=== PATIENT | male | born 1950 | race Caucasian/White ===

== ENCOUNTER → 2019-03-26 | Outpatient (CLI) | payer BC, SELFPAY ==
[2019-03-13 15:57] VITALS: BMI 26.6
--- NOTE | 2019-03-26 14:00 | CDU_ITS ---
Reason For Study: Syncope Rt. Velocities/BP Lt. Velocities/BP Prox CCA 94.3/20 cm/sec. Prox CCA 113.8/22.5 cm/sec. Mid CCA 102.1/26.5 cm/sec. Mid CCA 99.2/24.3 cm/sec. Dist CCA 77.3/21.3 cm/sec. Dist CCA 84.6/20.6 cm/sec. Prox ICA 70.8/18.6 cm/sec. Prox ICA 55.1/16.3 cm/sec. Mid ICA 61.7/23.9 cm/sec. Mid ICA 74/24.8 cm/sec. Dist ICA 93/31.7 cm/sec. Dist ICA 95.5/37.1 cm/sec. Rt. ICA/CCA = 1.0. Lt. ICA/CCA = 1.0. Prox ECA 100.8/17.3 cm/sec. Prox ECA 104.7/17 cm/sec. Rt. Vert. 43.6/10.2 cm/sec. Lt. Vert. 59.8/18.2 cm/sec. Right Extracranial There is intimal thickening but no significant atherosclerotic plaque noted in the right common carotid artery. There is heterogeneous, irregular atherosclerotic plaque noted in the right internal carotid artery. There is intimal thickening but no significant atherosclerotic plaque noted in the right external carotid artery. Antegrade flow is noted in the right vertebral artery. Left Extracranial There is intimal thickening but no significant atherosclerotic plaque noted in the left common carotid artery. There is homogeneous, irregular atherosclerotic plaque noted in the left internal carotid artery. There is no significant atherosclerotic plaque noted in the left external carotid artery. Antegrade flow is noted in the left vertebral artery. Procedure Carotid Duplex 29068. Exam performed in department. 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 <50% stenosis right external carotid Smooth plague at the proximal left internal carotid with <50% stenosis. <50% stenosis left external carotid Patent and antegrade vertebrals bilaterally with <50% stenosis Ordering Physician: Maynor Carter Referring Physician: Mars Garcia Performed By: Gladys Harley RVT
--- NOTE | 2019-03-26 14:05 | ECHOD_ITS ---
Version 2 Reason For Study: syncope/near syncope Procedure This was a 2D Doppler, Color Flow transthoracic echocardiogram. Exam performed in department. Left Ventricle Normal LV size. Left ventricular systolic function is normal. The estimated ejection fraction is 60 %. Stage 1 diastolic dysfunction. No regional wall motion abnormalities noted. Right Ventricle Normal RV size. Normal systolic function. Atria Normal left atrium. Normal right atrium. Mitral Valve Normal mitral valve. Tricuspid Valve Normal tricuspid valve. Mild (1+) tricuspid valve insufficiency. Pulmonary artery systolic pressure is 30 mmHg. Aortic Valve The aortic valve is not well visualized. Pulmonic Valve Normal pulmonic valve. Great Vessels Normal aortic root. The pulmonary artery is normal size. Normal inferior vena cava. Pericardium/Pleural No pericardial effusion. MMode/2D Measurements & Calculations LVIDd: 4.5 cm IVSd: 1.0 cm Ao root diam: 3.5 cm LVIDs: 3.2 cm LVPWd: 1.0 cm RVDd: 3.3 cm FS: 29.9 % LAV(MOD-bp): 61.7 ml LA A4 area: 18.1 cm2 LA dimension(2D): 3.6 cm LAV(MOD-bp) Indexed: 29.4 ml/m2 LAV(MOD-sp2): 57.4 ml LAV(MOD-sp4): 57.2 ml RA A4 area: 12.8 cm2 Time Measurements MV dec time: 0.20 sec Doppler Measurements & Calculations MV E max ubaldo: 71.3 cm/sec Lat Peak E' Ubaldo: 11.5 cm/sec Med Peak E' Ubaldo: 7.7 cm/sec MV A max ubaldo: 104.4 cm/sec E/E' lat: 6.2 E/E' med: 9.2 MV E/A: 0.68 Ao V2 max: 151.1 cm/sec LV V1 max: 132.1 cm/sec PA V2 max: 92.4 cm/sec Ao max P.1 mmHg LV V1 max P.0 mmHg TR max ubaldo: 255.5 cm/sec TR max P.1 mmHg Interpretation Summary Normal LV size. Left ventricular systolic function is normal. The estimated ejection fraction is 60 %. Stage 1 diastolic dysfunction. Mild (1+) tricuspid valve insufficiency. The study was technically difficult. Ordering Physician: Maynor Carter Referring Physician: Mars Garcia Performed By: Fidelia Watson RDCS, RVT
== END | disposition home or self-care (01) ==
PROVIDERS: Family Provider Family Medicine; PCP Family Medicine; Referring Provider Internal Medicine Cardiovascular Disease; Visit Provider Internal Medicine Cardiovascular Disease
DX: R55 Syncope and collapse (principal); I10 Essential (primary) hypertension
CPT/HCPCS: 93306; 93880

== ENCOUNTER 2020-01-26 10:18 | Emergency (ER) | payer BC, SELFPAY ==
[2019-03-13 15:57] VITALS: BMI 26.6
[2020-01-26 10:19] VITALS: BP 111/71; PULSE 111; RESP 18; TEMP 36.4; O2SAT 98; BMI 24.4
--- NOTE | 2020-01-26 10:42 | EKG12_ITS ---
Test Reason : Blood Pressure : / mmHG Vent. Rate : 099 BPM Atrial Rate : 099 BPM P-R Int : 146 ms QRS Dur : 078 ms QT Int : 376 ms P-R-T Axes : 010 073 058 degrees QTc Int : 482 ms Normal sinus rhythm Abnormal ECG Confirmed by LUCILA DUFFY MD ([id number]), purchase request editor KAREN DE LEÓN ([id number]) on 01/28/2020 3:17:45 PM Referred By: LORI Confirmed By:LUCILA DUFFY MD
--- NOTE | 2020-01-26 10:42 | CT_ITS ---
STUDY: CT ABDOMEN AND PELVIS WITH CONTRAST REASON FOR EXAM: Male, 69 years old. FALL X1 WEEK AGO WHILE INTOXICATED -- UNABLE TO RECALL FALL RADIATION DOSAGE (If Supplied By Facility): CTDIvol = ( 14.62 ) mGy, DLP = ( 883.10 ) mGycm TECHNIQUE: Transaxial images were obtained from the dome of the diaphragm to the symphysis pubis without oral contrast. IV 100mL Isovue-300 was administered. Sagittal and coronal images were reconstructed. Individualized dose optimization techniques were used for this CT. COMPARISON: None. FINDINGS: The visualized lung bases are unremarkable. The visualized portions of the heart are within normal limits. Normal liver. Normal gallbladder and extrahepatic biliary system. Normal spleen. Normal pancreas. Normal bilateral adrenal glands. Normal right kidney. Normal left kidney. Normal visualized stomach. Normal small intestine. Fecal retention in the colon. Mild colonic diverticulosis. The appendix is visualized and appears normal. Calcified abdominal aorta. Normal inferior vena cava. Normal retroperitoneum. Mild wall thickening of the urinary bladder. Fatty density at the inguinal canals. Normal abdominal wall. Old right rib fractures. Degenerative vertebral changes. Mild compression of T11, of questionable. CT/Abdomen/Pelvis W IV Cont ONLY IMPRESSION: Diffuse colonic fecal retention. Colonic diverticulosis. Wall thickening of the urinary bladder. Mild compression of T11, of questionable age. Electronically Signed: Tommy Landis DO at 13:01 EDT Tel [phone], Service support ,
--- NOTE | 2020-01-26 10:44 | RAD_ITS ---
STUDY: X-RAY - BILATERAL RIBS WITH CHEST REASON FOR EXAM: Male, 69 years old. TRAUMA/FALL. PAIN ACROSS POSTERIOR RIBS TECHNIQUE - RIBS: 8 view(s) of the ribs. TECHNIQUE - CHEST: Single frontal view of the chest. COMPARISON: None. FINDINGS - RIBS : Normal visualized ribs without a demonstrated fracture. FINDINGS - CHEST: The lungs are clear and expanded. There is no demonstrated pleural abnormality. Normal size heart. Normal mediastinum and bang. Normal visualized pulmonary arteries. There is atherosclerotic calcification of the aortic arch with tortuosity. There are diffuse degenerative changes of the visualized thoracic spine. Normal visualized ribs, clavicles, and shoulders. There is no demonstrated abnormality of the visualized soft tissue structures of the upper abdomen. RAD/Ribs Rasta Min 4V w/PA Chest IMPRESSION: RIBS: Normal x-ray examination of the bilateral ribs. CHEST: Degenerative changes, as described above. No demonstrated acute cardiopulmonary process. Electronically Signed: Isaiah Nur MD at 12:42 EDT , Service support ,
--- NOTE | 2020-01-26 10:45 | ED.VIS.FALL ---
History of Present Illness Chief Complaint: Back Informant: Patient Occurred: Weeks Mechanism/Context: Same level fall, - - syncope Usually ambulates: Without assistance Location: back, ribs Quality of Pain: Aching Narrative: Patient is a 69-year-old male with history of hypertension, EtOH abuse, dizziness, thrombocytopenia, neuropathy of the left lower extremity and fatty liver disease presenting for evaluation for back pain. Patient had a fall 1 week ago. Patient was drinking and was standing in the doorway talking to his when he turned to leave the room. Patient then became lightheaded and passed out. He woke up on the ground. He believes he hit the door frame when he fell. He hit it with his head and his back. Patient states he does have a history of lightheadedness and syncope when he stands up too fast but is not happened in some time. Patient did sustain abrasions to his scalp. Over the past week he is continued to have significant pain in his lower back is not relieved with heating pads or naproxen. States is worse when he tries to walk or move. He states it feels like spasms. Pain is bilateral does not radiate. He also notes he has pain on his right side when he takes a deep breath. Patient was afraid he might have broken something so he finally came to be evaluated today. He states he initially went to urgent care but he had abnormal vital signs so he was sent to the emergency room. Urgent care transmitted a report stating that he was 88/58 blood pressure with a heart rate of 120 for them. Patient denies any bowel or bladder incontinence. He denies any dysuria or hematuria. He denies any chest pain, shortness of breath or difficulty breathing however his has told him that he is been breathing harder with his daily activities for the past few days. Patient denies any other complaints at this time. Past Medical History - Allergies and Home Meds Allergies/Adverse Reactions: Allergies No Known Allergies Allergy (Verified 01/26/20 10:21) Primary Care Physician: Onur Garcia MD [Primary Care Provider] - Past Medical History: - - hypertension, EtOH abuse, dizziness, thrombocytopenia, neuropathy of the left lower extremity and fatty liver disease Surgical History: no surgical history Lives: Spouse/ Significant Other Smoking Status: Never smoker Alcohol: Heavy Review of Systems General: Denies: Chills, Fever, Sweats Eyes: Denies: Visual changes - bilaterally, Diplopia ENT: Denies: Rhinorrhea, Sore throat Cardiovascular: Denies: Chest pain, Palpitations Respiratory: Reports: - - Heavy breathing. Denies: Dyspnea, Cough, Dyspnea on exertion Gastrointestinal: Denies: Abdominal pain, Nausea, Vomiting, Diarrhea, Melena, Hematochezia Genitourinary: Denies: Dysuria, Hematuria, Frequency Musculoskeletal: Reports: Back pain, - - Rib pain. Denies: Extremity Pain Skin: Reports: Abrasions - Scalp. Denies: Rash, Wounds Neurological: Reports: Parasthesia - Chronic?left lower extremity, unchanged. Denies: Headache, Weakness, Numbness Physical Exam Vital Signs/Narrative: Vital Signs Temp Pulse Resp BP Pulse Ox 01/26/20 10:19 97.5 F L 111 H 18 111/71 98 Inital Vital Signs reviewed: Yes General: Well nourished, Well developed Head: Normocephalic, - - Scattered facial abrasions over the scalp that are well scabbed over and healing, healing ecchymosis over the right forehead into the parietal area, again appear to be healing Eyes: Perrl, EOMI ENT: TM's clear, No hemotympanum or drainage, No trauma. Negative for: Nasal trauma, Nasal septal hematoma Neck: Nontender, Full ROM. Negative for: Spinal Tenderness, Paraspinal Tenderness Cardiovascular: Regular rhythm, No murmurs, Tachycardia Respiratory: No distress, CTA bilaterally, Chest tenderness - Right posterior lower ribs, - - No chest wall ecchymosis, crepitus or deformity Abdomen: Soft, Nontender, Nondistended, Normal bowel sounds Back: CVA Tenderness - Right, - - No midline tenderness or step-off sign. 8 cm irregular circumferential area of ecchymosis of the left lumbar region Extremeties: Pelvis is stable. No joint deformities or effusions. Lower extremities are the same length with no rotation Skin: Normal color, No rash, Trauma - Healing ecchymosis of the left neural lumbar region, see above Neurological: Alert, Oriented x3, Cranial nerves II-XII grossly intact, Normal Strength, Normal Sensation, - - Normal coordination Psychological: Normal affect Diagnostic/Tx/Re-eval Clinical Impression(s) from Imaging Studies Abdomen/Pelvis CT 01/26/20 10:42 IMPRESSION: Diffuse colonic fecal retention. Colonic diverticulosis. Wall thickening of the urinary bladder. Mild compression of T11, of questionable age. Electronically Signed: Tommyayesha Landis DO at 13:01 EDT Tel [phone], Service support , Ribs w/Chest X-Ray 01/26/20 10:44 IMPRESSION: RIBS: Normal x-ray examination of the bilateral ribs. CHEST: Degenerative changes, as described above. No demonstrated acute cardiopulmonary process. Electronically Signed: Isaiah Nur MD at 12:42 EDT , Service support , Laboratory Data 01/26/20 01/26/20 01/26/20 10:50 10:50 10:50 WBC 7.2 RBC 2.89 L Hgb 10.6 L Hct 30.7 L MCV 106.2 H MCH 36.7 H MCHC 34.5 RDW Std Deviation 58.1 H RDW Coeff of [place] 15.0 H Plt Count 173 MPV 9.0 Immature Gran % (Auto) 0.300 Neut % (Auto) 73.9 H Lymph % (Auto) 11.8 L Logan % (Auto) 11.9 H Eos % (Auto) 1.3 Baso % (Auto) 0.8 Absolute Neuts (auto) 5.3 Absolute Lymphs (auto) 0.85 Nucleated RBC % 0 PT 14.4 INR 1.2 APTT 28.5 Sodium 136 Potassium 3.0 L Chloride 99 Carbon Dioxide 29.0 Anion Gap 8 BUN 29 H Creatinine 1.31 H Estim Creat Clear Calc 60.06 Est GFR (MDRD) Af Amer 70 Est GFR (MDRD) Non-Af 58 L BUN/Creatinine Ratio 22.1 H Glucose 153 H Calcium 9.1 Total Bilirubin 1.40 H AST 73 H ALT 50 Alkaline Phosphatase 144 H Troponin I < 0.015 Total Protein 7.7 Albumin 3.5 Globulin 4.2 Albumin/Globulin Ratio 0.8 L Lipase 145 Urine Color Urine Clarity Urine pH Ur Specific [place] Urine Protein Urine Glucose (UA) Urine Ketones Urine Occult Blood Urine Nitrite Urine Bilirubin Urine Urobilinogen Ur Leukocyte Esterase Urine RBC Urine WBC Ur Squamous Epith Cells Urine Bacteria Urine Mucus 01/26/20 12:25 WBC RBC Hgb Hct MCV MCH MCHC RDW Std Deviation RDW Coeff of [place] Plt Count MPV Immature Gran % (Auto) Neut % (Auto) Lymph % (Auto) Logan % (Auto) Eos % (Auto) Baso % (Auto) Absolute Neuts (auto) Absolute Lymphs (auto) Nucleated RBC % PT INR APTT Sodium Potassium Chloride Carbon Dioxide Anion Gap BUN Creatinine Estim Creat Clear Calc Est GFR (MDRD) Af Amer Est GFR (MDRD) Non-Af BUN/Creatinine Ratio Glucose Calcium Total Bilirubin AST ALT Alkaline Phosphatase Troponin I Total Protein Albumin Globulin Albumin/Globulin Ratio Lipase Urine Color Yellow Urine Clarity Sl. Cloudy Urine pH 6.5 Ur Specific [place] 1.010 Urine Protein 30 H Urine Glucose (UA) Normal Urine Ketones 15 H Urine Occult Blood Negative Urine Nitrite Negative Urine Bilirubin 3 H Urine Urobilinogen 8 H Ur Leukocyte Esterase 500 H Urine RBC 0 SEEN Urine WBC 5-10 SEEN Ur Squamous Epith Cells 0-5 SEEN Urine Bacteria 1+ Urine Mucus 0 SEEN - Rhythm Strip Rhythm Strip: Sinus Rhythm Rate: 99 Ectopy: None - EKG Initial EKG Interpretation: Sinus Rhythm, - - Full [place] and QRS intervals QTc [address] segments - Medical Decision Making Patient evaluated for back pain after fall. Patient had associated syncope that caused the fall however it was a week ago. He is tachycardic in the emergency room. He was initially at urgent care he was hypotensive and tachycardic. This is why he was sent to the ER. Patient does have significant ecchymosis of his left lower back and I am concerned about a potential for internal injury. Would also like to do a CT of his head however patient declined stating that he does not have any headache or head symptoms and it is been a week. Given his normal neurologic exam and the fact that patient has capacity, patient has a right to refuse a head CT. Patient is anemic however chart review in [facility] shows that his hemoglobin on 03/05/2019 was 10.3. Patient has a mildly elevated creatinine but again this appears to be his baseline. No significant electrolyte or laboratory abnormalities. Urinalysis is consistent with a UTI. Patient notes he has been peeing more frequently and he will be treated. Culture is ordered. She is given a one-time dose of morphine IV in the emergency room and has significant improvement of his symptoms. He had a liter of IV fluids. His tachycardia resolved. Patient next becomes hypertensive while in the emergency room. When patient walks he does seem a little unsteady but he states this is stayed normal for him because of his neuropathy in his leg. CT of the abdomen pelvis not show any large hematoma or bleed. Does show a T11 compression fracture of uncertain age. Patient is clean of back pain but does not have significant pinpoint tenderness in this area. Patient will be discharged home in a course of Keflex, Xylocaine patches for his back pain as well as a short course of Flexeril. Patient is counseled on the risk of sedation and falls with Flexeril and caution be very careful with him. He is instructed to follow-up with his primary care doctor for reevaluation. Patient is counseled on signs and symptoms requiring return to the emergency room. Patient verbalizes agreement and understand this plan. Patient discharged home in stable and improved condition. ED Disposition - Plan for ED Patient: Disposition: Home or Assisted Living Diagnosis: Fall, UTI (urinary tract infection), Compression fracture of T11 vertebra, Back contusion, Rib contusion Instructions: Back Fracture (Compression Fracture), ED Contusion Back, ED CYSTITIS Male Adult, ED Contusion Vs Minor Fx Rib Prescriptions: cycloBENZAPRine HCl [Flexeril] 10 mg PO TID PRN PRN #15 tab PRN Reason: Spasms Transmission Status: Received by [facility]/pharmacy #[id number] Cephalexin [Keflex] 500 mg PO Q12 #10 cap Transmission Status: Received by [facility]/pharmacy #[id number] Methyl Salicylate/Menthol [Salonpas Patch] 1 ea TP DAILY #10 adh..patch Transmission Status: Received by [facility]/pharmacy #[id number] Referrals: Onur Garcia MD [Primary Care Provider] - Additional Instructions: Your CT showed a compression fracture at T11 vertebrae. It is not clear if this is an acute fracture versus an old fracture. This might be contributing to your severity of pain as well as the bruising in your back and ribs from your fall. Please follow-up with your primary care doctor in the next week for evaluation of your passing out and a reevaluation of your back and rib pain. Please limit any alcohol use to prevent further falls. Your urine test does look like you have a UTI. The antibiotics should resolve this.
--- NOTE | 2020-01-26 10:47 | NURSING ---
NO OLD EKGS
[2020-01-26 10:49] VITALS: BP 128/94; PULSE 95; RESP 15
[2020-01-26] MEDS: 0.9% Normal Saline 1,000 ML 1000 ML IV (10:54)
[2020-01-26] MEDS: fentaNYL 100 MCG/2 ML Ampul 50 MCG IV (10:54)
[2020-01-26 11:01] LABS: Absolute Lymphocyte Count 0.85 X10^3/uL (0.83-4.51); Absolute Neutrophil Count 5.3 X10^3/uL (2.0-7.7); Basophil# 0.06 X10^3/uL; Basophil% 0.8 % (0-1); Eosinophil# 0.09 X10^3/uL; Eosinophils% 1.3 % (0-5); Hematocrit 30.7 % (40-54); Hemoglobin 10.6 g/dL (13.0-16.5); Lymphocyte # 0.85 X10^3/ul (4.0); Lymphocyte % 11.8 % (19-41); Mean Corp Hgb Conc 34.5 g/dL (32-36); Mean Corpuscular Hgb 36.7 pg (27.0-32.0); Mean Corpuscular Volume 106.2 fL (80-94); Monocyte# 0.86 X10^3/uL; Monocyte% 11.9 % (0-10); NRBC Flagged by Analyzer 0 % (0-5); Neutrophil # 5.32 X10^3/uL (2.7-7.7); Neutrophil % 73.9 % (47-70); Platelet Count 173 K/mm3 (150-450); RBC Distribution Width SD 58.1 fl (35.1-43.9); Red Blood Count 2.89 M/mm3 (4.6-6.2); White Blood Count 7.2 K/mm3 (4.4-11.0)
[2020-01-26 11:09] LABS: International Normalized Ratio 1.2; Prothrombin Time (Protime)PT. 14.4 SECONDS (11.7-14.9)
[2020-01-26 11:10] LABS: Partial Thromboplast Time 28.5 Seconds (24.1-36.2)
[2020-01-26 11:19] LABS: ALB/GLOB Ratio 0.8 RATIO (0.9-2.4); AST(SGOT) 73 U/L (15-37); Alanine Aminotransfer ALT/SGPT 50 U/L (16-61); Albumin, Serum 3.5 g/dL (3.2-5.0); Alkaline Phosphatase 144 U/L (45-117); Anion Gap 8 (5-15); BUN 29 mg/dL (7-18); BUN/Creat Ratio 22.1 RATIO (10-20); Calcium,Total 9.1 mg/dL (8.5-10.1); Chloride 99 mmol/L (98-107); Creatinine, Serum 1.31 mg/dL (0.70-1.30); EST Glomerular Filtration Rate 58 mL/min (>60); Est Glom Filt Rate - Afr Amer 70 mL/min (>60); Estimated Creatinine Clearance 60.06 ml/min; Globulin 4.2 g/dL (2.2-4.2); Glucose 153 mg/dL (74-106); Lipase 145 U/L (73-393); Protein, Total 7.7 g/dL (6.4-8.2); Sodium Level 136 mmol/L (136-145)
[2020-01-26 12:32] VITALS: BP 187/100; PULSE 90; RESP 16
[2020-01-26 12:33] LABS: Mucous, Urine 0 SEEN /hpf (<or=2+); Red Blood Cells-Urine 0 SEEN /hpf (0-5)
[2020-01-26 12:49] LABS: Color, Urine Yellow (Yellow); Glucose, Dipstick Normal (Normal); Ketone-Dipstick 15 mg/dl (Negative); Leukocyte Esterase-Dipstick 500 /ul (Negative); Nitrite-Dipstick Negative (Negative); Occult Blood-Urine Negative /ul (Negative); Protein-Dipstick 30 mg/dl (Negative); Urine Clarity Sl. Cloudy (Clear); Urine Urobilinogen 8 mg/dl (Normal); Urine pH 6.5 (5.0 - 8.0)
[2020-01-26 12:51] LABS: Urine Bilirubin Dipstick 3 mg/dL (Negative)
[2020-01-26 12:57] LABS: White Blood Cells 5-10 SEEN /hpf (0-5)
[2020-01-26 12:58] LABS: Bacteria 1+ /hpf (None Seen); Squamous Epithelial Cells - UA 0-5 SEEN /hpf (0-5)
[2020-01-26 13:31] VITALS: BP 166/94; PULSE 89; RESP 18; O2SAT 99
== END 2020-01-26 14:30 | disposition home or self-care (01) ==
PROVIDERS: Emergency Provider Emergency Medicine; PCP Family Medicine
DX: S22.089A Unspecified fracture of T11-T12 vertebra, initial encounter for closed fracture (principal); N39.0 Urinary tract infection, site not specified; S20.219A Contusion of unspecified front wall of thorax, initial encounter; S30.0XXA Contusion of lower back and pelvis, initial encounter; S00.01XA Abrasion of scalp, initial encounter; W19.XXXA Unspecified fall, initial encounter; W01.198A Fall on same level from slipping, tripping and stumbling with subsequent striking against other object, initial encounter; Y93.9 Activity, unspecified; Y92.009 Unspecified place in unspecified non-institutional (private) residence as the place of occurrence of the external cause; Y99.9 Unspecified external cause status; R00.0 Tachycardia, unspecified; I95.9 Hypotension, unspecified; D64.9 Anemia, unspecified; R55 Syncope and collapse; I10 Essential (primary) hypertension; Z79.899 Other long term (current) drug therapy
CPT/HCPCS: 71111; 74177; 80053; 81001; 83690; 84484; 85025; 85610; 85730; 87086; 87088; 93005; 96361; 96374; 99283; J7030; Q9967; A4216

== ENCOUNTER 2020-02-20 10:12 | Emergency (ER) | payer BC, SELFPAY ==
[2020-02-20 10:13] VITALS: BP 159/99; PULSE 109; RESP 18; TEMP 36.6; O2SAT 98; BMI 23.8
[2020-02-20 10:24] VITALS: BP 159/99; PULSE 109; RESP 18; TEMP 36.7; O2SAT 98
--- NOTE | 2020-02-20 10:34 | ED.DCSUM_ITS ---
- ER Visit Summary Date of Service: 02/20/20 Chief Complaint: Swelling to left elbow] History of Present Illness: The patient is a 69 M [the emergency department with swelling to the left elbow that started about 3 weeks ago. Patient states that he is able to daily express fluid from it. He denies any fever or chills. Patient states he had a similar episode years ago involving his right elbow. He has no history of gout.] Physical Examination: [HEENT-PERRLA, EOMI. Cranial nerves II through XII grossly intact. TMs clear. Mucous membranes moist. No adenopathy. Cardiovascular-regular rate and rhythm without murmur or ectopy Lungs-clear to auscultation, chest wall stable without crepitus or subcu emphysema Abdomen-normoactive bowel sounds, soft, nontender, no rebound or rigidity, no peritoneal signs. Extremities-intact ?4, normal range of motion, normal pulses. Left elbow- patient has a swollen and edematous bursa. No cellulitic changes noted. He is neurovascular intact distally. Patient has normal range of motion flexion extension at the elbow. He has normal range of motion with pronation and supination.] Test Results: [Fluid from bursa sent for analysis including culture] Emergency Department Course and Treatment: [I discussed case with orthopedic surgeon on-call Dr. Elliott who asked that I obtain some fluid for culture. Area of the left elbow was sterilely draped and prepped. Skin was cleansed with Betadine. Using an 18-gauge needle I entered the bursa and approximately 10 cc of fluid that was straw-colored was obtained.] Treatment Plan: [Patient will be treated with Keflex and referred to orthopedics for follow-up] Disposition: [Discharged home in stable condition] Impression: [Bursitis left elbow] This note was generated with [employer] dictation software. It may contain incorrect words, spelling, and punctuation that were not noted in review of the chart prior to signing ED Disposition - Plan for ED Patient: Referrals: Onur Garcia MD [Primary Care Provider] -
--- NOTE | 2020-02-20 10:37 | DCINST.ED_ITS ---
ED Disposition - Plan for ED Patient: Instructions: ED Bursitis Prescriptions: Cephalexin [Keflex] 500 mg PO Q6 #40 cap Transmission Status: Pending to [facility]/pharmacy #[id number] Referrals: Onur Gacria MD [Primary Care Provider] - Hannah Elliott DO [STAFF PHYSICIAN] - 3-5 Days
[2020-02-20 10:50] LABS: Pathologist Comment May follow
[2020-02-20 10:51] VITALS: PULSE 98; RESP 17; O2SAT 97
[2020-02-20 11:36] LABS: AUTO B FLUID DILUENT BKGD CT WBC <0.1 RBC <0.01 (W<.1,R<.01); CRYSTALS, BODY FLUID See PATH REV; Source- Body Fluid SYNOVIAL
[2020-02-20 11:37] LABS: Appearance /Synovial Fluid Clear (CLEAR); Color / Synovial Fluid Yellow (Pale Yellow); Source / Synovial Fluid LEFT ELBOW
[2020-02-20 11:54] LABS: RBC /Synovial Fluid 170 /mm3 (0)
[2020-02-20 11:58] LABS: Body Fluid QC Type(s) BF1,BF2; Lymph 11 %; Monocyte /Synovial Fluid 24 %; Neutrophil 65 % (0-25)
[2020-02-21 11:45] LABS: Pathologist Review Reviewed
== END 2020-02-20 10:51 | disposition home or self-care (01) ==
LOC: ED 10:46
PROVIDERS: Emergency Provider Emergency Medicine; PCP Family Medicine
DX: M70.22 Olecranon bursitis, left elbow (principal); Y93.9 Activity, unspecified; I10 Essential (primary) hypertension; G62.9 Polyneuropathy, unspecified; Z79.899 Other long term (current) drug therapy
CPT/HCPCS: 20605; 20610; 87070; 87075; 87205; 89050; 89051; 89060; 99282

== ENCOUNTER 2020-04-22 13:03 | Emergency (ER) | payer MEDICARE, BC, SELFPAY ==
[2020-02-24 14:53] VITALS: BMI 23.8
[2020-04-22 13:06] VITALS: BP 152/95; PULSE 96; RESP 12; TEMP 36.6; O2SAT 99; BMI 23.8
[2020-04-22 13:12] VITALS: PULSE 91; RESP 16; O2SAT 100
--- NOTE | 2020-04-22 13:33 | CT_ITS ---
We are attempting to reach an attending provider to discuss findings. An addendum with communication details will be sent when the communication is complete. STUDY: CT BRAIN WITHOUT CONTRAST REASON FOR EXAM: Male, 69 years old. HEAD INJURY, FALL RADIATION DOSAGE (If Supplied By Facility): CTDIvol = ( 44.99 ) mGy, DLP = ( 880.47 ) mGycm TECHNIQUE: Transaxial CT imaging of the brain was performed without administration of intravenous contrast material. Individualized dose optimization techniques were used for this CT. COMPARISON: No relevant priors. FINDINGS: Small left frontal scalp hematoma. Normal calvarium. There is disproportionate enlargement of the lateral and third ventricles, as compared to the extra-axial spaces. The findings suggest normal pressure hydrocephalus (NPH). Normal white matter tracts of the cerebral hemispheres. Normal basal ganglia and thalami. Normal brainstem. Normal cerebellum. Small areas of increased attenuation in the periphery of the left frontal lobe consistent with subarachnoid hemorrhage. There are areas of increased attenuation within the occipital horn of the left lateral ventricle consistent with intraventricular hemorrhage. There is some increased attenuation along left-sided brainstem consistent with subarachnoid hemorrhage. There are no findings of an acute ischemic infarction. Normal visualized paranasal sinuses. CT/Brain/Head without Contrast IMPRESSION: Small left frontal scalp hematoma with small amounts of left frontal subarachnoid hemorrhage, intraventricular hemorrhage of the left lateral ventricle and subarachnoid hemorrhage along the left side of the brainstem. Electronically Signed: Isaiah Strong MD at 14:02 EDT Tel , Service support ,
--- NOTE | 2020-04-22 13:33 | EKG12_ITS ---
Test Reason : Blood Pressure : / mmHG Vent. Rate : 096 BPM Atrial Rate : 096 BPM P-R Int : 160 ms QRS Dur : 076 ms QT Int : 366 ms P-R-T Axes : 046 -04 033 degrees QTc Int : 462 ms Normal sinus rhythm Normal ECG Confirmed by SCOTTY WESTON ([id number]), editorial assistant MAGALIS NARAYAN ([id number]) on 04/27/2020 9:35:34 AM Referred By: BROOKE Confirmed By:SCOTTY WESTON
[2020-04-22 13:54] LABS: Absolute Lymphocyte Count 2.02 X10^3/uL (0.83-4.51); Basophil# 0.06 X10^3/uL; Eosinophil# 0.23 X10^3/uL; Eosinophils% 3.9 % (0-5); Hematocrit 36.1 % (40-54); Hemoglobin 12.4 g/dL (13.0-16.5); Lymphocyte # 2.02 X10^3/ul (4.0); Lymphocyte % 34.2 % (19-41); Mean Corp Hgb Conc 34.3 g/dL (32-36); Mean Corpuscular Hgb 35.5 pg (27.0-32.0); Mean Corpuscular Volume 103.4 fL (80-94); Mean Platelet Vol. 8.8 fl (6.2-12.0); Monocyte# 0.58 X10^3/uL; Monocyte% 9.8 % (0-10); NRBC Flagged by Analyzer 0 % (0-5); Neutrophil % 50.8 % (47-70); Platelet Count 113 K/mm3 (150-450); RBC Distribution Width CV 12.9 % (11.6-14.6); RBC Distribution Width SD 48.2 fl (35.1-43.9); Red Blood Count 3.49 M/mm3 (4.6-6.2); White Blood Count 5.9 K/mm3 (4.4-11.0)
[2020-04-22] MEDS: Diphth,Pertuss(Acell),Tet Vac 0.5 ML Vial IM (13:56)
[2020-04-22] MEDS: 0.9% Normal Saline 1,000 ML 1000 ML IV (14:03)
[2020-04-22] MEDS: BACITRACIN 15 GM Tube 1 APPLIC TOPICAL (14:03)
[2020-04-22 14:04] VITALS: BP 139/88; PULSE 95; RESP 13; O2SAT 97
[2020-04-22 14:09] LABS: ALB/GLOB Ratio 0.8 RATIO (0.9-2.4); AST(SGOT) 60 U/L (15-37); Alanine Aminotransfer ALT/SGPT 24 U/L (16-61); Albumin, Serum 3.4 g/dL (3.2-5.0); Alkaline Phosphatase 149 U/L (45-117); Anion Gap 11 (5-15); BUN 11 mg/dL (7-18); BUN/Creat Ratio 12.2 RATIO (10-20); Calcium,Total 8.7 mg/dL (8.5-10.1); Chloride 103 mmol/L (98-107); EST Glomerular Filtration Rate 90 mL/min (>60); Est Glom Filt Rate - Afr Amer 108 mL/min (>60); Estimated Creatinine Clearance 87.42 ml/min; Globulin 4.4 g/dL (2.2-4.2); Glucose 93 mg/dL (74-106); Potassium 3.7 mmol/L (3.5-5.1); Protein, Total 7.8 g/dL (6.4-8.2); Sodium Level 141 mmol/L (136-145)
[2020-04-22 14:38] LABS: International Normalized Ratio 1.1; Prothrombin Time (Protime)PT. 13.8 SECONDS (11.7-14.9)
[2020-04-22 14:39] LABS: Partial Thromboplast Time 30.4 Seconds (24.1-36.2)
--- NOTE | 2020-04-22 14:48 | NURSING ---
1431 CALLED [facility]IN [facility]ADALU[facility] FOR TRANSFER.
--- NOTE | 2020-04-22 14:55 | NURSING ---
20 MIN ETA FROM PHYSICANS
[2020-04-22 14:56] VITALS: BP 139/88; PULSE 94; RESP 13; O2SAT 98
[2020-04-22 15:00] VITALS: BP 143/96; PULSE 101; RESP 16; O2SAT 97
--- NOTE | 2020-04-22 15:22 | ED.DCSUM_ITS ---
- ER Visit Summary Date of Service: 04/22/20 Chief Complaint: Syncope History of Present Illness: The patient is a 69 M who presents with a syncopal episode that occurred today. heard the patient fall and when she got to his side he was still unconscious. states patient had a loss of consciousness for approximately 3 minutes. noticed that the patient has a scalp laceration was bleeding from that. states that the patient came to and was disoriented. states that the paramedics came and were helping him into the cot when he had a second syncopal episode. Patient did not fall with a second syncopal episode because the paramedics were holding onto them. Physical Examination: Vital signs are stable. Patient is afebrile. Patient is in no acute distress. Patient is awake and alert and oriented to person and place. Patient knows the day of the week but does not know the month or the year. Cranial nerves II through XII are grossly intact. There are no focal motor or sensory deficits noted. Heart was regular rate and rhythm. Lungs are clear and equal bilaterally. Abdomen is soft and nontender. Skin is warm and dry. There is a 7 cm laceration over the left frontal and forehead area. There is moderate gapping of the wound margins. There is no bony crepitance or step- off. There is no foreign body noted. Test Results: CBC shows a mild thrombocytopenia of 113. Comprehensive metabolic profile was essentially within normal limits. PT with INR and PTT were normal. CT scan of the brain was obtained. There is a left frontal subarachnoid hemorrhage along with intraventricular hemorrhage of the left lateral ventricle and subarachnoid hemorrhage along the left side of the brainstem. This was interpreted by the radiologist. Emergency Department Course and Treatment: Patient was given a tetanus booster. The wound was cleaned and irrigated with copious amounts of normal saline. The wound was anesthetized with 1% lidocaine with epinephrine locally. The wound was closed with 8 simple interrupted #4-0 nylon sutures under sterile technique. Patient tolerated the procedure well. Bacitracin dressing was applied. Case was discussed with the [facility] transfer line. Patient was accepted to the service of Dr. Rivers. Patient will be transferred to the emergency department at [facility]. Patient and family understood and were agreeable with the plan. All questions were answered. Disposition: Transfer to [facility] Impression: 1. Subarachnoid hemorrhage 2. Syncope 3. Scalp laceration Critical care time: 50 minutes. This was time spent obtaining history, performing physical examination, documenting, interpreting test results, discussion with consultants, and determining disposition. This note was generated with [employer] dictation software. It may contain incorrect words, spelling, and punctuation that were not noted in review of the chart prior to signing ED Disposition - Plan for ED Patient: Disposition: [facility] Diagnosis: Subarachnoid hemorrhage, Syncope, Scalp laceration Referrals: Onur Garcia MD [Primary Care Provider] -
--- NOTE | 2020-04-22 15:39 | ED.RN ---
REPORT TO [facility]. PT SKIN P/W/D, RESP EVEN AND UNLABORED, PT ALERT TO SELF, NO DISTRESS NOTED. PT OUT OF ED WITH EMS FOR TRANSPORT TO [facility] ED.
== END 2020-04-22 15:46 | disposition short-term general hospital (02) ==
PROVIDERS: Emergency Provider Emergency Medicine; PCP Family Medicine
DX: S06.6X1A Traumatic subarachnoid hemorrhage with loss of consciousness of 30 minutes or less, initial encounter (principal); R55 Syncope and collapse; S01.01XA Laceration without foreign body of scalp, initial encounter; W19.XXXA Unspecified fall, initial encounter; Y93.9 Activity, unspecified; Y92.9 Unspecified place or not applicable; Y99.9 Unspecified external cause status; Z23 Encounter for immunization; M54.9 Dorsalgia, unspecified; D69.6 Thrombocytopenia, unspecified; I10 Essential (primary) hypertension; Z79.899 Other long term (current) drug therapy
CPT/HCPCS: 12002; 70450; 80053; 84484; 85025; 85610; 85730; 90715; 93005; 96360; 99285; A4216

== ENCOUNTER 2020-05-07 15:13 | Inpatient (IN) | payer MEDICARE, BC, SELFPAY ==
[2020-05-07 15:50] VITALS: BP 124/67; PULSE 89; RESP 16; TEMP 36.8; O2SAT 94; BMI 24.9; BMI 25.0
[2020-05-07] MEDS: cycloBENZAPRine HCl 10 MG Tablet PO (18:44)
[2020-05-07] MEDS: Acetaminophen 325 MG Tablet 650 MG PO (18:45)
[2020-05-07 18:55] VITALS: BP 132/64; PULSE 74; RESP 18; TEMP 36.8; O2SAT 96
[2020-05-07 19:20] VITALS: O2SAT 96
[2020-05-07] MEDS: Magnesium Hydroxide 30 ML UDC PO (20:45)
[2020-05-07] MEDS: Magnesium Oxide 400 MG Tablet PO (20:46)
[2020-05-07] MEDS: Thiamine Hydrochloride 100 MG Tablet PO (20:46)
[2020-05-07] MEDS: Senna/Docusate Sodium 1 Tablet 2 TABLET PO (20:46)
[2020-05-07] MEDS: MELATONIN 3 MG TABLET 6 MG PO (20:46)
[2020-05-07] MEDS: Propranolol 10 MG Tablet 30 MG PO (20:46)
[2020-05-07] MEDS: Tamsulosin HCl 0.4 MG Capsule PO (20:46)
[2020-05-07] MEDS: dilTIAZem 30 MG Tablet 90 MG PO (20:46)
[2020-05-07] MEDS: AMOXICILLIN 500 MG CAPSULE PO (20:47)
--- NOTE | 2020-05-07 21:41 | PCM.HP.STD ---
Problem List (1) Debility Status: Acute (2) Fall Status: Acute (3) SAH (subarachnoid hemorrhage) Status: Acute (4) IVH (intraventricular hemorrhage) Status: Acute (5) Dysphagia Status: Acute (6) Scalp hematoma Status: Acute (7) Alcohol abuse Status: Chronic (8) Lumbar spinal stenosis Status: Chronic (9) Closed T4 fracture Status: Acute (10) Closed T11 fracture Status: Acute (11) Closed L1 vertebral fracture Status: Acute (12) Closed L2 vertebral fracture Status: Acute (13) Hypertension Status: Chronic (14) Obstructive sleep apnea Status: Chronic History of Present Illness Date of Admission: 05/07/20 Chief Complaint: Here for greater than 3 hours daily rehabilitation, strengthening, prior to discharge home with . The patient is a 69 year old Male with past medical history of heavy alcohol use, hypertension, obstructive sleep apnea, suffered a fall 04/22/20, found down unconscious for 3 minutes. Presented to [facility], found to have Intracerebral hemorrhage, transferred to [facility]. His stay was complicated by dysphagia requiring temporary tube feeding via [place], agitation/confusion/combativeness. Alcohol withdrawal. He is being admitted to for greater than 3 hours daily of rehabilitation, strengthening, prior to discharge home with . Past Medical History Past Medical History (Chronic Problems): Chronic Problems (Last Updated 03/13/19 @ 16:12 by Anita Elizondo) Alcohol abuse (Chronic) Lumbar spinal stenosis (Chronic) Hypertension (Chronic) Obstructive sleep apnea (Chronic) Essential (primary) hypertension (Chronic) Medical History: Medical History (Last Updated 03/13/19 @ 16:12 by Anita Elizondo) Neuropathy of left lower extremity (Acute) G57.92 Dizziness (Acute) R42 Syncope (Acute) R55 Essential (primary) hypertension (Chronic) I10 Anemia D64.9 ETOH abuse F10.10 Fatty liver K76.0 Obstructive sleep apnea G47.33 Thrombocytopenia D69.6 Allergies No Known Allergies Allergy (Verified 04/22/20 13:04) Home Medications: Ambulatory Orders Medication Instructions Recorded Acetaminophen [Tylenol] 650 mg PO Q6H PRN PRN 05/07/20 Albuterol Inhaler [Ventolin Hfa] 2 puff INHALATION Q4H PRN PRN 05/07/20 Ampicillin Trihydrate 500 mg PO 4X/DAY 05/07/20 Ascorbic Acid [Vitamin C] 1 tab PO BID 05/07/20 Cholecalciferol (VIT D3) [Vitamin 3,000 units PO DAILY 05/07/20 D3] Diltiazem [Cardizem] 90 mg PO TID 05/07/20 Finasteride [Proscar] 5 mg PO DAILY 05/07/20 Flexeril 10 mg PO BID PRN PRN 05/07/20 Folic Acid 1 mg PO DAILY 05/07/20 Lisinopril [Zestril] 40 mg PO DAILY 05/07/20 Magnesium 500 mg PO BID 05/07/20 Melatonin 6 mg PO QHS 05/07/20 Miralax 17 g PO DAILY 05/07/20 Modafinil [Provigil] 200 mg PO DAILY 05/07/20 Multivit with Iron,Minerals 1 tab PO DAILY 05/07/20 Propranolol HCl [Inderal (Beta 10 mg PO TID 05/07/20 Bonnie)] Tamsulosin HCl [Flomax] 0.4 mg PO QHS 05/07/20 Thiamine Mononitrate (Vit B1) 1 tab PO TID 05/07/20 [Vitamin B-1] Vitamin B Complex [B Complex] 1 tab PO DAILY 05/07/20 Surgical History: - - Colonoscopy. Psychiatric History: No pertinent psych hx Lives: Spouse/ Significant Other Smoking Status: Never smoker Tobacco Use: Non-smoker Alcohol: Heavy Drugs: None - *Family History Maternal Family History: Family History (Last Reviewed 03/13/19 @ 15:57 by Anita Elizondo) Mother Heart disease Hypertension Father Hypertension History Items: No pertinent history Paternal Family History: Family History (Last Reviewed 03/13/19 @ 15:57 by Anita Elizondo) Mother Heart disease Hypertension Father Hypertension History Items: No pertinent history Review of Systems Constitutional: Denies: Chills, Fever, Weight Change HEENT: Denies: Head Aches, Sinus Congestion, Sinus Drainage Cardiovascular: Denies: Chest Pain, Palpitations Respiratory: Denies: Cough, Shortness of breath at rest, Sputum production Gastrointestinal: Denies: Abdominal Pain, Nausea, Vomiting Genitourinary: Denies: Dysuria Musculoskeletal: Reports: Arm Pain, Back Pain. Denies: Joint Pain, Joint Tenderness Skin: Denies: Rash, Wounds Neurological: Denies: Numbness, Tingling, Focal weakness Psychiatric: Denies: Anxiety, Depression, Homicidal Ideations, Suicidal Ideations Hematologic/ Lymphatic: Denies: Easy Bruising, Easy Bleeding VTE Information - Inpt Only VTE Present on Admission: No VTE Mechan Device Prophylaxis: Knee High TANYA Hose VTE Pharm Prophylaxis ordered?: No Reason prophylaxis not ordered:: Medical Contraindication, Treatment Not Indicated Patient Problems: Active and Suspected Problems (Last Updated 03/13/19 @ 16:12 by Anita Elizondo) Debility (Acute) Fall (Acute) SAH (subarachnoid hemorrhage) (Acute) IVH (intraventricular hemorrhage) (Acute) Dysphagia (Acute) Scalp hematoma (Acute) Closed T4 fracture (Acute) Closed T11 fracture (Acute) Closed L1 vertebral fracture (Acute) Closed L2 vertebral fracture (Acute) - Physical Exam Vitals/I&O's: Vital Signs Temp Pulse Resp BP Pulse Ox 98.2 F 74 18 132/64 H 96 05/07/20 18:55 05/07/20 18:55 05/07/20 18:55 05/07/20 18:55 05/07/20 19:20 Oxygen Delivery Method Room Air Weight: 83.461 kg Body Mass Index (BMI) 24.9 Intake and Output for Last 24 Hours 05/05/20 05/06/20 05/07/20 23:59 23:59 23:59 Intake Total 120 / 120 Balance 120 / 120 General: Alert, Oriented x3, Cooperative HEENT: Atraumatic, PERRLA, EOMI, Normocephalic Neck: Supple, No JVD, Negative Carotid Bruits Lungs: Clear to auscultation, Normal air movement Cardiovascular: Regular rate, No murmurs Abdomen: Bowel Sounds Present, Soft, Non Tender Extremities: No edema, Capillary Refill Less than 3 Seconds Skin: No rashes, No breakdown Musculoskeletal: No Tenderness to Palpation of Joints or Extremities, - - Right arm splinted, left arm wrapped. Neurological: Cranial nerves II-XII grossly intact Psych/Mental Status: Normal Affect, Appropriate Current Medications Acetaminophen (Tylenol) 650 mg PO Q6H PRN PRN PRN Reason: Pain 1-10/10 or Fever Last Admin: 05/07/20 18:45 Dose: 650 mg Documented by: Albuterol Sulfate (Ventolin Aerosols) 2.5 mg INHALATION Q4H PRN PRN PRN Reason: WHEEZING/SOB Amoxicillin (Amoxil) 500 mg PO TID [facility] Stop: 05/12/20 22:01 Last Admin: 05/07/20 20:47 Dose: 500 mg Documented by: Ascorbic Acid (Vitamin C) 500 mg PO DAILY [facility] Bisacodyl (Dulcolax) 10 mg RECTAL .PRN X 1 PRN PRN Reason: Constipation Cholecalciferol (Vitamin D (25mcg)) 3,000 unit PO DAILY [facility] Cyclobenzaprine HCl (Flexeril) 10 mg PO BID PRN PRN PRN Reason: MUSCLE SPASMS Last Admin: 05/07/20 18:44 Dose: 10 mg Documented by: Diltiazem HCl (Cardizem) 90 mg PO TID [facility] Last Admin: 05/07/20 20:46 Dose: 90 mg Documented by: Finasteride (Proscar) 5 mg PO DAILY [facility] Folic Acid (Folic Acid) [facility] Lisinopril (Zestril) 40 mg PO DAILY [facility] Magnesium Hydroxide (Milk Of Magnesia) 30 ml PO .PRN X 1 PRN PRN Reason: Constipation Last Admin: 05/07/20 20:45 Dose: 30 ml Documented by: Magnesium Oxide (Mag-Ox 400) 400 mg PO BID [facility] Last Admin: 05/07/20 20:46 Dose: 400 mg Documented by: Melatonin (Melatonin) 6 mg PO QHS [facility] Last Admin: 05/07/20 20:46 Dose: 6 mg Documented by: Modafinil (Provigil) 200 mg PO DAILY [facility] Stop: 05/22/20 10:01 Multivitamins (Allbee W/C Caplet, Thera B Comp/C) 1 capsule [facility] Multivitamins/Minerals (Multivitamin With Minerals (Bkc)) 1 tablet PO DAILY@0800 [facility] Polyethylene Glycol (Miralax) 17 gm PO DAILY [facility] Propranolol HCl (Inderal) 30 mg PO TID [facility] Last Admin: 05/07/20 20:46 Dose: 30 mg Documented by: Senna/Docusate Sodium (Senokot-S, Geri-Colace) 2 tablet PO BID [facility] Last Admin: 05/07/20 20:46 Dose: 2 tablet Documented by: Tamsulosin HCl (Flomax) 0.4 mg PO QHS [facility] Last Admin: 05/07/20 20:46 Dose: 0.4 mg Documented by: Thiamine HCl (Vitamin B1) 100 mg PO TID [place] Last Admin: 05/07/20 20:46 Dose: 100 mg Documented by: Assessment/Plan All Active Problems (Last Updated 03/13/19 @ 16:12 by Anita Elizondo) Debility (Acute) Fall (Acute) SAH (subarachnoid hemorrhage) (Acute) IVH (intraventricular hemorrhage) (Acute) Dysphagia (Acute) Scalp hematoma (Acute) Closed T4 fracture (Acute) Closed T11 fracture (Acute) Closed L1 vertebral fracture (Acute) Closed L2 vertebral fracture (Acute) Neuropathy of left lower extremity (Acute) Dizziness (Acute) Syncope (Acute) 69 year old male with below past medical history significant for alcoholism, hospitalized for subarachnoid hemorrhage, complicated by dysphagia, alcohol withdrawal, admitted to for greater than 3 hours daily rehabilitation, strengthening, prior to discharge home with . Debility - PT/OT. Cognition - ST. Pain - Tylenol 1000MG Q6H PRN pain (1-3), Oxycodone 5MG Q4H PRN pain (4-10). Bowel - Miralax 17GM daily, Senna/colace 2 tablets BID, Dulcolax 10MG [place] daily PRN, MOM 30ML PO PRN. Shortness of breath - Ventolin 2.5MG Q4H PRN. ID - Amoxicillin 500MG TID thru 05/12/20. Vitamin C deficiency - Vitamin C 500MG daily. Vitamin D deficiency - Vitamin D3 3000IU daily. Muscle spasm - Flexeril 10MG BID PRN. Hypertension - Cardizem 90MG TID, Propranolol 30MG TID, Lisinopril 40MG daily. BPH - Finasteride 5MG daily, Tamsulosin 0.4MG daily. Alcohol abuse - Folic acid 1MG daily, Thiamine 100MG TID. Hypomagnesemia - Magnesium Oxide 400MG BID. Insomnia - Melatonin 6MG QHS. Nutrition - MVI daily. Vitamin B deficiency - Vitamin B complex 1 capsule daily.
[2020-05-08] VITALS (14 sets, daily range): BP systolic 98–139; BP diastolic 57–79; PULSE 78–97; RESP 16–20; TEMP 36.4–37.2; O2SAT 95–97
[2020-05-08 05:34] LABS: Absolute Lymphocyte Count 1.66 X10^3/uL (0.83-4.51); Absolute Neutrophil Count 8.4 X10^3/uL (2.0-7.7); Basophil# 0.05 X10^3/uL; Basophil% 0.4 % (0-1); Eosinophil# 0.25 X10^3/uL; Eosinophils% 2.2 % (0-5); Hematocrit 22.2 % (40-54); Hemoglobin 7.1 g/dL (13.0-16.5); Lymphocyte # 1.66 X10^3/ul (4.0); Lymphocyte % 14.9 % (19-41); Mean Corpuscular Hgb 32.4 pg (27.0-32.0); Mean Corpuscular Volume 101.4 fL (80-94); Mean Platelet Vol. 8.9 fl (6.2-12.0); Monocyte# 0.68 X10^3/uL; Monocyte% 6.1 % (0-10); NRBC Flagged by Analyzer 0 % (0-5); Neutrophil # 8.43 X10^3/uL (2.7-7.7); Neutrophil % 75.8 % (47-70); Platelet Count 620 K/mm3 (150-450); RBC Distribution Width SD 48.5 fl (35.1-43.9); Red Blood Count 2.19 M/mm3 (4.6-6.2); White Blood Count 11.1 K/mm3 (4.4-11.0)
[2020-05-08 05:55] LABS: ALB/GLOB Ratio 0.4 RATIO (0.9-2.4); AST(SGOT) 59 U/L (15-37); Alanine Aminotransfer ALT/SGPT 79 U/L (16-61); Alkaline Phosphatase 248 U/L (45-117); Anion Gap 6 (5-15); BUN 25 mg/dL (7-18); BUN/Creat Ratio 34.5 RATIO (10-20); Calcium,Total 8.7 mg/dL (8.5-10.1); Chloride 105 mmol/L (98-107); Creatinine, Serum 0.72 mg/dL (0.70-1.30); EST Glomerular Filtration Rate 115 mL/min (>60); Est Glom Filt Rate - Afr Amer 139 mL/min (>60); Estimated Creatinine Clearance 78.68 ml/min; Globulin 4.8 g/dL (2.2-4.2); Glucose 94 mg/dL (74-106); Magnesium 1.6 mg/dL (1.6-2.6); Phosphorus 4.3 mg/dL (2.5-4.9); Potassium 3.9 mmol/L (3.5-5.1); Protein, Total 6.8 g/dL (6.4-8.2); Sodium Level 136 mmol/L (136-145)
[2020-05-08] MEDS: Bisacodyl 10 MG Suppository RECTAL (06:42)
[2020-05-08] MEDS: Thiamine Hydrochloride 100 MG Tablet PO ×3 (06:46→21:27)
[2020-05-08] MEDS: dilTIAZem 30 MG Tablet 90 MG PO ×3 (06:46→21:28)
[2020-05-08] MEDS: AMOXICILLIN 500 MG CAPSULE PO ×3 (06:46→21:28)
[2020-05-08] MEDS: Propranolol 10 MG Tablet 30 MG PO ×3 (06:46→21:28)
[2020-05-08] MEDS: oxyCODONE 5 MG Tablet PO ×4 (06:56→21:27)
--- NOTE | 2020-05-08 08:00 | NURSING ---
Patient and aware of need for blood transfusion per Dr. Tam orders for hgb 7.1 and consent given by both parties. Patient does report feelings of dizziness on and off with movements.
[2020-05-08] MEDS: Polyethylene Glycol 3350 17 GM PACKET PO (08:01)
[2020-05-08] MEDS: Lisinopril 40 MG Tablet PO (08:01)
[2020-05-08] MEDS: Vitamin B Comp W-C Capsule 1 CAP PO (08:01)
[2020-05-08] MEDS: Ascorbic Acid 500 MG Tablet PO (08:01)
[2020-05-08] MEDS: Multivitamins,Ther W-Minerals Tablet 1 TABLET PO (08:01)
[2020-05-08] MEDS: Magnesium Oxide 400 MG Tablet PO ×2 (08:02→21:28)
[2020-05-08] MEDS: Folic Acid 1 MG Tablet PO (08:02)
[2020-05-08] MEDS: Finasteride 5 MG Tablet PO (08:03)
[2020-05-08] MEDS: Senna/Docusate Sodium 1 Tablet 2 TABLET PO ×2 (08:03→21:27)
[2020-05-08] MEDS: Modafinil 200 MG Tablet PO (09:44)
[2020-05-08] MEDS: Furosemide 20 MG/2 ML VIAL IV (12:54)
[2020-05-08] MEDS: cycloBENZAPRine HCl 10 MG Tablet PO (12:56)
--- NOTE | 2020-05-08 16:00 | NURSING ---
Tolerated blood transfusions well and no adverse reactions noted.
[2020-05-08] MEDS: 0.9% Saline Lock 10 ML Syringe IV (19:56)
[2020-05-08] MEDS: MELATONIN 3 MG TABLET 6 MG PO (21:28)
[2020-05-08] MEDS: Tamsulosin HCl 0.4 MG Capsule PO (21:28)
[2020-05-09 05:22] VITALS: BP 112/63; PULSE 86
[2020-05-09] MEDS: Propranolol 10 MG Tablet 30 MG PO ×3 (05:23→20:12)
[2020-05-09] MEDS: Thiamine Hydrochloride 100 MG Tablet PO ×3 (05:23→22:12)
[2020-05-09] MEDS: AMOXICILLIN 500 MG CAPSULE PO ×3 (05:24→20:11)
[2020-05-09] MEDS: oxyCODONE 5 MG Tablet PO ×2 (05:24→11:39)
[2020-05-09] MEDS: dilTIAZem 30 MG Tablet 90 MG PO ×3 (05:24→20:11)
[2020-05-09 07:29] VITALS: O2SAT 95
[2020-05-09 08:03] VITALS: BP 112/63; PULSE 86; RESP 16; O2SAT 97
[2020-05-09] MEDS: Vitamin B Comp W-C Capsule 1 CAP PO (08:14)
[2020-05-09] MEDS: Folic Acid 1 MG Tablet PO (08:14)
[2020-05-09] MEDS: Multivitamins,Ther W-Minerals Tablet 1 TABLET PO (08:15)
[2020-05-09] MEDS: Magnesium Oxide 400 MG Tablet PO ×2 (08:15→20:12)
[2020-05-09] MEDS: Finasteride 5 MG Tablet PO (08:16)
[2020-05-09] MEDS: Ascorbic Acid 500 MG Tablet PO (08:17)
[2020-05-09] MEDS: Lisinopril 40 MG Tablet PO (08:20)
[2020-05-09] MEDS: Modafinil 200 MG Tablet PO (08:21)
[2020-05-09] MEDS: cycloBENZAPRine HCl 10 MG Tablet PO ×2 (08:22→20:13)
[2020-05-09] MEDS: 0.9% Saline Lock 10 ML Syringe IV (15:51)
[2020-05-09 16:54] LABS: Hematocrit 28.2 % (40-54); Hemoglobin 9.5 g/dL (13.0-16.5)
[2020-05-09 18:58] VITALS: BP 127/75; PULSE 91; RESP 18; TEMP 36.8; O2SAT 99
[2020-05-09] MEDS: MELATONIN 3 MG TABLET 6 MG PO (20:12)
[2020-05-09] MEDS: Tamsulosin HCl 0.4 MG Capsule PO (20:12)
[2020-05-09] MEDS: Senna/Docusate Sodium 1 Tablet 2 TABLET PO (20:13)
[2020-05-09 22:00] VITALS: PULSE 80; RESP 16
[2020-05-10] MEDS: 0.9% Saline Lock 10 ML Syringe IV ×2 (04:45→15:50)
[2020-05-10] MEDS: AMOXICILLIN 500 MG CAPSULE PO ×3 (05:12→21:48)
[2020-05-10] MEDS: dilTIAZem 30 MG Tablet 90 MG PO ×3 (05:12→21:48)
[2020-05-10] MEDS: Propranolol 10 MG Tablet 30 MG PO ×3 (05:12→21:50)
[2020-05-10] MEDS: Thiamine Hydrochloride 100 MG Tablet PO ×3 (05:12→21:52)
--- NOTE | 2020-05-10 05:23 | NURSING ---
Pt questioned nurse during this a.m. medical housekeeper why we are giving pt so many things that will end up in system. Pt c/o of medical housekeeper being trapped inside his body and pt wondered how they were going to get out.
--- NOTE | 2020-05-10 06:08 | NURSING ---
pt yelling out loud that he wants to go home. Pt told that we will inform doctor but pt needs to refrain from yelliing out and disturbing surrounding pts.
[2020-05-10 07:27] VITALS: BP 140/83; PULSE 90; RESP 16; TEMP 37.2; O2SAT 98
[2020-05-10] MEDS: Ascorbic Acid 500 MG Tablet PO (09:31)
[2020-05-10] MEDS: Multivitamins,Ther W-Minerals Tablet 1 TABLET PO (09:31)
[2020-05-10] MEDS: Finasteride 5 MG Tablet PO (09:31)
[2020-05-10] MEDS: Vitamin B Comp W-C Capsule 1 CAP PO (09:32)
[2020-05-10] MEDS: Magnesium Oxide 400 MG Tablet PO ×2 (09:32→21:51)
[2020-05-10] MEDS: Lisinopril 40 MG Tablet PO (09:32)
[2020-05-10] MEDS: cycloBENZAPRine HCl 10 MG Tablet PO ×2 (09:32→21:52)
[2020-05-10] MEDS: Modafinil 200 MG Tablet PO (09:33)
[2020-05-10] MEDS: Senna/Docusate Sodium 1 Tablet 2 TABLET PO ×2 (09:34→21:51)
[2020-05-10] MEDS: Folic Acid 1 MG Tablet PO (09:37)
[2020-05-10] MEDS: oxyCODONE 5 MG Tablet PO ×3 (09:50→22:00)
[2020-05-10] MEDS: Acetaminophen 500 MG Tablet 1000 MG PO (15:50)
[2020-05-10 16:13] VITALS: TEMP 37.4; O2SAT 98
[2020-05-10] MEDS: Tamsulosin HCl 0.4 MG Capsule PO (21:49)
[2020-05-10] MEDS: MELATONIN 3 MG TABLET 6 MG PO (21:50)
[2020-05-10 22:00] VITALS: BP 149/64; PULSE 88; RESP 17; TEMP 37.6; O2SAT 98
[2020-05-11] MEDS: oxyCODONE 5 MG Tablet PO ×4 (06:33→20:37)
[2020-05-11] MEDS: Acetaminophen 500 MG Tablet 1000 MG PO (06:33)
[2020-05-11] MEDS: dilTIAZem 30 MG Tablet 90 MG PO ×3 (06:34→20:30)
[2020-05-11] MEDS: Propranolol 10 MG Tablet 30 MG PO ×3 (06:35→20:30)
[2020-05-11] MEDS: 0.9% Saline Lock 10 ML Syringe IV ×2 (06:35→12:49)
[2020-05-11] MEDS: AMOXICILLIN 500 MG CAPSULE PO ×3 (06:35→20:30)
[2020-05-11] MEDS: Thiamine Hydrochloride 100 MG Tablet PO ×3 (06:35→20:31)
[2020-05-11 06:48] VITALS: BP 123/71; PULSE 90; RESP 16; TEMP 38.5; O2SAT 95
--- NOTE | 2020-05-11 07:04 | RAD_ITS ---
STUDY: X-RAY CHEST REASON FOR EXAM: Male, 69 years old. FEVER TECHNIQUE: Single AP portable view of the chest. COMPARISON: 01/26/2020 FINDINGS: The lungs are clear and expanded. There is no demonstrated pleural abnormality. Normal size heart. Normal mediastinum and bang. Normal visualized pulmonary arteries. Normal visualized aortic arch and descending thoracic aorta. Normal visualized thoracic spine. Normal visualized ribs, clavicles, and shoulders. There is no demonstrated abnormality of the visualized soft tissue structures of the upper abdomen. RAD/Chest 1 View (Portable) IMPRESSION: Normal x-ray examination of the chest. Electronically Signed: Isaiah Strong MD at 7:32 EDT Tel , Service support ,
[2020-05-11 07:42] LABS: Absolute Lymphocyte Count 1.38 X10^3/uL (0.83-4.51); Absolute Neutrophil Count 9.3 X10^3/uL (2.0-7.7); Basophil# 0.06 X10^3/uL; Basophil% 0.5 % (0-1); Eosinophil# 0.31 X10^3/uL; Eosinophils% 2.6 % (0-5); Hematocrit 26.4 % (40-54); Hemoglobin 8.8 g/dL (13.0-16.5); Lymphocyte # 1.38 X10^3/ul (4.0); Lymphocyte % 11.6 % (19-41); Mean Corp Hgb Conc 33.3 g/dL (32-36); Mean Corpuscular Hgb 33.2 pg (27.0-32.0); Mean Corpuscular Volume 99.6 fL (80-94); Mean Platelet Vol. 8.6 fl (6.2-12.0); Monocyte% 6.7 % (0-10); NRBC Flagged by Analyzer 0 % (0-5); Neutrophil # 9.28 X10^3/uL (2.7-7.7); Neutrophil % 77.9 % (47-70); Platelet Count 509 K/mm3 (150-450); RBC Distribution Width CV 13.9 % (11.6-14.6); RBC Distribution Width SD 50.4 fl (35.1-43.9); Red Blood Count 2.65 M/mm3 (4.6-6.2); White Blood Count 11.9 K/mm3 (4.4-11.0)
[2020-05-11 07:57] LABS: Anion Gap 8 (5-15); BUN 23 mg/dL (7-18); BUN/Creat Ratio 25.1 RATIO (10-20); Calcium,Total 9.3 mg/dL (8.5-10.1); Chloride 100 mmol/L (98-107); Creatinine, Serum 0.92 mg/dL (0.70-1.30); EST Glomerular Filtration Rate 87 mL/min (>60); Est Glom Filt Rate - Afr Amer 106 mL/min (>60); Estimated Creatinine Clearance 85.52 ml/min; Glucose 133 mg/dL (74-106); Potassium 4.4 mmol/L (3.5-5.1); Sodium Level 133 mmol/L (136-145)
[2020-05-11] MEDS: Vitamin B Comp W-C Capsule 1 CAP PO (08:38)
[2020-05-11] MEDS: Folic Acid 1 MG Tablet PO (08:38)
[2020-05-11] MEDS: Multivitamins,Ther W-Minerals Tablet 1 TABLET PO (08:38)
[2020-05-11] MEDS: Magnesium Oxide 400 MG Tablet PO ×2 (08:38→20:29)
[2020-05-11] MEDS: Finasteride 5 MG Tablet PO (08:39)
[2020-05-11] MEDS: Polyethylene Glycol 3350 17 GM PACKET PO (08:39)
[2020-05-11] MEDS: Senna/Docusate Sodium 1 Tablet 2 TABLET PO ×2 (08:39→20:29)
[2020-05-11] MEDS: Ascorbic Acid 500 MG Tablet PO (08:40)
[2020-05-11] MEDS: Lisinopril 40 MG Tablet PO (08:41)
[2020-05-11] MEDS: Modafinil 200 MG Tablet PO (08:49)
[2020-05-11] MEDS: cycloBENZAPRine HCl 10 MG Tablet PO ×2 (08:53→20:29)
[2020-05-11 13:00] VITALS: BP 104/54; PULSE 90; RESP 17; TEMP 36.9; O2SAT 96
[2020-05-11 13:01] LABS: Bacteria 0 SEEN /hpf (None Seen); Mucous, Urine 0 SEEN /hpf (<or=2+); Red Blood Cells-Urine 0 SEEN /hpf (0-5); Squamous Epithelial Cells - UA 0 SEEN /hpf (0-5)
[2020-05-11 13:04] LABS: Color, Urine Yellow (Yellow); Glucose, Dipstick Normal (Normal); Ketone-Dipstick 5 mg/dl (Negative); Leukocyte Esterase-Dipstick 100 /ul (Negative); Nitrite-Dipstick Negative (Negative); Occult Blood-Urine 50 /ul (Negative); Protein-Dipstick 30 mg/dl (Negative); Specific Gravity, Urine 1.015 (1.002-1.030); Urine Bilirubin Dipstick Negative (Negative); Urine Clarity Clear (Clear); Urine Urobilinogen Normal (Normal)
[2020-05-11 13:10] LABS: White Blood Cells 0-5 SEEN /hpf (0-5)
[2020-05-11 19:43] VITALS: BP 120/74; PULSE 91; RESP 16; TEMP 37.1; O2SAT 98
[2020-05-11] MEDS: MELATONIN 3 MG TABLET 6 MG PO (20:29)
[2020-05-11] MEDS: Tamsulosin HCl 0.4 MG Capsule PO (20:29)
[2020-05-12] MEDS: oxyCODONE 5 MG Tablet PO ×3 (04:51→21:40)
[2020-05-12] MEDS: dilTIAZem 30 MG Tablet 90 MG PO ×3 (05:34→21:42)
[2020-05-12] MEDS: Propranolol 10 MG Tablet 30 MG PO (05:34)
[2020-05-12] MEDS: AMOXICILLIN 500 MG CAPSULE PO ×3 (05:34→21:41)
[2020-05-12] MEDS: Thiamine Hydrochloride 100 MG Tablet PO ×3 (05:34→21:41)
[2020-05-12] MEDS: 0.9% Saline Lock 10 ML Syringe IV ×2 (05:45→14:05)
[2020-05-12] MEDS: Magnesium Oxide 400 MG Tablet PO ×2 (08:32→21:43)
[2020-05-12] MEDS: Lisinopril 40 MG Tablet PO (08:32)
[2020-05-12] MEDS: Multivitamins,Ther W-Minerals Tablet 1 TABLET PO (08:33)
[2020-05-12] MEDS: Modafinil 200 MG Tablet PO (08:33)
[2020-05-12] MEDS: Finasteride 5 MG Tablet PO (08:33)
[2020-05-12] MEDS: Ascorbic Acid 500 MG Tablet PO (08:33)
[2020-05-12] MEDS: Vitamin B Comp W-C Capsule 1 CAP PO (08:33)
[2020-05-12] MEDS: Folic Acid 1 MG Tablet PO (08:33)
[2020-05-12] MEDS: Polyethylene Glycol 3350 17 GM PACKET PO (08:34)
[2020-05-12] MEDS: Senna/Docusate Sodium 1 Tablet 2 TABLET PO ×2 (08:34→21:42)
[2020-05-12] MEDS: cycloBENZAPRine HCl 10 MG Tablet PO (08:46)
[2020-05-12 10:00] VITALS: BP 113/68; PULSE 89; RESP 18; TEMP 37.3; O2SAT 95
--- NOTE | 2020-05-12 10:06 | PCM.RU.PYE ---
Admission Information Primary Diagnosis:: SAH, IVH, Alcohol abuse. Status Changes from Prescreening?: No changes Identified Actual Problem List:: Bleeding, Aspiration, Falls, Mobility Impaired, Self Care Deficit Potential Problem List:: DVT, Bleeding, Infection, UTI, Aspiration, Falls, Skin Integrity, Depression Risk of Complications DVT: LMWH, TANYA Hose, Sequential Compression Device Bleeding: Monitor Lab Values, Nursing to Teach Precautions for anti-coagulation therapy., Wound, if applicable, to be assessed every shift., Stroke patients assessed for lethargy or change in status. Infection: Clinical Staff to Monitor for S/S of infection:, S/S of infection include fever, redness, warmth, etc. Urinary Tract Infection: Monitor for frequency, burning, discomfort, or incontinence., Nursing will obtain urine sample for urinalysis and C&S when ordered. Aspiration: Clinical staff will monitor for coughing, drooling, congestion., Speech will evaluate swallowing and dsyphasia., Nursing will monitor patient swallowing during meals. Falls: Patient will be evaluated for Fall Precautions, Patient will be placed on Fall Precautions as indicated per protocol. Skin Breakdown: Nursing will assess skin daily using assessment tool., Nursing will place on Skin Breakdown Precautions as indicated. Pain: Clinical staff will assess patient's pain level per protocol., Medications will be given, if needed, and the pain level reassessed., Other methods: Massage, distraction, decrease stimulus, etc. used PRN. Plan of Care Patient requires physician specializing in physical medicine and rehab oversight to provide close medical supervision of rehab issues including: Pain Management, Sleep Problems, Bowel and Bladder, Medical and co-morbidity Management, DVT prophylaxis, Rehabilitation Leadership, Coordination of treatment team Patient needs Physical Therapy: For a minimum of 1 hour, At least 5 out of 7 days Patient needs Physical Therapy to improve:: Mobility, Mobility, Mobility, Strengthening, Transfers, Stretching, ROM, Endurance, Stairs, Gait, Balance Patient needs Occupational Therapy: For a minimum of 1 hour, At least 5 out of 7 days Patient needs Occupational Therapy to improve ADL's incl.: Eating, Grooming, Bathing, Dressing, Toileting, Toilet transfers, Community Reintegration, Higher functioning activities, Household tasks, Adaptive Equipment, Splinting, Other activities as determined Patient requires speech therapy: For a minimum of 1 hour, At least 5 out of 7 days Patient requires speech therapy for: Swallowing, Cognition, Language Skills, Compensatory Strategies Patient requires 24/ Rehabilitation Nursing for: Pain Issues, Identifying and preventing risk factors, Monitoring and reporting current medical conditions, Assisting with ambulation, transfer, and all ADL's, Teaching patients about disease process and medications, Family teaching, Providing safe environment, Bowel and Bladder Issues, Skin integrity, Medication Management Patient needs Manufacturing Engineering Professor/ Case Management for: Discharge Planning, Arranging Home Equipment or Services, Family Interventions Patient needs Dietary and Nutrition Services for: Adequate Nutrition, Nutritional Supplements, Nutritional Education Goals Patient will complete transfers from bed to chair at: - - Min A. Patient will ambulate: 100 feet, with LRD, - - SBA. Patient will complete upper body dressing at: - - Min A. Patient will complete lower body dressing at: - - Min A. Patient will complete toileting at: MOD I level of assist. Patient will perform bathing at: MOD I level of assist. Patient will complete grooming at: - - Min A. Patient will achieve: - - 6 steps CGA. Discharge Planning Pt Prognosis for Sig. Practical Improv. w/in Reasonable Time: Good Anticipated D/C Destination: Home w/ family or friends Was Preadmission Assessment Accurate?: Yes
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
[2020-05-12] MEDS: predniSONE 20 MG Tablet 40 MG PO (11:13)
[2020-05-12] MEDS: Gabapentin 100 MG Capsule 200 MG PO ×2 (11:13→21:41)
[2020-05-12 11:51] VITALS: BP 111/63; BP 163/119; BP 82/60; PULSE 103; PULSE 92; PULSE 96
[2020-05-12 11:53] VITALS: RESP 20; TEMP 37.1; O2SAT 94
--- NOTE | 2020-05-12 13:01 | CASEMGMT ---
Social Work IDT met with patient and for Team meeting. Discussed patient's progress in therapy. Pt is max assist to get to EOB, [place] to stand and to transfer, pt unable to consistently feed himself due to pain in shoulders, and grasp is weak. Pt is on a puree/nectar diet, 1:1 supervision, small bites/sips and working on strengthening exercises. ST working on cognition, attention, a memory, as pt is slow to process. Physician ordered meds for nerve pain, cath to be removed and IV fluids started on this date. Explained Medicare benefit with 19 approved days - EDC 05/26. interested in alternative options after DC. Will reteam next week and discuss based on progress. Will continue to follow. Arianna Islas MSW SHOT GRINDER OPERATOR
[2020-05-12 14:04] LABS: Vitamin B12 989 pg/mL (211-911); Vitamin D,25 Hydroxy 29.9 ng/mL
[2020-05-12] MEDS: Acetaminophen 325 MG Tablet 650 MG PO ×2 (14:04→21:42)
[2020-05-12] MEDS: Propranolol 10 MG Tablet 20 MG PO ×2 (14:04→21:40)
[2020-05-12] MEDS: 0.9% Normal Saline 1,000 ML 125 ML IV ×2 (14:05→22:20)
[2020-05-12 14:41] LABS: Ferritin 2287 ng/mL (26-388); Iron 20 ug/dL (65-175); Iron Binding Capacity,Total 143 ug/dL (250-450); Thyroid Stim Hormone (TSH) 2.21 uIU/mL (0.358-3.74)
[2020-05-12] MEDS: Gabapentin 100 MG Capsule PO (16:43)
[2020-05-12 19:49] VITALS: BP 99/62; PULSE 82; RESP 18; TEMP 36.6; O2SAT 94
[2020-05-12 21:40] VITALS: BP 141/80; PULSE 88
[2020-05-12] MEDS: Tamsulosin HCl 0.4 MG Capsule PO (21:43)
[2020-05-13] MEDS: Propranolol 10 MG Tablet 20 MG PO ×3 (06:48→21:23)
[2020-05-13] MEDS: dilTIAZem 30 MG Tablet 90 MG PO ×3 (06:48→21:23)
[2020-05-13] MEDS: Thiamine Hydrochloride 100 MG Tablet PO ×3 (06:48→21:22)
[2020-05-13] MEDS: Acetaminophen 325 MG Tablet 650 MG PO ×3 (06:48→21:22)
[2020-05-13] MEDS: 0.9% Saline Lock 10 ML Syringe IV ×2 (06:58→21:24)
[2020-05-13 07:00] VITALS: BP 126/81; BP 151/72; BP 96/62; PULSE 80; PULSE 89; PULSE 98
[2020-05-13] MEDS: Gabapentin 100 MG Capsule PO ×2 (07:59→18:03)
[2020-05-13] MEDS: Multivitamins,Ther W-Minerals Tablet 1 TABLET PO (07:59)
[2020-05-13] MEDS: Folic Acid 1 MG Tablet PO (07:59)
[2020-05-13] MEDS: Vitamin B Comp W-C Capsule 1 CAP PO (07:59)
[2020-05-13] MEDS: 0.9% Normal Saline 1,000 ML 125 ML IV (08:27)
[2020-05-13 09:07] VITALS: BP 151/72; PULSE 80; RESP 18; TEMP 36.5; O2SAT 97
[2020-05-13] MEDS: Magnesium Oxide 400 MG Tablet PO ×2 (10:01→21:23)
[2020-05-13] MEDS: Polyethylene Glycol 3350 17 GM PACKET PO (10:01)
[2020-05-13] MEDS: Finasteride 5 MG Tablet PO (10:01)
[2020-05-13] MEDS: Senna/Docusate Sodium 1 Tablet 2 TABLET PO (10:02)
[2020-05-13] MEDS: Ascorbic Acid 500 MG Tablet PO (10:02)
[2020-05-13] MEDS: Lisinopril 40 MG Tablet PO (10:03)
[2020-05-13] MEDS: Sertraline 50 MG Tablet PO (10:03)
[2020-05-13] MEDS: Modafinil 200 MG Tablet PO (10:14)
--- NOTE | 2020-05-13 10:45 | PCM.PN.BLA ---
Progress Note Afebrile Remains orthostatic today. Blood pressure lying was 151/72, sitting was 126/81 and standing the blood pressure was 96/62. A heart rate went from 80 lying down to 98 sitting up. Maintaining appropriate oxygen saturation on RA Oral intake is fair to good The Rodney catheter was removed yesterday. He has a hx of BPH and is on Proscar 5 mg daily and Flomax 0.4 mg daily. Post void residuals have been significantly increased and he was straight cath last night and had to be straight cath again this morning for a 970 urine residual. The Rodney catheter has been reinserted. Discussed with nursing - no problems that need addressed Reviewed the PT/OT/ST notes Medication list reviewed. Labs from 05/12/2020 was reviewed. Serum iron is low at 20 and the TIBC is low at 143. The iron saturation is 14 and less than 20% is considered diagnostic of iron deficiency. Ferritin is 2287. Serum and urine protein electrophoresis are pending. HLA-B27 is pending. B12 and folate are within normal limits and the TSH is also normal. Vitamin D level is low at 29.9 which is consistent with vitamin D insufficiency. He is currently taking 3000 international units daily of vitamin D. Calcium is within normal limits. Microbiology: Urine and blood cultures have no growth. He tells me that the pain in the shoulders and neck is better today. He slept well last night. He was able to feed himself this morning. The pain in the R index finger MCP joint is better and the swelling is down. He was able to lift his arms up to shoulder height without grimacing today. He is progressing with PT. Impressions 1. Status post subarachnoid hemorrhage, intraventricular hemorrhage and intracerebral hemorrhage following a fall while standing to the floor......suspect he had a syncopal episode 2. Diffuse encephalopathy primarily on the right side of the brain 3. Dehydration 4. Orthostatic hypotension 5. Obstructive sleep apnea 6. Depression/PTSD 7. Longstanding alcoholism-went through delirium tremens while at [facility] 8. Diffuse bone loss with lytic process versus severe osteopenia noted in the right humeral head 9. Neuropathic pain bilateral upper extremities Continue Neurontin Decrease the dose of propanolol Await the results of the serum and urine protein electrophoresis and HLA-B27 antibody Continue sertraline 50 mg p.o. daily Continue hydration Check iron studies STROKE Vital Signs/Narrative: Vital Signs Temp Pulse Pulse Pulse Pulse Resp BP 05/13/20 09:07 97.7 F L 80 18 151/72 H 05/13/20 07:00 80 89 98 BP BP BP Pulse Ox 05/13/20 09:07 97 05/13/20 07:00 151/72 H 126/81 H 96/62 Inpatient E&M: 54142 Subs Hosp L2
--- NOTE | 2020-05-13 11:58 | CASEMGMT ---
PHQ 9 assessment completed with pt score of 2 indicating minimal depression. SW will monitor pt for mood concerns and address if mood worsens. MARIZOL Caputo
[2020-05-13 19:20] VITALS: BP 122/70; PULSE 96; RESP 18; TEMP 36.7; O2SAT 95
[2020-05-13] MEDS: Gabapentin 100 MG Capsule 200 MG PO (21:22)
[2020-05-13] MEDS: Tamsulosin HCl 0.4 MG Capsule PO (21:23)
[2020-05-14] VITALS (7 sets, daily range): BP systolic 69–146; BP diastolic 46–74; PULSE 73–110; RESP 16–17; TEMP 36.9–37; O2SAT 97–99
[2020-05-14 05:59] LABS: Absolute Lymphocyte Count 1.62 X10^3/uL (0.83-4.51); Absolute Neutrophil Count 6.1 X10^3/uL (2.0-7.7); Basophil# 0.03 X10^3/uL; Basophil% 0.3 % (0-1); Eosinophil# 0.23 X10^3/uL; Eosinophils% 2.7 % (0-5); Hematocrit 24.5 % (40-54); Lymphocyte # 1.62 X10^3/ul (4.0); Lymphocyte % 18.8 % (19-41); Mean Corp Hgb Conc 32.7 g/dL (32-36); Mean Corpuscular Hgb 32.7 pg (27.0-32.0); Mean Platelet Vol. 8.8 fl (6.2-12.0); Monocyte# 0.62 X10^3/uL; Monocyte% 7.2 % (0-10); NRBC Flagged by Analyzer 0 % (0-5); Neutrophil # 6.07 X10^3/uL (2.7-7.7); Neutrophil % 70.7 % (47-70); Platelet Count 437 K/mm3 (150-450); RBC Distribution Width CV 13.6 % (11.6-14.6); RBC Distribution Width SD 49.5 fl (35.1-43.9); Red Blood Count 2.45 M/mm3 (4.6-6.2); White Blood Count 8.6 K/mm3 (4.4-11.0)
[2020-05-14 06:37] LABS: ALB/GLOB Ratio 0.4 RATIO (0.9-2.4); AST(SGOT) 89 U/L (15-37); Alanine Aminotransfer ALT/SGPT 107 U/L (16-61); Alkaline Phosphatase 267 U/L (45-117); Anion Gap 7 (5-15); BUN 27 mg/dL (7-18); BUN/Creat Ratio 31.4 RATIO (10-20); Calcium,Total 9.2 mg/dL (8.5-10.1); Chloride 102 mmol/L (98-107); Creatinine, Serum 0.86 mg/dL (0.70-1.30); EST Glomerular Filtration Rate 94 mL/min (>60); Est Glom Filt Rate - Afr Amer 114 mL/min (>60); Estimated Creatinine Clearance 91.49 ml/min; Globulin 4.6 g/dL (2.2-4.2); Glucose 86 mg/dL (74-106); Phosphorus 3.9 mg/dL (2.5-4.9); Potassium 4.6 mmol/L (3.5-5.1); Protein, Total 6.6 g/dL (6.4-8.2); Sodium Level 135 mmol/L (136-145)
[2020-05-14] MEDS: Acetaminophen 325 MG Tablet 650 MG PO ×3 (06:41→21:01)
[2020-05-14] MEDS: Thiamine Hydrochloride 100 MG Tablet PO (06:41)
[2020-05-14] MEDS: Propranolol 10 MG Tablet 20 MG PO ×2 (06:44→07:50)
[2020-05-14] MEDS: dilTIAZem 30 MG Tablet 90 MG PO ×3 (06:44→20:53)
[2020-05-14] MEDS: Polyethylene Glycol 3350 17 GM PACKET PO (07:42)
[2020-05-14] MEDS: Sertraline 50 MG Tablet PO (07:49)
[2020-05-14] MEDS: Ascorbic Acid 500 MG Tablet PO (07:49)
[2020-05-14] MEDS: Vitamin B Comp W-C Capsule 1 CAP PO (07:49)
[2020-05-14] MEDS: Lisinopril 40 MG Tablet PO (07:50)
[2020-05-14] MEDS: Folic Acid 1 MG Tablet PO (07:50)
[2020-05-14] MEDS: Multivitamins,Ther W-Minerals Tablet 1 TABLET PO (07:51)
[2020-05-14] MEDS: Gabapentin 100 MG Capsule PO ×3 (07:51→20:59)
[2020-05-14] MEDS: Magnesium Oxide 400 MG Tablet PO ×2 (07:51→20:54)
[2020-05-14] MEDS: Modafinil 200 MG Tablet PO (07:52)
[2020-05-14] MEDS: Finasteride 5 MG Tablet PO (07:52)
[2020-05-14 09:59] LABS: Urine Sodium 51 mmol/L (Not Establ.)
[2020-05-14] MEDS: oxyCODONE 5 MG Tablet PO (10:56)
[2020-05-14] MEDS: Atenolol 25 MG Tablet PO (11:02)
[2020-05-14] MEDS: Sodium Ferric Gluconat 125 MG in 0.9% Normal Saline 100 ML 110 MG IV (11:17)
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
--- NOTE | 2020-05-14 12:21 | NURSING ---
when iv was assessed at this time, Iron noted to be saturating the dressing of IV. Medial portion of AC was noted to be swollen. IV iron stopped and Pharmacy notified of situation. 7.7 mls of Iron remained in bag. No interventions necessary for infiltration. Dr. Dionne saravia.
[2020-05-14] MEDS: Midodrine HCl 5 MG Tablet 10 MG PO ×2 (13:11→20:58)
--- NOTE | 2020-05-14 13:53 | NURSING ---
pt working with therapy around 1330 and pt stated to therapy that he had ringing in his ears. pt assisted to sit by PT and nursing staff obtains vital signs. while sitting pt's BP 69/46 and pulse of 79. pt then assisted back to room and into bed by staff. vital signs obtained while in semi-fowlers position. BP 94/59 and pulse of 76. pt complains of a headache of 8/10 but was medicated with tylenol prior to incident. will continue to monitor pt. PA attached and call light within reach.
[2020-05-14] MEDS: 0.9% Normal Saline 1,000 ML 100 ML IV (17:07)
[2020-05-14] MEDS: 0.9% Saline Lock 10 ML Syringe IV (17:15)
[2020-05-14 17:43] LABS: International Normalized Ratio 1.2; Prothrombin Time (Protime)PT. 15.1 SECONDS (11.7-14.9)
[2020-05-14] MEDS: Tamsulosin HCl 0.4 MG Capsule PO (20:53)
[2020-05-14] MEDS: Gabapentin 100 MG Capsule 200 MG PO (20:59)
[2020-05-15] MEDS: 0.9% Normal Saline 1,000 ML 100 ML IV ×2 (03:34→17:29)
[2020-05-15] MEDS: dilTIAZem 30 MG Tablet 90 MG PO (06:16)
[2020-05-15] MEDS: Acetaminophen 325 MG Tablet 650 MG PO ×3 (06:16→22:06)
[2020-05-15] MEDS: Midodrine HCl 5 MG Tablet 10 MG PO ×3 (06:16→22:11)
[2020-05-15 06:25] VITALS: BP 120/66; BP 139/76; BP 86/51; PULSE 105; PULSE 82; PULSE 97
[2020-05-15] MEDS: oxyCODONE 5 MG Tablet PO (06:27)
[2020-05-15 08:19] LABS: PTHIN 14.2 pg/mL (18.4-80.1)
[2020-05-15] MEDS: Vitamin B Comp W-C Capsule 1 CAP PO (08:24)
[2020-05-15] MEDS: Polyethylene Glycol 3350 17 GM PACKET PO (08:24)
[2020-05-15] MEDS: Folic Acid 1 MG Tablet PO (08:24)
[2020-05-15] MEDS: Finasteride 5 MG Tablet PO (08:24)
[2020-05-15] MEDS: Multivitamins,Ther W-Minerals Tablet 1 TABLET PO (08:24)
[2020-05-15] MEDS: Magnesium Oxide 400 MG Tablet PO ×2 (08:24→22:09)
[2020-05-15] MEDS: Thiamine Hydrochloride 100 MG Tablet PO (08:25)
[2020-05-15] MEDS: Atenolol 25 MG Tablet PO (08:25)
[2020-05-15] MEDS: Senna/Docusate Sodium 1 Tablet 2 TABLET PO ×2 (08:25→22:07)
[2020-05-15] MEDS: Sertraline 50 MG Tablet PO (08:26)
[2020-05-15] MEDS: Lisinopril 20 MG Tablet PO (08:26)
[2020-05-15] MEDS: Ascorbic Acid 500 MG Tablet PO (08:26)
[2020-05-15] MEDS: Modafinil 200 MG Tablet PO (08:29)
[2020-05-15 08:42] VITALS: BP 136/75; PULSE 85; RESP 16; TEMP 37.1; O2SAT 96
--- NOTE | 2020-05-15 09:44 | PN_ITS ---
Progress Note He is still quite orthostatic today on orthostatic vital signs done prior to the a.m. dose of midodrine. Orthostatic blood pressure last evening at 8:45 PM was less positive. The pulse rate went from 86-100 when going from lying to standing and the blood pressure was 131/74 lying down and decreased to 100/57 standing up. IV fluids were restarted on 05/14/2020 at 100 cc/h. Despite IV fluids over the past few days the fluid balance on 05/14/2020 was - 1000. He is maintaining appropriate oxygen saturation on room air. Medication list was reviewed. All lab was personally reviewed. PTH is 14.2 which is low. The a.m. cortisol was 11.4 which is normal. Urine and serum protein electrophoresis are pending, HLA-B27 is pending. Calcium on 05/14/2020 was within normal limits at 9.2 but when corrected for hypoalbuminemia the calcium is 10.8 which is high. The calcium became high after he was started on 3 GM of Vit D3 this admission He is more alert today and no longer staring. He tells me that he is feeling a little better each day. He has been making conversation today and making good eye contact. Speech is more fluid. He is able to lift the R shoulder much better and OT and PT feel he is making good progress. Pain is under much better control and he is no longer grimacing. Lungs are CTA HRRR Urine in the berumen bag is less concentrated today.......will continue the IV fluids Abdomen-soft, nontender No calf tenderness, no peripheral edema Denies lightheadedness when seated today Impressions 1. Severe orthostatic hypotension-suspect autonomic neuropathy 2. Iron deficiency anemia 3. Syncopal episodes/falls for the past few years-suspect secondary to orthostatic hypotension 4. Hypercalcemia with vitamin D insufficiency 5. Severe osteopenia on plain x-ray of the back and shoulders-etiology? Mottled appearance to the right humeral head on x-ray of the right shoulder. Cannot rule out multiple myeloma at this point in time. Protein electrophoresis is pending. 6. Depression and PTSD 7. Longstanding alcoholism 8. Diffuse encephalopathy of the right cerebrum on EEG-secondary to recent traumatic brain injury? acute on chronic? 9. BPH intolerant of medication secondary to severe orthostatic hypotension. Will likely need surgical intervention going forward. Cortrosyn stim test today BMP in the AM with a albumin and CBC Continue PT/OT/ST Iron sucrose 200 mg IV daily x3 doses and then start ferrous sulfate 325 mg daily plus vitamin C 500 mg daily. Repeat the orthostatics at 4 PM today Decrease the dose of the Vitamin D to 500 IU daily Discontinue diltiazem 90 mg p.o. 3 times daily and start Cardizem CD 180 mg p.o. nightly. Continue atenolol 25 mg daily for treatment of orthostatic hypotension Continue midodrine 10 mg 3 times daily Will need follow-up with urology post discharge and since he does not tolerate higher dose Flomax due to orthostatic hypotension will likely need surgical intervention. Will discharge with a Berumen catheter and schedule an appointment for him with Dr. Oliver for the week after DC. We had another talk today about the importance of psychotherapy and tx for depression and PTSD at [place]........if he is going to be able to stop drinking. Some of his alcoholic brothers feel that they can have a few drinks and they go right back to drinking heavily. I told him he will not be able to have any ETOH if he is going to quit drinking. His family is very supportive. STROKE Vital Signs/Narrative: Vital Signs Temp Pulse Pulse Pulse Pulse Resp BP 05/15/20 08:42 98.7 F 85 16 136/75 H 05/15/20 06:25 82 97 105 H BP BP BP Pulse Ox 05/15/20 08:42 96 05/15/20 06:25 139/76 H 120/66 86/51 L Inpatient E&M: [id number] Subs Hosp L2
[2020-05-15] MEDS: Sodium Ferric Gluconat 250 MG in 0.9% Normal Saline 250 ML 135 MG IV (09:51)
[2020-05-15 12:12] LABS: PSA,Total - Annual Screen 1.05 ng/mL (0.00-4.00)
[2020-05-15] MEDS: Cosyntropin 0.25 MG in 0.9% Normal Saline (Pres. free 1 ML 30 MG IV (12:28)
[2020-05-15] MEDS: Gabapentin 100 MG Capsule PO (16:25)
[2020-05-15 17:06] VITALS: BP 105/66; BP 119/76; BP 155/85; PULSE 101; PULSE 111; PULSE 93
[2020-05-15 22:00] VITALS: BP 157/97; PULSE 98; RESP 16; TEMP 36.9; O2SAT 98
[2020-05-15] MEDS: Gabapentin 100 MG Capsule 200 MG PO (22:08)
[2020-05-15] MEDS: Tamsulosin HCl 0.4 MG Capsule PO (22:09)
[2020-05-15] MEDS: dilTIAZem CD 180 MG Capsule PO (22:20)
[2020-05-16] MEDS: 0.9% Normal Saline 1,000 ML 100 ML IV ×2 (02:37→13:53)
[2020-05-16] MEDS: Acetaminophen 325 MG Tablet 650 MG PO ×3 (05:06→21:30)
[2020-05-16] MEDS: Midodrine HCl 5 MG Tablet 10 MG PO ×3 (05:06→21:30)
[2020-05-16 07:10] VITALS: BP 153/87; PULSE 94; RESP 14; TEMP 36.8; O2SAT 96
[2020-05-16 08:16] LABS: Hematocrit 34.1 % (40-54); Mean Corp Hgb Conc 32.3 g/dL (32-36); Mean Corpuscular Hgb 33.4 pg (27.0-32.0); Mean Corpuscular Volume 103.6 fL (80-94); Mean Platelet Vol. 9.2 fl (6.2-12.0); Platelet Count 231 K/mm3 (150-450); RBC Distribution Width CV 14.3 % (11.6-14.6); RBC Distribution Width SD 54.5 fl (35.1-43.9); Red Blood Count 3.29 M/mm3 (4.6-6.2); White Blood Count 6.3 K/mm3 (4.4-11.0)
[2020-05-16 08:33] LABS: Albumin, Serum 2.9 g/dL (3.2-5.0); Anion Gap 3 (5-15); BUN 28 mg/dL (7-18); BUN/Creat Ratio 34.3 RATIO (10-20); Calcium,Total 8.8 mg/dL (8.5-10.1); Chloride 100 mmol/L (98-107); Creatinine, Serum 0.82 mg/dL (0.70-1.30); EST Glomerular Filtration Rate 100 mL/min (>60); Est Glom Filt Rate - Afr Amer 121 mL/min (>60); Estimated Creatinine Clearance 95.95 ml/min; Glucose 89 mg/dL (74-106); Potassium 4.7 mmol/L (3.5-5.1); Sodium Level 138 mmol/L (136-145)
[2020-05-16] MEDS: Vitamin B Comp W-C Capsule 1 CAP PO (09:03)
[2020-05-16] MEDS: Folic Acid 1 MG Tablet PO (09:04)
[2020-05-16] MEDS: Gabapentin 100 MG Capsule PO ×2 (09:05→16:40)
[2020-05-16] MEDS: Multivitamins,Ther W-Minerals Tablet 1 TABLET PO (09:05)
[2020-05-16] MEDS: Atenolol 25 MG Tablet PO (09:06)
[2020-05-16] MEDS: Thiamine Hydrochloride 100 MG Tablet PO (09:06)
[2020-05-16] MEDS: Senna/Docusate Sodium 1 Tablet 2 TABLET PO (09:06)
[2020-05-16] MEDS: Magnesium Oxide 400 MG Tablet PO ×2 (09:06→21:29)
[2020-05-16] MEDS: Sertraline 50 MG Tablet PO (09:06)
[2020-05-16] MEDS: Polyethylene Glycol 3350 17 GM PACKET PO (09:07)
[2020-05-16] MEDS: Finasteride 5 MG Tablet PO (09:08)
[2020-05-16] MEDS: Ascorbic Acid 500 MG Tablet PO (09:09)
[2020-05-16] MEDS: Lisinopril 20 MG Tablet PO (09:11)
[2020-05-16] MEDS: Sodium Ferric Gluconat 250 MG in 0.9% Normal Saline 250 ML 135 MG IV (10:05)
[2020-05-16] MEDS: Modafinil 200 MG Tablet PO (10:05)
[2020-05-16] MEDS: oxyCODONE 5 MG Tablet PO (12:47)
[2020-05-16 19:53] VITALS: BP 138/74; PULSE 77; RESP 16; TEMP 36.8; O2SAT 96
[2020-05-16 21:18] VITALS: BP 117/68; BP 139/92; BP 151/98; PULSE 102; PULSE 112; PULSE 88
[2020-05-16] MEDS: Tamsulosin HCl 0.4 MG Capsule PO (21:29)
[2020-05-16] MEDS: dilTIAZem CD 180 MG Capsule PO (21:29)
[2020-05-16] MEDS: Gabapentin 100 MG Capsule 200 MG PO (21:30)
[2020-05-16 22:59] VITALS: BP 103/63; BP 142/81; BP 153/87; PULSE 110; PULSE 87; PULSE 96
[2020-05-17] MEDS: 0.9% Normal Saline 1,000 ML 100 ML IV (01:45)
[2020-05-17] MEDS: Acetaminophen 325 MG Tablet 650 MG PO ×3 (05:19→22:41)
[2020-05-17] MEDS: Midodrine HCl 5 MG Tablet 10 MG PO ×3 (05:20→22:41)
[2020-05-17 07:00] VITALS: BP 161/88; PULSE 89; RESP 18; TEMP 37.2; O2SAT 97
[2020-05-17] MEDS: Multivitamins,Ther W-Minerals Tablet 1 TABLET PO (09:19)
[2020-05-17] MEDS: Senna/Docusate Sodium 1 Tablet 2 TABLET PO (09:19)
[2020-05-17] MEDS: Vitamin B Comp W-C Capsule 1 CAP PO (09:19)
[2020-05-17] MEDS: Sertraline 50 MG Tablet PO (09:19)
[2020-05-17] MEDS: Ascorbic Acid 500 MG Tablet PO (09:20)
[2020-05-17] MEDS: Magnesium Oxide 400 MG Tablet PO ×2 (09:20→22:41)
[2020-05-17] MEDS: Finasteride 5 MG Tablet PO (09:20)
[2020-05-17] MEDS: Gabapentin 100 MG Capsule PO ×2 (09:20→16:22)
[2020-05-17] MEDS: Atenolol 25 MG Tablet PO (09:20)
[2020-05-17] MEDS: Thiamine Hydrochloride 100 MG Tablet PO (09:20)
[2020-05-17] MEDS: Polyethylene Glycol 3350 17 GM PACKET PO (09:21)
[2020-05-17] MEDS: Folic Acid 1 MG Tablet PO (09:21)
[2020-05-17] MEDS: Modafinil 200 MG Tablet PO (09:30)
[2020-05-17] MEDS: Sodium Ferric Gluconat 250 MG in 0.9% Normal Saline 250 ML 135 MG IV (10:58)
[2020-05-17] MEDS: Lisinopril 10 MG Tablet PO (14:37)
[2020-05-17] MEDS: oxyCODONE 5 MG Tablet PO (16:22)
[2020-05-17 20:41] VITALS: BP 114/68; PULSE 87; RESP 16; TEMP 36.4; O2SAT 96
[2020-05-17] MEDS: dilTIAZem CD 180 MG Capsule PO (22:40)
[2020-05-17] MEDS: Tamsulosin HCl 0.4 MG Capsule PO (22:41)
[2020-05-17] MEDS: Gabapentin 100 MG Capsule 200 MG PO (22:41)
[2020-05-18] MEDS: Midodrine HCl 5 MG Tablet 10 MG PO ×3 (05:28→19:54)
[2020-05-18] MEDS: Acetaminophen 325 MG Tablet 650 MG PO ×3 (05:28→21:33)
[2020-05-18] MEDS: Atenolol 25 MG Tablet PO (07:39)
[2020-05-18] MEDS: Sertraline 50 MG Tablet PO (07:39)
[2020-05-18] MEDS: Multivitamins,Ther W-Minerals Tablet 1 TABLET PO (07:39)
[2020-05-18] MEDS: Vitamin B Comp W-C Capsule 1 CAP PO (07:39)
[2020-05-18] MEDS: Ascorbic Acid 500 MG Tablet PO (07:39)
[2020-05-18] MEDS: Folic Acid 1 MG Tablet PO (07:39)
[2020-05-18] MEDS: Magnesium Oxide 400 MG Tablet PO ×2 (07:39→19:51)
[2020-05-18] MEDS: Thiamine Hydrochloride 100 MG Tablet PO (07:39)
[2020-05-18] MEDS: Finasteride 5 MG Tablet PO (07:40)
--- NOTE | 2020-05-18 08:00 | CT_ITS ---
STUDY: CT BRAIN WITHOUT CONTRAST REASON FOR EXAM: Male, 69 years old. PRIOR SAH AND ICH RADIATION DOSAGE (If Supplied By Facility): CTDIvol = ( 60.81 ) mGy, DLP = ( 1112.69 ) mGycm TECHNIQUE: Transaxial CT imaging of the brain was performed without administration of intravenous contrast material. Individualized dose optimization techniques were used for this CT. COMPARISON: Comparison is made with prior examination in 04/22/2020. FINDINGS: Normal soft tissue structures. Normal calvarium. There is disproportionate enlargement of the lateral and third ventricles, as compared to the extra-axial spaces. The findings suggest normal pressure hydrocephalus (NPH). There are areas of decreased attenuation within the white matter tracts of the supratentorial brain, consistent with microvascular disease changes. Normal basal ganglia and thalami. Normal brainstem. Normal cerebellum. There is no intracranial hemorrhage. The previously seen left intra-articular hemorrhage has resolved. There are no findings of an acute ischemic infarction. Normal visualized paranasal sinuses. CT/Brain/Head without Contrast IMPRESSION: Findings in keeping with normal pressure hydrocephalus. The previously seen intraventricular hemorrhage and subarachnoid hemorrhage in the region of the left frontal lobe have cleared. Electronically Signed: Collins Carlson, at 9:24 EDT , Service support ,
[2020-05-18 08:56] VITALS: BP 147/79; PULSE 87; RESP 16; TEMP 37.2; O2SAT 96
--- NOTE | 2020-05-18 10:16 | CASEMGMT ---
Social Work IDT met with patient and for Team meeting. Discussed patient's progress in therapy. Pt is min-mod tx, ambulating 115 ft FWW, will start trailing steps, can lift arms much higher than on eval. Pt is feeding self, grooming and UE dressing at set up, Rosangela for LE dressing, SPT for toilet tx min-modx1. ST working on swallowing exercises with min cues, but having improved awareness for strategies and risk for aspiration. Will repeat MBS and start on FFWP. Continuing with reorientation, and memory strategies. Pt has berumen, iron levels are improving, dizziness improving. Explained Medicare with DC 05/26. Pt is improving and goal is to DC home. Pt agreeable to [facility] counseling for alcohol, depression, anxiety, PTSD at DC. SW to refer. Will continue to follow. Will Reteam next week. Arianna Islas, CABLE TECHNICIAN METER AND REGULATOR SHOP SUPERVISOR
[2020-05-18] MEDS: Lisinopril 10 MG Tablet PO (10:38)
[2020-05-18] MEDS: Gabapentin 100 MG Capsule PO ×2 (10:39→17:51)
[2020-05-18] MEDS: oxyCODONE 5 MG Tablet PO (10:39)
[2020-05-18] MEDS: Modafinil 200 MG Tablet PO (10:40)
[2020-05-18] MEDS: Sodium Ferric Gluconat 250 MG in 0.9% Normal Saline 250 ML 135 MG IV (11:20)
[2020-05-18] MEDS: 0.9% Saline Lock 10 ML Syringe IV ×2 (11:20→20:09)
--- NOTE | 2020-05-18 12:24 | NURSING ---
IV site leaking slightly. Drsg removed, area dried and new dressing applied. No further leaking noted @ this time.
--- NOTE | 2020-05-18 13:44 | PCM.PN.BLA ---
Progress Note Chun was seen on team rounds today and his was present. Afebrile VSS-blood pressures lying down are mildly elevated however he no longer has dizziness or lightheadedness and when he stands he is still orthostatic but the systolic never drops below 100 and he is asymptomatic. Maintaining appropriate oxygen saturation on RA Oral intake is erratic. He does not like thickened liquids and feels that this interferes with his ability to keep his fluid intake up. When he is not on IV fluids his intake is minimal and the orthostasis worsens despite the Midodrine. Fluid balance was negative yesterday. Even though he has decreased oral intake he continues to put out large amounts of urine. Urine is pale yellow today and not orange like it was previously. Discussed with nursing - no problems that need addressed Reviewed the PT/OT/ST notes Medication list reviewed. CT brain today showed resolution of the intraventricular hemorrhage and subarachnoid hemorrhage however he continues to have this proportion and enlargement of the lateral and third ventricles as compared to the extra-axial spaces suspicious for normal pressure hydrocephalus? He denies lightheadedness with standing now and also denies tinnitus. The pain in the shoulders is much better since the Gabapentin was added. Alert and oriented X 3. MM are still more moist Lungs - CTA HRRR, no gallop abd - soft and NT no peripheral edema Skin is warm and dry. Impressions 1. Severe orthostatic hypotension-suspect autonomic neuropathy possibly due to chronic alcoholism vs DI? 2. Iron deficiency anemia blood count is increasing with iron supplementation and the MCV is increasing, likely due to reticulocytosis 3. Syncopal episodes/falls for the past few years-suspect secondary to orthostatic hypotension 4. Hypercalcemia with vitamin D insufficiency of 3000 IU daily - decreased to 5. Severe osteopenia on plain x-ray of the back and shoulders-etiology? Mottled appearance to the right humeral head on x-ray of the right shoulder. Cannot rule out multiple myeloma at this point in time. Protein electrophoresis is pending. 6. Depression and PTSD 7. Longstanding alcoholism 8. Diffuse encephalopathy of the right cerebrum on EEG-secondary to recent traumatic brain injury? acute on chronic? 9. BPH intolerant of medication secondary to severe orthostatic hypotension. Will likely need surgical intervention going Continue midodrine Discontinue IV fluids and check daily weights and accurate I and O daily Inpatient E&M: [id number] Subs Hosp L2
--- NOTE | 2020-05-18 14:00 | NURSING ---
Dr. Truong has been made aware of CT scan results and referral placed to Dr. Ramos Neurology for appointment.
[2020-05-18 16:55] LABS: Bedside Glucose 159 mg/dL (70-110)
--- NOTE | 2020-05-18 18:10 | NURSING ---
Right AC and Left forearm have prior IV infiltrate sites that are red and warm to touch. Dr. Truong aware and new order for warm compress TID 10-15 minutes each. Warm compress has been applied today at 12 noon and 6pm. Will monitor.
[2020-05-18 19:22] VITALS: BP 147/78; PULSE 77; RESP 18; TEMP 37.2; O2SAT 96
[2020-05-18] MEDS: Tamsulosin HCl 0.4 MG Capsule PO (19:53)
[2020-05-18] MEDS: Senna/Docusate Sodium 1 Tablet 2 TABLET PO (19:54)
[2020-05-18] MEDS: Gabapentin 100 MG Capsule 200 MG PO (19:54)
[2020-05-18] MEDS: dilTIAZem CD 180 MG Capsule PO (19:55)
[2020-05-18 22:00] VITALS: PULSE 78; RESP 18; O2SAT 97
[2020-05-19] MEDS: Midodrine HCl 5 MG Tablet 10 MG PO ×3 (06:05→19:50)
[2020-05-19] MEDS: Acetaminophen 325 MG Tablet 650 MG PO ×3 (06:05→22:58)
[2020-05-19] MEDS: Magnesium Oxide 400 MG Tablet PO ×2 (07:45→19:49)
[2020-05-19] MEDS: Vitamin B Comp W-C Capsule 1 CAP PO (07:45)
[2020-05-19] MEDS: Folic Acid 1 MG Tablet PO (07:45)
[2020-05-19] MEDS: Multivitamins,Ther W-Minerals Tablet 1 TABLET PO (07:45)
[2020-05-19] MEDS: Gabapentin 100 MG Capsule PO ×2 (07:45→16:09)
[2020-05-19] MEDS: Finasteride 5 MG Tablet PO (07:45)
[2020-05-19] MEDS: Ascorbic Acid 500 MG Tablet PO (07:46)
[2020-05-19] MEDS: Atenolol 25 MG Tablet PO (07:46)
[2020-05-19] MEDS: Thiamine Hydrochloride 100 MG Tablet PO (07:46)
[2020-05-19] MEDS: Lisinopril 10 MG Tablet PO (07:47)
[2020-05-19] MEDS: Sertraline 50 MG Tablet PO (07:47)
[2020-05-19] MEDS: oxyCODONE 5 MG Tablet PO ×2 (07:51→13:33)
[2020-05-19] MEDS: Modafinil 200 MG Tablet PO (07:52)
[2020-05-19 08:04] VITALS: BP 146/82; PULSE 78; RESP 16; TEMP 36.6; O2SAT 94
[2020-05-19 11:12] VITALS: BP 73/48
--- NOTE | 2020-05-19 11:13 | NURSING ---
CALLED TO THERAPY ROOM BY THERAPY STAFF ASKING THAT I CHECK PT'S BP. PT C/O BEING LIGHTHEADED WHEN STOOD. THERAPY HAD PT SIT IN CHAIR. BP 73/48. PT HAS BEEN HAVING POSITIVE ORTHOS. PT TAKEN BACK TO HIS ROOM & ASSISTED IN TO BED. PT STATES FEELS BETTER.WILL CONTINUE TO MONITOR.
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
[2020-05-19 19:28] VITALS: BP 116/60; PULSE 74; RESP 16; TEMP 37.1; O2SAT 97
[2020-05-19] MEDS: 0.9% Saline Lock 10 ML Syringe IV (19:48)
[2020-05-19] MEDS: Senna/Docusate Sodium 1 Tablet 2 TABLET PO (19:49)
[2020-05-19] MEDS: Gabapentin 100 MG Capsule 200 MG PO (19:50)
[2020-05-19 20:08] LABS: PROEL- A/G Ratio 0.6 (0.7-1.7); PROEL- Albumin 2.5 g/dL (2.9-4.4); PROEL- Alpha-1 Globulin 0.5 g/dL (0.0-0.4); PROEL- Alpha-2 Globulin 1.2 g/dL (0.4-1.0); PROEL- Beta Globulin 1.6 g/dL (0.7-1.3); PROEL- Gamma Globulin 1.3 g/dL (0.4-1.8); PROEL- Globulin, Total 4.5 g/dL (2.2-3.9); PROELU- Albumin, Urine 17.4 % (.); PROELU- Alpha-1-Globulin,Ur 1.5 % (.); PROELU- Alpha-2-Globulin,Ur 10.1 % (.); PROELU- Beta Globulin, Ur 30.8 % (.); PROELU- Gamma Globulin, Ur 40.2 % (.); PROELU- M-Spike, Ur 29.1 % (Not Observed); Total Protein, Ur 45.3 mg/dL (Not Estab.)
[2020-05-19 20:29] LABS: HLA B27 Negative (.)
[2020-05-19 22:00] VITALS: PULSE 76; RESP 16; O2SAT 96
[2020-05-20] MEDS: Midodrine HCl 5 MG Tablet 10 MG PO ×3 (05:33→21:36)
[2020-05-20] MEDS: Acetaminophen 325 MG Tablet 650 MG PO ×3 (05:33→21:36)
[2020-05-20] MEDS: Folic Acid 1 MG Tablet PO (09:49)
[2020-05-20] MEDS: Thiamine Hydrochloride 100 MG Tablet PO (09:49)
[2020-05-20] MEDS: Multivitamins,Ther W-Minerals Tablet 1 TABLET PO (09:49)
[2020-05-20] MEDS: Vitamin B Comp W-C Capsule 1 CAP PO (09:50)
[2020-05-20] MEDS: Gabapentin 100 MG Capsule PO ×2 (09:50→16:49)
[2020-05-20] MEDS: Senna/Docusate Sodium 1 Tablet 2 TABLET PO (09:50)
[2020-05-20] MEDS: Atenolol 25 MG Tablet PO (09:50)
[2020-05-20] MEDS: Polyethylene Glycol 3350 17 GM PACKET PO (09:50)
[2020-05-20] MEDS: Magnesium Oxide 400 MG Tablet PO (09:51)
[2020-05-20] MEDS: Sertraline 50 MG Tablet PO (09:52)
[2020-05-20] MEDS: Ascorbic Acid 500 MG Tablet PO (09:52)
[2020-05-20 10:00] VITALS: BP 138/83; PULSE 99; RESP 16; TEMP 36.6; O2SAT 96
[2020-05-20] MEDS: Modafinil 200 MG Tablet PO (10:00)
[2020-05-20] MEDS: oxyCODONE 5 MG Tablet PO (10:04)
[2020-05-20 10:11] VITALS: BP 138/83; BP 158/90; BP 83/59; PULSE 124; PULSE 88; PULSE 99
[2020-05-20 21:24] VITALS: BP 134/80; PULSE 78; RESP 16; TEMP 37; O2SAT 97
[2020-05-20] MEDS: Magnesium Chloride 64 MG Delay Rel.Tablet 128 MG PO (21:35)
[2020-05-20] MEDS: Gabapentin 100 MG Capsule 200 MG PO (21:36)
[2020-05-20 22:00] VITALS: PULSE 79; RESP 16; O2SAT 97
[2020-05-20] MEDS: 0.9% Saline Lock 10 ML Syringe IV (23:13)
[2020-05-21] MEDS: 0.9% Saline Lock 10 ML Syringe IV (05:26)
[2020-05-21] MEDS: Midodrine HCl 5 MG Tablet 10 MG PO ×3 (05:26→20:58)
[2020-05-21] MEDS: Acetaminophen 325 MG Tablet 650 MG PO ×3 (05:26→20:56)
[2020-05-21] MEDS: oxyCODONE 5 MG Tablet PO (05:33)
[2020-05-21 05:46] LABS: Hematocrit 28.6 % (40-54)
[2020-05-21 06:10] LABS: Anion Gap 6 (5-15); BUN 14 mg/dL (7-18); BUN/Creat Ratio 18.3 RATIO (10-20); Chloride 101 mmol/L (98-107); Creatinine, Serum 0.76 mg/dL (0.70-1.30); EST Glomerular Filtration Rate 108 mL/min (>60); Est Glom Filt Rate - Afr Amer 130 mL/min (>60); Estimated Creatinine Clearance 78.68 ml/min; Glucose 87 mg/dL (74-106); Potassium 4.5 mmol/L (3.5-5.1); Sodium Level 134 mmol/L (136-145)
[2020-05-21] MEDS: Multivitamins,Ther W-Minerals Tablet 1 TABLET PO (07:53)
[2020-05-21] MEDS: Vitamin B Comp W-C Capsule 1 CAP PO (07:53)
[2020-05-21] MEDS: Gabapentin 100 MG Capsule PO ×2 (07:53→17:14)
[2020-05-21] MEDS: Folic Acid 1 MG Tablet PO (07:53)
[2020-05-21] MEDS: Magnesium Chloride 64 MG Delay Rel.Tablet 128 MG PO ×2 (07:54→20:58)
[2020-05-21] MEDS: Modafinil 200 MG Tablet PO (07:55)
[2020-05-21] MEDS: Ascorbic Acid 500 MG Tablet PO (07:56)
[2020-05-21] MEDS: Thiamine Hydrochloride 100 MG Tablet PO (07:56)
[2020-05-21] MEDS: Atenolol 25 MG Tablet PO (07:56)
[2020-05-21] MEDS: Sertraline 50 MG Tablet PO (07:57)
[2020-05-21 08:04] VITALS: BP 122/69; PULSE 95; RESP 16; TEMP 36.7; O2SAT 98
--- NOTE | 2020-05-21 08:30 | PCM.PN.BLA ---
Progress Note Afebrile orthostatics were still positive yesterday but, he had no near syncope and he was able to do steps yesterday. He did a full flight of 12 stairs with assist of 2 for safety given BP issues. He is still orthostatic today with blood pressure of 109/59 and a heart rate of 81 lying down and blood pressure of 75/54 with a heart rate of 110 while standing. 1 minute after sitting down the blood pressure returned to 121/69 with a heart rate of 82. Maintaining appropriate oxygen saturation on RA Oral intake is much improved since his diet has been advanced to thin liquids. Discussed with nursing - urine is foul smelling and cloudy in the berumen tubing Reviewed the PT/OT/ST notes. He has been advanced to a mechanical soft diet with thin liquids and distant supervision. He requires only minimal assistance with upper body and lower body dressing. Still requiring total assistance with toileting but minimal assistance with toilet transfer. Medication list reviewed. HLA B27 is negative. The serum protein electrophoresis pattern demonstrated a single M spike in the beta region which may represent monoclonal protein. The urine protein electrophoresis showed an M spike of 29.1. pain is adequately controlled. Denies nausea, abdominal pain, flank pain. Denies cephalgia. Alert, oriented x3, no apparent distress Lungs-clear to auscultation throughout Heart-regular rate and rhythm in the 70s while seated, no gallop Abdomen-flat, soft, nontender, normal bowel sounds The edema in the right first metacarpal phalangeal joint is still present but there is no increased warmth to touch, no erythema and it is not painful. No calf pain No rashes and no skin breakdown Impressions 1. orthostatic hypotension presumed to be due to autonomic neuropathy. TSH and Cortrosyn stim test are normal. Midodrine has helped. Even though he is still orthostatic he is only minimally symptomatic and only with prolonged standing. 2. syncope prior to admission resulting in SAH and IVH - recent CT shows no blood 3. possible UTI - related to Berumen - He is intolerant of medication to tx BPH and so the Berumen must stay as he retains up to 1 liter of urine when it is removed. Will need surgical intervention. Will refer to Dr. Oliver at [facility]. 4. chronic Depression and probable PTSD - will increase the Sertraline dose....has had no adverse side effects on 50 mg for the past week 5. Alcoholism 6. iron deficiency - has received iron sucrose IV and will be on Vitamin C and ferrous sulfate at DC 7. possible MM - will need to follow up with Oncology post DC UA sent and a request for a urine culture - await the results. Increase sertraline to 100 mg p.o. daily. Discontinue oxycodone Start Celebrex 100 mg p.o. twice daily for pain control Continue gabapentin DC Provigil in the a.m. UA STROKE Vital Signs/Narrative: Vital Signs Temp Pulse Resp BP Pulse Ox 05/21/20 08:04 98.1 F 95 16 122/69 H 98 Inpatient E&M: [id number] Subs Hosp L2
[2020-05-21 10:08] VITALS: BP 109/59; BP 116/63; BP 75/54; PULSE 110; PULSE 81; PULSE 88
[2020-05-21 10:11] VITALS: BP 121/69
[2020-05-21] MEDS: Ferrous Sulfate 325 MG Tablet PO (11:28)
[2020-05-21] MEDS: Celecoxib 100 MG Capsule PO ×2 (11:28→20:58)
[2020-05-21 15:49] LABS: Mucous, Urine 0 SEEN /hpf (<or=2+)
[2020-05-21 15:56] LABS: Color, Urine Yellow (Yellow); Glucose, Dipstick Normal (Normal); Ketone-Dipstick 5 mg/dl (Negative); Leukocyte Esterase-Dipstick 500 /ul (Negative); Nitrite-Dipstick Positive (Negative); Occult Blood-Urine 250 /ul (Negative); Protein-Dipstick 100 mg/dl (Negative); Specific Gravity, Urine 1.015 (1.002-1.030); Urine Bilirubin Dipstick Negative (Negative); Urine Clarity Cloudy (Clear); Urine Urobilinogen Normal (Normal)
[2020-05-21 16:22] LABS: Amorphous Sediment 1+ URATE; Bacteria 1+ /hpf (None Seen); Red Blood Cells-Urine 50-100 SEEN /hpf (0-5); Squamous Epithelial Cells - UA 5-10 SEEN /hpf (0-5); White Blood Cells >100 SEEN /hpf (0-5)
[2020-05-21] MEDS: Amox/Clavulanate 875 MG Tablet PO (18:40)
[2020-05-21 19:22] VITALS: BP 145/84; PULSE 73; RESP 16; TEMP 36.9; O2SAT 99
[2020-05-21] MEDS: Senna/Docusate Sodium 1 Tablet 2 TABLET PO (20:57)
[2020-05-21] MEDS: Gabapentin 100 MG Capsule 200 MG PO (20:58)
[2020-05-22 05:54] VITALS: BP 145/76; BP 152/92; BP 92/57; PULSE 71; PULSE 77
[2020-05-22] MEDS: Midodrine HCl 5 MG Tablet 10 MG PO ×3 (06:14→21:14)
[2020-05-22] MEDS: Acetaminophen 325 MG Tablet 650 MG PO ×3 (06:14→21:15)
[2020-05-22 07:30] VITALS: BP 145/76; PULSE 71; RESP 16; TEMP 36.8; O2SAT 98
[2020-05-22] MEDS: Magnesium Chloride 64 MG Delay Rel.Tablet 128 MG PO ×2 (08:32→21:14)
[2020-05-22] MEDS: Amox/Clavulanate 875 MG Tablet PO ×2 (08:32→16:06)
[2020-05-22] MEDS: Atenolol 25 MG Tablet PO (08:33)
[2020-05-22] MEDS: Thiamine Hydrochloride 100 MG Tablet PO (08:33)
[2020-05-22] MEDS: Celecoxib 100 MG Capsule PO ×2 (08:33→21:14)
[2020-05-22] MEDS: Sertraline 100 MG Tablet PO (08:33)
[2020-05-22] MEDS: Folic Acid 1 MG Tablet PO (08:35)
[2020-05-22] MEDS: Vitamin B Comp W-C Capsule 1 CAP PO (08:35)
[2020-05-22] MEDS: Multivitamins,Ther W-Minerals Tablet 1 TABLET PO (08:35)
[2020-05-22] MEDS: Modafinil 200 MG Tablet PO (08:37)
[2020-05-22] MEDS: Gabapentin 100 MG Capsule PO (08:39)
--- NOTE | 2020-05-22 09:10 | PCM.PN.BLA ---
Progress Note Augmentin day #2 Afebrile Blood pressure was 145/76 this morning with a heart rate of 71. Blood pressure standing was 92/57 with a heart rate of 71. He was asymptomatic. He is maintaining appropriate oxygen saturation on room air. Fluid intake is good since he was approved for thin liquids.He ate all his lunch today while we were talking His weight continues to decrease and today is 171 pounds and 15 ounces down from 184 pounds on 05/08/2020. Dietary is aware of weight loss and has increased supplements and caloric intake. No problems with nursing. He is eating well , sleeping well and very cooperative. He states his pain is better. Still having discomfort in the L wrist and the R shoulder but, this seems better today.....Celebrex was added to the drug regimen yesterday. Good bowel function. Denies any N/V. Alert and oriented X 3 Lungs - CTA HRRR at rest abd - soft and NT with normal bowel sounds no edema The urine is more clear today and it is also a paler yellow. No hematuria detected. no rashes The second MCP joint on the Right hand is swollen without erythema and with no increased warmth......it looks to me like a possible tophi? Impressions 1. suspected MM 2. suspected hyperuricemia 3. suspected autonomic and sensory neuropathy 4. recent hx of vertebral fractures with diffuse osteopenia on Xrays 5. UTI - catheter associated -likely the patient is immunocompromised due to suspected MM. 6. prostatic enlargement with obstructive uropathy - he is agreeable to referral to Dr. Oliver post discharge 7. Depression- sx are improving with Sertraline and he has had no adverse reactions to the medication 8. long hx of alcoholism - needs to go to counselling post discharge 9. iron deficiency anemia with an low iron saturation of 14% and increased ferritin refer to heme/onc refer to Dr. Oliver check UA Continue the Midodrine Decrease the Atenolol to 12.5 mg daily The UA showed 50-100 RBCs per high-power field and greater than 100 WBCs per high-power field. There was +1 urinate and it was positive for nitrite. Urine culture is pending. He was started on Augmentin on 05/21/2020. STROKE Vital Signs/Narrative: Vital Signs Temp Pulse Pulse Pulse Pulse Resp BP 05/22/20 07:30 98.2 F 71 16 145/76 H 05/22/20 05:54 71 77 71 BP BP BP Pulse Ox 05/22/20 07:30 98 05/22/20 05:54 145/76 H 152/92 H 92/57 L Inpatient E&M: [id number] Subs Hosp L2
[2020-05-22] MEDS: Ascorbic Acid 500 MG Tablet PO (14:44)
[2020-05-22] MEDS: Ferrous Sulfate 325 MG Tablet PO (14:45)
[2020-05-22] MEDS: Gabapentin 100 MG Capsule 200 MG PO ×2 (16:08→21:14)
--- NOTE | 2020-05-22 18:13 | NURSING ---
aware of Dr. Truong order for patient to follow up with an oncology Dr upon discharge due to his abnormal lab levels. asked if patient had cancer. This nurse replied, No but that Dr. Truong wants Dr. Brunson or his associate to review everything. Dr. Truong also would like Dr. Oliver to follow up with patient due to urinary retention.
[2020-05-22 19:32] VITALS: BP 165/78; PULSE 67; RESP 16; TEMP 36.9; O2SAT 97
[2020-05-23] MEDS: Midodrine HCl 5 MG Tablet 10 MG PO ×3 (05:40→22:29)
[2020-05-23] MEDS: Acetaminophen 325 MG Tablet 650 MG PO ×3 (05:40→22:27)
[2020-05-23] MEDS: Magnesium Chloride 64 MG Delay Rel.Tablet 128 MG PO ×2 (07:33→22:29)
[2020-05-23] MEDS: Celecoxib 100 MG Capsule PO ×2 (07:33→22:30)
[2020-05-23] MEDS: Amox/Clavulanate 875 MG Tablet PO ×2 (07:33→17:21)
[2020-05-23] MEDS: Thiamine Hydrochloride 100 MG Tablet PO (07:33)
[2020-05-23] MEDS: Gabapentin 100 MG Capsule 200 MG PO ×3 (07:33→22:29)
[2020-05-23] MEDS: Folic Acid 1 MG Tablet PO (07:33)
[2020-05-23] MEDS: Atenolol 25 MG Tablet 12.5 MG PO (07:34)
[2020-05-23] MEDS: Multivitamins,Ther W-Minerals Tablet 1 TABLET PO (07:35)
[2020-05-23] MEDS: Vitamin B Comp W-C Capsule 1 CAP PO (07:35)
[2020-05-23] MEDS: Sertraline 100 MG Tablet PO (07:36)
[2020-05-23 07:45] VITALS: BP 139/73; PULSE 69; RESP 16; TEMP 36.7; O2SAT 97
--- NOTE | 2020-05-23 10:07 | PCM.PN.BLA ---
Progress Note Vital signs stable. Systolic blood pressure is mildly increased when he is supine but we are tolerating vest in order to maintain the blood pressure with standing. He is asymptomatic now and denies lightheadedness or ringing in his ears when standing. He is maintaining appropriate oxygen saturation on room air Fluid intake is good now and he is eating better. Nursing reports no problems. PT/OT/ST notes were reviewed. All lab was personally reviewed. Hemoglobin is stable at 9 now that he is hydrated. It was 11 a few days ago however he was dehydrated and hemoconcentrated at that time. Urine grew a pansensitive E. coli so we will continue Augmentin x7 days Denies lightheadedness, shortness of breath, chest pain. Appetite is improving. Alert, oriented x3, no apparent distress, making much better eye contact and focusing better Lungs-clear to auscultation throughout Heart-regular rate and rhythm, no gallop Abdomen-soft, nontender, bowel sounds present Impressions 1. Orthostatic hypotension-asymptomatic on midodrine 2. Complicated urinary tract infection due to presence of Rodney catheter placed for marked urinary retention secondary to a pansensitive E. coli 3. Iron deficiency anemia 4. M spike on serum protein electrophoresis-we will refer to oncology for suspected multiple myeloma 5. Chronic depression and posttraumatic stress disorder 6. Alcoholism H&H, BMP and uric acid on Monday Discharge early next week Follow-up with Dr. Oliver and Dr. Dunbar soon after discharge Continue high calorie diet Continue Augmentin for 7 days Refer to 180 at discharge Continue sertraline STROKE Vital Signs/Narrative: Vital Signs Temp Pulse Resp BP Pulse Ox 05/23/20 07:45 98.1 F 69 16 139/73 H 97 Inpatient E&M: [id number] Subs Hosp L2
[2020-05-23] MEDS: Ascorbic Acid 500 MG Tablet PO (12:45)
[2020-05-23] MEDS: Ferrous Sulfate 325 MG Tablet PO (12:45)
[2020-05-23 19:30] VITALS: BP 137/70; PULSE 70; RESP 18; TEMP 37; O2SAT 96
[2020-05-23] MEDS: Senna/Docusate Sodium 1 Tablet 2 TABLET PO (22:28)
[2020-05-24] MEDS: Acetaminophen 325 MG Tablet 650 MG PO ×3 (06:28→21:40)
[2020-05-24] MEDS: Midodrine HCl 5 MG Tablet 10 MG PO ×3 (06:29→21:41)
[2020-05-24 07:30] VITALS: BP 149/88; PULSE 72; RESP 18; TEMP 36.7; O2SAT 95
[2020-05-24] MEDS: Vitamin B Comp W-C Capsule 1 CAP PO (07:48)
[2020-05-24] MEDS: Magnesium Chloride 64 MG Delay Rel.Tablet 128 MG PO ×2 (07:49→21:41)
[2020-05-24] MEDS: Celecoxib 100 MG Capsule PO ×2 (07:49→21:41)
[2020-05-24] MEDS: Folic Acid 1 MG Tablet PO (07:50)
[2020-05-24] MEDS: Sertraline 100 MG Tablet PO (07:50)
[2020-05-24] MEDS: Amox/Clavulanate 875 MG Tablet PO ×2 (07:51→17:02)
[2020-05-24] MEDS: Senna/Docusate Sodium 1 Tablet 2 TABLET PO (07:51)
[2020-05-24] MEDS: Multivitamins,Ther W-Minerals Tablet 1 TABLET PO (07:51)
[2020-05-24] MEDS: Gabapentin 100 MG Capsule 200 MG PO ×3 (07:52→21:41)
[2020-05-24] MEDS: Atenolol 25 MG Tablet 12.5 MG PO (07:53)
[2020-05-24] MEDS: Thiamine Hydrochloride 100 MG Tablet PO (07:54)
[2020-05-24] MEDS: Ferrous Sulfate 325 MG Tablet PO (12:51)
[2020-05-24] MEDS: Ascorbic Acid 500 MG Tablet PO (12:52)
[2020-05-24 19:05] VITALS: BP 139/74; PULSE 81; RESP 16; TEMP 36.7; O2SAT 98
[2020-05-25 05:37] LABS: Hematocrit 29.5 % (40-54); Hemoglobin 9.5 g/dL (13.0-16.5)
[2020-05-25 05:54] LABS: Anion Gap 8 (5-15); BUN 19 mg/dL (7-18); BUN/Creat Ratio 22.5 RATIO (10-20); Calcium,Total 9.4 mg/dL (8.5-10.1); Chloride 104 mmol/L (98-107); Creatinine, Serum 0.84 mg/dL (0.70-1.30); EST Glomerular Filtration Rate 96 mL/min (>60); Est Glom Filt Rate - Afr Amer 116 mL/min (>60); Estimated Creatinine Clearance 91.61 ml/min; Glucose 101 mg/dL (74-106); Potassium 4.5 mmol/L (3.5-5.1); Sodium Level 137 mmol/L (136-145); Uric Acid 7.8 mg/dL (3.5-7.2)
[2020-05-25] MEDS: Acetaminophen 325 MG Tablet 650 MG PO ×3 (06:46→21:35)
[2020-05-25] MEDS: Midodrine HCl 5 MG Tablet 10 MG PO ×3 (06:46→21:35)
[2020-05-25 07:55] VITALS: BP 148/90; PULSE 67; RESP 16; TEMP 36.9; O2SAT 98
[2020-05-25] MEDS: Amox/Clavulanate 875 MG Tablet PO ×2 (08:02→16:46)
[2020-05-25] MEDS: Vitamin B Comp W-C Capsule 1 CAP PO (08:02)
[2020-05-25] MEDS: Multivitamins,Ther W-Minerals Tablet 1 TABLET PO (08:02)
[2020-05-25] MEDS: Folic Acid 1 MG Tablet PO (08:02)
[2020-05-25] MEDS: Magnesium Chloride 64 MG Delay Rel.Tablet 128 MG PO ×2 (08:03→21:35)
[2020-05-25] MEDS: Celecoxib 100 MG Capsule PO ×2 (08:03→21:35)
[2020-05-25] MEDS: Atenolol 25 MG Tablet 12.5 MG PO (08:04)
[2020-05-25] MEDS: Thiamine Hydrochloride 100 MG Tablet PO (08:05)
[2020-05-25] MEDS: Sertraline 100 MG Tablet PO (08:06)
[2020-05-25] MEDS: Gabapentin 100 MG Capsule 200 MG PO ×3 (08:07→21:35)
--- NOTE | 2020-05-25 08:49 | PN_ITS ---
Progress Note Day #5/ Augmentin for pansensitive E. coli UTI Isaiah was seen on team rounds today and his Roxi was present. Rossi came in for care management instruction with the therapists. Afebrile Weight is stable He is maintaining appropriate oxygen saturation on room air. Orthostatics are still very positive but he is asymptomatic and denies lightheadedness or extreme fatigue. Review of the lab today shows that the BUN/creatinine ratio is 22.5. He was reminded to increase his fluid intake to help with orthostasis. I recommend he drink at least 2 L daily. Electrolytes are within normal limits today. Uric acid is elevated at 7.8. Hemoglobin is stable at 9.5. No complaints today. Denies lightheadedness. Pain is adequately controlled. Alert, appropriate, good color in his face, happy to be going home, speech is fluid, not stumbling with word finding Lungs - CTA with good air exchange HRRR abd - soft, NT, normal BS's present no peripheral edema, no calf pain Impressions 1. debility due to injuries sustained in a fall 2. Syncopal episodes in the past due to orthostatic hypotension. I suspect he has autonomic neuropathy due to LT alcohol abuse. He is asymptomatic at present on Midodrine. Lying down the BP is a little high which must be tolerated because of the severe orthostasis. 3. M spoke on SPE/BAL. Will follow up with Dr. Brunson 4. Obstructive uropathy due to BPH. Intolerant of medication to treat BPH due to severe orthostatic hypotension. Iron deficiency anemia-hemoglobin is stable 5. Complicated UTI related to Rodney catheter presents due to pansensitive E. coli I had a long talk with Chun and Rossi about plans for DC. Appts have been scheduled with (1) Dr. Kodi Brunson to evaluate for suspected multiple myeloma. (2) Dr. Oliver to evaluate for obstructive uropathy (3) Dr. Alessandro Ramos for neurology follow up. I strongly recommend that Chnu follow up with [facility] for counselling for ETOH dependence. If they can not guidance counselor him for depression and PTSD then he will also need to follow up with a psychologist or SW. He tells me that he feels so much better now off ETOH that he is going to follow up. DC tomorrow. STROKE Vital Signs/Narrative: Vital Signs Temp Pulse Resp BP Pulse Ox 05/25/20 07:55 98.4 F 67 16 148/90 H 98 Inpatient E&M: [id number] Subs Hosp L2
[2020-05-25] MEDS: Ascorbic Acid 500 MG Tablet PO (11:07)
[2020-05-25] MEDS: Ferrous Sulfate 325 MG Tablet PO (11:07)
[2020-05-25 11:30] VITALS: BP 118/78; BP 146/78; BP 88/66; PULSE 60; PULSE 73; PULSE 90
--- NOTE | 2020-05-25 12:01 | CASEMGMT ---
Addendum entered by Arianna Islas 05/25/20 12:44: DME referred to [facility]. to moss picker at store when ready. Original Note: Social Work IDT met with patient and for Team meeting. Discussed patient's progress in therapy. Pt is CGA for transfers and bed mobility, walking with both straight cane and platform walker over 800ft CGA. Pt has improved activity tolerance. Completed full fight of steps with 2 HR at CGA, Rosangela f or LE dressing, bathing, set up for UE dressing. ST reporting confusion resolving, working on memory, problem solving, upgraded to [facility] soft diet, and strengthening exercises. Pt to f/u with Dr. Velasquez, neurologist, urologist, and hand surgeon. Discussed pt's possible new dx of multiple myeloma. Physician stressed how alcohol is toxic to pt's body and affects many medical issues. Pt understood and agrees to no longer drink. Pt agreed to referral to [facility]. Discussed DC plans. Pt to DC with outpatient therapy at [facility], needs cane, platform walker, and to purchase shower chair. Pt will DC home with catheter - nursing to teach usage. staying to complete shared care on this day. SW provided grab bar resources. Referral made to [facility] PT/OT/ST, [facility] for cane, right platform FWW, [facility] - appt 05/28 at 1430. Plan: DC home with 05/26 with above services Arianna Islas, BUILDING CUSTODIAN QUALITY ASSOCIATE
[2020-05-25 21:30] VITALS: PULSE 67; RESP 18; O2SAT 99
[2020-05-25 22:00] VITALS: BP 166/84; PULSE 67; RESP 18; TEMP 36.8; O2SAT 99
[2020-05-26] MEDS: Midodrine HCl 5 MG Tablet 10 MG PO (05:29)
[2020-05-26] MEDS: Acetaminophen 325 MG Tablet 650 MG PO (05:29)
[2020-05-26] MEDS: Magnesium Chloride 64 MG Delay Rel.Tablet 128 MG PO (08:29)
[2020-05-26] MEDS: Atenolol 25 MG Tablet 12.5 MG PO (08:30)
[2020-05-26] MEDS: Vitamin B Comp W-C Capsule 1 CAP PO ×2 (08:30→08:31)
[2020-05-26] MEDS: Multivitamins,Ther W-Minerals Tablet 1 TABLET PO (08:32)
[2020-05-26] MEDS: Thiamine Hydrochloride 100 MG Tablet PO (08:32)
[2020-05-26] MEDS: Celecoxib 100 MG Capsule PO (08:32)
[2020-05-26] MEDS: Folic Acid 1 MG Tablet PO (08:33)
[2020-05-26] MEDS: Sertraline 100 MG Tablet PO (08:33)
[2020-05-26] MEDS: Amox/Clavulanate 875 MG Tablet PO (08:33)
[2020-05-26] MEDS: Gabapentin 100 MG Capsule 200 MG PO (08:35)
[2020-05-26 08:43] VITALS: BP 155/81; PULSE 77; RESP 17; TEMP 36.8; O2SAT 97
[2020-05-26 09:03] VITALS: PULSE 77; RESP 18; O2SAT 97
[2020-05-26] MEDS: Ferrous Sulfate 325 MG Tablet PO (11:35)
[2020-05-26] MEDS: Ascorbic Acid 500 MG Tablet PO (11:35)
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
[2020-05-26 13:17] VITALS: BP 155/81; PULSE 77; RESP 17; TEMP 36.8; O2SAT 97
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
== END 2020-05-26 14:35 | disposition home or self-care (01) | DRG 65 ==
PROVIDERS: Hospitalist; Internal Medicine; Admitting Provider Family Medicine Geriatric Medicine; PCP Family Medicine; Visit Provider Family Medicine Geriatric Medicine
DX: I60.9 Nontraumatic subarachnoid hemorrhage, unspecified (principal); F10.231 Alcohol dependence with withdrawal delirium; T83.518A Infection and inflammatory reaction due to other urinary catheter, initial encounter; N39.0 Urinary tract infection, site not specified; G93.40 Encephalopathy, unspecified; E87.1 Hypo-osmolality and hyponatremia; Z23 Encounter for immunization; R13.10 Dysphagia, unspecified; I10 Essential (primary) hypertension; N40.1 Benign prostatic hyperplasia with lower urinary tract symptoms; N13.9 Obstructive and reflux uropathy, unspecified; I61.5 Nontraumatic intracerebral hemorrhage, intraventricular; M48.061 Spinal stenosis, lumbar region without neurogenic claudication; G47.33 Obstructive sleep apnea (adult) (pediatric); K76.0 Fatty (change of) liver, not elsewhere classified; E53.9 Vitamin B deficiency, unspecified; E55.9 Vitamin D deficiency, unspecified; E54 Ascorbic acid deficiency; D69.6 Thrombocytopenia, unspecified; B95.2 Enterococcus as the cause of diseases classified elsewhere; B96.20 Unspecified Escherichia coli [E. coli] as the cause of diseases classified elsewhere; M50.31 Other cervical disc degeneration, high cervical region; Z86.19 Personal history of other infectious and parasitic diseases; F43.11 Post-traumatic stress disorder, acute; F32.9 Major depressive disorder, single episode, unspecified; F41.9 Anxiety disorder, unspecified; D50.9 Iron deficiency anemia, unspecified; I95.1 Orthostatic hypotension
CPT/HCPCS: 36415; 70450; 71045; 80048; 80053; 81001; 81374; 82040; 82274; 82306; 82533; 82570; 82607; 82728; 82746; 82962; 83540; 83550; 83735; 83970; 84100; 84153; 84165; 84166; 84300; 84443; 84550; 85014; 85018; 85025; 85027; 85610; 85730; 86850; 86900; 86901; 86920; 86922; 87040; 87086; 87088; 87186; 92507; 92523; 92526; 92610; 96125; 97110; 97112; 97116; 97129; 97162; 97166; 97530; 97535; 97802; 99251; G0008; J7030; J7040; J7050; P9016; 90686; A4216; G0103; G0463; J0834; J1940; J2916; J3490

== ENCOUNTER 2020-06-06 11:32 | Emergency (ER) | payer MEDICARE, BC, SELFPAY ==
[2020-05-07 15:50] VITALS: BMI 24.9
[2020-06-06 11:33] VITALS: BP 135/80; PULSE 89; RESP 16; TEMP 36.1; O2SAT 96; BMI 23.1
--- NOTE | 2020-06-06 11:50 | ED.DCSUM_ITS ---
History of Present Illness Informant: Patient, Family Onset: Yesterday Narrative: 65-year-old male presents with complaint of urinary retention. He states he had a brain bleed in April and went to rehab and just had his Rodney removed 1 week ago when he was discharged home. His urologist advised him to straight cath until he can urinate on his own. Patient states he has not been able to void since yesterday morning despite straight cathing. Today when he tried to cath there was some blood in the tube. He has lower abdominal fullness and discomfort. He also had chills this morning. Denies fevers, chest pain, dyspnea, cough, nausea, vomiting, or bowel changes. <Lynnette Perales - Last Filed: 06/06/20 13:12> <CeasarTavo - Last Filed: 06/06/20 13:21> Chief Complaint: Complaint Past Medical History Past Medical History: - - Orthosatic hypotension, brain bleed Surgical History: - - Colonoscopy. Smoking Status: Never smoker - Family History Maternal Family History: Family History (Last Reviewed 03/13/19 @ 15:57 by Anita Elizondo) Mother Heart disease Hypertension Father Hypertension Family History: Reports: No pertinent history Paternal Family History: Family History (Last Reviewed 03/13/19 @ 15:57 by Anita Elizondo) Mother Heart disease Hypertension Father Hypertension Family History: Reports: No pertinent history <Lynnette Perales - Last Filed: 06/06/20 13:12> - Family History Maternal Family History: Family History (Last Reviewed 03/13/19 @ 15:57 by Anita Elizondo) Mother Heart disease Hypertension Father Hypertension Paternal Family History: Family History (Last Reviewed 03/13/19 @ 15:57 by Anita Elizondo) Mother Heart disease Hypertension Father Hypertension <Mcdonough,Tavo - Last Filed: 06/06/20 13:21> - Allergies and Home Meds Allergies/Adverse Reactions: Allergies No Known Allergies Allergy (Verified 06/06/20 11:33) Primary Care Physician: Onur Garcia MD [Primary Care Provider] - Review of Systems General: Reports: Chills Eyes: Denies: Visual changes - bilaterally, Diplopia ENT: Denies: Rhinorrhea, Sore throat Cardiovascular: Denies: Chest pain, Palpitations Respiratory: Denies: Dyspnea, Cough, Dyspnea on exertion Gastrointestinal: Denies: Abdominal pain, Nausea, Vomiting, Diarrhea, Melena, Hematochezia Musculoskeletal: Denies: Back pain, Extremity Pain Skin: Denies: Rash, Wounds Neurological: Denies: Headache, Weakness, Numbness <RainaarlethAstrida - Last Filed: 06/06/20 13:12> Physical Exam Vital Signs/Narrative: Vital Signs Temp Pulse Resp BP Pulse Ox 06/06/20 11:33 97.0 F L 89 16 135/80 H 96 Inital Vital Signs reviewed: Yes General: Well nourished, Well developed, No Acute Distress Head: Normocephalic, Atraumatic Eyes: Perrl, EOMI ENT: Moist mucous membranes, No rhinorrhea Neck: Supple, Nontender Cardiovascular: Regular rate, Regular rhythm, No murmurs Respiratory: No distress, CTA bilaterally, Chest nontender Abdomen: Soft, Normal bowel sounds Rectal: - - lower abdominal fullness and mild tenderness to palpation, soft with no guarding or rebound Back: Nontender, Normal Inspection Extremities: Nontender, No edema Skin: Normal color, No rash Neurological: Alert, Oriented x3, Cranial nerves II-XII grossly intact Psychological: Normal affect, Normal Mood <Lynnette Perales - Last Filed: 06/06/20 13:12> Vital Signs/Narrative: Vital Signs Temp Pulse Resp BP Pulse Ox 06/06/20 11:33 97.0 F L 89 16 135/80 H 96 <McdonoughTavo - Last Filed: 06/06/20 13:21> Diagnostic/Tx/Re-eval Laboratory Data 06/06/20 06/06/20 06/06/20 12:00 12:03 12:03 WBC 11.8 H RBC 2.89 L Hgb 9.1 L Hct 28.8 L MCV 99.7 H MCH 31.5 MCHC 31.6 L RDW Std Deviation 54.7 H RDW Coeff of [place] 14.9 H Plt Count 131 L MPV 9.5 Immature Gran % (Auto) 0.500 Neut % (Auto) 85.2 H Lymph % (Auto) 6.8 L [place] % (Auto) 7.1 Eos % (Auto) 0.2 Baso % (Auto) 0.2 Absolute Neuts (auto) 10.0 H Absolute Lymphs (auto) 0.80 L Nucleated RBC % 0 Sodium 136 Potassium 4.2 Chloride 104 Carbon Dioxide 28.0 Anion Gap 4 L BUN 28 H Creatinine 1.44 H Estim Creat Clear Calc 54.61 Est GFR (MDRD) Af Amer 63 Est GFR (MDRD) Non-Af 52 L BUN/Creatinine Ratio 19.4 Glucose 129 H Lactic Acid Calcium 9.1 Urine Color Yellow Urine Clarity Sl. Cloudy Urine pH 7.0 Ur Specific [place] 1.010 Urine Protein 100 H Urine Glucose (UA) Normal Urine Ketones Negative Urine Occult Blood 150 H Urine Nitrite Negative Urine Bilirubin Negative Urine Urobilinogen Normal Ur Leukocyte Esterase 500 H Urine RBC 0 SEEN Urine WBC 5-10 SEEN Ur Squamous Epith Cells 0 SEEN Urine Bacteria 3+ Urine Mucus 0 SEEN 06/06/20 12:33 WBC RBC Hgb Hct MCV MCH MCHC RDW Std Deviation RDW Coeff of [place] Plt Count MPV Immature Gran % (Auto) Neut % (Auto) Lymph % (Auto) [place] % (Auto) Eos % (Auto) Baso % (Auto) Absolute Neuts (auto) Absolute Lymphs (auto) Nucleated RBC % Sodium Potassium Chloride Carbon Dioxide Anion Gap BUN Creatinine Estim Creat Clear Calc Est GFR (MDRD) Af Amer Est GFR (MDRD) Non-Af BUN/Creatinine Ratio Glucose Lactic Acid 2.0 Calcium Urine Color Urine Clarity Urine pH Ur Specific [place] Urine Protein Urine Glucose (UA) Urine Ketones Urine Occult Blood Urine Nitrite Urine Bilirubin Urine Urobilinogen Ur Leukocyte Esterase Urine RBC Urine WBC Ur Squamous Epith Cells Urine Bacteria Urine Mucus - Medical Decision Making Patient presented for acute urinary retention and chills. Patient appears well nontoxic. Vital signs within normal limits. Rodney was placed with over 1000 cc output. Urinalysis shows UTI. Labs show leukocytosis of 11.8 with no bandemia. Lactate negative. Creatinine mildly elevated at 1.44. He was given IV Rocephin and a prescription for Bactrim. Follow-up with urology next week for Rodney removal. He is familiar with Rodney catheter care. He was agreeable and discharged home in stable condition. <Lynnette Perales - Last Filed: 06/06/20 13:12> - Medical Decision Making I performed an independent history and physical. Patient presents because of no urine output. He and his were unsuccessful at self-catheterization. He had shaking chills last evening and mild chills this morning. He denies documented fever. He denies subjective fever. He does report lower midline abdominal discomfort. He does have history of enlarged prostate. He denies testicular pain. He denies tenesmus. Denies rectal pain. Patient has pain outpatient over the suprapubic area. Patient has an indwelling Rodney that was ordered. There is approximate 1000 cc of hazy appearing dark urine. HEENT exam is unremarkable. Lungs are clear auscultation. Heart is regular. There is no dermatologic lesions noted. He is alert oriented with a nonfocal neurologic exam. Blood work was obtained to assess for severe sepsis. Lactate was normal. He does not have any sirs criteria. Since this is due to self-catheterization he was treated for complicated urinary tract infection. Culture was obtained. He received a dose of Rocephin prior to discharge. He was discharged with a prescription. <Tavo Mcdonough - Last Filed: 06/06/20 13:21> ED Disposition <Lynnette Perales - Last Filed: 06/06/20 13:12> <Tavo Mcdonough - Last Filed: 06/06/20 13:21> - Plan for ED Patient: Disposition: Home or Assisted Living Diagnosis: Urine retention, Complicated urinary tract infection Instructions: ED Urinary Retention Male, ED CYSTITIS Male Adult Prescriptions: Smz/Tmp Ds [Bactrim Ds] 1 tab PO BID 7 Days #14 tab Transmission Status: Received by [facility]/pharmacy #[id number] Referrals: Onur Garcia MD [Primary Care Provider] -
[2020-06-06 12:10] LABS: Mucous, Urine 0 SEEN /hpf (<or=2+); Red Blood Cells-Urine 0 SEEN /hpf (0-5); Squamous Epithelial Cells - UA 0 SEEN /hpf (0-5)
[2020-06-06 12:15] LABS: Basophil# 0.02 X10^3/uL; Basophil% 0.2 % (0-1); Eosinophil# 0.02 X10^3/uL; Eosinophils% 0.2 % (0-5); Hematocrit 28.8 % (40-54); Hemoglobin 9.1 g/dL (13.0-16.5); Lymphocyte % 6.8 % (19-41); Mean Corp Hgb Conc 31.6 g/dL (32-36); Mean Corpuscular Hgb 31.5 pg (27.0-32.0); Mean Corpuscular Volume 99.7 fL (80-94); Mean Platelet Vol. 9.5 fl (6.2-12.0); Monocyte# 0.83 X10^3/uL; Monocyte% 7.1 % (0-10); NRBC Flagged by Analyzer 0 % (0-5); Neutrophil # 10.03 X10^3/uL (2.7-7.7); Neutrophil % 85.2 % (47-70); Platelet Count 131 K/mm3 (150-450); RBC Distribution Width CV 14.9 % (11.6-14.6); RBC Distribution Width SD 54.7 fl (35.1-43.9); Red Blood Count 2.89 M/mm3 (4.6-6.2); White Blood Count 11.8 K/mm3 (4.4-11.0)
[2020-06-06 12:16] LABS: Color, Urine Yellow (Yellow); Glucose, Dipstick Normal (Normal); Ketone-Dipstick Negative (Negative); Leukocyte Esterase-Dipstick 500 /ul (Negative); Nitrite-Dipstick Negative (Negative); Occult Blood-Urine 150 /ul (Negative); Protein-Dipstick 100 mg/dl (Negative); Urine Bilirubin Dipstick Negative (Negative); Urine Clarity Sl. Cloudy (Clear); Urine Urobilinogen Normal (Normal)
[2020-06-06 12:22] LABS: Bacteria 3+ /hpf (None Seen); White Blood Cells 5-10 SEEN /hpf (0-5)
[2020-06-06 12:34] LABS: BUN 28 mg/dL (7-18); BUN/Creat Ratio 19.4 RATIO (10-20); Calcium,Total 9.1 mg/dL (8.5-10.1); Creatinine, Serum 1.44 mg/dL (0.70-1.30); EST Glomerular Filtration Rate 52 mL/min (>60); Est Glom Filt Rate - Afr Amer 63 mL/min (>60); Estimated Creatinine Clearance 54.61 ml/min; Glucose 129 mg/dL (74-106); Sodium Level 136 mmol/L (136-145)
[2020-06-06 12:35] LABS: Anion Gap 4 (5-15); Chloride 104 mmol/L (98-107); Potassium 4.2 mmol/L (3.5-5.1)
[2020-06-06] MEDS: Ceftriaxone 1 GM/50 ML BAG IV (13:02)
[2020-06-06 14:03] VITALS: BP 138/74; PULSE 75; RESP 18; O2SAT 100
[2020-06-06 16:37] LABS: Reflex Lactate? Y
== END 2020-06-06 14:04 | disposition home or self-care (01) ==
PROVIDERS: Emergency Provider Physician Assistant; PCP Family Medicine
DX: N39.0 Urinary tract infection, site not specified (principal); N40.1 Benign prostatic hyperplasia with lower urinary tract symptoms; R33.9 Retention of urine, unspecified; Z79.899 Other long term (current) drug therapy
CPT/HCPCS: 51702; 80048; 81001; 83605; 85025; 87086; 87088; 87186; 96365; 99284; J7030; A4216

== ENCOUNTER 2020-06-24 08:57 | Day surgery (SDC) | payer MEDICARE, BC, SELFPAY ==
[2020-06-18 17:24] LABS: Hematocrit 32.8 % (40-54); Hemoglobin 10.1 g/dL (13.0-16.5); Mean Corp Hgb Conc 30.8 g/dL (32-36); Mean Corpuscular Hgb 30.9 pg (27.0-32.0); Mean Corpuscular Volume 100.3 fL (80-94); Mean Platelet Vol. 9.3 fl (6.2-12.0); Platelet Count 298 K/mm3 (150-450); RBC Distribution Width CV 16.1 % (11.6-14.6); RBC Distribution Width SD 60.1 fl (35.1-43.9); Red Blood Count 3.27 M/mm3 (4.6-6.2); White Blood Count 12.6 K/mm3 (4.4-11.0)
[2020-06-18 17:40] LABS: Partial Thromboplast Time 34.7 Seconds (24.1-36.2)
[2020-06-18 17:43] LABS: International Normalized Ratio 1.2; Prothrombin Time (Protime)PT. 14.3 SECONDS (11.7-14.9)
[2020-06-18 17:47] LABS: AST(SGOT) 19 U/L (15-37); Alanine Aminotransfer ALT/SGPT 18 U/L (16-61); Albumin, Serum 3.4 g/dL (3.2-5.0); Alkaline Phosphatase 156 U/L (45-117); Bilirubin, Direct 0.18 mg/dL (0.00-0.30); Globulin 4.5 g/dL (2.2-4.2); Protein, Total 7.9 g/dL (6.4-8.2)
[2020-06-18 18:33] LABS: Anion Gap 6 (5-15); BUN 25 mg/dL (7-18); BUN/Creat Ratio 21.4 RATIO (10-20); Calcium,Total 9.4 mg/dL (8.5-10.1); Chloride 108 mmol/L (98-107); Creatinine, Serum 1.17 mg/dL (0.70-1.30); EST Glomerular Filtration Rate 66 mL/min (>60); Est Glom Filt Rate - Afr Amer 80 mL/min (>60); Glucose 100 mg/dL (74-106); Potassium 4.8 mmol/L (3.5-5.1); Sodium Level 139 mmol/L (136-145)
[2020-06-24] VITALS (13 sets, daily range): BP systolic 114–198; BP diastolic 71–102; PULSE 59–80; RESP 16–18; TEMP 36.2–37.1; O2SAT 96–100; BMI 22.6
[2020-06-24] MEDS: Lactated Ringers 1,000 ML 100 ML IV (10:00)
--- NOTE | 2020-06-24 10:39 | PCM.HP.STD ---
Problem List (1) BPH with obstruction/lower urinary tract symptoms Status: Acute History of Present Illness Date of Admission: 06/24/20 Chief Complaint: BPH with obstruction retention of urine The patient is a 69 year old male who was in the rehab hospital after suffering a neurological injury for a long time he is now back home he is tried several voiding trials with no success on cystoscopy was found to have very thickened trabeculated bladder and large median lobe and obstruction of the prostate he has failed medical therapy and failed conservative measures were to proceed with a transurethral resection of the prostate. Past Medical History Past Medical History (Chronic Problems): Chronic Problems (Last Updated 05/26/20 @ 12:[address] Mary Ann Truong, DO) Hyperuricemia (Chronic) Osteopenia determined by x-ray (Chronic) History of hepatitis C (Chronic) Hyponatremia (Chronic) Prostatic enlargement (Chronic) Urinary (tract) obstruction (Chronic) Iron deficiency (Chronic) Depression (Chronic) Alcoholism (Chronic) Peripheral neuropathy (Chronic) Autonomic neuropathy (Chronic) Lumbar spinal stenosis (Chronic) Hypertension (Chronic) Obstructive sleep apnea (Chronic) Syncope (Chronic) Essential (primary) hypertension (Chronic) Medical History: Medical History (Last Reviewed 06/24/20 @ 10:[address] Zeke Oliver MD) Syncope (Chronic) R55 Essential (primary) hypertension (Chronic) I10 Anemia D64.9 ETOH abuse F10.10 Fatty liver K76.0 Obstructive sleep apnea G47.33 Thrombocytopenia D69.6 Allergies No Known Allergies Allergy (Verified 06/24/20 09:33) Home Medications: Ambulatory Orders Medication Instructions Recorded Albuterol Inhaler [Ventolin Hfa] 2 puff INHALATION Q4H PRN PRN 05/07/20 Celecoxib [Celebrex] 100 mg PO BID #60 cap 05/26/20 Folic Acid 1 mg PO DAILY #30 tab 05/26/20 Gabapentin [Neurontin] 200 mg PO TID #180 cap 05/26/20 Midodrine HCl [Proamatine] 10 mg PO TID #90 tab 05/26/20 Sertraline HCl [Zoloft] 100 mg PO DAILY #30 tab 05/26/20 Thiamine Hydrochloride [Vitamin B1] 100 mg PO DAILY #30 tab 05/26/20 Atenolol [Tenormin (beta melody)] 12.5 mg PO QHS 06/18/20 Ferrous Sulfate 325 mg PO QHS 06/18/20 Surgical History: - - Colonoscopy. Psychiatric History: No pertinent psych hx Smoking Status: Never smoker Tobacco Use: Non-smoker - *Family History Maternal Family History: Family History (Last Reviewed 03/13/19 @ 15:57 by Anita Elizondo) Mother Heart disease Hypertension Father Hypertension History Items: No pertinent history Paternal Family History: Family History (Last Reviewed 03/13/19 @ 15:57 by Anita Elizondo) Mother Heart disease Hypertension Father Hypertension History Items: No pertinent history Review of Systems Constitutional: Denies: Chills, Fever, Weight Change HEENT: Denies: Head Aches, Sinus Congestion, Sinus Drainage Cardiovascular: Denies: Chest Pain, Palpitations Respiratory: Denies: Cough, Shortness of breath at rest, Sputum production Gastrointestinal: Denies: Abdominal Pain, Nausea, Vomiting Genitourinary: Denies: Dysuria Musculoskeletal: Denies: Joint Pain, Joint Tenderness Skin: Denies: Rash, Wounds Neurological: Denies: Numbness, Tingling, Focal weakness Psychiatric: Denies: Anxiety, Depression, Homicidal Ideations, Suicidal Ideations Hematologic/ Lymphatic: Denies: Easy Bruising, Easy Bleeding VTE Information - Inpt Only VTE Present on Admission: No - Physical Exam Vitals/I&O's: Vital Signs Temp Pulse Resp BP Pulse Ox 97.6 F L 63 16 187/94 H 100 06/24/20 09:39 06/24/20 09:39 06/24/20 09:39 06/24/20 09:39 06/24/20 09:39 Oxygen Delivery Method Room Air Weight: 75.9 kg Body Mass Index (BMI) 22.6 General: Alert, Oriented x3, Cooperative HEENT: Atraumatic, PERRLA, EOMI, Normocephalic Neck: Supple, No JVD, Negative Carotid Bruits Lungs: Clear to auscultation, Normal air movement Cardiovascular: Regular rate, No murmurs Abdomen: Bowel Sounds Present, Soft, Non Tender Extremities: No edema, Capillary Refill Less than 3 Seconds Skin: No rashes, No breakdown Musculoskeletal: No Tenderness to Palpation of Joints or Extremities Neurological: Cranial nerves II-XII grossly intact Psych/Mental Status: Normal Affect, Appropriate Current Medications Cefazolin Sodium 2 gm/ Sodium (Chloride) 110 mls @ 150 mls/hr IV PREOP ONE Stop: 06/24/20 14:18 Lactated Ringer's () 1,000 mls @ 100 mls/hr IV .Q10H O[place] Last Admin: 06/24/20 10:00 Dose: 100 mls/hr Documented by: Assessment/Plan All Active Problems (Last Updated 05/26/20 @ 12:[address] Mary Ann Truong, DO) BPH with obstruction/lower urinary tract symptoms (Acute) Lytic lesion of bone on x-ray (Acute) Thyroid nodule incidentally noted on imaging study (Acute) Torn ligament (Acute) Encephalopathy acute (Acute) Hypercalcemia (Acute) Urinary tract infection associated with indwelling urethral catheter (Acute) Thrombocytopenia (Resolved) Debility (Acute) Fall (Acute) SAH (subarachnoid hemorrhage) (Acute) IVH (intraventricular hemorrhage) (Acute) Dysphagia (Acute) Scalp hematoma (Acute) Closed T4 fracture (Acute) Closed T11 fracture (Acute) Closed L1 vertebral fracture (Acute) Closed L2 vertebral fracture (Acute) 69-year-old male who suffered a brain hemorrhage was in rehab for a long time is not on any blood thinners is not been able to void but he was found to have very obstructive prostate large median lobe thickened bladder he understands is possible that he may not be able to urinate after the procedure its possible that his retention of urine is due to neurological dysfunction of the bladder. He is willing to go through a transurethral resection of the prostate if resected prostate completely hopefully this alleviate the obstruction and blockage and hopefully he will be able to urinate spontaneously not need a catheter we also talked about the possibility he may need to do self intermittent catheterization.
--- NOTE | 2020-06-24 10:46 | PCM.DC.URO ---
Discharge Diet: Light diet - advance as tolerated Discharge Activity: May Not Drive, May Shower Call your doctor if your incision/area has: Continuous Slow Oozing, Sudden Increased Bleeding, Increased Pain/ Swelling, Increased Redness, Foul Smelling Discharge, Swelling at the incision site Call your doctor if you observe: Fever of 101 or Higher Suture Line Care: Avoid Pulling/Pushing, Avoid Pinching/Bending Instructions: Transurethral Resection of the Prostate (TURP): Home Recovery Allergies/Adverse Reactions: Allergies No Known Allergies Allergy (Verified 06/24/20 09:33) Medications to take at Discharge Albuterol Inhaler [Ventolin Hfa] 2 puff INHALATION Q4H PRN PRN 05/07/20 Celecoxib [Celebrex] 100 mg PO BID #60 cap 05/26/20 Folic Acid 1 mg PO DAILY #30 tab 05/26/20 Gabapentin [Neurontin] 200 mg PO TID #180 cap 05/26/20 Midodrine HCl [Proamatine] 10 mg PO TID #90 tab 05/26/20 Sertraline HCl [Zoloft] 100 mg PO DAILY #30 tab 05/26/20 Thiamine Hydrochloride [Vitamin B1] 100 mg PO DAILY #30 tab 05/26/20 Atenolol [Tenormin (beta melody)] 12.5 mg PO QHS 06/18/20 Ferrous Sulfate 325 mg PO QHS 06/18/20 Ciprofloxacin [Cipro] 500 mg PO BID #14 tab 06/24/20 The following prescriptions were given: Ciprofloxacin [Cipro] 500 mg PO BID #14 tab Transmission Status: Pending to [facility] Primary Care Physician: Onur Garcia MD [Primary Care Provider] - Test Results: Test results from this visit will be discussed in further detail at your follow-up appointment, if applicable. Please Follow Up With: Zeke Oliver MD When: in 2 weeks, please call to make an appointment. Proposed Discharge Date: 06/25/20
--- NOTE | 2020-06-24 10:55 | PROS_PTH ---
PATIENT: NIDIA HICKMAN LOC: [facility] [place] U#:[id number] AGE/SX: 69/M ROOM: RE06/24/[address]: Dr. Zeke Oliver MD : 1950 BED: DIS: 06/25/2020 SPEC #: [id number] RECD: 06/24/20 15:40 STATUS: JOSHUA BOZENA #: [id number] JOI: 06/24/20 10:[address]: Zeke Oliver DEPT: SURGICAL PATHOLOGY RECD BY: Vicenta Ayoub ENTERED: 06/25/20 07:14 SP TYPE: TURP OTHR DR: Dr. Onur Garcia MD Tissues: Prostate, NOS Procedures: Surgery Specimen Level IV HEADER OPERATION: Cysto, transurethral resection prostate, [employer] PRE-OP DIAGNOSIS: BPH with obstruction TISSUE SUBMITTED: Prostate fragments MICROSCOPIC DIAGNOSIS Prostate fragments, TUR: Benign prostatic hyperplasia, glandular and stromal type. Focal mild chronic inflammation. SJ:art 06/26/20 MICROSCOPIC DESCRIPTION Slides are reviewed. GROSS DESCRIPTION Received is one container labeled with the patient's name and designated prostate fragments. The specimen consists of multiple irregular fragments of pink-bernstein, rubbery, soft tissue that in aggregate weigh 9.4 gm and measure in aggregate 5 x 5 x 2 cm. The entire specimen is submitted in ten cassettes. / SOY:art 06/25/20 TC:5 CPT: 81286
[2020-06-24] MEDS: Cefazolin 2 GM in 0.9% Normal Saline 100 ML IV (11:12)
--- NOTE | 2020-06-24 11:51 | OP.PCM_ITS ---
Problem List (1) BPH with obstruction/lower urinary tract symptoms Status: Acute Report of Operation Date of Procedure: 06/24/20 Pre-Operative Diagnosis: BPH with obstruction retention of urine Post-Operative Diagnosis: The same Surgery/Procedure Performed:: Transurethral resection of the prostate Description of Surgical Findings:: 69-year-old male taken back to the operating room. After smooth induction of general anesthesia he was placed in dorsolithotomy position. The penis and testicles are prepped and draped in usual sterile fashion. Remove the existing catheter. Went into the bladder with a 26 Romansh continuous-flow resectoscope. On inspection the left and right ureter orifice were clear. There is no tumors within the bladder. The prostate had a very large median lobe and obstruction. A short length prostate. I then switched over the large loop and started resecting the prostate. I first marked out my resection site proximal to the verumontanum. And then resected the bladder neck. Resecting the median lobe. Resected back to the verumontanum. Resected the right lobe of the prostate. Resect the left lobe the prostate very carefully resected apical tissue. I then had a wide open channel from the verumontanum into the bladder. Cauterized for hemostasis. All the prostate chips were Ellik out of the bladder I then placed a 22 Romansh catheter into the bladder on continuous bladder irrigation. Prior to this I did a flow test he had a nice wide open flow with no obstruction. Urine was clear patient anesthetic was reversed taken back to PACU in good condition. Type of Anesthesia:: General Drains: 22fr 3 way - Admit VTE Documentation VTE Present on Admission: No VTE Mechan Device Prophylaxis: SCD's
[2020-06-24] MEDS: 0.9% Normal Saline 1,000 ML 125 ML IV (14:36)
[2020-06-24] MEDS: Gabapentin 100 MG Capsule 200 MG PO ×2 (14:37→21:46)
[2020-06-24] MEDS: Midodrine HCl 5 MG Tablet 10 MG PO ×2 (14:37→21:48)
[2020-06-24] MEDS: Ciprofloxacin 400 MG/200 ML BAG 200 MG IV (18:31)
[2020-06-24] MEDS: Atenolol 25 MG Tablet 12.5 MG PO (21:47)
[2020-06-24] MEDS: Docusate Sodium 100 MG Capsule PO (21:47)
[2020-06-25] VITALS (15 sets, daily range): BP systolic 143–189; BP diastolic 64–102; PULSE 72–749; RESP 16–18; TEMP 36.4–37.7; O2SAT 89–100
[2020-06-25] MEDS: 0.9% Normal Saline 1,000 ML 125 ML IV (00:09)
[2020-06-25] MEDS: Gabapentin 100 MG Capsule 200 MG PO ×3 (06:04→21:18)
[2020-06-25] MEDS: Midodrine HCl 5 MG Tablet 10 MG PO ×3 (06:04→21:18)
[2020-06-25 06:06] LABS: Hematocrit 22.3 % (40-54); Mean Corp Hgb Conc 31.4 g/dL (32-36); Mean Corpuscular Volume 98.7 fL (80-94); Mean Platelet Vol. 9.3 fl (6.2-12.0); Platelet Count 186 K/mm3 (150-450); RBC Distribution Width CV 15.6 % (11.6-14.6); RBC Distribution Width SD 56.5 fl (35.1-43.9); Red Blood Count 2.26 M/mm3 (4.6-6.2); White Blood Count 7.9 K/mm3 (4.4-11.0)
[2020-06-25] MEDS: Ciprofloxacin 400 MG/200 ML BAG 200 MG IV (06:09)
[2020-06-25 06:27] LABS: Anion Gap 5 (5-15); BUN 25 mg/dL (7-18); BUN/Creat Ratio 29.2 RATIO (10-20); Calcium,Total 8.4 mg/dL (8.5-10.1); Chloride 109 mmol/L (98-107); Creatinine, Serum 0.86 mg/dL (0.70-1.30); EST Glomerular Filtration Rate 95 mL/min (>60); Est Glom Filt Rate - Afr Amer 114 mL/min (>60); Estimated Creatinine Clearance 89.48 ml/min; Glucose 118 mg/dL (74-106); Potassium 4.4 mmol/L (3.5-5.1); Sodium Level 140 mmol/L (136-145)
[2020-06-25] MEDS: Pantoprazole Sodium 40 MG Tablet PO (08:03)
[2020-06-25] MEDS: Thiamine Hydrochloride 100 MG Tablet PO (08:03)
[2020-06-25] MEDS: Folic Acid 1 MG Tablet PO (08:04)
--- NOTE | 2020-06-25 08:17 | NURSING ---
denies goldman,eating breakfast.
[2020-06-25] MEDS: Atenolol 25 MG Tablet PO (08:49)
[2020-06-25] MEDS: Sertraline 100 MG Tablet PO (12:55)
--- NOTE | 2020-06-25 14:20 | PCM.CONS.GEN ---
Problem List (1) Hematuria Status: Acute Qualifiers: Hematuria type: unspecified type Qualified Code(s): R31.9 - Hematuria, unspecified (2) Acute blood loss anemia Status: Acute (3) BPH with obstruction/lower urinary tract symptoms Status: Acute (4) History of hepatitis C Status: Chronic (5) Prostatic enlargement Status: Chronic (6) Iron deficiency Status: Chronic (7) PTSD (post-traumatic stress disorder) Status: Suspected (8) Depression Status: Chronic Qualifiers: Depression Type: unspecified Qualified Code(s): F32.9 - Major depressive disorder, single episode, unspecified (9) Thrombocytopenia Status: Resolved (10) Alcoholism Status: Chronic (11) SAH (subarachnoid hemorrhage) Status: Resolved (12) IVH (intraventricular hemorrhage) Status: Resolved (13) Closed T4 fracture Status: Resolved Qualifiers: Encounter type: subsequent encounter Fracture morphology: unspecified fracture morphology (14) Closed T11 fracture Status: Resolved Qualifiers: Encounter type: subsequent encounter Fracture morphology: unspecified fracture morphology (15) Closed L1 vertebral fracture Status: Resolved Qualifiers: Encounter type: subsequent encounter Fracture morphology: unspecified fracture morphology (16) Closed L2 vertebral fracture Status: Resolved Qualifiers: Encounter type: subsequent encounter Fracture morphology: unspecified fracture morphology (17) Obstructive sleep apnea Status: Chronic Reason for Consult Date of Consultation: 06/25/20 Reason for Consultation: Medical consultation History of Present Illness: The patient is a 69 y/o M w/ PMHx: Hepatitis C without any treatment history, EtOH abuse hx sober since 04/2020, Chronic Anemia, Chronic thrombocytopenia, GASTON, HTN, Orthostatic Hypotension, Anxiety and Depression, Recent prolonged hospitalization secondary to vertebral and transverse process fx, SAH, IVH and ICH with no surgical intervention who presents to the [facility] on 06/24/20 as direction admission per Dr. Oliver with history of recurrent issues of BPH with obstruction and lower urinary tract symptoms noting that he had been in rehab following a recent hospitalization and while there had had a Rodney catheter which had eventually been discontinued with discharged home and over the last several weeks he started to have worsening difficulty voiding, frequency, inability to empty his bladder prompting evaluation per urology. Urology performed a transurethral resection of the prostate secondary to his ongoing issues as on cystoscopy patient had a notable large median lobe of the prostate causing the obstruction. Patient postoperatively with hemoglobin decreased to 7.0, previously 10.1 on 06/18/2020 receiving 2 unit PRBC per urology direction currently. Patient currently denies any pain. Patient with recent Rodney catheter discontinuation with ongoing evaluation to ascertain if recurrent placement will be necessitated. Past Medical History Past Medical History (Chronic Problems): Chronic Problems (Last Reviewed 06/24/20 @ 10:[address] Zeke Oliver MD) Hyperuricemia (Chronic) Osteopenia determined by x-ray (Chronic) History of hepatitis C (Chronic) Hyponatremia (Chronic) Prostatic enlargement (Chronic) Urinary (tract) obstruction (Chronic) Iron deficiency (Chronic) Depression (Chronic) Alcoholism (Chronic) Peripheral neuropathy (Chronic) Autonomic neuropathy (Chronic) Lumbar spinal stenosis (Chronic) Hypertension (Chronic) Obstructive sleep apnea (Chronic) Syncope (Chronic) Essential (primary) hypertension (Chronic) Medical History: Medical History (Last Reviewed 06/24/20 @ 10:[address] Zeke Oliver MD) Syncope (Chronic) R55 Essential (primary) hypertension (Chronic) I10 Anemia D64.9 ETOH abuse F10.10 Fatty liver K76.0 Obstructive sleep apnea G47.33 Thrombocytopenia D69.6 Allergies No Known Allergies Allergy (Verified 06/24/20 09:33) Home Medications: Ambulatory Orders Medication Instructions Recorded Albuterol Inhaler [Ventolin Hfa] 2 puff INHALATION Q4H PRN PRN 05/07/20 Celecoxib [Celebrex] 100 mg PO BID #60 cap 05/26/20 Folic Acid 1 mg PO DAILY #30 tab 05/26/20 Gabapentin [Neurontin] 200 mg PO TID #180 cap 05/26/20 Midodrine HCl [Proamatine] 10 mg PO TID #90 tab 05/26/20 Sertraline HCl [Zoloft] 100 mg PO DAILY #30 tab 05/26/20 Thiamine Hydrochloride [Vitamin B1] 100 mg PO DAILY #30 tab 05/26/20 Atenolol [Tenormin (beta melody)] 12.5 mg PO QHS 06/18/20 Ferrous Sulfate 325 mg PO QHS 06/18/20 Ciprofloxacin [Cipro] 500 mg PO BID #14 tab 06/24/20 Surgical History: - - Colonoscopy, recent TURP. Psychiatric History: No pertinent psych hx Lives: Spouse/ Significant Other Smoking Status: Never smoker Tobacco Use: Non-smoker Alcohol: Sober - Patient sober since 04/2020. Drugs: None - *Family History Maternal Family History: Family History (Last Reviewed 03/13/19 @ 15:57 by Anita Elizondo) Mother Heart disease Hypertension Father Hypertension History Items: Heart Disease, Hypertension Paternal Family History: Family History (Last Reviewed 03/13/19 @ 15:57 by Anita Elizondo) Mother Heart disease Hypertension Father Hypertension History Items: Hypertension Review of Systems Constitutional: Reports: Malaise, Weakness, Fatigue. Denies: Anorexia, Chills, Fever, Weight Change HEENT: Denies: Head Aches, Sinus Congestion, Sinus Drainage Cardiovascular: Denies: Chest Pain, Palpitations Respiratory: Denies: Cough, Shortness of breath at rest, Sputum production Gastrointestinal: Denies: Abdominal Pain, Nausea, Vomiting Genitourinary: Reports: Hematuria, Retention. Denies: Dysuria Musculoskeletal: Reports: Back Pain, Joint Pain, Muscle pain. Denies: Joint Tenderness Skin: Denies: Rash, Wounds Neurological: Denies: Numbness, Tingling, Focal weakness Psychiatric: Denies: Anxiety, Depression, Homicidal Ideations, Suicidal Ideations Hematologic/ Lymphatic: Reports: Anemia, Easy Bruising, Easy Bleeding Patient Problems: Active and Suspected Problems (Last Reviewed 06/24/20 @ 10:[address] Zeke Oliver MD) BPH with obstruction/lower urinary tract symptoms (Acute) Hematuria (Acute) Acute blood loss anemia (Acute) PTSD (post-traumatic stress disorder) (Suspected) Subjective: Patient seated upright in the medical surgical bed, no acute distress, recent Rodney catheter discontinuation approximately 1 hour prior with minimal urine output since noted to be significantly bright red. Objective: Physical Examination: General: awake, alert, oriented x 3 and cooperative, seated upright in the medical surgical bed, no acute distress. Skin: normal color, turgor, no icterus, cyanosis. HEENT: AT/NC, EOMI, PERRLA, mildly dry MM, no carotid bruits or JVD noted. Lungs: CTA bilaterally, moderate effort, moderate decrease BL bases, no rales, ronchi or wheezing. Heart: Regular rate and rhythm; no gallop, rub audible. Abdomen: soft, mild suprapubic tenderness palpation otherwise nontender, ND, normal BS, + HM. Extremities: no cyanosis, clubbing, or edema. Neurological: patient awake, alert, oriented x 3; cognitive function intact; pupils equally reactive to light and accomodation; cranial nerves II-XII grossly normal, moving all 4 extremities, no focal deficits, strength moderately global decrease secondary to recent surgical intervention. Psychiatric: affect appears mildly fatigued otherwise normal, no acute evidence of depressive or anxiety feelings. - Physical Exam Vitals/I&O's: Vital Signs Temp Pulse Resp BP Pulse Ox 97.6 F L 749 H 18 161/90 H 100 06/25/20 13:06 06/25/20 13:06 06/25/20 13:06 06/25/20 13:06 06/25/20 13:06 Oxygen Delivery Method Room Air Weight: 167 lb 5.294 oz Body Mass Index (BMI) 22.6 Intake and Output for Last 24 Hours 06/23/20 06/24/20 06/25/20 23:59 23:59 23:59 Intake Total 770 / 770 2300 / 2300 Output Total 2900 / 2900 2650 / 2650 Balance -2130 / -2130 -350 / -350 Laboratory Results 06/25/20 05:30: WBC 7.9, RBC 2.26 L, Hgb 7.0 L, Hct 22.3 L, MCV 98.7 H, MCH 31.0, MCHC 31.4 L, RDW Std Deviation 56.5 H, RDW Coeff of [place] 15.6 H, Plt Count 186, MPV 9.3 06/25/20 05:30: Sodium 140, Potassium 4.4, Chloride 109 H, Carbon Dioxide 26.0, Anion Gap 5, BUN 25 H, Creatinine 0.86, Estim Creat Clear Calc 89.48, Est GFR (MDRD) Af Amer 114, Est GFR (MDRD) Non-Af 95, BUN/Creatinine Ratio 29.2 H, Glucose 118 H, Calcium 8.4 L 06/25/20 09:00: Blood Type O POSITIVE, Antibody Screen NEGATIVE, Crossmatch See Detail Current Medications Acetaminophen (Acetaminophen 325 Mg Tablet) 325 mg PO Q4H PRN PRN PRN Reason: Pain Score 1-10 Al Hydroxide/Mg Hydroxide (Mag Hydrox/Al Hydrox/Simeth 30 Ml Udc) 30 ml PO Q4H PRN PRN PRN Reason: Heartburn Albuterol Sulfate (Albuterol 2.5 Mg/3 Ml Vial.Neb.) 2.5 mg INHALATION Q4H PRN PRN PRN Reason: wheezing/SOB Atenolol (Atenolol 25 Mg Tablet) 12.5 mg PO QHS [facility] Last Admin: 06/24/20 21:47 Dose: 12.5 mg Documented by: Belladonna Alkaloids/Opium (Opium/Belladonna Alkaloids 60 Mg/15 Mg Suppository) 60 mg RECTAL Q6H PRN PRN PRN Reason: Spasm Docusate Sodium (Docusate Sodium 100 Mg Capsule) 100 mg PO BID [facility] Last Admin: 06/25/20 08:10 Dose: Not Given Documented by: Folic Acid (F[facility] Acid 1 Mg Tablet) [facility] Admin: 06/25/20 08:04 Dose: 1 mg Documented by: Furosemide (Furosemide 20 Mg/2 Ml Vial) 10 mg IV DAILY [facility] Gabapentin (Gabapentin 100 Mg Capsule) 200 mg PO TID [facility] Last Admin: 06/25/20 06:04 Dose: 200 mg Documented by: Sodium Chloride () 1,000 mls @ 125 mls/hr IV .Q8H [facility] Last Admin: 06/25/20 12:57 Dose: Not Given Documented by: Sodium Chloride () 250 mls @ 15 mls/hr IV .[id number] PRN PRN Reason: Saline Flush Sodium Chloride () 250 mls @ 15 mls/hr IV .[id number] PRN PRN Reason: Additional IVPB Infusion Midodrine (Midodrine Hcl 5 Mg Tablet) 10 mg PO TID [facility] Last Admin: 06/25/20 06:04 Dose: 10 mg Documented by: Ondansetron HCl (Ondansetron 4 Mg/2 Ml Vial) 4 mg IV Q6H PRN PRN PRN Reason: Nausea Oxycodone HCl (Oxycodone 5 Mg Tablet) 5 mg PO Q4H PRN PRN PRN Reason: Pain Score 1-10 Pantoprazole Sodium (Pantoprazole Sodium 40 Mg Tablet) 40 mg PO DAILY [facility] Last Admin: 06/25/20 08:03 Dose: 40 mg Documented by: Sertraline HCl (Sertraline 100 Mg Tablet) 100 mg PO DAILY [facility] Last Admin: 06/25/20 12:55 Dose: 100 mg Documented by: Sodium Chloride (0.9% Saline Lock 10 Ml Syringe) 10 - 40 ml IV UD PRN PRN Reason: SALINE FLUSH Thiamine HCl (Thiamine Hydrochloride 100 Mg Tablet) 100 mg PO DAILY [facility] Last Admin: 06/25/20 08:03 Dose: 100 mg Documented by: Tolterodine Tartrate (Tolterodine Tartrate 4 Mg Cap.Sa) 4 mg PO DAILY PRN PRN PRN Reason: Spasms Assessment/Plan All Active Problems (Last Reviewed 06/24/20 @ 10:[address] Zeke Oliver MD) BPH with obstruction/lower urinary tract symptoms (Acute) Hematuria (Acute) Acute blood loss anemia (Acute) Lytic lesion of bone on x-ray (Acute) Thyroid nodule incidentally noted on imaging study (Acute) Torn ligament (Acute) Encephalopathy acute (Acute) Hypercalcemia (Acute) Urinary tract infection associated with indwelling urethral catheter (Acute) Thrombocytopenia (Resolved) Debility (Acute) Fall (Acute) Dysphagia (Acute) Scalp hematoma (Acute) Closed T11 fracture (Resolved) Closed L1 vertebral fracture (Resolved) Closed L2 vertebral fracture (Resolved) Closed T4 fracture (Resolved) IVH (intraventricular hemorrhage) (Resolved) SAH (subarachnoid hemorrhage) (Resolved) The patient is a 69 y/o M w/ PMHx: Hepatitis C without any treatment history, EtOH abuse hx sober since 04/2020, Chronic Anemia, Chronic thrombocytopenia, GASTON, HTN, Orthostatic Hypotension, Anxiety and Depression, Recent prolonged hospitalization secondary to vertebral and transverse process fx, SAH, IVH and ICH with no surgical intervention who presents to the [facility] on 06/24/20 as direction admission per Dr. Oliver with history of recurrent issues of BPH with obstruction and lower urinary tract symptoms. 1. BPH w/ UTI Symptoms: Patient admitted to medical surgical floor per urology, underwent TURP with postoperative complication of blood requirement, currently receiving 2 unit, recent Rodney catheter discontinuation per urology discretion with continued close monitoring, if recurrent retention with clots may necessitate resumption of catheter with patient noting specifically preference for the catheter type with Velcro leg closure method. 2. Acute Blood Loss Anemia on Chronic secondary to hematuria: Patient status post TURP, hemoglobin following decreased from a recent 10.1-7.0, 2 unit PRBC currently being administered per urology with their intention to administer Lasix in between, additionally Rodney catheter recently removed, encourage continued close monitoring in case patient with recurrent clotting and retention, expect repeat hemoglobin levels following per surgery discretion. 3. History of longstanding alcohol abuse: Patient notes sobriety since 04/2020 following prolonged admission and care secondary to trauma. Encouraged continued safe sobriety. 4. History of hepatitis C, untreated: Patient with longstanding history never having received treatment secondary to alcohol abuse history, if continued sober status for greater than 6 months with documented meetings attended may be appropriate for treatment. 5. Recent trauma with transverse process fractures as well as vertebral fractures, SAH, IVH, ICH: Patient never had any craniotomy, initiated per neurology on propranolol and Provigil at that time, encouraged continued therapy. 6. Orthostatic hypotension: We will continue patient home midodrine regimen. 7. Anxiety and depression/PTSD: We will continue recently initiated sertraline. 8. GASTON: We will order CPAP and encourage usage. 9. DVT prophylaxis: SCDs, defer chemoprophylaxis expected given hematuria and recent surgical intervention. Inpatient E&M: [id number] [facility] L3
[2020-06-25 15:03] LABS: Magnesium 1.5 mg/dL (1.6-2.6); Phosphorus 3.4 mg/dL (2.5-4.9)
[2020-06-25] MEDS: Furosemide 20 MG/2 ML VIAL 10 MG IV (15:32)
[2020-06-25] MEDS: 0.9% Saline Lock 10 ML Syringe IV ×2 (15:33→18:58)
[2020-06-25] MEDS: hydrALAZINE 25 MG Tablet PO (18:10)
[2020-06-25 19:24] LABS: Hematocrit 28.5 % (40-54); Hemoglobin 9.3 g/dL (13.0-16.5)
[2020-06-25] MEDS: Docusate Sodium 100 MG Capsule PO (21:18)
[2020-06-25] MEDS: Atenolol 25 MG Tablet 12.5 MG PO (21:18)
== END 2020-06-25 21:38 | disposition home or self-care (01) ==
LOC: SDC 08:57 → AC 08:58 → MS3 06-29 08:52
PROVIDERS: Anesthesiology; Family Medicine; PCP Family Medicine; Referring Provider Urology; Visit Provider Urology
PROC: 0VT08ZZ Resection of Prostate, Via Natural or Artificial Opening Endoscopic (ICD-10-PCS; CPT 52601; principal; 2020-06-24 10:45)
DX: N40.1 Benign prostatic hyperplasia with lower urinary tract symptoms (principal); N13.8 Other obstructive and reflux uropathy; R33.8 Other retention of urine; R35.0 Frequency of micturition; R35.1 Nocturia; N32.89 Other specified disorders of bladder; R39.12 Poor urinary stream; Z20.828 Contact with and (suspected) exposure to other viral communicable diseases; I10 Essential (primary) hypertension; J45.909 Unspecified asthma, uncomplicated; G47.33 Obstructive sleep apnea (adult) (pediatric); F32.9 Major depressive disorder, single episode, unspecified; F10.21 Alcohol dependence, in remission; Z79.899 Other long term (current) drug therapy; Z79.1 Long term (current) use of non-steroidal anti-inflammatories (NSAID)
CPT/HCPCS: 00914; 52601; 36415; 80048; 80076; 83735; 84100; 85014; 85018; 85027; 85610; 85730; 86850; 86900; 86901; 86920; 86922; 87635; 88305; 94762; 99251; C9803; J7030; J7040; J7120; P9016; A4216; G0463; J0744; J1940; J2405; U0003

== ENCOUNTER → 2020-07-06 12:17 | Outpatient (CLI) | payer MEDICARE, BC, SELFPAY ==
[2020-06-24 14:25] VITALS: BMI 22.6
== END ==
PROVIDERS: PCP Family Medicine; Referring Provider Internal Medicine Hematology & Oncology; Visit Provider Internal Medicine Hematology & Oncology
DX: C90.00 Multiple myeloma not having achieved remission (principal)
CPT/HCPCS: 86850; 86900; 86901

== ENCOUNTER 2020-07-30 12:20 | Emergency (ER) | payer MEDICARE, BC, SELFPAY ==
[2020-06-24 14:25] VITALS: BMI 22.6
[2020-07-30 12:23] VITALS: BP 135/75; PULSE 63; RESP 15; TEMP 36.3; O2SAT 100; BMI 24.5
[2020-07-30 12:26] VITALS: BP 135/75; PULSE 63; RESP 15; TEMP 36.3; O2SAT 100
--- NOTE | 2020-07-30 12:44 | RAD_ITS ---
STUDY: X-RAY - LEFT FOOT CLINICAL: Male, 69 years old. Redness and swelling. TECHNIQUE: 3 view(s) of the foot. COMPARISON: None. FINDINGS: There is an enthesophyte involving the posterior superior calcaneus at the site of insertion of the Achilles tendon. Normal visualized subtalar, talonavicular, calcaneocuboid, tarsal and tarsometatarsal articulations. Normal metatarsi. There is degenerative arthrosis of the metatarsophalangeal joint of the hallux with a hallux valgus deformity. Normal tibial and fibular sesamoid bones. Normal interphalangeal joint of the great toe. Normal phalanges of the great toe. Normal second through fifth metatarsophalangeal joints. There is Hammer toe deformity of the second through fifth toes. There is soft tissue swelling of the first metatarsophalangeal joint. RAD/Foot min 3 Views IMPRESSION: Hallux valgus deformity. Soft tissue swelling of the first metatarsophalangeal joint. Electronically Signed: Santos Dawkins MD at 14:01 EST Tel , Service support ,
[2020-07-30 13:51] LABS: Erythrocyte Sedimentation Rate 15 mm/hr (0-20)
[2020-07-30 13:53] LABS: Absolute Lymphocyte Count 0.81 X10^3/uL (0.83-4.51); Absolute Neutrophil Count 2.1 X10^3/uL (2.0-7.7); Basophil# 0.02 X10^3/uL; Basophil% 0.5 % (0-1); Eosinophils% 10.6 % (0-5); Hematocrit 27.2 % (40-54); Hemoglobin 8.6 g/dL (13.0-16.5); Lymphocyte # 0.81 X10^3/ul (4.0); Lymphocyte % 21.4 % (19-41); Mean Corp Hgb Conc 31.6 g/dL (32-36); Mean Corpuscular Hgb 29.4 pg (27.0-32.0); Mean Corpuscular Volume 92.8 fL (80-94); Mean Platelet Vol. 10.7 fl (6.2-12.0); Monocyte# 0.41 X10^3/uL; Monocyte% 10.8 % (0-10); NRBC Flagged by Analyzer 0 % (0-5); Neutrophil # 2.13 X10^3/uL (2.7-7.7); Neutrophil % 56.2 % (47-70); Platelet Count 206 K/mm3 (150-450); RBC Distribution Width SD 54.7 fl (35.1-43.9); Red Blood Count 2.93 M/mm3 (4.6-6.2); White Blood Count 3.8 K/mm3 (4.4-11.0)
--- NOTE | 2020-07-30 13:58 | ED.VIS.LOWEX ---
History of Present Illness Chief Complaint: Wound Check Narrative: Patient presenting for evaluation due to concern for a left foot infection. Patient has an underlying history of multiple myeloma, and is receiving chemotherapy treatments. Patient's last chemotherapy was on Monday last week. Patient of the course of the last couple of days has developed some pain and redness and swelling of the left foot. He has an underlying history of bunions, but states that there is redness and bogginess over the medial portion of his left foot bunion. He denies constitutional symptoms such as fever nausea vomiting diarrhea. Patient does tell me that he had a history of being neutropenic with his treatments in the past. Review of systems otherwise negative. Past Medical History - Allergies and Home Meds Allergies/Adverse Reactions: Allergies No Known Allergies Allergy (Verified 07/30/20 12:23) Primary Care Physician: Onur Garcia MD [Primary Care Provider] - Prior records reviewed: Yes Past Medical History: - - Multiple myeloma, neuropathy Surgical History: - - Colonoscopy, recent TURP. Smoking Status: Never smoker Drugs: None - Family History Maternal Family History: Family History (Last Reviewed 03/13/19 @ 15:57 by Anita Elizondo) Mother Heart disease Hypertension Father Hypertension Family History: Reports: Heart Disease, Hypertension Paternal Family History: Family History (Last Reviewed 03/13/19 @ 15:57 by Anita Elizondo) Mother Heart disease Hypertension Father Hypertension Family History: Reports: Hypertension Review of Systems All systems negative except as indicated General: Denies: Chills, Fever, Sweats Eyes: Denies: Visual changes - bilaterally, Diplopia ENT: Denies: Rhinorrhea, Sore throat Cardiovascular: Denies: Chest pain, Palpitations Respiratory: Denies: Dyspnea, Cough, Dyspnea on exertion Gastrointestinal: Denies: Abdominal pain, Nausea, Vomiting, Diarrhea, Melena, Hematochezia Genitourinary: Denies: Dysuria, Hematuria, Frequency Musculoskeletal: Reports: Extremity Pain Skin: Reports: Rash Neurological: Denies: Headache, Weakness, Numbness Physical Exam Vital Signs/Narrative: Vital Signs Temp Pulse Resp BP Pulse Ox 07/30/20 12:26 97.3 F L 63 15 135/75 H 100 07/30/20 12:23 97.3 F L 63 15 135/75 H 100 Inital Vital Signs reviewed: Yes - Extremity Exam Left Foot: - - Examination the patient's left foot shows bunion, over the medial portion of this there is a area of erythema and bogginess that is somewhat warm to palpation. No evidence of short arc joint pain. No apparent lymphangitic streaking. Patient does seem to have a mild amount asymmetric swelling General: Well nourished, Well developed Head: Normocephalic, Atraumatic Eyes: Perrl, EOMI ENT: No Trauma, Moist Mucous Membranes Cardiovascular: Regular rate, Regular rhythm, No murmurs Respiratory: No distress, CTA bilaterally, - - Anterior chest port is noted Abdomen: Soft, Nontender, Nondistended, Normal bowel sounds Skin: Normal color Neurological: Alert, Oriented x3, Cranial nerves II-XII grossly intact, Normal Strength, Normal Sensation Psychological: Normal affect Diagnostic/Tx/Re-eval Clinical Impression(s) from Imaging Studies Foot X-Ray 07/30/20 12:44 IMPRESSION: Hallux valgus deformity. Soft tissue swelling of the first metatarsophalangeal joint. Electronically Signed: Santos Dawkins MD at 14:01 EST Tel , Service support , Laboratory Data 07/30/20 07/30/20 13:40 13:40 WBC 3.8 L RBC 2.93 L Hgb 8.6 L Hct 27.2 L MCV 92.8 MCH 29.4 MCHC 31.6 L RDW Std Deviation 54.7 H RDW Coeff of [place] 16.0 H Plt Count 206 MPV 10.7 Immature Gran % (Auto) 0.500 Neut % (Auto) 56.2 Lymph % (Auto) 21.4 [place] % (Auto) 10.8 H Eos % (Auto) 10.6 H Baso % (Auto) 0.5 Absolute Neuts (auto) 2.1 Absolute Lymphs (auto) 0.81 L Nucleated RBC % 0 ESR 15 Sodium 141 Potassium 3.7 Chloride 112 H Carbon Dioxide 25.0 Anion Gap 4 L BUN 20 H Creatinine 0.73 Estim Creat Clear Calc 78.68 Est GFR (MDRD) Af Amer 137 Est GFR (MDRD) Non-Af 113 BUN/Creatinine Ratio 27.3 H Glucose 79 Calcium 8.0 L C-React Prot Ext Range 19.80 H - Medical Decision Making Patient presented due to concern for a foot infection. X-ray was obtained and by my personal review as well as radiology demonstrates soft tissue swelling but no evidence of lytic lesions. Lab work was obtained on the patient, white blood cell count was 3 which is low, but the patient does not have evidence of neutropenia. He has chronic stable anemia. Chemistry was unremarkable, CRP was found to be somewhat elevated. At this point I do not feel comfortable with aspirating or incising and draining this given the patient's underlying cancer history, fact that he has neuropathy, and also the fact that he is on chemotherapy. Patient was given a dose of doxycycline in the emergency department. He will be discharged with a course of the same. I did contact podiatry, Dr. Yeung, who agrees to see the patient in follow-up. Patient was discharged in stable condition. ED Disposition - Plan for ED Patient: Disposition: Home or Assisted Living Diagnosis: Cellulitis of left foot Instructions: ED Cellulitis Prescriptions: Doxycycline 100 mg PO BID #20 cap Prescription Printed Referrals: Roland Saleh DPM [STAFF PHYSICIAN] - As soon as possible
[2020-07-30 14:01] LABS: Anion Gap 4 (5-15); BUN 20 mg/dL (7-18); BUN/Creat Ratio 27.3 RATIO (10-20); Chloride 112 mmol/L (98-107); Creatinine, Serum 0.73 mg/dL (0.70-1.30); EST Glomerular Filtration Rate 113 mL/min (>60); Est Glom Filt Rate - Afr Amer 137 mL/min (>60); Estimated Creatinine Clearance 78.68 ml/min; Glucose 79 mg/dL (74-106); Potassium 3.7 mmol/L (3.5-5.1); Sodium Level 141 mmol/L (136-145)
[2020-07-30 14:39] VITALS: RESP 16
[2020-07-30 15:20] LABS: Uric Acid 6.2 mg/dL (3.5-7.2)
[2020-07-30 16:15] VITALS: BP 156/91; PULSE 73; RESP 18
== END 2020-07-30 16:23 | disposition home or self-care (01) ==
PROVIDERS: Podiatrist; Emergency Provider Emergency Medicine; PCP Family Medicine
DX: L03.116 Cellulitis of left lower limb (principal); M20.12 Hallux valgus (acquired), left foot; M21.612 Bunion of left foot; G62.9 Polyneuropathy, unspecified; C90.00 Multiple myeloma not having achieved remission; Z79.899 Other long term (current) drug therapy
CPT/HCPCS: 73630; 80048; 84550; 85025; 85652; 86140; 96365; 96366; 99283; J7050; A4216

== ENCOUNTER → 2020-08-03 | Outpatient (CLI) | payer MEDICARE, BC, SELFPAY ==
[2020-07-30 12:23] VITALS: BMI 24.5
[2020-08-03 19:04] LABS: CRYSTALS, BODY FLUID MONOSODIUM URATE
[2020-08-03 19:05] LABS: Source- Body Fluid SYNOVIAL
[2020-08-03 19:59] LABS: M R Staph aureus DNA By PCR Negative (Negative); Probe Check PASS; Specimen Processing Control PASS; Staph aureus DNA By PCR NEGATIVE (Negative)
[2020-08-04 12:57] LABS: Pathologist Review Reviewed
== END | disposition home or self-care (01) ==
LOC: LABSPEC 15:16
PROVIDERS: PCP Family Medicine; Visit Provider Podiatrist
DX: M10.9 Gout, unspecified (principal); L03.90 Cellulitis, unspecified
CPT/HCPCS: 87070; 87075; 87205; 87640; 89060

== ENCOUNTER 2020-09-21 11:00 | Outpatient (RCR) | payer MEDICARE, BC, SELFPAY ==
[2020-05-07 15:50] VITALS: BMI 24.9
--- NOTE | 2020-06-05 14:59 | HP.PTEVAL_ITS ---
Patient's Visit Information NIDIA HICKMAN is a 69 year old M referred to Physical Therapy by Dr. Onur Garcia MD with a diagnosis of SAH, vertebral fx.. Date of Evaluation: 06/05/20 Physical Therapist: iSva Covington, TREYT, OCS, CSCS - Visit Plan Frequency: 3x /Week Duration: 4-6 Weeks Plan: 3x/week for 3-6 weeks for. 1. Fw weight shifting ex adn functionally on steps and chair. 2. LE strength hips and knees ankles and functional. 3. Gait training. 4.strech upper legs quads and HS and gastroc - Subjective Passed out adn fell in hallway and split head open and got brain bleeds and fluid on the brain. That was around April 17. Passed out because blood pressure plummets and that caused him to pass out adn fall. Taken to [facility] and slept for 6 days deliriously. Prior to fall was doing OK, but has had problems with passing out in the past. Spent 6 weeks in hospital and to rehab unit in [place]. Got out of there last Monday. Took care of bood pressure problem with meds. Not passing out anymore. Also had multiple vertebral fractures pt says from previous falls, will heal on its own. Since fall calves are really weak and needs walker or cane. Used cane today for shorter distances. Gets pain and self catherizes which helps. Cannot always pee naturally. Hard to get off toilet due to weakness. crawled back to bedroom the other day from toilet. Sleep is OK except fro bladder problems. Other pain is not an issue, moving R elbow soemtimes hurts, x rays shows mottled joints in elbows and shoulders. Will have bone biopsy to r/o bone CA. Only hurts to reach up [facility]. Dresses self for most part. Showers self, bathroom alone for the most part outside of toilet transfer. Has shower chair. Spends alot of day on couch. Exercises from rehab getting done daily(walking, leg lifts, counter exercises like squats at walker. Hobbies. 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 Wants to play golf. Has numbness in fingers R, cast on R arm. Will get off in a couple weeks after bone specialist. Has alot of steps at home adn is doing them carefully, has 2 rails. Rec room in basement. Steps all over house though. - Pain bladder Pain Intensity (Out of 10): 9 Pain Intensity Range: 9 - Objective A&Ox 3 name, day, date, place. Posture is forward head and elevated scap with flat lordosis. Pt stands with decent posture but weight stays through posterior hindfoot. Tends bw in balance when ec. Ankle strength 3+/5 in allmotions and decent coordination with reciprocal toe tapping. Sensation in feet and ankles diminished to gross light touch. Knee AROM WFL and strength 4-/5, Hip aROM WFL and strength abd 3+, ext 3, adduction 4, flexion 4- B. Reflexes 2/3 patella and achilles without clonus. Nees a seecond upons stnding to get balance but otherwise walks without AD on firm flat surface for FGA today. With cane ambulates safely in and out of clinic. Trasnfers chair with multpile attempts due to poor FW weight shift and weakness in hips. steps are reciprocal but needs two railings and pulls with UE avoiding FW weight shift. - Balance Scores Functional Gait Assessment Score: 21 % Disability: 30.0000 - Goals Goal 1:: Trasnfer out of chair in one attempt with one UE Goal Time Frame: 4-6 Weeks Goal 2:: Steps with one rail reciprocally safely Goal Time Frame: 4-6 Weeks Goal 3:: Walk with 24/30 FGA safely Goal Time Frame: 4-6 Weeks Goal 4:: Pt feel 75% back to normal activity and safety Goal Time Frame: 4-6 Weeks - Rehabilitation Potential Physical Therapy Diagnosis: Imablance and strength deficits Rehabilitation Potential: Fair - Anticipated Interventions Patient/Client Instruction: Educate patient on: Condition, Plan of Care For the Purpose of:: To improve muscle performance and motor function, To increase tolerance to activity/condition/position, To improve ability of physical actions for home/community/work/leisure Therapeutic Exercise to Include: Strength training, Balance training, Postural training, Flexibilty training, Gait and locomotor training, Neuromotor development For the Purpose of:: To improve muscle performance and motor function, To increase tolerance to activity/condition/position, To improve ability of physical actions for home/community/work/leisure, To improve gait and locomotor functions, To improve safety Thank you for the opportunity to evaluate your patient. For Medicare and Medicare HMO plans, please review the plan of care and approve it. It will need to be FAXED BACK to us at [phone] for Medicare purposes. For Medicare only, by signing this I certify the plan of care. Please let me know if there are questions or concerns regarding this plan of care. Physician Signature: Date:
--- NOTE | 2020-06-08 15:00 | SOAP_ITS ---
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 The Patient was able to detail some events leading to his syncopal episode on 04/12/2020, though the majority of details were gleaned from review of his chart during his recent rehabilitation unit admission. The Patient reportedly fell while getting up from his couch, and fell (does not remember what precipitated the fall) hitting head on concrete floor, losing consciousness for ~ 3 minutes. He initially presented to [facility], though was transferred to [facility] ([facility]) for a neurosurgery consult. His course at [facility] was complicated by alcohol withdraw and encephalopathy with persistent agitation, confusion, and combativeness detailed throughout his stay, with the Patient undergoing 2 modified barium swallow studies and briefly requiring supplemental feeding via Corpack (removed prior to discharge). He was later admitted to [facility] In[facility] Unit on 05/07/2020, with his initial admission again complicated by persistent agitation, confusion, and combativeness. He was started on sertraline for depression, suspected PTSD and for orthostasis. He demonstrated improved alertness over the latter portions of the admission, and was eventually advanced to a mechanical soft, thin liquid diet. He has since self-advanced to a regular textured diet. He was discharged home on 05/26/2020 with recommendations to follow up with neurology (Dr. Ramos), oncology due to suspected multiple myeloma (Dr. Brunson), psychotherapy to deal with depression/PTSD, and [facility] for alcohol dependence in addition to recommendations for outpatient speech, occupational, and physical therapies. The Patient denies any overt signs and symptoms of aspiration, denies sensations of bolus stasis, and denies sensation of nasopharyngeal reflux. He denies any unintentional weight loss; denies any issues with appetite or early satiety (feeling full after few bites); denies issues with nausea / emesis; denies issues with hypogeusia (reduced taste), dysgeusia (abnormal / unpleasant taste), ageusia (absence of taste), or hyposmia (reduced smell); denies issues with xerostomia (dry mouth); denies issues with diurnal sialorrhea (drooling during the daytime); denies any symptoms associate with trismus; denies odynophagia (pain during swallow); denies issues with reflux / heartburn, globus sensation, post prandial substernal discomfort, or feelings of bolus stasis; denies any suboptimal intake behaviors (tachyphagia, bolus bolting, or aerophagia); and denies any current or previous issues with aspiration related pulmonary complications, to include pneumonia, bronchitis, or unexplained asthma symptoms; He does appear to have issues with cognitive functioning during the assessment, giving incorrect dates and at times biographical information (for example stating several different ages), and appears somewhat detached / emotionally blunted (was quite pleasant to work with throughout); though he does not appear to appreciate these deficits (anosognosia?). he was notably treated in the emergency department on 06/06/2020 secondary to a urinary tract infection following removal of his Rodney catheter 1 week prior. The Patient is ambulatory with the use of assistive devices (walking cane), though demonstrated inconsistent use, and nearly fell on two occasions during ambulation to and from the therapy room; he has no difficulties with posture maintenance. He currently reports needing little to no assistance with ADL?s and IADL?s, though this is questionable and needs verified with his family. He does report he does not currently drive. 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, intraventricular hemorrhage of the left lateral ventricle, and a subarachnoid hemorrhage along the left side of the brainstem; encephalopathy status post traumatic brain injury, syncopal episode resulting in a mechanical fall, alcohol abuse, dysphagia, urinary tract infection associated with indwelling urethral catheter, obstructive uropathy with urine retention, hyperuricemia, anemia requiring blood transfusion, thrombocytopenia, iron deficiency, hypercalcemia, hyponatremia, stage I diastolic dysfunction, hypertension, severe orthostatic hypotension, depression, probable post-traumatic stress disorder, obstructive sleep apnea, diverticulosis, untreated hepatitis C, generative disc disease at C3-4 and C4-5, closed T4, T11, and T12 vertebral fractures, closed L1 and L2 transverse process fractures, lumbar spinal stenosis, neuropathy of left lower extremity, torn ligament of the right hand, lytic lesion of bone on x-ray, thyroid nodule incidentally noted on imaging study (2 cm). CURRENT MEDICATIONS: Amox/Clavulanate Tablet [Augmentin Tablet] 875 mg PO BIDCM #3 tab Atenolol [Tenormin (beta melody)] 12.5 mg PO DAILY #16 tab Celecoxib [Celebrex] 100 mg PO BID #60 cap Gabapentin [Neurontin] 200 mg PO TID #180 cap Midodrine HCl [Proamatine] 10 mg PO TID #90 tab Sertraline HCl [Zoloft] 100 mg PO DAILY #30 tab Albuterol Inhaler [Ventolin Hfa] 2 puff INHALATION Q4H PRN Acetaminophen [Tylenol] 650 mg PO Q6H PRN Ascorbic Acid [Vitamin C] 500 mg PO DAILY@1200 tab Cholecalciferol (VIT D3) [Vitamin D3] 1,000 unit PO DAILY #30 tab Ferrous Sulfate 325 mg PO DAILY@1200 #30 tab Multivit with Iron,Minerals 1 tab PO DAILY Magnesium 500 mg PO BID #60 tab Thiamine Hydrochloride [Vitamin B1] 100 mg PO DAILY #30 tab Folic Acid 1 mg PO DAILY #30 tab PREVIOUS MODIFIED BARIUM SWALLOW STUDY: 04/28/2020 MBS at [facility] appeared to suggest severe oropharyngeal dysphagia; limited relevant diagnostic information available during rehabilitation admission at time of assessment. 05/04/2020 MBS at [facility] appears to suggest moderate to severe oropharyngeal dysphagia with aspiration of thin and pureed textures; limited relevant diagnostic information available during rehabilitation admission at time of assessment. 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 10 (EAT-10): EAT-10 TOTAL SCORE: 1 EAT-10 INTERPRETATION: unremarkable; a score of 3+ may represent swallowing problems. ORAL MOTOR / MODIFIED CRANIAL NERVE ASSESSMENT: TRIGEMINAL NERVE (CNV): appears grossly intact FACIAL NERVE (CNVII): appears grossly intact GLOSSOPHARYNGEAL NERVE (CNIX): appears grossly intact VAGUS NERVE (CNX): appears grossly intact HYPOGLOSSAL NERVE (CNXII): appears grossly intact ORAL AND PALATAL STRUCTURES: grossly intact; non impacting mandibular [place] identified DENTITION: natural dentition in sufficient repair; prior restorative work completed SALIVATION: appropriate salivary management and production COUGH SUFFICIENCY: appropriate volitional cough intensity VOCAL QUALITY: no clinically significant vocal abnormalities observed ORAL MOTOR / MODIFIED CRANIAL NERVE ASSESSMENT(QUANTITATIVE): ORAL HEALTH ASSESSMENT TOOL (OHAT): LIPS: CATEGORY: 0 (healthy) DESCRIPTION: smooth, pink, moist TONGUE: CATEGORY: 0 (healthy) DESCRIPTION: normal, moist, roughness, pink GUMS AND TISSUES: CATEGORY: 0 (healthy) DESCRIPTION: pink, moist, smooth, no bleeding SALIVA: CATEGORY: 0 (healthy) DESCRIPTION: moist tissues, watery and free-flowing saliva NATURAL TEETH: PRESENT: yes CATEGORY: 1 (changes) DESCRIPTION: 1-3 decayed; worn-down teeth ORAL CLEANLINESS: CATEGORY: 1 (changes) DESCRIPTION: food particles / tartar / plaque in 1-2 areas of the mouth; DENTAL PAIN: CATEGORY: 0 (healthy) DESCRIPTION: no behavioral, verbal, or physical signs of dental pain OHAT TOTAL SCORE: 2/16 SIALORRHEA SCORING SCALE (SSS): SSS SCORE: 1 (of 9) SSS DESCRIPTION: dry, never drools CLINICAL ASSESSMENT OF SWALLOW FUNCTION (QUANTITATIVE): REPETITIVE SALIVA SWALLOWING TEST (RSST): RSST RESULT: pass RSST DESCRIPTION: able to elicit 2 dry swallows within 30 seconds. 1OZ WATER SWALLOWING TEST (1OZ WST): 1OZ WST RESULTS: normal ? 1 (of 5) 1OZ WST DESCRIPTION: single swallow without coughing during ingestion DRINKING EPISODES: none 3OZ WATER SWALLOWING TEST (3OZ WST): 3OZ WST RESULTS: abnormal DRINKING EPISODES: abnormal; stopping and starting MASON 6 FACTORS: DYSPHONIA: 0 (negative) DYSARTHRIA: 0 (negative) ABNORMAL GAG RESPONSE: 0 (negative) ABNORMAL VOLITIONAL COUGH: 0 (negative) POST PRANDIAL COUGHIN (negative) POST PRANDIAL VOCAL CHANGES: 0 (negative) MASON 6 FACTORS SCORE: 0 MASON 6 FACTORS DESCRIPTION: normal to mild (0 to 1 clinical predictors) FARMER ASSESSMENT OF SWALLOWING ABILITY (MASA): MASA SEVERITY SCORE: 192 MASA SEVERITY SCORE DESCRIPTION: unremarkable MASA ASPIRATION SEVERITY SCORE: 192 MASA ASPIRATION SEVERITY SCORE DESCRIPTION: unremarkable MASA DYSPHAGIA RISK RATING: possible; lowered probability of disorder CLINICAL ASSESSMENT OF SWALLOW FUNCTION (QUALITATIVE): ORAL PREPARATORY PHASE: competent bolus manipulation without fragmented swallowing (piecemeal deglutition); sufficient anterior oral containment during manipulation; preserved management of breathing / bolus formation without disrupted E ? S ? E pattern ORAL TRANSITIONAL PHASE: no signs of transitional incompetence; no signs of bolus consolidation impairments with overall sufficient oral clearance; no signs or symptoms of premature posterior bolus loss; PHARYNGEAL PHASE: appropriate hyolaryngeal excursion upon digital palpation; no obvious findings suggestive of pharyngeal phase delay / dyssynchrony; no subjective signs of pharyngeal dysmotility; no subjective signs of velopharyngeal impairments; no signs or symptoms of penetration / aspiration throughout trials. ESOPHAGEAL PHASE: esophageal phase appears unremarkable COMPLICATING FACTORS AND NOTABLE FINDINGS: complicating factors include his fluctuating cognitive profile detailed upon chart review, with noted prior aspiration of semi-solid contents under fluoroscopy (though it appears his alertness was markedly impacted at this time, and this would not represent his current level of overall functioning) CLINICAL ASSESSMENT OF SWALLOW FUNCTION (SEVERITY GRADING): SWALLOWING PERFORMANCE SCALE (SPS): SPS SCORE: 2 (of 7) SPS SEVERITY: within functional limits SPS SCORE DESCRIPTION: abnormal oral or pharyngeal stage; able to eat regular diet without modifications or swallowing precautions COGNITIVE COMMUNICATION ASSESSMENT RESULTS (QUANTITATIVE): ABBREVIATED MENTAL TEST ? 4 (AMT-4): AMT-4 SCORE: 2 AMT-4 SEVERITY: abnormal AGE: 2 (incorrect) DATE OF : 1 (correct) LOCATION: 0 (incorrect) YEAR: 1 (correct) ASSESSMENT TEST FOR DELIRIUM & COGNITIVE IMPAIRMENT (4AT): 4AT SCORE: 2 4AT DESCRIPTION: abnormal; possible cognitive impairment ALERTNESS: 0 (normal) AMT-4: 2 (2+ mistakes) MONTHS REVERSE: 0 (7+ correct) ACUTE / FLUCTUATING COURSE: 0 (no) [place] ORIENTATION AND AMNESIA TEST (GOAT): FULL NAME: 2 (correct) LOCATION OF : 4 (correct) LOCATION (HOME): 4 (correct) LOCATION (CURRENT): CITY: 0 (incorrect) BUILDIN (correct) ADMISSION DATE: 0 (unable to recall) MODE OF TRANSPORTATION: 5 (recalled) FIRST EVENT RECALLED: 0 (unable to recall) EVENT DETAIL: 0 (no) LAST EVENT RECALLED (PRE-INJURY):5 (plausible event) CURRENT TIME: 5 (correct) CURRENT DAY OF WEEK: 1 (2 days off) CURRENT DATE: 0 (>4 days off) CURRENT MONTH: 10 (1 month off) CURRENT YEAR: 30 (correct) GOAT TOTAL SCORE: 71/100 GOAT IMPAIRMENT CLASSIFICATION: borderline SHORT ORIENTATION MEMORY CONCENTRATION TEST (SOMCT): CURRENT YEAR: 4 (correct) CURRENT MONTH: 0 (1 month off) CURRENT TIME: 3 (within 30 min) COUNTING 20-1: 4 (correct) MONTHS REVERSE: 4 (correct) ADDRESS RECALL: 8 (4 correct) SOMCT TOTAL SCORE: 23/28 SOMCT IMPAIRMENT CLASSIFICATION: minimal impairment COGNITIVE COMMUNICATION ASSESSMENT RESULTS (QUALITATIVE): COGNITIVE COMMUNICATION FUNCTIONING: impaired cognitive functioning, with noted disorientation, giving multiple conflicting answers during orientation based portions of the brief cognitive communication portions of the assessment; noted poor information recall (particularly for recent events); he was pleasant to interact with, though was somewhat quiet and under- reactive at times; his safety awareness was suboptimal, as he was noted to lift his walking cane to show the clinician while ambulating and required assistance from the clinician to avoid falling; no clear language related abnormalities; no clear visuospatial related abnormalities; we were unable to advance with a full cognitive communication assessment this date due to time constraints, though completion of a more specific cognitive communication assessment is clearly indicated prior to fully developing our treatment plan (considerations for the SCATBI). COMPLICATING FACTORS AND NOTABLE FINDINGS: complicating factors include possible confounding variables associated with depression and possible iatrogenic contributors (Gabapentin can impact executive functioning); possible baseline contributing / confounding factors that require further investigation - for example, his baseline alcohol use / abuse, his untreated Hepatitis C (can complicate attention and cognitive speed / flexibility), his suspected multiple myeloma, and his recently diagnosed urinary tract infection 2 days prior to the current assessment. COGNITIVE COMMUNICATION ASSESSMENT RESULTS (SEVERITY GRADING): FUNCTIONAL COMMUNICATION MEASURE (FCM) ?COGNITIVE ORIENTATION FCM LEVEL: 3 (of 6) SEVERITY: moderate LEVEL DESCRIPTION: is aware of self and sometimes oriented to family members; difficulty attending to tasks is noted, supervision for safety is therefore required; follows simple directions; recalls routine tasks incorrectly or inconsistently INTERVENTION CONSIDERATIONS: I cannot definitively rule out silent aspiration at bedside and would consider advancing with objective assessment of his oropharyngeal swallow function if silent aspiration is suspected (no current clinical suspicions). I would consider the Patient to be at an increased risk of delirium secondary to his history of significant neurological insult and accompanying multiple cerebral hemorrhage with post hemorrhagic cognitive impairments, his prior issues with delirium, and his high number of medical complications / comorbidities, with additional considerations to include pharmacological / iatrogenic considerations (Neurontin), recent metabolic imbalances, recurrent urinary tract infection, reported history of emotional distress, and recent alcohol intoxication and/or withdrawal RECOMMENDATIONS FOR INTERVENTION: The Patient requires intensive skilled speech-language intervention targeting diet texture management and training / implementation of recommended compensatory strategies; Patient / caregiver education regarding post-TBI dysphagia / cognitive communication deficits and associated symptomology; continued formal and informal assessment of the cognitive communication profile throughout the initial 1-3 sessions in the intervention cycle with adjustments to the treatment plan as clinically indicated. POST ASSESSMENT EDUCATION: The results and recommendations were discussed with the Patient immediately following completion of the assessment, with the Patient verbalizing understanding and agreement with all recommendations and education provided, though further education and discussion with the Patients family () is indicated. DIET TEXTURE RECOMMENDATIONS: Will recommend a regular ? soft textured (IDDSI: 6), thin liquid diet (IDDSI: 0) diet RECOMMENDED COMPENSATORY STRATEGIES: Reduced bolus volume / rate of ingestion, liquid chaser at reasonable intervals, consider cutting tougher textures into bite sized pieces, seated upright at 90 degrees during PO intake, remain upright for 30-60 minutes post meal (GERD precaution) FUNCTIONAL OUTCOMES: OUTCOME 1: the Patient will tolerate the least restrictive means of nutrition to facilitate adequate hydration / nutrition with optimum safety and efficiency of swallowing function during P.O. intake without overt signs and symptoms of aspiration. OUTCOME 2: the Patient will participate in continual Patient / Patient caregiver education regarding post-TBI dysphagia to facilitate improved awareness and insight into the Patients potential dysphagia related complications and potential impact on the Patients overall medical stability. OUTCOME 3: the Patient will participate in continual assessment of the cognitive communication profile throughout the initial portions of the intervention cycle to facilitate comprehensive objective date in regards to his current level of cognitive functioning and allow for full development of his individual intervention plan. OUTCOME 4: goal adjustment as needed Phillip Martinez M.A., CCC-PSYCHOLOGISTS, CBIS MBSImP Certified, LSVT Certified [facility] Speech-Language Pathology Department Email: [email or web address]
--- NOTE | 2020-06-10 14:25 | HP.OTEVAL_ITS ---
Patient's Visit Information NIDIA HICKMAN is a 69 year old M, referred to Occupational Therapy by Dr. Onur Garcia MD, with a diagnosis of SDH. Date of Evaluation: 06/09/20 Occupational Therapist: Raysa Hernandez, DENEEN/Nael, CHT - Subjective This 69 year old male was seen for OT eval with dx of SDH, pt states he had a fall and hit his head- pt was on rehab for 19 days and now has been home for 2 weeks. pt states he is doing ok with home mobility. pt states they have rails to go up and down the stairs to the bedroom. pt states he has a shower chair for his walk in shower- with grab bars- pt states he does need some assist with bathing and drying himself off from the shower- states about a month prior to his fall pt was getting weak as he was drinking daily and not eating. pts states pt does not remember his activity prior due to his drinking. states he is stronger now than before his fall, but still weak decreasing his ind, with ADLs and IADLs. - Pain arms /wist 4 Pain Intensity Range: 5, 6 - ROM Shoulder: right 90 left WNL Elbow: right/left WNL Forearm: right sup 50 left WNL Wrist: right NT left 40/30 with pain (pt did fall on this when he passed out) - Strength Shoulder: right/left 4-/5 Elbow: right/left 4-/5 Bobbin Disker: right NT left 23# Lateral Pinch: right NT left 10# with pain Tripod Pinch: right NT left 10# with pain Strength Comments: pt has current soft splint on right hand pt reports lig. involvement of right wrist and going to today. pt demo with weakness of BUE - Sensation Sensation Comments: denies - Quick DASH-Disab of Arm,Shoulder& Hand Quick DASH Score: 56.8175 - Goals Goal:: pt will demo a increase in BUE mmt by 1 MM grade to 5/5 to increase pts ind. with ADls and IADLs by d/c. pt will demo a increase in bilateral patron attendant strength by 30# to increase pts ind. with ADLs and IADLs by d/c Goal:: pt will demo a increase in right shoulder flex equal to left to increase pts ind. with ADLs and IADLs by d/c Goal:: pt will report pain no greater than 2/10 with use of BUE with ADLs and IADLs by d/c - Rehabilitation General Assessment: pt demo with BUE weakness limiting his ind. with ADLs and IADl at this time. pt would benefit from skilled OT services 2-3x weeks for 6 weeks to increase pts strength/endurance to perform ADLs and IADls at a safe ind.level. PT demo understanding and agree to POC. Rehabilitation Potential: Good - Anticipated Interventions A/AAROM/PROM, Strengthening, Orthoses, Joint Protection/Energy Conservation, Ergonomic Education, ADL Training, Education re assistive Equipment, Education re Diagnosis - Visit Plan Frequency: 2x /Week Duration: 6 Weeks TEXT: Thank you for the opportunity to evaluate your patient. For Medicare and Medicare HMO plans, please review the plan of care and approve it. It will need to be FAXED BACK to us at [phone] for Medicare purposes. Please let me know if there are questions or concerns regarding this plan of care. Physician Signature: Date:
--- NOTE | 2020-07-17 10:55 | HP.PTREVAL ---
Dr. Onur Garcia MD, It has been my pleasure to treat NIDIA HICKMAN over the last 7 visits for SAH, vertebral fx.. Please see the progress note below for an update on the physical therapy plan of care! Subjective: Feels like he cn do these exercises at home instead of continuing PT. Exercises have helped him loosen up and be able to get on adn off the floor easier. Objective/Function: FGA is +5 and improving. Steps require one rail and show improved strength although still short of breath when completed. Trasnfer out of chair without UE but needs VC to himself for FW weight shift. Overall much better adn can continue via HEP Plan Plan: f/u three weeks to ensure progressing with just HEP. d/c if doing well. Goals Goal 1:: Trasnfer out of chair in one attempt with one UE Goal Time Frame: 4-6 Weeks Goal Progress: Goal Met Goal 2:: Steps with one rail reciprocally safely Goal Time Frame: 4-6 Weeks Goal Progress: Goal Met Goal 3:: Walk with 24/30 FGA safely Goal Time Frame: 4-6 Weeks Goal Progress: Goal Met Goal 4:: Pt feel 75% back to normal activity and safety Goal Time Frame: 4-6 Weeks Goal Progress: Progressing Goal 5:: maintain improvements made in therapy with HEP over next 3-4 weeks Goal Time Frame: 2-4 Weeks Anticipated Interventions Patient/Client Instruction: Educate patient on: Condition, Plan of Care For the Purpose of:: To improve muscle performance and motor function, To increase tolerance to activity/condition/position, To improve ability of physical actions for home/community/work/leisure Therapeutic Exercise to Include: Strength training, Balance training, Postural training, Flexibilty training, Gait and locomotor training, Neuromotor development For the Purpose of:: To improve muscle performance and motor function, To increase tolerance to activity/condition/position, To improve ability of physical actions for home/community/work/leisure, To improve gait and locomotor functions, To improve safety Please do not hesitate to contact me at [phone] by phone or if you have questions or concerns regarding this new plan of care! Sincerely, Siva Covington, DPT, OCS, CSCS
--- NOTE | 2020-09-21 12:31 | HP.SP.DC_ITS ---
ST Discharge Summary - Discharged: Discharge: The patient is a 70 year old male who attended 8 skilled speech- language intervention sessions spanning from 06/08/2020 to 09/21/2020 targeting dysphagia and cognitive communication-based deficits status post 04/12/2020 mechanical fall with loss of consciousness (~3 minutes) with resulting traumatic brain injury with a left frontal subarachnoid hemorrhage, intraventricular hemorrhage of the left lateral ventricle, and a subarachnoid hemorrhage along the left side of the brainstem, with his clinical course complicated by an initial urinary tract infection and initial chemotherapy treatment for multiple myeloma. The patient participated in intervention sessions targeting diet texture management and training / implementation of recommended compensatory strategies; patient / caregiver education regarding post-TBI dysphagia / cognitive communication deficits and associated symptomology; continued formal and informal assessment of the cognitive communication profile throughout the initial sessions in the intervention cycle with adjustments to the treatment plan as clinically indicated. All goals have been met at this time, after discussing with the patient we will proceed with discharge from the skilled speech-language pathology caseload at this time, though would gladly re-initiate intervention as needed moving forward.
== END 2020-09-21 19:00 | disposition home or self-care (01) ==
LOC: SP 11:00
PROVIDERS: PCP Family Medicine; Referring Provider Family Medicine; Visit Provider Family Medicine
DX: I60.9 Nontraumatic subarachnoid hemorrhage, unspecified (principal); R13.10 Dysphagia, unspecified
CPT/HCPCS: 92507; 92523; 92610; 97110; 97162; 97164; 97166

== ENCOUNTER 2020-11-13 16:48 | Outpatient (RCR) | payer MEDICARE, BC, SELFPAY ==
[2020-11-13] MEDS: COVID-19 VACC, MRNA(PFIZER)/PF 30 MCG/0.3 ML SYRINGE IM (13:30)
[2020-12-04] MEDS: COVID-19 VACC, MRNA(PFIZER)/PF 30 MCG/0.3 ML SYRINGE IM (13:24)
== END 2021-02-09 23:59 ==
LOC: IMMUN 16:48
PROVIDERS: PCP Family Medicine; Referring Provider Family Medicine; Visit Provider Family Medicine
DX: Z23 Encounter for immunization (principal)
CPT/HCPCS: 0001A; 0002A; 91300

== ENCOUNTER 2021-05-27 15:09 | Observation (INO) | payer MEDICARE, BC, SELFPAY ==
[2021-05-27 15:11] VITALS: BP 113/67; PULSE 72; RESP 14; TEMP 36.7; O2SAT 99; BMI 25.0
--- NOTE | 2021-05-27 15:36 | VDLE_ITS ---
Reason For Study: Pain RIGHT LEFT GSV is normal. Left CFV is compressible. Right CFV, FV and PopV are compressible. T/P Trunk is compressible. PTV is compressible. RT PerV is compressible. Procedure This is a venous duplex using B-mode, color flow and spectral Doppler. Exam performed portable in ED. The exam was abbreviated due to the COVID 19 protocol. A preliminary report was called and/or faxed to [facility]. VL/Venous Duplex US, Unilateral Interpretation Summary There is no evidence of right lower extremity deep vein thrombosis. Right great saphenous vein appears patent and compressible segmentally. Normal flow patterns left common f emoral vein Covid 19 protocol Ordering Physician: Tavo Mcdonough Referring Physician: Mars Garcia Performed By: Gladys Harley RVT
--- NOTE | 2021-05-27 15:36 | RAD_ITS ---
HISTORY: Shortness of breath, tachypnea. TECHNIQUE: XR Chest 1 View. # of images incl. paperwork: 1. COMPARISON: 03/10/2020. FINDINGS: CARDIOMEDIASTINAL STRUCTURES: Cardiac silhouette not enlarged. Mediastinal contour unremarkable with calcification of the aorta. Left chest wall port with catheter tip in the mid superior vena cava. LUNGS: Radiographically clear. PLEURA: No pleural effusion or pneumothorax. OSSEOUS STRUCTURES: Degenerative change. RAD/Chest 1 View (Portable) IMPRESSION: No radiographic evidence of acute cardiopulmonary disease. Interval placement of chest wall port. at 1643 Reported and signed by: Lianne Benoit MD Electronically Signed: Lianne Benoit MD at 16:42 EDT Tel , Service support ,
--- NOTE | 2021-05-27 15:36 | EKG12_ITS ---
Test Reason : Blood Pressure : / mmHG Vent. Rate : 063 BPM Atrial Rate : 063 BPM P-R Int : 138 ms QRS Dur : 082 ms QT Int : 458 ms P-R-T Axes : -27 -12 028 degrees QTc Int : 468 ms Normal sinus rhythm Nonspecific ST abnormality Abnormal ECG Confirmed by DAVE QUIROS, MARGARITA ([id number]), make up editor PRABHJOT NARAYAN ([id number]) on 05/31/2021 12:58:21 PM Referred By: VANI Confirmed By:MARGARITA ACOSTA MD
--- NOTE | 2021-05-27 15:38 | EX.ED.DYSGE1 ---
HPI History of Present Illness Chief Complaint: Shortness of Breath Informant: patient and spouse/S.O. Onset/Context/Timing Onset: Today (Orthostatic hypotension), Days (Shortness of breath) and Weeks (Diarrhea x3 weeks) Context: Sudden Onset Timing: Continuous Quality: Please read HPI Location: Please read HPI Current Severity: Mild Maximum Severity: Severe Worsened by: Dyspnea on exertion Relieved by: Nothing Associated Symptoms Associated Symptoms: Orthostatic hypotension and 15 pound weight loss past month Narrative Narrative: Patient is a 70-year-old male with multiple medical problems. He is presently under the care of Dr. Velasquez for both myeloma. He was seen today by Dr. Velasquez. Was sent to the emergency room because his blood pressure dropped to 60/20 with standing. He does report thirst, dry mouth. He denies headache, visual, ocular auditory symptoms. He denies rhinorrhea, congestion postnasal drainage. Denies sore throat. He had a rapid Covid test this past Monday was negative. However this may be a false negative since his symptoms started 2 to 3 weeks ago. Patient denies chest pain of any type. Does report shortness of breath at rest and increased shortness of breath with activity. He denies nausea, vomiting but does report diarrhea. Is not noted blood or mucus. He has decreased urine output. He does report weakness and lightheadedness with standing. Prior similar symptoms: No Recent Illness/Hospitalization: Yes [facility] Medical History Anemia Essential (primary) hypertension ETOH abuse Fatty liver Obstructive sleep apnea Syncope Thrombocytopenia Home Medications albuterol sulfate 2 puff INHALATION Q4H PRN PRN 05/07/20 [History Last Taken Unknown] celecoxib 100 mg PO BID #60 cap 05/26/20 [Rx Last Taken Unknown] atenolol 50 mg PO QHS 06/18/20 [History Last Taken Unknown] ferrous sulfate 325 mg PO QHS 06/18/20 [History Last Taken Unknown] allopurinol 300 mg PO DAILY 05/27/21 [History Last Taken Unknown] aspirin 81 mg PO DAILY 05/27/21 [History Last Taken Unknown] calcium carbonate-vitamin D3 [Calcium 500 + D] 1 tab PO BID 05/27/21 [History Last Taken Unknown] cholecalciferol (vitamin D3) [Vitamin D3] 25 mcg PO DAILY 05/27/21 [History Last Taken Unknown] dexamethasone 20 mg PO QWEEK 05/27/21 [History Last Taken Unknown] entecavir 0.5 mg PO DAILY 05/27/21 [History Last Taken Unknown] gabapentin 300 mg PO TID 05/27/21 [History Last Taken Unknown] lenalidomide 10 mg PO DAILY 05/27/21 [History Last Taken Unknown] lidocaine-prilocaine 1 applic TOPICAL DAILY 05/27/21 [History Last Taken Unknown] lisinopril 10 mg PO DAILY 05/27/21 [History Last Taken Unknown] oxybutynin chloride 10 mg PO DAILY 05/27/21 [History Last Taken Unknown] Allergy/AdvReac Type Severity Reaction Status Date / Time No Known Allergies Allergy Verified 05/27/21 15:11 Family History Mother Heart disease Hypertension Father Hypertension Social History (Updated 05/27/21 @ 18:50 by Krystina Hayes NP, [employer]) household members: spouse Smoking Status: Never smoker alcohol intake: former details: sober substance use type: does not use ROS ROS ED Constitutional Constitutional ED: Reports weight loss; Denies chills, fever(s), subjective or sweats Eyes Eyes: Denies blurry vision, change in vision or diplopia ENT ENT ED: Denies ear pain, rhinorrhea or sore throat Cardiovascular Cardiovascular: Denies chest pain, orthopnea, palpitations, paroxysmal nocturnal dyspnea or racing heartbeat Respiratory/Chest Respiratory/Chest: Reports dyspnea and dyspnea on exertion; Denies cough, orthopnea, paroxysmal nocturnal dyspnea or sputum Gastrointestinal Gastrointestinal: Reports diarrhea; Denies abdominal pain, constipation, melena, nausea or vomiting Genitourinary Genitourinary ED: Denies dysuria, hematuria or urinary frequency Musculoskeletal Musculoskeletal: Denies arthralgias, myalgias or neck pain Integumentary Denies rash Neurologic Neurologic: Reports weakness; Denies headache(s) or paresthesias Psychiatric Psychiatric: Denies anxiety or depression Endocrine Endocrinology: Denies polydipsia, polyphagia or polyuria EXAM Physical Exam Const Vital Signs: 05/27/21 15:11 05/27/21 15:51 05/27/21 18:40 Temperature 98.1 F 98.4 F Temperature Source Temporal Oral Pulse Rate 72 65 71 Respiratory Rate 14 22 H 19 H Respiratory Effort Short of Breath Blood Pressure 113/67 119/74 149/75 H Blood Pressure Mean 82 89 99 Pulse Ox 99 98 99 Oxygen Delivery Method Room Air Room Air Room Air Positive well nourished and well developed General Appearance ED: well developed and other Patient does not appear well. He does not appear in distress. HEENT Reports dry mucous membranes HEENT Narrative: Head is atraumatic normocephalic. Nares patent. Mouth ED: Yes dry mucous membranes Mouth: dry mucous membranes Eyes PERRL and EOMs intact bilaterally General Eye ED: Negative for pale conjunctiva or scleral icterus Neck no lymphadenopathy, supple and no JVD Chest Wall inspection of chest normal and palpation of chest normal Resp normal respiratory effort and clear to auscultation bilaterally Effort and Inspection: Negative for pain with movement Cardio regular rate, regular rhythm, S1 normal heart sound, S2 normal heart sound and no murmurs GI normal to inspection, nondistended, normoactive bowel sounds, non-tender and non-distended Palpation: soft Back/Spine no CVA tenderness Cervical Spine: Negative for cervical spine tenderness Thoracic Spine / Upper Back: Negative for thoracic spinal tenderness or paraspinal muscle tenderness Extremity Negative for normal to inspection Extremity Narrative: Patient has finding consistent with DVT left lower extremity. There is discoloration of the right lower extremity and pain to palpation along distribution deep venous system. Patient has diminished pulses bilaterally. Neuro oriented x3, CN's II-XII intact bilaterally and no sensory deficits noted Sensorium / Orientation: alert Motor Exam: strength 5/5 throughout Psych mental status grossly normal Skin no rashes or lesions noted MDM MDM MDM Narrative Medical decision making narrative: Differential diagnosis for shortness of breath is PE, pneumonia, versus bronchitis. Also need to consider anemia since he does have history of malignancy. Will obtain venous duplex of the right leg since he has new findings and has not been taking his Xarelto for the past week. With the 15 pound weight loss and history of both myeloma conference metabolic panel was obtained to assess calcium, renal function and anion gap. Clinically is dehydrated. 1 L of normal saline was ordered. Orthostatics were not repeated since they were markedly positive at Dr. Kodi cramer's office. Lab Data Attestation: I reviewed the patient's lab results. Lab results narrative: SPECT the lactic acidosis is due to poor nutrition and orthostatic hypotension. Patient is anemic from baseline with an H&H of 8.8 and 27.7. Creatinine is elevated from baseline. Baseline is 1.2. Since he discontinued his anticoagulant is having shortness of breath and known DVT left lower extremity concerned he may have a pulmonary embolus. CTA has been ordered. This point I am not concerned he is septic. Labs: Laboratory Results - last 24 hr 05/27/21 05/27/21 05/27/21 15:49 15:49 15:49 WBC 3.3 L RBC 3.02 L Hgb 8.8 L Hct 27.7 L MCV 91.7 MCH 29.1 MCHC 31.8 L RDW Std Deviation 55.2 H RDW Coeff of [place] 16.3 H Plt Count 132 L MPV 10.4 Immature Gran % (Auto) 0.300 Neut % (Auto) 46.6 L Lymph % (Auto) 40.8 Wolfe % (Auto) 8.7 Eos % (Auto) 3.0 Baso % (Auto) 0.6 Absolute Neuts (auto) 1.6 L Absolute Lymphs (auto) 1.36 Nucleated RBC % 0 Sodium 136 Potassium 3.5 Chloride 102 Carbon Dioxide 27.0 Anion Gap 7 BUN 24 H Creatinine 1.39 H Estim Creat Clear Calc 55.83 Est GFR (MDRD) Af Amer 65 Est GFR (MDRD) Non-Af 54 L BUN/Creatinine Ratio 17.3 Glucose 112 H Lactic Acid 2.1 H* Calcium 8.4 L Total Bilirubin 0.60 AST 19 ALT 20 Alkaline Phosphatase 87 Total Protein 5.6 L Albumin 2.7 L Globulin 2.9 Albumin/Globulin Ratio 0.9 COVID-19 ([facility]) 05/27/21 15:55 WBC RBC Hgb Hct MCV MCH MCHC RDW Std Deviation RDW Coeff of [place] Plt Count MPV Immature Gran % (Auto) Neut % (Auto) Lymph % (Auto) Wolfe % (Auto) Eos % (Auto) Baso % (Auto) Absolute Neuts (auto) Absolute Lymphs (auto) Nucleated RBC % Sodium Potassium Chloride Carbon Dioxide Anion Gap BUN Creatinine Estim Creat Clear Calc Est GFR (MDRD) Af Amer Est GFR (MDRD) Non-Af BUN/Creatinine Ratio Glucose Lactic Acid Calcium Total Bilirubin AST ALT Alkaline Phosphatase Total Protein Albumin Globulin Albumin/Globulin Ratio COVID-19 ([facility]) Negative Radiography Chest X-Ray - ED: 1 View, Read by ED Physician (Single view chest x-ray interpreted by me at 1645.), Normal, Heart, Lungs, Mediastinum, Bony Structures and No Acute Disease Diagnostic Testing: Radiology Impression Chest X-Ray 05/27/21 15:36 IMPRESSION: No radiographic evidence of acute cardiopulmonary disease. Interval placement of chest wall port. at 1643 Reported and signed by: Lianne Benoit MD Electronically Signed: Lianne Benoit MD at 16:42 EDT Tel , Service support , Venous Doppler Study 05/27/21 15:36 Interpretation Summary There is no evidence of right lower extremity deep vein thrombosis. Right great saphenous vein appears patent and compressible segmentally. Normal flow patterns left common femoral vein Covid 19 protocol Ordering Physician: Tavo Mcdonough Referring Physician: Mars Garcia Performed By: Gladys Harley RVT Chest CTA 05/27/21 16:45 IMPRESSION: Negative CTA Chest. No acute pulmonary findings. Destructive endplate changes at T11 and T12 with significant progression from 01/26/20. Findings suspicious for possible chronic discitis. Individualized dose optimization techniques were used for this CT. at 1930 Reported and signed by: Jonathan Gaming MD Electronically Signed: Jonathan Gaming MD at 19:29 EDT Tel , Service support , CTA of the chest reveals no apparent pulmonary embolus. Awaiting formal read by radiologist. Will contact hospitalist for admission. EKG Initial EKG: Attestation: I personally reviewed and interpreted this EKG as follows: Interpretation: Sinus Rhythm (Ventricular rate is 63. There is artifact which computer is reading as an ossific ST-T wave changes. TX interval is 138 ms. Cures duration 82 ms. QT duration 458 ms. [place] is normal.) Critical Care Time Critical Care Time: Yes Critical care time (excluding procedures): 30-74 minutes (31 minutes), Including time spent: (History, physical, documentation, interpretation of laboratory results, initiation of therapy), Discussing w/Patient &/or Family/[place]us[place], Discussing w/Consultants (Case discussed with patient's oncologist. Patient's oncologist faxed over recent laboratory tests.) and Arranging Admission or Transfer Discharge Plan Dx/Rx/DC Orders Clinical Impression: Acute dyspnea, Anemia, Acute kidney insufficiency, Acute deep vein thrombosis (DVT) of left lower extremity, Orthostatic hypotension, Multiple myeloma not having achieved remission, Pancytopenia, Acidosis, lactic Disposition Disposition: Acute Care Hospital [facility] Discharge Date/Time: 05/27/21 19:07
[2021-05-27 15:51] VITALS: BP 119/74; PULSE 65; RESP 22; O2SAT 98; O2SAT 99
[2021-05-27 16:00] LABS: Absolute Lymphocyte Count 1.36 X10^3/uL (0.83-4.51); Absolute Neutrophil Count 1.6 X10^3/uL (2.0-7.7); Basophil# 0.02 X10^3/uL; Basophil% 0.6 % (0-1); Hematocrit 27.7 % (40-54); Hemoglobin 8.8 g/dL (13.0-16.5); Lymphocyte # 1.36 X10^3/ul (0.83-4.51); Lymphocyte % 40.8 % (19-41); Mean Corp Hgb Conc 31.8 g/dL (32-36); Mean Corpuscular Hgb 29.1 pg (27.0-32.0); Mean Corpuscular Volume 91.7 fL (80-94); Mean Platelet Vol. 10.4 fl (6.2-12.0); Monocyte# 0.29 X10^3/uL; Monocyte% 8.7 % (0-10); NRBC Flagged by Analyzer 0 % (0-5); Neutrophil # 1.55 X10^3/uL (2.7-7.7); Neutrophil % 46.6 % (47-70); Platelet Count 132 K/mm3 (150-450); RBC Distribution Width CV 16.3 % (11.6-14.6); RBC Distribution Width SD 55.2 fl (35.1-43.9); Red Blood Count 3.02 M/mm3 (4.6-6.2); White Blood Count 3.3 K/mm3 (4.4-11.0)
[2021-05-27 16:17] LABS: ALB/GLOB Ratio 0.9 RATIO (0.9-2.4); AST(SGOT) 19 U/L (15-37); Alanine Aminotransfer ALT/SGPT 20 U/L (16-61); Albumin, Serum 2.7 g/dL (3.2-5.0); Alkaline Phosphatase 87 U/L (45-117); Anion Gap 7 (5-15); BUN 24 mg/dL (7-18); BUN/Creat Ratio 17.3 RATIO (10-20); Calcium,Total 8.4 mg/dL (8.5-10.1); Chloride 102 mmol/L (98-107); Creatinine, Serum 1.39 mg/dL (0.70-1.30); EST Glomerular Filtration Rate 54 mL/min (>60); Est Glom Filt Rate - Afr Amer 65 mL/min (>60); Estimated Creatinine Clearance 55.83 ml/min; Globulin 2.9 g/dL (2.2-4.2); Glucose 112 mg/dL (74-106); Potassium 3.5 mmol/L (3.5-5.1); Protein, Total 5.6 g/dL (6.4-8.2); Sodium Level 136 mmol/L (136-145)
[2021-05-27] MEDS: 0.9% Normal Saline 1,000 ML 1000 ML IV (16:25)
[2021-05-27 16:34] LABS: Lactic Acid 2.1 mmol/L (0.4-1.9)
--- NOTE | 2021-05-27 16:45 | CT_ITS ---
HISTORY: Dyspnea and tachypnea EXAMINATION: CTA Chest WO/W Contrast Injection TECHNIQUE: Helically acquired images were obtained of the chest following IV contrast as per pulmonary angiogram protocol with 3D reconstructions. A radiation dose optimization technique was used for this scan. IV Contrast dosage and agent: 100mL [id number] COMPARISON: CT abdomen and pelvis 01/26/20 FINDINGS: LUNGS, PLEURA AND LARGE AIRWAYS: No masses, consolidation, or edema. No pleural effusion or thickening. No pneumothorax. THYROID: 2 cm nodule left lobe. PULMONARY ARTERIES: Normal in caliber. No pulmonary embolism. AORTA AND GREAT VESSELS: No aneurysm or dissection. HEART AND PERICARDIUM: Heart size is normal. No pericardial effusion. RV to LV ratio measures less than 1. MEDIASTINUM AND SAMY: No mediastinal or hilar adenopathy. Esophagus is unremarkable. No hiatal hernia. UPPER ABDOMEN: No acute pathology. BONES: Progression of destructive endplate changes at T11-12 with extensive new bone formation since prior study of 01/26/20. CT/CTA Chest W/WO Contrast IMPRESSION: Negative CTA Chest. No acute pulmonary findings. Destructive endplate changes at T11 and T12 with significant progression from 01/26/20. Findings suspicious for possible chronic discitis. Individualized dose optimization techniques were used for this CT. at 1930 Reported and signed by: Jonathan Gaming MD Electronically Signed: Jonathan Gaming MD at 19:29 EDT Tel , Service support ,
[2021-05-27 17:26] LABS: Probe Check PASS; Specimen Processing Control PASS
[2021-05-27] MEDS: Enoxaparin 80 MG/0.8 ML Syringe SC (18:38)
[2021-05-27 18:40] VITALS: BP 149/75; PULSE 71; RESP 19; TEMP 36.9; O2SAT 99
--- NOTE | 2021-05-27 18:47 | PCM.HP.STD ---
Documented by User: Krystina Hayes NP, LIBRARY INFORMATION TECHNICIAN-C 05/27/21 19:11 HPI - General General Date of Admission: 05/27/21 HPI Narrative NIDIA HICKMAN, is a 70 M who presents to the emergency room due to weakness, diarrhea, poor appetite. States he lost 15 pounds in the past month. Patient was at oncology appointment today when it was reported that his blood pressure dropped to 60 systolically upon standing and he became dizzy. He was referred to the emergency room for evaluation. Patient reports a longstanding history of orthostatic hypotension. He states his symptoms have recently worsened with dizziness upon standing. He reports very little oral intake over the past week. Patient also states he has had ongoing shortness of breath which has worsened over the past 1 to 2 weeks. He denies shortness of breath at rest however complains of shortness of breath with any activity. He denies cough, fever, chills. Denies urinary symptoms. Denies nausea, vomiting. He reports he was diagnosed with left lower extremity DVT about 1 month ago. He did not realize he needed to refill his Xarelto and stopped treatment 1 week ago. He has a past medical history of multiple myeloma, history of alcohol abuse in remission, chronic anemia, chronic thrombocytopenia, GASTON, hypertension, orthostatic hypotension, anxiety, depression. [facility] Medical History Anemia Essential (primary) hypertension ETOH abuse Fatty liver Obstructive sleep apnea Syncope Thrombocytopenia Home Medications albuterol sulfate 2 puff INHALATION Q4H PRN PRN 05/07/20 [History Last Taken Unknown] celecoxib 100 mg PO BID #60 cap 05/26/20 [Rx Last Taken Unknown] atenolol 50 mg PO QHS 06/18/20 [History Last Taken Unknown] ferrous sulfate 325 mg PO QHS 06/18/20 [History Last Taken Unknown] allopurinol 300 mg PO DAILY 05/27/21 [History Last Taken Unknown] aspirin 81 mg PO DAILY 05/27/21 [History Last Taken Unknown] calcium carbonate-vitamin D3 [Calcium 500 + D] 1 tab PO BID 05/27/21 [History Last Taken Unknown] cholecalciferol (vitamin D3) [Vitamin D3] 25 mcg PO DAILY 05/27/21 [History Last Taken Unknown] dexamethasone 20 mg PO QWEEK 05/27/21 [History Last Taken Unknown] entecavir 0.5 mg PO DAILY 05/27/21 [History Last Taken Unknown] gabapentin 300 mg PO TID 05/27/21 [History Last Taken Unknown] lenalidomide 10 mg PO DAILY 05/27/21 [History Last Taken Unknown] lidocaine-prilocaine 1 applic TOPICAL DAILY 05/27/21 [History Last Taken Unknown] lisinopril 10 mg PO DAILY 05/27/21 [History Last Taken Unknown] oxybutynin chloride 10 mg PO DAILY 05/27/21 [History Last Taken Unknown] Allergy/AdvReac Type Severity Reaction Status Date / Time No Known Allergies Allergy Verified 05/27/21 15:11 Family History (Reviewed 05/27/21 @ 18:50 by Krystina Hayes LIBRARY INFORMATION TECHNICIAN, LIBRARY INFORMATION TECHNICIAN-C) Mother Heart disease Hypertension Father Hypertension Social History (Updated 05/27/21 @ 18:50 by Krystina Hayes NP, LIBRARY INFORMATION TECHNICIAN-C) household members: spouse Smoking Status: Never smoker alcohol intake: former details: sober substance use type: does not use ROS Constitutional Constitutional: Reports change in weight, fatigue and weakness; Denies chills or fever(s) Cardiovascular Cardiovascular: Reports edema and lightheadedness; Denies chest pain, palpitations or syncope Respiratory/Chest Respiratory/Chest: Reports shortness of breath with exertion; Denies cough, dyspnea, productive cough, shortness of breath at rest or wheezing Gastrointestinal Gastrointestinal: Reports diarrhea and other Details: poor appetite, oral intake ; Denies abdominal pain, constipation, nausea or vomiting Genitourinary Genitourinary: Denies burning urination, difficulty urinating, dysuria, hematuria, urinary frequency, urinary incontinence or urinary urgency Musculoskeletal Musculoskeletal: Denies back pain, joint pain or muscle weakness Integumentary Integumentary: Denies erythema, lesions, rash or wounds Neurologic Neurologic: Denies abnormal speech, confusion, dizziness, focal weakness, numbness, paresthesias, seizure-like activity or syncope Psychiatric Psychiatric: Denies anxiety or depression Hematologic/Lymphatic Hematologic/Lymphatic: Denies anemia, easy bleeding or easy bruising Allergic/Immunologic Allergic/Immunologic: Denies hives or asthma Vital Signs Vital Signs Vital Signs: 05/27/21 15:11 05/27/21 15:51 05/27/21 18:40 Temperature 98.1 F 98.4 F Temperature Source Temporal Oral Pulse Rate 72 65 71 Respiratory Rate 14 22 H 19 H Respiratory Effort Short of Breath Blood Pressure 113/67 119/74 149/75 H Blood Pressure Mean 82 89 99 Pulse Ox 99 98 99 Oxygen Delivery Method Room Air Room Air Room Air Weight Weight: 185 lb Body Mass Index (BMI) 25.0 Physical Exam Const alert, oriented x3 and no apparent distress Orientation / Consciousness: awake, oriented to person, oriented to place and oriented to time HEENT normocephalic Mouth: dry mucous membranes Eyes PERRL, EOMs intact bilaterally and conjunctivae normal Neck no lymphadenopathy Resp clear to auscultation bilaterally Auscultation: diminished lung sounds Cardio regular rate, regular rhythm and no murmurs Peripheral Pulses: pulses 2+ throughout GI normal to inspection, nondistended, normoactive bowel sounds, non-tender and non-distended Extremity normal to inspection Extremity Narrative: Lower extremity edema, left greater than right Skin no rashes or lesions noted Lesions: no lesions Rashes: no rashes Trauma: no lacerations or abrasions Neuro CN's II-XII intact bilaterally, no focal motor deficits, no sensory deficits noted and deep tendon reflexes 2+ bilaterally Psych mental status grossly normal and affect normal Results Lab / Micro Data Result Diagrams: 05/27/21 15:49 05/27/21 15:49 Labs: Laboratory Results - last 24 hr 05/27/21 15:49: WBC 3.3 L, RBC 3.02 L, Hgb 8.8 L, Hct 27.7 L, MCV 91.7, MCH 29.1, MCHC 31.8 L, RDW Std Deviation 55.2 H, RDW Coeff of [place] 16.3 H, Plt Count 132 L, MPV 10.4, Immature Gran % (Auto) 0.300, Neut % (Auto) 46.6 L, Lymph % (Auto) 40.8, [place] % (Auto) 8.7, Eos % (Auto) 3.0, Baso % (Auto) 0.6, Absolute Neuts (auto) 1.6 L, Absolute Lymphs (auto) 1.36, Nucleated RBC % 0 05/27/21 15:49: Sodium 136, Potassium 3.5, Chloride 102, Carbon Dioxide 27.0, Anion Gap 7, BUN 24 H, Creatinine 1.39 H, Estim Creat Clear Calc 55.83, Est GFR (MDRD) Af Amer 65, Est GFR (MDRD) Non-Af 54 L, BUN/Creatinine Ratio 17.3, Glucose 112 H, Calcium 8.4 L, Total Bilirubin 0.60, AST 19, ALT 20, Alkaline Phosphatase 87, Total Protein 5.6 L, Albumin 2.7 L, Globulin 2.9, Albumin/Globulin Ratio 0.9 05/27/21 15:49: Lactic Acid 2.1 H* 05/27/21 15:55: COVID-19 ([facility]) Negative Radiology Impression Chest X-Ray 05/27/21 15:36 IMPRESSION: No radiographic evidence of acute cardiopulmonary disease. Interval placement of chest wall port. at 1643 Reported and signed by: Lianne Benoit MD Electronically Signed: Lianne Benoit MD at 16:42 EDT Tel , Service support , Venous Doppler Study 05/27/21 15:36 Interpretation Summary There is no evidence of right lower extremity deep vein thrombosis. Right great saphenous vein appears patent and compressible segmentally. Normal flow patterns left common femoral vein Covid 19 protocol Ordering Physician: Tavo Mcdonough Referring Physician: Mars Garcia Performed By: Gladys Harley RVT Assessment & Plan Assessment/Plan (1) Acute kidney insufficiency: PLAN: 1. Weakness, diarrhea-patient reports 15 pound weight loss over the past month. He reports daily diarrhea for about 1 week. He states he has barely eaten in the past week. Denies nausea, vomiting. Denies blood in stool/black stools. Send stool studies. Aggressive IV fluids. PT/OT. Nutrition consult. 2. Acute kidney injury-IV fluids, trend BMP. 3. Lactic acidosis-suspect secondary to #2. No evidence of infection. 4. Recent left lower extremity DVT-has been off therapy due to confusion and prescribed medication for about 1 week. Therapeutic Lovenox with transition to acute dosing Xarelto at discharge. Right lower extremity negative for DVT. Negative for PE. 5. Multiple myeloma- follows with Dr. Brunson. On chemotherapy. 6. Orthostatic hypotension-history of chronic orthostatic hypotension, previously on midodrine. IV fluids, repeat orthostatic vitals in a.m. 7. Chronic anemia/pancytopenia-appears similar to baseline. Trend CBC. 8. Hypertension-hold BP regimen given hypotension/orthostatic hypotension. 9. BPH with history of TURP 10. History of alcohol abuse-in remission. 11. History of hepatitis C 12. History of trauma related to alcohol use-with SAH, IVH, ICH-requiring extended hospitalization/rehab. 13. Anxiety/depression-on sertraline. 14. GASTON-continue CPAP. 15. Moderate protein calorie malnutrition-15 pound weight loss over the past month. Poor oral intake. Dietitian consult. DVT prophylaxis-therapeutic Lovenox, will need to resume acute DVT Xarelto dosing at discharge. This patient was seen by JARETT Fernandez under the supervision of Dr. Tesfaye. Documented by User: Dr. Malachi Tesfaye MD 05/27/21 20:09 HPI - General General Date of Admission: 05/27/21 Date of Service: 05/27/21 HPI Narrative This 70-year-old gentleman with multiple medical problems as listed below was sent to ER by Dr. Brunson, his oncologist for multiple myeloma for evaluation of orthostatic hypotension, dizziness, feeling weak. Patient further said he had 15 pound weight loss last 1 month, feeling dizzy on standing up, loss of appetite. Patient further said he has orthostatic hypotension dizziness, intermittently since May 2020 when he was diagnosed multiple myeloma after he had a fall which resulted into a left-sided scalp hematoma, left frontal subarachnoid hemorrhage with intraventricular hemorrhage. Patient is not a good historian. He said he noticed mild decrease in the urine output last 1 month but he is also having loose bowel movement, watery to semisolid about 1-2 times for last 1 month. His last chemo for multiple myeloma was about a 1 month ago and next dose of IV chemo infusion tomorrow. Patient denies any fever or chills, denies hematuria, burning micturition, cough or URI symptoms. In ED, patient was found lactic acidosis, orthostatic hypotension, blood pressure systolic 60 on standing up but normal in supine position. Patient has chronic pancytopenia due to multiple myeloma and chemotherapy. BUN/creatinine elevated from baseline 07/2020. Patient also has history of BPH with lower urinary tract obstruction for which he had TURP surgery by Dr. Oliver in June 2020. Since then patient has intermittent retention of urine, sometimes urge incontinence but does not feel any obstruction. [facility] Medical History Anemia Essential (primary) hypertension ETOH abuse Fatty liver Obstructive sleep apnea Syncope Thrombocytopenia Home Medications albuterol sulfate 2 puff INHALATION Q4H PRN PRN 05/07/20 [History Last Taken Unknown] celecoxib 100 mg PO BID #60 cap 05/26/20 [Rx Last Taken Unknown] atenolol 50 mg PO QHS 06/18/20 [History Last Taken Unknown] ferrous sulfate 325 mg PO QHS 06/18/20 [History Last Taken Unknown] allopurinol 300 mg PO DAILY 05/27/21 [History Last Taken Unknown] aspirin 81 mg PO DAILY 05/27/21 [History Last Taken Unknown] calcium carbonate-vitamin D3 [Calcium 500 + D] 1 tab PO BID 05/27/21 [History Last Taken Unknown] cholecalciferol (vitamin D3) [Vitamin D3] 25 mcg PO DAILY 05/27/21 [History Last Taken Unknown] dexamethasone 20 mg PO QWEEK 05/27/21 [History Last Taken Unknown] entecavir 0.5 mg PO DAILY 05/27/21 [History Last Taken Unknown] gabapentin 300 mg PO TID 05/27/21 [History Last Taken Unknown] lenalidomide 10 mg PO DAILY 05/27/21 [History Last Taken Unknown] lidocaine-prilocaine 1 applic TOPICAL DAILY 05/27/21 [History Last Taken Unknown] lisinopril 10 mg PO DAILY 05/27/21 [History Last Taken Unknown] oxybutynin chloride 10 mg PO DAILY 05/27/21 [History Last Taken Unknown] Allergy/AdvReac Type Severity Reaction Status Date / Time No Known Allergies Allergy Verified 05/27/21 15:11 Family History Mother Heart disease Hypertension Father Hypertension Social History (Updated 05/27/21 @ 18:50 by Krystina Hayes NP, LIBRARY INFORMATION TECHNICIAN-C) household members: spouse Smoking Status: Never smoker alcohol intake: former details: sober substance use type: does not use Physical Exam Narrative General: Alert, Oriented x3, Cooperative HEENT: Atraumatic, PERRLA, EOMI, Normocephalic Oral: No Gingival or Mucosal Lesions/ Ulcerations Neck: Supple, No JVD, Negative Carotid Bruits Lungs: Air entry diminished in bilateral lung bases. No crepitation/rhonchi Cardiovascular: Sinus rhythm, Normal S1, Normal S2, No murmurs Abdomen: Bowel Sounds Present, Soft, Non Tender, Non-Distended : No renal angle tenderness. No suprapubic tenderness. Extremities: No edema, Capillary Refill Less than 3 Seconds Skin: No rashes, No breakdown Musculoskeletal: Mild decrease in muscle strength 4+/5 at major joints. No Tenderness to Palpation of Joints or Extremities Neurological: Cranial nerves II-XII grossly intact, DTR 2+/4, bilateral numbness peripheral neuropathy, worse in left leg Psych/Mental Status: Flat affect Results Lab / Micro Data Result Diagrams: 05/27/21 15:49 05/27/21 15:49 Assessment & Plan Assessment/Plan (1) BHAVNA (acute kidney injury): PLAN: This patient was seen in conjunction with Krystina SINGLETON. I have independently interviewed and examined the patient and reviewed pertinent history, examination findings, laboratory and plan of management. I have reviewed the note and agree with the documented findings with the few additional points. In brief, patient is admitted for dizziness, orthostatic hypotension, loss of weight, mild diarrhea symptoms for about 1 month. Patient found to be acute kidney injury seems most likely prerenal. Needs UA with urinary sediments as patient has history of multiple myeloma. As per patient, Dr. Brunson said he is in remission. Serum calcium 8.4, albumin 2.7, globulin 2.9, anion gap 7; I do not think patient has tubular injury or BHAVNA from multiple myeloma. Urine protein creatinine ratio. Monitor kidney function. If does not improve will need ultrasound kidneys and nephrology consult. Orthostatic hypotension: Continue midodrine and fluid bolus. Chronic pancytopenia from multiple myeloma and chemotherapy Right lower extremity DVT: Patient is on Xarelto and continuously. Patient had venous Doppler today which is negative for DVT. CTA chest negative for PE with no acute pulmonary findings. It also reported destructive endplate changes at T11 and 12 with significant progress note from 01/26/2020, findings suspicious of possible chronic discitis. Follow-up with PCP/Dr Brunson Other comorbidities as mentioned above Living will/advanced directive/end of life care: Patient does have living will and advanced directive. He completed about 2 months ago. After discussion of benefits/risks procedures involved with full code, DNR CC arrest and DNR CC, the patient opted for full code although does not want to be on life support/ventilator for prolonged time. Patient does want artificial life support including intubation, tube feed, ventilator and/chest compression, central venous catheter, vasopressor and DC shock if patient can be recovered Total time spent in [id number] encounter in discussion of advanced directive 16 minutes. I have discussed my assessment with LIBRARY INFORMATION TECHNICIANKrystina and orders have been reviewed. Charges/Coding Visit Charges OBSV E&M: 22859 Subsequent observation care L3 Procedures Hospitalists Procedures: 52117 Advncd Care Plan 30 Min
--- NOTE | 2021-05-27 19:19 | ECHOD_ITS ---
Reason For Study: Dyspnea/SOB Procedure This was a 2D Doppler, Color Flow transthoracic echocardiogram. Myocardial strain analysis was performed in this exam to aid in the assessment of cardiac function. The exam was of adequate technical quality. Exam performed portable in patient room. Left Ventricle Normal LV size. Apical false tendon noted. Left ventricular systolic function is normal. The estimated ejection fraction is 70 %. The global longitudinal strain = -21 % (normal). Diastolic function is indeterminate. No regional wall motion abnormalities noted. Right Ventricle Normal right ventricle. Normal systolic function. Atria The left atrium is mildly enlarged. Normal right atrium. No doppler evidence for ASD. Mitral Valve There is no mitral annular calcification. Normal mitral valve. Mild (1+) mitral valve insufficiency. Tricuspid Valve Normal tricuspid valve. Mild tricuspid valve insufficiency. Right ventricular systolic pressure estimated to be 44 mmHg. Aortic Valve Trisinus/trileaflet aortic valve. Mild focal aortic valve calcification. Pulmonic Valve The pulmonic valve is not well visualized. Great Vessels Normal sized aortic root. Pericardium/Pleural No pericardial effusion. MMode/2D Measurements & Calculations LVIDd: 4.8 cm IVSd: 1.1 cm Ao root diam: 3.6 cm LVIDs: 3.2 cm LVPWd: 1.1 cm RVDd: 4.0 cm FS: 34.5 % LAV(MOD-bp): 64.5 ml LVAd ap4: 30.0 cm2 SV(MOD-sp4): 58.1 ml LAV(MOD-bp) Indexed: 31.3 ml/m2 LVLd ap4: 8.4 cm LAV(MOD-sp2): 66.6 ml EDV(MOD-sp4): 86.6 ml LAV(MOD-sp4): 60.5 ml EDV(sp4-el): 90.6 ml LVAs ap4: 15.2 cm2 LVLs ap4: 6.9 cm ESV(MOD-sp4): 28.5 ml ESV(sp4-el): 28.3 ml EF(MOD-sp4): 67.1 % EF(sp4-el): 68.7 % SV(sp4-el): 62.3 ml LA A4 area: 20.4 cm2 LA dimension(2D): 4.8 cm RA A4 area: 15.5 cm2 Doppler Measurements & Calculations MV E max ubaldo: 89.1 cm/sec Lat Peak E' Ubaldo: 14.5 cm/sec Med Peak E' Ubaldo: 6.8 cm/sec MV A max ubaldo: 84.2 cm/sec E/E' lat: 6.1 E/E' med: 13.1 MV E/A: 1.1 Ao V2 max: 184.6 cm/sec LV V1 max: 151.5 cm/sec PA V2 max: 124.9 cm/sec Ao max P.6 mmHg LV V1 max P.2 mmHg Ao V2 mean: 119.4 cm/sec Ao mean P.5 mmHg Ao V2 VTI: 33.2 cm TR max ubaldo: 320.3 cm/sec TR max P.0 mmHg ECHO/Echo Complete Interpretation Summary Left ventricular systolic function is normal. The estimated ejection fraction is 70 %. The global longitudinal strain = -21 % (normal). Apical false tendon noted. The left atrium is mildly enlarged. Mild (1+) mitral valve insufficiency. Mild tricuspid valve insufficiency. Mild focal aortic valve calcification. Right ventricular systolic pressure estimated to be 44 mmHg. Diastolic function is indeterminate. Ordering Physician: Krystina Hayes Referring Physician: Mars Garcia Performed By: Nicole Hernández, DEBORAH, RVT
[2021-05-27 19:31] VITALS: BMI 24.9
[2021-05-27 19:55] LABS: Reflex Lactate? Y
[2021-05-27 19:58] VITALS: BP 126/72; PULSE 70; RESP 16; TEMP 36.6; O2SAT 100
[2021-05-27 20:03] VITALS: BP 112/70; BP 126/73; BP 98/65; PULSE 66; PULSE 72; PULSE 89
[2021-05-27 20:31] VITALS: PULSE 65
[2021-05-27] MEDS: Ferrous Sulfate 325 MG Tablet PO (20:34)
[2021-05-27] MEDS: 0.9% Normal Saline 1,000 ML 150 ML IV (20:34)
[2021-05-27] MEDS: Pantoprazole Sodium 40 MG Tablet PO (20:34)
[2021-05-27] MEDS: Gabapentin 300 MG Capsule PO (20:34)
[2021-05-27 21:12] LABS: Lactic Acid 0.7 mmol/L (0.4-1.9)
[2021-05-27] MEDS: Midodrine HCl 5 MG Tablet PO (22:43)
[2021-05-28] VITALS (13 sets, daily range): BP systolic 107–144; BP diastolic 60–88; PULSE 69–94; RESP 15–18; TEMP 36.7–37.3; O2SAT 94–97
[2021-05-28] MEDS: 0.9% Normal Saline 1,000 ML 150 ML IV ×2 (05:49→13:00)
[2021-05-28] MEDS: Enoxaparin 80 MG/0.8 ML Syringe SC ×2 (05:50→17:26)
[2021-05-28] MEDS: Gabapentin 300 MG Capsule PO ×3 (05:50→21:22)
[2021-05-28 06:22] LABS: Absolute Lymphocyte Count 1.25 X10^3/uL (0.83-4.51); Absolute Neutrophil Count 1.1 X10^3/uL (2.0-7.7); Basophil# 0.02 X10^3/uL; Basophil% 0.7 % (0-1); Eosinophil# 0.13 X10^3/uL; Eosinophils% 4.8 % (0-5); Hematocrit 23.2 % (40-54); Hemoglobin 7.3 g/dL (13.0-16.5); Lymphocyte # 1.25 X10^3/ul (0.83-4.51); Lymphocyte % 46.3 % (19-41); Mean Corp Hgb Conc 31.5 g/dL (32-36); Mean Corpuscular Hgb 28.9 pg (27.0-32.0); Mean Corpuscular Volume 91.7 fL (80-94); Mean Platelet Vol. 10.6 fl (6.2-12.0); Monocyte# 0.16 X10^3/uL; Monocyte% 5.9 % (0-10); NRBC Flagged by Analyzer 0 % (0-5); Neutrophil # 1.12 X10^3/uL (2.7-7.7); Neutrophil % 41.6 % (47-70); POSITIVE MORPHOLOGY YES; Platelet Count 105 K/mm3 (150-450); RBC Distribution Width CV 16.5 % (11.6-14.6); RBC Distribution Width SD 55.4 fl (35.1-43.9); Red Blood Count 2.53 M/mm3 (4.6-6.2); White Blood Count 2.7 K/mm3 (4.4-11.0)
[2021-05-28 06:38] LABS: Differential Indicated SCAN CRITERIA MET
[2021-05-28 06:56] LABS: Anion Gap 6 (5-15); BUN 20 mg/dL (7-18); BUN/Creat Ratio 19.8 RATIO (10-20); Calcium,Total 7.6 mg/dL (8.5-10.1); Chloride 107 mmol/L (98-107); Creatinine, Serum 1.01 mg/dL (0.70-1.30); Differential Comment SCANNED; EST Glomerular Filtration Rate 78 mL/min (>60); Est Glom Filt Rate - Afr Amer 94 mL/min (>60); Estimated Creatinine Clearance 76.83 ml/min; Glucose 94 mg/dL (74-106); Potassium 3.3 mmol/L (3.5-5.1); Sodium Level 138 mmol/L (136-145)
[2021-05-28] MEDS: Pantoprazole Sodium 40 MG Tablet PO ×2 (10:35→21:22)
[2021-05-28] MEDS: Midodrine HCl 5 MG Tablet PO ×3 (10:35→17:26)
[2021-05-28] MEDS: Aspirin 81 MG TAB.CHEW PO (10:35)
--- NOTE | 2021-05-28 13:56 | PCM.PN.HOSP ---
Documented by User: Krystina Hayes PNEUMATIC DRUM SANDER, PNEUMATIC DRUM SANDER-C 05/28/21 14:03 Subjective Subjective Patient seen and examined. States he feels improved. Denies nausea, vomiting. Tolerating diet. Denies further diarrhea. at bedside reports patient has had intermittent confusion. Objective Data Objective Data Vital Signs: Vital Signs Temp Pulse Resp BP Pulse Ox 99.2 F H 73 18 118/60 94 05/28/21 09:45 05/28/21 13:03 05/28/21 09:45 05/28/21 13:03 05/28/21 09:45 Oxygen Delivery Method Room Air Weight: 183 lb 13.848 oz Body Mass Index (BMI) 24.9 Intake & Output: Intake and Output for Last 24 Hours 05/26/21 05/27/21 05/28/21 23:59 23:59 23:59 Intake Total 1000 / 1000 3080 / 3080 Balance 1000 / 1000 3080 / 3080 Medical Nutrition Assessment Dietitian: Malnutrition Criteria Met Start: 05/28/21 11:30 Freq: Status: Active Protocol: Document 05/28/21 11:30 AG (Rec: 05/28/21 11:30 [id number]) Nutrition Malnutrition Evidence of Malnutrition Exists Yes Malnutrition (moderate): Acute Illness/Injury Evidenced By Suboptimal Energy Intake ( Moderate),Weight Loss ( Moderate) Intake Problem Inadequate Oral Intake Etiology r/t decreased appetite Signs/Symptoms as evidenced by estimated PO intake meeting <75% of estimated nutritional needs x 1 week Status Active Problem Clinical Problem Acute Disease or Injury Related Malnutrition Etiology moderate malnutrition r/t inadequate energy intake w/ decreased appetite Signs/Symptoms as evidenced by estimated PO intake meeting <75% of estimated nutritional needs x 1 week, unintentional wt loss of 6.1#/3.2% x 1 week Status Active Problem Recommendation Dietitian Recommendations/Changes continue regular diet, 120mL ensure enlive 4x/day w/ medpass Lab / Micro Data Result Diagrams: 05/28/21 06:10 05/28/21 06:10 Labs: Laboratory Results - last 24 hr 05/27/21 15:49: WBC 3.3 L, RBC 3.02 L, Hgb 8.8 L, Hct 27.7 L, MCV 91.7, MCH 29.1, MCHC 31.8 L, RDW Std Deviation 55.2 H, RDW Coeff of [place] 16.3 H, Plt Count 132 L, MPV 10.4, Immature Gran % (Auto) 0.300, Neut % (Auto) 46.6 L, Lymph % (Auto) 40.8, [place] % (Auto) 8.7, Eos % (Auto) 3.0, Baso % (Auto) 0.6, Absolute Neuts (auto) 1.6 L, Absolute Lymphs (auto) 1.36, Nucleated RBC % 0 05/27/21 15:49: Sodium 136, Potassium 3.5, Chloride 102, Carbon Dioxide 27.0, Anion Gap 7, BUN 24 H, Creatinine 1.39 H, Estim Creat Clear Calc 55.83, Est GFR (MDRD) Af Amer 65, Est GFR (MDRD) Non-Af 54 L, BUN/Creatinine Ratio 17.3, Glucose 112 H, Calcium 8.4 L, Total Bilirubin 0.60, AST 19, ALT 20, Alkaline Phosphatase 87, Total Protein 5.6 L, Albumin 2.7 L, Globulin 2.9, Albumin/Globulin Ratio 0.9 05/27/21 15:49: Lactic Acid 2.1 H* 05/27/21 15:55: COVID-19 ([facility]) Negative 05/27/21 20:27: Lactic Acid 0.7 05/28/21 06:10: WBC 2.7 L, RBC 2.53 L, Hgb 7.3 L, Hct 23.2 L, MCV 91.7, MCH 28.9, MCHC 31.5 L, RDW Std Deviation 55.4 H, RDW Coeff of [place] 16.5 H, Plt Count 105 L, MPV 10.6, Immature Gran % (Auto) 0.700, Neut % (Auto) 41.6 L, Lymph % (Auto) 46.3 H, [place] % (Auto) 5.9, Eos % (Auto) 4.8, Baso % (Auto) 0.7, Absolute Neuts (auto) 1.1 L, Absolute Lymphs (auto) 1.25, Nucleated RBC % 0, Differential Comment SCANNED 05/28/21 06:10: Sodium 138, Potassium 3.3 L, Chloride 107, Carbon Dioxide 25.0, Anion Gap 6, BUN 20 H, Creatinine 1.01, Estim Creat Clear Calc 76.83, Est GFR (MDRD) Af Amer 94, Est GFR (MDRD) Non-Af 78, BUN/Creatinine Ratio 19.8, Glucose 94, Calcium 7.6 L 05/28/21 09:05: Blood Type O POSITIVE, Antibody Screen POSITIVE H, Crossmatch See Detail Radiography Diagnostic Testing: Radiology Impression Chest X-Ray 05/27/21 15:36 IMPRESSION: No radiographic evidence of acute cardiopulmonary disease. Interval placement of chest wall port. at 1643 Reported and signed by: Lianne Benoit MD Electronically Signed: Lianne Benoit MD at 16:42 EDT Tel , Service support , Venous Doppler Study 05/27/21 15:36 Interpretation Summary There is no evidence of right lower extremity deep vein thrombosis. Right great saphenous vein appears patent and compressible segmentally. Normal flow patterns left common femoral vein Covid 19 protocol Ordering Physician: Tavo Mcdonough Referring Physician: Mars Garcia Performed By: Gladys Harley RVT Chest CTA 05/27/21 16:45 IMPRESSION: Negative CTA Chest. No acute pulmonary findings. Destructive endplate changes at T11 and T12 with significant progression from 01/26/20. Findings suspicious for possible chronic discitis. Individualized dose optimization techniques were used for this CT. at 1930 Reported and signed by: Jonathan Gaming MD Electronically Signed: Jonathan Gaming MD at 19:29 EDT Tel , Service support , Echocardiogram 05/27/21 19:19 Interpretation Summary Left ventricular systolic function is normal. The estimated ejection fraction is 70 %. The global longitudinal strain = -21 % (normal). Apical false tendon noted. The left atrium is mildly enlarged. Mild (1+) mitral valve insufficiency. Mild tricuspid valve insufficiency. Mild focal aortic valve calcification. Right ventricular systolic pressure estimated to be 44 mmHg. Diastolic function is indeterminate. Ordering Physician: Krystina Hayes Referring Physician: Mars Garcia Performed By: Nicole Hernández, DEBORAH, RVT Physical Exam Const alert, oriented x3 and no apparent distress Orientation / Consciousness: awake, oriented to person, oriented to place and oriented to time HEENT normocephalic and moist oral mucous membranes Eyes PERRL, EOMs intact bilaterally and conjunctivae normal Neck no lymphadenopathy Resp normal respiratory effort and clear to auscultation bilaterally Cardio regular rate, regular rhythm and no murmurs Peripheral Pulses: pulses 2+ throughout GI normal to inspection, nondistended, normoactive bowel sounds, non-tender and non-distended Extremity normal to inspection General Extremity: edema bilateral (Left greater than right) Skin no rashes or lesions noted Lesions: no lesions Rashes: no rashes Trauma: no lacerations or abrasions Neuro CN's II-XII intact bilaterally, no focal motor deficits, no sensory deficits noted and deep tendon reflexes 2+ bilaterally Psych mental status grossly normal and affect normal Assessment & Plan Assessment/Plan (1) BHAVNA (acute kidney injury): PLAN: 1. Weakness, diarrhea-viral gastroenteritis versus related to chemotherapy regimen? Patient reports 15 pound weight loss over the past month. He reports daily diarrhea for about 1 week. He states he has barely eaten in the past week. Denies nausea, vomiting. Denies blood in stool/black stools. Send stool studies. IV fluids. PT/OT. Nutrition consult. 2. Acute kidney injury-resolved with IV fluids, trend BMP. 3. Lactic acidosis-suspect secondary to #2. No evidence of infection. Repeat lactic acid following fluids normal. 4. Recent left lower extremity DVT-has been off therapy due to confusion and prescribed medication for about 1 week. Therapeutic Lovenox with transition to acute dosing Xarelto at discharge. Right lower extremity negative for DVT. Negative for PE. 5. Multiple myeloma- follows with Dr. Brunson. On chemotherapy. 6. Orthostatic hypotension-history of chronic orthostatic hypotension, previously on midodrine. Repeat orthostatic vitals following fluids significantly improved. Initiated on midodrine. 7. Acute on chronic anemia/pancytopenia-discussed with oncology, plan to transfuse 1 unit for hemoglobin 7.3. Trend CBC. Stool for occult blood pending. 8. Hypertension-hold BP regimen given hypotension/orthostatic hypotension. 9. BPH with history of TURP 10. History of alcohol abuse-in remission. 11. History of hepatitis C 12. History of trauma related to alcohol use-with SAH, IVH, ICH-requiring extended hospitalization/rehab. 13. Anxiety/depression-on sertraline. 14. GASTON-continue CPAP. 15. Moderate protein calorie malnutrition-15 pound weight loss over the past month. Poor oral intake. Dietitian consult. DVT prophylaxis-therapeutic Lovenox, will need to resume acute DVT Xarelto dosing at discharge. This patient was seen by JARETT Fernandez under the supervision of Dr. Lawton. Documented by User: Dr. Erasmo Lawton, 05/28/21 14:13 Objective Data Lab / Micro Data Result Diagrams: 05/28/21 06:10 05/28/21 06:10 Charges/Coding Addendum Addendum: Patient was seen and examined independently of Krystina Hayes today, his hemoglobin is 7.3 today, I have decided to transfuse him 1 unit of packed red blood cells, his creatinine and BUN are improved. Unfortunately, we cannot obtain blood for the patient until tomorrow, so he will be kept in the hospital until that and receive the blood transfusion. I spoke with Dr. Rico briefly by phone today about the patient's care. On examination he appeared in good health and spirits. Vital signs as documented. Skin warm and dry and without overt rashes. Neck without JVD, neck was supple, trachea midline, thyroid was normal. Lungs clear bilaterally, normal air movement was noted. Heart exam notable for regular rhythm, normal sounds and absence of murmurs, rubs or gallops. Abdomen unremarkable and without evidence of organomegaly, masses, or abdominal aortic enlargement. Bowel sounds are present, abdomen is not distended. Extremities nonedematous, no cyanosis was noted, no clubbing was noted. Neuro: Cranial nerves II through XII are grossly intact, no focal motor deficits were noted, sensation to light touch and pinprick intact, motor exam 5/5 throughout. Psych: Patient is alert and oriented x3, he does not appear anxious or depressed, he does not appear agitated. I have reviewed Krystina Hayes's progress note including her medical assessment and plan of care and endorse it. Visit Charges OBSV E&M: 54909 Subsequent observation care L3
--- NOTE | 2021-05-28 14:02 | CT_ITS ---
STUDY: CT BRAIN WITHOUT CONTRAST REASON FOR EXAM: Male, 70 years old. Confusion RADIATION DOSAGE (If Supplied By Facility): CTDIvol = ( 44.99 ) mGy, DLP = ( 880.47 ) mGycm TECHNIQUE: Transaxial CT imaging of the brain was performed without administration of intravenous contrast material. Individualized dose optimization techniques were used for this CT. COMPARISON: Comparison is made with prior study dated 05/18/2020. FINDINGS: Normal soft tissue structures. Normal calvarium. There is disproportionate enlargement of the lateral and third ventricles, as compared to the extra-axial spaces. The findings suggest normal pressure hydrocephalus (NPH). There are areas of decreased attenuation within the white matter tracts of the supratentorial brain, consistent with microvascular disease changes. Normal basal ganglia and thalami. Normal brainstem. Normal cerebellum. There is no intracranial hemorrhage. There are no findings of an acute ischemic infarction. Atherosclerotic calcification of the vertebral arteries and the cavernous portions of the internal carotid arteries bilaterally. Normal visualized paranasal sinuses. CT/Brain/Head without Contrast IMPRESSION: Disproportionate enlargement of the lateral ventricles as compared to the degree of cerebral atrophy. Normal pressure hydrocephalus should be ruled out. Electronically Signed: Collins Carlson MD at 14:38 EDT , Service support ,
--- NOTE | 2021-05-28 15:05 | NURSING ---
Read and reviewed SN documentation. Plan of care reviewed with SN
[2021-05-28] MEDS: CLARIFY ORDER NOTE (17:24)
[2021-05-28] MEDS: Potassium Chloride Oral Tablet 20 MEQ 40 MEQ PO (17:24)
[2021-05-28] MEDS: Ferrous Sulfate 325 MG Tablet PO (21:22)
[2021-05-29] VITALS (17 sets, daily range): BP systolic 133–166; BP diastolic 74–93; PULSE 73–84; RESP 15–18; TEMP 36.8–37.2; O2SAT 93–98
[2021-05-29] MEDS: Enoxaparin 80 MG/0.8 ML Syringe SC ×2 (04:45→17:00)
[2021-05-29] MEDS: 0.9% Normal Saline 1,000 ML 60 ML IV (04:45)
[2021-05-29] MEDS: Gabapentin 300 MG Capsule PO ×2 (04:46→13:41)
[2021-05-29] MEDS: Pantoprazole Sodium 40 MG Tablet PO (09:20)
[2021-05-29] MEDS: Midodrine HCl 5 MG Tablet PO ×2 (09:20→12:30)
[2021-05-29] MEDS: Aspirin 81 MG TAB.CHEW PO (09:20)
--- NOTE | 2021-05-29 10:10 | PCS.PANDOC ---
PANDEMIC DOCUMENTATION INITIATED: Date: 04/19/2021 Time: 190
--- NOTE | 2021-05-29 10:59 | CASEMGMT ---
This RN NEETA to room with NOEL form, explanation done-pt voices understanding, and signs NOEL form. Original to chart and copy to pt. Pt voices no further questions/concerns/needs. SStaten SIVA CM
--- NOTE | 2021-05-29 13:07 | PCM.DC ---
Discharge Instructions Diet Discharge Diet: No restrictions Activity Discharge Activity: Return to Normal Activity Dressing / Incision Call your doctor if you observe: Shortness of breath, Dizziness and Chest pain Follow Up Care Test Results: Test results from this visit will be discussed in further detail at your follow-up appointment, if applicable. Discharge Plan Admission Admit Date/Time: 05/27/21 19:06 Primary Reason for Your Visit: Acute kidney injury, anemia Attending Provider: Erasmo Lawton Primary Care Provider: Onur Garcia Discharge Orders/Prescriptions Prescriptions: New pantoprazole 40 mg Tablet,Delayed Release (Dr/Ec) 40 mg PO DAILY Qty: 30 RF: 0 Xarelto 15 mg tablet 15 mg PO DAILY Qty: 42 RF: 0 Xarelto 20 mg tablet 20 mg PO DAILY Qty: 30 RF: 0 Continued albuterol sulfate 1 INHALER inhaler 2 puff inhalation Q4H PRN PRN (Reason: wheezing/SOB) RF: 0 ferrous sulfate 325 MG tablet 325 mg PO QHS RF: 0 allopurinol 300 mg tablet 300 mg PO DAILY RF: 0 oxybutynin chloride 10 mg tablet extended release 24hr 10 mg PO DAILY RF: 0 lidocaine-prilocaine 2.5-2.5 % cream 1 applic topical DAILY RF: 0 dexamethasone 4 mg tablet 20 mg PO QWEEK RF: 0 lisinopril 10 mg tablet 10 mg PO DAILY RF: 0 lenalidomide 10 mg Capsule 10 mg PO DAILY RF: 0 cholecalciferol (vitamin D3) [Vitamin D3] 25 mcg (1,000 unit) Tablet 25 mcg PO DAILY RF: 0 calcium carbonate-vitamin D3 [Calcium 500 + D] 500 mg(1,250mg) -400 unit Tablet 1 tab PO BID RF: 0 gabapentin 100 MG capsule 300 mg PO TID RF: 0 Changed atenolol 25 MG tablet 25 mg PO QHS Qty: 0 RF: 0 Held aspirin 81 mg Tablet 81 mg PO DAILY RF: 0 Hold Instructions: Resume on 06/12/21. Hold during the duration of anticoagulation. Discontinued celecoxib 100 MG capsule 100 mg PO BID Qty: 60 RF: 0 Referrals / Follow Up: Onur Garcia MD [Primary Care Provider] - In 1 Week Kodi Brunson MD [STAFF PHYSICIAN] - In 1 Day Disposition Disposition (needs filled in before D/C Order can be placed): Home, Self Care
--- NOTE | 2021-05-29 13:14 | DS.PCM_ITS ---
Documented by User: Krystina Hayes NP, COLOR CORRECTOR-C 05/29/21 13:46 Providers Date of Admission: 05/27/21 Date of Discharge: 05/29/21 Primary Care Physician: Dr. Onur Garcia MD Reason For Visit: BHAVNA,ORTHOSTATIC HYPOTENSION Diagnosis Discharge Diagnosis (1) BHAVNA (acute kidney injury): Status: Acute Code(s): N17.9 - Acute kidney failure, unspecified Medications at Discharge Home Medications albuterol sulfate 2 puff INHALATION Q4H PRN PRN 05/07/20 ferrous sulfate 325 mg PO QHS 06/18/20 allopurinol 300 mg PO DAILY 05/27/21 aspirin 81 mg PO DAILY 05/27/21 calcium carbonate-vitamin D3 [Calcium 500 + D] 1 tab PO BID 05/27/21 cholecalciferol (vitamin D3) [Vitamin D3] 25 mcg PO DAILY 05/27/21 dexamethasone 20 mg PO QWEEK 05/27/21 gabapentin 300 mg PO TID 05/27/21 lenalidomide 10 mg PO DAILY 05/27/21 lidocaine-prilocaine 1 applic TOPICAL DAILY 05/27/21 lisinopril 10 mg PO DAILY 05/27/21 oxybutynin chloride 10 mg PO DAILY 05/27/21 atenolol 25 mg PO QHS #0 tab 05/29/21 pantoprazole 40 mg PO DAILY #30 tab 05/29/21 rivaroxaban [Xarelto] 15 mg PO DAILY #42 tab 05/29/21 rivaroxaban [Xarelto] 20 mg PO DAILY #30 tab 05/29/21 Hospital Course Operations None Procedures 2-D Echocardiogram and Blood transfusion Summary of Care Provided Minutes Spent on Discharge: 35 Hospital Course: Patient is a 70 year old male admitted 05/27/21 due to weakness. 1. Weakness, diarrhea-viral gastroenteritis versus related to chemotherapy regimen? Patient reports 15 pound weight loss over the past month. He reports daily diarrhea for about 1 week. Diarrhea improved. Patient received IV flui ds. Continue diet as tolerated. Follow-up with PCP and oncology at discharge. 2. Acute kidney injury-resolved with IV fluids, trend BMP. 3. Lactic acidosis-suspect secondary to #2. No evidence of infection. Repeat lactic acid following fluids normal. 4. Recent left lower extremity DVT-has been off therapy due to confusion and prescribed medication for about 1 week. Right lower extremity negative for DVT. Negative for PE. Initiated on acute DVT dosing Xarelto at discharge. 5. Multiple myeloma- follows with Dr. Pickard On chemotherapy. 6. Orthostatic hypotension-history of chronic orthostatic hypotension. Repeat orthostatic vitals following fluids significantly improved. Recommend c ompression stockings and adequate hydration. Patient has been on midodrine in the past however blood pressure 140s systolically during admission. 7. Acute on chronic anemia/pancytopenia-discussed with oncology, plan to transfuse 2 unit for hemoglobin 7.0. Stool for occult blood negative. Initia analilia on daily PPI given initiation of Xarelto. Repeat CBC within 1 week by PCP or oncology. 8. Hypertension-atenolol reduced, continue lisinopril. 9. BPH with history of TURP 10. History of alcohol abuse-in remission. 11. History of hepatitis C 12. History of trauma related to alcohol use-with SAH, IVH, ICH-requiring extended hospitalization/rehab. 13. Anxiety/depression-on sertraline. 14. GASTON-continue CPAP. 15. Moderate protein calorie malnutrition-15 pound weight loss over the past mon. Poor oral intake. Dietitian consulted during admission. Continued dietary supplementation per dietitian recommendations. Physical Exam Const alert, oriented x3 and no apparent distress Orientation / Consciousness: awake, oriented to person, oriented to place and oriented to time HEENT normocephalic and moist oral mucous membranes Eyes PERRL, EOMs intact bilaterally and conjunctivae normal Neck no lymphadenopathy Resp normal respiratory effort and clear to auscultation bilaterally Cardio regular rate, regular rhythm and no murmurs Peripheral Pulses: pulses 2+ throughout GI normal to inspection, nondistended, normoactive bowel sounds, non-tender and non-distended Extremity normal to inspection General Extremity: edema bilateral (Left greater than right) Skin no rashes or lesions noted Lesions: no lesions Rashes: no rashes Trauma: no lacerations or abrasions Neuro CN's II-XII intact bilaterally, no focal motor deficits, no sensory deficits noted and deep tendon reflexes 2+ bilaterally Psych mental status grossly normal and affect normal Patient seen and examined prior to discharge. Physical assessment as noted above. Patient is stable for discharge with follow up recommendations as noted above. This patient was seen by JARETT Fernandez under the supervision of Dr. Lawton. Medical Records Data Medical Nutrition Assessment Dietitian: Malnutrition Criteria Met Start: 05/28/21 11:30 Freq: Status: Active Protocol: Document 05/28/21 11:30 AG (Rec: 05/28/21 11:30 AG [id number]) Nutrition Malnutrition Evidence of Malnutrition Exists Yes Malnutrition (moderate): Acute Illness/Injury Evidenced By Suboptimal Energy Intake ( Moderate),Weight Loss ( Moderate) Intake Problem Inadequate Oral Intake Etiology r/t decreased appetite Signs/Symptoms as evidenced by estimated PO intake meeting <75% of estimated nutritional needs x 1 week Status Active Problem Clinical Problem Acute Disease or Injury Related Malnutrition Etiology moderate malnutrition r/t inadequate energy intake w/ decreased appetite Signs/Symptoms as evidenced by estimated PO intake meeting <75% of estimated nutritional needs x 1 week, unintentional wt loss of 6.1#/3.2% x 1 week Status Active Problem Recommendation Dietitian Recommendations/Changes continue regular diet, 120mL ensure enlive 4x/day w/ medpass Weight / BMI Weight Weight: 183 lb 13.848 oz Body Mass Index (BMI) 24.9 ABG / Lab / Microbiology Data Result Diagrams: 05/29/21 10:05 05/28/21 06:10 Laboratory: Laboratory Results - last 24 hr 05/28/21 09:05: Blood Type O POSITIVE, Antibody Screen POSITIVE H, Antibody Identification HIGH TITER LOW AVIDITY, Crossmatch See Detail 05/28/21 09:05: Crossmatch See Detail 05/29/21 10:05: Hgb 7.0 L Microbiology: Microbiology 05/28/21 19:25 Stool Stool Occult Blood (CHILO) - Final Radiography Diagnostic Testing: Radiology Impression Echocardiogram 05/27/21 19:19 Interpretation Summary Left ventricular systolic function is normal. The estimated ejection fraction is 70 %. The global longitudinal strain = -21 % (normal). Apical false tendon noted. The left atrium is mildly enlarged. Mild (1+) mitral valve insufficiency. Mild tricuspid valve insufficiency. Mild focal aortic valve calcification. Right ventricular systolic pressure estimated to be 44 mmHg. Diastolic function is indeterminate. Ordering Physician: Krystina Hayes Referring Physician: Mars Garcia Performed By: Nicole Hernández, DEBORAH, RVT Brain CT 05/28/21 14:02 IMPRESSION: Disproportionate enlargement of the lateral ventricles as compared to the degree of cerebral atrophy. Normal pressure hydrocephalus should be ruled out. Electronically Signed: Collins Carlson MD at 14:38 EDT , Service support , D/C Instructions Discharge Diet: No restrictions Call your doctor if you observe: Shortness of breath, Dizziness and Chest pain Meaningful Use Info Meaningful Use Diagnoses (Choose all that apply): None applicable Discharge Plan Admission Admit Date/Time: 05/27/21 19:06 Primary Reason for Your Visit: Acute kidney injury, anemia Attending Provider: Erasmo Lawton Primary Care Provider: Onur Garcia Discharge Orders/Prescriptions Prescriptions: New pantoprazole 40 mg Tablet,Delayed Release (Dr/Ec) 40 mg PO DAILY Qty: 30 RF: 0 Xarelto 15 mg tablet 15 mg PO DAILY Qty: 42 RF: 0 Xarelto 20 mg tablet 20 mg PO DAILY Qty: 30 RF: 0 Continued albuterol sulfate 1 INHALER inhaler 2 puff inhalation Q4H PRN PRN (Reason: wheezing/SOB) RF: 0 ferrous sulfate 325 MG tablet 325 mg PO QHS RF: 0 allopurinol 300 mg tablet 300 mg PO DAILY RF: 0 oxybutynin chloride 10 mg tablet extended release 24hr 10 mg PO DAILY RF: 0 lidocaine-prilocaine 2.5-2.5 % cream 1 applic topical DAILY RF: 0 dexamethasone 4 mg tablet 20 mg PO QWEEK RF: 0 lisinopril 10 mg tablet 10 mg PO DAILY RF: 0 lenalidomide 10 mg Capsule 10 mg PO DAILY RF: 0 cholecalciferol (vitamin D3) [Vitamin D3] 25 mcg (1,000 unit) Tablet 25 mcg PO DAILY RF: 0 calcium carbonate-vitamin D3 [Calcium 500 + D] 500 mg(1,250mg) -400 unit Tablet 1 tab PO BID RF: 0 gabapentin 100 MG capsule 300 mg PO TID RF: 0 Changed atenolol 25 MG tablet 25 mg PO QHS Qty: 0 RF: 0 Held aspirin 81 mg Tablet 81 mg PO DAILY RF: 0 Hold Instructions: Resume on 06/12/21. Hold during the duration of antic oagulation. Discontinued celecoxib 100 MG capsule 100 mg PO BID Qty: 60 RF: 0 Referrals / Follow Up: Onur Garcia MD [Primary Care Provider] - In 1 Week Kodi Brunson MD [STAFF PHYSICIAN] - In 1 Day Disposition Disposition (needs filled in before D/C Order can be placed): Home, Self Care Documented by User: Dr. Erasmo Lawton DO 05/29/21 17:27 Providers Date of Admission: 05/27/21 Reason For Visit: BHAVNA,ORTHOSTATIC HYPOTENSION Medications at Discharge Home Medications albuterol sulfate 2 puff INHALATION Q4H PRN PRN 05/07/20 ferrous sulfate 325 mg PO QHS 06/18/20 allopurinol 300 mg PO DAILY 05/27/21 aspirin 81 mg PO DAILY 05/27/21 calcium carbonate-vitamin D3 [Calcium 500 + D] 1 tab PO BID 05/27/21 cholecalciferol (vitamin D3) [Vitamin D3] 25 mcg PO DAILY 05/27/21 dexamethasone 20 mg PO QWEEK 05/27/21 gabapentin 300 mg PO TID 05/27/21 lenalidomide 10 mg PO DAILY 05/27/21 lidocaine-prilocaine 1 applic TOPICAL DAILY 05/27/21 lisinopril 10 mg PO DAILY 05/27/21 oxybutynin chloride 10 mg PO DAILY 05/27/21 atenolol 25 mg PO QHS #0 tab 05/29/21 pantoprazole 40 mg PO DAILY #30 tab 05/29/21 rivaroxaban [Xarelto] 15 mg PO DAILY #42 tab 05/29/21 rivaroxaban [Xarelto] 20 mg PO DAILY #30 tab 05/29/21 ABG / Lab / Microbiology Data Result Diagrams: 05/29/21 10:05 05/28/21 06:10 Discharge Plan Admission Admit Date/Time: 05/27/21 19:06 Primary Reason for Your Visit: Acute kidney injury, anemia Attending Provider: Erasmo Lawton Primary Care Provider: Onur Garcia Discharge Orders/Prescriptions Prescriptions: New pantoprazole 40 mg Tablet,Delayed Release (Dr/Ec) 40 mg PO DAILY Qty: 30 RF: 0 Xarelto 15 mg tablet 15 mg PO DAILY Qty: 42 RF: 0 Xarelto 20 mg tablet 20 mg PO DAILY Qty: 30 RF: 0 Continued albuterol sulfate 1 INHALER inhaler 2 puff inhalation Q4H PRN PRN (Reason: wheezing/SOB) RF: 0 ferrous sulfate 325 MG tablet 325 mg PO QHS RF: 0 allopurinol 300 mg tablet 300 mg PO DAILY RF: 0 oxybutynin chloride 10 mg tablet extended release 24hr 10 mg PO DAILY RF: 0 lidocaine-prilocaine 2.5-2.5 % cream 1 applic topical DAILY RF: 0 dexamethasone 4 mg tablet 20 mg PO QWEEK RF: 0 lisinopril 10 mg tablet 10 mg PO DAILY RF: 0 lenalidomide 10 mg Capsule 10 mg PO DAILY RF: 0 cholecalciferol (vitamin D3) [Vitamin D3] 25 mcg (1,000 unit) Tablet 25 mcg PO DAILY RF: 0 calcium carbonate-vitamin D3 [Calcium 500 + D] 500 mg(1,250mg) -400 unit Tablet 1 tab PO BID RF: 0 gabapentin 100 MG capsule 300 mg PO TID RF: 0 Changed atenolol 25 MG tablet 25 mg PO QHS Qty: 0 RF: 0 Held aspirin 81 mg Tablet 81 mg PO DAILY RF: 0 Hold Instructions: Resume on 06/12/21. Hold during the duration of anticoagulation. Discontinued celecoxib 100 MG capsule 100 mg PO BID Qty: 60 RF: 0 Referrals / Follow Up: Onur Garcia MD [Primary Care Provider] - In 1 Week Kodi Brunson MD [STAFF PHYSICIAN] - In 1 Day Disposition Disposition (needs filled in before D/C Order can be placed): Home, Self Care Charges/Coding Addendum Addendum: Patient was seen and examined independently of Krystina Hayes, his hemoglobin today was 7, he will be getting his 2 units of blood transfused today prior to discharge. On examination he appeared in good health and spirits. Vital signs as documented. Skin warm and dry and without overt rashes. Neck without JVD, neck was supple, trachea midline, thyroid was normal. Lungs clear bilaterally, normal air movement was noted. Heart exam notable for regular rhythm, normal sounds and absence of murmurs, rubs or gallops. Abdomen unremarkable and without evidence of organomegaly, masses, or abdominal aortic enlargement. Bowel sounds are present, abdomen is not distended. Extremities nonedematous, no cyanosis was noted, no clubbing was noted. Neuro: Cranial nerves II through XII are grossly intact, no focal motor deficits were noted, sensation to light touch and pinprick intact, motor exam 5/5 throughout. Psych: Patient is alert and oriented x3, he does not appear anxious or depressed, he does not appear agitated. Patient appears stable for discharge at this time after he receives his blood transfusion. I have reviewed Krystina Hayes's discharge summary including her medical assessment and plan of care and endorse it. Visit Charges OBSV E&M: [id number] Observation care discharge
--- NOTE | 2021-05-29 13:14 | CASEMGMT ---
Pt to be sent home on Xarelto and has been on this before. Pt is unsure if he used coupon card in past. Meds to [facility] retail pharmacy and coupon card was able to be applied and meds to bed. Suzan PANIAGUA CM
[2021-05-29] MEDS: Lisinopril 10 MG Tablet PO (17:56)
== END 2021-05-29 19:55 | disposition home or self-care (01) ==
LOC: ED 18:22 → PCU 19:15
PROVIDERS: Nurse Practitioner Family; Admitting Provider Internal Medicine; Emergency Provider Emergency Medicine; PCP Family Medicine; Visit Provider Internal Medicine
DX: I95.1 Orthostatic hypotension (principal); N17.9 Acute kidney failure, unspecified; R06.02 Shortness of breath; C90.00 Multiple myeloma not having achieved remission; G47.33 Obstructive sleep apnea (adult) (pediatric); I10 Essential (primary) hypertension; K76.0 Fatty (change of) liver, not elsewhere classified; F10.11 Alcohol abuse, in remission; E44.0 Moderate protein-calorie malnutrition; R19.7 Diarrhea, unspecified; I82.402 Acute embolism and thrombosis of unspecified deep veins of left lower extremity; D61.818 Other pancytopenia; N40.1 Benign prostatic hyperplasia with lower urinary tract symptoms; Z79.899 Other long term (current) drug therapy; Z79.82 Long term (current) use of aspirin; Z86.19 Personal history of other infectious and parasitic diseases; F41.9 Anxiety disorder, unspecified; F32.9 Major depressive disorder, single episode, unspecified; E87.2 Acidosis; Z68.24 Body mass index [BMI] 24.0-24.9, adult
CPT/HCPCS: 36415; 36430; 36591; 70450; 71045; 71275; 80048; 80053; 82274; 83605; 85018; 85025; 86850; 86870; 86900; 86901; 86902; 86920; 86921; 86922; 87635; 93005; 93306; 93971; 96360; 96361; 96372; 97110; 97162; 97166; 97802; 99218; 99285; J7030; J7040; P9016; Q9967; U0005; A4216; G0378; U0003

== ENCOUNTER → 2021-05-31 09:06 | Outpatient (CLI) | payer OTHER, SELFPAY ==
[2021-05-31 09:37] LABS: Hematocrit 31.6 % (40-54); Hemoglobin 10.1 g/dL (13.0-16.5); Mean Corpuscular Hgb 29.7 pg (27.0-32.0); Mean Corpuscular Volume 92.9 fL (80-94); Platelet Count 136 K/mm3 (150-450); RBC Distribution Width CV 16.3 % (11.6-14.6); RBC Distribution Width SD 55.5 fl (35.1-43.9)
== END ==
PROVIDERS: PCP Family Medicine
DX: Z85.79 Personal history of other malignant neoplasms of lymphoid, hematopoietic and related tissues (principal)
CPT/HCPCS: 36415; 85027

== ENCOUNTER 2021-06-10 15:18 | Emergency (ER) | payer MEDICARE, BC, SELFPAY ==
[2021-06-10 15:18] VITALS: BP 133/80; PULSE 92; RESP 18; TEMP 37; O2SAT 97; BMI 25.9
[2021-06-10 16:11] LABS: Absolute Lymphocyte Count 1.49 X10^3/uL (0.83-4.51); Basophil# 0.02 X10^3/uL; Basophil% 0.5 % (0-1); Eosinophil# 0.09 X10^3/uL; Eosinophils% 2.3 % (0-5); Hematocrit 32.1 % (40-54); Hemoglobin 10.4 g/dL (13.0-16.5); Lymphocyte # 1.49 X10^3/ul (0.83-4.51); Lymphocyte % 37.7 % (19-41); Mean Corp Hgb Conc 32.4 g/dL (32-36); Mean Corpuscular Hgb 29.6 pg (27.0-32.0); Mean Corpuscular Volume 91.5 fL (80-94); Mean Platelet Vol. 11.1 fl (6.2-12.0); Monocyte# 0.31 X10^3/uL; Monocyte% 7.8 % (0-10); NRBC Flagged by Analyzer 0 % (0-5); Neutrophil # 2.02 X10^3/uL (2.7-7.7); Neutrophil % 51.2 % (47-70); Platelet Count 150 K/mm3 (150-450); RBC Distribution Width CV 17.2 % (11.6-14.6); RBC Distribution Width SD 58.2 fl (35.1-43.9); Red Blood Count 3.51 M/mm3 (4.6-6.2)
[2021-06-10] MEDS: Ondansetron 4 MG/2 ML Vial IV (16:17)
[2021-06-10] MEDS: Morphine 2 MG/ML Syringe IV (16:17)
[2021-06-10 16:26] LABS: Erythrocyte Sedimentation Rate 15 mm/hr (0-20)
[2021-06-10 16:27] LABS: Anion Gap 8 (5-15); BUN 14 mg/dL (7-18); BUN/Creat Ratio 15.3 RATIO (10-20); Calcium,Total 8.1 mg/dL (8.5-10.1); Chloride 102 mmol/L (98-107); Creatinine, Serum 0.92 mg/dL (0.70-1.30); EST Glomerular Filtration Rate 87 mL/min (>60); Est Glom Filt Rate - Afr Amer 105 mL/min (>60); Estimated Creatinine Clearance 84.35 ml/min; Glucose 108 mg/dL (74-106); Sodium Level 135 mmol/L (136-145)
--- NOTE | 2021-06-10 16:28 | RAD_ITS ---
STUDY: X-RAY - LEFT FOOT CLINICAL: Male, 70 years old. ? Osteomyelitis wound pain TECHNIQUE: 3 view(s) of the foot. COMPARISON: None. FINDINGS: There is near complete lateral dislocation of the distal phalanx of the fifth digit. Hammertoe deformities and lateral deviation noted in the second through fifth digits. A significant hallux valgus deformity is also present. Mild diffuse soft tissue swelling noted. Mild cortical spurring is seen in the mid foot and metatarsal bases. The bony structures are demineralized. No visualized cortical erosion or other signs of osteomyelitis. Normal talus, calcaneus, and tarsal bones. Normal visualized subtalar, talonavicular, calcaneocuboid, tarsal and tarsometatarsal articulations. RAD/Foot min 3 Views IMPRESSION: 1. Numerous chronic abnormalities. No visualized osteomyelitis. Electronically Signed: Hector Fulton MD at 17:44 EDT , Service support ,
[2021-06-10 16:38] LABS: Lactic Acid 1.2 mmol/L (0.4-1.9)
[2021-06-10 18:06] VITALS: BP 141/88; PULSE 98; RESP 12; TEMP 37.1; O2SAT 95
--- NOTE | 2021-06-10 18:24 | EX.ED.DYSGE1 ---
HPI History of Present Illness Chief Complaint: Wound Narrative Narrative: Patient is a 70-year-old male with past medical history of multiple myeloma. He receives monthly chemotherapy injections with his last round being approximately 6 weeks ago. He states he has noticed a few weeks ago that he was having redness and swelling to his left fifth digit of his foot. He states he then noticed there is been drainage and blood with increased pain and swelling and has concern for infection and therefore comes in for evaluation [facility] Medical History Acute deep vein thrombosis (DVT) of left lower extremity Anemia Essential (primary) hypertension ETOH abuse Fatty liver Multiple myeloma not having achieved remission Obstructive sleep apnea Orthostatic hypotension Pancytopenia Syncope Thrombocytopenia Home Medications albuterol sulfate 2 puff INHALATION Q4H PRN PRN 05/07/20 [History Last Taken Unknown] ferrous sulfate 325 mg PO QHS 06/18/20 [History Last Taken Unknown] allopurinol 300 mg PO DAILY 05/27/21 [History Last Taken Unknown] aspirin 81 mg PO DAILY 05/27/21 [History Last Taken Unknown] calcium carbonate-vitamin D3 [Calcium 500 + D] 1 tab PO BID 05/27/21 [History Last Taken Unknown] cholecalciferol (vitamin D3) [Vitamin D3] 25 mcg PO DAILY 05/27/21 [History Last Taken Unknown] dexamethasone 20 mg PO QWEEK 05/27/21 [History Last Taken Unknown] gabapentin 300 mg PO TID 05/27/21 [History Last Taken Unknown] lenalidomide 10 mg PO DAILY 05/27/21 [History Last Taken 05/24/21] lidocaine-prilocaine 1 applic TOPICAL DAILY 05/27/21 [History Last Taken Unknown] lisinopril 10 mg PO DAILY 05/27/21 [History Last Taken Unknown] oxybutynin chloride 10 mg PO DAILY 05/27/21 [History Last Taken Unknown] atenolol 25 mg PO QHS #0 tab 05/29/21 [Rx Last Taken Unknown] pantoprazole 40 mg PO DAILY #30 tab 05/29/21 [Rx Last Taken Unknown] rivaroxaban [Xarelto] 15 mg PO DAILY #42 tab 05/29/21 [Rx Last Taken Unknown] rivaroxaban [Xarelto] 20 mg PO DAILY #30 tab 05/29/21 [Rx Last Taken Unknown] amoxicillin-pot clavulanate [Augmentin] 1 tab PO BID #20 tab 06/10/21 [Rx Last Taken Unknown] hydrocodone-acetaminophen 1 tab PO Q6H PRN 3 Days #12 tab 06/10/21 [Rx Last Taken Unknown] Allergy/AdvReac Type Severity Reaction Status Date / Time No Known Allergies Allergy Verified 06/10/21 15:18 Family History (Reviewed 05/27/21 @ 18:50 by Krystina Hayes SUBSCRIPTION CREW LEADER, SUBSCRIPTION CREW LEADER-C) Mother Heart disease Hypertension Father Hypertension Social History (Updated 05/27/21 @ 18:50 by Krystina Hayes NP, SUBSCRIPTION CREW LEADER-C) household members: spouse Smoking Status: Never smoker alcohol intake: former details: sober substance use type: does not use ROS ROS ED Constitutional Constitutional ED: Denies chills or fever(s) ENT ENT ED: Denies sore throat Cardiovascular Cardiovascular: Denies chest pain Respiratory/Chest Respiratory/Chest: Denies cough or dyspnea Gastrointestinal Gastrointestinal: Denies abdominal pain, diarrhea, nausea or vomiting Musculoskeletal Musculoskeletal: Reports other Details: Positive left foot pain ; Denies myalgias Integumentary Reports other Details: Positive left foot wound ; Denies rash Neurologic Neurologic: Denies headache(s) Hematologic/Lymphatic Hematologic/Lymphatic: Reports easy bleeding and easy bruising EXAM Physical Exam Const Vital Signs: 06/10/21 15:18 06/10/21 18:06 Temperature 98.6 F 98.8 F Temperature Source Temporal Oral Pulse Rate 92 98 Respiratory Rate 18 12 Blood Pressure 133/80 H 141/88 H Blood Pressure Mean 97 105 Pulse Ox 97 95 Oxygen Delivery Method Room Air Room Air Positive well nourished and well developed General Appearance ED: well developed HEENT Reports moist mucous membranes Eyes PERRL and EOMs intact bilaterally Neck supple Resp normal respiratory effort and clear to auscultation bilaterally Cardio regular rate and regular rhythm GI normal to inspection, nondistended, normoactive bowel sounds, non-tender and non-distended Auscultation: normoactive bowel sounds Palpation: soft Extremity Extremity Narrative: Patient has chronic swelling to the left lower leg secondary to a persistent blood clot. He has new swelling to the left fifth digit of the foot with increased erythema and warmth compared to the right. There is a circular dermal layer deep ulcer along the medial aspect without active purulent drainage or bleeding. No lymphangitic streaking noted no crepitance palpated. Neuro oriented x3 and CN's II-XII intact bilaterally Sensorium / Orientation: alert Psych mental status grossly normal Skin Skin Narrative: Soft tissue changes to the left fifth digit consistent with cellulitis as documented above MDM MDM MDM Narrative Medical decision making narrative: Patient presented to the ER in no acute distress. He is immunosuppressed and his physical exam is consistent with a developing infection. As it is on his foot and he is immunosuppressed there is concern this could be development of gas gangrene or osteomyelitis so elected perform basic laboratory studies and an x-ray. Labs show decreased white blood cell count at 4 but this is actually better than his recent values. His CRP is elevated but his lactic acid is normal and his neutrophils are also normal. His x-ray showed bony deformities and soft tissue swelling without gas or signs of osteomyelitis. Therefore at this time as he does not have changes to suggest osteomyelitis neutropenia or systemic infection I do not feel he needs kept in the hospital. He will be given a dose of vancomycin and Zosyn in the ER and I will place him on Augmentin and he can follow with podiatry for repeat evaluation Lab Data Attestation: I reviewed the patient's lab results. Labs: Laboratory Results - last 24 hr 06/10/21 06/10/21 06/10/21 15:53 15:53 15:53 WBC 4.0 L RBC 3.51 L Hgb 10.4 L Hct 32.1 L MCV 91.5 MCH 29.6 MCHC 32.4 RDW Std Deviation 58.2 H RDW Coeff of [place] 17.2 H Plt Count 150 MPV 11.1 Immature Gran % (Auto) 0.500 Neut % (Auto) 51.2 Lymph % (Auto) 37.7 [place] % (Auto) 7.8 Eos % (Auto) 2.3 Baso % (Auto) 0.5 Absolute Neuts (auto) 2.0 Absolute Lymphs (auto) 1.49 Nucleated RBC % 0 ESR 15 Sodium 135 L Potassium 4.0 Chloride 102 Carbon Dioxide 25.0 Anion Gap 8 BUN 14 Creatinine 0.92 Estim Creat Clear Calc 84.35 Est GFR (MDRD) Af Amer 105 Est GFR (MDRD) Non-Af 87 BUN/Creatinine Ratio 15.3 Glucose 108 H Lactic Acid 1.2 Calcium 8.1 L C-React Prot Ext Range 44.20 H Radiography Diagnostic Testing: Clinical Impression(s) from Imaging Studies Foot X-Ray 06/10/21 16:28 IMPRESSION: 1. Numerous chronic abnormalities. No visualized osteomyelitis. Electronically Signed: Hector Fulton MD at 17:44 EDT , Service support , Discharge Plan Triage Chief Complaint: Wound ED Provider: Moe Montano Dx/Rx/DC Orders Clinical Impression: Cellulitis of fifth toe of left foot Instructions: ED Cellulitis Prescriptions: New amoxicillin-pot clavulanate [Augmentin] 875-125 mg tablet 1 tab PO BID Qty: 20 RF: 0 hydrocodone-acetaminophen 5-325 mg tablet 1 tab PO Q6H PRN (Reason: pain) 3 Days Qty: 12 RF: 0 No Action albuterol sulfate 1 INHALER inhaler 2 puff inhalation Q4H PRN PRN (Reason: wheezing/SOB) RF: 0 ferrous sulfate 325 MG tablet 325 mg PO QHS RF: 0 allopurinol 300 mg tablet 300 mg PO DAILY RF: 0 oxybutynin chloride 10 mg tablet extended release 24hr 10 mg PO DAILY RF: 0 lidocaine-prilocaine 2.5-2.5 % cream 1 applic topical DAILY RF: 0 dexamethasone 4 mg tablet 20 mg PO QWEEK RF: 0 lisinopril 10 mg tablet 10 mg PO DAILY RF: 0 aspirin 81 mg Tablet 81 mg PO DAILY RF: 0 Hold Instructions: Resume on 06/12/21. Hold during the duration of anticoagulation. lenalidomide 10 mg Capsule 10 mg PO DAILY RF: 0 cholecalciferol (vitamin D3) [Vitamin D3] 25 mcg (1,000 unit) Tablet 25 mcg PO DAILY RF: 0 calcium carbonate-vitamin D3 [Calcium 500 + D] 500 mg(1,250mg) -400 unit Tablet 1 tab PO BID RF: 0 gabapentin 100 MG capsule 300 mg PO TID RF: 0 pantoprazole 40 mg Tablet,Delayed Release (Dr/Ec) 40 mg PO DAILY Qty: 30 RF: 0 Xarelto 15 mg tablet 15 mg PO DAILY Qty: 42 RF: 0 Xarelto 20 mg tablet 20 mg PO DAILY Qty: 30 RF: 0 atenolol 25 MG tablet 25 mg PO QHS Qty: 0 RF: 0 Primary Care Provider: Onur Garcia Referrals: Onur Garcia MD [Primary Care Provider] - Roland Saleh DPM [STAFF PHYSICIAN] - 3-5 Days (For repeat evaluation regarding your left toe infection) Disposition Disposition: Home, Self Care
[2021-06-10] MEDS: HYDROcodone Bitartrate/Apap 5/325 Tablet PO (20:12)
== END 2021-06-10 20:28 | disposition home or self-care (01) ==
PROVIDERS: Emergency Provider Emergency Medicine; PCP Family Medicine
DX: L03.032 Cellulitis of left toe (principal); L97.521 Non-pressure chronic ulcer of other part of left foot limited to breakdown of skin; I82.502 Chronic embolism and thrombosis of unspecified deep veins of left lower extremity; C90.00 Multiple myeloma not having achieved remission; I10 Essential (primary) hypertension; K76.0 Fatty (change of) liver, not elsewhere classified; G47.33 Obstructive sleep apnea (adult) (pediatric); Z79.52 Long term (current) use of systemic steroids; Z79.01 Long term (current) use of anticoagulants; Z79.82 Long term (current) use of aspirin; Z79.899 Other long term (current) drug therapy; Z86.718 Personal history of other venous thrombosis and embolism
CPT/HCPCS: 36591; 73630; 80048; 83605; 85025; 85652; 86140; 87040; 96365; 96366; 96367; 96375; 99282; J7040; J7050; A4216; J2405

== ENCOUNTER → 2021-08-24 14:20 | Outpatient (CLI) | payer MEDICARE, BC, SELFPAY ==
--- NOTE | 2021-08-24 14:26 | RAD_ITS ---
STUDY: X-RAY - LEFT FOOT CLINICAL: Male, 70 years old. Right foot pain. TECHNIQUE: 3 view(s) of the foot. COMPARISON: None. FINDINGS: Osteopenia. Superior and inferior calcaneal spurs. Moderate arthrosis of the tibiotalar and subtalar joints. Mild arthrosis of the midfoot. Mild arthrosis of the TMT joints. Moderate arthrosis of the MTP and IP joints with hammertoe deformities. Marked hallux valgus deformity. The soft tissue structures are unremarkable. RAD/Foot min 3 Views IMPRESSION: Osteopenia with moderate osteoarthritic changes. Calcaneal spurs. Marked hallux valgus deformity. No acute abnormality, erosive changes, chondrocalcinosis or periostitis. Electronically Signed: Rene Randall MD at 10:36 EST , Service support ,
--- NOTE | 2021-08-24 14:26 | RAD_ITS ---
STUDY: X-RAY - LEFT ANKLE REASON FOR EXAM: Male, 70 years old. Ankle pain. TECHNIQUE: 3 view(s) of the ankle. COMPARISON: Left foot images dated 06/10/2021. FINDINGS: Osteopenia. Superior and inferior calcaneal spurs. Moderate arthrosis of the tibiotalar and subtalar joints. Moderate arthrosis of the midfoot. Diffuse soft tissue swelling. RAD/Ankle min 3 Views IMPRESSION: Osteopenia with osteoarthritic changes and diffuse soft tissue swelling. Calcaneal Spurs. No acute finding. Electronically Signed: Rene Randall MD at 10:40 EST , Service support ,
--- NOTE | 2021-08-24 14:30 | RAD_ITS ---
STUDY: X-RAY - RIGHT FOOT CLINICAL: Male, 70 years old. Right foot pain. TECHNIQUE: 3 view(s) of the foot. COMPARISON: None. FINDINGS: Osteopenia. Superior and inferior calcaneal spurs. Moderate arthrosis of the tibiotalar and subtalar joints. Mild arthrosis of the midfoot. Mild arthrosis of the TMT joints. Moderate arthrosis of the MTP and IP joints with hammertoe deformities. Hallux valgus deformity. The soft tissue structures are unremarkable. RAD/Foot min 3 Views IMPRESSION: Osteopenia with moderate osteoarthritic changes. Calcaneal spurs. Hallux valgus deformity. No acute abnormality, erosive changes, chondrocalcinosis or periostitis. Electronically Signed: Rene Randall MD at 10:35 EST , Service support ,
--- NOTE | 2021-08-24 14:30 | RAD_ITS ---
STUDY: X-RAY - RIGHT ANKLE REASON FOR EXAM: Male, 70 years old. Ankle pain. TECHNIQUE: 3 view(s) of the ankle. COMPARISON: None. FINDINGS: Osteopenia. Superior and inferior calcaneal spurs. Moderate arthrosis of the tibiotalar and subtalar joints. Arthrosis of the midfoot. Diffuse soft tissue swelling. Vascular calcification. RAD/Ankle min 3 Views IMPRESSION: Osteopenia with calcaneal spurs and moderate osteoarthritic changes. Diffuse soft tissue swelling. No acute abnormality. Electronically Signed: Rene Randall MD at 10:37 EST , Service support ,
== END ==
PROVIDERS: PCP Family Medicine; Referring Provider Podiatrist Foot & Ankle Surgery; Visit Provider Podiatrist Foot & Ankle Surgery
DX: M79.671 Pain in right foot (principal); M79.672 Pain in left foot
CPT/HCPCS: 73610; 73630

== ENCOUNTER 2021-10-09 10:44 | Inpatient (IN) | payer OTHER, SELFPAY ==
[2021-10-09] VITALS (12 sets, daily range): BP systolic 101–143; BP diastolic 53–85; PULSE 78–95; RESP 12–20; TEMP 35.8–38; O2SAT 95–98; BMI 25.5; BMI 23.5
--- NOTE | 2021-10-09 10:47 | EDS_ITS ---
HPI <CHERRY Ramachandran - Last Filed: 10/09/21 12:58> History of Present Illness Chief Complaint: Abn Labs Narrative Narrative: 71-year-old male with PMH of HTN, HLD, pancytopenia, A. fib, alcohol abuse, multiple myeloma, DVT on Xarelto presents with abnormal labs. He was sent in [facility] in [place] where he is staying after a recent hospital admission for Covid-19, alcohol detox, and UTI. Yesterday he had outpatient labs showing hemoglobin of 6.7 and magnesium of 1.1. He states he has required blood transfusions several months ago. Today he has no acute complaints. He denies hematemesis, hemoptysis, hematuria, melena, or hematoche filiberto. He has a follow-up with hematology Dr. Brunson on 10/14 and states his multiple myeloma is in remission. PFSH <CHERRY Ramachandran - Last Filed: 10/09/21 12:58> [facility] Medical History Acute deep vein thrombosis (DVT) of left lower extremity Anemia Essential (primary) hypertension ETOH abuse Fatty liver Idiopathic gout Multiple myeloma not having achieved remission Obstructive sleep apnea Orthostatic hypotension Pancytopenia Syncope Thrombocytopenia Home Medications ferrous sulfate 325 mg PO QHS 06/18/20 [History Last Taken Unknown] allopurinol 300 mg PO DAILY 05/27/21 [History Last Taken Unknown] calcium carbonate-vitamin D3 [Calcium 500 + D] 1 tab PO BID 05/27/21 [History Last Taken Unknown] gabapentin 300 mg PO TID 05/27/21 [History Last Taken Unknown] atenolol 12.5 mg PO QHS 10/09/21 [History Last Taken Unknown] folic acid 1 mg PO DAILY 10/09/21 [History Last Taken Unknown] rivaroxaban [Xarelto] 20 mg PO QHS 10/09/21 [History Last Taken Unknown] sertraline 100 mg PO DAILY 10/09/21 [History Last Taken Unknown] thiamine HCl (vitamin B1) 100 mg PO DAILY 10/09/21 [History Last Taken Unknown] Allergy/AdvReac Type Severity Reaction Status Date / Time No Known Allergies Allergy Verified 10/09/21 10:50 Family History Mother Heart disease Hypertension Father Hypertension Social History household members: spouse Smoking Status: Never smoker alcohol intake: former details: sober substance use type: does not use ROS <CHERRY Ramachandran - Last Filed: 10/09/21 12:58> ROS ED ROS Narrative Constitutional: Negative for fever, chills, malaise. Eyes: Negative for visual change. ENT: Negative for sore throat, ear pain, rhinorrhea. CVS: Negative for palpitations, chest pain, syncope. Respiratory: Negative for shortness of breath, cough, orthopnea. GI: Negative for abdominal pain, nausea, vomiting, diarrhea, constipation, melena, hematochezia. : Negative for dysuria, hematuria or frequency. Neuro: Negative for headache, motor/sensory dysfunction. Skin: Negative for rash, abscess, or wound. Heme: Negative for easy bruising, bleeding, lymphadenopathy. EXAM <CHERRY Ramachandran - Last Filed: 10/09/21 12:58> Physical Exam Narrative Exam Narrative: CONST: Patient sitting in no acute distress. EYES: Normal inspection. ENT: Normal inspection, moist mucous membranes. NECK: Normal inspection. RESP: No respiratory distress, CTAB. CVS: Regular rate and rhythm, no murmur, no gallop. ABD: Soft and nontender, no guarding or rebound, nondistended, no hepatosplenomegaly. Back: Normal inspection. : YUDITH has light brown stool with no masses or tenderness, small nonthrombosed external hemorrhoid with no bleeding. SKIN: Color normal, no rash, warm, dry, intact. EXTREMITIES: BLLE have venous stasis changes, no pedal edema. 2+ radial and DP pulses. NEURO: Oriented x4. PSYCH: Normal affect. Const Vital Signs: 10/09/21 10:46 10/09/21 10:55 10/09/21 12:44 Temperature 97.8 F Temperature Source Temporal Pulse Rate 92 88 Respiratory Rate 20 H 18 Respiratory Effort Normal Non-Labored Respiratory Pattern Normal Blood Pressure 125/73 H 112/65 Blood Pressure Mean 90 80 Pulse Ox 96 97 Oxygen Delivery Method Room Air Room Air 10/09/21 13:58 Temperature 100.4 F H Temperature Source Temporal Pulse Rate 78 Respiratory Rate 18 Respiratory Effort Respiratory Pattern Blood Pressure 101/62 Blood Pressure Mean 75 Pulse Ox 96 Oxygen Delivery Method Room Air <Dr. Dami Eugene DO - Last Filed: 10/09/21 14:59> Physical Exam Const Vital Signs: 10/09/21 10:46 10/09/21 10:55 10/09/21 12:44 Temperature 97.8 F Temperature Source Temporal Pulse Rate 92 88 Respiratory Rate 20 H 18 Respiratory Effort Normal Non-Labored Respiratory Pattern Normal Blood Pressure 125/73 H 112/65 Blood Pressure Mean 90 80 Pulse Ox 96 97 Oxygen Delivery Method Room Air Room Air 10/09/21 13:58 Temperature 100.4 F H Temperature Source Temporal Pulse Rate 78 Respiratory Rate 18 Respiratory Effort Respiratory Pattern Blood Pressure 101/62 Blood Pressure Mean 75 Pulse Ox 96 Oxygen Delivery Method Room Air MDM <CHERRY Ramachandran - Last Filed: 10/09/21 12:58> MDM MDM Narrative Medical decision making narrative: Patient with history of multiple myeloma and A. fib/DVT on Xarelto presents with outpatient labs showing acute on chronic anemia and hypomagnesemia. He appears chronically ill but nontoxic. Vital signs are within normal limits. Medical exam shows chronic debility but otherwise unremarkable. Hemoccult shows medium brown stool but is positive and hemoglobin today is 7.0. His baseline in early September 2020 was 10.5 and has been slowly trending down. He reports colonoscopy several years ago which was normal. Magnesium was 1.1, other electrolytes and renal function unremarkable. Case was discussed with GI who recommended holding Xarelto and agreed there is no need to give stat blood in the ED with the national blood shortage. Case will be discussed with the hospitalist and he will be admitted for further work- up of GI bleed. He was given IV magnesium replacement and remains normotensive and stable for floor admission at this time. Lab Data Labs: Laboratory Results - last 24 hr 10/09/21 10/09/21 10/09/21 10:55 10:55 10:55 WBC 2.6 L RBC 2.24 L Hgb 7.0 L Hct 21.6 L MCV 96.4 H MCH 31.3 MCHC 32.4 RDW Std Deviation 57.1 H RDW Coeff of [place] 16.1 H Plt Count 114 L MPV 10.7 Immature Gran % (Auto) 0.800 Neut % (Auto) 61.4 Lymph % (Auto) 26.1 Bertie % (Auto) 7.4 Eos % (Auto) 4.3 Baso % (Auto) 0.0 Absolute Neuts (auto) 1.6 L Absolute Lymphs (auto) 0.67 L Nucleated RBC % 0 PT INR Sodium 134 L Potassium 3.8 Chloride 99 Carbon Dioxide 31.0 Anion Gap 4 L BUN 13 Creatinine 0.77 Estim Creat Clear Calc 76.52 Est GFR (MDRD) Af Amer 129 Est GFR (MDRD) Non-Af 107 BUN/Creatinine Ratio 16.9 Glucose 115 H Calcium 7.9 L Magnesium Cancelled Total Bilirubin 0.50 Direct Bilirubin 0.19 AST 31 ALT 43 Alkaline Phosphatase 194 H Total Protein 5.9 L Albumin 1.7 L Globulin 4.2 Ethyl Alcohol Blood Type O POSITIVE Antibody Screen NEGATIVE 10/09/21 10/09/21 10:55 11:30 WBC RBC Hgb Hct MCV MCH MCHC RDW Std Deviation RDW Coeff of [place] Plt Count MPV Immature Gran % (Auto) Neut % (Auto) Lymph % (Auto) Bertie % (Auto) Eos % (Auto) Baso % (Auto) Absolute Neuts (auto) Absolute Lymphs (auto) Nucleated RBC % PT 19.7 H INR 1.7 Sodium Potassium Chloride Carbon Dioxide Anion Gap BUN Creatinine Estim Creat Clear Calc Est GFR (MDRD) Af Amer Est GFR (MDRD) Non-Af BUN/Creatinine Ratio Glucose Calcium Magnesium Total Bilirubin Direct Bilirubin AST ALT Alkaline Phosphatase Total Protein Albumin Globulin Ethyl Alcohol 6.0 Blood Type Antibody Screen <Dr. Dami Eugene, DO - Last Filed: 10/09/21 14:59> [facility] Narrative Medical decision making narrative: Patient presenting with multiple myeloma, DVT in atrial fibrillation on Xarelto. Patient has no current complaints other than he feels a little bit weak. He was told that he is anemic and needed a blood transfusion. He is also told that he needed magnesium. Vital signs are stable and he is afebrile. His blood work shows his hemoglobin is 7.0. Patient was typed and screened. Hemoccult positive although the stool was noted to be brown. Renal function and electrolytes within normal limits. Patient does not have a leukocytosis and an cytopenic which is baseline for him. After speaking with Dr. Daniel he did not recommend transfusion at this time but did recommend holding Xarelto and monitoring H&H's. He did recommend admission as the patient is a GI bleed on Xarelto. After initial examination it was found that the patient had a low-grade fever of 100.4. Urinalysis was ordered at this time. Was noted that the patient had erythema over the left elbow over the left arm process although he has full range of motion this appears to be an olecranon bursitis. X-ray of the left elbow obtained does not show any acute fracture or subluxation on my interpretation and the radiologist does read this as likely bursitis. Patient had already been discussed with the hospitalist and is admitted. Urinalysis is pending on admission. Impression: 1. Acute blood loss anemia 2. GI bleed 3. Pancytopenia 4. Hypomagnesemia 5. Left olecranon bursitis Lab Data Attestation: I reviewed the patient's lab results. Labs: Laboratory Results - last 24 hr 10/09/21 10/09/21 10/09/21 10:55 10:55 10:55 WBC 2.6 L RBC 2.24 L Hgb 7.0 L Hct 21.6 L MCV 96.4 H MCH 31.3 MCHC 32.4 RDW Std Deviation 57.1 H RDW Coeff of [place] 16.1 H Plt Count 114 L MPV 10.7 Immature Gran % (Auto) 0.800 Neut % (Auto) 61.4 Lymph % (Auto) 26.1 Bertie % (Auto) 7.4 Eos % (Auto) 4.3 Baso % (Auto) 0.0 Absolute Neuts (auto) 1.6 L Absolute Lymphs (auto) 0.67 L Nucleated RBC % 0 PT INR Sodium 134 L Potassium 3.8 Chloride 99 Carbon Dioxide 31.0 Anion Gap 4 L BUN 13 Creatinine 0.77 Estim Creat Clear Calc 76.52 Est GFR (MDRD) Af Amer 129 Est GFR (MDRD) Non-Af 107 BUN/Creatinine Ratio 16.9 Glucose 115 H Calcium 7.9 L Magnesium Cancelled Total Bilirubin 0.50 Direct Bilirubin 0.19 AST 31 ALT 43 Alkaline Phosphatase 194 H Total Protein 5.9 L Albumin 1.7 L Globulin 4.2 Ethyl Alcohol Blood Type O POSITIVE Antibody Screen NEGATIVE 10/09/21 10/09/21 10:55 11:30 WBC RBC Hgb Hct MCV MCH MCHC RDW Std Deviation RDW Coeff of [place] Plt Count MPV Immature Gran % (Auto) Neut % (Auto) Lymph % (Auto) Bertie % (Auto) Eos % (Auto) Baso % (Auto) Absolute Neuts (auto) Absolute Lymphs (auto) Nucleated RBC % PT 19.7 H INR 1.7 Sodium Potassium Chloride Carbon Dioxide Anion Gap BUN Creatinine Estim Creat Clear Calc Est GFR (MDRD) Af Amer Est GFR (MDRD) Non-Af BUN/Creatinine Ratio Glucose Calcium Magnesium Total Bilirubin Direct Bilirubin AST ALT Alkaline Phosphatase Total Protein Albumin Globulin Ethyl Alcohol 6.0 Blood Type Antibody Screen Discharge Plan Dx/Rx/DC Orders Clinical Impression: Anemia, GI bleed, Pancytopenia, Hypomagnesemia Disposition Disposition: Acute Care Hospital [facility] Discharge Date/Time: 10/09/21 14:54
[2021-10-09 11:21] LABS: Absolute Lymphocyte Count 0.67 X10^3/uL (0.83-4.51); Absolute Neutrophil Count 1.6 X10^3/uL (2.0-7.7); Eosinophil# 0.11 X10^3/uL; Eosinophils% 4.3 % (0-5); Hematocrit 21.6 % (40-54); Lymphocyte # 0.67 X10^3/ul (0.83-4.51); Lymphocyte % 26.1 % (19-41); Mean Corp Hgb Conc 32.4 g/dL (32-36); Mean Corpuscular Hgb 31.3 pg (27.0-32.0); Mean Corpuscular Volume 96.4 fL (80-94); Mean Platelet Vol. 10.7 fl (6.2-12.0); Monocyte# 0.19 X10^3/uL; Monocyte% 7.4 % (0-10); NRBC Flagged by Analyzer 0 % (0-5); Neutrophil # 1.58 X10^3/uL (2.7-7.7); Neutrophil % 61.4 % (47-70); Platelet Count 114 K/mm3 (150-450); RBC Distribution Width CV 16.1 % (11.6-14.6); RBC Distribution Width SD 57.1 fl (35.1-43.9); Red Blood Count 2.24 M/mm3 (4.6-6.2); White Blood Count 2.6 K/mm3 (4.4-11.0)
[2021-10-09 11:33] LABS: International Normalized Ratio 1.7; Prothrombin Time (Protime)PT. 19.7 SECONDS (11.7-14.9)
[2021-10-09 11:38] LABS: AST(SGOT) 31 U/L (15-37); Alanine Aminotransfer ALT/SGPT 43 U/L (16-61); Albumin, Serum 1.7 g/dL (3.2-5.0); Alkaline Phosphatase 194 U/L (45-117); Anion Gap 4 (5-15); BUN 13 mg/dL (7-18); BUN/Creat Ratio 16.9 RATIO (10-20); Bilirubin, Direct 0.19 mg/dL (0.00-0.30); Calcium,Total 7.9 mg/dL (8.5-10.1); Chloride 99 mmol/L (98-107); Creatinine, Serum 0.77 mg/dL (0.70-1.30); EST Glomerular Filtration Rate 107 mL/min (>60); Est Glom Filt Rate - Afr Amer 129 mL/min (>60); Estimated Creatinine Clearance 76.52 ml/min; Globulin 4.2 g/dL (2.2-4.2); Glucose 115 mg/dL (74-106); Potassium 3.8 mmol/L (3.5-5.1); Protein, Total 5.9 g/dL (6.4-8.2); Sodium Level 134 mmol/L (136-145)
[2021-10-09] MEDS: Magnesium Sulfate 4gm/100mL 4 GM/100 ML IV.SOLN. IV (12:13)
--- NOTE | 2021-10-09 12:57 | NURSING ---
CALLED BED CONTROL AT [facility]. NO ANSWER, LEFT MESSAGE ON THEIR MACHINE
--- NOTE | 2021-10-09 13:12 | NURSING ---
MED SURG TERELETSKY ANEMIA, GIB
--- NOTE | 2021-10-09 14:10 | HP.PCM.HOS_ITS ---
Documented by User: Estrada CAREY 10/09/21 14:39 HPI - General General Date of Admission: 10/09/21 Date of Service: 10/09/21 Chief Complaint: Abnormal labs HPI Narrative NIDIA HICKMAN is a 71-year-old male who presents to the ED at [facility] on 10/09/2021 with a chief complaint of abnormal labs. Patient presents from [facility] in [place] which isai labs on patient yesterday and returned with a hemoglobin of 6.7 and magnesium of 1.1. Patient is completely denies hemoptysis, hematemesis, hematuria, hematochezia, melena or bright red blood per rectum. Patient does report that his right elbow has been red, tender to palpation and warm for the past 3 to 4 days. Patient does have a history of prior olecranon bursitis. 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 Patient has had a blood transfusion several months ago for anemia. Review of records from patient's SNF reveal that patient's anemia seems more chronic in nature with hemoglobin rates for the past month being variable between 6.6 and 8.5. Past medical history is significant for pancytopenia, multiple myeloma, prior DVT. Vital signs in the ED are stable, although patient temperature is mildly elevated at 100.4 ?F. CBC shows WBCs at 2.6, hemoglobin at 7.0 and platelets at 114. BMP shows sodium at 134, potassium 3.8, creatinine at 0.77, calcium at 7.9, magnesium level pending. Stool was occult positive in the ED. Patient was transfused magnesium while in the ED. PENDING SALE TO [facility] Medical History Acute deep vein thrombosis (DVT) of left lower extremity Anemia Essential (primary) hypertension ETOH abuse Fatty liver Idiopathic gout Multiple myeloma not having achieved remission Obstructive sleep apnea Orthostatic hypotension Pancytopenia Syncope Thrombocytopenia Home Medications ferrous sulfate 325 mg PO QHS 06/18/20 [History Last Taken Unknown] allopurinol 300 mg PO DAILY 05/27/21 [History Last Taken Unknown] calcium carbonate-vitamin D3 [Calcium 500 + D] 1 tab PO BID 05/27/21 [History Last Taken Unknown] gabapentin 300 mg PO TID 05/27/21 [History Last Taken Unknown] atenolol 12.5 mg PO QHS 10/09/21 [History Last Taken Unknown] folic acid 1 mg PO DAILY 10/09/21 [History Last Taken Unknown] rivaroxaban [Xarelto] 20 mg PO QHS 10/09/21 [History Last Taken Unknown] sertraline 100 mg PO DAILY 10/09/21 [History Last Taken Unknown] thiamine HCl (vitamin B1) 100 mg PO DAILY 10/09/21 [History Last Taken Unknown] Allergy/AdvReac Type Severity Reaction Status Date / Time No Known Allergies Allergy Verified 10/09/21 10:50 Family History Mother Heart disease Hypertension Father Hypertension Surgical History no surgical history Social History household members: spouse Smoking Status: Never smoker alcohol intake: former details: sober substance use type: does not use ROS Constitutional Constitutional: Denies anorexia, change in weight, chills, fatigue, fever(s), malaise, night sweats, weakness or other Eyes Eyes: Denies blurry vision, change in eye color, change in vision, discharge from eye(s), double vision, erythema, eye pain, loss of vision or other ENT HEENT: Denies abnormal hearing, dysphagia, ear pain, epistaxis, headache(s), hearing loss, nasal congestion, nasal discharge, post nasal drip, sinus pressure, sore throat or other Cardiovascular Cardiovascular: Denies chest pain, claudication, dyspnea on exertion, edema, lightheadedness, orthopnea, palpitations, paroxysmal nocturnal dyspnea, rapid heart rate, syncope or other Respiratory/Chest Respiratory/Chest: Denies cough, dyspnea, excessive phlegm production, hemoptysis, productive cough, shortness of breath at rest, shortness of breath with exertion, wheezing or other Gastrointestinal Gastrointestinal: Denies abdominal pain, coffee ground emesis, constipation, diarrhea, dyspepsia, hematemesis, hematochezia, loose stools, melena, nausea, vomiting or other Genitourinary Genitourinary: Denies burning urination, difficulty urinating, dysuria, hematuria, nocturia, urinary frequency, urinary hesitancy, urinary incontinence, urinary urgency or other Musculoskeletal Musculoskeletal: Reports joint pain and joint stiffness Neurologic Neurologic: Denies abnormal gait, abnormal speech, confusion, disequilibrium, dizziness, focal weakness, headache(s), numbness, paresthesias, seizure-like activity, seizures, syncope, tingling, tremor(s) or other Psychiatric Psychiatric: Denies anxiety, depression, homicidal ideation, suicidal ideation or other Endocrine Endocrinology: Denies change in body appearance, cold intolerance, excessive sweating, heat intolerance, polydipsia, polyuria or other Vital Signs Vital Signs Vital Signs: 10/09/21 10:46 10/09/21 10:55 10/09/21 12:44 Temperature 97.8 F Temperature Source Temporal Pulse Rate 92 88 Respiratory Rate 20 H 18 Respiratory Effort Normal Non-Labored Respiratory Pattern Normal Blood Pressure 125/73 H 112/65 Blood Pressure Mean 90 80 Pulse Ox 96 97 Oxygen Delivery Method Room Air Room Air 10/09/21 13:58 Temperature 100.4 F H Temperature Source Temporal Pulse Rate 78 Respiratory Rate 18 Respiratory Effort Respiratory Pattern Blood Pressure 101/62 Blood Pressure Mean 75 Pulse Ox 96 Oxygen Delivery Method Room Air Weight Weight: 188 lb 4.396 oz Body Mass Index (BMI) 25.5 Physical Exam Const alert and oriented x3 General Appearance: cooperative HEENT normocephalic, head/scalp atraumatic and hearing grossly normal bilaterally Eyes PERRL, EOMs intact bilaterally and conjunctivae normal Neck no lymphadenopathy, supple and no JVD Resp normal respiratory effort, no retractions, no use of accessory muscles and clear to auscultation bilaterally Cardio regular rate, regular rhythm, no gallops and no JVD GI normal to inspection, nondistended, normoactive bowel sounds, soft to palpation and non-tender Extremity Extremity Narrative: Right elbow is erythematous, tender to palpation and warm to touch. Skin Skin Narrative: See extremity. Neuro CN's II-XII intact bilaterally Psych affect normal Results Lab / Micro Data Result Diagrams: 10/09/21 10:55 10/09/21 10:55 Labs: Laboratory Results - last 24 hr 10/09/21 10:55: WBC 2.6 L, RBC 2.24 L, Hgb 7.0 L, Hct 21.6 L, MCV 96.4 H, MCH 31.3, MCHC 32.4, RDW Std Deviation 57.1 H, RDW Coeff of [place] 16.1 H, Plt Count 114 L, MPV 10.7, Immature Gran % (Auto) 0.800, Neut % (Auto) 61.4, Lymph % (Auto) 26.1, Elliott % (Auto) 7.4, Eos % (Auto) 4.3, Baso % (Auto) 0.0, Absolute Neuts (auto) 1.6 L, Absolute Lymphs (auto) 0.67 L, Nucleated RBC % 0 10/09/21 10:55: Sodium 134 L, Potassium 3.8, Chloride 99, Carbon Dioxide 31.0, Anion Gap 4 L, BUN 13, Creatinine 0.77, Estim Creat Clear Calc 76.52, Est GFR (MDRD) Af Amer 129, Est GFR (MDRD) Non-Af 107, BUN/Creatinine Ratio 16.9, Glucose 115 H, Calcium 7.9 L, Magnesium Cancelled, Total Bilirubin 0.50, Direct Bilirubin 0.19, AST 31, ALT 43, Alkaline Phosphatase 194 H, Total Protein 5.9 L, Albumin 1.7 L, Globulin 4.2 10/09/21 10:55: Blood Type O POSITIVE, Antibody Screen NEGATIVE 10/09/21 10:55: PT 19.7 H, INR 1.7 10/09/21 11:30: Ethyl Alcohol 6.0 Micro: Microbiology 10/09/21 10:55 Stool Stool Occult Blood (CHILO) - Final Occult Blood Positive Assessment & Plan Assessment/Plan (1) Acute blood loss anemia: (2) Anemia: (3) GI bleed: PLAN: Patient is a 71-year-old male who presents to the ED at [facility] on 10/09/2021 for evaluation and management of acute on chronic anemia. 1) acute on chronic normocytic anemia Patient presents from [facility] in [place] with a hemoglobin of 6.7 drawn on 10/08. Patient is without any hematemesis, hematochezia, hemoptysis, hematuria, melena or bright red blood per rectum. Patient is anticoagulated on Xarelto for DVT. Review of records from [facility] reveals that for the past month patient has had consistently low hemoglobins ranging from 6.6-8.5, which would appear to make patient's anemia more chronic in nature. Patient with occult positive stool in the ED. [facility], initiate p.o. pantoprazole, hold home Eliquis, GI consult ordered, IV fluids ordered, initiate clear liquid diet, n.p.o. at midnight on 10/11, CBC and BMP in a.m., PT/OT eval ordered, case management following. 2) hypomagnesemia Records from long-term show that patient's magnesium was 1.1 on 10/08. Magnesium level pending. IV magnesium given in ED. Repeat magnesium in a.m. 3) pancytopenia WBC is currently 2.6, hemoglobin 7.0 and platelets at 114. Likely related to patient's multiple myeloma. Follows with outpatient oncologist. We will continue to monitor. 3) prior history of DVT Patient is anticoagulated on Eliquis, will obtain Dopplers of the lower extremities to assess for status of DVTs, hold Eliquis due to #1. 4) multiple myeloma Follows with Dr. Brunson, has completed chemotherapy regimen. 5) HTN Stable, continue atenolol. 6) depression/anxiety Continue sertraline. DVT prophylaxis - SCDs, chemoprophylaxis on hold as above. CODE STATUS: Full code Patient seen by Estrada Andrews PA-C, under the supervision of Dr. Lawton. Time spent on patient care: 25 minutes. Documented by User: Dr. Erasmo Lawton, 10/09/21 17:51 HPI - General General Date of Admission: 10/09/21 PENDING SALE TO [facility] Medical History Acute deep vein thrombosis (DVT) of left lower extremity Anemia Essential (primary) hypertension ETOH abuse Fatty liver Idiopathic gout Multiple myeloma not having achieved remission Obstructive sleep apnea Orthostatic hypotension Pancytopenia Syncope Thrombocytopenia Home Medications ferrous sulfate 325 mg PO QHS 06/18/20 [History Last Taken Unknown] allopurinol 300 mg PO DAILY 05/27/21 [History Last Taken Unknown] calcium carbonate-vitamin D3 [Calcium 500 + D] 1 tab PO BID 05/27/21 [History Last Taken Unknown] gabapentin 300 mg PO TID 05/27/21 [History Last Taken Unknown] atenolol 12.5 mg PO QHS 10/09/21 [History Last Taken Unknown] folic acid 1 mg PO DAILY 10/09/21 [History Last Taken Unknown] rivaroxaban [Xarelto] 20 mg PO QHS 10/09/21 [History Last Taken Unknown] sertraline 100 mg PO DAILY 10/09/21 [History Last Taken Unknown] thiamine HCl (vitamin B1) 100 mg PO DAILY 10/09/21 [History Last Taken Unknown] Allergy/AdvReac Type Severity Reaction Status Date / Time No Known Allergies Allergy Verified 10/09/21 10:50 Family History Mother Heart disease Hypertension Father Hypertension Surgical History no surgical history Social History household members: spouse Smoking Status: Never smoker alcohol intake: former details: sober substance use type: does not use Results Lab / Micro Data Result Diagrams: 10/09/21 10:55 10/09/21 10:55 Charges/Coding Addendum Addendum: Patient was seen and examined independently of Estrada Andrews, he was brought to the emergency room today at [facility] due to a bnormal labs obtained at an extended care facility where the patient was undergoing inpatient rehab services. According to his long-term, patient was recently at [facility] 09/19/2021 and released to the long-term on 09/23/2021. He had COVID-to their knowledge she was not on any oxygen, and had new onset atrial fibrillation and anemia. Patient has been getting blood counts done at the long-term due to his past history of multiple myeloma and anemia, on 09/23/2021, his hemoglobin was 8.3, on 10/01/2021, the patient's hemoglobin was 8.5, and on 10/07/2021, his hemoglobin was 6.6. On 10/08/2021, the patient's hemoglobin was 6.7. Patient is on Xarelto due to a past history of DVT and I assume is atrial fibrillation. Patient is in the memory unit at the long-term according to nurses, they felt that the patient had dementia. On examination he appeared older than his stated age. Vital signs as documented. Skin warm and dry and without overt rashes. Neck without JVD, neck was supple, trachea midline, thyroid was normal. Lungs clear bilaterally, normal air movement was noted. Heart exam notable for regular rhythm, normal sounds and absence of murmurs, rubs or gallops. Abdomen unremarkable and without evidence of organomegaly, masses, or abdominal aortic enlargement. Bowel sounds are present, abdomen is not distended. Extremities nonedematous, no cyanosis was noted, no clubbing was noted. Neuro: Cranial nerves II through XII are grossly intact, no focal motor deficits were noted, sensation to light touch and pinprick intact, motor exam 5/5 throughout. Psych: Patient is alert, he is oriented x3, he does not appear to be anxious or depressed. Work-up in the emergency room included a CBC which was abnormal for hemoglobin of 7, white blood cell count was 2.6, platelet count was 114,000. Chemistry panel was unremarkable except for an alkaline phosphatase of 194, albumin of 1.7, and a total protein of 5.9. Impression: #1 chronic anemia-etiology unclear at this point, I will transfuse the patient 1 unit of packed red blood cells #2 Hemoccult positive stool-patient will be seen by GI, he will go undergo an EGD and a colonoscopy #3 multiple myeloma-patient sees outpatient oncology #4 paroxysmal atrial fibrillation-patient currently in sinus rhythm, patient Xarelto was held #5 essential hypertension-current medications will be continued #6 cognitive impairment issues-Per long-term, patient appears alert and oriented here #7 generalized debility-secondary to multiple medical problems, PT and OT will see the patient #8 past history of ethanol abuse-patient currently resides in an extended care facility for rehab services Patient will be admitted for chronic blood loss anemia-etiology is unclear at this point but he did have a Hemoccult positive stool in the emergency room when he was examined. According to the long-term, he has had no rectal bleeding or signs of melena. Gastroenterology was contacted by the emergency room physician and has agreed to see the patient, he will need to undergo an EGD and a colonoscopy due to the fact he is on Xarelto. Because of this anemia most probably is going to be his chronic multiple myeloma. I have reviewed Estrada Andrews's history and physical including his medical assessment and plan of care and with the above additions endorse it. Total clinical time spent by myself reviewing the patient's data from the long-term as well as the hospital data here, addressing the patient's medical issues, and collaborating with the patient's care team: 55 minutes Visit Charges Inpatient E&M: [id number] Init Hosp L3
--- NOTE | 2021-10-09 14:10 | RAD_ITS ---
STUDY: X-RAY - RIGHT ELBOW REASON FOR EXAM: Male, 71 years old. Erythema w/ tenderness TECHNIQUE: 2 view(s) of the elbow. COMPARISON: None. FINDINGS: There is demineralization of the visualized humerus, radius and ulna. There is degenerative arthrosis of the radiocapitellar and ulnotrochlear articulations. There are visualized calcifications or enthesopathy at the bilateral medial and lateral collateral ligaments of the elbow. There is calcification at the level of the olecranon compatible with enthesopathy. There are well-corticated mildly irregular borders which may represent an age-indeterminate possibly old injury. There is a bulbous appearance of the soft tissues suggesting bursitis. There is a small joint effusion. RAD/Elbow 2 Views IMPRESSION: Mild effusion. Findings consistent with bursitis. Age-indeterminate injury, likely chronic, of the enthesopathy at the level of the olecranon. No visualized acute fracture. Electronically Signed: Skye Mosley MD at 14:27 EST Reading Location ID and State: [facility] / [place] Tel , Service support ,
--- NOTE | 2021-10-09 14:26 | VDLE_ITS ---
Reason For Study: Pulmonary embolism RIGHT LEFT GSV is normal. GSV is normal. CFV is compressible, spontaneous, phasic, CFV is compressible, spontaneous, phasic, competent and demonstrates normal competent, and demonstrates normal augmentation. augmentation. FV is compressible, spontaneous, phasic, FV is compressible, spontaneous, phasic, competent and demonstrates normal competent and demonstrates normal augmentation. augmentation. POP V is compressible, spontaneous, phasic, POP V is compressible, spontaneous, phasic, competent and demonstrates normal competent and demonstrates normal augmentation. augmentation. T/P Trunk is compressible. T/P Trunk is compressible. PTV is compressible. PTV is compressible. RT PerV is compressible. LT PerV is compressible. Procedure This is a venous duplex using B-mode, color flow and spectral Doppler. Exam performed portable in patient room. A preliminary report was called and/or faxed to [facility]. VL/Venous Duplex US - Rasta Extrem Interpretation Summary No evidence for acute deep venous thrombosis bilateral lower extremities with p atent and compressible bilateral great saphenous veins. Ordering Physician: Estrada Andrews Referring Physician: Mars Garcia Performed By: Gladys Harley RVT
[2021-10-09] MEDS: 0.9% Normal Saline 1,000 ML 75 ML IV (15:39)
[2021-10-09] MEDS: Ferrous Sulfate 325 MG Tablet PO (16:16)
[2021-10-09] MEDS: Atenolol 25 MG Tablet 12.5 MG PO (21:27)
[2021-10-09] MEDS: Pantoprazole Sodium 40 MG Tablet PO (21:27)
[2021-10-09] MEDS: Gabapentin 300 MG Capsule PO (21:27)
[2021-10-10] VITALS (9 sets, daily range): BP systolic 103–154; BP diastolic 65–82; PULSE 72–92; RESP 16–18; TEMP 36.4–37.2; O2SAT 95–100
[2021-10-10] MEDS: 0.9% Normal Saline 1,000 ML 75 ML IV ×2 (06:25→17:10)
[2021-10-10] MEDS: Gabapentin 300 MG Capsule PO ×3 (06:26→20:57)
[2021-10-10 06:33] LABS: Absolute Neutrophil Count 1.5 X10^3/uL (2.0-7.7); Eosinophils% 3.9 % (0-5); Hematocrit 21.2 % (40-54); Hemoglobin 7.1 g/dL (13.0-16.5); Lymphocyte % 27.5 % (19-41); Mean Corp Hgb Conc 33.5 g/dL (32-36); Mean Corpuscular Hgb 31.3 pg (27.0-32.0); Mean Corpuscular Volume 93.4 fL (80-94); Monocyte# 0.22 X10^3/uL; Monocyte% 8.6 % (0-10); NRBC Flagged by Analyzer 0 % (0-5); Neutrophil # 1.51 X10^3/uL (2.7-7.7); Neutrophil % 59.2 % (47-70); Platelet Count 107 K/mm3 (150-450); RBC Distribution Width CV 16.3 % (11.6-14.6); RBC Distribution Width SD 55.5 fl (35.1-43.9); Red Blood Count 2.27 M/mm3 (4.6-6.2); White Blood Count 2.6 K/mm3 (4.4-11.0)
[2021-10-10 07:00] LABS: Anion Gap 5 (5-15); BUN 13 mg/dL (7-18); BUN/Creat Ratio 21.1 RATIO (10-20); Calcium,Total 7.3 mg/dL (8.5-10.1); Chloride 102 mmol/L (98-107); Creatinine, Serum 0.62 mg/dL (0.70-1.30); EST Glomerular Filtration Rate 138 mL/min (>60); Est Glom Filt Rate - Afr Amer 167 mL/min (>60); Estimated Creatinine Clearance 76.52 ml/min; Glucose 90 mg/dL (74-106); Phosphorus 2.8 mg/dL (2.5-4.9); Potassium 3.5 mmol/L (3.5-5.1); Sodium Level 135 mmol/L (136-145)
[2021-10-10] MEDS: Electrolyte Solution/Peg's 4000 ML PO (09:12)
[2021-10-10] MEDS: Folic Acid 1 MG Tablet PO (09:13)
[2021-10-10] MEDS: Pantoprazole Sodium 40 MG Tablet PO ×2 (09:13→20:57)
[2021-10-10 09:14] LABS: MG Sendout 1.5 mg/dL (1.6-2.3)
--- NOTE | 2021-10-10 10:15 | PCM.PN.HOSP ---
Documented by User: Estrada CAREY 10/10/21 10:23 Subjective Subjective Patient is a 71-year-old male comfortably resting in bed, alert and oriented x3. Denies development of any new symptoms overnight. Does not appear in acute distress. Objective Data Objective Data Vital Signs: Vital Signs Temp Pulse Resp BP Pulse Ox 97.7 F L 81 16 135/69 H 97 10/10/21 09:20 10/10/21 09:20 10/10/21 09:20 10/10/21 09:20 10/10/21 09:20 Oxygen Delivery Method Room Air Weight: 173 lb 9 oz Body Mass Index (BMI) 23.5 Intake & Output: Intake and Output for Last 24 Hours 10/08/21 10/09/21 10/10/21 23:59 23:59 23:59 Intake Total 1035 / 1035 593.75 / 593.75 Output Total 150 / 150 200 / 200 Balance 885 / 885 393.75 / 393.75 Lab / Micro Data Result Diagrams: 10/10/21 05:23 10/10/21 05:23 Labs: Laboratory Results - last 24 hr 10/09/21 10:55: WBC 2.6 L, RBC 2.24 L, Hgb 7.0 L, Hct 21.6 L, MCV 96.4 H, MCH 31.3, MCHC 32.4, RDW Std Deviation 57.1 H, RDW Coeff of [place] 16.1 H, Plt Count 114 L, MPV 10.7, Immature Gran % (Auto) 0.800, Neut % (Auto) 61.4, Lymph % (Auto) 26.1, [place] % (Auto) 7.4, Eos % (Auto) 4.3, Baso % (Auto) 0.0, Absolute Neuts (auto) 1.6 L, Absolute Lymphs (auto) 0.67 L, Nucleated RBC % 0 10/09/21 10:55: Sodium 134 L, Potassium 3.8, Chloride 99, Carbon Dioxide 31.0, Anion Gap 4 L, BUN 13, Creatinine 0.77, Estim Creat Clear Calc 76.52, Est GFR (MDRD) Af Amer 129, Est GFR (MDRD) Non-Af 107, BUN/Creatinine Ratio 16.9, Glucose 115 H, Calcium 7.9 L, Magnesium Cancelled, Total Bilirubin 0.50, Direct Bilirubin 0.19, AST 31, ALT 43, Alkaline Phosphatase 194 H, Total Protein 5.9 L, Albumin 1.7 L, Globulin 4.2 10/09/21 10:55: Blood Type O POSITIVE, Antibody Screen NEGATIVE 10/09/21 10:55: PT 19.7 H, INR 1.7 10/09/21 10:55: Magnesium 1.5 L 10/09/21 10:55: Crossmatch See Detail 10/09/21 11:30: Ethyl Alcohol 6.0 10/10/21 05:23: WBC 2.6 L, RBC 2.27 L, Hgb 7.1 L, Hct 21.2 L, MCV 93.4, MCH 31.3, MCHC 33.5, RDW Std Deviation 55.5 H, RDW Coeff of [place] 16.3 H, Plt Count 107 L, MPV 10.0, Immature Gran % (Auto) 0.800, Neut % (Auto) 59.2, Lymph % (Auto) 27.5, [place] % (Auto) 8.6, Eos % (Auto) 3.9, Baso % (Auto) 0.0, Absolute Neuts (auto) 1.5 L, Absolute Lymphs (auto) 0.70 L, Nucleated RBC % 0 10/10/21 05:23: Sodium 135 L, Potassium 3.5, Chloride 102, Carbon Dioxide 28.0, Anion Gap 5, BUN 13, Creatinine 0.62 L, Estim Creat Clear Calc 76.52, Est GFR (MDRD) Af Amer 167, Est GFR (MDRD) Non-Af 138, BUN/Creatinine Ratio 21.1 H, Glucose 90, Calcium 7.3 L, Phosphorus 2.8, Magnesium Cancelled Micro: Microbiology 10/09/21 10:55 Stool Stool Occult Blood (CHILO) - Final Occult Blood Positive Radiography Diagnostic Testing: Radiology Impression Elbow X-Ray 10/09/21 14:10 IMPRESSION: Mild effusion. Findings consistent with bursitis. Age-indeterminate injury, likely chronic, of the enthesopathy at the level of the olecranon. No visualized acute fracture. Electronically Signed: Skye Mosley MD at 14:27 EST Reading Location ID and State: [facility] / [place] Tel , Service support , Physical Exam Const alert, oriented x3 and no apparent distress HEENT head/scalp atraumatic and moist oral mucous membranes Head and Scalp: normocephalic Eyes PERRL, EOMs intact bilaterally and conjunctivae normal Neck no lymphadenopathy, supple and no JVD Resp normal respiratory effort, no retractions, no use of accessory muscles and clear to auscultation bilaterally Cardio regular rate, regular rhythm, no murmurs and no JVD GI normal to inspection, nondistended, normoactive bowel sounds, soft to palpation and non-tender Extremity Extremity Narrative: Improved redness and pain about the right elbow. Skin no rashes or lesions noted, no wounds and skin turgor normal Neuro CN's II-XII intact bilaterally Psych affect normal Assessment & Plan Assessment/Plan (1) Anemia: (2) Acute blood loss anemia: (3) GI bleed: PLAN: Day 1 Discharge planning: Patient to discharge back to when medically ready. 1) acute on chronic normocytic anemia Hemoglobin currently 7.1 after transfusion of 1 unit of blood. Patient to undergo evaluation by GI today and possible EGD/colonoscopy on 10/11, need to hold Eliquis, continue oral PPI, continue clear liquid diet and make n.p.o. at midnight, continue to hold Eliquis. 2) hypomagnesemia 1.5 on admission, IV magnesium given, updated magnesium pending, will continue to monitor. 3) pancytopenia Stable from admission. Likely related to patient's multiple myeloma. Follows with outpatient oncologist. We will continue to monitor. 3) prior history of DVT Patient is anticoagulated on Eliquis, will obtain Dopplers of the lower extremities on 10/11 to assess for status of DVTs, hold Eliquis due to #1. 4) multiple myeloma Follows with Dr. Brunson, has completed chemotherapy regimen. 5) HTN Stable, continue atenolol. 6) depression/anxiety Continue sertraline. 7) neuropathy Continue gabapentin. 8) olecranon bursitis Right elbow has improved in regards to tenderness to palpation, erythema and warmth. X-ray of the right elbow demonstrated findings consistent with bursitis. We will continue Tylenol as patient's pain is currently controlled. Cannot give NSAIDs given #1. DVT prophylaxis - SCDs, chemoprophylaxis on hold as above. Patient seen by Estrada Andrews PA-C, under the supervision of Dr Lawton. Time spent on patient care: 8 minutes. Documented by User: Dr. Erasmo Lawton, 10/10/21 11:36 Objective Data Lab / Micro Data Result Diagrams: 10/10/21 05:23 10/10/21 05:23 Charges/Coding Addendum Addendum: Patient was seen and examined independently of Estrada Andrews, he is alert today and answers simple questions appropriately. His right elbow appears to be's tender today to palpation although there is no overt swelling noted, there is evidence of a surgical scar over the right elbow, he states that in the past he had something drained and surgical gauze was placed temporarily until the wound healed. Patient's hemoglobin today is 7.1, he received 1 unit of packed red blood cells, he remains pancytopenic today with a white blood cell count of 2.6 and a platelet count of 107,000. Nursing is not made me aware of any hematochezia, vomiting, or hematemesis. On examination he appeared his stated age, he answers simple questions appropriately. Vital signs as documented. Skin warm and dry and without overt rashes. Neck without JVD, neck was supple, trachea midline, thyroid was normal. Lungs clear bilaterally, normal air movement was noted. Heart exam notable for regular rhythm, normal sounds and absence of murmurs, rubs or gallops. Abdomen unremarkable and without evidence of organomegaly, masses, or abdominal aortic enlargement. Bowel sounds are present, abdomen is not distended. Extremities nonedematous, no cyanosis was noted, no clubbing was noted. Neuro: Cranial nerves II through XII are grossly intact, no focal motor deficits were noted, sensation to light touch and pinprick intact, motor exam 5/5 throughout. Psych: Patient is alert and oriented x3, he does not appear anxious or depressed, he does not appear agitated. He answers simple questions appropriately Impression:#1 chronic anemia-etiology unclear at this point, I feel this is most likely due to the patient's multiple myeloma, I do not feel the patient needs an additional blood transfusion at this time, he appears hemodynamically stable, he will be reassessed tomorrow for the need for an additional blood transfusion. #2 Hemoccult positive stool-patient will be seen by GI, he will go undergo an EGD and a colonoscopy, he is drinking GoLYTELY prep today and appears to be tolerating it well. #3 multiple myeloma-patient sees outpatient oncology #4 paroxysmal atrial fibrillation-patient currently in sinus rhythm, patient Xarelto was held due to his anemia and Hemoccult positive stool #5 essential hypertension-current medications will be continued #6 cognitive impairment issues-Per prison, patient appears alert and oriented here #7 generalized debility-secondary to multiple medical problems, PT and OT will continue seeing the patient #8 past history of ethanol abuse-patient currently resides in an extended care facility for rehab services I have reviewed Estrada Andrews's progress note including his medical assessment and plan of care and endorse it. Total clinical time spent by myself addressing patient's problems, reviewing the patient's medical record, and collaboration with the patient's care team: 30 minutes Visit Charges Inpatient E&M: 59395 Subs Hosp L3
[2021-10-10] MEDS: Sertraline 100 MG Tablet PO (10:20)
--- NOTE | 2021-10-10 13:25 | EX.PCM.CON.G ---
HPI Consult Data Date of Consult: 10/10/21 HPI Narrative HPI Narrative: NIDIA HICKMAN, is a 71 M who presents to the ED at [facility] on 10/09/2021 with a chief complaint of abnormal labs. Patient presents from [facility] in [place] which isai labs on patient yesterday and returned with a hemoglobin of 6.7 and magnesium of 1.1. Past medical history is significant for pancytopenia, multiple myeloma, prior DVT. He has not received any blood transfusions in the past. CBC shows WBCs at 2.6, hemoglobin at 7.0 and platelets at 114 with a normal MCV. BMP shows sodium at 134, potassium 3.8, creatinine at 0.77. He said that he was getting shots in his belly for his anemia. He is on Ferrous sulfate once a day. [facility] Medical History Acute deep vein thrombosis (DVT) of left lower extremity Anemia Essential (primary) hypertension ETOH abuse Fatty liver Idiopathic gout Multiple myeloma not having achieved remission Obstructive sleep apnea Orthostatic hypotension Pancytopenia Syncope Thrombocytopenia Home Medications ferrous sulfate 325 mg PO QHS 06/18/20 [History Last Taken Unknown] allopurinol 300 mg PO DAILY 05/27/21 [History Last Taken Unknown] calcium carbonate-vitamin D3 [Calcium 500 + D] 1 tab PO BID 05/27/21 [History Last Taken Unknown] gabapentin 300 mg PO TID 05/27/21 [History Last Taken Unknown] atenolol 12.5 mg PO QHS 10/09/21 [History Last Taken Unknown] folic acid 1 mg PO DAILY 10/09/21 [History Last Taken Unknown] rivaroxaban [Xarelto] 20 mg PO QHS 10/09/21 [History Last Taken Unknown] sertraline 100 mg PO DAILY 10/09/21 [History Last Taken Unknown] thiamine HCl (vitamin B1) 100 mg PO DAILY 10/09/21 [History Last Taken Unknown] Allergy/AdvReac Type Severity Reaction Status Date / Time No Known Allergies Allergy Verified 10/09/21 10:50 Family History Mother Heart disease Hypertension Father Hypertension Surgical History no surgical history Social History household members: spouse Smoking Status: Never smoker alcohol intake: former details: sober substance use type: does not use ROS Review of Systems ROS Unobtainable: other Constitutional Constitutional: Denies fatigue, fever(s), poor appetite, weight gain or weight loss ENT HEENT: Denies mouth lesions Cardiovascular Cardiovascular: Denies abdominal bloating, abdominal edema or abdominal pain Respiratory/Chest Respiratory/Chest: Denies change in mental status, change in phlegm color, chest congestion or chest tightness Gastrointestinal Gastrointestinal: Denies belching, bloating, change in bowel habits, change in stool character, chewing difficulty, coffee ground emesis, constipation, cramping, diarrhea, dyspepsia, dysphagia, early satiety, excessive flatus, fecal incontinence, heartburn, hematemesis, hematochezia, hemorrhoids, loose stools, melena, nausea, odynophagia, rectal bleeding, tenesmus, vomiting or weight changes Genitourinary Genitourinary: Denies abdominal discomfort, burning urination or itching Musculoskeletal Musculoskeletal: Reports as per HPI; Denies muscle weakness or myalgias Integumentary Integumentary: Denies jaundice Neurologic Neurologic: Denies lack of coordination or weakness Psychiatric Psychiatric: Denies confusion, depression, memory loss, mood swings, paranoia or suicidal ideation Endocrine Endocrinology: Denies systems reviewed and no addt'l complaints, except as documented Hematologic/Lymphatic Hematologic/Lymphatic: Denies anemia, easy bleeding, easy bruising or lymphadenopathy Allergic/Immunologic Allergic/Immunologic: Denies systems reviewed and no addt'l complaints, except as documented Physical Exam Const alert General Appearance: cooperative Orientation / Consciousness: oriented to person HEENT hearing grossly normal bilaterally Head and Scalp: normal to inspection Face and Sinus: face symmetric Nose: external nose normal Mouth: oral and palatal mucosa normal Eyes conjunctivae normal General Eye: normal appearance of both eyes Neck full ROM General: normal visual inspection Lymph Lymphatic: no lymphadenopathy noted Chest inspection of chest normal and palpation of chest normal Chest: symmetrical chest wall rise Resp normal respiratory effort Effort and Inspection: able to speak in complete sentences Cardio regular rate GI non-distended Percussion: normal to percussion Rectal Exam: deferred Neuro Speech: speech normal Gait (Neuro): normal gait Lab / Micro Data Result Diagrams: 10/10/21 05:23 10/10/21 05:23 Labs: Laboratory Results - last 24 hr 10/09/21 10:55: Magnesium 1.5 L 10/09/21 10:55: Crossmatch See Detail 10/10/21 05:23: WBC 2.6 L, RBC 2.27 L, Hgb 7.1 L, Hct 21.2 L, MCV 93.4, MCH 31.3, MCHC 33.5, RDW Std Deviation 55.5 H, RDW Coeff of [place] 16.3 H, Plt Count 107 L, MPV 10.0, Immature Gran % (Auto) 0.800, Neut % (Auto) 59.2, Lymph % (Auto) 27.5, [place] % (Auto) 8.6, Eos % (Auto) 3.9, Baso % (Auto) 0.0, Absolute Neuts (auto) 1.5 L, Absolute Lymphs (auto) 0.70 L, Nucleated RBC % 0 10/10/21 05:23: Sodium 135 L, Potassium 3.5, Chloride 102, Carbon Dioxide 28.0, Anion Gap 5, BUN 13, Creatinine 0.62 L, Estim Creat Clear Calc 76.52, Est GFR (MDRD) Af Amer 167, Est GFR (MDRD) Non-Af 138, BUN/Creatinine Ratio 21.1 H, Glucose 90, Calcium 7.3 L, Phosphorus 2.8, Magnesium Cancelled Micro: Microbiology 10/09/21 10:55 Stool Stool Occult Blood (CHILO) - Final Occult Blood Positive Radiology Impression Elbow X-Ray 10/09/21 14:10 IMPRESSION: Mild effusion. Findings consistent with bursitis. Age-indeterminate injury, likely chronic, of the enthesopathy at the level of the olecranon. No visualized acute fracture. Electronically Signed: Skye Mosley MD at 14:27 EST , Assessment & Plan Assessment/Plan (1) Multiple myeloma: PLAN: His MM would explain his pancytopenia. However, he has a normal MCV that should be significantly elevated in the setting of myleofibrosis form MM. He does not know the stage of his MM and why he is not on therapy at this faith. (2) History of hepatitis C: PLAN: Hepatitis C can cause hemolysis. He does not know if he has been treated for HepC. His PCR RNA quant should be checked. (3) Anemia: PLAN: I suspect that his anemia is multifactorial due to MM, alcoholism, Malnutrition, Hep C and Xarelto. He will undergo an egd and colonoscopy tomorrow. He will also need a capsule endoscopy. Charges/Coding Visit Charges Inpatient E&M: 16371 Init Hosp L3
[2021-10-10] MEDS: Bisacodyl 5 MG Tablet 20 MG PO (14:59)
[2021-10-10] MEDS: Ferrous Sulfate 325 MG Tablet PO (17:10)
[2021-10-10] MEDS: Menthol/Lanolin/Calamine/Znox 113 GM Tube 1 APPLIC TOPICAL (18:44)
[2021-10-10] MEDS: Atenolol 25 MG Tablet 12.5 MG PO (20:57)
[2021-10-11] VITALS (16 sets, daily range): BP systolic 97–156; BP diastolic 46–92; PULSE 74–96; RESP 15–18; TEMP 36.3–37.1; O2SAT 95–99; BMI 23.5
--- NOTE | 2021-10-11 05:55 | EKG12_ITS ---
Test Reason : AM EKG Blood Pressure : / mmHG Vent. Rate : 080 BPM Atrial Rate : 080 BPM P-R Int : 160 ms QRS Dur : 084 ms QT Int : 480 ms P-R-T Axes : 032 -18 038 degrees QTc Int : 553 ms Sinus rhythm with frequent Premature ventricular complexes in a pattern of bigeminy Prolonged QT Abnormal ECG Confirmed by TATI QUIROS, LUCILA ([id number]), state editor PRABHJOT NARAYAN ([id number]) on 10/12/2021 10:50:34 AM Referred By: DR VILLA Confirmed By:LUCILA DUFFY MD
[2021-10-11 06:32] LABS: Absolute Lymphocyte Count 0.74 X10^3/uL (0.83-4.51); Absolute Neutrophil Count 1.7 X10^3/uL (2.0-7.7); Eosinophil# 0.09 X10^3/uL; Eosinophils% 3.3 % (0-5); Hematocrit 23.4 % (40-54); Hemoglobin 7.4 g/dL (13.0-16.5); Lymphocyte # 0.74 X10^3/ul (0.83-4.51); Lymphocyte % 27.3 % (19-41); Mean Corp Hgb Conc 31.6 g/dL (32-36); Mean Corpuscular Volume 94.7 fL (80-94); Mean Platelet Vol. 9.6 fl (6.2-12.0); Monocyte% 7.4 % (0-10); NRBC Flagged by Analyzer 0 % (0-5); Neutrophil # 1.66 X10^3/uL (2.7-7.7); Neutrophil % 61.3 % (47-70); Platelet Count 101 K/mm3 (150-450); RBC Distribution Width CV 16.3 % (11.6-14.6); RBC Distribution Width SD 56.6 fl (35.1-43.9); Red Blood Count 2.47 M/mm3 (4.6-6.2); White Blood Count 2.7 K/mm3 (4.4-11.0)
[2021-10-11 06:38] LABS: International Normalized Ratio 1.3; Prothrombin Time (Protime)PT. 15.2 SECONDS (11.7-14.9)
[2021-10-11] MEDS: 0.9% Normal Saline 1,000 ML 75 ML IV (06:48)
[2021-10-11 06:57] LABS: Anion Gap 5 (5-15); BUN 13 mg/dL (7-18); BUN/Creat Ratio 21.3 RATIO (10-20); Calcium,Total 7.1 mg/dL (8.5-10.1); Chloride 103 mmol/L (98-107); Creatinine, Serum 0.61 mg/dL (0.70-1.30); EST Glomerular Filtration Rate 139 mL/min (>60); Est Glom Filt Rate - Afr Amer 169 mL/min (>60); Estimated Creatinine Clearance 76.52 ml/min; Glucose 79 mg/dL (74-106); Potassium 3.3 mmol/L (3.5-5.1); Sodium Level 136 mmol/L (136-145)
[2021-10-11] MEDS: Potassium Chloride Oral Tablet 20 MEQ 40 MEQ PO (08:28)
[2021-10-11] MEDS: Sertraline 100 MG Tablet PO (08:29)
[2021-10-11] MEDS: Pantoprazole Sodium 40 MG Tablet PO ×2 (08:33→21:12)
[2021-10-11] MEDS: Folic Acid 1 MG Tablet PO (08:33)
[2021-10-11] MEDS: Gabapentin 300 MG Capsule PO ×3 (08:33→21:12)
--- NOTE | 2021-10-11 09:45 | CASEMGMT ---
Social Work SW reviewed chart, pt is here from [facility]. JOSE ELIAS called [facility], message left inquiring how long pt has been there, and if he is needing a precert--it is unclear if pt is there under [employer] or Medicare. JOSE ELIAS faxed updates to [facility], will continue to follow. NIRU Whitlock
--- NOTE | 2021-10-11 10:09 | CASEMGMT ---
JOSE ELIAS called patient's , Sandra. JOSE ELIAS introduced self and role at [facility]. JOSE ELIAS asked if the plan is for patient to return to [facility] at discharge. Sandra would like patient to go to [facility] 4th floor rehab unit as he was there before. JOSE ELIAS explained qualifying diagnoses for the rehab unit. Sandra would like [facility] TCU if Rehab cannot take him. Sandra could not remember the date patient tested positive for COVID. However, he was admitted to [facility] 09-19 for COVID and discharged to [facility] 09-23. Patient is likely 22 days out from his positive test. JOSE ELIAS told Sandra SW will make a referral and let her know what JOSE ELIAS finds out. JOSE ELIAS left message for Mirian in TCU/Rehab. [place] Rai [employer] TE[employer]ER DANIEL
--- NOTE | 2021-10-11 11:09 | NURSING ---
report called to Arti in [facility]
[2021-10-11] MEDS: 0.9% Normal Saline 1,000 ML 15 ML IV (11:22)
--- NOTE | 2021-10-11 11:40 | CASEMGMT ---
Social Work Pt has LW/POA scanned into summary tab of echart, pt's is pt's healthcare POA. NIRU Whitlock
--- NOTE | 2021-10-11 11:48 | CASEMGMT ---
JOSE ELIAS spoke with Mirian and [facility] 4th floor rehab can take patient. JOSE ELIAS called patient's and let her know this information. JOSE ELIAS also called [facility] and left a message letting Kamryn know patient will not be returning. Plan: [facility] 4th floor Acute Rehab when medically ready. [place] SANCHEZ
--- NOTE | 2021-10-11 11:53 | PN.HOSP_ITS ---
Documented by User: Estrada CAREY 10/11/21 12:03 Subjective Subjective Patient is a 71-year-old male comfortably resting in bed, alert and orient x3. Denies development of any new symptoms overnight. Does not appear in acute distress. Objective Data Objective Data Vital Signs: Vital Signs Temp Pulse Resp BP Pulse Ox 97.8 F 83 18 117/76 95 10/11/21 06:46 10/11/21 06:55 10/11/21 06:46 10/11/21 06:46 10/11/21 07:22 Oxygen Delivery Method Room Air Weight: 173 lb 8.061 oz Body Mass Index (BMI) 23.5 Intake & Output: Intake and Output for Last 24 Hours 10/09/21 10/10/21 10/11/21 23:59 23:59 23:59 Intake Total 1035 / 1035 3140.00 / 3140.00 1942.5 / 1942.5 Output Total 150 / 150 800 / 800 Balance 885 / 885 2340.00 / 2340.00 194.5 / 1942.5 Lab / Micro Data Result Diagrams: 10/11/21 05:37 10/11/21 05:37 Labs: Laboratory Results - last 24 hr 10/11/21 05:37: WBC 2.7 L, RBC 2.47 L, Hgb 7.4 L, Hct 23.4 L, MCV 94.7 H, MCH 30.0, MCHC 31.6 L D, RDW Std Deviation 56.6 H, RDW Coeff of [place] 16.3 H, Plt Count 101 L, MPV 9.6, Immature Gran % (Auto) 0.700, Neut % (Auto) 61.3, Lymph % (Auto) 27.3, [place] % (Auto) 7.4, Eos % (Auto) 3.3, Baso % (Auto) 0.0, Absolute Neuts (auto) 1.7 L, Absolute Lymphs (auto) 0.74 L, Nucleated RBC % 0 10/11/21 05:37: Sodium 136, Potassium 3.3 L, Chloride 103, Carbon Dioxide 28.0, Anion Gap 5, BUN 13, Creatinine 0.61 L, Estim Creat Clear Calc 76.52, Est GFR (MDRD) Af Amer 169, Est GFR (MDRD) Non-Af 139, BUN/Creatinine Ratio 21.3 H, Glucose 79, Calcium 7.1 L 10/11/21 05:37: PT 15.2 H, INR 1.3, APTT 49.0 H Micro: Microbiology 10/11/21 08:20 Nasal Secretion SARS-CoV-2 Antigen (Rapid) - Final 10/09/21 10:55 Stool Stool Occult Blood (CHILO) - Final Occult Blood Positive Physical Exam Const alert, oriented x3 and no apparent distress HEENT head/scalp atraumatic and moist oral mucous membranes Head and Scalp: normocephalic Eyes PERRL, EOMs intact bilaterally and conjunctivae normal Neck no lymphadenopathy, supple and no JVD Resp normal respiratory effort, no retractions and no use of accessory muscles Cardio regular rate, regular rhythm and no JVD GI normal to inspection, nondistended, normoactive bowel sounds Extremity normal to inspection Skin no rashes or lesions noted and no wounds Neuro CN's II-XII intact bilaterally Psych affect normal Assessment & Plan Assessment/Plan (1) Fall: (2) Debility: (3) Anemia: (4) GI bleed: PLAN: Day 1 Discharge planning: TBD, CM/SW following. 1) acute on chronic normocytic anemia Hemoglobin currently 7.4 after transfusion of 1 unit of blood 10/09. Patient to undergo evaluation by EGD and colonoscopy today. Continue PPI, continue to hold Eliquis, awaiting input from GI. 2) hypomagnesemia 1.5 on admission, IV magnesium given, updated magnesium pending, will continue to monitor. 3) pancytopenia Stable from admission. Likely related to patient's multiple myeloma. Follows with outpatient oncologist. We will continue to monitor. 3) prior history of DVT Patient is anticoagulated on Eliquis, will obtain Dopplers of the lower extremities on 10/11 to assess for status of DVTs, hold Eliquis due to #1. 4) multiple myeloma Follows with Dr. Brunson, has completed chemotherapy regimen. 5) HTN Stable, continue atenolol. 6) depression/anxiety Continue sertraline. 7) neuropathy Continue gabapentin. 8) olecranon bursitis Right elbow has improved in regards to tenderness to palpation, erythema and warmth. X-ray of the right elbow demonstrated findings consistent with b ursitis. We will continue Tylenol as patient's pain is currently controlled. Cannot give NSAIDs given #1. 9) hypocalcemia Calcium currently 7.1, replaced, continue to monitor. 10) hypokalemia Potassium currently 3.3, will replace, continue to monitor. DVT prophylaxis - SCDs, chemoprophylaxis on hold as above. Patient seen by Estrada Andrews PA-C, under the supervision of Dr. Martínez. Time spent on patient care: 7 minutes. Documented by User: Dr. Akanksha Martínez MD 10/11/21 14:43 Objective Data Lab / Micro Data Result Diagrams: 10/11/21 05:37 10/11/21 05:37 Charges/Coding Addendum Addendum: Patient seen by Estrada Andrews PA-C under my supervision Patient seen and examined. He complained of feeling tired, but had no active complaints. He denied any lightheadedness, dizziness, any overt blood in stool or emesis or urine. Review of systems is otherwise negative. He is due for egd and colonoscopy today. Gi on board. He has remained hemodynamically stable. O/E: Const alert, oriented x3 and no apparent distress HEENT head/scalp atraumatic and moist oral mucous membranes Head and Scalp: normocephalic Eyes PERRL, EOMs intact bilaterally and conjunctivae normal Neck no lymphadenopathy, supple and no JVD Resp normal respiratory effort, no retractions and no use of accessory muscles Cardio regular rate, regular rhythm and no JVD GI normal to inspection, nondistended, normoactive bowel sounds Extremity normal to inspection Skin no rashes or lesions noted and no wounds Neuro CN's II-XII intact bilaterally Psych affect normal Assessment and plan #Acute on chronic anemia * s/p transfusion of one unit of PRBC. * hb is 7.4 today * GI on board. For EGD and colonoscopy tday * on IV PPI * #Hypomagnesemia: replaced. Will trend #pancytopenia * likely due to his multiple myeloma. To follow up with oncologist on outpatient basis. Will monitor * #History of DVT: Eliquis on hold due to acute on chronic anemia. #Hypertension: On atenolol #Depression and anxiety: On sertraline #Olecranon bursitis: Improving. On Tylenol as needed. DVT prophylaxis: SCDs. Total time spent by me on patient today: 25 minutes and 7 minutes spent by PA making a total of 32 minutes. Visit Charges Inpatient E&M: 26490 Subs Hosp L2
--- NOTE | 2021-10-11 12:00 | COLBX_PTH ---
PATIENT: NIDIA HICKMAN LOC: [facility] U#:[id number] AGE/SX: 71/M ROOM: [facility] RE10/09/[address]: Dr. Akanksha Martínez MD : 1950 BED: 1 DIS: 10/12/2021 SPEC #: [id number] RECD: 10/12/21 10:43 STATUS: JOSHUA RESandra #: [id number] JOI: 10/11/21 12:[address]: Anjum Daniel DEPT: SURGICAL PATHOLOGY RECD BY: Vicenta Ayoub ENTERED: 10/12/21 11:59 SP TYPE: COLON BX OTHR DR: MD Dr. Erasmo Rivas, DO Dr. Akanksha Martínez MD Tissues: A - COLON BIOPSY B - Cecum, NOS C - Transverse colon Procedures: Surgery Specimen Level IV Comments: @ Ordering doctor for SUIV edited from to @ by SHAYY at 10/12/21 1401 @ Submitting doctor edited from to @ by RGOOD at 10/12/21 1401 HEADER OPERATION: Colonoscopy, EGD, Gold probe cautery, gastric and colon biopsy PRE-OP DIAGNOSIS: Anemia TISSUE SUBMITTED: A ? Lesser curvature biopsy, B ? Cecum polyp biopsy, C ? Transverse colon polyp biopsy MICROSCOPIC DIAGNOSIS A. Lesser curvature, biopsy: Mild gastritis. See microscopic description and comment. B. Cecum polyp, biopsy: Tubular adenoma. C. Transverse colon polyp, biopsy: Tubular adenoma. SJ:art 10/13/2021 COMMENT A. Immunohistochemistry for Helicobacter pylori can be performed if clinically indicated. Please notify the Laboratory if it is needed. MICROSCOPIC DESCRIPTION Slides are reviewed. A. The specimen shows fragments of gastric mucosa with chronic inflammatory cell infiltrates in the lamina propria consisting of lymphocytes and plasma cells, consistent with mild chronic gastritis. Focal mucosal congestion and hemorrhage is noted. GROSS DESCRIPTION A - Received in fixative is one container labeled with the patient's name and designated lesser curvature biopsy. The specimen consists of two irregular fragments of light bernstein soft tissue that in aggregate measure 0.5 x 0.5 x 0.1 cm. The specimen is totally submitted in one cassette. B - Received in fixative is one container labeled with the patient's name and designated cecum polyp biopsy. The specimen consists of one irregular fragment of light bernstein soft tissue that measures 0.3 x 0.3 x 0.1 cm. The specimen is totally submitted in one cassette. C - Received in fixative is one container labeled with the patient's name and designated transverse colon polyp biopsy. The specimen consists of one irregular fragment of light bernstein soft tissue that measures 0.3 x 0.3 x 0.1 cm. The specimen is totally submitted in one cassette. / SJ:rg 10/12/2021 TC:1 CPT: 01059 x3
[2021-10-11] MEDS: Ferrous Sulfate 325 MG Tablet PO (15:39)
--- NOTE | 2021-10-11 15:40 | OP.CCLET_ITS ---
05/23/2022 Onur Garcia Re : Upper GI endoscopy procedure for Isaiah Rodriguez Soren Garcia This procedure was performed on Monday, October 11, 2021. My impressions and recommendations are as follows: Impressions : - LA Grade A reflux esophagitis. Biopsied. 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 Treated with argon plasma coagulation (APC). - Normal second portion of the duodenum. Recommendations : - Return patient to [facility] for ongoing care. - Advance diet as tolerated. - Continue present medications. My findings are described in the full procedure note, which is enclosed. If I can be of further assistance, please feel free to contact me at . Sincerely, Anjum Daniel, 10/11/2021 3:40:14 PM This report has been signed electronically.
--- NOTE | 2021-10-11 15:40 | OP.EGD_ITS ---
Patient Name: Isaiah Rodriguez Procedure Date: 10/11/2021 12:18 PM Date of : 1950 Age: 71 Procedure: Upper GI endoscopy Indications: Iron deficiency anemia Providers: Anjum Daniel DO Medicines: See the Anesthesia note for documentation of the administered medications Patient Profile: This is a 71 year old male. Refer to note in patient chart for documentation of history and physical. Patient has symptoms. Complications: No immediate complications. Procedure: Pre-Anesthesia Assessment: - Prior to the procedure, a History and Physical was performed, and patient medications and allergies were reviewed. The patient is competent. The risks and benefits of the procedure and the sedation options and risks were discussed with the patient. All questions were answered and informed consent was obtained. Patient identification and proposed procedure were verified by the physician in the pre-procedure area. Mental Status Examination: alert and oriented. Airway Examination: normal oropharyngeal airway and neck mobility. Respiratory Examination: clear to auscultation. CV Examination: normal. Prophylactic Antibiotics: The patient does not require prophylactic antibiotics. Prior Anticoagulants: The patient has taken no previous anticoagulant or antiplatelet agents. ASA Grade Assessment: III - A patient with severe systemic disease. After reviewing the risks and benefits, the patient was deemed in satisfactory condition to undergo the procedure. The anesthesia plan was to use moderate sedation / analgesia (conscious sedation). Immediately prior to administration of medications, the patient was re-assessed for adequacy to receive sedatives. The heart rate, respiratory rate, oxygen saturations, blood pressure, adequacy of pulmonary ventilation, and response to care were monitored throughout the procedure. The physical status of the patient was re-assessed after the procedure. After obtaining informed consent, the endoscope was passed under direct vision. Throughout the procedure, the patient's blood pressure, pulse, and oxygen saturations were monitored continuously. The colonoscope was introduced through the mouth, and advanced to the second part of duodenum. The upper GI endoscopy was accomplished without difficulty. The patient tolerated the procedure well. Moderate Sedation: Moderate (conscious) sedation was administered by the endoscopy nurse and supervised by the endoscopist. The following parameters were monitored: oxygen saturation, heart rate, blood pressure, and response to care. Total physician intraservice time was 2 minutes. Scope In: 12:30:32 PM Scope Out: 12:39:01 PM Total Procedure Duration Time 0 hours 8 minutes 29 seconds Findings: LA Grade A (one or more mucosal breaks less than 5 mm, not extending between tops of 2 mucosal folds) esophagitis with no bleeding was found 34 to 35 cm from the incisors. A single 5 mm bleeding angiodysplastic lesion was found in the gastric body. Coagulation for bleeding prevention using argon plasma at 0.3 liters/minute and 20 salguero was successful. Estimated blood loss was minimal. The in the duodenum was normal. A 5 mm non-bleeding diverticulum was found in the duodenal bulb. Localized moderate inflammation characterized by congestion (edema), erosions and erythema was found on the lesser curvature of the stomach. Biopsies were taken with a cold forceps for histology. Verification of patient identification for the specimen was done. Estimated blood loss was minimal. Impression: - LA Grade A reflux esophagitis. Biopsied. 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 Treated with argon plasma coagulation (APC). - Normal second portion of the duodenum. Recommendation: - Return patient to [facility] for ongoing care. - Advance diet as tolerated. - Continue present medications. Procedure Code(s): --- Professional --- 13033, 59, Esophagogastroduodenoscopy, flexible, transoral; with control of bleeding, any method 66307, Esophagogastroduodenoscopy, flexible, transoral; with biopsy, single or multiple CPT copyright 2017 [employer]. All rights reserved. The codes documented in this report are preliminary and upon progressive care nurse review may be revised to meet current compliance requirements. Anjum Daniel DO 10/11/2021 3:40:14 PM This report has been signed electronically. Number of Addenda: 1 Note Initiated On: 10/11/2021 12:18 PM Addendum Number: 1 Addendum Date: 05/23/2022 6:53:50 AM MAC was used for sedation during this procedure. Anjum Daniel DO 05/23/2022 6:53:54 AM This report has been signed electronically.
--- NOTE | 2021-10-11 16:10 | OP.CCLET_ITS ---
05/23/2022 Onur Garcia Re : Colonoscopy procedure for Isaiah Rodriguez Soren Garcia This procedure was performed on Monday, October 11, 2021. My impressions and recommendations are as follows: Impressions : - Preparation of the colon was fair. - Two 1 to 2 mm polyps in the transverse colon and in the cecum, removed with a hot snare. Resected and retrieved. - A single recently bleeding colonic angiodysplastic lesion. Treated with argon plasma coagulation (APC). Recommendations : - Discharge patient to home. - Advance diet as tolerated today. - Continue present medications. - Await pathology results. - Repeat colonoscopy in 3 years for surveillance of multiple polyps. - Return to GI office. My findings are described in the full procedure note, which is enclosed. If I can be of further assistance, please feel free to contact me at . Sincerely, Anjum Daniel, 10/11/2021 4:10:10 PM This report has been signed electronically.
--- NOTE | 2021-10-11 16:10 | OP.COLON_ITS ---
Patient Name: Isaiah Rodriguez Procedure Date: 10/11/2021 12:39 PM Date of : 1950 Age: 71 Procedure: Colonoscopy Indications: Iron deficiency anemia Providers: Anjum Daniel DO Patient Profile: This is a 71 year old male. Refer to note in patient chart for documentation of history and physical. Patient has symptoms. Last Colonoscopy: within the past 3 years. Complications: No immediate complications. Procedure: Pre-Anesthesia Assessment: - Prior to the procedure, a History and Physical was performed, and patient medications and allergies were reviewed. The patient is competent. The risks and benefits of the procedure and the sedation options and risks were discussed with the patient. All questions were answered and informed consent was obtained. Patient identification and proposed procedure were verified by the physician in the pre-procedure area. Mental Status Examination: alert and oriented. Airway Examination: normal oropharyngeal airway and neck mobility. Respiratory Examination: clear to auscultation. CV Examination: normal. Prophylactic Antibiotics: The patient does not require prophylactic antibiotics. Prior Anticoagulants: The patient has taken no previous anticoagulant or antiplatelet agents. ASA Grade Assessment: III - A patient with severe systemic disease. After reviewing the risks and benefits, the patient was deemed in satisfactory condition to undergo the procedure. The anesthesia plan was to use moderate sedation / analgesia (conscious sedation). Immediately prior to administration of medications, the patient was re-assessed for adequacy to receive sedatives. The heart rate, respiratory rate, oxygen saturations, blood pressure, adequacy of pulmonary ventilation, and response to care were monitored throughout the procedure. The physical status of the patient was re-assessed after the procedure. After I obtained informed consent, the scope was passed under direct vision. Throughout the procedure, the patient's blood pressure, pulse, and oxygen saturations were monitored continuously. The colonoscope was introduced through the anus and advanced to the cecum, identified by the appendiceal orifice, ileocecal valve and palpation. The colonoscopy was performed without difficulty. The patient tolerated the procedure well. The quality of the bowel preparation was fair. Moderate Sedation: Moderate (conscious) sedation was administered by the endoscopy nurse and supervised by the endoscopist. The patient's oxygen saturation, heart rate, blood pressure and response to care were monitored. Total physician intraservice time was 15 minutes. Scope In: 12:41:55 PM Scope Out: 12:57:20 PM Total Procedure Duration Time 0 hours 15 minutes 25 seconds Findings: The perianal and digital rectal examinations were normal. Two sessile polyps were found in the transverse colon and cecum. The polyps were 1 to 2 mm in size. These polyps were removed with a hot snare. Resection and retrieval were complete. Verification of patient identification for the specimen was done. Estimated blood loss was minimal. A single medium-sized localized angiodysplastic lesion with stigmata of recent bleeding was found in the ascending colon. Coagulation for bleeding prevention using argon plasma at 0.4 liters/minute and 20 salguero was successful. Estimated blood loss was minimal. Impression: - Preparation of the colon was fair. - Two 1 to 2 mm polyps in the transverse colon and in the cecum, removed with a hot snare. Resected and retrieved. - A single recently bleeding colonic angiodysplastic lesion. Treated with argon plasma coagulation (APC). Recommendation: - Discharge patient to home. - Advance diet as tolerated today. - Continue present medications. - Await pathology results. - Repeat colonoscopy in 3 years for surveillance of multiple polyps. - Return to GI office. Procedure Code(s): --- Professional --- 04151, 59, Colonoscopy, flexible; with control of bleeding, any method 57629, Colonoscopy, flexible; with removal of tumor(s), polyp(s), or other lesion(s) by snare technique 38873, 59, Moderate sedation services provided by the same physician or other qualified health child care teacher performing the diagnostic or therapeutic service that the sedation supports, requiring the presence of an independent trained observer to assist in the monitoring of the patient's level of consciousness and physiological status; initial 15 minutes of intraservice time, patient age 5 years or older CPT copyright 2017 [employer]. All rights reserved. The codes documented in this report are preliminary and upon ruling machine feeder review may be revised to meet current compliance requirements. Anjum Daniel DO 10/11/2021 4:10:10 PM This report has been signed electronically. Number of Addenda: 1 Note Initiated On: 10/11/2021 12:39 PM Addendum Number: 1 Addendum Date: 05/23/2022 6:54:01 AM MAC was used for sedation during this procedure. Anjum Daniel DO 05/23/2022 6:54:05 AM This report has been signed electronically.
[2021-10-11] MEDS: Atenolol 25 MG Tablet 12.5 MG PO (21:12)
[2021-10-12] MEDS: 0.9% Normal Saline 1,000 ML 75 ML IV (00:51)
[2021-10-12 03:00] VITALS: BP 144/78; PULSE 87; RESP 18; TEMP 37.3; O2SAT 100
[2021-10-12 03:29] VITALS: PULSE 98
[2021-10-12 05:56] LABS: Anion Gap 5 (5-15); BUN 9 mg/dL (7-18); BUN/Creat Ratio 14.7 RATIO (10-20); Calcium,Total 7.3 mg/dL (8.5-10.1); Chloride 110 mmol/L (98-107); Creatinine, Serum 0.61 mg/dL (0.70-1.30); EST Glomerular Filtration Rate 139 mL/min (>60); Est Glom Filt Rate - Afr Amer 168 mL/min (>60); Estimated Creatinine Clearance 76.52 ml/min; Glucose 87 mg/dL (74-106); Sodium Level 138 mmol/L (136-145)
[2021-10-12] MEDS: Gabapentin 300 MG Capsule PO ×2 (06:02→12:59)
[2021-10-12 07:00] VITALS: PULSE 89
[2021-10-12 07:43] LABS: Absolute Lymphocyte Count 0.87 X10^3/uL (0.83-4.51); Absolute Neutrophil Count 1.4 X10^3/uL (2.0-7.7); Basophil# 0.01 X10^3/uL; Basophil% 0.4 % (0-1); Eosinophil# 0.07 X10^3/uL; Eosinophils% 2.7 % (0-5); Hemoglobin 7.2 g/dL (13.0-16.5); Lymphocyte # 0.87 X10^3/ul (0.83-4.51); Lymphocyte % 34.1 % (19-41); Mean Corp Hgb Conc 32.7 g/dL (32-36); Mean Corpuscular Hgb 31.2 pg (27.0-32.0); Mean Corpuscular Volume 95.2 fL (80-94); Mean Platelet Vol. 10.8 fl (6.2-12.0); Monocyte# 0.22 X10^3/uL; Monocyte% 8.6 % (0-10); NRBC Flagged by Analyzer 0 % (0-5); Neutrophil # 1.37 X10^3/uL (2.7-7.7); Neutrophil % 53.8 % (47-70); POSITIVE MORPHOLOGY YES; Platelet Count 114 K/mm3 (150-450); RBC Distribution Width CV 16.2 % (11.6-14.6); RBC Distribution Width SD 55.9 fl (35.1-43.9); Red Blood Count 2.31 M/mm3 (4.6-6.2); White Blood Count 2.6 K/mm3 (4.4-11.0)
[2021-10-12 07:46] LABS: Differential Indicated SCAN CRITERIA MET
[2021-10-12 08:13] LABS: Reactive Lymphocyte RARE
[2021-10-12 09:04] VITALS: BP 126/81; PULSE 88; RESP 18; TEMP 36.9; O2SAT 94
[2021-10-12] MEDS: Sertraline 100 MG Tablet PO (09:08)
[2021-10-12] MEDS: Pantoprazole Sodium 40 MG Tablet PO (09:08)
[2021-10-12] MEDS: Folic Acid 1 MG Tablet PO (09:09)
[2021-10-12 11:12] VITALS: O2SAT 96
[2021-10-12 12:24] LABS: MG Sendout 1.9 mg/dL (1.6-2.3)
--- NOTE | 2021-10-12 12:33 | PCM.DC ---
Discharge Instructions Diet Discharge Diet: No restrictions Activity Discharge Activity: Return to Normal Activity Weight Bearing Status: Weight bearing as tolerated Dressing / Incision Call your doctor if you observe: Fever of 101 or Higher, Numbness or Tingling, Shortness of breath, Dizziness, Chest pain, Increased palpitations (irregular heartbeat) and Calf discomfort Follow Up Care Please Follow Up With: Primary care provider When: Within the next two weeks. Test Results: Test results from this visit will be discussed in further detail at your follow-up appointment, if applicable. Discharge Plan Admission Admit Date/Time: 10/09/21 14:01 Primary Reason for Your Visit: Acute blood loss anemia. Attending Provider: Akanksha Martínez Primary Care Provider: Onur Garcia Instructions Additional Instructions / Restrictions: * your Eliquis has been discontinued on recommendation of your oncologist, follow up with him at his recommendation. Discharge Orders/Prescriptions Prescriptions: New pantoprazole 40 mg Tablet,Delayed Release (Dr/Ec) 40 mg PO BID Qty: 60 RF: 0 Continued ferrous sulfate 325 MG tablet 325 mg PO QHS RF: 0 allopurinol 300 mg tablet 300 mg PO DAILY RF: 0 calcium carbonate-vitamin D3 [Calcium 500 + D] 500 mg(1,250mg) -400 unit Tablet 1 tab PO BID RF: 0 gabapentin 100 MG capsule 300 mg PO TID RF: 0 sertraline 100 mg Tablet 100 mg PO DAILY RF: 0 folic acid 1 mg Tablet 1 mg PO DAILY RF: 0 thiamine HCl (vitamin B1) 50 mg Tablet 100 mg PO DAILY RF: 0 atenolol 25 MG tablet 12.5 mg PO QHS RF: 0 Discontinued Xarelto 20 mg tablet 20 mg PO QHS RF: 0 Referrals / Follow Up: Onur Garcia MD [Primary Care Provider] - Within 2 Weeks Kodi Brunson MD [STAFF PHYSICIAN] - See Referral Note (Follow up at Dr. Brunson's recommendation. ) Disposition Disposition (needs filled in before D/C Order can be placed): Inpatient Rehab Unit/Facility
[2021-10-12] MEDS: Menthol/Lanolin/Calamine/Znox 113 GM Tube 1 APPLIC TOPICAL (12:58)
--- NOTE | 2021-10-12 13:30 | CHAPLAIN ---
Type of Pastoral Visit _x__ Initial Visit ___ Follow-up Visit ___ On-call Visit ___ General Patient Visit ___ Spiritual Assessment ___ Family Conference ___ Bereavement ___ Rapid Response ___ Code Blue ___ Other (describe below) Pastoral Care Referral From _x__ Patient ___ Family ___ Nurse ___ Physician ___ Credit Intern ___ Snowmaker ___ Other (describe below) Sacrament/Intervention _x__ Active listening ___ Anointing ___ Christian ___ Bereavement ___ Communion ___ Marline exploration ___ _x_ Life review _x__ Prayer ___ Reconciliation ___ Sacrament of Sick _x__ Supportive presence ___ Wedding ___ Other (describe below) Pastoral Comments patient is facing some uncertainties and new developments in his health; patient gives some life review including service to the country and family life; pt relies on family support; pt admits that he may need to talk more about his life and his history; pt welcomes prayer and presence
--- NOTE | 2021-10-12 13:45 | DS.PCM_ITS ---
Documented by User: Estrada CAREY 10/12/21 14:04 Providers Date of Admission: 10/09/21 Primary Care Physician: Dr. Onur Garcia MD Consultations 10/09/21 14:01 Consult: Gastroenterology Routine Consulting Provider: [facility] Reason for Consult: Anemia EMERGENT Consult: No MD Notified: Yes Date Notified: 10/09/21 Time Notified: 14:06 Method of Notification: Verbal Reason For Visit: ACUTE ON CHRONIC ANEMIA Diagnosis Discharge Diagnosis (1) Fall: Status: Acute Code(s): W19.XXXA - Unspecified fall, initial encounter (2) Debility: Status: Acute Code(s): R53.81 - Other malaise (3) Anemia: Status: Acute Code(s): D64.9 - Anemia, unspecified (4) GI bleed: Status: Acute Code(s): K92.2 - Gastrointestinal hemorrhage, unspecified Medications at Discharge Home Medications ferrous sulfate 325 mg PO QHS 06/18/20 allopurinol 300 mg PO DAILY 05/27/21 calcium carbonate-vitamin D3 [Calcium 500 + D] 1 tab PO BID 05/27/21 gabapentin 300 mg PO TID 05/27/21 atenolol 12.5 mg PO QHS 10/09/21 folic acid 1 mg PO DAILY 10/09/21 sertraline 100 mg PO DAILY 10/09/21 thiamine HCl (vitamin B1) 100 mg PO DAILY 10/09/21 pantoprazole 40 mg PO BID #60 tab 10/12/21 Hospital Course Summary of Care Provided Minutes Spent on Discharge: 20 Hospital Course: Patient is a 71-year-old male who was admitted to [facility] on 10/09/2021 for evaluation and management of acute on chronic anemia. Course and management as below. 1) acute on chronic normocytic anemia Hemoglobin currently 7.4 after transfusion of 1 unit of blood 10/09. EGD perfo rmed on 10/11 demonstrated reflux esophagitis and a single angiodysplastic lesion in the stomach which was treated with argon plasma. Colonoscopy performed on 10/11 demonstrated multiple polyps in the transverse colon as well as 1 single bleeding colonic lesion which was treated with argon plasma. Recommendations per GI are to continue current medications, advance diet as tolerated, repeat colonoscopy and EGD in 3 years and follow-up in GI office within the next 2 weeks. 2) hypomagnesemia Replaced. 3) pancytopenia Stable from admission. Likely related to patient's multiple myeloma. [facility]. We will continue to monitor. 3) prior history of DVT Updated venous Dopplers obtained on 10/11/21 did not demonstrate any evidence of acute DVT in the lower extremities bilaterally. Patient has been appropriately anticoagulated on Xarelto for the past 6 months since popliteal DVT was discovered. Patient's oncologist, Dr. Brunson, was consulted and believes that Xarelto should be stopped as patient has been appropriately anticoagulated for the past 6 months and updated venous Dopplers did not demonstrate any new DVT. We will discontinue Xarelto and patient is to follow-up with oncologist at his recommendation. 4) multiple myeloma Follows with Dr. Brunson. 5) HTN Stable, continue atenolol. 6) depression/anxiety Continue sertraline. 7) neuropathy Continue gabapentin. 8) olecranon bursitis Right elbow has improved in regards to tenderness to palpation, erythema and warmth. X-ray of the right elbow demonstrated findings consistent with bursitis. Pain controlled with Tylenol during admission.. 9) hypocalcemia Replaced. Patient seen by Estrada Andrews PA-C, under the supervision of Dr. Martínez. Time spent on patient care: 20 minutes. Physical Exam Narrative Patient is a 71-year-old male comfortably resting in bed, alert and orient x3. Denies development of any new symptoms overnight. Does not appear in acute distress. Const alert, oriented x3 and no apparent distress HEENT normocephalic, head/scalp atraumatic and hearing grossly normal bilaterally Eyes PERRL and EOMs intact bilaterally Neck no lymphadenopathy, supple and no JVD Resp normal respiratory effort, no retractions and no use of accessory muscles Cardio regular rate, regular rhythm and no JVD GI normal to inspection, nondistended, normoactive bowel sounds Extremity normal to inspection Skin no rashes or lesions noted and no wounds Neuro CN's II-XII intact bilaterally Psych affect normal Weight / BMI Weight Weight: 173 lb 8.061 oz Body Mass Index (BMI) 23.5 ABG / Lab / Microbiology Data Result Diagrams: 10/12/21 04:28 10/12/21 04:28 Laboratory: Laboratory Results - last 24 hr 10/10/21 05:23: Magnesium 1.9 10/12/21 04:28: Sodium 138, Potassium 4.0, Chloride 110 H, Carbon Dioxide 23.0, Anion Gap 5, BUN 9, Creatinine 0.61 L, Estim Creat Clear Calc 76.52, Est GFR (MDRD) Af Amer 168, Est GFR (MDRD) Non-Af 139, BUN/Creatinine Ratio 14.7, Glucose 87, Calcium 7.3 L 10/12/21 04:28: WBC 2.6 L, RBC 2.31 L, Hgb 7.2 L, Hct 22.0 L, MCV 95.2 H, MCH 31.2, MCHC 32.7, RDW Std Deviation 55.9 H, RDW Coeff of [place] 16.2 H, Plt Count 114 L, MPV 10.8, Immature Gran % (Auto) 0.400, Neut % (Auto) 53.8, Lymph % (Auto) 34.1, [place] % (Auto) 8.6, Eos % (Auto) 2.7, Baso % (Auto) 0.4, Absolute Neuts (auto) 1.4 L, Absolute Lymphs (auto) 0.87, Nucleated RBC % 0, Reactive Lymphocytes RARE Microbiology: Microbiology 10/11/21 08:20 Nasal Secretion SARS-CoV-2 Antigen (Rapid) - Final 10/09/21 10:55 Stool Stool Occult Blood (CHILO) - Final Occult Blood Positive D/C Instructions Discharge Diet: No restrictions Weight Bearing Status: Weight bearing as tolerated Call your doctor if you observe: Fever of 101 or Higher, Numbness or Tingling, Shortness of breath, Dizziness, Chest pain, Increased palpitations (irregular heartbeat) and Calf discomfort Please Follow Up With: Primary care provider When: Within the next two weeks. Meaningful Use Info Meaningful Use Diagnoses (Choose all that apply): None applicable Discharge Plan Admission Admit Date/Time: 10/09/21 14:01 Primary Reason for Your Visit: Acute blood loss anemia. Attending Provider: Akanksha Martínez Primary Care Provider: Onur Garcia Instructions Additional Instructions / Restrictions: * your Eliquis has been discontinued on recommendation of your oncologist, follow up with him at his recommendation. Discharge Orders/Prescriptions Prescriptions: New pantoprazole 40 mg Tablet,Delayed Release (Dr/Ec) 40 mg PO BID Qty: 60 RF: 0 Continued ferrous sulfate 325 MG tablet 325 mg PO QHS RF: 0 allopurinol 300 mg tablet 300 mg PO DAILY RF: 0 calcium carbonate-vitamin D3 [Calcium 500 + D] 500 mg(1,250mg) -400 unit Tablet 1 tab PO BID RF: 0 gabapentin 100 MG capsule 300 mg PO TID RF: 0 sertraline 100 mg Tablet 100 mg PO DAILY RF: 0 folic acid 1 mg Tablet 1 mg PO DAILY RF: 0 thiamine HCl (vitamin B1) 50 mg Tablet 100 mg PO DAILY RF: 0 atenolol 25 MG tablet 12.5 mg PO QHS RF: 0 Discontinued Xarelto 20 mg tablet 20 mg PO QHS RF: 0 Referrals / Follow Up: Onur Garcia MD [Primary Care Provider] - Within 2 Weeks Kodi Brunson MD [STAFF PHYSICIAN] - See Referral Note (Follow up at Dr. Brunson's recommendation. ) Disposition Disposition (needs filled in before D/C Order can be placed): Inpatient Rehab Unit/Facility Documented by User: Dr. Akanksha Martínez MD 10/12/21 14:35 Providers Date of Admission: 10/09/21 Reason For Visit: ACUTE ON CHRONIC ANEMIA Medications at Discharge Home Medications ferrous sulfate 325 mg PO QHS 06/18/20 allopurinol 300 mg PO DAILY 05/27/21 calcium carbonate-vitamin D3 [Calcium 500 + D] 1 tab PO BID 05/27/21 gabapentin 300 mg PO TID 05/27/21 atenolol 12.5 mg PO QHS 10/09/21 folic acid 1 mg PO DAILY 10/09/21 sertraline 100 mg PO DAILY 10/09/21 thiamine HCl (vitamin B1) 100 mg PO DAILY 10/09/21 pantoprazole 40 mg PO BID #60 tab 10/12/21 ABG / Lab / Microbiology Data Result Diagrams: 10/12/21 04:28 10/12/21 04:28 Discharge Plan Admission Admit Date/Time: 10/09/21 14:01 Primary Reason for Your Visit: Acute blood loss anemia. Attending Provider: Akanksha Martínez Primary Care Provider: Onur Garcia Instructions Additional Instructions / Restrictions: * your Eliquis has been discontinued on recommendation of your oncologist, oleg davis up with him at his recommendation. Discharge Orders/Prescriptions Prescriptions: New pantoprazole 40 mg Tablet,Delayed Release (Dr/Ec) 40 mg PO BID Qty: 60 RF: 0 Continued ferrous sulfate 325 MG tablet 325 mg PO QHS RF: 0 allopurinol 300 mg tablet 300 mg PO DAILY RF: 0 calcium carbonate-vitamin D3 [Calcium 500 + D] 500 mg(1,250mg) -400 unit Tablet 1 tab PO BID RF: 0 gabapentin 100 MG capsule 300 mg PO TID RF: 0 sertraline 100 mg Tablet 100 mg PO DAILY RF: 0 folic acid 1 mg Tablet 1 mg PO DAILY RF: 0 thiamine HCl (vitamin B1) 50 mg Tablet 100 mg PO DAILY RF: 0 atenolol 25 MG tablet 12.5 mg PO QHS RF: 0 Discontinued Xarelto 20 mg tablet 20 mg PO QHS RF: 0 Referrals / Follow Up: Onur Garcia MD [Primary Care Provider] - Within 2 Weeks Kodi Brunson MD [STAFF PHYSICIAN] - See Referral Note (Follow up at Dr. Brunson's recommendation. ) Disposition Disposition (needs filled in before D/C Order can be placed): Inpatient Rehab Unit/Facility Charges/Coding Addendum Addendum: Patient seen by Estrada Andrews PA-C under my supervision Patient is a 71-year-old male with a past medical history as outlined was admitted through the ED on 10/09/2021 on account of abnormal labs done in his detention facility. His labs done showed hemoglobin of 6.7 and magnesium of 1.1. He denied any bleeding per rectum or melena as well as any hematochezia or hematuria abscesses as well as hematemesis. Patient was on Xarelto for previous DVT and had had blood transfusions previously on account of anemia. Stool for occult blood was positive. Was admitted and managed for acute on chronic anemia likely due to GI bleed in light of positive occult blood in stool as well as hypomagnesemia. His magnesium was replaced. GI was consulted and patient had EGD and colonoscopy which showed reflux esophagitis and a single angiodysplastic lesion in the stomach which was treated with argon plasma. Colonoscopy showed multiple polyps in the transverse colon as well as one single bleeding colonic lesion which was treated with argon plasma. Patient's oncologist and PCP was contacted about patient Xarelto and a transplant that patient had a popliteal DVT in April 2021 and was placed on anticoagulation by his oncologist. His oncologist Dr. Dunbar recommended that blood thinners could be discontinued as he had been appropriately anticoagulated for 6 months and duplex did not show any evidence of DVT. During admission, patient was transfused with 1 unit of packed red blood cells. Patient remained stable and was discharged home on 10/12/2021. He was discharged to a detention facility and is to follow-up with his primary care doctor, hematology oncology as well as gastroenterology. Patient was seen and examined prior to discharge. He had no active complaints and review of systems otherwise negative. Labs and vitals reviewed. Home medication reviewed and reconciled. O/E: Const alert, oriented x3 and no apparent distress HEENT head/scalp atraumatic and moist oral mucous membranes Head and Scalp: normocephalic Eyes PERRL, EOMs intact bilaterally and conjunctivae normal Neck no lymphadenopathy, supple and no JVD Resp normal respiratory effort, no retractions and no use of accessory muscles Cardio regular rate, regular rhythm and no JVD GI normal to inspection, nondistended, normoactive bowel sounds Extremity normal to inspection Skin no rashes or lesions noted and no wounds Neuro CN's II-XII intact bilaterally Psych affect normal Plan is for discharge back to detention facility today. Rest as per Estrada Andrwes PA-C's note, which I have reviewed and endorsed Total time I spent on discharge: 45 minutes, with total time spent on discharge in total 65 mins, as PA spent 20 mins on discharge. Visit Charges Inpatient E&M: 10722 Disch Hosp
[2021-10-12 13:50] VITALS: BP 113/62; PULSE 60; RESP 18; TEMP 37.2; O2SAT 99
== END 2021-10-12 14:11 | DRG 377 ==
LOC: ED 12:58 → PCU 14:18
PROVIDERS: Anesthesiology; Internal Medicine Gastroenterology; Physician Assistant; Admitting Provider Internal Medicine; Emergency Provider Physician Assistant; PCP Family Medicine; Visit Provider Student in an Organized Health Care Education/Training Program
PROC: 0DJD8ZZ Inspection of Lower Intestinal Tract, Via Natural or Artificial Opening Endoscopic (ICD-10-PCS; CPT 45378; principal; 2021-10-11 11:55)
DX: K55.21 Angiodysplasia of colon with hemorrhage (principal); K21.01 Gastro-esophageal reflux disease with esophagitis, with bleeding; D61.818 Other pancytopenia; D62 Acute posthemorrhagic anemia; C90.01 Multiple myeloma in remission; K57.11 Diverticulosis of small intestine without perforation or abscess with bleeding; E83.51 Hypocalcemia; I48.0 Paroxysmal atrial fibrillation; G62.9 Polyneuropathy, unspecified; D50.9 Iron deficiency anemia, unspecified; K63.5 Polyp of colon; E78.5 Hyperlipidemia, unspecified; I10 Essential (primary) hypertension; E83.42 Hypomagnesemia; M70.22 Olecranon bursitis, left elbow; F41.9 Anxiety disorder, unspecified; E87.6 Hypokalemia; J45.909 Unspecified asthma, uncomplicated; G47.33 Obstructive sleep apnea (adult) (pediatric); K31.811 Angiodysplasia of stomach and duodenum with bleeding; F32.A Depression, unspecified; Z20.822 Contact with and (suspected) exposure to COVID-19; Z79.01 Long term (current) use of anticoagulants; Z86.718 Personal history of other venous thrombosis and embolism; Z79.899 Other long term (current) drug therapy
CPT/HCPCS: 36415; 36591; 73070; 80048; 80076; 82077; 82274; 83735; 84100; 85025; 85610; 85730; 86850; 86900; 86901; 86920; 86921; 86922; 87040; 87426; 88305; 93005; 93970; 97110; 97162; 97166; 97530; 97535; 97802; 99285; J7030; P9016; A4216; J0610; J2405

== ENCOUNTER 2021-10-12 14:20 | Inpatient (IN) | payer MEDICARE, BC, SELFPAY ==
[2021-10-12 14:33] VITALS: BP 135/78; PULSE 88; RESP 18; TEMP 36.8; O2SAT 97; BMI 24.7
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
[2021-10-12 16:26] VITALS: BP 128/69; BP 133/70; BP 133/76; PULSE 78; PULSE 87; PULSE 96
--- NOTE | 2021-10-12 17:27 | PCM.RU.PYE ---
Admission Information Primary Diagnosis:: Physical debility due to recent COVID infection, alcoholism with generalized weakness and MM with pancytopenia. Status Changes from Prescreening?: No changes Identified Actual Problem List:: Falls, Skin Intergrity, Cognitve Impr/Memory Loss, Depression, Bladder Incontinence, Mobility Impaired, Self Care Deficit, Know.Dfct of Medicaitons, Alteration/ Air Exchange and Alteration-Leisure Activ. Potential Problem List:: DVT, Bleeding, Infection, UTI, Aspiration, Falls, Skin Integrity and Depression Risk of Complications DVT: TANYA Hose and - (Heparin 5000 units subcu every 12 hours) Bleeding: Monitor Lab Values, Nursing to Teach Precautions for anti-coagulation therapy., Wound, if applicable, to be assessed every shift. and Stroke patients assessed for lethargy or change in status. Infection: Clinical Staff to Monitor for S/S of infection: and S/S of infection include fever, redness, warmth, etc. Urinary Tract Infection: Monitor for frequency, burning, discomfort, or incontinence. and Nursing will obtain urine sample for urinalysis and C&S when ordered. Aspiration: Clinical staff will monitor for coughing, drooling, congestion., Speech will evaluate swallowing and dsyphasia. and Nursing will monitor patient swallowing during meals. Falls: Patient will be evaluated for Fall Precautions and Patient will be placed on Fall Precautions as indicated per protocol. Skin Breakdown: Nursing will assess skin daily using assessment tool. and Nursing will place on Skin Breakdown Precautions as indicated. Pain: Clinical staff will assess patient's pain level per protocol., Medications will be given, if needed, and the pain level reassessed. and Other methods: Massage, distraction, decrease stimulus, etc. used PRN. Plan of Care Patient requires physician specializing in physical medicine and rehab oversight to provide close medical supervision of rehab issues including: Pain Management, Sleep Problems, Bowel and Bladder, Medical and co-morbidity Management, DVT prophylaxis, Rehabilitation Leadership and Coordination of treatment team Patient needs Physical Therapy: For a minimum of 1 hour and At least 5 out of 7 days Patient needs Physical Therapy to improve:: Mobility, Strengthening, Transfers, Stretching, ROM, Endurance, Stairs, Gait and Balance Patient needs Occupational Therapy: For a minimum of 1 hour and At least 5 out of 7 days Patient needs Occupational Therapy to improve ADL's incl.: Eating, Grooming, Bathing, Dressing, Toileting, Toilet transfers, Community Reintegration, Higher functioning activities, Household tasks, Adaptive Equipment, Splinting and Other activities as determined Patient requires speech therapy: For a minimum of 1 hour and At least 5 out of 7 days Patient requires speech therapy for: Swallowing, Cognition, Language Skills and Compensatory Strategies Patient requires 24/ Rehabilitation Nursing for: Pain Issues, Identifying and preventing risk factors, Monitoring and reporting current medical conditions, Assisting with ambulation, transfer, and all ADL's, Teaching patients about disease process and medications, Family teaching, Providing safe environment, Bowel and Bladder Issues, Skin integrity and Medication Management Patient needs Boring Mill Operator For Metal/ Case Management for: Discharge Planning, Arranging Home Equipment or Services and Family Interventions Patient needs Dietary and Nutrition Services for: Adequate Nutrition, Nutritional Supplements and Nutritional Education Goals Patient will remain: free from falls and or injury at time of discharge. Patient will perform bed mobility at: MOD I level of assist. Patient will complete transfers from bed to chair at: MOD I level of assist. Patient will ambulate: 100 feet, with LRD and - (300 feet with least restrictive device at standby assist on various surfaces to allow him to return home/community with support) Patient will complete upper body dressing at: MOD I level of assist. Patient will complete lower body dressing at: MOD I level of assist. Patient will complete toileting at: MOD I level of assist. Patient will perform bathing at: MOD I level of assist. Patient will complete grooming at: MOD I level of assist. Patient will complete home management skills at: MOD I level of assist. Patient will achieve: 12 stairs (With 1 handrail at standby assist to allow access to his basement) and - (1 curb step) Patient will have pain level of: of 3 or less Patient's skin will: remain intact Patient will receive: adequate nutrition. Discharge Planning Pt Prognosis for Sig. Practical Improv. w/in Reasonable Time: Good Estimated Length of stay (days): 21 Anticipated D/C Destination: Home w/ family or friends Was Preadmission Assessment Accurate?: Yes
[2021-10-12] MEDS: Calcium Carb/Vitamin D 1 TABLET Tablet PO (17:42)
[2021-10-12] MEDS: Heparin Injection (Vial) 5,000 UNIT/ML VIAL 5000 UNIT SC (19:28)
[2021-10-12] MEDS: Gabapentin 300 MG Capsule PO (19:28)
[2021-10-12 19:29] VITALS: BP 116/79; PULSE 82; RESP 18; TEMP 36.8; O2SAT 97
[2021-10-12] MEDS: Senna/Docusate Sodium 1 Tablet 2 TABLET PO (19:29)
[2021-10-12] MEDS: Atenolol 25 MG Tablet 12.5 MG PO (19:29)
[2021-10-12] MEDS: Pantoprazole Sodium 40 MG Tablet PO (19:29)
--- NOTE | 2021-10-13 01:03 | NURSING ---
pt incont of urine. Pt bladder scan for 82cc
[2021-10-13 05:40] VITALS: O2SAT 94
[2021-10-13] MEDS: Gabapentin 300 MG Capsule PO ×3 (05:41→21:25)
[2021-10-13 06:37] LABS: Ferritin 1248 ng/mL (26-388); Iron 17 ug/dL (65-175); Iron Binding Capacity,Total 98 ug/dL (250-450); PERCENT IRON SATURATION 17.3 % (15.0-55.0); Phosphorus 1.8 mg/dL (2.5-4.9); Uric Acid 2.9 mg/dL (3.5-7.2)
[2021-10-13] MEDS: Allopurinol 300 MG Tablet PO (07:40)
[2021-10-13] MEDS: Pantoprazole Sodium 40 MG Tablet PO ×2 (07:40→21:25)
[2021-10-13] MEDS: Senna/Docusate Sodium 1 Tablet 2 TABLET PO (07:40)
[2021-10-13] MEDS: Folic Acid 1 MG Tablet PO (07:40)
[2021-10-13] MEDS: Thiamine Hydrochloride 100 MG Tablet PO (07:40)
[2021-10-13] MEDS: Calcium Carb/Vitamin D 1 TABLET Tablet PO ×2 (07:40→17:29)
[2021-10-13] MEDS: Spironolactone 25 MG Tablet PO (07:40)
[2021-10-13] MEDS: Sertraline 100 MG Tablet PO (07:40)
[2021-10-13] MEDS: Heparin Injection (Vial) 5,000 UNIT/ML VIAL 5000 UNIT SC (07:41)
[2021-10-13 07:50] VITALS: BP 150/90; PULSE 100; RESP 16; TEMP 36.5; O2SAT 93
[2021-10-13 09:07] VITALS: BP 117/71; BP 125/80; BP 136/70; PULSE 106; PULSE 109; PULSE 96
[2021-10-13] MEDS: Ascorbic Acid 500 MG Tablet PO (11:59)
[2021-10-13] MEDS: Ferrous Sulfate 325 MG Tablet PO (11:59)
--- NOTE | 2021-10-13 14:33 | CASEMGMT ---
Social Work SW asked Owen, pt navigator from [facility], to come see pt as time allows. She states will come see pt tomorrow. NIRU Whitlock
--- NOTE | 2021-10-13 16:12 | PN_ITS ---
Progress Note Afebrile VSS-he is still positive today. Maintaining appropriate oxygen saturation on RA Oral intake is good Discussed with nursing - no problems that need addressed Reviewed the PT/OT notes - ST will evaluate tomorrow. Medication list reviewed. All lab from today was personally reviewed. Uric acid is only 2.9. Phosphorus is low at 1.8. Magnesium is still pending. Serum iron is low at 17, TIBC is very low at 98, iron saturation is 17.3% and the ferritin is 1248. Cortisol was normal at 18.6. He denies lightheadedness but he has MTZ and poor exercise tolerance. He was able to do the TUG 3 times a day with the therapist. No N/V and he is eating well.......he was not eating at [place] for the past 3 weeks. He was only in [facility] for 4 days and then was sent to [place]. I am going to put heparin on hold until I see the PLT count tomorrow. Nursing said he had some old blood with BM today. No CP and no SOB at rest. His told me that he started drinking 6 months after his last DC from rehab. He had vodka bottles hidden throughout the house. She tells me that she has been attending [facility] and is learning not to enable him. He is very debilitated at this time. Physical Exam Const alert and no apparent distress Constitutional Narrative: His face is much rounder than it was the lst time he was in rehab General Appearance: cooperative HEENT normocephalic Eyes conjunctivae normal and no scleral icterus Resp Resp Narrative: coarse crackles in the bases that resolve after a few deep breaths. He has an IS in his room and has been instructed to do 10 breaths every hour he is awake. Effort and Inspection: able to speak in complete sentences Cardio no murmurs and no gallops Cardio Narrative: He is tachycardic with standing and with exercise GI soft to palpation GI Narrative: No guarding with palpation. Bowel sounds are normal and not hyperactive. He is a little distended and tympanic. Extremity no calf tenderness Extremity Narrative: He has bilateral pitting edema of the lower extremities that extends up into the posterior thighs. General Extremity: edema bilateral Skin Skin Narrative: cox/pale Neuro Neuro Narrative: His thought processes are slow and he is slow to answer questions. Assessment & Plan Assessment/Plan (1) Hypophosphatemia: (2) Acute on chronic anemia: (3) Hyponatremia: (4) Pancytopenia: PLAN: 1. Recheck a CBC and a BMP in the AM 2. He has iron deficiency - will D/W Dr. Brunson whether he wants this pt to get IV iron sucrose during his admission to rehab. 3. Supplement the phosphorous 4. Awaiting the result of the Mag level which is still pending 5. Albumin is very low at 1.7 and I suspect his wt looks good because he has a lot of extra fluid on board with pitting edema of both legs to the mid thigh. Will discuss this with the pallet sorter. 6. He is incontinent of urine so I do not know what the urine OP or fluid balance is. Will order daily weights. 7. Decrease the allopurinol to 200 mg daily.....this may be contributing to pancytopenia. the UA should be kept less than 5 to prevent gouty attacks. He needs to abstain from alcohol. He in my7 opinion is malnourished....will talk to the pallet sorter about restricting purines but maintaining good nutritional support. We received records from Dr. Dunbar which I reviewed. In mid August 2021 the white blood cell count was 7.84 with a hemoglobin of 11 and platelets were 168,000. Albumin was 3.2 and calcium was 7.6. The BUN was 10 and the creatinine was 0.84 with a normal sodium, normal potassium. Iron studies at that time revealed a serum iron of 41 with a TIBC of 153 and a transferrin saturation of 27. Ferritin was 1013. At that time Dr. Velasquez felt he was in complete remission and his M protein level was 0. The plan at that time was to continue Xarelto indefinitely with myeloma maintenance treatment. He was to get Zometa every 3 months starting in 2021. Visit Charges Inpatient E&M: 85044 Subs Hosp L2
--- NOTE | 2021-10-13 16:28 | CASEMGMT ---
Social Work Met with patient to complete initial assessment. Explained Medicare benefit. Pt has since moved to a ran home from previous admissions with only 2 steps to enter. Pt and are retired. Pt and this worker discussed alcohol habits. Pt interested and agreeable to Dr. Truong's suggestion for [facility] counseling for both alcohol and mental health, and to have someone from that agency to explain further about their services. Pt stated he was unsure if his knew how much he drank, but would like to tell her because she will find out sooner or later. Commended pt for open and honest communication and bravery it takes to admit and take steps toward change. Offered to assistance with conversation. Pt appreciative. SW to continue to follow. Arianna Islas, RIVAS ENGLISHW
--- NOTE | 2021-10-13 16:55 | CHAPLAIN ---
Type of Pastoral Visit ___ Initial Visit _x__ Follow-up Visit ___ On-call Visit ___ General Patient Visit ___ Spiritual Assessment ___ Family Conference ___ Bereavement ___ Rapid Response ___ Code Blue ___ Other (describe below) Pastoral Care Referral From _x__ Patient ___ Family ___ Nurse ___ Physician ___ Horizontal Boring Mill Set Up Operator ___ Bit And Shank Department Supervisor ___ Other (describe below) Sacrament/Intervention _x__ Active listening ___ Anointing ___ Hinduism ___ Bereavement ___ Communion ___ Marline exploration ___ ___ Life review ___ Prayer ___ Reconciliation ___ Sacrament of Sick _x__ Supportive presence ___ Wedding ___ Other (describe below) Pastoral Comments returned to see patient who was moved today to Rehab; SW was present and left; spouse came at this same time; spouse very interactive and supportive of spiritual care; pt did talk briefly
[2021-10-13 21:00] VITALS: BP 160/99; PULSE 92; RESP 18; TEMP 36.3; O2SAT 97
[2021-10-13] MEDS: Atenolol 25 MG Tablet 12.5 MG PO (21:25)
[2021-10-13] MEDS: Menthol/Lanolin/Calamine/Znox 113 GM Tube 1 APPLIC TOPICAL (21:26)
[2021-10-14] MEDS: Gabapentin 300 MG Capsule PO ×3 (05:10→20:39)
[2021-10-14 05:26] LABS: Hematocrit 21.7 % (40-54); Hemoglobin 7.1 g/dL (13.0-16.5); Mean Corp Hgb Conc 32.7 g/dL (32-36); Mean Corpuscular Hgb 30.5 pg (27.0-32.0); Mean Corpuscular Volume 93.1 fL (80-94); Platelet Count 121 K/mm3 (150-450); RBC Distribution Width CV 15.9 % (11.6-14.6); RBC Distribution Width SD 54.1 fl (35.1-43.9); Red Blood Count 2.33 M/mm3 (4.6-6.2); White Blood Count 3.5 K/mm3 (4.4-11.0)
[2021-10-14 05:46] LABS: Anion Gap 7 (5-15); BUN 10 mg/dL (7-18); BUN/Creat Ratio 14.4 RATIO (10-20); Calcium,Total 7.2 mg/dL (8.5-10.1); Chloride 107 mmol/L (98-107); Creatinine, Serum 0.69 mg/dL (0.70-1.30); EST Glomerular Filtration Rate 120 mL/min (>60); Est Glom Filt Rate - Afr Amer 145 mL/min (>60); Estimated Creatinine Clearance 76.52 ml/min; Glucose 93 mg/dL (74-106); Potassium 3.5 mmol/L (3.5-5.1); Sodium Level 138 mmol/L (136-145)
[2021-10-14 06:00] VITALS: BP 107/62; BP 128/73; BP 155/88; PULSE 103; PULSE 91; PULSE 96
--- NOTE | 2021-10-14 07:08 | NURSING ---
DR PETERSON NOTIFIED OF TODAY'S HG LEVEL. DR PETERSON WANTS DR LEMON CONTACTED.
--- NOTE | 2021-10-14 07:19 | NURSING ---
MESSAGE LEFT FOR DR LEMON THAT TODAY'S HG IS 7.1 AND THAT PT IS ORTHOSTATIC POSITIVE THIS AM.
[2021-10-14 07:50] VITALS: BP 128/73; PULSE 94; RESP 18; TEMP 37.1; O2SAT 93
[2021-10-14] MEDS: Sertraline 100 MG Tablet PO (08:04)
[2021-10-14] MEDS: Allopurinol 100 MG Tablet 200 MG PO (08:04)
[2021-10-14] MEDS: Calcium Carb/Vitamin D 1 TABLET Tablet PO ×2 (08:04→16:45)
[2021-10-14] MEDS: Folic Acid 1 MG Tablet PO (08:05)
[2021-10-14] MEDS: Thiamine Hydrochloride 100 MG Tablet PO (08:05)
[2021-10-14] MEDS: Spironolactone 25 MG Tablet PO (08:05)
[2021-10-14] MEDS: Pantoprazole Sodium 40 MG Tablet PO ×2 (08:05→20:37)
[2021-10-14] MEDS: Menthol/Lanolin/Calamine/Znox 113 GM Tube 1 APPLIC TOPICAL ×2 (08:08→20:37)
--- NOTE | 2021-10-14 09:15 | PCM.PN.BLA ---
Progress Note Afebrile VSS-more orthostatic today. Laying down blood pressure was 155/88, sitting up it dropped to 128/73 and when standing it dropped to 107/62. Maintaining appropriate oxygen saturation on RA Oral intake yesterday was 1680 and he had an additional 650 cc of IV fluid with phosphate supplementation. Discussed with nursing - nursing was concerned about the + orthostatics and the low HGB. He has had 1 post void residual and it was 82. He continues to be incontinent of urine. Reviewed the PT/OT/ST notes Medication list reviewed. All lab was personally reviewed. White blood cell count is 3.5, up from 2.7 on 10/11/2021. Hemoglobin is stable and is 7.1 today. Platelets are up to 121,000 from 101,000 on 10/11/2021. Potassium is borderline at 3.5. The BUN is 10 with a creatinine of 0.69. Calcium corrected for hypoalbuminemia is within normal limits. He is c/o of fatigue and of MTZ. Denies CP or SOB at rest. He is eating better than he did at [facility]. He is incontinent of urine. Denies nausea and denies dysuria. Physical Exam Const Constitutional Narrative: more alert than at admission. The edema of the legs is much better now that he has TEDS on. He is very pale. General Appearance: cooperative Eyes PERRL, EOMs intact bilaterally and no scleral icterus Resp Resp Narrative: decreased BS's, timothy in the bases. He is very weak and the effort is poor. Effort and Inspection: able to speak in complete sentences Cardio regular rate Cardio Narrative: HR when standing is not going up appropriately because of the beta melody and he is orthostatic. GI normal to inspection, nondistended, normoactive bowel sounds, soft to palpation and non-tender GI Narrative: No guarding with palpation Extremity no calf tenderness and no pedal edema Extremity Narrative: TANYA hose are in place. Psych cooperative Attitude: calm Mood & Affect: flat affect and other He has poor insight into how sick he is and how he got this debilitated and really does not want to own up to how much he has been drinking Thought Process: loose associations Insight: poor Judgement: poor Assessment & Plan Assessment/Plan (1) Urinary incontinence: (2) Hypophosphatemia: (3) Acute on chronic anemia: (4) Peripheral edema: (5) Pulmonary hypertension: (6) Pancytopenia: (7) Debility: (8) GI bleed: (9) Hypoalbuminemia: PLAN: 1. Straight cath and send urine sample for complete UA. Will await the results prior to ordering urine culture. 2. Start potassium chloride 20 mEq daily. I would like to keep the potassium around 4. 3. We talked once again today about the piece chronic ETOH abuse plays in his current severe generalized weakness and how important alcohol rehab AND psychotherapy are to his recovery. 4. continue therapy. Visit Charges Inpatient E&M: 73282 Subs Hosp L2
[2021-10-14] MEDS: Potassium Chloride Oral Tablet 20 MEQ PO (10:09)
[2021-10-14 10:51] LABS: Mucous, Urine 0 SEEN /hpf (<or=2+); Red Blood Cells-Urine 0 SEEN /hpf (0-5); Squamous Epithelial Cells - UA 0 SEEN /hpf (0-5)
[2021-10-14 10:55] LABS: Color, Urine Yellow (Yellow); Glucose, Dipstick Normal (Normal); Ketone-Dipstick Negative (Negative); Leukocyte Esterase-Dipstick 100 /ul (Negative); Nitrite-Dipstick Positive (Negative); Occult Blood-Urine 10 /ul (Negative); Protein-Dipstick Negative (Negative); Urine Bilirubin Dipstick Negative (Negative); Urine Clarity Sl. Cloudy (Clear); Urine Urobilinogen Normal (Normal)
[2021-10-14 10:57] LABS: MG Sendout 1.3 mg/dL (1.6-2.3)
[2021-10-14 11:18] LABS: Bacteria 2+ /hpf (None Seen); White Blood Cells 0-5 SEEN /hpf (0-5)
[2021-10-14] MEDS: Ferrous Sulfate 325 MG Tablet PO (12:27)
[2021-10-14] MEDS: Ascorbic Acid 500 MG Tablet PO (12:27)
--- NOTE | 2021-10-14 15:45 | CASEMGMT ---
Social Work IDT met with patient and for Team meeting. Discussed patient's progress in PT/OT/ST and nursing. Explained Medicare benefit. Will await for approval of days. The goal is for pt to return home with who can assist. Revisited [facility] referral. happy for referral. Pt did inquire to if she knew how much he was drinking. She did know his drinking was excessive. Stating when they moved out f their prior house, she and family kept finding vodka bottles in multiple hiding places, so she was aware. She also spoke about going to her own counseling as drinking has put a major stress on their marriage and has learned she was enabling him. They were codependents. Commended her for seeking her own assistance to improve her mental health and relationship. Commended pt for confronting his and expressing his truth. SW to continue to follow. RIVAS SmithW
[2021-10-14 20:29] VITALS: BP 147/78; PULSE 88; RESP 18; TEMP 36.4; O2SAT 98
[2021-10-14] MEDS: Atenolol 25 MG Tablet 12.5 MG PO (20:38)
--- NOTE | 2021-10-15 04:30 | NURSING ---
Reviewed and agree with CYTOLOGY MANAGER assessment.
[2021-10-15 06:00] VITALS: BP 107/67; BP 134/77; BP 150/86; PULSE 104; PULSE 97; PULSE 98
[2021-10-15] MEDS: Gabapentin 300 MG Capsule PO ×3 (06:31→20:29)
[2021-10-15] MEDS: Potassium Chloride Oral Tablet 20 MEQ PO (07:49)
[2021-10-15] MEDS: Thiamine Hydrochloride 100 MG Tablet PO (07:50)
[2021-10-15] MEDS: Sertraline 100 MG Tablet PO (07:50)
[2021-10-15] MEDS: Calcium Carb/Vitamin D 1 TABLET Tablet PO ×2 (07:50→17:17)
[2021-10-15] MEDS: Senna/Docusate Sodium 1 Tablet 2 TABLET PO (07:50)
[2021-10-15] MEDS: Spironolactone 25 MG Tablet PO (07:50)
[2021-10-15] MEDS: Folic Acid 1 MG Tablet PO (07:51)
[2021-10-15] MEDS: Pantoprazole Sodium 40 MG Tablet PO ×2 (07:51→20:29)
[2021-10-15] MEDS: Allopurinol 100 MG Tablet 200 MG PO (07:55)
[2021-10-15 08:42] VITALS: O2SAT 98
[2021-10-15 08:44] VITALS: BP 150/86; PULSE 98; RESP 18; TEMP 36.9; O2SAT 96
[2021-10-15] MEDS: Ascorbic Acid 500 MG Tablet PO (12:03)
[2021-10-15] MEDS: Ferrous Sulfate 325 MG Tablet PO (12:03)
[2021-10-15] MEDS: Menthol/Lanolin/Calamine/Znox 113 GM Tube 1 APPLIC TOPICAL ×2 (12:04→20:32)
--- NOTE | 2021-10-15 12:07 | ADDICTION ---
Spoke with pt about his alocohol use. Pt denies excessive use. He reports that he understands that due to his current condition, drinking is harmful to his health. He reports some symptoms of depression due to isolation. TW left addiction workbook with pt. TW offered resources for pt. TW offered supportive counseling.
--- NOTE | 2021-10-15 14:13 | PCM.PN.BLA ---
Progress Note Afebrile Continues to be orthostatic with the blood pressure laying down 150/86, sitting was 134/77 and standing was 107/67. Denies feeling lightheaded. Poor exercise tolerance. + MTZ Much more alert than at admission incontinent of urine Urine culture growing > 100,000 colonies of a GM - nargis, lactose contracting executive Physical Exam Const alert and oriented x3 Constitutional Narrative: pale, weak Resp clear to auscultation bilaterally Resp Narrative: decreased respiratory effort, not tachypneic, MTZ, fatigues easily Effort and Inspection: able to speak in complete sentences Cardio regular rate, regular rhythm and no gallops GI normal to inspection, nondistended, normoactive bowel sounds and soft to palpation Extremity Extremity Narrative: pitting edema is only in the ankles now since he is moving around now and walking....has not walked in the past few weeks Skin General Skin Exam: no breakdown Rashes: no rashes Assessment & Plan Assessment/Plan (1) Acute on chronic anemia: (2) Hypophosphatemia: (3) Pancytopenia: (4) Obstructive sleep apnea: (5) GI bleed: (6) Orthostatic hypotension: (7) Urinary tract infection after immobility: PLAN: 1. Hold atenolol 2. Recheck CBC, BMP, magnesium and phosphorus in the a.m. 3. Overnight trending pulse ox-he snores loudly and has a history of obstructive sleep apnea and does not wear CPAP. Hypoxia may be contributing to cognitive dysfunction. 4. Continue therapy 5. Start cefadroxil 500 mg p.o. twice daily for urinary tract infection and await the final culture report/sensitivities. Visit Charges Inpatient E&M: 18911 Subs Hosp L1
[2021-10-15] MEDS: Cefadroxil 500 MG CAPSULE PO ×2 (17:17→20:29)
[2021-10-15 19:30] VITALS: BP 146/83; PULSE 102; RESP 20; TEMP 36.5; O2SAT 94
[2021-10-15 20:05] VITALS: PULSE 93; O2SAT 96
[2021-10-15] MEDS: Atenolol 25 MG Tablet 12.5 MG PO (20:29)
[2021-10-16] VITALS (8 sets, daily range): BP systolic 111–161; BP diastolic 65–82; PULSE 60–97; RESP 16–18; TEMP 36.1–36.9; O2SAT 93–98
[2021-10-16] MEDS: Gabapentin 300 MG Capsule PO ×3 (06:16→20:54)
[2021-10-16 06:23] LABS: Absolute Lymphocyte Count 1.34 X10^3/uL (0.83-4.51); Absolute Neutrophil Count 1.8 X10^3/uL (2.0-7.7); Basophil# 0.01 X10^3/uL; Basophil% 0.3 % (0-1); Eosinophil# 0.02 X10^3/uL; Eosinophils% 0.6 % (0-5); Hematocrit 21.1 % (40-54); Hemoglobin 6.8 g/dL (13.0-16.5); Lymphocyte # 1.34 X10^3/ul (0.83-4.51); Lymphocyte % 38.1 % (19-41); Mean Corp Hgb Conc 32.2 g/dL (32-36); Mean Platelet Vol. 10.5 fl (6.2-12.0); Monocyte# 0.31 X10^3/uL; Monocyte% 8.8 % (0-10); NRBC Flagged by Analyzer 0 % (0-5); Neutrophil % 51.1 % (47-70); POSITIVE MORPHOLOGY YES; Platelet Count 143 K/mm3 (150-450); RBC Distribution Width CV 16.4 % (11.6-14.6); RBC Distribution Width SD 55.6 fl (35.1-43.9); Red Blood Count 2.27 M/mm3 (4.6-6.2); White Blood Count 3.5 K/mm3 (4.4-11.0)
[2021-10-16 06:25] LABS: Differential Indicated SCAN CRITERIA MET
[2021-10-16] MEDS: 0.9% Saline Lock 10 ML Syringe IV (06:49)
[2021-10-16 06:52] LABS: Differential Comment SCANNED
[2021-10-16 07:21] LABS: Anion Gap 6 (5-15); BUN 11 mg/dL (7-18); BUN/Creat Ratio 17.5 RATIO (10-20); Calcium,Total 7.9 mg/dL (8.5-10.1); Chloride 105 mmol/L (98-107); Creatinine, Serum 0.63 mg/dL (0.70-1.30); EST Glomerular Filtration Rate 134 mL/min (>60); Est Glom Filt Rate - Afr Amer 162 mL/min (>60); Estimated Creatinine Clearance 76.52 ml/min; Glucose 86 mg/dL (74-106); Sodium Level 137 mmol/L (136-145)
[2021-10-16] MEDS: Atenolol 25 MG Tablet 12.5 MG PO (07:44)
[2021-10-16] MEDS: Pantoprazole Sodium 40 MG Tablet PO ×2 (07:44→20:54)
[2021-10-16] MEDS: Potassium Chloride Oral Tablet 20 MEQ PO (07:45)
[2021-10-16] MEDS: Allopurinol 100 MG Tablet 200 MG PO (07:45)
[2021-10-16] MEDS: Calcium Carb/Vitamin D 1 TABLET Tablet PO ×2 (07:45→17:59)
[2021-10-16] MEDS: Sertraline 100 MG Tablet PO (07:45)
[2021-10-16] MEDS: Folic Acid 1 MG Tablet PO (07:46)
[2021-10-16] MEDS: Spironolactone 25 MG Tablet PO (07:47)
[2021-10-16] MEDS: Menthol/Lanolin/Calamine/Znox 113 GM Tube 1 APPLIC TOPICAL ×2 (07:48→20:53)
[2021-10-16] MEDS: Thiamine Hydrochloride 100 MG Tablet PO (07:48)
[2021-10-16] MEDS: Cefadroxil 500 MG CAPSULE PO ×2 (10:11→20:52)
[2021-10-16] MEDS: Ferrous Sulfate 325 MG Tablet PO (13:27)
[2021-10-16] MEDS: Furosemide 20 MG/2 ML VIAL IV (21:00)
--- NOTE | 2021-10-16 21:07 | NURSING ---
Blood transfusion complete and lasix iv administered.
[2021-10-17] VITALS (8 sets, daily range): BP systolic 120–136; BP diastolic 70–83; PULSE 55–60; RESP 16–17; TEMP 35.9–36.7; O2SAT 97–98
[2021-10-17] MEDS: Gabapentin 300 MG Capsule PO ×3 (06:11→22:07)
[2021-10-17] MEDS: Allopurinol 100 MG Tablet 200 MG PO (07:52)
[2021-10-17] MEDS: Pantoprazole Sodium 40 MG Tablet PO ×2 (07:52→22:07)
[2021-10-17] MEDS: Calcium Carb/Vitamin D 1 TABLET Tablet PO ×2 (07:52→16:13)
[2021-10-17] MEDS: Folic Acid 1 MG Tablet PO (07:52)
[2021-10-17] MEDS: Spironolactone 25 MG Tablet PO (07:52)
[2021-10-17] MEDS: Sertraline 100 MG Tablet PO (07:53)
[2021-10-17] MEDS: Potassium Chloride Oral Tablet 20 MEQ PO (07:53)
[2021-10-17] MEDS: Thiamine Hydrochloride 100 MG Tablet PO (07:56)
[2021-10-17] MEDS: Menthol/Lanolin/Calamine/Znox 113 GM Tube 1 APPLIC TOPICAL (07:59)
[2021-10-17 08:29] LABS: MG Sendout 1.2 mg/dL (1.6-2.3)
[2021-10-17] MEDS: Cefadroxil 500 MG CAPSULE PO ×2 (10:05→22:07)
--- NOTE | 2021-10-17 11:18 | NURSING ---
Blood transfusion initiated and Afia Shin RN cosigned. Blood began at 15ml per hour and VS 97.0-17-60-135/65-98% RA.
[2021-10-17] MEDS: Ferrous Sulfate 325 MG Tablet PO (11:42)
--- NOTE | 2021-10-17 12:19 | PN_ITS ---
Progress Note Day #3/7 cefadroxil Afebrile Vital signs stable Maintaining appropriate oxygen saturation on room air No problems reported by nursing Fluid oral intake Remains incontinent of urine. Labs yesterday revealed a hemoglobin of 6.8 and he was transfused with 1 unit of packed red blood cells and will receive a second unit today. White blood cell count remains low at 3.5 with increased immature neutrophils. Platelets were up to 143,000. BMP is unremarkable but the magnesium is low at 1.2....he had 4GM IV earlier in the week. Phosphorus is normal. Urine culture grew a pansensitive E. coli with the exception of nitrofurantoin and it was only intermediately sensitive. I reviewed the overnight trending pulse ox and 20% of the time of the pulse ox is less than 90%. Has been diagnosed with sleep apnea in the past and has been non-compliant with CPAP. We discussed this with Chun and his and I told them that untreated sleep apnea is the most likely cause of the pulmonary HTN and certainly contributes to fatigue, poor memory and confusion. It also likely contributes to his addiction and can cause PAF with potential for CVA's. He bianca d me that he would not want to have to have oxygen so he will agree to a sleep study and CPAP........will need to check with the if he can have a sleep study at [facility] Physical Exam Const alert, oriented x3 and no apparent distress Constitutional Narrative: Sitting in the recliner and appears in NAD. He is very alert today and is feeling less fatigued since the blood transfusion. Denies SOB. General Appearance: cooperative, well kempt and well developed HEENT normocephalic HEENT Narrative: His face is less puffy today and he has some color in his cheeks Eyes PERRL, EOMs intact bilaterally, conjunctivae normal and no scleral icterus Resp normal respiratory effort and clear to auscultation bilaterally Cardio regular rate, regular rhythm and no gallops GI normal to inspection, nondistended, normoactive bowel sounds and soft to pal pation Extremity no calf tenderness and no pedal edema Extremity Narrative: The pedal edema is controlled with TANYA hose and increased activity. He has his legs elevated when he is sitting in the chair. Skin General Skin Exam: no breakdown Rashes: no rashes Neuro oriented x3, CN's II-XII intact bilaterally, moves all extremities, no focal motor deficits and no sensory deficits noted Psych cooperative Psych Narrative: less flat Attitude: No bizarre Activity / Motor Behavior: Negative for psychomotor agitation, psychomotor slowing, fidgetting, hyperactive or restless Speech: normal speech Assessment & Plan Assessment/Plan (1) Urinary tract infection after immobility: (2) Urinary incontinence: (3) Acute on chronic anemia: (4) Pulmonary hypertension: (5) Pancytopenia: (6) Cognitive dysfunction: (7) Debility: (8) Obstructive sleep apnea: (9) Peripheral neuropathy: (10) Multiple myeloma: (11) Alcoholism: (12) Depression: QUALIFIERS: Depression Type: unspecified Qualified Code(s): F32.9 - Major depressive disorder, single episode, unspecified (13) Hyperuricemia: (14) GI bleed: (15) Hypomagnesemia: PLAN: 1. Continue cefadroxil for a total of 7 days 2. Magnesium sulfate 4 g IV today and then start magnesium 128 mg p.o. twice daily 3. Recheck BMP and magnesium on Monday 4. Recheck CBC on Monday 5. Continue therapy 6. Set up a sleep study prior to discharge and then will need to follow-up with pulmonary medicine or sleep medicine 7. 180 we will see him for chronic alcohol abuse while he is in the hospital and hopefully he will follow-up as an outpatient for counseling for alcoholism and for depression/PTSD 8. Will need to follow-up with Dr. Dunbar post discharge 9. Nasal O2 at 2 L/min while sleeping until he has been tested and prescribed CPAP Visit Charges Inpatient E&M: 54791 Subs Hosp L2
[2021-10-17] MEDS: Magnesium Sulfate 4gm/100mL 4 GM/100 ML IV.SOLN. IV (16:14)
[2021-10-17] MEDS: 0.9% Saline Lock 10 ML Syringe IV (16:22)
[2021-10-18] MEDS: Menthol/Lanolin/Calamine/Znox 113 GM Tube 1 APPLIC TOPICAL ×3 (00:31→22:51)
--- NOTE | 2021-10-18 04:29 | NURSING ---
Reviewed and agree with WILDLIFE CONTROL OPERATOR documentation and assessment charting.
[2021-10-18 06:00] VITALS: BP 106/59; BP 149/83; BP 150/81; PULSE 109; PULSE 90; PULSE 99
[2021-10-18] MEDS: Gabapentin 300 MG Capsule PO ×3 (06:11→22:47)
[2021-10-18] MEDS: Calcium Carb/Vitamin D 1 TABLET Tablet PO ×2 (08:49→17:18)
[2021-10-18] MEDS: Folic Acid 1 MG Tablet PO (08:50)
[2021-10-18] MEDS: Potassium Chloride Oral Tablet 20 MEQ PO (08:50)
[2021-10-18] MEDS: Cefadroxil 500 MG CAPSULE PO ×2 (08:51→22:47)
[2021-10-18] MEDS: Spironolactone 25 MG Tablet PO (08:51)
[2021-10-18] MEDS: Thiamine Hydrochloride 100 MG Tablet PO (08:51)
[2021-10-18] MEDS: Pantoprazole Sodium 40 MG Tablet PO ×2 (08:52→22:47)
[2021-10-18] MEDS: Sertraline 100 MG Tablet PO (08:52)
[2021-10-18] MEDS: Magnesium Chloride 64 MG Delay Rel.Tablet 128 MG PO ×2 (08:52→22:47)
[2021-10-18] MEDS: Senna/Docusate Sodium 1 Tablet 2 TABLET PO (08:52)
[2021-10-18] MEDS: Allopurinol 100 MG Tablet 200 MG PO (08:52)
[2021-10-18 09:02] VITALS: BP 149/83; PULSE 90; RESP 18; TEMP 36.3; O2SAT 93
[2021-10-18] MEDS: Acetaminophen 325 MG Tablet 650 MG PO (10:14)
--- NOTE | 2021-10-18 10:48 | PCM.PN.BLA ---
Progress Note Day #4 Cefadroxil for Klebsiella pneumoniae UTI afebrile Orthostatic vital signs are positive once again today. Blood pressure lying is 149/83 with a pulse of 90 and with standing the blood pressure is 106/59 with a heart rate of 109. Good oral intake. OP's are not reliable because he is incontinent of urine. PVR's are < 100 X3. He is incontinent of both urine and stool and I suspect this may be related to autonomic insufficiency/neurogenic orthostatic hypotension.....possibly due to long standing alcohol abuse. Somehow he got off Midodrine since the last time I saw him. He is orthostatic even when well hydrated and with chemo, ETOH excess and poor appetite he is frequently not well hydrated at home. He was not started on Midodrine again when he was admitted to the hospital in May for orthostatic hypotension when the Systolic dropped into the 60's with standing. HGBA was 7 at that time and he was transfused. BUN at that time was 24 and the creat was 1.39. The Midodrine was not restarted because the BP lying down was in the 140's? The DC summary states the orthostatic BP's improved after hydration and transfusion of 2 units of PRBC's.....it does not say it resolved. Currently he is on Atenolol 12.5. Denies lightheadedness, chest pain, shortness of breath, palpitations. He states the shortness of breath has improved with transfusion of 2 units of packed red blood cells. No calf pain. He is not on an anticoagulant at this time....TANYA hose and ambulation and SCD's being used for DVT prophylaxis. Physical Exam Const alert, oriented x3 and no apparent distress Constitutional Narrative: more focused and his thought processing has improved. Eyes conjunctivae normal and no scleral icterus Resp clear to auscultation bilaterally Effort and Inspection: able to speak in complete sentences Cardio regular rate, regular rhythm and no gallops GI normal to inspection, nondistended, normoactive bowel sounds, soft to palpation and non-tender Extremity no calf tenderness and no pedal edema Skin General Skin Exam: no breakdown Rashes: no rashes Psych cooperative Attitude: calm Activity / Motor Behavior: appropriate eye contact Mood & Affect: flat affect; Negative for apathetic, irritable or tearful Assessment & Plan Assessment/Plan (1) Urinary tract infection after immobility: (2) Autonomic neuropathy: (3) Orthostatic hypotension: (4) Urinary incontinence: (5) Fecal incontinence: (6) Pancytopenia: (7) Debility: (8) Multiple myeloma: (9) GI bleed: (10) Acute on chronic anemia: PLAN: 1. Place the Atenolol and the Aldactone on hold. Continue the TANYA hose. 2. Recheck the orthostatic VS Q AM X3.......if they do not improve will start Midodrine. He has multiple falls with serious consequences (ICH) in the past due to orthostatic hypotension/fall. 3. Recommended to him that he get a tilt table test following DC 4. CBC and BMP ordered for the AM 5. Continue the Cefadroxil for a total of 7 days. 6. Because the HR drops with standing I suspect he has neurogenic orthostatic hypotension. Beta blockers can cause......so can SSRI's although he was not on an SSRI prior to me seeing him in 2019 and he was severely orthostatic at that time. Visit Charges Inpatient E&M: 89570 Subs Hosp L2
[2021-10-18] MEDS: Ferrous Sulfate 325 MG Tablet PO (14:04)
[2021-10-18 22:00] VITALS: BP 149/85; PULSE 97; RESP 18; TEMP 36.8; O2SAT 92
[2021-10-18] MEDS: 0.9% Saline Lock 10 ML Syringe IV (22:51)
[2021-10-19 05:43] LABS: Hematocrit 27.5 % (40-54); Hemoglobin 8.9 g/dL (13.0-16.5); Mean Corp Hgb Conc 32.4 g/dL (32-36); Mean Corpuscular Hgb 29.3 pg (27.0-32.0); Mean Corpuscular Volume 90.5 fL (80-94); Mean Platelet Vol. 9.9 fl (6.2-12.0); Platelet Count 165 K/mm3 (150-450); RBC Distribution Width CV 15.7 % (11.6-14.6); RBC Distribution Width SD 52.2 fl (35.1-43.9); Red Blood Count 3.04 M/mm3 (4.6-6.2); White Blood Count 6.1 K/mm3 (4.4-11.0)
[2021-10-19] MEDS: Gabapentin 300 MG Capsule PO (06:08)
[2021-10-19 06:09] LABS: Anion Gap 6 (5-15); BUN 16 mg/dL (7-18); BUN/Creat Ratio 21.3 RATIO (10-20); Calcium,Total 8.6 mg/dL (8.5-10.1); Chloride 101 mmol/L (98-107); Creatinine, Serum 0.75 mg/dL (0.70-1.30); EST Glomerular Filtration Rate 110 mL/min (>60); Est Glom Filt Rate - Afr Amer 133 mL/min (>60); Estimated Creatinine Clearance 76.52 ml/min; Glucose 94 mg/dL (74-106); Potassium 4.2 mmol/L (3.5-5.1); Sodium Level 136 mmol/L (136-145)
[2021-10-19] MEDS: Calcium Carb/Vitamin D 1 TABLET Tablet PO ×2 (08:09→16:33)
[2021-10-19] MEDS: Folic Acid 1 MG Tablet PO (08:09)
[2021-10-19] MEDS: Potassium Chloride Oral Tablet 20 MEQ PO (08:09)
[2021-10-19] MEDS: Magnesium Chloride 64 MG Delay Rel.Tablet 128 MG PO ×2 (08:10→21:08)
[2021-10-19] MEDS: Cefadroxil 500 MG CAPSULE PO ×2 (08:10→21:08)
[2021-10-19] MEDS: Senna/Docusate Sodium 1 Tablet 2 TABLET PO ×2 (08:10→21:08)
[2021-10-19] MEDS: Thiamine Hydrochloride 100 MG Tablet PO (08:10)
[2021-10-19] MEDS: Sertraline 100 MG Tablet PO (08:11)
[2021-10-19] MEDS: Allopurinol 100 MG Tablet 200 MG PO (08:11)
[2021-10-19] MEDS: Pantoprazole Sodium 40 MG Tablet PO ×2 (08:18→21:08)
[2021-10-19] MEDS: Menthol/Lanolin/Calamine/Znox 113 GM Tube 1 APPLIC TOPICAL ×2 (08:21→21:09)
[2021-10-19 10:00] VITALS: BP 149/75; PULSE 88; RESP 14; TEMP 36.8; O2SAT 95
--- NOTE | 2021-10-19 11:13 | PCM.PN.BLA ---
Progress Note Blood pressure this a.m. was 149/75. Heart rate is in the 90s since we discontinued atenolol yesterday due to orthostatic hypotension He is maintaining appropriate oxygen saturation on room air He did not have orthostatic VS done this AM. He denied lightheadedness to me but, he did c/o dizziness to the OT. I&O not being recorded consistently. Continues to be incontinent of both stool and urine. Therapy notes were reviewed. Yesterday he is still requiring max assist of 1 to transfer from the toilet to stand at the sink with a front wheeled walker. Moderate to max assist of 1 to stand and pivot. He was able to ambulate 117 feet from his room to the therapy room at contact-guard assist. His legs felt very weak/fatigued at the end of therapy and he was pushed back to the therapy room in the WC. He is currently able to eat and groom himself at supervision/set up. He requires moderate assistance for bathing. He needs minimal assistance with upper body dressing but is needing maximum assistance with lower body dressing. He is total assistance for toileting. He is very deconditioned due to alcoholism, recent COVID infection, severe anemia and GI bleed. He does not exercise at home and I suspect he has been deteriorating for months prior to COVID due to his primary source of calories being alcohol. The lunchroom food service supervisor has diagnosed him with moderate malnutrition. His thought process has improved since admission and he is better able to participate in conversations and planning for what happens after rehab. I suspect he will have to go to a SNF. I have not seen a note from [facility] yet.....will D/W with the SW. This is a critical piece in his recovery. If he goes home and starts drinking again he will not recover. All lab was personally reviewed. Hemoglobin today is 8.9, up from 6.8 on 10/16/2021 following transfusion of 2 units of packed red blood cells. White blood cell count is now normal at 6.1. Platelet count is also normal at 165. Potassium is 4.2 and the sodium is within normal limits. The BUN is 16 with a creatinine of 0.75 and a BUN/creatinine ratio of 21.3. When he is adequately hydrated he is not dizzy but, he does not drink enough. Alert, making good eye contact, does not appear to be in any distress. L - CTA H- Increased resting HR which I suspect is due to dehydration and also due to dysautonomia. no edema Abd - soft, NT, ND, normal BS's no scleral icterus Impressions 1. orthostatic hypotension - suspect neurogenic. He also has urinary and fecal incontinence. He has had encephalopathy in the past......this may have been due to the traumatic ICH he had at the time. I suspect he likely still has encephalopathy and the most likely cause would be long standing alcoholism. Will offer him fluids throughout the day. Atenolol has been stopped. If orthostatics are still Positive for the next 2 days and he continues to complain of dizziness will add Midodrine. He is taking Neurontin 300 mg TID and I suspect this also contributes to confusion, fatigue, asthenia and gait abnormality. 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 Will decrease the dose to 200 mg TID to see if sx improve and if this will be adequate pain relief. Switching him to a TCA for neuropathy would likely not help because it too can cause OH, dizziness, weakness....... I suspect he will not be able to go home from rehab and he will need to go to an ECF. He is very deconditioned and his will not be able to provide enough help at home.........Getting him stronger will take weeks and if he starts to drink again there is not likely going to be any significant improvement going forward. He needs to get counselling for ETOH abuse and for depression and PTSD........and he needs to follow through. I think Chun and his family have poor insight into how sick he really is. Visit Charges Inpatient E&M: 38370 Subs Hosp L2
[2021-10-19 11:27] LABS: Magnesium 1.7 mg/dL (1.6-2.6)
[2021-10-19] MEDS: Ascorbic Acid 500 MG Tablet PO (12:45)
[2021-10-19] MEDS: Ferrous Sulfate 325 MG Tablet PO (12:45)
[2021-10-19] MEDS: Gabapentin 100 MG Capsule 200 MG PO ×2 (14:16→21:08)
[2021-10-19 18:58] VITALS: BP 131/80; PULSE 103; RESP 18; TEMP 36.8; O2SAT 96
[2021-10-19] MEDS: 0.9% Saline Lock 10 ML Syringe IV (21:07)
[2021-10-20 04:31] VITALS: BP 108/70; BP 110/76; BP 130/86; PULSE 113; PULSE 98
[2021-10-20] MEDS: Gabapentin 100 MG Capsule 200 MG PO ×3 (04:33→20:37)
[2021-10-20 07:47] VITALS: BP 130/86; PULSE 98; RESP 12; TEMP 36.6; O2SAT 94
[2021-10-20] MEDS: Potassium Chloride Oral Tablet 20 MEQ PO (08:30)
[2021-10-20] MEDS: Calcium Carb/Vitamin D 1 TABLET Tablet PO ×2 (08:30→16:14)
[2021-10-20] MEDS: Thiamine Hydrochloride 100 MG Tablet PO (08:30)
[2021-10-20] MEDS: Folic Acid 1 MG Tablet PO (08:30)
[2021-10-20] MEDS: Cefadroxil 500 MG CAPSULE PO ×2 (08:30→20:37)
[2021-10-20] MEDS: Allopurinol 100 MG Tablet 200 MG PO (08:31)
[2021-10-20] MEDS: Sertraline 100 MG Tablet PO (08:31)
[2021-10-20] MEDS: Pantoprazole Sodium 40 MG Tablet PO ×2 (08:31→20:37)
[2021-10-20] MEDS: Menthol/Lanolin/Calamine/Znox 113 GM Tube 1 APPLIC TOPICAL ×2 (08:36→20:37)
[2021-10-20] MEDS: Magnesium Chloride 64 MG Delay Rel.Tablet 128 MG PO ×2 (08:38→20:37)
--- NOTE | 2021-10-20 11:02 | PN_ITS ---
Progress Note Day #6/7 cefadroxil for Klebsiella pneumoniae urinary tract infection Afebrile VSS -he is still orthostatic today however he denies feeling lightheaded or dizzy and he does not lose his balance when he is ambulating with a four-wheel walker. Will DC the Atenolol....we have been holding it but he is better without the it. He has had no significant tachycardia. I continue to encourage good oral intake. Maintaining appropriate oxygen saturation on RA Oral intake is good Discussed with nursing - no problems that need addressed Reviewed the PT/OT/ST notes Medication list reviewed. Denies CP, SOB at rest, calf pain, N/V/Abd pain, constipation, diarrhea, calf pain, dysuria, lightheadedness, cephalgia. He is having pain in the bottoms of his feet but, it is tolerable and although it gets up to a 5 at times with ambulation it goes away when he sits down......some of the pain may be to plantar fasciitis since it starts with ambulation and goes away with rest. He is surprised he is so weak. His appetite is not the greatest and he is not eating enough protein......the loft worker head is addressing this and providing supplements. Physical Exam Const alert and no apparent distress Constitutional Narrative: he is eating lunch but, not eating much. General Appearance: cooperative, comfortable and well kempt Eyes PERRL, EOMs intact bilaterally, conjunctivae normal and no scleral icterus Resp normal respiratory effort and clear to auscultation bilaterally Effort and Inspection: able to speak in complete sentences Cardio regular rate, regular rhythm and no gallops GI normal to inspection, nondistended, normoactive bowel sounds, soft to palpation and non-tender Extremity no calf tenderness and no pedal edema Neuro Neuro Narrative: Much more alert and gaining new insight into why he is this debilitated. He can stay focused when I am talking with him now and he is engaged. His goal is to get stronger and go home. We discussed that he will likely not be strong enough to go home and be safe at his DC from rehab and that he will likely need to go to an SNF. He will think about this and consider where he would like to go......he would like to stay here because the care is so good and he sees that he is making progress but, I explained it is the insurance company that decides how long he can stay here and not me. Psych cooperative, denies homicidal ideation and denies suicidal ideation Appearance: grossly normal Attitude: calm and engaged Activity / Motor Behavior: appropriate eye contact Speech: normal speech Mood & Affect: blunted affect; Negative for apathetic or anxious Attention / Concentration: attention grossly intact Assessment & Plan Assessment/Plan (1) Autonomic neuropathy: (2) Orthostatic hypotension: (3) Urinary tract infection after immobility: (4) Urinary incontinence: (5) Fecal incontinence: (6) Obstructive sleep apnea: (7) Debility: (8) Cognitive dysfunction: (9) Pancytopenia: (10) Multiple myeloma: (11) Alcoholism: (12) Depression: QUALIFIERS: Depression Type: unspecified Qualified Code(s): F32.9 - Major depressive disorder, single episode, unspecified PLAN: 1. He is tolerating the decrease in the GAbapentin dose without any increase in the pain in his feet. 2. the leukopenia and the thrombocytopenia have resolved.....I suspect the 300 mg of Allopurinol was contributing to this. He was in remission from MM in August. Should have a UA checked in 3 weeks. Would decrease to 100 mg daily IF the UA is < 4 at the next check. 3. Add Remeron at HS to hopefully boost the appetite. Remeron can cause pancytopenia but the incidence is <1% and will will be monitoring the CBC. 4. Recheck cbc and BMP and mag on Monday. 5. Consider restarting A NOAC since he has a hx of DVT and he has MM if the HGB is stable next Monday. 6. Plan follow up with [facility] post DC - Visit Charges Inpatient E&M: 34608 Subs Hosp L2
[2021-10-20] MEDS: Ferrous Sulfate 325 MG Tablet PO (12:09)
[2021-10-20] MEDS: Ascorbic Acid 500 MG Tablet PO (12:09)
[2021-10-20 19:02] VITALS: BP 155/92; PULSE 107; RESP 16; TEMP 36.1; O2SAT 97
[2021-10-20] MEDS: Senna/Docusate Sodium 1 Tablet 2 TABLET PO (20:36)
[2021-10-20] MEDS: Mirtazapine 15 MG Tablet PO (20:37)
[2021-10-20] MEDS: 0.9% Saline Lock 10 ML Syringe IV (21:53)
[2021-10-21] MEDS: Gabapentin 100 MG Capsule 200 MG PO ×3 (06:28→20:10)
[2021-10-21 06:32] VITALS: BP 121/50; BP 133/85; BP 143/79; PULSE 110; PULSE 114; PULSE 94
[2021-10-21] MEDS: Folic Acid 1 MG Tablet PO (08:14)
[2021-10-21] MEDS: Potassium Chloride Oral Tablet 20 MEQ PO (08:14)
[2021-10-21] MEDS: Calcium Carb/Vitamin D 1 TABLET Tablet PO ×2 (08:14→17:03)
[2021-10-21 08:18] VITALS: BP 145/79; PULSE 98; RESP 14; TEMP 36.2; O2SAT 100
--- NOTE | 2021-10-21 10:02 | PCM.PN.BLA ---
Progress Note Chun was seen on TEAM rounds today. His was present in the room for rounds. A 03/10 cefadroxil for Klebsiella pneumoniae urinary tract infection - DC after today's dose Afebrile VSS heart rate went from 94 lying down to 114 sitting up today. Blood pressure lying down was 143/79 lying down and 121/50 standing. He denies dizziness/lightheadedness/nausea/diaphoresis. Maintaining appropriate oxygen saturation on RA Oral intake is very good now. Still incontinent of urine but urine output has been good No fecal incontinence reported Discussed with nursing - no problems that need addressed Reviewed the PT/OT/ST notes Medication list reviewed. Denies PEÑA, lightheadedness, CP, SOB at rest, N/V/abd pain. No dysuria. No calf pain and no swelling in the legs. We discussed that he has been doing well in therapy and getting stronger but, he is not yet strong enough to safely go home and his cognitive function and safety awareness still aren't where they need to be for him to go home. We discussed SNF and they have [facility] ([facility]) or [facility]. Physical Exam Const alert, oriented x3 and no apparent distress General Appearance: cooperative, well kempt and well developed Eyes conjunctivae normal and no scleral icterus Resp clear to auscultation bilaterally Cardio regular rate, regular rhythm and no gallops GI normal to inspection, nondistended, normoactive bowel sounds, soft to palpation and non-tender Extremity no calf tenderness and no pedal edema Skin Rashes: no rashes Psych cooperative Psych Narrative: motivated to get better denies cravings for alcohol Assessment & Plan Assessment/Plan (1) Orthostatic hypotension: (2) Urinary tract infection after immobility: (3) Urinary incontinence: (4) Debility: PLAN: 1. Check a CBC, BMP and a MAG on Monday 2. DC the Cefadroxil after the last dose today 3. Continue therapy - discuss DC plan on rounds today 4. He was seen by addiction medicine on 10/15 and he denied excessive drinking. He was given information and counselling and resources were offered. He is now being honest about how much he was drinking but, truthfully I do not think he is aware of how much and also not aware of the degree of decline he had. He has limited insight. 5. We discussed the importance of follow up at [facility] for alcoholism and for mental Health counselling. If he lets himself get this debility due to drinking again he may not make it. 6. Lab tomorrow and if the HGB is stable will restart anticoagulation. 6. Visit Charges Inpatient E&M: [id number] Subs Hosp L2
[2021-10-21] MEDS: Magnesium Chloride 64 MG Delay Rel.Tablet 128 MG PO ×2 (10:10→20:10)
[2021-10-21] MEDS: Thiamine Hydrochloride 100 MG Tablet PO (10:10)
[2021-10-21] MEDS: Pantoprazole Sodium 40 MG Tablet PO ×2 (10:10→20:10)
[2021-10-21] MEDS: Sertraline 100 MG Tablet PO (10:10)
[2021-10-21] MEDS: Cefadroxil 500 MG CAPSULE PO ×2 (10:10→20:09)
[2021-10-21] MEDS: Allopurinol 100 MG Tablet 200 MG PO (10:11)
[2021-10-21] MEDS: Menthol/Lanolin/Calamine/Znox 113 GM Tube 1 APPLIC TOPICAL ×2 (10:15→20:09)
[2021-10-21] MEDS: Ferrous Sulfate 325 MG Tablet PO (12:05)
[2021-10-21] MEDS: Ascorbic Acid 500 MG Tablet PO (12:05)
--- NOTE | 2021-10-21 13:59 | CASEMGMT ---
Addendum entered by Arianna Islas 10/22/21 13:27: [facility] now [facility] availability and can accept pt. Spoke with and very happy. [facility]. Addendum entered by Arianna Islas 10/22/21 13:17: would like referral to [facility]. Referral made. Addendum entered by Arianna Islas 10/21/21 14:40: [facility] does not have a bed. [facility] may not have a bed but will keep this worker updated. Contacted to get more options. to review list again and notify this worker of other options. Original Note: Social Work IDT met with patient and for Team meeting. Discussed patient's progress in PT/OT/ST and nursing. Pt making progress. Explained Medicare approved 13 days with DC 10/25. IDT recommending continued therapy in a SNF. Pt and agree pt is not ready to DC home yet and needs continued structured therapy. Provided SNF list with Medicare data. [facility] choice [facility], Second is [facility]. Referrals made. ordered sleep study for pt to have at DC of SNF/prior to DC home. Pt will remain on O2. SW to continue to follow. RIVAS Smith CARDIAC NURSE SPECIALIST
[2021-10-21 19:23] VITALS: BP 151/97; PULSE 100; RESP 16; TEMP 36.3; O2SAT 97
[2021-10-21] MEDS: Mirtazapine 15 MG Tablet PO (20:08)
[2021-10-21] MEDS: 0.9% Saline Lock 10 ML Syringe IV (20:13)
[2021-10-21 22:00] VITALS: PULSE 100; RESP 15
[2021-10-22] MEDS: Gabapentin 100 MG Capsule 200 MG PO ×3 (05:18→20:10)
[2021-10-22 07:41] VITALS: BP 155/80; PULSE 98; RESP 18; TEMP 36.8; O2SAT 97
[2021-10-22] MEDS: Folic Acid 1 MG Tablet PO (08:07)
[2021-10-22] MEDS: Magnesium Chloride 64 MG Delay Rel.Tablet 128 MG PO ×2 (08:08→20:10)
[2021-10-22] MEDS: Thiamine Hydrochloride 100 MG Tablet PO (08:08)
[2021-10-22] MEDS: Potassium Chloride Oral Tablet 20 MEQ PO (08:08)
[2021-10-22] MEDS: Pantoprazole Sodium 40 MG Tablet PO ×2 (08:08→20:09)
[2021-10-22] MEDS: Calcium Carb/Vitamin D 1 TABLET Tablet PO ×2 (08:08→16:52)
[2021-10-22] MEDS: Sertraline 100 MG Tablet PO (08:09)
[2021-10-22] MEDS: Allopurinol 100 MG Tablet 200 MG PO (08:09)
[2021-10-22] MEDS: Senna/Docusate Sodium 1 Tablet 2 TABLET PO (08:09)
[2021-10-22] MEDS: Menthol/Lanolin/Calamine/Znox 113 GM Tube 1 APPLIC TOPICAL ×2 (08:11→20:11)
[2021-10-22 10:00] VITALS: BP 119/83; BP 124/82; BP 135/79; PULSE 105; PULSE 116; PULSE 128
[2021-10-22] MEDS: Ascorbic Acid 500 MG Tablet PO (11:19)
[2021-10-22] MEDS: Ferrous Sulfate 325 MG Tablet PO (11:19)
[2021-10-22] MEDS: Acetaminophen 325 MG Tablet 650 MG PO ×2 (11:19→20:28)
--- NOTE | 2021-10-22 15:45 | NURSING ---
Dr. Truong aware of fall and Glory, mmd unit teacher aware. Neuro assessment WNL, VS WNL.
--- NOTE | 2021-10-22 16:12 | NURSING ---
family turned off bed alarm and allowed to walk to restroom without assistive devices or photography editor socks, found Pt on knees in restroom trying to get up . Pt reports he did not hit head and no injuries felt or redness seen, skin remained intact and pt denied pain. V/S WNL BP 142/80 Spo2 96% T 98.0 HR 102. Cleo PANIAGUA informed family and Pt to call for nursing staff when Pt needs assistance. Verbalized understanding.
[2021-10-22 18:54] VITALS: BP 137/80; PULSE 97; RESP 16; TEMP 37.1; O2SAT 96
[2021-10-22] MEDS: 0.9% Saline Lock 10 ML Syringe IV (18:54)
[2021-10-22] MEDS: Mirtazapine 15 MG Tablet PO (20:11)
[2021-10-22 20:20] VITALS: RESP 15
[2021-10-23] MEDS: Acetaminophen 325 MG Tablet 650 MG PO (04:52)
[2021-10-23] MEDS: Gabapentin 100 MG Capsule 200 MG PO ×3 (04:56→20:40)
[2021-10-23 07:15] VITALS: BP 114/86; PULSE 100; RESP 15; TEMP 35.9; O2SAT 94
[2021-10-23] MEDS: Pantoprazole Sodium 40 MG Tablet PO ×2 (08:28→20:39)
[2021-10-23] MEDS: Calcium Carb/Vitamin D 1 TABLET Tablet PO ×2 (08:28→16:47)
[2021-10-23] MEDS: Allopurinol 100 MG Tablet 200 MG PO (08:28)
[2021-10-23] MEDS: Folic Acid 1 MG Tablet PO (08:28)
[2021-10-23] MEDS: Thiamine Hydrochloride 100 MG Tablet PO (08:28)
[2021-10-23] MEDS: Magnesium Chloride 64 MG Delay Rel.Tablet 128 MG PO ×2 (08:28→20:39)
[2021-10-23] MEDS: Potassium Chloride Oral Tablet 20 MEQ PO (08:29)
[2021-10-23] MEDS: Sertraline 100 MG Tablet PO (08:30)
[2021-10-23] MEDS: Menthol/Lanolin/Calamine/Znox 113 GM Tube 1 APPLIC TOPICAL ×2 (08:36→20:40)
[2021-10-23 10:00] VITALS: BP 120/70; BP 122/80; BP 128/72; PULSE 105; PULSE 115; PULSE 90
[2021-10-23] MEDS: Ascorbic Acid 500 MG Tablet PO (12:11)
[2021-10-23] MEDS: Ferrous Sulfate 325 MG Tablet PO (12:11)
[2021-10-23] MEDS: 0.9% Saline Lock 10 ML Syringe IV (18:23)
--- NOTE | 2021-10-23 19:13 | NURSING ---
Patient pleasantly confused, no complaints of pain, doing well with therapy but still needs staff assist due to weakness to BLE.
[2021-10-23 19:34] VITALS: BP 146/88; PULSE 106; RESP 16; TEMP 37.1; O2SAT 96
[2021-10-23] MEDS: Mirtazapine 15 MG Tablet PO (20:29)
[2021-10-23 22:00] VITALS: PULSE 69; RESP 16
[2021-10-24] MEDS: Gabapentin 100 MG Capsule 200 MG PO ×3 (05:16→21:03)
[2021-10-24 07:29] VITALS: BP 147/78; PULSE 98; RESP 18; TEMP 36.8; O2SAT 97
[2021-10-24] MEDS: Potassium Chloride Oral Tablet 20 MEQ PO (07:47)
[2021-10-24] MEDS: Magnesium Chloride 64 MG Delay Rel.Tablet 128 MG PO ×2 (07:47→21:03)
[2021-10-24] MEDS: Calcium Carb/Vitamin D 1 TABLET Tablet PO ×2 (07:48→15:27)
[2021-10-24] MEDS: Folic Acid 1 MG Tablet PO (07:48)
[2021-10-24] MEDS: Sertraline 100 MG Tablet PO (07:48)
[2021-10-24] MEDS: Thiamine Hydrochloride 100 MG Tablet PO (07:48)
[2021-10-24] MEDS: Pantoprazole Sodium 40 MG Tablet PO ×2 (07:48→21:03)
[2021-10-24] MEDS: Allopurinol 100 MG Tablet 200 MG PO (07:50)
[2021-10-24] MEDS: Menthol/Lanolin/Calamine/Znox 113 GM Tube 1 APPLIC TOPICAL ×2 (09:58→21:00)
[2021-10-24 10:00] VITALS: BP 120/76; BP 126/80; BP 132/72; PULSE 100; PULSE 102; PULSE 95
[2021-10-24] MEDS: Ferrous Sulfate 325 MG Tablet PO (12:16)
[2021-10-24] MEDS: Ascorbic Acid 500 MG Tablet PO (12:16)
[2021-10-24] MEDS: 0.9% Saline Lock 10 ML Syringe IV (15:25)
[2021-10-24] MEDS: Acetaminophen 325 MG Tablet 650 MG PO (15:30)
--- NOTE | 2021-10-24 18:52 | NURSING ---
Refused to get OOB today other than using the bathroom. Family in to visit.
[2021-10-24 19:49] VITALS: BP 148/90; PULSE 107; RESP 15; TEMP 36.4; O2SAT 94
[2021-10-24] MEDS: Mirtazapine 15 MG Tablet PO (21:03)
[2021-10-25 05:48] LABS: Hemoglobin 9.4 g/dL (13.0-16.5); Mean Corp Hgb Conc 32.4 g/dL (32-36); Mean Corpuscular Hgb 29.7 pg (27.0-32.0); Mean Corpuscular Volume 91.5 fL (80-94); Mean Platelet Vol. 9.2 fl (6.2-12.0); Platelet Count 202 K/mm3 (150-450); RBC Distribution Width CV 15.6 % (11.6-14.6); RBC Distribution Width SD 52.6 fl (35.1-43.9); Red Blood Count 3.17 M/mm3 (4.6-6.2); White Blood Count 6.6 K/mm3 (4.4-11.0)
[2021-10-25] MEDS: Gabapentin 100 MG Capsule 200 MG PO ×2 (05:54→13:14)
[2021-10-25 06:09] LABS: Anion Gap 6 (5-15); BUN 21 mg/dL (7-18); BUN/Creat Ratio 26.9 RATIO (10-20); Calcium,Total 8.7 mg/dL (8.5-10.1); Chloride 104 mmol/L (98-107); Creatinine, Serum 0.78 mg/dL (0.70-1.30); EST Glomerular Filtration Rate 105 mL/min (>60); Est Glom Filt Rate - Afr Amer 127 mL/min (>60); Estimated Creatinine Clearance 76.52 ml/min; Glucose 110 mg/dL (74-106); Magnesium 1.6 mg/dL (1.6-2.6); Sodium Level 137 mmol/L (136-145)
[2021-10-25 07:30] VITALS: BP 160/90; PULSE 100; RESP 16; TEMP 37; O2SAT 95
[2021-10-25 07:31] VITALS: BP 150/90; BP 152/88; BP 160/90; PULSE 100; PULSE 90; PULSE 95
[2021-10-25] MEDS: Calcium Carb/Vitamin D 1 TABLET Tablet PO (09:28)
[2021-10-25] MEDS: Folic Acid 1 MG Tablet PO (09:29)
[2021-10-25] MEDS: Allopurinol 100 MG Tablet 200 MG PO (09:29)
[2021-10-25] MEDS: Magnesium Chloride 64 MG Delay Rel.Tablet 128 MG PO ×2 (09:29→13:14)
[2021-10-25] MEDS: Sertraline 100 MG Tablet PO (09:29)
[2021-10-25] MEDS: Thiamine Hydrochloride 100 MG Tablet PO (09:29)
[2021-10-25] MEDS: Pantoprazole Sodium 40 MG Tablet PO (09:29)
--- NOTE | 2021-10-25 09:32 | PN_ITS ---
Subjective Subjective Afebrile VSS - orthostatics are negative today. Maintaining appropriate oxygen saturation on RA Oral intake is erratic but for the most part much better than it was at admission. Still incontinent of urine. Discussed with nursing - no problems that need addressed Reviewed the PT/OT/ST notes. He has ambulated up to 140 ft on various surfaces at CGA/min A. He has done 3 4 steps with 2 HR's at CGA + 1 SBA. Medication list reviewed. All lab was personally reviewed. White blood cell count today is normal at 6.6. The hemoglobin is stable at 9.4 and actually improving. Platelets are normal and are 202,000 today. BMP looks good today however the BUN is 21 and the creatinine is 0.78. Magnesium is borderline low at 1.6 and he is getting magnesium chloride 128 mg p.o. twice daily. Still needing moderate assistance for toilet transfer and toileting. Has been able to stand at close standby assist with unilateral upper extremity support for up to 8 minutes. He had another fall over the weekend. His unhooked the alarm and allowed to ambulate to the with only his TANYA hose on and he fell. No injuries. He also fell last week trying to bend over the side of the bed to pick something u p. Chun and his have both been told that he is not allowed to get out of bed without calling for assistance. Objective Data Objective Data Vital Signs: Vital Signs Temp Pulse Resp BP Pulse Ox 98.6 F 100 16 160/90 H 95 10/25/21 07:30 10/25/21 07:31 10/25/21 07:30 10/25/21 07:31 10/25/21 07:30 Oxygen Flow Rate (L/min) 2 Oxygen Delivery Method Room Air Weight: 171 lb 1.259 oz Body Mass Index (BMI) 24.7 Intake & Output: Intake and Output for Last 24 Hours 10/23/21 10/24/21 10/25/21 23:59 23:59 23:59 Intake Total 1000 / 1100 1400 / 1400 Output Total 400 / 400 Balance 600 / 700 1400 / 1400 Medical Nutrition Assessment Dietitian: Malnutrition Criteria Met Start: 10/20/21 12:46 Freq: Status: Active Protocol: Document 10/20/21 12:46 AG (Rec: 10/20/21 12:46 AG [id number]) Nutrition Malnutrition Evidence of Malnutrition Exists Yes Malnutrition (moderate): Acute Illness/Injury Evidenced By Suboptimal Energy Intake ( Moderate),Weight Loss (Severe) Clinical Problem Acute Disease or Injury Related Malnutrition Etiology acute on suspected chronic moderate malnutrition r/t inadequate energy intake w/ hx of excessive alcohol consumption Signs/Symptoms as evidenced by unintentional wt loss of 10.6#/5.7% x 1 week , estimated PO intake meeting >75% of estimated energy needs x 1 week Status Active Problem Unintended Weight Loss Etiology related to inadequate oral intake/ETOH abuse Signs/Symptoms as evidenced by ~3% wt loss x 1-2 months; 10.6#/5.7% wt loss x 1 week Status Active Problem Recommendation Dietitian Recommendations/Changes Continue Sodium-Restricted diet as ordered; 240ml strawberry ensure enlive TID w / meals Lab / Micro Data Result Diagrams: 10/25/21 05:06 10/25/21 05:06 Labs: Laboratory Results - last 24 hr 10/25/21 05:06: WBC 6.6, RBC 3.17 L, Hgb 9.4 L, Hct 29.0 L, MCV 91.5, MCH 29.7, MCHC 32.4, RDW Std Deviation 52.6 H, RDW Coeff of [place] 15.6 H, Plt Count 202, MPV 9.2 10/25/21 05:06: Sodium 137, Potassium 4.0, Chloride 104, Carbon Dioxide 27.0, Anion Gap 6, BUN 21 H, Creatinine 0.78, Estim Creat Clear Calc 76.52, Est GFR (MDRD) Af Amer 127, Est GFR (MDRD) Non-Af 105, BUN/Creatinine Ratio 26.9 H, Glucose 110 H, Calcium 8.7, Magnesium 1.6 Micro: Microbiology 10/24/21 12:40 Nasal Secretion SARS-CoV-2 Antigen (Rapid) - Final 10/14/21 10:43 Urine, Catheterized Urine Culture - Final Klebsiella pneumoniae sp pneum
[2021-10-25] MEDS: Potassium Chloride Oral Tablet 20 MEQ PO (09:33)
[2021-10-25] MEDS: Menthol/Lanolin/Calamine/Znox 113 GM Tube 1 APPLIC TOPICAL (09:35)
[2021-10-25 09:41] VITALS: BP 150/90; BP 152/88; BP 160/90; PULSE 100; PULSE 90; PULSE 95
--- NOTE | 2021-10-25 10:47 | PCM.TXEXTCAR ---
Diet 10/12/21 17:40 Diet: Sodium Restricted (MOD) Type of Dietary Supplement:: Ensure Enlive Is pt able to select menu?: Yes Diet Comments: 2 GM sodium diet; 240ml strawberry ensure enlive w/ all meals Tube Feed: N/A Routine Orders/Code Status Enema Type: Fleetz Enema Frequency: Daily PRN Suppository Type: Dulcolax 10mg Suppository Frequency: Daily PRN O2 Liters per Minute: 2 liters anytime he is sleeping. He has known sleep apnea. O2 Frequency: while sleeping Keep PO Greater than or Equal to (%): 90 Routine Lab Work: CBC (Weekly), BMP (Weekly) and - (mag and phos in 1 week) Code Status: Full Code Wound(s) rt leg: Wound Type: Abrasion buttock: Wound Type: Pressure Injury Therapies Weight Bearing: Full weight bearing Physical Therapy: Eval and Treat Occupational Therapy: Eval and Treat Speech Therapy: Eval and Treat Problem/Diagnosis (1) Debility: Status: Acute Comment: Due to COVID 19 infection, alcoholism, malnutrition, Multiple Myeloma, untreated GASTON. (2) History of COVID-19: Status: Acute Comment: The end of September 2021. Was at [facility] and then transferred to [place] and finally to [facility] for a GI bleed. (3) GI bleed: Status: Acute Comment: October 2021 due to angiodysplasia of the stomach and the colon. (4) Angiodysplasia of stomach: Status: Inactive Comment: Treated by Dr. Daniel (5) Angiodysplasia of colon: Status: Inactive Comment: Treated by Dr. Daniel (6) Acute on chronic anemia: Status: Chronic Comment: Transfused with 2 units PRBC's while in rehab. Placed on Iron + Vitamin C and HGB is now increasing. (7) Alcoholism: Status: Chronic Comment: senior care. I suspect the cognitive dysfunction and the autonomic neuropathy are related to the LT effects of Alcohol excess. Has had an EEG in the past with encephalopathy. (8) Multiple myeloma: Status: Chronic Comment: Will follow up with Dr. Cramer post [facility]. He was in remission in August 2021. (9) Malnutrition: Status: Acute Comment: Was not eating prior to coming to rehab but, he is eating much better and he is on Remeron in addition to Zoloft for breakthrough depression. (10) Urinary tract infection after immobility: Status: Resolved Comment: Due to Klebsiella pneumonia. Resolved. (11) Hypomagnesemia: Status: Resolved (12) Hypophosphatemia: Status: Resolved (13) Autonomic neuropathy: Status: Chronic (14) Orthostatic hypotension: Status: Chronic Comment: Suspect neurogenic orthostasis. BP is a little high off the antihypertensive medications but, he is no longer dizzy and passing out. Would recommend a tilt table test in the future. (15) Urinary incontinence: Status: Acute (16) Depression: Status: Chronic (17) Colon polyps: Status: Inactive Comment: Repeat Colonoscopy in [address] Daniel. (18) Hypoalbuminemia: Status: Acute (19) Peripheral edema: Status: Resolved (20) Pulmonary hypertension: Status: Acute Comment: Right ventricular systolic pressure was estimated at 44 in May 2021. More likely than not due to longstanding untreated GASTON. (21) Pancytopenia: Status: Resolved Comment: Everything started improving when the Allopurinol dose was decreased to 200 mg daily. The goal for UA in gout is < 6. If tophaceous gout then less than 5. His Uric acid was 2.9 and there is no good reason to keep it that low. will need a repeat uric acid in 3 weeks. (22) Olecranon bursitis of right elbow: Status: Resolved (23) Cognitive dysfunction: Status: Chronic Comment: Multifactorial. Untreated GASTON, LT alcoholism, malnutrition, ICH due to a fall. (24) Obstructive sleep apnea: Status: Chronic Comment: Has not worn CPAP. We have been keeping him on 2 LPM any time he is sleeping. (25) Peripheral neuropathy: Status: Chronic Comment: Due to chemotherapy for the multiple myeloma.......alcohol abuse also likely contributes to neuropathy. (26) PTSD (post-traumatic stress disorder): Status: Chronic Comment: Has never had psychotherapy and should follow up at [facility] following DC for Mental Health counselling and for alcoholism. They met with him in the rehab unit. (27) Hyponatremia: Status: Resolved Comment: Resolved with hydration. (28) Hyperuricemia: Status: Chronic Comment: Colchicine decreased to 200 mg daily due to pancytopenia. The acute gout in the R olecranon has resolved and no further gouty attacks with the decrease in the Allopurinol dose. (29) Essential (primary) hypertension: Status: Chronic Comment: Must tolerate mid HTN when lying down because of the marked drops in BP with standing, timothy for > 5 minutes. I recommended he discuss a tilt table test with his PCP. (30) Hematuria: Status: Resolved Comment: Resolved with treating the UTI due to Klebsiella pneumonia. (31) Prostatic enlargement: Status: Inactive Comment: Post void residuals have been less than 200. (32) Lumbar spinal stenosis: Status: Inactive (33) Fecal incontinence: Status: Resolved Allergies/Procedures Done in Hospital Allergies No Known Allergies Allergy (Verified 10/09/21 10:50) Procedures: Blood transfusion (2 units) Type of Care/Length of Stay Estimated LOS: Convalescent Care Less Than 30 days Type of Care Needed: Skilled Rehab Potential: Fair Prognosis: Fair Additional Orders/Day of Discharge Additional Orders: He has fallen a few times while on rehab. His , although she has been told not to, disconnects the alarm and allows him to get up by himself and ambulate to the . He has poor safety awareness. Needs to follow up at [facility] following DC from TCU for alcoholism and for counselling for PTSD and depression. Needs to follow up with Dr. Cramer for Multiple Myeloma. H&P will serve as current which was dated: 10/12/21 Day of Discharge: 10/25/21 Dietary and Speech Recommendations Dietitian Recommendations/Changes: Continue Sodium-Restricted diet as ordered; 240ml strawberry ensure enlive TID w/ meals Follow Up Care Please follow up with your Primary Care Physician in: following DC from TCU Please Follow Up With: kodi cramer When: following discharge from TCU Please Follow Up With: [facility] When: ARGEN[facility] following DC from TCU Discharge Plan Admission Admit Date/Time: 10/12/21 14:20 Primary Reason for Your Visit: debiity due to recent COVID 19 infection and GI bleed requiring transfusion Attending Provider: Mary Ann Truong Primary Care Provider: Onur Garcia Consulting Providers: Anjum Daniel Discharge Orders/Prescriptions Prescriptions: New acetaminophen [Tylenol] 325 mg Tablet 650 mg PO Q6H PRN PRN (Reason: PAIN 1-10) Qty: 0 RF: 0 sennosides-docusate sodium [Stool Softener-Stimulant Laxat] 8.6-50 mg Tablet 2 tab PO BID Qty: 0 RF: 0 allopurinol 100 mg Tablet 200 mg PO DAILY Qty: 0 RF: 0 potassium chloride [Klor-Con M20] 20 mEq Tablet,Er Particles/Crystals 20 meq PO DAILYCM Qty: 0 RF: 0 magnesium hydroxide 400 mg/5 mL Suspension 30 ml PO .PRN X 1 PRN (Reason: Constipation) Qty: 0 RF: 0 bisacodyl 10 mg Suppository 10 mg TX .PRN X 1 PRN (Reason: Constipation) Qty: 0 RF: 0 mirtazapine 15 mg Tablet 15 mg PO 2000 Qty: 0 RF: 0 gabapentin 100 mg Capsule 200 mg PO TID 30 Days Qty: 180 RF: 0 calcium carbonate-vitamin D3 [Oyster Shell Calcium-Vit D3] 500 mg-5 mcg (200 unit) Tablet 1 tab PO BIDCM Qty: 0 RF: 0 heparin, porcine (PF) 10 unit/mL Syringe 50 unit IV UD PRN (Reason: Port-a-Cath (VAD)Heparin Flush) Qty: 60 RF: 0 magnesium chloride [Mag 64] 64 mg Tablet,Delayed Release (Dr/Ec) 128 mg PO TID Qty: 0 RF: 0 menthol-zinc oxide [Calmoseptine] 0.44-20.6 % Ointment 1 applic topical BID Qty: 0 RF: 0 Emollient Combination No.72 [Eucerin Intensive Repair] 1 applic topical QHS Qty: 0 RF: 0 Eliquis 5 mg tablet 5 mg PO BID Qty: 1 RF: 0 Continued ferrous sulfate 325 MG tablet 325 mg PO 1200 RF: 0 sertraline 100 mg Tablet 100 mg PO DAILY RF: 0 folic acid 1 mg Tablet 1 mg PO DAILY RF: 0 thiamine HCl (vitamin B1) 50 mg Tablet 100 mg PO DAILY RF: 0 ascorbic acid (vitamin C) [Vitamin C] 500 mg Tablet 500 mg PO 1200 RF: 0 pantoprazole 40 mg tablet,delayed release (DR/EC) 40 mg PO BID RF: 0 Discontinued allopurinol 300 mg tablet 300 mg PO DAILY RF: 0 calcium carbonate-vitamin D3 [Calcium 500 + D] 500 mg(1,250mg) -400 unit Tablet 1 tab PO BID RF: 0 gabapentin 100 MG capsule 300 mg PO TID RF: 0 atenolol 25 MG tablet 12.5 mg PO QHS RF: 0 Referrals / Follow Up: Onur Garcia MD [Primary Care Provider] - Kodi Cramer MD [STAFF PHYSICIAN] - 10/27/21 3:30 pm Disposition Disposition (needs filled in before D/C Order can be placed): [facility]
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
[2021-10-25] MEDS: Ascorbic Acid 500 MG Tablet PO (12:07)
[2021-10-25] MEDS: Ferrous Sulfate 325 MG Tablet PO (12:07)
--- NOTE | 2021-10-25 14:10 | NURSING ---
Report given to TCU and left msg for that patient is going to room 4.
== END 2021-10-25 14:16 | disposition skilled nursing facility (03) | DRG 378 ==
PROVIDERS: Admitting Provider Internal Medicine; PCP Family Medicine; Visit Provider Internal Medicine
DX: K55.21 Angiodysplasia of colon with hemorrhage (principal); N39.0 Urinary tract infection, site not specified; D61.818 Other pancytopenia; C90.01 Multiple myeloma in remission; I27.20 Pulmonary hypertension, unspecified; E88.09 Other disorders of plasma-protein metabolism, not elsewhere classified; F10.20 Alcohol dependence, uncomplicated; E83.42 Hypomagnesemia; K21.00 Gastro-esophageal reflux disease with esophagitis, without bleeding; I48.91 Unspecified atrial fibrillation; G62.9 Polyneuropathy, unspecified; M48.061 Spinal stenosis, lumbar region without neurogenic claudication; M70.21 Olecranon bursitis, right elbow; I10 Essential (primary) hypertension; R15.9 Full incontinence of feces; I95.1 Orthostatic hypotension; G47.33 Obstructive sleep apnea (adult) (pediatric); N40.1 Benign prostatic hyperplasia with lower urinary tract symptoms; B96.1 Klebsiella pneumoniae [K. pneumoniae] as the cause of diseases classified elsewhere; K31.811 Angiodysplasia of stomach and duodenum with bleeding; F32.A Depression, unspecified; R32 Unspecified urinary incontinence; R33.9 Retention of urine, unspecified; F43.10 Post-traumatic stress disorder, unspecified; Z79.899 Other long term (current) drug therapy; Z87.820 Personal history of traumatic brain injury; Z86.16 Personal history of COVID-19; Z86.718 Personal history of other venous thrombosis and embolism; Z87.891 Personal history of nicotine dependence
CPT/HCPCS: 36415; 80048; 81001; 82533; 82728; 83540; 83550; 83735; 84100; 84550; 85025; 85027; 86850; 86900; 86901; 86902; 86920; 86922; 87077; 87086; 87088; 87186; 87426; 92507; 92523; 92526; 92611; 94762; 96125; 97110; 97112; 97116; 97129; 97130; 97162; 97166; 97530; 97535; 97802; 97803; J7040; J7050; P9016; A4216; J1940

== ENCOUNTER 2021-10-25 14:17 | Inpatient (IN) | payer MEDICARE, BC, SELFPAY ==
[2021-10-25 14:24] VITALS: BP 154/80; PULSE 107; RESP 17; TEMP 36.8; O2SAT 95; BMI 23.8
[2021-10-25 16:31] VITALS: O2SAT 95
[2021-10-25] MEDS: Pantoprazole Sodium 40 MG Tablet PO (16:54)
[2021-10-25] MEDS: APIXABAN 5 MG TABLET PO (16:54)
[2021-10-25] MEDS: Senna/Docusate Sodium 1 Tablet 2 TABLET PO (16:54)
[2021-10-25] MEDS: Calcium Carb/Vitamin D 1 TABLET Tablet PO (16:54)
[2021-10-25] MEDS: Menthol/Lanolin/Calamine/Znox 113 GM Tube 1 APPLIC TOPICAL (16:55)
--- NOTE | 2021-10-25 18:55 | PCM.HP.STD ---
HPI - General General Date of Admission: 10/25/21 HPI Narrative 10/08/2021 NIDIA HICKMAN, is a 71 Male with below past medical history presented to [facility] emergency department with Hemoglobin 6.7, Hemoccult positive. 10/08/2021 Admit to [facility]. No transfusion needed. 10/11/2021 EGD showed reflux esophagitis, single bleeding angiodysplastic lesion treated with argon plasma coagulation. Colonoscopy removed 2 polyps, single bleeding colon angiodysplastic lesion treated with argon plasma coagulation. PT/OT recommended rehabilitation. Patient was sober, but started drinking again. PT/OT/ST. Pantoprazole 40mg bid for GI bleed, recommend alcohol cessation. 10/12/[address] Brunson gave chemotherapy for multiple myeloma, stopped end of September due to covid infection. 10/13/2021 Dr. Brunson following multiple myeloma, iron deficiency anemia. 10/14/2021 Prescribed potassium chloride 20meq daily. 10/15/2021 Hold atenolol for orthostatic hypotension. Cefadroxil 500mg bid for urinary tract infection, urine culture pending. 10/17/2021 Transfuse 2 units PBC for anemia. IV magnesium, Magnesium 128mg po bid for hypomagnesemia. Sleep study on discharge for obstructive sleep apnea, oxygen while sleeping. 180 on discharge for alcohol abuse. 10/18/2021 Hold Atenolol, Hold Aldactone, TANYA hose for orthostatic hypotension. Cefadroxil x 7 days for Klebsiella Pneumoniae urinary tract infection. 10/19/2021 Lower gabapentin to 200mg tid for dizziness. 10/20/2021 Allopurinol lowered from 300mg daily to 200mg daily for leukopenic thrombocytopenia. 10/21/2021 Finished Cefadroxil for K. Pneumoniae urinary tract infection. Restart DOAC if hemoglobin stable. 10/25/2021 Admit to TCU with debility, here for rehabilitation, strengthening, prior to discharge home with . [facility] Medical History Acute deep vein thrombosis (DVT) of left lower extremity Anemia Angiodysplasia of colon Angiodysplasia of stomach Autonomic neuropathy BPH with obstruction/lower urinary tract symptoms Closed L1 vertebral fracture Closed L2 vertebral fracture Closed T11 fracture Cognitive dysfunction Colon polyps Dysphagia Essential (primary) hypertension ETOH abuse Fatty liver History of COVID-19 History of hepatitis C Idiopathic gout Iron deficiency Lumbar spinal stenosis Lytic lesion of bone on x-ray Multiple myeloma not having achieved remission Obstructive sleep apnea Orthostatic hypotension Osteopenia determined by x-ray Pancytopenia Prostatic enlargement Syncope Thrombocytopenia Thyroid nodule incidentally noted on imaging study Torn ligament Urinary (tract) obstruction Home Medications ferrous sulfate 325 mg PO 1200 06/18/20 [History Last Taken Unknown] folic acid 1 mg PO DAILY 10/09/21 [History Last Taken Unknown] sertraline 100 mg PO DAILY 10/09/21 [History Last Taken Unknown] thiamine HCl (vitamin B1) 100 mg PO DAILY 10/09/21 [History Last Taken Unknown] ascorbic acid (vitamin C) [Vitamin C] 500 mg PO 1200 10/12/21 [History Last Taken Unknown] pantoprazole 40 mg PO BID 10/12/21 [History Last Taken Unknown] Emollient Combination No.72 [Eucerin Intensive Repair] 1 applic TOPICAL QHS 10/25/21 [History Last Taken Unknown] acetaminophen [Tylenol] 650 mg PO Q6H PRN PRN #0 tab 10/25/21 [Rx Last Taken Unknown] allopurinol 200 mg PO DAILY 10/25/21 [History Last Taken Unknown] apixaban [Eliquis] 5 mg PO BID 10/25/21 [History Last Taken Unknown] bisacodyl 10 mg SC .PRN X 1 PRN #0 ea 10/25/21 [Rx Last Taken Unknown] calcium carbonate-vitamin D3 [Oyster Shell Calcium-Vit D3] 1 tab PO BIDCM 10/25/21 [History Last Taken Unknown] gabapentin 200 mg PO TID 10/25/21 [History Last Taken Unknown] heparin, porcine (PF) 50 unit IV UD PRN #60 ml 10/25/21 [Rx Last Taken Unknown] magnesium chloride [Mag 64] 128 mg PO TID 10/25/21 [History Last Taken Unknown] magnesium hydroxide 30 ml PO .PRN X 1 PRN #0 ml 10/25/21 [Rx Last Taken Unknown] menthol-zinc oxide [Calmoseptine] 1 applic TOPICAL BID 10/25/21 [History Last Taken Unknown] mirtazapine 15 mg PO 199910/25/21 [History Last Taken Unknown] potassium chloride [Klor-Con M20] 20 meq PO DAILYCM 10/25/21 [History Last Taken Unknown] sennosides-docusate sodium [Stool Softener-Stimulant Laxat] 2 tab PO BID 10/25/21 [History Last Taken Unknown] Allergy/AdvReac Type Severity Reaction Status Date / Time No Known Allergies Allergy Verified 10/09/21 10:50 Family History Mother Heart disease Hypertension Father Hypertension Surgical History History of bunionectomy History of transurethral resection of prostate Social History (Updated 10/25/21 @ 19:[address] Ezequiel Tam MD) household members: spouse Smoking Status: Never smoker alcohol intake: current alcohol intake frequency: 3 or more drinks per day substance use type: does not use ROS Constitutional Constitutional: Denies chills, fever(s) or weight gain ENT HEENT: Denies headache(s), nasal congestion or nasal discharge Cardiovascular Cardiovascular: Denies chest pain or palpitations Respiratory/Chest Respiratory/Chest: Denies cough, excessive phlegm production or shortness of breath with exertion Gastrointestinal Gastrointestinal: Denies abdominal pain, nausea or vomiting Genitourinary Genitourinary: Denies dysuria Musculoskeletal Musculoskeletal: Denies joint pain or joint swelling Integumentary Integumentary: Denies rash or wounds Neurologic Neurologic: Denies focal weakness, numbness or tingling Psychiatric Psychiatric: Denies anxiety, auditory hallucinations, depression, homicidal ideation or suicidal ideation Vital Signs Vital Signs Vital Signs: 10/25/21 14:24 10/25/21 16:31 Temperature 98.2 F Temperature Source Oral Pulse Rate 107 H Pulse Rhythm Regular Pulse Strength Normal (2+) Respiratory Rate 17 Respiratory Effort Normal Non-Labored Respiratory Depth Normal Respiratory Pattern Normal Blood Pressure 154/80 H Blood Pressure Mean 104 Blood Pressure Source Monitor Blood Pressure Position Semi-Fowlers Pulse Ox 95 95 Oxygen Delivery Method Room Air Room Air Weight Weight: 80.104 kg Body Mass Index (BMI) 23.8 Physical Exam Const alert and oriented x3 General Appearance: cooperative HEENT normocephalic Eyes PERRL and EOMs intact bilaterally Neck supple, no JVD and no carotid bruits Resp normal respiratory effort, normal air movement and clear to auscultation bilaterally Cardio regular rate and regular rhythm GI normal to inspection, nondistended, normoactive bowel sounds, non-tender and non-distended Extremity normal capillary refill General Extremity: Negative for edema Skin no rashes or lesions noted General Skin Exam: no breakdown Psych affect normal Appearance: appropriate Assessment & Plan Assessment/Plan (1) Debility: (2) Acute on chronic anemia: (3) Upper gastrointestinal bleeding: (4) Orthostatic hypotension: (5) Urinary tract infection: (6) Iron deficiency anemia: (7) Gout: (8) Neuropathy: (9) Hypertension: (10) Alcohol abuse: (11) Depression: (12) Gastroesophageal reflux disease: (13) Obstructive sleep apnea: (14) Subarachnoid hemorrhage: (15) IVH (intraventricular hemorrhage): (16) ICH (intracerebral hemorrhage): (17) Fatty liver: (18) Hepatitis C: (19) Multiple myeloma: (20) Chronic deep vein thrombosis (DVT): PLAN: 71 year old male with below past medical history hospitalized for anemia secondary to gastrointestinal bleeding, admitted to [facility], now admitted to TCU with debility, here for rehabilitation, strengthening, prior to discharge home with . Debility - PT/OT. Pain - Tylenol 650mg q6h prn pain (1-10). Bowel - Senna/colace 2 tablets bid, Dulcolax 10mg pr x 1 prn, MOM 30ml po x 1 prn. Adult immunization - Administer prevnar 20, fluzone, covid19 vaccine as appropriate. DVT prophylaxis - Not necessary, on Eliquis. Gout - Allopurinol 200mg daily. Recurrent DVT - Eliquis 5mg bid. Vitamin C deficiency - Vitamin C 500mg daily. Calcium deficiency - Calcium D twice daily. Skin irritation - Eucerin topical qhs, Calmoseptine topical bid. Iron deficiency anemia - Ferrous sulfate 325mg daily. Alcohol abuse - Folic acid 1mg daily, 180 counseling on discharge. Neuropathy - Gabapentin 200mg tid. Hypomagnesemia - Magnesium chloride 128mg po tid. Insomnia/appetite loss - Mirtazapine 15mg qhs, stable chronic ocean transportation intermediary use, GDR not recommended. GERD - Pantoprazole 40mg bid. Depression - Sertraline 100mg daily, stable chronic half-way use, GDR not recommended. Obstructive sleep apnea - sleep study on discharge. Multiple Myeloma - Dr. Brunson.
[2021-10-25] MEDS: Mirtazapine 15 MG Tablet PO (20:18)
[2021-10-25] MEDS: Gabapentin 100 MG Capsule 200 MG PO (21:26)
[2021-10-25] MEDS: Magnesium Chloride 64 MG Delay Rel.Tablet 128 MG PO (21:27)
[2021-10-26] MEDS: Senna/Docusate Sodium 1 Tablet 2 TABLET PO ×2 (05:27→17:20)
[2021-10-26] MEDS: Folic Acid 1 MG Tablet PO (05:27)
[2021-10-26] MEDS: Menthol/Lanolin/Calamine/Znox 113 GM Tube 1 APPLIC TOPICAL ×2 (05:27→17:22)
[2021-10-26] MEDS: APIXABAN 5 MG TABLET PO ×2 (05:27→17:19)
[2021-10-26] MEDS: Gabapentin 100 MG Capsule 200 MG PO ×3 (05:27→19:43)
[2021-10-26] MEDS: Sertraline 100 MG Tablet PO (05:27)
[2021-10-26] MEDS: Allopurinol 100 MG Tablet 200 MG PO (05:28)
[2021-10-26] MEDS: Magnesium Chloride 64 MG Delay Rel.Tablet 128 MG PO ×3 (05:28→19:43)
[2021-10-26] MEDS: Pantoprazole Sodium 40 MG Tablet PO ×2 (05:28→17:20)
[2021-10-26 06:04] LABS: Absolute Lymphocyte Count 2.47 X10^3/uL (0.83-4.51); Absolute Neutrophil Count 3.9 X10^3/uL (2.0-7.7); Basophil# 0.02 X10^3/uL; Basophil% 0.3 % (0-1); Eosinophil# 0.04 X10^3/uL; Eosinophils% 0.6 % (0-5); Hematocrit 28.9 % (40-54); Hemoglobin 9.6 g/dL (13.0-16.5); Lymphocyte # 2.47 X10^3/ul (0.83-4.51); Lymphocyte % 34.4 % (19-41); Mean Corp Hgb Conc 33.2 g/dL (32-36); Mean Corpuscular Hgb 29.9 pg (27.0-32.0); Monocyte# 0.67 X10^3/uL; Monocyte% 9.3 % (0-10); NRBC Flagged by Analyzer 0 % (0-5); Neutrophil # 3.87 X10^3/uL (2.7-7.7); Neutrophil % 53.7 % (47-70); Platelet Count 210 K/mm3 (150-450); RBC Distribution Width CV 15.5 % (11.6-14.6); RBC Distribution Width SD 51.3 fl (35.1-43.9); Red Blood Count 3.21 M/mm3 (4.6-6.2); White Blood Count 7.2 K/mm3 (4.4-11.0)
[2021-10-26 06:40] LABS: Anion Gap 7 (5-15); BUN 20 mg/dL (7-18); BUN/Creat Ratio 25.5 RATIO (10-20); Calcium,Total 8.9 mg/dL (8.5-10.1); Chloride 103 mmol/L (98-107); Creatinine, Serum 0.78 mg/dL (0.70-1.30); EST Glomerular Filtration Rate 104 mL/min (>60); Est Glom Filt Rate - Afr Amer 126 mL/min (>60); Estimated Creatinine Clearance 76.52 ml/min; Glucose 101 mg/dL (74-106); Sodium Level 138 mmol/L (136-145)
[2021-10-26 07:28] VITALS: O2SAT 95
[2021-10-26] MEDS: 0.9% Saline Lock 10 ML Syringe IV ×2 (07:30→19:53)
[2021-10-26] MEDS: Calcium Carb/Vitamin D 1 TABLET Tablet PO ×2 (08:16→17:20)
[2021-10-26] MEDS: Potassium Chloride Oral Tablet 20 MEQ PO (08:16)
[2021-10-26] MEDS: Tuberculin,Purif.prot.deriv. 50 TU/ML Vial 0.1 ML ID (09:54)
[2021-10-26] MEDS: Ascorbic Acid 500 MG Tablet PO (13:12)
[2021-10-26] MEDS: Ferrous Sulfate 325 MG Tablet PO (13:12)
[2021-10-26 13:56] VITALS: BP 145/66; PULSE 75; RESP 16; TEMP 36.7; O2SAT 95
[2021-10-26] MEDS: Mirtazapine 15 MG Tablet PO (19:43)
[2021-10-27] MEDS: Allopurinol 100 MG Tablet 200 MG PO (05:59)
[2021-10-27] MEDS: APIXABAN 5 MG TABLET PO ×2 (05:59→17:42)
[2021-10-27] MEDS: Magnesium Chloride 64 MG Delay Rel.Tablet 128 MG PO ×3 (05:59→19:39)
[2021-10-27] MEDS: Sertraline 100 MG Tablet PO (05:59)
[2021-10-27] MEDS: Gabapentin 100 MG Capsule 200 MG PO ×3 (05:59→19:39)
[2021-10-27] MEDS: Pantoprazole Sodium 40 MG Tablet PO ×2 (05:59→17:42)
[2021-10-27] MEDS: Senna/Docusate Sodium 1 Tablet 2 TABLET PO ×2 (05:59→17:42)
[2021-10-27] MEDS: Folic Acid 1 MG Tablet PO (05:59)
[2021-10-27] MEDS: Menthol/Lanolin/Calamine/Znox 113 GM Tube 1 APPLIC TOPICAL ×2 (06:00→17:44)
[2021-10-27 07:01] VITALS: O2SAT 94
[2021-10-27] MEDS: Potassium Chloride Oral Tablet 20 MEQ PO (08:22)
[2021-10-27] MEDS: Calcium Carb/Vitamin D 1 TABLET Tablet PO ×2 (08:22→17:42)
[2021-10-27 10:00] VITALS: RESP 16
[2021-10-27] MEDS: Ferrous Sulfate 325 MG Tablet PO (11:26)
[2021-10-27] MEDS: Ascorbic Acid 500 MG Tablet PO (11:26)
[2021-10-27 13:21] VITALS: BP 144/68; PULSE 80; RESP 18; TEMP 36.3; O2SAT 96
--- NOTE | 2021-10-27 18:12 | NURSING ---
pt returned from Dr Brunson office with orders, stop eliquis, support hose both legs, increase ferrous sulfate BID, and start EC aspirin daily. f/u 4 wks
--- NOTE | 2021-10-27 19:38 | PCA ---
COMPANY SECRETARY noticed a very foul odor on patients breath. offered to help patient brush their teeth but they refused oral care. nurse aware.
[2021-10-27] MEDS: Mirtazapine 15 MG Tablet PO (19:39)
[2021-10-27] MEDS: Acetaminophen 325 MG Tablet 650 MG PO (19:39)
[2021-10-28] MEDS: Gabapentin 100 MG Capsule 200 MG PO ×3 (06:45→20:09)
[2021-10-28] MEDS: Magnesium Chloride 64 MG Delay Rel.Tablet 128 MG PO ×3 (06:45→20:09)
[2021-10-28] MEDS: Allopurinol 100 MG Tablet 200 MG PO (06:45)
[2021-10-28] MEDS: Menthol/Lanolin/Calamine/Znox 113 GM Tube 1 APPLIC TOPICAL ×2 (06:46→20:10)
[2021-10-28] MEDS: Sertraline 100 MG Tablet PO (06:46)
[2021-10-28] MEDS: Senna/Docusate Sodium 1 Tablet 2 TABLET PO ×2 (06:46→17:41)
[2021-10-28] MEDS: Folic Acid 1 MG Tablet PO (06:46)
[2021-10-28] MEDS: Pantoprazole Sodium 40 MG Tablet PO ×2 (06:46→17:40)
[2021-10-28 06:48] VITALS: BP 144/83; PULSE 93; RESP 18; O2SAT 92
[2021-10-28] MEDS: Potassium Chloride Oral Tablet 20 MEQ PO (08:25)
[2021-10-28] MEDS: Ferrous Sulfate 325 MG Tablet PO ×2 (08:25→17:40)
[2021-10-28] MEDS: Calcium Carb/Vitamin D 1 TABLET Tablet PO ×2 (08:25→17:40)
[2021-10-28] MEDS: Aspirin E.C. 81 MG Tablet PO (08:27)
[2021-10-28] MEDS: Ascorbic Acid 500 MG Tablet PO (11:39)
--- NOTE | 2021-10-28 12:18 | PHA.CONS1_ITS ---
Progress Note - Pharmacy Subjective: TCU ADMISSION Objective: Allergies No Known Allergies Allergy (Verified 10/09/21 10:50) Current Medications Generic Name Dose Route Start Last Admin Trade Name Chandrakantq PRN Reason Stop Dose Admin Acetaminophen 650 mg 10/25/21 14:33 10/27/21 19:39 Acetaminophen 325 Mg Tablet PO 650 mg Q6H PRN PRN Administration PAIN 1-10 Allopurinol 200 mg 10/26/21 06:00 10/28/21 06:45 Allopurinol 100 Mg Tablet PO 200 mg DAILY OLIMPIA Administration Ascorbic Acid 500 mg 10/26/21 12:00 10/28/21 11:39 Ascorbic Acid 500 Mg Tablet PO 500 mg 1200 OLIMPIA Administration Aspirin 81 mg 10/28/21 08:00 10/28/21 08:27 Aspirin E.C. 81 Mg Tablet PO 81 mg BREAKFAST OLIMPIA Administration Bisacodyl 10 mg 10/25/21 14:33 Bisacodyl 10 Mg Suppository RC .PRN X 1 PRN Constipation Calamine/Phenol 1 applic 10/25/21 18:00 10/28/21 06:46 Menthol/Lanolin/Calamine/Znox 113 Gm Tube TOPICAL 1 applic BID OLIMPIA Administration Protocol Calcium/Vitamin D 1 tablet 10/25/21 17:00 10/28/21 08:25 Calcium Carb/Vitamin D 1 Tablet Tablet PO 1 tablet BIDCM OLIMPIA Administration Emollient Ointment 1 applic 10/25/21 22:00 10/27/21 19:39 Emollient Combination No.72 500 Ml Lotion TOPICAL 1 applic QHS OLIMPIA Administration Ferrous Sulfate 325 mg 10/28/21 08:00 10/28/21 08:25 Ferrous Sulfate 325 Mg Tablet PO 325 mg BIDCM OLIMPIA Administration Folic Acid 1 mg 10/26/21 06:00 10/28/21 06:46 Folic Acid 1 Mg Tablet PO 1 mg DAILY OLIMPIA Administration Gabapentin 200 mg 10/25/21 22:00 10/28/21 06:45 Gabapentin 100 Mg Capsule PO 200 mg TID [facility] Administration Heparin Sodium (Beef Lung) 50 units 10/25/21 14:33 Heparin Pf Lock 10 Units/Ml 50 Units/5 Ml Syringe IV UD PRN Port-a-Cath (VAD)Heparin Flush Magnesium Chloride 128 mg 10/25/21 22:00 10/28/21 06:45 Magnesium Chloride 64 Mg Delay Rel.Tablet PO 128 mg TID OLIMPIA Administration Magnesium Hydroxide 30 ml 10/25/21 14:33 Magnesium Hydroxide 30 Ml Udc PO .PRN X 1 PRN Constipation Mirtazapine 15 mg 10/25/21 20:00 10/27/21 19:39 Mirtazapine 15 Mg Tablet PO 15 mg 2000 OLIMPIA Administration Pantoprazole Sodium 40 mg 10/25/21 18:00 10/28/21 06:46 Pantoprazole Sodium 40 Mg Tablet PO 40 mg BID OLIMPIA Administration Potassium Chloride 20 meq 10/26/21 08:00 10/28/21 08:25 Potassium Chloride Oral Tablet 20 Meq PO 20 meq DAILYCM OLIMPIA Administration Senna/Docusate Sodium 2 tablet 10/25/21 18:00 10/28/21 06:46 Senna/Docusate Sodium 1 Tablet PO 2 tablet BID OLIMIPA Administration Sertraline HCl 100 mg 10/26/21 06:00 10/28/21 06:46 Sertraline 100 Mg Tablet PO 100 mg DAILY OLIMPIA Administration Sodium Chloride 10 - 40 ml 10/26/21 07:44 10/26/21 19:53 0.9% Saline Lock 10 Ml Syringe IV 10 ml UD PRN Administration SALINE FLUSH Tuberculin PPD 0.1 ml 11/02/21 10:00 Tuberculin,Purif.Prot.Deriv. 50 Tu/Ml Vial ID 11/02/21 10:01 X1 ONE Problem List (Last Reviewed 10/25/21 @ 19:[address] Ezequiel Tam MD) Chronic deep vein thrombosis (DVT) (Chronic) Multiple myeloma (Acute) Hepatitis C (Acute) Fatty liver (Acute) ICH (intracerebral hemorrhage) (Acute) IVH (intraventricular hemorrhage) (Acute) Subarachnoid hemorrhage (Acute) Obstructive sleep apnea (Acute) Gastroesophageal reflux disease (Acute) Depression (Acute) Alcohol abuse (Acute) Hypertension (Chronic) Neuropathy (Acute) Gout (Acute) Iron deficiency anemia (Acute) Urinary tract infection (Acute) Orthostatic hypotension (Acute) Upper gastrointestinal bleeding (Acute) Debility (Acute) Acute on chronic anemia (Chronic) Vital Signs Temp Pulse Resp BP Pulse Ox 97.4 F L 93 18 144/83 H 92 10/27/21 13:21 10/28/21 06:48 10/28/21 06:48 10/28/21 06:48 10/28/21 06:48 Oxygen Delivery Method Room Air Weight: 80.002 kg Body Mass Index (BMI) 23.8 Sodium 138 mmol/L (136-145) 10/26/21 05:15 Potassium 4.0 mmol/L (3.5-5.1) 10/26/21 05:15 Chloride 103 mmol/L (98-107) 10/26/21 05:15 Carbon Dioxide 28.0 mmol/L (21.0-32.0) 10/26/21 05:15 Anion Gap 7 (5-15) 10/26/21 05:15 BUN 20 mg/dL (7-18) H 10/26/21 05:15 Creatinine 0.78 mg/dL (0.70-1.30) 10/26/21 05:15 Est GFR (MDRD) Af Amer 126 mL/min (>60) 10/26/21 05:15 Est GFR (MDRD) Non-Af 104 mL/min (>60) 10/26/21 05:15 BUN/Creatinine Ratio 25.5 RATIO (10-20) H 10/26/21 05:15 Glucose 101 mg/dL (74-106) 10/26/21 05:15 Assessment/Plan: 1. Pain: Tylenol 650mg PO Q6h PRN Pain 1-10. Please continue to monitor for in creased/decreased S/S pain, PRN medication usage. 2. Hx of recurrent DVT: Aspirin 81mg PO daily, Eliquis dc'd per Dr. Brunson recommendations. Please continue to monitor for S/S bleeding/bruising. 3. GERD/ Hx bleeding: Protonix 40mg PO BID. Please continue to monitor for S/S GERD exacerbations, S/S recurrent bleeding, H/H. 4. Iron deficiency Anemia: Ferrous sulfate 325mg PO BID. Please continue to monitor H/H, iron studies as clinically indicated (last iron studies 10/2021). 5. Gout: Allopurinol 200mg PO daily. Please continue to monitor for S/S gout flare-up. 6. Neuropathy: Gabapentin 200mg PO TID. Please continue to monitor renal function, improvement in neuropathy symptoms, oversedation. This is a Beer's criteria medication which can increase the risk of falls/fractures in patients >65. Please continue to monitor for falls. 7. Hypokalemia: KCl 20mEq PO Daily. Please continue to monitor potassium levels (last K 4.0 on 10/26). 8. General Wellness: Vitamin C 500mg PO Daily, Os-Nahum +D 1 tab PO BID, Folic acid 1mg PO Daily, Magnesium chloride 128mg PO TID. Please continue to monitor labs as clinically appropriate. Psychotropic Medications: 9. Depression: Zoloft 100mg PO Daily. Please see H/P regarding GDR recommendation. 10. Insomnia/ appetite loss: Remeron 15mg PO QPM. Please see note in H/P regarding GDR recommendation. Unnecessary Medications: None Bowel Regimen: Senna/Docusate 2 tab PO BID, MOM 30mL PO x1 PRN, Dulcolax 10mg DE x1 PRN. Please continue to monitor for increased/decreased constipation and/or diarrhea. Date of Note:: 10/28/21
[2021-10-28 13:10] VITALS: BP 136/76; PULSE 76; RESP 16; TEMP 36.4; O2SAT 98
--- NOTE | 2021-10-28 14:47 | CHAPLAIN ---
Type of Pastoral Visit ___ Initial Visit _x__ Follow-up Visit ___ On-call Visit ___ General Patient Visit ___ Spiritual Assessment ___ Family Conference ___ Bereavement ___ Rapid Response ___ Code Blue ___ Other (describe below) Pastoral Care Referral From _x__ Patient ___ Family ___ Nurse ___ Physician ___ Sand Temperer ___ Flash Drier Operator ___ Other (describe below) Sacrament/Intervention _x__ Active listening ___ Anointing ___ Pentecostal ___ Bereavement ___ Communion _x__ Marline exploration ___ ___ Life review _x__ Prayer ___ Reconciliation ___ Sacrament of Sick _x__ Supportive presence ___ Wedding ___ Other (describe below) Pastoral Comments patient and spouse both watching TV; both talk about the DR visit yesterday; pt and spouse both are more optimistic and encouraged per their indication and report; presence and prayer welcomed; casual conversation as well
--- NOTE | 2021-10-28 15:33 | NURSING ---
Resident and spouse, Sandra, notified of 2 residents testing positive for COVID.
--- NOTE | 2021-10-28 17:42 | NURSING ---
Sitting up and eating supper. Would like to have his marlee applied later this evening.
[2021-10-28] MEDS: Mirtazapine 15 MG Tablet PO (20:09)
[2021-10-28 22:00] VITALS: RESP 16
[2021-10-29] MEDS: Allopurinol 100 MG Tablet 200 MG PO (05:47)
[2021-10-29] MEDS: Folic Acid 1 MG Tablet PO (05:47)
[2021-10-29] MEDS: Pantoprazole Sodium 40 MG Tablet PO ×2 (05:47→18:12)
[2021-10-29] MEDS: Senna/Docusate Sodium 1 Tablet 2 TABLET PO ×2 (05:47→18:12)
[2021-10-29] MEDS: Sertraline 100 MG Tablet PO (05:47)
[2021-10-29] MEDS: Gabapentin 100 MG Capsule 200 MG PO ×3 (05:47→22:11)
[2021-10-29] MEDS: Magnesium Chloride 64 MG Delay Rel.Tablet 128 MG PO ×3 (05:47→22:11)
[2021-10-29] MEDS: Menthol/Lanolin/Calamine/Znox 113 GM Tube 1 APPLIC TOPICAL ×2 (05:48→18:12)
[2021-10-29 05:52] VITALS: BP 142/83; PULSE 102; RESP 20; TEMP 36.5; O2SAT 96
[2021-10-29] MEDS: Ferrous Sulfate 325 MG Tablet PO ×2 (07:32→16:46)
[2021-10-29] MEDS: Potassium Chloride Oral Tablet 20 MEQ PO (07:32)
[2021-10-29] MEDS: Calcium Carb/Vitamin D 1 TABLET Tablet PO ×2 (07:32→16:46)
[2021-10-29] MEDS: Aspirin E.C. 81 MG Tablet PO (07:35)
[2021-10-29] MEDS: Ascorbic Acid 500 MG Tablet PO (12:07)
[2021-10-29 15:02] VITALS: BP 130/74; PULSE 109; RESP 16; TEMP 36.8; O2SAT 96
[2021-10-29] MEDS: Mirtazapine 15 MG Tablet PO (22:11)
[2021-10-30] MEDS: Magnesium Chloride 64 MG Delay Rel.Tablet 128 MG PO ×3 (05:19→21:07)
[2021-10-30] MEDS: Gabapentin 100 MG Capsule 200 MG PO ×3 (05:19→21:07)
[2021-10-30] MEDS: Folic Acid 1 MG Tablet PO (05:19)
[2021-10-30] MEDS: Allopurinol 100 MG Tablet 200 MG PO (05:19)
[2021-10-30] MEDS: Sertraline 100 MG Tablet PO (05:19)
[2021-10-30] MEDS: Pantoprazole Sodium 40 MG Tablet PO ×2 (05:19→17:25)
[2021-10-30] MEDS: Menthol/Lanolin/Calamine/Znox 113 GM Tube 1 APPLIC TOPICAL ×2 (05:19→17:26)
[2021-10-30] MEDS: Senna/Docusate Sodium 1 Tablet 2 TABLET PO ×2 (05:19→17:25)
[2021-10-30] MEDS: Aspirin E.C. 81 MG Tablet PO (08:30)
[2021-10-30] MEDS: Calcium Carb/Vitamin D 1 TABLET Tablet PO ×2 (08:30→17:25)
[2021-10-30] MEDS: Ferrous Sulfate 325 MG Tablet PO ×2 (08:30→17:26)
[2021-10-30] MEDS: Potassium Chloride Oral Tablet 20 MEQ PO (08:30)
[2021-10-30] MEDS: Ascorbic Acid 500 MG Tablet PO (11:25)
[2021-10-30 14:18] VITALS: BP 137/84; PULSE 104; RESP 16; TEMP 36.4; O2SAT 99
[2021-10-30] MEDS: Acetaminophen 325 MG Tablet 650 MG PO (21:06)
[2021-10-30] MEDS: Mirtazapine 15 MG Tablet PO (21:07)
[2021-10-30 22:00] VITALS: PULSE 104; O2SAT 98
[2021-10-31] MEDS: Sertraline 100 MG Tablet PO (05:16)
[2021-10-31] MEDS: Allopurinol 100 MG Tablet 200 MG PO (05:16)
[2021-10-31] MEDS: Folic Acid 1 MG Tablet PO (05:16)
[2021-10-31] MEDS: Pantoprazole Sodium 40 MG Tablet PO ×2 (05:17→17:15)
[2021-10-31] MEDS: Menthol/Lanolin/Calamine/Znox 113 GM Tube 1 APPLIC TOPICAL ×2 (05:17→17:15)
[2021-10-31] MEDS: Magnesium Chloride 64 MG Delay Rel.Tablet 128 MG PO ×3 (05:17→22:49)
[2021-10-31] MEDS: Gabapentin 100 MG Capsule 200 MG PO ×3 (05:17→22:49)
[2021-10-31] MEDS: Senna/Docusate Sodium 1 Tablet 2 TABLET PO (05:19)
[2021-10-31] MEDS: Ferrous Sulfate 325 MG Tablet PO ×2 (08:37→17:15)
[2021-10-31] MEDS: Calcium Carb/Vitamin D 1 TABLET Tablet PO ×2 (08:37→17:15)
[2021-10-31] MEDS: Aspirin E.C. 81 MG Tablet PO (08:38)
[2021-10-31] MEDS: Potassium Chloride Oral Tablet 20 MEQ PO (08:38)
[2021-10-31] MEDS: Ascorbic Acid 500 MG Tablet PO (12:00)
[2021-10-31 14:00] VITALS: BP 152/90; PULSE 109; RESP 17; TEMP 37.2; O2SAT 94
[2021-10-31] MEDS: Mirtazapine 15 MG Tablet PO (22:49)
[2021-11-01] MEDS: Menthol/Lanolin/Calamine/Znox 113 GM Tube 1 APPLIC TOPICAL ×2 (06:00→16:33)
[2021-11-01] MEDS: Allopurinol 100 MG Tablet 200 MG PO (06:01)
[2021-11-01] MEDS: Senna/Docusate Sodium 1 Tablet 2 TABLET PO (06:01)
[2021-11-01] MEDS: Gabapentin 100 MG Capsule 200 MG PO ×3 (06:01→21:11)
[2021-11-01] MEDS: Folic Acid 1 MG Tablet PO (06:01)
[2021-11-01] MEDS: Pantoprazole Sodium 40 MG Tablet PO ×2 (06:01→16:33)
[2021-11-01] MEDS: Magnesium Chloride 64 MG Delay Rel.Tablet 128 MG PO ×3 (06:01→21:11)
[2021-11-01] MEDS: Sertraline 100 MG Tablet PO (06:01)
[2021-11-01] MEDS: Aspirin E.C. 81 MG Tablet PO (07:50)
[2021-11-01] MEDS: Calcium Carb/Vitamin D 1 TABLET Tablet PO ×2 (07:50→16:33)
[2021-11-01] MEDS: Ferrous Sulfate 325 MG Tablet PO ×2 (07:50→16:33)
[2021-11-01] MEDS: Potassium Chloride Oral Tablet 20 MEQ PO (07:50)
[2021-11-01 12:28] VITALS: BP 131/80; PULSE 107; RESP 17; TEMP 37.1; O2SAT 99
[2021-11-01] MEDS: Ascorbic Acid 500 MG Tablet PO (13:03)
[2021-11-01 19:02] VITALS: BP 154/91; PULSE 116
--- NOTE | 2021-11-01 19:02 | NURSING ---
Addendum entered by Sharita Mayer 11/01/21 19:10: Dr Tam aware. No new orders given. Original Note: Witnessed fall by Sal SINGH at 1845. Resident states he had a misstep while getting into bed. Landed on his buttock but hit his head on the wall while falling. States it was just a light bump. No bump or bleeding noted. assisted back to bed. Transfers ok and does not complain of any pain anywhere. Dr Tam paged at this time to notify him of the fall.
[2021-11-01] MEDS: Mirtazapine 15 MG Tablet PO (21:11)
--- NOTE | 2021-11-01 21:13 | PCA ---
This SOFT WORK CIGAR MACHINE OPERATOR was helping patient back into bed as patient was turning to sit in bed patient stepped back and lost balance falling on bottom and bumped head on wall. SOFT WORK CIGAR MACHINE OPERATOR went to get help and nurse Sharita helped SOFT WORK CIGAR MACHINE OPERATOR get patient up in bed.
[2021-11-02] MEDS: Magnesium Chloride 64 MG Delay Rel.Tablet 128 MG PO ×3 (05:19→20:41)
[2021-11-02] MEDS: Folic Acid 1 MG Tablet PO (05:19)
[2021-11-02] MEDS: Pantoprazole Sodium 40 MG Tablet PO ×2 (05:19→17:26)
[2021-11-02] MEDS: Sertraline 100 MG Tablet PO (05:19)
[2021-11-02] MEDS: Allopurinol 100 MG Tablet 200 MG PO (05:19)
[2021-11-02] MEDS: Senna/Docusate Sodium 1 Tablet 2 TABLET PO ×2 (05:19→17:26)
[2021-11-02] MEDS: Menthol/Lanolin/Calamine/Znox 113 GM Tube 1 APPLIC TOPICAL ×2 (05:19→17:25)
[2021-11-02] MEDS: Gabapentin 100 MG Capsule 200 MG PO ×3 (05:19→20:41)
[2021-11-02 05:44] LABS: Absolute Lymphocyte Count 2.51 X10^3/uL (0.83-4.51); Absolute Neutrophil Count 3.8 X10^3/uL (2.0-7.7); Basophil# 0.02 X10^3/uL; Basophil% 0.3 % (0-1); Eosinophil# 0.09 X10^3/uL; Eosinophils% 1.2 % (0-5); Hematocrit 26.4 % (40-54); Hemoglobin 8.6 g/dL (13.0-16.5); Lymphocyte # 2.51 X10^3/ul (0.83-4.51); Lymphocyte % 34.6 % (19-41); Mean Corp Hgb Conc 32.6 g/dL (32-36); Mean Corpuscular Hgb 29.9 pg (27.0-32.0); Mean Corpuscular Volume 91.7 fL (80-94); Mean Platelet Vol. 8.9 fl (6.2-12.0); Monocyte# 0.74 X10^3/uL; Monocyte% 10.2 % (0-10); NRBC Flagged by Analyzer 0 % (0-5); Neutrophil # 3.79 X10^3/uL (2.7-7.7); Neutrophil % 52.3 % (47-70); Platelet Count 209 K/mm3 (150-450); RBC Distribution Width CV 16.2 % (11.6-14.6); RBC Distribution Width SD 53.8 fl (35.1-43.9); Red Blood Count 2.88 M/mm3 (4.6-6.2); White Blood Count 7.3 K/mm3 (4.4-11.0)
[2021-11-02 06:28] LABS: Anion Gap 7 (5-15); BUN 18 mg/dL (7-18); BUN/Creat Ratio 25.2 RATIO (10-20); Calcium,Total 8.6 mg/dL (8.5-10.1); Chloride 103 mmol/L (98-107); Creatinine, Serum 0.71 mg/dL (0.70-1.30); EST Glomerular Filtration Rate 116 mL/min (>60); Est Glom Filt Rate - Afr Amer 141 mL/min (>60); Estimated Creatinine Clearance 76.52 ml/min; Glucose 100 mg/dL (74-106); Potassium 3.9 mmol/L (3.5-5.1); Sodium Level 138 mmol/L (136-145)
[2021-11-02] MEDS: Aspirin E.C. 81 MG Tablet PO (08:05)
[2021-11-02] MEDS: Calcium Carb/Vitamin D 1 TABLET Tablet PO ×2 (08:05→17:25)
[2021-11-02] MEDS: Ferrous Sulfate 325 MG Tablet PO ×2 (08:05→17:25)
[2021-11-02] MEDS: Potassium Chloride Oral Tablet 20 MEQ PO (08:05)
[2021-11-02 09:21] VITALS: BP 134/78; PULSE 109
[2021-11-02] MEDS: 0.9% Normal Saline 1,000 ML 999 ML IV (09:44)
[2021-11-02] MEDS: 0.9% Saline Lock 10 ML Syringe IV (09:44)
[2021-11-02] MEDS: Acetaminophen 325 MG Tablet 650 MG PO (09:45)
[2021-11-02] MEDS: Tuberculin,Purif.prot.deriv. 50 TU/ML Vial 0.1 ML ID (11:03)
[2021-11-02] MEDS: Ascorbic Acid 500 MG Tablet PO (11:07)
[2021-11-02 14:39] VITALS: BP 142/83; PULSE 100; RESP 16; TEMP 36.2; O2SAT 96
[2021-11-02] MEDS: Mirtazapine 15 MG Tablet PO (20:40)
[2021-11-02 22:30] VITALS: PULSE 68; RESP 14; O2SAT 97
[2021-11-03] MEDS: Gabapentin 100 MG Capsule 200 MG PO ×3 (05:31→21:36)
[2021-11-03] MEDS: Magnesium Chloride 64 MG Delay Rel.Tablet 128 MG PO ×3 (05:31→21:36)
[2021-11-03] MEDS: Allopurinol 100 MG Tablet 200 MG PO (05:31)
[2021-11-03] MEDS: Senna/Docusate Sodium 1 Tablet 2 TABLET PO ×2 (05:31→17:24)
[2021-11-03] MEDS: Menthol/Lanolin/Calamine/Znox 113 GM Tube 1 APPLIC TOPICAL ×2 (05:32→17:24)
[2021-11-03] MEDS: Folic Acid 1 MG Tablet PO (05:32)
[2021-11-03] MEDS: Sertraline 100 MG Tablet PO (05:32)
[2021-11-03] MEDS: Pantoprazole Sodium 40 MG Tablet PO ×2 (05:32→17:24)
[2021-11-03] MEDS: Ferrous Sulfate 325 MG Tablet PO ×2 (08:10→17:24)
[2021-11-03] MEDS: Aspirin E.C. 81 MG Tablet PO (08:10)
[2021-11-03] MEDS: Calcium Carb/Vitamin D 1 TABLET Tablet PO ×2 (08:10→17:24)
[2021-11-03] MEDS: Potassium Chloride Oral Tablet 20 MEQ PO (08:10)
--- NOTE | 2021-11-03 09:00 | NURSING ---
This nurse was informed by COMIC WRITER, Tia that pt acquired a skin tear to left forearm while transferring to bathroom. pt stated he bumped the bathroom door latch and cut his arm. DSD applied.
--- NOTE | 2021-11-03 09:31 | CASEMGMT ---
Addendum entered by Arianna Islas 11/03/21 16:51: Ordered night time O2 through [employer]. Addendum entered by Arianna Islas 11/03/21 16:46: Spoke with sleep lab and next available appt is 11/15. Spoke with to update. She is agreeable and requesting DC remain 11/07. Addendum entered by Arianna Islas 11/03/21 09:40: Notified nursing to make sleep study appt. Can adjust DC date to accommodate sleep study. Pt agreeable for SW to make appt for [facility]. Original Note: Social Work IDT met with patient and for care plan meeting. Discussed patient's progress in PT/OT/ST and nursing. Pt making progress. Explained Medicare benefit. Encouraged to contact secondary insurance to ensure copay coverage as pt did admit on day 17 of benefit. The goal is for pt to return home with . is retired and will be home 27/03 to supervise. Stressed pt needs CGA as his balance is off and a high fall risk. expressed understanding. Discussed DC date. IDT, and pt agreeable to DC 11/07. SW to order outpatient PT/OT - pt requesting [facility]. No DME needs. to transport. Plan: DC home with 11/07, [facility] PT/OT RIVAS Smith
[2021-11-03 10:00] VITALS: PULSE 117; RESP 18; O2SAT 95
--- NOTE | 2021-11-03 10:59 | NURSING ---
Contacted sleep lab to request a sleep study for the pt on Monday. Sleep lab to review patient's records and contact to schedule time.
[2021-11-03] MEDS: Ascorbic Acid 500 MG Tablet PO (11:44)
[2021-11-03 13:44] VITALS: BP 140/76; PULSE 102; RESP 16; TEMP 36.2; O2SAT 97
--- NOTE | 2021-11-03 14:30 | SLEEP ---
I spoke by phone to Sandra-. She says pt has not worn his cpap consistently in many years. She says studies and DME were through Dr. Starr's office. Currently the pt does not have established DME.She said someone told her they would hold pt's TCU d/c if needed for purpose of d/c to , probably Monday. I informed her that isn't always possible and we will reach out again after obtaining previous studies to know what testing is needed (if any) as in the best interest of the patient. I called [place] at Dr. Starr's, she says pt not seen there since 2014 and that she will fax studies to the sleep center.
[2021-11-03] MEDS: 0.9% Saline Lock 10 ML Syringe IV (17:24)
--- NOTE | 2021-11-03 20:01 | PCM.DC.SUM ---
Providers Date of Admission: 10/25/21 Primary Care Physician: Dr. Onur Garcia MD Reason For Visit: DEBILITY Diagnosis Discharge Diagnosis (1) Debility: Status: Acute Code(s): R53.81 - Other malaise (2) Acute on chronic anemia: Status: Chronic Code(s): D64.9 - Anemia, unspecified (3) Upper gastrointestinal bleeding: Status: Acute Code(s): K92.2 - Gastrointestinal hemorrhage, unspecified (4) Orthostatic hypotension: Status: Acute Code(s): I95.1 - Orthostatic hypotension (5) Urinary tract infection: Status: Acute Code(s): N39.0 - Urinary tract infection, site not specified (6) Iron deficiency anemia: Status: Acute Code(s): D50.9 - Iron deficiency anemia, unspecified (7) Gout: Status: Acute Code(s): M10.9 - Gout, unspecified (8) Neuropathy: Status: Acute Code(s): G62.9 - Polyneuropathy, unspecified (9) Hypertension: Status: Chronic Code(s): I10 - Essential (primary) hypertension (10) Alcohol abuse: Status: Acute Code(s): F10.10 - Alcohol abuse, uncomplicated (11) Depression: Status: Acute Code(s): F32.A - Depression, unspecified (12) Gastroesophageal reflux disease: Status: Acute Code(s): K21.9 - Gastro-esophageal reflux disease without esophagitis (13) Obstructive sleep apnea: Status: Acute Code(s): G47.33 - Obstructive sleep apnea (adult) (pediatric) (14) Subarachnoid hemorrhage: Status: Acute Code(s): I60.9 - Nontraumatic subarachnoid hemorrhage, unspecified (15) IVH (intraventricular hemorrhage): Status: Acute Code(s): I61.5 - Nontraumatic intracerebral hemorrhage, intraventricular (16) ICH (intracerebral hemorrhage): Status: Acute Code(s): I61.9 - Nontraumatic intracerebral hemorrhage, unspecified (17) Fatty liver: Status: Acute Code(s): K76.0 - Fatty (change of) liver, not elsewhere classified (18) Hepatitis C: Status: Acute Code(s): B19.20 - Unspecified viral hepatitis C without hepatic coma (19) Multiple myeloma: Status: Acute Code(s): C90.00 - Multiple myeloma not having achieved remission (20) Chronic deep vein thrombosis (DVT): Status: Chronic Code(s): I82.509 - Chronic embolism and thrombosis of unspecified deep veins of unspecified lower extremity Medications at Discharge Home Medications ferrous sulfate 325 mg PO 1200 06/18/20 folic acid 1 mg PO DAILY 10/09/21 sertraline 100 mg PO DAILY 10/09/21 ascorbic acid (vitamin C) [Vitamin C] 500 mg PO 1200 10/12/21 Emollient Combination No.72 [Eucerin Intensive Repair] 1 applic TOPICAL QHS 10/25/21 calcium carbonate-vitamin D3 [Oyster Shell Calcium-Vit D3] 1 tab PO BIDCM 10/25/21 acetaminophen [Tylenol] 650 mg PO Q6H PRN PRN #0 tab 11/03/21 allopurinol 200 mg PO DAILY 30 Days #30 tab 11/03/21 aspirin 81 mg PO BREAKFAST #0 tab 11/03/21 cephalexin 500 mg PO Q12 4 Days #8 cap 11/03/21 doxycycline monohydrate 100 mg PO BID 4 Days #8 cap 11/03/21 gabapentin 200 mg PO TID 30 Days #180 cap 11/03/21 magnesium chloride [Mag 64] 128 mg PO TID 30 Days #90 tab 11/03/21 mirtazapine 15 mg PO 2000 30 Days #30 tab 11/03/21 pantoprazole 40 mg PO BID 30 Days #60 tab 11/03/21 potassium chloride [Klor-Con M20] 20 meq PO DAILYCM 30 Days #30 tab 11/03/21 Hospital Course Operations None Procedures None Summary of Care Provided Minutes Spent on Discharge: 35 Hospital Course: 71 year old male with below past medical history hospitalized for anemia secondary to gastrointestinal bleeding, admitted to [facility], now admitted to TCU with debility, here for rehabilitation, strengthening, prior to discharge home with . 11/03/2021 Chin abcess treated with warm compresses, Keflex, Doxycycline for 7 day course. Obstructive sleep apnea - resident not compliant with previously PAP therapy due to mask intolerance. Resident has been educated on improved outcomes from treating sleep apnea, and he is willing to try again. Resident has snoring, hypersomnia, witnessed apnea, and would benefit from a sleep study to get him back on PAP therapy. Discharge home with 11/07/2021, sleep study 11/15/2021, [facility]. Physical Exam Const alert and oriented x3 General Appearance: cooperative HEENT normocephalic Eyes PERRL and EOMs intact bilaterally Neck supple, no JVD and no carotid bruits Resp normal respiratory effort, normal air movement and clear to auscultation bilaterally Cardio regular rate and regular rhythm GI normal to inspection, nondistended, normoactive bowel sounds, non-tender and non-distended Extremity normal capillary refill General Extremity: Negative for edema Skin no rashes or lesions noted General Skin Exam: no breakdown Psych affect normal Appearance: appropriate Weight / BMI Weight Weight: 82.418 kg Body Mass Index (BMI) 23.8 ABG / Lab / Microbiology Data Result Diagrams: 11/02/21 05:07 11/02/21 05:07 Microbiology: Microbiology 10/31/21 09:45 Nasal Secretion SARS-CoV-2 Antigen (Rapid) - Final D/C Instructions Discharge Diet: No restrictions Discharge Activity: Return to Normal Activity, May Shower and Use Walker Weight Bearing Status: Weight bearing as tolerated Call your doctor if you observe: Fever of 101 or Higher, Inability to urinate, Inability to have a bowel movement, Shortness of breath, Dizziness, Fainting spells, Swelling in the ankles, Chest pain and Uncontrolled pain Additional Instructions: Discharge home with 11/07/2021, sleep study 11/15/2021, [facility]. Please Follow Up With: Kodi Brunson MD When: As scheduled. Meaningful Use Info Meaningful Use Diagnoses (Choose all that apply): None applicable Discharge Plan Admission Admit Date/Time: 10/25/21 14:17 Primary Reason for Your Visit: Debility. Attending Provider: Ezequiel Tam Chi Primary Care Provider: Onur Garcia Instructions Additional Instructions / Restrictions: ischarge home with 11/07/2021, sleep study 11/15/2021, [facility]. Discharge Orders/Prescriptions Prescriptions: New acetaminophen [Tylenol] 325 mg Tablet 650 mg PO Q6H PRN PRN (Reason: PAIN 1-10) Qty: 0 RF: 0 aspirin 81 mg Tablet,Delayed Release (Dr/Ec) 81 mg PO BREAKFAST Qty: 0 RF: 0 doxycycline monohydrate 100 mg Capsule 100 mg PO BID 4 Days Qty: 8 RF: 0 cephalexin 500 mg Capsule 500 mg PO Q12 4 Days Qty: 8 RF: 0 Continued ferrous sulfate 325 MG tablet 325 mg PO 1200 RF: 0 sertraline 100 mg Tablet 100 mg PO DAILY RF: 0 folic acid 1 mg Tablet 1 mg PO DAILY RF: 0 ascorbic acid (vitamin C) [Vitamin C] 500 mg Tablet 500 mg PO 1200 RF: 0 calcium carbonate-vitamin D3 [Oyster Shell Calcium-Vit D3] 500 mg-5 mcg (200 unit) tablet 1 tab PO BIDCM RF: 0 Emollient Combination No.72 [Eucerin Intensive Repair] 1 applic topical QHS RF: 0 allopurinol 100 mg tablet 200 mg PO DAILY 30 Days Qty: 30 RF: 0 potassium chloride [Klor-Con M20] 20 mEq tablet,ER particles/crystals 20 meq PO DAILYCM 30 Days Qty: 30 RF: 0 pantoprazole 40 mg tablet,delayed release (DR/EC) 40 mg PO BID 30 Days Qty: 60 RF: 0 mirtazapine 15 mg tablet 15 mg PO 2000 30 Days Qty: 30 RF: 0 gabapentin 100 mg capsule 200 mg PO TID 30 Days Qty: 180 RF: 0 Mag 64 64 mg tablet,delayed release (DR/EC) 128 mg PO TID 30 Days Qty: 90 RF: 0 Discontinued thiamine HCl (vitamin B1) 50 mg Tablet 100 mg PO DAILY RF: 0 acetaminophen [Tylenol] 325 mg Tablet 650 mg PO Q6H PRN PRN (Reason: PAIN 1-10) Qty: 0 RF: 0 magnesium hydroxide 400 mg/5 mL Suspension 30 ml PO .PRN X 1 PRN (Reason: Constipation) Qty: 0 RF: 0 bisacodyl 10 mg Suppository 10 mg SD .PRN X 1 PRN (Reason: Constipation) Qty: 0 RF: 0 heparin, porcine (PF) 10 unit/mL Syringe 50 unit IV UD PRN (Reason: Port-a-Cath (VAD)Heparin Flush) Qty: 60 RF: 0 sennosides-docusate sodium [Stool Softener-Stimulant Laxat] 8.6-50 mg tablet 2 tab PO BID RF: 0 menthol-zinc oxide [Calmoseptine] 0.44-20.6 % ointment 1 applic topical BID RF: 0 Eliquis 5 mg tablet 5 mg PO BID RF: 0 Referrals / Follow Up: Sleep Study [Other] (Schedule when pt is ready for discharge. ) [facility] [Other] - 11/15/21 8:00 am Onur Garcia MD [Primary Care Provider] - Kodi Brunson MD [STAFF PHYSICIAN] - 10/27/21 3:30 pm ( will Transport ) Disposition Disposition (needs filled in before D/C Order can be placed): Home, Self Care
[2021-11-03] MEDS: Doxycycline 100 MG CAPSULE PO (20:04)
[2021-11-03] MEDS: Acetaminophen 325 MG Tablet 650 MG PO (20:04)
[2021-11-03] MEDS: Cephalexin 500 MG Capsule PO (20:05)
[2021-11-03] MEDS: Mirtazapine 15 MG Tablet PO (20:05)
[2021-11-04] MEDS: Magnesium Chloride 64 MG Delay Rel.Tablet 128 MG PO ×3 (06:10→20:55)
[2021-11-04] MEDS: Gabapentin 100 MG Capsule 200 MG PO ×3 (06:10→20:56)
[2021-11-04] MEDS: Sertraline 100 MG Tablet PO (06:10)
[2021-11-04] MEDS: Cephalexin 500 MG Capsule PO ×2 (06:10→17:20)
[2021-11-04] MEDS: Doxycycline 100 MG CAPSULE PO ×2 (06:10→17:20)
[2021-11-04] MEDS: 0.9% Saline Lock 10 ML Syringe IV ×2 (06:10→10:31)
[2021-11-04] MEDS: Senna/Docusate Sodium 1 Tablet 2 TABLET PO ×2 (06:11→17:20)
[2021-11-04] MEDS: Folic Acid 1 MG Tablet PO (06:11)
[2021-11-04] MEDS: Pantoprazole Sodium 40 MG Tablet PO ×2 (06:11→17:20)
[2021-11-04] MEDS: Menthol/Lanolin/Calamine/Znox 113 GM Tube 1 APPLIC TOPICAL ×2 (06:12→17:22)
[2021-11-04] MEDS: Allopurinol 100 MG Tablet 200 MG PO (06:13)
[2021-11-04] MEDS: Aspirin E.C. 81 MG Tablet PO (08:11)
[2021-11-04] MEDS: Calcium Carb/Vitamin D 1 TABLET Tablet PO ×2 (08:11→17:20)
[2021-11-04] MEDS: Ferrous Sulfate 325 MG Tablet PO ×2 (08:11→17:20)
[2021-11-04] MEDS: Potassium Chloride Oral Tablet 20 MEQ PO (08:11)
[2021-11-04] MEDS: Ascorbic Acid 500 MG Tablet PO (10:30)
[2021-11-04 12:19] VITALS: PULSE 92
[2021-11-04 13:27] VITALS: BP 150/103; PULSE 109; RESP 14; TEMP 36.1; O2SAT 98
[2021-11-04 15:00] VITALS: BP 143/85
--- NOTE | 2021-11-04 15:51 | NURSING ---
Resident and spouse, Sandra, notified of a resident on the unit testing positive for COVID.
[2021-11-04] MEDS: Mirtazapine 15 MG Tablet PO (20:56)
[2021-11-05 05:45] VITALS: BP 127/94; PULSE 110
[2021-11-05] MEDS: Menthol/Lanolin/Calamine/Znox 113 GM Tube 1 APPLIC TOPICAL ×2 (05:45→16:45)
[2021-11-05] MEDS: Allopurinol 100 MG Tablet 200 MG PO (05:47)
[2021-11-05] MEDS: Gabapentin 100 MG Capsule 200 MG PO ×3 (05:47→21:02)
[2021-11-05] MEDS: Magnesium Chloride 64 MG Delay Rel.Tablet 128 MG PO ×3 (05:47→21:02)
[2021-11-05] MEDS: Pantoprazole Sodium 40 MG Tablet PO ×2 (05:47→16:44)
[2021-11-05] MEDS: Cephalexin 500 MG Capsule PO ×2 (05:47→16:44)
[2021-11-05] MEDS: Sertraline 100 MG Tablet PO (05:47)
[2021-11-05] MEDS: Doxycycline 100 MG CAPSULE PO ×2 (05:48→16:44)
[2021-11-05] MEDS: Folic Acid 1 MG Tablet PO (05:48)
[2021-11-05] MEDS: Ferrous Sulfate 325 MG Tablet PO ×2 (08:00→16:44)
[2021-11-05] MEDS: Calcium Carb/Vitamin D 1 TABLET Tablet PO ×2 (08:00→16:44)
[2021-11-05] MEDS: Potassium Chloride Oral Tablet 20 MEQ PO (08:00)
[2021-11-05] MEDS: Aspirin E.C. 81 MG Tablet PO (09:00)
--- NOTE | 2021-11-05 10:17 | MDS.RN ---
Information for the mds was obtained from review of the clinical record, interview of resident, staff, and direct observation of resident's care.
[2021-11-05] MEDS: Ascorbic Acid 500 MG Tablet PO (11:11)
[2021-11-05 12:09] VITALS: BP 140/78; PULSE 107; RESP 16; TEMP 36.4; O2SAT 98
--- NOTE | 2021-11-05 12:52 | CASEMGMT ---
Social Work BIMS and PHQ-9 completed for MDS assessment. Arianna Islas, CALIBRATION LABORATORY TECHNICIAN EVAPORATOR OPERATOR
[2021-11-05 14:20] VITALS: PULSE 90; RESP 16; O2SAT 97
[2021-11-05] MEDS: Senna/Docusate Sodium 1 Tablet 2 TABLET PO (16:44)
--- NOTE | 2021-11-05 17:21 | NURSING ---
aid came to this nurse and stated pt wanted to see a nurse due to his coughing and feeling like he was coughing on a pill that he got earlier. this nurse to room and pt was coughing. had pt sit up straight on side of bed. asked pt if he was short of breath or felt like he had some thing in his throat. pt stated no it just feels like its rattling in me. checked lungs and pt had expiratory wheezes in front and crackles to left upper and lower post. had pt cough and deep breath and use i.s. rechecked lungs and no change. pt did state he felt a little better. coughing stopped. will continue to monitor. reported to rn.
[2021-11-05 20:00] VITALS: BP 135/86; PULSE 114; RESP 18; TEMP 36.4; O2SAT 92
--- NOTE | 2021-11-05 20:03 | NURSING ---
2003: notified via [facility] about patients condition from report given from previous nurse on day shift. Previous nurse had stated patient had been coughing after taking a pill and he stated It just feels like a gargle in my throat. Nurse had heard crackles in patients posterior lung sounds. This nurse then assessed patient and continued to hear crackles. Pt also stated on previous shift he had an ashma attack and is feeling better now, just a little short of breathe. 2004: called [facility] and ordered a chest xray PA and lateral. 2011: Patient transported down to chest xray in wheelchair by SIVA Burton. 2025: Patient returned to floor via wheelchair from chest xray.
--- NOTE | 2021-11-05 20:14 | RAD_ITS ---
INDICATION: POSSIBLE no foreign body. EXAMINATION/TECHNIQUE: X-RAY - XR Chest 2 Views COMPARISON: CT chest 05/27/2021. FINDINGS: LINES/DEVICES: Left-sided tunneled chest port with the tip projecting over the right cavoatrial junction level. LUNGS: Symmetric normal lung volumes. No airspace opacity or abnormal interstitial pattern. No nodule or mass. No pleural effusion or pneumothorax. MEDIASTINUM AND CARDIOVASCULAR STRUCTURES: Normal size and contour of the cardiomediastinal silhouette. No evidence of pulmonary vascular congestion. BONES AND SOFT TISSUES: Advanced multilevel degenerative endplate changes visualized spine and chronic, T11 level anterior vertebral body height loss. RAD/Chest PA and Lateral IMPRESSION: 1. No radiographic evidence of acute cardiopulmonary disease. Electronically Signed: Tony Haider DO at 22:15 EST ,
[2021-11-05] MEDS: Mirtazapine 15 MG Tablet PO (21:02)
[2021-11-06 05:29] VITALS: BP 153/90; PULSE 102; RESP 18; TEMP 36.3; O2SAT 97
[2021-11-06] MEDS: Doxycycline 100 MG CAPSULE PO ×2 (05:31→17:22)
[2021-11-06] MEDS: Cephalexin 500 MG Capsule PO ×2 (05:31→17:22)
[2021-11-06] MEDS: Folic Acid 1 MG Tablet PO (05:31)
[2021-11-06] MEDS: Menthol/Lanolin/Calamine/Znox 113 GM Tube 1 APPLIC TOPICAL ×2 (05:31→17:26)
[2021-11-06] MEDS: Magnesium Chloride 64 MG Delay Rel.Tablet 128 MG PO ×3 (05:31→20:09)
[2021-11-06] MEDS: Sertraline 100 MG Tablet PO (05:32)
[2021-11-06] MEDS: Gabapentin 100 MG Capsule 200 MG PO ×3 (05:32→20:10)
[2021-11-06] MEDS: Allopurinol 100 MG Tablet 200 MG PO (05:32)
[2021-11-06] MEDS: Senna/Docusate Sodium 1 Tablet 2 TABLET PO ×2 (05:32→17:23)
[2021-11-06] MEDS: Pantoprazole Sodium 40 MG Tablet PO ×2 (05:33→17:23)
[2021-11-06] MEDS: Potassium Chloride Oral Tablet 20 MEQ PO (08:28)
[2021-11-06] MEDS: Aspirin E.C. 81 MG Tablet PO (08:29)
[2021-11-06] MEDS: Calcium Carb/Vitamin D 1 TABLET Tablet PO ×2 (08:29→17:23)
[2021-11-06] MEDS: Ferrous Sulfate 325 MG Tablet PO ×2 (08:30→17:22)
[2021-11-06] MEDS: Ascorbic Acid 500 MG Tablet PO (12:59)
[2021-11-06 13:35] VITALS: BP 147/79; PULSE 103; RESP 12; TEMP 36.6; O2SAT 96
[2021-11-06 20:00] VITALS: PULSE 109; RESP 16; O2SAT 95
[2021-11-06] MEDS: Mirtazapine 15 MG Tablet PO (20:10)
[2021-11-07] MEDS: Sertraline 100 MG Tablet PO (05:26)
[2021-11-07] MEDS: Folic Acid 1 MG Tablet PO (05:26)
[2021-11-07] MEDS: Senna/Docusate Sodium 1 Tablet 2 TABLET PO (05:26)
[2021-11-07] MEDS: Doxycycline 100 MG CAPSULE PO (05:26)
[2021-11-07] MEDS: Pantoprazole Sodium 40 MG Tablet PO (05:26)
[2021-11-07] MEDS: Allopurinol 100 MG Tablet 200 MG PO (05:27)
[2021-11-07] MEDS: Cephalexin 500 MG Capsule PO (05:27)
[2021-11-07] MEDS: Magnesium Chloride 64 MG Delay Rel.Tablet 128 MG PO (05:27)
[2021-11-07] MEDS: Menthol/Lanolin/Calamine/Znox 113 GM Tube 1 APPLIC TOPICAL (05:27)
[2021-11-07] MEDS: Gabapentin 100 MG Capsule 200 MG PO (05:27)
[2021-11-07] MEDS: Potassium Chloride Oral Tablet 20 MEQ PO (08:25)
[2021-11-07] MEDS: Ferrous Sulfate 325 MG Tablet PO (08:25)
[2021-11-07] MEDS: Aspirin E.C. 81 MG Tablet PO (08:26)
[2021-11-07] MEDS: Calcium Carb/Vitamin D 1 TABLET Tablet PO (08:26)
[2021-11-07 10:48] VITALS: BP 144/70; PULSE 75; RESP 16; TEMP 37; O2SAT 95
== END 2021-11-07 10:00 | disposition home or self-care (01) | DRG 378 ==
PROVIDERS: Admitting Provider Family Medicine Geriatric Medicine; PCP Family Medicine; Visit Provider Family Medicine Geriatric Medicine
DX: K55.21 Angiodysplasia of colon with hemorrhage (principal); C90.00 Multiple myeloma not having achieved remission; L02.01 Cutaneous abscess of face; D50.9 Iron deficiency anemia, unspecified; E55.9 Vitamin D deficiency, unspecified; K21.00 Gastro-esophageal reflux disease with esophagitis, without bleeding; K76.0 Fatty (change of) liver, not elsewhere classified; I10 Essential (primary) hypertension; G62.9 Polyneuropathy, unspecified; G47.33 Obstructive sleep apnea (adult) (pediatric); M10.9 Gout, unspecified; F10.10 Alcohol abuse, uncomplicated; K31.811 Angiodysplasia of stomach and duodenum with bleeding; K92.2 Gastrointestinal hemorrhage, unspecified; Z86.19 Personal history of other infectious and parasitic diseases; F32.A Depression, unspecified; Z23 Encounter for immunization; Z86.718 Personal history of other venous thrombosis and embolism; Z79.899 Other long term (current) drug therapy; Z79.01 Long term (current) use of anticoagulants; Z86.16 Personal history of COVID-19; Z91.19 Patient's noncompliance with other medical treatment and regimen
CPT/HCPCS: 36415; 71046; 80048; 85025; 87426; 90732; 92507; 92523; 92526; 92610; 97110; 97116; 97162; 97166; 97530; 97535; 97802; G0009; J7030; A4216

== ENCOUNTER 2021-11-08 12:11 | Outpatient (RCR) | payer MEDICARE, BC, SELFPAY ==
--- NOTE | 2021-11-08 13:37 | HP.PTEVAL_ITS ---
Patient's Visit Information NIDIA HICKMAN is a 71 year old M referred to Physical Therapy by Dr. Ezequiel Tam MD with a diagnosis of DEBILITY. Date of Evaluation: 11/08/21 Physical Therapist: Leonard You, PT, Cert MDT, OCS - Visit Plan Frequency: 2x /Week Duration: 4 Weeks Plan: PT INTERVETIONS BALANCE PROGRAM,BLE STRENGTHENING,ENDURANCE PROGRAM ,GAIT TRAINING ,AND FUNCTIONAL STRENGTHENING - Subjective This 71 y/o male presents to physical therapy with debility and weakness. Patient was admitted to [facility] initially 6weeks for Covid and immune system was low due to chemotherapy for CA ,low hemoglobin. Transferred [facility] for rehab 2 weeks. Then was transferred [facility] found bleed abdominal , low hemoglobin 6.7 then when medical stable was in Rehab for 4th floor then eventually TCU . Patient was d/c to home and plan to seen Dr Brunson for multiple myeloma. Patient has multiple comorbities DVT left leg recently 4 months ago, L- T compression fracture, ETHOH, neuropathy ,orthostatic Hypotension, lumbar stenosis ,colon /stomach angiodysplasia ,sleep apnea ,UTI. Patient has issues for balance ,conditioning and walking. Patient lives 1 story home with 2 steps with rails. Walk-in shower, elevated toilet, grab bars, Patient has FWW but uses cane. Denies paresthesia left foot. Patient impairments causes functional debility. SOCIAL: . VOCATION: retired - Objective POSTURE: mild forward posture. NEURO: denies paresthesia/tingling. GAIT: ambulates with cane mild forward reciprocal pattern 2 point gait slow vinny. STAIRS: one step at time with rails. BALANCE: fair+. MMT : BLE quads/hams 4- /5,hip flexion 4-/5,hip abd 3+/5 ,ankle 4/5 - Balance/Special Test Scores Functional Gait Assessment Score: 6 % Disability: 80.0000 CATSIB Score (Max score 120 seconds): 30 Lower Extremity Functional Score: 15 - Goals Goal 1:: Patient to be I with HEP for strength and balance Goal Time Frame: 4-6 Weeks Goal 2:: Patient to improve quality of gait community distances with no cane Goal Time Frame: 4-6 Weeks Goal 3:: Patient improve CAT SIB by 10 point to improve balance Goal Time Frame: 4-6 Weeks Goal 4:: Patient to improve functional gait assessment score by 10 points to improv balance and gait Goal Time Frame: 4-6 Weeks Goal 5:: Patient to improve LFES score by 10 points to improve gait and QOL Goal Time Frame: 4-6 Weeks Goal 6:: Patient to increase strength by 4/5 to improve gait and stairs. Goal Time Frame: 4-6 Weeks - Rehabilitation Potential Physical Therapy Diagnosis: Patient has multiple comorbities influences patient condition along with decrease balance, weakness gait and function /ADL'S. thus benefit from skilled PT Rehabilitation Potential: Good - Anticipated Interventions Patient/Client Instruction: Educate patient on: Condition For the Purpose of:: To increase ROM, To improve muscle performance and motor function, To improve ability to perform ADL's, To increase tolerance to activity/condition/position, To improve performance and independence with ADL's, To improve ability of physical actions for home/community/work/leisure, To improve gait and locomotor functions, To improve health of tissue, To increase flexibility/ROM, To improve endurance, To improve balance, To improve safety with gait, To assume or resume ADL's, To improve safety Therapeutic Exercise to Include: Strength training, Endurance training, Balance training, Coordination, Gait and locomotor training Comment: BLE For the Purpose of:: To improve muscle performance and motor function, To improve ability to perform ADL's, To increase tolerance to activity/condition/position, To improve performance and independence with ADL's, To improve ability of physical actions for home/community/work/leisure, To improve gait and locomotor functions, To increase flexibility/ROM, To improve endurance, To improve balance, To improve safety with gait, To assume or resume ADL's, To improve health and function, To improve tolerance to ADL's Thank you for the opportunity to evaluate your patient. For Medicare and Medicare HMO plans, please review the plan of care and approve it. It will need to be FAXED BACK to us at [phone] for Medicare purposes. For Medicare only, by signing this I certify the plan of care. Please let me know if there are questions or concerns regarding this plan of care. Physician Sig nature: Date:
== END 2021-11-08 19:00 | disposition home or self-care (01) ==
LOC: PT 12:11
PROVIDERS: PCP Family Medicine; Referring Provider Family Medicine Geriatric Medicine; Visit Provider Family Medicine Geriatric Medicine
DX: R26.81 Unsteadiness on feet (principal)
CPT/HCPCS: 97110; 97162

== ENCOUNTER 2021-11-15 20:00 | Outpatient (CLI) | payer MEDICARE, BC, SELFPAY | END 2021-11-15 23:59 | disposition home or self-care (01) | PROVIDERS: PCP Family Medicine; Visit Provider Family Medicine Geriatric Medicine | DX: G47.33 Obstructive sleep apnea (adult) (pediatric) (principal) | CPT/HCPCS: 95811 ==

== ENCOUNTER 2021-11-16 02:38 | Observation (INO) | payer OTHER, SELFPAY ==
[2021-11-16] VITALS (18 sets, daily range): BP systolic 99–136; BP diastolic 50–92; PULSE 92–108; RESP 13–27; TEMP 36.6–37.6; O2SAT 92–97; BMI 26.2
--- NOTE | 2021-11-16 03:40 | CT_ITS ---
STUDY: CTA CHEST REASON FOR EXAM: Male, 71 years old. Shortness of breath. RADIATION DOSAGE (If Supplied By Facility): CTDIvol = ( 11.17 ) mGy, DLP = ( 439.71 ) mGycm TECHNIQUE: The examination was performed with the intravenous administration of 100 mL Isovue-370. Post-processing of the angiographic images was performed, with multiplanar reformation and maximum intensity projections.. Individualized dose optimization techniques were used for this CT. COMPARISON: May 27, 2021. Chest x-ray November 05, 2021. FINDINGS: Normal enhancement of the main pulmonary artery and right and left pulmonary arteries. Normal enhancement of the bilateral peripheral pulmonary arteries. There is no demonstrated pulmonary embolism. Scattered atherosclerotic calcification of the thoracic aorta. There is no demonstrated aortic dissection. The heart is not enlarged. Coronary artery calcifications. No pericardial effusion. Small mediastinal lymph nodes largest measuring 1.2 cm. Normal hilar regions. Normal visualized trachea and bronchi. There is now patchy interstitial density with peribronchial thickening within the superior segment left lower lobe. Small bilateral pleural effusions. No pneumothorax. Normal chest wall structures. Normal osseous structures. Normal visualized upper abdomen. CT/CTA Chest W/WO Contrast IMPRESSION: No pulmonary embolus or thoracic aortic dissection. Small bilateral pleural effusions with left lower lobe opacity, the latter of which may represent pneumonia. Coronary artery calcifications. Electronically Signed: Jonathan Delarosa MD at 4:33 EDT Reading Location ID and State: [id number] / , Service support ,
--- NOTE | 2021-11-16 07:16 | EKG12_ITS ---
Test Reason : TACHYCARDIA Blood Pressure : / mmHG Vent. Rate : 166 BPM Atrial Rate : 163 BPM P-R Int : 000 ms QRS Dur : 076 ms QT Int : 294 ms P-R-T Axes : 000 -10 -11 degrees QTc Int : 488 ms Supraventricular tachycardia T wave abnormality, consider inferior ischemia Abnormal ECG Confirmed by TATI QUIROS, LUCILA ([id number]), desk editor PRABHJOT NARAYAN ([id number]) on 11/18/2021 9:13:56 AM Referred By: MARCOS Confirmed By:LUCILA DUFFY MD
[2021-11-16 08:01] LABS: Procalcitonin 0.15 ng/mL (0.00-0.09)
--- NOTE | 2021-11-16 08:01 | EKG12_ITS ---
Test Reason : TACHYCARDIA Blood Pressure : / mmHG Vent. Rate : 111 BPM Atrial Rate : 111 BPM P-R Int : 138 ms QRS Dur : 076 ms QT Int : 350 ms P-R-T Axes : 047 -10 033 degrees QTc Int : 476 ms Sinus tachycardia Otherwise normal ECG Confirmed by TATI QUIROS, LUCILA ([id number]), assistant editor PRABHJOT NARAYAN ([id number]) on 11/18/2021 9:14:12 AM Referred By: MARCOS Confirmed By:LUCILA DUFFY MD
[2021-11-16 08:03] LABS: Absolute Lymphocyte Count 2.21 X10^3/uL (0.83-4.51); Absolute Neutrophil Count 3.7 X10^3/uL (2.0-7.7); Basophil# 0.02 X10^3/uL; Basophil% 0.3 % (0-1); Eosinophil# 0.17 X10^3/uL; Eosinophils% 2.5 % (0-5); Hematocrit 26.9 % (40-54); Hemoglobin 8.3 g/dL (13.0-16.5); Lymphocyte # 2.21 X10^3/ul (0.83-4.51); Lymphocyte % 32.9 % (19-41); Mean Corp Hgb Conc 30.9 g/dL (32-36); Mean Corpuscular Hgb 28.7 pg (27.0-32.0); Mean Corpuscular Volume 93.1 fL (80-94); Mean Platelet Vol. 9.2 fl (6.2-12.0); Monocyte# 0.64 X10^3/uL; Monocyte% 9.5 % (0-10); NRBC Flagged by Analyzer 0 % (0-5); Neutrophil # 3.65 X10^3/uL (2.7-7.7); Neutrophil % 54.4 % (47-70); Platelet Count 192 K/mm3 (150-450); RBC Distribution Width CV 17.3 % (11.6-14.6); RBC Distribution Width SD 59.1 fl (35.1-43.9); Red Blood Count 2.89 M/mm3 (4.6-6.2); White Blood Count 6.7 K/mm3 (4.4-11.0)
--- NOTE | 2021-11-16 08:03 | EKG12_ITS ---
Test Reason : RHYTHM CHANGE Blood Pressure : / mmHG Vent. Rate : 117 BPM Atrial Rate : 117 BPM P-R Int : 130 ms QRS Dur : 082 ms QT Int : 360 ms P-R-T Axes : 060 -05 053 degrees QTc Int : 502 ms Sinus tachycardia with frequent Premature ventricular complexes Otherwise normal ECG Confirmed by TATI QUIROS, LUCILA ([id number]), video news editor PRABHJOT NARAYAN ([id number]) on 11/18/2021 9:14:58 AM Referred By: MARCOS Confirmed By:LUCILA DUFFY MD
[2021-11-16 08:15] LABS: BUN 20 mg/dL (7-18); Calcium,Total 8.3 mg/dL (8.5-10.1); Creatinine, Serum 0.87 mg/dL (0.70-1.30); EST Glomerular Filtration Rate 92 mL/min (>60); Est Glom Filt Rate - Afr Amer 112 mL/min (>60); Glucose 113 mg/dL (74-106); Magnesium 1.5 mg/dL (1.6-2.6); Troponin-I HS 10 pg/mL (3.0-78.0)
[2021-11-16 08:16] LABS: Anion Gap 6 (5-15); Chloride 111 mmol/L (98-107); Potassium 3.5 mmol/L (3.5-5.1); Sodium Level 140 mmol/L (136-145); Thyroid Stim Hormone (TSH) 2.43 uIU/mL (0.358-3.74)
--- NOTE | 2021-11-16 08:19 | NURSING ---
DR VARGAS FOR DR BOOGIE
--- NOTE | 2021-11-16 08:25 | EX.ED.DYSGE1 ---
HPI Narrative Narrative: Patient is a 71-year-old male with past medical history of multiple myeloma as well as previous DVT currently on Eliquis. He was having a sleep study done last night when they report that his heart rate was in the 60s and suddenly jumped into the mid 100. They state with this he also was complaining of left-sided chest discomfort and therefore the patient was sent to the ER for further evaluation. Patient denies any trauma to the left chest. He denies any fevers or chills nausea or vomiting or diaphoresis. He states that he has no history of cardiac dysrhythmia either and he denies any excessive stimulant use or illicit drug use. [facility] Medical History Acute deep vein thrombosis (DVT) of left lower extremity Anemia Angiodysplasia of colon Angiodysplasia of stomach Autonomic neuropathy BPH with obstruction/lower urinary tract symptoms Closed L1 vertebral fracture Closed L2 vertebral fracture Closed T11 fracture Cognitive dysfunction Colon polyps Dysphagia Essential (primary) hypertension ETOH abuse Fatty liver History of COVID-19 History of hepatitis C Idiopathic gout Iron deficiency Lumbar spinal stenosis Lytic lesion of bone on x-ray Multiple myeloma not having achieved remission Obstructive sleep apnea Orthostatic hypotension Osteopenia determined by x-ray Pancytopenia Prostatic enlargement Syncope Thrombocytopenia Thyroid nodule incidentally noted on imaging study Torn ligament Urinary (tract) obstruction Home Medications ferrous sulfate 325 mg PO 1200 06/18/20 [History Last Taken Unknown] folic acid 1 mg PO DAILY 10/09/21 [History Last Taken Unknown] sertraline 100 mg PO DAILY 10/09/21 [History Last Taken Unknown] ascorbic acid (vitamin C) [Vitamin C] 500 mg PO 1200 10/12/21 [History Last Taken Unknown] Emollient Combination No.72 [Eucerin Intensive Repair] 1 applic TOPICAL QHS 10/25/21 [History Last Taken Unknown] calcium carbonate-vitamin D3 [Oyster Shell Calcium-Vit D3] 1 tab PO BIDCM 10/25/21 [History Last Taken Unknown] acetaminophen [Tylenol] 650 mg PO Q6H PRN PRN #0 tab 11/03/21 [Rx Last Taken Unknown] allopurinol 200 mg PO DAILY 30 Days #30 tab 11/03/21 [Rx Last Taken Unknown] aspirin 81 mg PO BREAKFAST #0 tab 11/03/21 [Rx Last Taken Unknown] cephalexin 500 mg PO Q12 4 Days #8 cap 11/03/21 [Rx Last Taken Unknown] doxycycline monohydrate 100 mg PO BID 4 Days #8 cap 11/03/21 [Rx Last Taken Unknown] gabapentin 200 mg PO TID 30 Days #180 cap 11/03/21 [Rx Last Taken Unknown] magnesium chloride [Mag 64] 128 mg PO TID 30 Days #90 tab 11/03/21 [Rx Last Taken Unknown] mirtazapine 15 mg PO 2000 30 Days #30 tab 11/03/21 [Rx Last Taken Unknown] pantoprazole 40 mg PO BID 30 Days #60 tab 11/03/21 [Rx Last Taken Unknown] potassium chloride [Klor-Con M20] 20 meq PO DAILYCM 30 Days #30 tab 11/03/21 [Rx Last Taken Unknown] Allergy/AdvReac Type Severity Reaction Status Date / Time No Known Allergies Allergy Verified 10/09/21 10:50 Family History Mother Heart disease Hypertension Father Hypertension Surgical History History of bunionectomy History of transurethral resection of prostate Social History (Updated 10/25/21 @ 19:[address] Ezequiel Tam MD) household members: spouse Smoking Status: Never smoker alcohol intake: current alcohol intake frequency: 3 or more drinks per day substance use type: does not use ROS ROS ED Constitutional Constitutional ED: Denies chills or fever(s) ENT ENT ED: Denies sore throat Cardiovascular Cardiovascular: Reports chest pain, palpitations and racing heartbeat Respiratory/Chest Respiratory/Chest: Denies cough or dyspnea Gastrointestinal Gastrointestinal: Denies abdominal pain, diarrhea, nausea or vomiting Genitourinary Genitourinary ED: Denies dysuria Musculoskeletal Musculoskeletal: Denies back pain or myalgias Integumentary Denies rash Neurologic Neurologic: Denies headache(s) Hematologic/Lymphatic Hematologic/Lymphatic: Reports easy bleeding and easy bruising EXAM Physical Exam Const Vital Signs: 11/16/21 07:00 Pulse Rate 100 Respiratory Rate 27 H Blood Pressure 117/59 L Blood Pressure Mean 78 Pulse Ox 97 Positive well nourished and well developed General Appearance ED: well developed and pallor HEENT Reports moist mucous membranes Eyes PERRL and EOMs intact bilaterally General Eye ED: Yes pale conjunctiva Neck supple and no JVD Chest Wall Chest Narrative: There is reproducible left anterior lateral chest wall pain along rib regions 6-8 without bony deformity or crepitance Resp normal respiratory effort and clear to auscultation bilaterally Cardio Rate: other Other Details: Patient has a tachycardic rate with irregularly irregular rhythm consistent with atrial fibrillation GI normal to inspection, nondistended, normoactive bowel sounds, non-tender, non-distended and no masses GI Narrative: No voluntary guarding or rigidity no pulsatile mass Auscultation: normoactive bowel sounds Palpation: soft Extremity normal to inspection Extremity Narrative: Negative Homans' sign bilaterally there is trace pitting edema noted bilaterally it is chronic per patient Neuro oriented x3 and CN's II-XII intact bilaterally Sensorium / Orientation: alert Motor Exam: strength 5/5 throughout Psych mental status grossly normal Skin no rashes or lesions noted General Skin Exam: pallor MDM MDM MDM Narrative Medical decision making narrative: Patient presented to the ER in sinus tachycardia going approximately 111 bpm with an occasional PVC noted. However after being moved into the bed and being placed on the monitor he then converted into a tachycardic rate of approximately 170 without obvious P wave formation and slight irregularity most consistent with atrial fibrillation. The patient denied any past medical history of cardiac dysrhythmia and reports he is currently on Eliquis because he has had a past DVT. With this new onset dysrhythmia he will be started on Cardizem for rate control and even though he is currently on blood thinners I did elect to perform a CTA of his chest because of the pain. CT scan showed no dissection or pneumothorax. I did document a new left-sided opacity in the area where he has pain the patient does not have a fever or elevated white count he does not have cough and therefore do not feel this is true pneumonia. A pro calcitonin was obtained which is under 0.25 also going against possible infectious cause. The patient was placed on a Cardizem drip and at 15 mg/h his heart rate was 92 100 bpm but remained irregular most consistent with A. fib. Work-up also showed a decreased magnesium at 1.5 to 2 g will be replaced. At this time with his persistent dysrhythmia he will need to be kept in the hospital for further evaluation rate control and therefore be placed in the hospital at this time. Lab Data Attestation: I reviewed the patient's lab results. Labs: Laboratory Results - last 24 hr 11/16/21 11/16/21 11/16/21 03:12 03:12 03:12 WBC 6.7 RBC 2.89 L Hgb 8.3 L Hct 26.9 L MCV 93.1 MCH 28.7 MCHC 30.9 L RDW Std Deviation 59.1 H RDW Coeff of [place] 17.3 H Plt Count 192 MPV 9.2 Immature Gran % (Auto) 0.400 Neut % (Auto) 54.4 Lymph % (Auto) 32.9 [place] % (Auto) 9.5 Eos % (Auto) 2.5 Baso % (Auto) 0.3 Absolute Neuts (auto) 3.7 Absolute Lymphs (auto) 2.21 Nucleated RBC % 0 PT 15.5 H INR 1.3 APTT 86.6 H Sodium 140 Potassium 3.5 Chloride 111 H Carbon Dioxide 23.0 Anion Gap 6 BUN 20 H Creatinine 0.87 Est GFR (MDRD) Af Amer 112 Est GFR (MDRD) Non-Af 92 BUN/Creatinine Ratio 23.0 H Glucose 113 H Calcium 8.3 L Magnesium 1.5 L Troponin I High Sens 10 B-Natriuretic Peptide Procalcitonin TSH 2.43 11/16/21 11/16/21 03:12 06:25 WBC RBC Hgb Hct MCV MCH MCHC RDW Std Deviation RDW Coeff of [place] Plt Count MPV Immature Gran % (Auto) Neut % (Auto) Lymph % (Auto) [place] % (Auto) Eos % (Auto) Baso % (Auto) Absolute Neuts (auto) Absolute Lymphs (auto) Nucleated RBC % PT INR APTT Sodium Potassium Chloride Carbon Dioxide Anion Gap BUN Creatinine Est GFR (MDRD) Af Amer Est GFR (MDRD) Non-Af BUN/Creatinine Ratio Glucose Calcium Magnesium Troponin I High Sens B-Natriuretic Peptide 208.0 H Procalcitonin 0.15 H TSH Discharge Plan Triage ED Provider: Moe Montano Dx/Rx/DC Orders Prescriptions: No Action ferrous sulfate 325 MG tablet 325 mg PO 1200 RF: 0 sertraline 100 mg Tablet 100 mg PO DAILY RF: 0 folic acid 1 mg Tablet 1 mg PO DAILY RF: 0 ascorbic acid (vitamin C) [Vitamin C] 500 mg Tablet 500 mg PO 1200 RF: 0 calcium carbonate-vitamin D3 [Oyster Shell Calcium-Vit D3] 500 mg-5 mcg (200 unit) tablet 1 tab PO BIDCM RF: 0 Emollient Combination No.72 [Eucerin Intensive Repair] 1 applic topical QHS RF: 0 acetaminophen [Tylenol] 325 mg Tablet 650 mg PO Q6H PRN PRN (Reason: PAIN 1-10) Qty: 0 RF: 0 aspirin 81 mg Tablet,Delayed Release (Dr/Ec) 81 mg PO BREAKFAST Qty: 0 RF: 0 doxycycline monohydrate 100 mg Capsule 100 mg PO BID 4 Days Qty: 8 RF: 0 cephalexin 500 mg Capsule 500 mg PO Q12 4 Days Qty: 8 RF: 0 allopurinol 100 mg tablet 200 mg PO DAILY 30 Days Qty: 30 RF: 0 potassium chloride [Klor-Con M20] 20 mEq tablet,ER particles/crystals 20 meq PO DAILYCM 30 Days Qty: 30 RF: 0 pantoprazole 40 mg tablet,delayed release (DR/EC) 40 mg PO BID 30 Days Qty: 60 RF: 0 mirtazapine 15 mg tablet 15 mg PO 2000 30 Days Qty: 30 RF: 0 gabapentin 100 mg capsule 200 mg PO TID 30 Days Qty: 180 RF: 0 Mag 64 64 mg tablet,delayed release (DR/EC) 128 mg PO TID 30 Days Qty: 90 RF: 0 Primary Care Provider: Onur Garcia
[2021-11-16 08:26] LABS: International Normalized Ratio 1.3; Partial Thromboplast Time 86.6 Seconds (24.1-36.2); Prothrombin Time (Protime)PT. 15.5 SECONDS (11.7-14.9)
[2021-11-16] MEDS: Morphine 4 MG/ML Syringe IV (08:26)
--- NOTE | 2021-11-16 08:30 | NURSING ---
PCU OBS [facility] NEW ONSET ATRIAL FIBULATION
--- NOTE | 2021-11-16 08:50 | NURSING ---
CALLED [facility], TRANSFER LINE. LEFT MESSAGE ON MACHINE ABOUT PATIENT
--- NOTE | 2021-11-16 13:11 | PCM.HP.STD ---
Documented by User: Krystina Hayes NP, MUTUEL CASHIER-C 11/16/21 13:50 HPI - General General Date of Admission: 11/16/21 HPI Narrative NIDIA HICKMAN, is a 71 M who presents to the emergency room following a sleep study due to increased heart rate. Per sleep lab, heart rate fluctuating during overnight sleep study. At times, heart rate reported to go up to 130/140. Patient denies palpitations. He denies shortness of breath. Denies cough, fever, chills. Denies chest pain. He does report a sharp stabbing sensation on the left rib area occasionally. Patient denies known history of A. fib however it is documented in his chart prior. His other past medical history includes chronic heart failure with preserved ejection fraction, history of DVT, multiple myeloma, orthostatic hypotension, chronic anemia, hypertension, BPH, history of alcohol abuse, history of hepatitis C, history of trauma related to alcohol use resulting in SAH, IVH, ICH, anxiety, depression, GASTON. Patient was previously on anticoagulation for prior DVT however this was discontinued due to GI bleed as well as history of SAH/ICH. [facility] Medical History Acute deep vein thrombosis (DVT) of left lower extremity Anemia Angiodysplasia of colon Angiodysplasia of stomach Autonomic neuropathy BPH with obstruction/lower urinary tract symptoms Closed L1 vertebral fracture Closed L2 vertebral fracture Closed T11 fracture Cognitive dysfunction Colon polyps Dysphagia Essential (primary) hypertension ETOH abuse Fatty liver History of COVID-19 History of hepatitis C Idiopathic gout Iron deficiency Lumbar spinal stenosis Lytic lesion of bone on x-ray Multiple myeloma not having achieved remission Obstructive sleep apnea Orthostatic hypotension Osteopenia determined by x-ray Pancytopenia Prostatic enlargement Syncope Thrombocytopenia Thyroid nodule incidentally noted on imaging study Torn ligament Urinary (tract) obstruction Home Medications ferrous sulfate 325 mg PO DAILY 06/18/20 [History Last Taken 11/15/21] folic acid 1 mg PO DAILY 10/09/21 [History Last Taken 11/15/21] sertraline 100 mg PO DAILY 10/09/21 [History Last Taken 11/15/21] ascorbic acid (vitamin C) [Vitamin C] 500 mg PO DAILY 10/12/21 [History Last Taken 11/15/21] Emollient Combination No.72 [Eucerin Intensive Repair] 1 applic TOPICAL DAILY PRN PRN 10/25/21 [History Last Taken Unknown] calcium carbonate-vitamin D3 [Oyster Shell Calcium-Vit D3] 1 tab PO BIDCM 10/25/21 [History Last Taken 11/15/21] acetaminophen [Tylenol] 650 mg PO Q6H PRN PRN #0 tab 11/03/21 [Rx Last Taken Unknown] allopurinol 200 mg PO DAILY 30 Days #30 tab 11/03/21 [Rx Last Taken 11/15/21] magnesium chloride [Mag 64] 128 mg PO TID 30 Days #90 tab 11/03/21 [Rx Last Taken 11/15/21] potassium chloride [Klor-Con M20] 20 meq PO DAILYCM 30 Days #30 tab 11/03/21 [Rx Last Taken 11/15/21] aspirin 81 mg PO BREAKFAST 11/16/21 [History Last Taken 11/15/21] gabapentin 200 mg PO TID 11/16/21 [History Last Taken 11/15/21] mirtazapine 15 mg PO QHS 11/16/21 [History Last Taken 11/15/21] pantoprazole 40 mg PO BID 11/16/21 [History Last Taken 11/15/21] tamsulosin 0.4 mg PO QHS 11/16/21 [History Last Taken 11/15/21] Allergy/AdvReac Type Severity Reaction Status Date / Time No Known Allergies Allergy Verified 10/09/21 10:50 Family History Mother Heart disease Hypertension Father Hypertension Surgical History History of bunionectomy History of transurethral resection of prostate Social History household members: spouse Smoking Status: Never smoker alcohol intake: current alcohol intake frequency: 3 or more drinks per day substance use type: does not use ROS Constitutional Constitutional: Denies change in weight, chills, fatigue, fever(s) or weakness Cardiovascular Cardiovascular: Denies chest pain, edema, lightheadedness, palpitations or syncope Respiratory/Chest Respiratory/Chest: Denies cough, dyspnea, productive cough, shortness of breath at rest, shortness of breath with exertion or wheezing Gastrointestinal Gastrointestinal: Denies abdominal pain, constipation, diarrhea, nausea or vomiting Genitourinary Genitourinary: Denies burning urination, difficulty urinating, dysuria, hematuria, urinary frequency, urinary incontinence or urinary urgency Musculoskeletal Musculoskeletal: Denies back pain, joint pain or muscle weakness Integumentary Integumentary: Denies erythema, lesions, rash or wounds Neurologic Neurologic: Denies abnormal speech, confusion, dizziness, focal weakness, numbness, paresthesias, seizure-like activity or syncope Psychiatric Psychiatric: Denies anxiety or depression Hematologic/Lymphatic Hematologic/Lymphatic: Denies anemia, easy bleeding or easy bruising Allergic/Immunologic Allergic/Immunologic: Denies hives or asthma Vital Signs Vital Signs Vital Signs: 11/16/21 07:00 11/16/21 08:00 11/16/21 09:00 Temperature Temperature Source Pulse Rate 100 95 99 Respiratory Rate 27 H Respiratory Effort Respiratory Depth Respiratory Pattern Blood Pressure 117/59 L 136/92 H 135/88 H Blood Pressure Mean 78 106 103 Blood Pressure Source Blood Pressure Position Blood Pressure Location Pulse Ox 97 Oxygen Delivery Method 11/16/21 09:43 11/16/21 10:15 11/16/21 10:16 Temperature 98.0 F 97.9 F Temperature Source Temporal Oral Pulse Rate 101 H 106 H 105 H Respiratory Rate 13 14 Respiratory Effort Respiratory Depth Respiratory Pattern Blood Pressure 136/79 H 130/78 H Blood Pressure Mean 98 95 Blood Pressure Source Monitor Blood Pressure Position Semi-Fowlers Blood Pressure Location Right Arm Pulse Ox 97 92 Oxygen Delivery Method Room Air Room Air 11/16/21 10:30 11/16/21 11:00 11/16/21 12:00 Temperature Temperature Source Pulse Rate 107 H 101 H Respiratory Rate 20 H 15 Respiratory Effort Normal Non-Labored Respiratory Depth Normal Respiratory Pattern Normal Blood Pressure 107/79 119/62 Blood Pressure Mean 88 81 Blood Pressure Source Monitor Monitor Blood Pressure Position Semi-Fowlers Semi-Fowlers Blood Pressure Location Right Arm Right Arm Pulse Ox 95 95 Oxygen Delivery Method Room Air Room Air Room Air 11/16/21 13:00 Temperature Temperature Source Pulse Rate 102 H Respiratory Rate 19 H Respiratory Effort Respiratory Depth Respiratory Pattern Blood Pressure 105/50 L Blood Pressure Mean 68 Blood Pressure Source Monitor Blood Pressure Position Semi-Fowlers Blood Pressure Location Right Arm Pulse Ox 94 Oxygen Delivery Method Room Air Weight Weight: 193 lb 1.999 oz Body Mass Index (BMI) 26.2 Physical Exam Const alert, oriented x3 and no apparent distress Orientation / Consciousness: awake, oriented to person, oriented to place and oriented to time HEENT normocephalic and moist oral mucous membranes Eyes PERRL, EOMs intact bilaterally and conjunctivae normal Neck no lymphadenopathy Resp normal respiratory effort and clear to auscultation bilaterally Cardio no murmurs Cardio Narrative: A. fib with variable rate Peripheral Pulses: pulses 2+ throughout GI normal to inspection, nondistended, normoactive bowel sounds, non-tender and non-distended Extremity normal to inspection Skin no rashes or lesions noted Lesions: no lesions Rashes: no rashes Trauma: no lacerations or abrasions Neuro CN's II-XII intact bilaterally, no focal motor deficits, no sensory deficits noted and deep tendon reflexes 2+ bilaterally Psych mental status grossly normal and affect normal Results Lab / Micro Data Result Diagrams: 11/16/21 03:12 11/16/21 03:12 Labs: Laboratory Results - last 24 hr 11/16/21 03:12: Sodium 140, Potassium 3.5, Chloride 111 H, Carbon Dioxide 23.0, Anion Gap 6, BUN 20 H, Creatinine 0.87, Est GFR (MDRD) Af Amer 112, Est GFR (MDRD) Non-Af 92, BUN/Creatinine Ratio 23.0 H, Glucose 113 H, Calcium 8.3 L, Magnesium 1.5 L, Troponin I High Sens 10, TSH 2.43 11/16/21 03:12: WBC 6.7, RBC 2.89 L, Hgb 8.3 L, Hct 26.9 L, MCV 93.1, MCH 28.7, MCHC 30.9 L, RDW Std Deviation 59.1 H, RDW Coeff of [place] 17.3 H, Plt Count 192, MPV 9.2, Immature Gran % (Auto) 0.400, Neut % (Auto) 54.4, Lymph % (Auto) 32.9, Reynolds % (Auto) 9.5, Eos % (Auto) 2.5, Baso % (Auto) 0.3, Absolute Neuts (auto) 3.7, Absolute Lymphs (auto) 2.21, Nucleated RBC % 0 11/16/21 03:12: PT 15.5 H, INR 1.3, APTT 86.6 H 11/16/21 03:12: B-Natriuretic Peptide 208.0 H 11/16/21 06:25: Procalcitonin 0.15 H Radiology Impression Chest CTA 11/16/21 03:40 IMPRESSION: No pulmonary embolus or thoracic aortic dissection. Small bilateral pleural effusions with left lower lobe opacity, the latter of which may represent pneumonia. Coronary artery calcifications. Electronically Signed: Jonathan Delarosa MD at 4:33 EDT Reading Location ID and State: [place] / , Service support , Assessment & Plan Assessment/Plan (1) Atrial fibrillation with RVR: PLAN: 1. Atrial fibrillation with RVR-patient has documented history of A. fib however he states he is not aware of this. Placed on Cardizem drip. Mag replaced. K, TSH normal. Troponin negative. Echo May 2021 demonstrated an EF of 70%. Patient states he has not followed with cardiology in 15 years. Will request consult for rate control as well as ongoing outpatient follow-up. 2. Chronic diastolic heart failure-echocardiogram 05/28/2021 demonstrated an EF of 70%, RVSP estimated to be 44 mmHg. 3. History of DVT-completed treatment. Anticoagulation discontinued due to previous GI bleed and history of SAH/ICH. 4. Multiple myeloma- follows with Dr. Brunson. Considered in remission per patient. Continue outpatient follow-up 5. Orthostatic hypotension-history of chronic orthostatic hypotension, previously on midodrine. 6. Chronic anemia-stable. 7. Hypertension-no longer on regimen. 8. BPH with history of TURP-on Flomax. 9. History of alcohol abuse-in remission for 2 months per . 10. History of hepatitis C 11. History of trauma related to alcohol use-with SAH, IVH, ICH-requiring extended hospitalization/rehab. 12. Anxiety/depression-on sertraline. 13. GASTON-underwent sleep study. Previously noncompliant with CPAP. Continue outpatient follow-up. DVT prophylaxis-Lovenox subcu This patient was seen by JARETT Fernandez under the supervision of Dr. Talbot. Time spent examining patient, reviewing data and subsequent management of care: 18 Minutes Documented by User: Dr. Dorothy Talbot MD 11/16/21 16:44 HPI - General General Date of Admission: 11/16/21 PFSH Medical History Acute deep vein thrombosis (DVT) of left lower extremity Anemia Angiodysplasia of colon Angiodysplasia of stomach Autonomic neuropathy BPH with obstruction/lower urinary tract symptoms Closed L1 vertebral fracture Closed L2 vertebral fracture Closed T11 fracture Cognitive dysfunction Colon polyps Dysphagia Essential (primary) hypertension ETOH abuse Fatty liver History of COVID-19 History of hepatitis C Idiopathic gout Iron deficiency Lumbar spinal stenosis Lytic lesion of bone on x-ray Multiple myeloma not having achieved remission Obstructive sleep apnea Orthostatic hypotension Osteopenia determined by x-ray Pancytopenia Prostatic enlargement Syncope Thrombocytopenia Thyroid nodule incidentally noted on imaging study Torn ligament Urinary (tract) obstruction Home Medications ferrous sulfate 325 mg PO DAILY 06/18/20 [History Last Taken 11/15/21] folic acid 1 mg PO DAILY 10/09/21 [History Last Taken 11/15/21] sertraline 100 mg PO DAILY 10/09/21 [History Last Taken 11/15/21] ascorbic acid (vitamin C) [Vitamin C] 500 mg PO DAILY 10/12/21 [History Last Taken 11/15/21] Emollient Combination No.72 [Eucerin Intensive Repair] 1 applic TOPICAL DAILY PRN PRN 10/25/21 [History Last Taken Unknown] calcium carbonate-vitamin D3 [Oyster Shell Calcium-Vit D3] 1 tab PO BIDCM 10/25/21 [History Last Taken 11/15/21] acetaminophen [Tylenol] 650 mg PO Q6H PRN PRN #0 tab 11/03/21 [Rx Last Taken Unknown] allopurinol 200 mg PO DAILY 30 Days #30 tab 11/03/21 [Rx Last Taken 11/15/21] magnesium chloride [Mag 64] 128 mg PO TID 30 Days #90 tab 11/03/21 [Rx Last Taken 11/15/21] potassium chloride [Klor-Con M20] 20 meq PO DAILYCM 30 Days #30 tab 11/03/21 [Rx Last Taken 11/15/21] aspirin 81 mg PO BREAKFAST 11/16/21 [History Last Taken 11/15/21] gabapentin 200 mg PO TID 11/16/21 [History Last Taken 11/15/21] mirtazapine 15 mg PO QHS 11/16/21 [History Last Taken 11/15/21] pantoprazole 40 mg PO BID 11/16/21 [History Last Taken 11/15/21] tamsulosin 0.4 mg PO QHS 11/16/21 [History Last Taken 11/15/21] Allergy/AdvReac Type Severity Reaction Status Date / Time No Known Allergies Allergy Verified 10/09/21 10:50 Family History Mother Heart disease Hypertension Father Hypertension Surgical History History of bunionectomy History of transurethral resection of prostate Social History household members: spouse Smoking Status: Never smoker alcohol intake: current alcohol intake frequency: 3 or more drinks per day substance use type: does not use Results Lab / Micro Data Result Diagrams: 11/16/21 03:12 11/16/21 03:12 Charges/Coding Addendum Addendum: History of multiple myeloma, in remission, history of intracranial hemorrhage, recent history of GI bleed,This patient was seen in conjunction with Krystina Hayes NP. I have independently interviewed and examined the patient and reviewed pertinent historical, laboratory, and other data. I have reviewed her note and concur with her documentation 71-year-old male multiple comorbidities with past medical history of multiple myeloma in remission, history of intracranial hemorrhage, history of heart failure with preserved EF, recent history of GI bleed, off anticoagulation account of GI bleed who comes in with elevated heart rate. Patient was recently discharged from the TCU and was in the sleep lab last night for sleep study when he was found to have irregular heartbeat. In the ED, his EKG has been sinus tach/SVT/atrial fibrillation. Patient was seen with his at the bedside. He denied any new complaints. Denied any chest pain or dizziness or palpitations. He denies any history of chronic atrial fibrillation or pauses my atrial fibrillation. In the ED showed blood pressure 113/70, heart rate was in the upper 100s, on Cardizem drip, SPO2 was 92% on room air, temperature 99.7 Physical Exam: Gen: Comfortable, not pale, not jaundiced, CVS:HS I +II, regular, no murmurs RESP: CTA GI: BS present and normal, soft, nontender, no palpable organs EXT: Generalized edema, anasarca Labs: WBC count 6.7, hemoglobin is 8.3, platelets 192, INR is 1.3, sodium is 140, potassium 3.5, chloride 1 1, bicarbonate 23, BUN 20, creatinine 0.87 Magnesium is 1.5, BNP appears 208, procalcitonin 0.15, TSH is 2.43 Assessment: 1. A. fib with RVR, newly diagnosed per patient 2. Chronic diastolic heart failure, EF 70% 3. Recent GI bleed, off anticoagulation 4. History of intracranial hemorrhage 5. History of alcohol abuse 6. BPH 7. Hypertension 8. Multiple myeloma in remission Plan: Cardiology consult Continue on Cardizem drip Continue off anticoagulation Continue to monitor vitals CODE STATUS?full code I discussed and explained in details the various types of CODE STATUS-full code, DNR CCA, DNR CC. Patient chose to be full code and wants everything done to keep him alive. Time spent discussing CODE STATUS 16minutes Time spent taking patient's history, physically examining him, coordinating patient's care, discussing with nursin minutes Visit Charges Inpatient E&M: 52605 Init Hosp L3
[2021-11-16] MEDS: 0.9% Saline Lock 10 ML Syringe IV ×2 (13:33→21:16)
[2021-11-16] MEDS: Enoxaparin 40 MG/0.4 ML Syringe SC (13:47)
[2021-11-16] MEDS: Calcium Carb/Vitamin D 1 TABLET Tablet PO (17:44)
--- NOTE | 2021-11-16 18:51 | PCM.CONS.C ---
Assessment & Plan Assessment/Plan (1) Atrial fibrillation with RVR: PLAN: The patient was evaluated by the [facility] hospital staff and the [facility] emergency department. He was diagnosed with atrial fibrillation with RVR. The emergency department cardiac rhythm strips appear to be unavailable for review at this time. He was subsequently placed in the PCU and placed on IV diltiazem. At the present time he appears to be in sinus rhythm. At the moment he will continue to be monitored. He is undergone cardiac enzyme evaluation which was negative. He underwent ECGs which demonstrated no acute ECG changes other than concerns of findings potentially compatible with a supraventricular tachycardia. He has had a previous transthoracic echocardiogram as noted. He is also undergone radiologic evaluation based upon his history of thromboembolic disease and chest pain which demonstrated no evidence of pulmonary thromboembolic disease or great vessel disease. Of note it did demonstrate coronary artery calcification. This would raise the concern as to whether or not he does have underlying CAD although his symptoms of chest discomfort appear to be atypical with respect to this diagnosis. At the moment with respect to concerns of his cardiac dysrhythmia an attempt will be made to change his IV diltiazem to oral diltiazem. He is not thought to be an ideal candidate for long-term oral systemic anticoagulant therapy based upon his multiple comorbidities as noted. (2) SVT (supraventricular tachycardia): PLAN: His ECG available for review suggests underlying supraventricular tachycardia. Again he will continue to be monitored. He will continue noninvasive cardiovascular evaluation. He will continue medical therapy and attempt to alter his IV diltiazem to oral diltiazem. Of note per his previous cardiovascular outpatient visit he was noted to be on oral diltiazem therapy at that time. (3) Chest pain, unspecified: PLAN: He does have intermittent sharp chest discomfort in the lower left chest area. This appears to be an atypical discomfort and appearing more so compatible with a pleuritic discomfort as this occurs with inspiration. Again he has undergone radiologic studies it is demonstrated no acute pulmonary condition. From a cardiac standpoint it appears this discomfort is less likely related to underlying CAD. However, his chest CT scan did comment on coronary calcification and thus based upon his other diagnosis of cardiac dysrhythmias it may not be unreasonable to further evaluate him for any possibility of CAD/myocardial ischemia as part of his overall cardiovascular evaluation with a pharmacologic stress nuclear imaging study. (4) Chronic deep vein thrombosis (DVT): PLAN: He has had a DVT. He states he is no longer on his anticoagulant therapy based upon concerns of his multiple comorbidities and the risk of hemorrhage. (5) Anemia: PLAN: He appears to be chronically anemic. He states he has been evaluated by Dr. Brunson of [facility] hematology oncology for this diagnosis. His anemia may make it challenging to proceed with anticoagulant therapy especially for any length of time. (6) GI bleed: PLAN: He has a history of GI bleed. There is no report of active GI bleeding at this time. However, this is being taken into consideration with concerns of anticoagulant therapy. (7) Multiple myeloma: PLAN: He has undergone evaluation by [facility] hematology oncology for this diagnosis. He states he underwent bone marrow aspirate/biopsy to assist in making the diagnosis. (8) Obstructive sleep apnea: PLAN: He does have a history of GASTON. This can contribute to various cardiac dysrhythmias. He will need continue evaluation care per his other physicians for his GASTON. Addt'l Comments The patient's case was discussed and reviewed with the patient and Krystina Hayes CNP, of the [facility] staff. This note was generated using a voice recognition system and there may be incorrect words, spelling or punctuation that were not noted when reviewing the office note prior to saving. HPI Consult Data Date of Consult: 11/16/21 HPI Narrative HPI Narrative: NIDIA HICKMAN, is a 71 year old white male who presents for cardiovascular consultation based upon concerns of paroxysmal atrial fibrillation. It appears the patient had an outpatient cardiovascular visit with Dr. Carter on 03-13-2019 for concerns of syncope. At that time, per the outpatient cardiovascular note there did not appear to be any comment of atrial fibrillation. The patient was undergoing an GASTON sleep study. He was reported as developing episodes of elevated heart rates. Per the medical records it appeared heart rates were reported as high as 130 to 140 bpm. He was then transferred to the [facility] emergency department for further evaluation and care. Per their report he was noted to have evidence of an underlying tachycardia with ventricular rates of 170 bpm without obvious P wave formation and slight irregularity consistent with atrial fibrillation. Based upon a history of DVT he underwent a chest CTA which was reported as negative for evidence of any acute thromboembolic disease/great vessel disease. He was then treated medically with IV diltiazem and subsequently referred to internal medicine to the PCU for further evaluation and care. He states he does get a sharp left lower chest discomfort when he attempts to take a deep breath. He denies other forms of chest discomfort. He denies any acute respiratory related issues. There has been no obvious report from his standpoint of recent near-syncope or syncope. He has had multiple comorbidities including anemia, GI bleed, multiple myeloma, [employer] trauma/hemorrhagic events, and a DVT. Apparently he was treated cautiously for his DVT for period of time to minimize the risk of any adverse hemorrhagic events. He is currently without his anticoagulant therapy. He did have ECGs performed which appeared to demonstrate underlying sinus rhythm/sinus tachycardia as well as 1 ECG that demonstrated a relatively regular narrow complex tachycardia potentially compatible with an underlying SVT. While on IV diltiazem he appears to be in sinus rhythm. It is noted that his rate does fluctuate and elevate in sinus rhythm to sinus tachycardia. [facility] Medical History (Updated 11/16/21 @ 19:[address] Micky Verdin MD) Acute deep vein thrombosis (DVT) of left lower extremity Anemia Anemia Angiodysplasia of colon Angiodysplasia of stomach Autonomic neuropathy BPH with obstruction/lower urinary tract symptoms Chest pain, unspecified Closed L1 vertebral fracture Closed L2 vertebral fracture Closed T11 fracture Cognitive dysfunction Colon polyps Dysphagia Essential (primary) hypertension ETOH abuse Fatty liver GI bleed History of COVID-19 History of hepatitis C Idiopathic gout Iron deficiency Lumbar spinal stenosis Lytic lesion of bone on x-ray Multiple myeloma not having achieved remission Obstructive sleep apnea Orthostatic hypotension Osteopenia determined by x-ray Pancytopenia Prostatic enlargement SVT (supraventricular tachycardia) Syncope Thrombocytopenia Thyroid nodule incidentally noted on imaging study Torn ligament Urinary (tract) obstruction Home Medications ferrous sulfate 325 mg PO DAILY 06/18/20 [History Last Taken 11/15/21] folic acid 1 mg PO DAILY 10/09/21 [History Last Taken 11/15/21] sertraline 100 mg PO DAILY 10/09/21 [History Last Taken 11/15/21] ascorbic acid (vitamin C) [Vitamin C] 500 mg PO DAILY 10/12/21 [History Last Taken 11/15/21] Emollient Combination No.72 [Eucerin Intensive Repair] 1 applic TOPICAL DAILY PRN PRN 10/25/21 [History Last Taken Unknown] calcium carbonate-vitamin D3 [Oyster Shell Calcium-Vit D3] 1 tab PO BIDCM 10/25/21 [History Last Taken 11/15/21] acetaminophen [Tylenol] 650 mg PO Q6H PRN PRN #0 tab 11/03/21 [Rx Last Taken Unknown] allopurinol 200 mg PO DAILY 30 Days #30 tab 11/03/21 [Rx Last Taken 11/15/21] magnesium chloride [Mag 64] 128 mg PO TID 30 Days #90 tab 11/03/21 [Rx Last Taken 11/15/21] potassium chloride [Klor-Con M20] 20 meq PO DAILYCM 30 Days #30 tab 11/03/21 [Rx Last Taken 11/15/21] aspirin 81 mg PO BREAKFAST 11/16/21 [History Last Taken 11/15/21] gabapentin 200 mg PO TID 11/16/21 [History Last Taken 11/15/21] mirtazapine 15 mg PO QHS 11/16/21 [History Last Taken 11/15/21] pantoprazole 40 mg PO BID 11/16/21 [History Last Taken 11/15/21] tamsulosin 0.4 mg PO QHS 11/16/21 [History Last Taken 11/15/21] Allergy/AdvReac Type Severity Reaction Status Date / Time No Known Allergies Allergy Verified 10/09/21 10:50 Family History Mother Heart disease Hypertension Father Hypertension Surgical History History of bunionectomy History of transurethral resection of prostate Social History household members: spouse Smoking Status: Never smoker alcohol intake: current alcohol intake frequency: 3 or more drinks per day substance use type: does not use ROS Constitutional Constitutional: Reports as per HPI Eyes Eyes: Reports as per HPI ENT HEENT: Reports as per HPI Cardiovascular Cardiovascular: Reports chest pain Respiratory/Chest Respiratory/Chest: Reports as per HPI Gastrointestinal Gastrointestinal: Reports as per HPI Genitourinary Genitourinary: Reports as per HPI Musculoskeletal Musculoskeletal: Reports as per HPI Integumentary Integumentary: Reports as per HPI Neurologic Neurologic: Reports as per HPI Psychiatric Psychiatric: Reports as per HPI Physical Exam Const alert, oriented x3 and no apparent distress Orientation / Consciousness: awake HEENT normocephalic, head/scalp atraumatic and hearing grossly normal bilaterally Eyes PERRL, EOMs intact bilaterally and conjunctivae normal Neck full ROM, supple and no JVD Resp clear to auscultation bilaterally Cardio regular rhythm, S1 normal heart sound and S2 normal heart sound Rate: tachycardic GI normal to inspection, nondistended, normoactive bowel sounds Extremity no pedal edema Skin no rashes or lesions noted Neuro oriented x3 and moves all extremities Psych mental status grossly normal Risk Stratification Risk Stratification Applicable: No Objective Data Vital Signs: Vital Signs Temp Pulse Resp BP Pulse Ox 99.7 F H 108 H 19 H 110/69 94 11/16/21 16:00 11/16/21 18:00 11/16/21 18:00 11/16/21 18:00 11/16/21 18:00 Oxygen Delivery Method Room Air Weight: 193 lb 1.999 oz Body Mass Index (BMI) 26.2 Intake & Output: Intake and Output for Last 24 Hours 11/14/21 11/15/21 11/16/21 23:59 23:59 23:59 Intake Total 834.33 / 834.33 Output Total 200 / 200 Balance 634.33 / 634.33 Lab / Micro Data Result Diagrams: 11/16/21 03:12 11/16/21 03:12 Labs: Laboratory Results - last 24 hr 11/16/21 03:12: Sodium 140, Potassium 3.5, Chloride 111 H, Carbon Dioxide 23.0, Anion Gap 6, BUN 20 H, Creatinine 0.87, Est GFR (MDRD) Af Amer 112, Est GFR (MDRD) Non-Af 92, BUN/Creatinine Ratio 23.0 H, Glucose 113 H, Calcium 8.3 L, Magnesium 1.5 L, Troponin I High Sens 10, TSH 2.43 11/16/21 03:12: WBC 6.7, RBC 2.89 L, Hgb 8.3 L, Hct 26.9 L, MCV 93.1, MCH 28.7, MCHC 30.9 L, RDW Std Deviation 59.1 H, RDW Coeff of [place] 17.3 H, Plt Count 192, MPV 9.2, Immature Gran % (Auto) 0.400, Neut % (Auto) 54.4, Lymph % (Auto) 32.9, [place] % (Auto) 9.5, Eos % (Auto) 2.5, Baso % (Auto) 0.3, Absolute Neuts (auto) 3.7, Absolute Lymphs (auto) 2.21, Nucleated RBC % 0 11/16/21 03:12: PT 15.5 H, INR 1.3, APTT 86.6 H 11/16/21 03:12: B-Natriuretic Peptide 208.0 H 11/16/21 06:25: Procalcitonin 0.15 H Cardiology Labs/Tests 11/16/21 03:12: Sodium 140, Potassium 3.5, Chloride 111 H, Carbon Dioxide 23.0, Anion Gap 6, BUN 20 H, Creatinine 0.87, Est GFR (MDRD) Af Amer 112, Est GFR (MDRD) Non-Af 92, BUN/Creatinine Ratio 23.0 H, Glucose 113 H, Calcium 8.3 L, Magnesium 1.5 L 11/16/21 03:12: WBC 6.7, RBC 2.89 L, Hgb 8.3 L, Hct 26.9 L, MCV 93.1, MCH 28.7, MCHC 30.9 L, Plt Count 192, MPV 9.2, Immature Gran % (Auto) 0.400, Neut % (Auto) 54.4, Lymph % (Auto) 32.9, [place] % (Auto) 9.5, Eos % (Auto) 2.5, Baso % (Auto) 0.3, Absolute Neuts (auto) 3.7, Nucleated RBC % 0 11/16/21 03:12: PT 15.5 H, INR 1.3, APTT 86.6 H 11/16/21 03:12: B-Natriuretic Peptide 208.0 H Rhythm: Cardiac rhythm as noted above EKG: ECG as noted above ECHO: 05-27-2021 Interpretation Summary Left ventricular systolic function is normal. The estimated ejection fraction is 70 %. The global longitudinal strain = -21 % (normal). Apical false tendon noted. The left atrium is mildly enlarged. Mild (1+) mitral valve insufficiency. Mild tricuspid valve insufficiency. Mild focal aortic valve calcification. Right ventricular systolic pressure estimated to be 44 mmHg. Diastolic function is indeterminate. Radiography Diagnostic Testing: Radiology Impression Chest CTA 11/16/21 03:40 IMPRESSION: No pulmonary embolus or thoracic aortic dissection. Small bilateral pleural effusions with left lower lobe opacity, the latter of which may represent pneumonia. Coronary artery calcifications. Electronically Signed: Jonathan Delarosa MD at 4:33 EDT Reading Location ID and State: [id number] / , Service support ,
[2021-11-16] MEDS: dilTIAZem CD 240 MG Capsule PO (19:00)
[2021-11-16] MEDS: Pantoprazole Sodium 40 MG Tablet PO (21:15)
[2021-11-16] MEDS: Mirtazapine 15 MG Tablet PO (21:15)
[2021-11-16] MEDS: Magnesium Chloride 64 MG Delay Rel.Tablet 128 MG PO (21:16)
[2021-11-16] MEDS: Tamsulosin HCl 0.4 MG Capsule PO (21:16)
[2021-11-16] MEDS: Gabapentin 100 MG Capsule 200 MG PO (21:16)
[2021-11-17 02:34] VITALS: BP 129/75; PULSE 101; RESP 18; TEMP 37.2; O2SAT 97
[2021-11-17 03:00] VITALS: PULSE 101
[2021-11-17 05:39] LABS: Absolute Lymphocyte Count 1.75 X10^3/uL (0.83-4.51); Basophil# 0.01 X10^3/uL; Basophil% 0.2 % (0-1); Eosinophil# 0.15 X10^3/uL; Eosinophils% 2.3 % (0-5); Hematocrit 25.4 % (40-54); Hemoglobin 8.2 g/dL (13.0-16.5); Lymphocyte # 1.75 X10^3/ul (0.83-4.51); Lymphocyte % 26.8 % (19-41); Mean Corp Hgb Conc 32.3 g/dL (32-36); Mean Corpuscular Hgb 28.8 pg (27.0-32.0); Mean Corpuscular Volume 89.1 fL (80-94); Monocyte# 0.56 X10^3/uL; Monocyte% 8.6 % (0-10); NRBC Flagged by Analyzer 0 % (0-5); Neutrophil # 4.04 X10^3/uL (2.7-7.7); Neutrophil % 61.8 % (47-70); Platelet Count 186 K/mm3 (150-450); RBC Distribution Width CV 17.2 % (11.6-14.6); RBC Distribution Width SD 55.3 fl (35.1-43.9); Red Blood Count 2.85 M/mm3 (4.6-6.2); White Blood Count 6.5 K/mm3 (4.4-11.0)
--- NOTE | 2021-11-17 05:55 | EKG12_ITS ---
Test Reason : AM EKG Blood Pressure : / mmHG Vent. Rate : 102 BPM Atrial Rate : 102 BPM P-R Int : 198 ms QRS Dur : 084 ms QT Int : 362 ms P-R-T Axes : 000 -01 064 degrees QTc Int : 471 ms Sinus tachycardia Otherwise normal ECG No previous ECGs available Confirmed by NELIA QUIROS, FLORINDA ([id number]), desk editor PRABHJOT NARAYAN ([id number]) on 11/18/2021 1:44:51 PM Referred By: Confirmed By:NADER PICKENS MD
[2021-11-17 06:02] LABS: ALB/GLOB Ratio 0.7 RATIO (0.9-2.4); AST(SGOT) 13 U/L (15-37); Alanine Aminotransfer ALT/SGPT 10 U/L (16-61); Albumin, Serum 2.4 g/dL (3.2-5.0); Alkaline Phosphatase 93 U/L (45-117); Anion Gap 6 (5-15); BUN 14 mg/dL (7-18); Calcium,Total 8.6 mg/dL (8.5-10.1); Chloride 108 mmol/L (98-107); Creatinine, Serum 0.78 mg/dL (0.70-1.30); EST Glomerular Filtration Rate 105 mL/min (>60); Est Glom Filt Rate - Afr Amer 127 mL/min (>60); Estimated Creatinine Clearance 76.52 ml/min; Globulin 3.5 g/dL (2.2-4.2); Glucose 105 mg/dL (74-106); Potassium 3.6 mmol/L (3.5-5.1); Protein, Total 5.9 g/dL (6.4-8.2); Sodium Level 138 mmol/L (136-145)
[2021-11-17 06:10] VITALS: BP 122/77; PULSE 101; RESP 16; TEMP 36.7; O2SAT 97
[2021-11-17] MEDS: Magnesium Chloride 64 MG Delay Rel.Tablet 128 MG PO ×2 (06:15→12:24)
[2021-11-17] MEDS: Aspirin E.C. 81 MG Tablet PO (06:15)
[2021-11-17] MEDS: Gabapentin 100 MG Capsule 200 MG PO ×2 (06:16→12:42)
[2021-11-17 07:00] VITALS: PULSE 100
--- NOTE | 2021-11-17 10:56 | STRESSREP ---
Stress Test Report Date: 11-17-2021 Procedure: Pharmacologic stress nuclear imaging study Indications: Chest pain; cardiac dysrhythmia: PSVT/PAF Consent: Per the patient Procedure: The patient underwent pharmacologic (Regadenoson 0.4mg ) evaluation with a peak heart rate of 126 beats per minute (83%predicted maximal heart rate) and a peak blood pressure of 122/64 mmHg. The baseline ECG demonstrated sinus tachycardia. The peak pharmacologic ECG demonstrated no obvious ECG changes. There was a rare PACs/PVC during recovery. There was no complaint of chest discomfort during pharmacologic infusion or recovery. The examination was discontinued secondary to completion of protocol. Impression: 1. Pharmacologic (Regadenoson) evaluation 2. Peak pharmacologic ECG with no obvious ECG changes. 3. There was a rare PAC/PVC during recovery. 4. Nuclear images pending Myocardial perfusion imaging study: Technique: The patient was injected with 11.0 millicuries of technetium 99m Cardiolite and subsequently rest SPECT Cardiolite nuclear imaging was obtained in the horizontal long, vertical long, and short axis views. The patient underwent pharmacologic (Regadenoson) evaluation with a peak heart rate of 126 beats per minute (83% percent predicted maximal heart rate) and a peak blood pressure of 122/64 mmHg. The patient was injected with 36.0 millicuries of technetium 99m Cardiolite and subsequently stress SPECT Cardiolite nuclear imaging was obtained in the horizontal long, vertical long, and short axis views. A gated Cardiolite study at peak stress was obtained. Interpretation: Rest and stress SPECT Cardiolite nuclear imaging status post realignment, normalization, and attenuation correction demonstrate the appearance of body motion during image acquisition and on the preattenuation correction images the appearance of an area of diminished tracer uptake in portions of the basal to mid inferior segments, which is not reproduced on the post attenuation correction images, and on the post attenuation correction images the appearance at rest of an area of diminished tracer uptake in portions of the mid to distal anteroseptal segments which appears to improve and/or normalize following stress. There is end systolic thickening and brightening. The gated Cardiolite study demonstrates myocardial thickening and inward wall motion. The reported LVEF is 49%. Impression: 1. Rest and stress SPECT Cardiolite imaging demonstrate body motion during image acquisition and myocardial perfusion changes, as noted above, appearing compatible with soft tissue attenuation/artifact/shifting soft tissue attenuation/artifact with no myocardial perfusion changes considered diagnostic for associated stress-induced myocardial ischemia. 2. The gated Cardiolite study reports an LVEF of 49%. This note was generated with [id number] software. It may contain incorrect words, spelling, and punctuation that were not noted in checking the note before signing.
[2021-11-17 10:59] VITALS: PULSE 91
[2021-11-17 12:00] VITALS: BP 104/77; PULSE 104; RESP 16; TEMP 36.7; O2SAT 98
[2021-11-17] MEDS: Potassium Chloride Oral Tablet 20 MEQ PO (12:24)
[2021-11-17] MEDS: Ferrous Sulfate 325 MG Tablet PO (12:24)
[2021-11-17] MEDS: Ascorbic Acid 500 MG Tablet PO (12:25)
[2021-11-17] MEDS: Folic Acid 1 MG Tablet PO (12:25)
[2021-11-17] MEDS: Enoxaparin 40 MG/0.4 ML Syringe SC (12:26)
[2021-11-17] MEDS: Sertraline 100 MG Tablet PO (12:26)
[2021-11-17] MEDS: Allopurinol 100 MG Tablet 200 MG PO (12:26)
[2021-11-17] MEDS: Pantoprazole Sodium 40 MG Tablet PO (12:26)
[2021-11-17] MEDS: Calcium Carb/Vitamin D 1 TABLET Tablet PO (12:26)
[2021-11-17] MEDS: dilTIAZem CD 240 MG Capsule PO (12:27)
--- NOTE | 2021-11-17 13:24 | PCM.DC ---
Discharge Instructions Diet Discharge Diet: Light diet - advance as tolerated and 2000 mg Sodium Diet Activity Discharge Activity: Return to Normal Activity Dressing / Incision Call your doctor if you observe: Shortness of breath, Dizziness, Chest pain and Increased palpitations (irregular heartbeat) Follow Up Care Test Results: Test results from this visit will be discussed in further detail at your follow-up appointment, if applicable. Discharge Plan Admission Admit Date/Time: 11/16/21 08:20 Primary Reason for Your Visit: Atrial fibrillation Attending Provider: Dorothy Talbot Primary Care Provider: Onur Garcia Consulting Providers: Micky Verdin Discharge Orders/Prescriptions Prescriptions: New diltiazem HCl 240 mg Capsule,Extended Release 24hr 240 mg PO DAILY 30 Days Qty: 30 RF: 0 levofloxacin 750 mg tablet 750 mg PO DAILY Qty: 7 RF: 0 Continued ferrous sulfate 325 MG tablet 325 mg PO DAILY RF: 0 sertraline 100 mg Tablet 100 mg PO DAILY RF: 0 folic acid 1 mg Tablet 1 mg PO DAILY RF: 0 ascorbic acid (vitamin C) [Vitamin C] 500 mg Tablet 500 mg PO DAILY RF: 0 calcium carbonate-vitamin D3 [Oyster Shell Calcium-Vit D3] 500 mg-5 mcg (200 unit) tablet 1 tab PO BIDCM RF: 0 Emollient Combination No.72 [Eucerin Intensive Repair] 1 applic topical DAILY PRN PRN (Reason: Dry Skin) RF: 0 acetaminophen [Tylenol] 325 mg Tablet 650 mg PO Q6H PRN PRN (Reason: PAIN 1-10) Qty: 0 RF: 0 allopurinol 100 mg tablet 200 mg PO DAILY 30 Days Qty: 30 RF: 0 potassium chloride [Klor-Con M20] 20 mEq tablet,ER particles/crystals 20 meq PO DAILYCM 30 Days Qty: 30 RF: 0 Mag 64 64 mg tablet,delayed release (DR/EC) 128 mg PO TID 30 Days Qty: 90 RF: 0 tamsulosin 0.4 mg capsule 0.4 mg PO QHS RF: 0 aspirin 81 mg tablet,delayed release (DR/EC) 81 mg PO BREAKFAST RF: 0 mirtazapine 15 mg tablet 15 mg PO QHS RF: 0 pantoprazole 40 mg tablet,delayed release (DR/EC) 40 mg PO BID RF: 0 gabapentin 100 mg capsule 200 mg PO TID RF: 0 Referrals / Follow Up: Onur Garcia MD [Primary Care Provider] - In 1 Week Micky Verdin MD [STAFF PHYSICIAN] - Within 2 Weeks (See CYTOLOGY LABORATORY MANAGER/PA) Leandra Ely NP, CYTOLOGY LABORATORY MANAGER-C [Nurse Practitioner] - See Referral Note (As scheduled 11/29/2021) Disposition Disposition (needs filled in before D/C Order can be placed): Home, Self Care
--- NOTE | 2021-11-17 13:50 | DS.PCM_ITS ---
Documented by User: Krystina Hayes NP, PAVING MACHINE OPERATOR-C 11/17/21 13:56 Providers Date of Admission: 11/16/21 Date of Discharge: 11/17/21 Primary Care Physician: Dr. Onur Garcia MD Consultations 11/16/21 13:41 Consult: Cardiology Routine Consulting Provider: Micky Verdin Reason for Consult: a.fib RVR EMERGENT Consult: No MD Notified: Yes Date Notified: 11/16/21 Time Notified: 13:41 Method of Notification: Text Reason For Visit: ARRHYTHMIA Diagnosis Discharge Diagnosis (1) Atrial fibrillation with RVR: Status: Acute Code(s): I48.91 - Unspecified atrial fibrillation (2) SVT (supraventricular tachycardia): Status: Acute Code(s): I47.1 - Supraventricular tachycardia (3) Chest pain, unspecified: Status: Acute Code(s): R07.9 - Chest pain, unspecified (4) Chronic deep vein thrombosis (DVT): Status: Chronic Code(s): I82.509 - Chronic embolism and thrombosis of unspecified deep veins of unspecified lower extremity (5) Anemia: Status: Acute Code(s): D64.9 - Anemia, unspecified (6) GI bleed: Status: Acute Code(s): K92.2 - Gastrointestinal hemorrhage, unspecified (7) Multiple myeloma: Status: Acute Code(s): C90.00 - Multiple myeloma not having achieved remission (8) Obstructive sleep apnea: Status: Acute Code(s): G47.33 - Obstructive sleep apnea (adult) (pediatric) Medications at Discharge Home Medications ferrous sulfate 325 mg PO DAILY 06/18/20 folic acid 1 mg PO DAILY 10/09/21 sertraline 100 mg PO DAILY 10/09/21 ascorbic acid (vitamin C) [Vitamin C] 500 mg PO DAILY 10/12/21 Emollient Combination No.72 [Eucerin Intensive Repair] 1 applic TOPICAL DAILY PRN PRN 10/25/21 calcium carbonate-vitamin D3 [Oyster Shell Calcium-Vit D3] 1 tab PO BIDCM 10/25/21 Mag 64 128 mg PO TID 30 Days #90 tab 11/03/21 acetaminophen [Tylenol] 650 mg PO Q6H PRN PRN #0 tab 11/03/21 allopurinol 200 mg PO DAILY 30 Days #30 tab 11/03/21 potassium chloride [Klor-Con M20] 20 meq PO DAILYCM 30 Days #30 tab 11/03/21 aspirin 81 mg PO BREAKFAST 11/16/21 gabapentin 200 mg PO TID 11/16/21 mirtazapine 15 mg PO QHS 11/16/21 pantoprazole 40 mg PO BID 11/16/21 tamsulosin 0.4 mg PO QHS 11/16/21 diltiazem HCl 240 mg PO DAILY 30 Days #30 cap 11/17/21 levofloxacin 750 mg PO DAILY #7 tab 11/17/21 Hospital Course Operations None Procedures Stress test Summary of Care Provided Hospital Course: Patient is a 71-year-old male admitted 11/16/2021 due to increased heart rate during sleep study. 1. Atrial fibrillation with RVR/SVT-patient has documented history of A. fib however he states he is not aware of this. EKG consistent with SVT however patient did have periods of what appeared to be A. fib on telemetry. Initially placed on Cardizem drip. Mag replaced. K, TSH normal. Troponin negative. Echo May 2021 demonstrated an EF of 70%. Patient states he has not fol lowed with cardiology in 15 years. Cardiology consulted during admission. Continue oral Cardizem. Underwent stress test which was negative for ischemia. Converted to sinus rhythm. Follow-up with cardiology in 2 weeks. 2. Chronic diastolic heart failure-echocardiogram 05/28/2021 demonstrated an EF of 70%, RVSP estimated to be 44 mmHg. 3. History of DVT-completed treatment. Anticoagulation discontinued due to previous GI bleed and history of SAH/ICH. 4. Multiple myeloma- follows with Dr. Brunson. Considered in remission per patient. Continue outpatient follow-up 5. Orthostatic hypotension-history of chronic orthostatic hypotension, previously on midodrine. 6. Chronic anemia-stable. 7. Hypertension-no longer on regimen. 8. BPH with history of TURP-on Flomax. 9. History of alcohol abuse-in remission for 2 months per . 10. History of hepatitis C 11. History of trauma related to alcohol use-with SAH, IVH, ICH-requiring extended hospitalization/rehab. 12. Anxiety/depression-on sertraline. 13. GASTON-underwent sleep study. Previously noncompliant with CPAP. Continue outpatient follow-up with pulmonary medicine as scheduled. 14. Patient reports left-sided pleuritic pain-CT with left lower lobe opacity. Afebrile, no leukocytosis. Given symptoms and CT finding, will treat empirically with 7-day course of Levaquin. Follow-up with PCP. Physical Exam Const alert, oriented x3 and no apparent distress Orientation / Consciousness: awake, oriented to person, oriented to place and oriented to time HEENT normocephalic and moist oral mucous membranes Eyes PERRL, EOMs intact bilaterally and conjunctivae normal Neck no lymphadenopathy Resp normal respiratory effort and clear to auscultation bilaterally Cardio no murmurs Cardio Narrative: Sinus rhythm Peripheral Pulses: pulses 2+ throughout GI normal to inspection, nondistended, normoactive bowel sounds, non-tender and non-distended Extremity normal to inspection Skin no rashes or lesions noted Lesions: no lesions Rashes: no rashes Trauma: no lacerations or abrasions Neuro CN's II-XII intact bilaterally, no focal motor deficits, no sensory deficits noted and deep tendon reflexes 2+ bilaterally Psych mental status grossly normal and affect normal Patient seen and examined prior to discharge. Physical assessment as noted above. Patient is stable for discharge with follow up recommendations as noted above. This patient was seen by JARETT Fernandez under the supervision of Dr. Talbot. Time spent examining patient, reviewing data and subsequent management of care: 18 Minutes Weight / BMI Weight Weight: 193 lb 1.999 oz Body Mass Index (BMI) 26.2 ABG / Lab / Microbiology Data Result Diagrams: 11/17/21 04:52 11/17/21 04:52 Laboratory: Laboratory Results - last 24 hr 11/17/21 04:52: WBC 6.5, RBC 2.85 L, Hgb 8.2 L, Hct 25.4 L, MCV 89.1, MCH 28.8, MCHC 32.3, RDW Std Deviation 55.3 H, RDW Coeff of [place] 17.2 H, Plt Count 186, MPV 9.0, Immature Gran % (Auto) 0.300, Neut % (Auto) 61.8, Lymph % (Auto) 26.8, [place] % (Auto) 8.6, Eos % (Auto) 2.3, Baso % (Auto) 0.2, Absolute Neuts (auto) 4.0, A bsolute Lymphs (auto) 1.75, Nucleated RBC % 0 11/17/21 04:52: Sodium 138, Potassium 3.6, Chloride 108 H, Carbon Dioxide 24.0, Anion Gap 6, BUN 14, Creatinine 0.78, Estim Creat Clear Calc 76.52, Est GFR (MDRD) Af Amer 127, Est GFR (MDRD) Non-Af 105, BUN/Creatinine Ratio 18.0, Glucose 105, Calcium 8.6, Total Bilirubin 0.40, AST 13 L, ALT 10 L, Alkaline Phosphatase 93, Total Protein 5.9 L, Albumin 2.4 L, Globulin 3.5, Albumin/Globulin Ratio 0.7 L D/C Instructions Discharge Diet: Light diet - advance as tolerated and 2000 mg Sodium Diet Call your doctor if you observe: Shortness of breath, Dizziness, Chest pain and Increased palpitations (irregular heartbeat) Meaningful Use Info Meaningful Use Diagnoses (Choose all that apply): None applicable Discharge Plan Admission Admit Date/Time: 11/16/21 08:20 Primary Reason for Your Visit: Atrial fibrillation Attending Provider: Dorothy Talbot Primary Care Provider: Onur Garcia Consulting Providers: Micky Verdin Discharge Orders/Prescriptions Prescriptions: New diltiazem HCl 240 mg Capsule,Extended Release 24hr 240 mg PO DAILY 30 Days Qty: 30 RF: 0 levofloxacin 750 mg tablet 750 mg PO DAILY Qty: 7 RF: 0 Continued ferrous sulfate 325 MG tablet 325 mg PO DAILY RF: 0 sertraline 100 mg Tablet 100 mg PO DAILY RF: 0 folic acid 1 mg Tablet 1 mg PO DAILY RF: 0 ascorbic acid (vitamin C) [Vitamin C] 500 mg Tablet 500 mg PO DAILY RF: 0 calcium carbonate-vitamin D3 [Oyster Shell Calcium-Vit D3] 500 mg-5 mcg (200 unit) tablet 1 tab PO BIDCM RF: 0 Emollient Combination No.72 [Eucerin Intensive Repair] 1 applic topical DAILY PRN PRN (Reason: Dry Skin) RF: 0 acetaminophen [Tylenol] 325 mg Tablet 650 mg PO Q6H PRN PRN (Reason: PAIN 1-10) Qty: 0 RF: 0 allopurinol 100 mg tablet 200 mg PO DAILY 30 Days Qty: 30 RF: 0 potassium chloride [Klor-Con M20] 20 mEq tablet,ER particles/crystals 20 meq PO DAILYCM 30 Days Qty: 30 RF: 0 Mag 64 64 mg tablet,delayed release (DR/EC) 128 mg PO TID 30 Days Qty: 90 RF: 0 tamsulosin 0.4 mg capsule 0.4 mg PO QHS RF: 0 aspirin 81 mg tablet,delayed release (DR/EC) 81 mg PO BREAKFAST RF: 0 mirtazapine 15 mg tablet 15 mg PO QHS RF: 0 pantoprazole 40 mg tablet,delayed release (DR/EC) 40 mg PO BID RF: 0 gabapentin 100 mg capsule 200 mg PO TID RF: 0 Referrals / Follow Up: Onur Garcia MD [Primary Care Provider] - In 1 Week Micky Verdin MD [STAFF PHYSICIAN] - Within 2 Weeks (See PAVING MACHINE OPERATOR/PA) Leandra Ely NP, PAVING MACHINE OPERATOR-C [Nurse Practitioner] - See Referral Note (As scheduled 11/29/2021) Disposition Disposition (needs filled in before D/C Order can be placed): Home, Self Care Documented by User: Dr. Dorothy Talbot MD 11/17/21 16:08 Providers Date of Admission: 11/16/21 Reason For Visit: ARRHYTHMIA Medications at Discharge Home Medications ferrous sulfate 325 mg PO DAILY 06/18/20 folic acid 1 mg PO DAILY 10/09/21 sertraline 100 mg PO DAILY 10/09/21 ascorbic acid (vitamin C) [Vitamin C] 500 mg PO DAILY 10/12/21 Emollient Combination No.72 [Eucerin Intensive Repair] 1 applic TOPICAL DAILY PRN PRN 10/25/21 calcium carbonate-vitamin D3 [Oyster Shell Calcium-Vit D3] 1 tab PO BIDCM 10/25/21 Mag 64 128 mg PO TID 30 Days #90 tab 11/03/21 acetaminophen [Tylenol] 650 mg PO Q6H PRN PRN #0 tab 11/03/21 allopurinol 200 mg PO DAILY 30 Days #30 tab 11/03/21 potassium chloride [Klor-Con M20] 20 meq PO DAILYCM 30 Days #30 tab 11/03/21 aspirin 81 mg PO BREAKFAST 11/16/21 gabapentin 200 mg PO TID 11/16/21 mirtazapine 15 mg PO QHS 11/16/21 pantoprazole 40 mg PO BID 11/16/21 tamsulosin 0.4 mg PO QHS 11/16/21 diltiazem HCl 240 mg PO DAILY 30 Days #30 cap 11/17/21 levofloxacin 750 mg PO DAILY #7 tab 11/17/21 ABG / Lab / Microbiology Data Result Diagrams: 11/17/21 04:52 11/17/21 04:52 Discharge Plan Admission Admit Date/Time: 11/16/21 08:20 Primary Reason for Your Visit: Atrial fibrillation Attending Provider: Dorothy Talbot Primary Care Provider: Onur Garcia Consulting Providers: Micky Verdin Discharge Orders/Prescriptions Prescriptions: New diltiazem HCl 240 mg Capsule,Extended Release 24hr 240 mg PO DAILY 30 Days Qty: 30 RF: 0 levofloxacin 750 mg tablet 750 mg PO DAILY Qty: 7 RF: 0 Continued ferrous sulfate 325 MG tablet 325 mg PO DAILY RF: 0 sertraline 100 mg Tablet 100 mg PO DAILY RF: 0 folic acid 1 mg Tablet 1 mg PO DAILY RF: 0 ascorbic acid (vitamin C) [Vitamin C] 500 mg Tablet 500 mg PO DAILY RF: 0 calcium carbonate-vitamin D3 [Oyster Shell Calcium-Vit D3] 500 mg-5 mcg (200 unit) tablet 1 tab PO BIDCM RF: 0 Emollient Combination No.72 [Eucerin Intensive Repair] 1 applic topical DAILY PRN PRN (Reason: Dry Skin) RF: 0 acetaminophen [Tylenol] 325 mg Tablet 650 mg PO Q6H PRN PRN (Reason: PAIN 1-10) Qty: 0 RF: 0 allopurinol 100 mg tablet 200 mg PO DAILY 30 Days Qty: 30 RF: 0 potassium chloride [Klor-Con M20] 20 mEq tablet,ER particles/crystals 20 meq PO DAILYCM 30 Days Qty: 30 RF: 0 Mag 64 64 mg tablet,delayed release (DR/EC) 128 mg PO TID 30 Days Qty: 90 RF: 0 tamsulosin 0.4 mg capsule 0.4 mg PO QHS RF: 0 aspirin 81 mg tablet,delayed release (DR/EC) 81 mg PO BREAKFAST RF: 0 mirtazapine 15 mg tablet 15 mg PO QHS RF: 0 pantoprazole 40 mg tablet,delayed release (DR/EC) 40 mg PO BID RF: 0 gabapentin 100 mg capsule 200 mg PO TID RF: 0 Referrals / Follow Up: Onur Garcia MD [Primary Care Provider] - In 1 Week Micky Verdin MD [STAFF PHYSICIAN] - Within 2 Weeks (See PAVING MACHINE OPERATOR/PA) Leandra Ely NP, PAVING MACHINE OPERATOR-C [Nurse Practitioner] - See Referral Note (As scheduled 11/29/2021) Disposition Disposition (needs filled in before D/C Order can be placed): Home, Self Care Charges/Coding Addendum Addendum: 71-year-old male multiple comorbidities with past medical history of multiple myeloma in remission, history of intracranial hemorrhage, history of heart failure with preserved EF, recent history of GI bleed, off anticoagulation account of GI bleed who comes in with elevated heart rate. Patient was recently discharged from the TCU and was in the sleep lab last night for sleep study when he was found to have irregular heartbeat. In the ED, his EKG has been sinus tach/SVT/atrial fibrillation. Patient was admitted to the PCU and continued on Cardizem drip. Cardiology was consulted. He converted to normal sinus rhythm. Cardizem drip was discontinued started on oral Cardizem. Patient underwent stress test that was negative. Patient continued to complain of left-sided chest discomfort, previous CT of the chest was said to have possible left lower lobe pneumonia. Patient did not require oxygen or had any leukocytosis. He was not sporadically started on antibiotics for presumed left lower lobe pneumonia. Patient stress test was negative. He will need to follow-up with cardiology in the outpatient. Physical Exam: Gen: Comfortable, not pale, not jaundiced, CVS:HS I +II, regular, no murmurs RESP: CTA GI: BS present and normal, soft, nontender, no palpable organs EXT: No edema bilaterally Time spent coordinating patient's care, discussing with nursing, discussing with cardiology: 25 minutes Visit Charges OBSV E&M: 30811 Observation care discharge
--- NOTE | 2021-11-17 14:48 | CASEMGMT ---
This RN CM to room with NOEL form, explanation done-pt voices understanding, and signs NOEL form at this time. Pt voices no further questions/concerns/needs. SStaten SIVA CM
== END 2021-11-17 13:26 | disposition home or self-care (01) ==
LOC: ED 08:47 → PCU 15:19
PROVIDERS: Admitting Provider Internal Medicine; Emergency Provider Emergency Medicine; PCP Family Medicine; Visit Provider Internal Medicine
DX: I48.91 Unspecified atrial fibrillation (principal); C90.01 Multiple myeloma in remission; I11.0 Hypertensive heart disease with heart failure; I50.32 Chronic diastolic (congestive) heart failure; I47.1 Supraventricular tachycardia; D69.6 Thrombocytopenia, unspecified; D64.9 Anemia, unspecified; N40.1 Benign prostatic hyperplasia with lower urinary tract symptoms; I49.3 Ventricular premature depolarization; Z79.82 Long term (current) use of aspirin; G47.33 Obstructive sleep apnea (adult) (pediatric); F41.9 Anxiety disorder, unspecified; Z86.718 Personal history of other venous thrombosis and embolism; R07.89 Other chest pain; N13.8 Other obstructive and reflux uropathy; F32.A Depression, unspecified; Z79.899 Other long term (current) drug therapy; M10.00 Idiopathic gout, unspecified site; G62.9 Polyneuropathy, unspecified; Z86.19 Personal history of other infectious and parasitic diseases; F10.10 Alcohol abuse, uncomplicated
CPT/HCPCS: 36415; 71275; 78452; 80048; 80053; 83735; 83880; 84145; 84443; 84484; 85025; 85610; 85730; 87040; 93005; 93017; 96365; 96366; 96372; 96375; 96376; 97162; 97166; 99218; 99281; 99285; A9500; J7050; P9612; Q9967; A4216; G0378; J2405; J2785

== ENCOUNTER 2021-12-02 15:23 | Outpatient (CLI) | payer MEDICARE, BC, SELFPAY ==
[2021-12-02 16:37] LABS: Absolute Lymphocyte Count 3.15 X10^3/uL (0.83-4.51); Absolute Neutrophil Count 4.9 X10^3/uL (2.0-7.7); Basophil# 0.02 X10^3/uL; Basophil% 0.2 % (0-1); Eosinophil# 0.13 X10^3/uL; Eosinophils% 1.5 % (0-5); Hematocrit 30.7 % (40-54); Hemoglobin 9.3 g/dL (13.0-16.5); Lymphocyte # 3.15 X10^3/ul (0.83-4.51); Lymphocyte % 35.6 % (19-41); Mean Corp Hgb Conc 30.3 g/dL (32-36); Mean Corpuscular Volume 92.5 fL (80-94); Mean Platelet Vol. 9.8 fl (6.2-12.0); Monocyte# 0.62 X10^3/uL; NRBC Flagged by Analyzer 0 % (0-5); Neutrophil # 4.86 X10^3/uL (2.7-7.7); Neutrophil % 54.9 % (47-70); Platelet Count 206 K/mm3 (150-450); RBC Distribution Width CV 18.3 % (11.6-14.6); RBC Distribution Width SD 61.5 fl (35.1-43.9); Red Blood Count 3.32 M/mm3 (4.6-6.2); White Blood Count 8.9 K/mm3 (4.4-11.0)
[2021-12-02 17:07] LABS: Anion Gap 6 (5-15); BUN 16 mg/dL (7-18); BUN/Creat Ratio 16.5 RATIO (10-20); Calcium,Total 8.1 mg/dL (8.5-10.1); Chloride 109 mmol/L (98-107); Creatinine, Serum 0.97 mg/dL (0.70-1.30); EST Glomerular Filtration Rate 82 mL/min (>60); Est Glom Filt Rate - Afr Amer 99 mL/min (>60); Glucose 107 mg/dL (74-106); Magnesium 1.4 mg/dL (1.6-2.6); Potassium 3.8 mmol/L (3.5-5.1); Sodium Level 141 mmol/L (136-145)
== END 2021-12-02 23:59 | disposition home or self-care (01) ==
LOC: LAB 15:25
PROVIDERS: PCP Family Medicine; Referring Provider Nurse Practitioner Gerontology; Visit Provider Nurse Practitioner Gerontology
DX: R06.00 Dyspnea, unspecified (principal)
CPT/HCPCS: 36415; 80048; 83735; 83880; 85025

== ENCOUNTER 2021-12-15 16:22 | Inpatient (IN) | payer OTHER, SELFPAY ==
[2021-12-15 16:23] VITALS: BP 126/76; PULSE 86; RESP 14; TEMP 36.6; O2SAT 98; BMI 25.7
--- NOTE | 2021-12-15 17:17 | EX.ED.DYSGE1 ---
HPI History of Present Illness Chief Complaint: Other, Pain/Inj Informant: patient Onset/Context/Timing Onset: Weeks (1) Context: Gradual Onset Timing: Continuous Quality: sore, swollen Location: R jaw/face Current Severity: Moderate Maximum Severity: Moderate Worsened by: opening mouth, palpation Relieved by: leaving alone Narrative Narrative: Patient with multiple myeloma who has had painful swollen right jaw recently without any discharge. Sent in by his oncologist for possible abscess. He states several weeks ago he was on antibiotics for smaller version of this and it went away but now it has recurred. He denies any fevers or chills or systemic symptoms that are new with this. States it is hard to open his mouth because of the pain. He denies any trouble swallowing or breathing, as long as he can get things to eat or drink into his mouth. [facility] Medical History Acute deep vein thrombosis (DVT) of left lower extremity Anemia Anemia Angiodysplasia of colon Angiodysplasia of stomach Atrial fibrillation with RVR Autonomic neuropathy BPH with obstruction/lower urinary tract symptoms Chest pain, unspecified Chronic deep vein thrombosis (DVT) Closed L1 vertebral fracture Closed L2 vertebral fracture Closed T11 fracture Cognitive dysfunction Colon polyps Dysphagia Essential (primary) hypertension ETOH abuse Fatty liver GI bleed History of COVID-19 History of hepatitis C Hypomagnesemia Idiopathic gout Iron deficiency Lumbar spinal stenosis Lytic lesion of bone on x-ray Multiple myeloma Multiple myeloma not having achieved remission Obstructive sleep apnea Obstructive sleep apnea Orthostatic hypotension Osteopenia determined by x-ray Pancytopenia Prostatic enlargement SVT (supraventricular tachycardia) Syncope Thrombocytopenia Thyroid nodule incidentally noted on imaging study Torn ligament Urinary (tract) obstruction Home Medications ferrous sulfate 325 mg PO DAILY 06/18/20 [History Last Taken 11/15/21] folic acid 1 mg PO DAILY 10/09/21 [History Last Taken 11/15/21] sertraline 100 mg PO DAILY 10/09/21 [History Last Taken 11/15/21] ascorbic acid (vitamin C) [Vitamin C] 500 mg PO DAILY 10/12/21 [History Last Taken 11/15/21] calcium carbonate-vitamin D3 [Oyster Shell Calcium-Vit D3] 1 tab PO BIDCM 10/25/21 [History Last Taken 11/15/21] acetaminophen [Tylenol] 650 mg PO Q6H PRN PRN #0 tab 11/03/21 [Rx Last Taken Unknown] allopurinol 200 mg PO DAILY 30 Days #30 tab 11/03/21 [Rx Last Taken 11/15/21] potassium chloride [Klor-Con M20] 20 meq PO DAILYCM 30 Days #30 tab 11/03/21 [Rx Last Taken 11/15/21] aspirin 81 mg PO BREAKFAST 11/16/21 [History Last Taken 11/15/21] gabapentin 200 mg PO TID 11/16/21 [History Last Taken 11/15/21] mirtazapine 15 mg PO QHS 11/16/21 [History Last Taken 11/15/21] pantoprazole 40 mg PO BID 11/16/21 [History Last Taken 11/15/21] tamsulosin 0.4 mg PO QHS 11/16/21 [History Last Taken 11/15/21] albuterol sulfate 90 mcg/actuation aerosol inhaler 2 puff INHALATION Q4H PRN #18 g 11/19/21 [Rx Last Taken Unknown] carvedilol 6.25 mg tablet 6.25 mg PO BID #60 tab 12/03/21 [Rx Last Taken Unknown] magnesium oxide 400 mg (241.3 mg magnesium) tablet 400 mg PO BID #60 tab 12/03/21 [Rx Last Taken Unknown] Allergy/AdvReac Type Severity Reaction Status Date / Time No Known Allergies Allergy Verified 12/15/21 16:23 Family History Mother Heart disease Hypertension Father Hypertension Surgical History History of bunionectomy History of transurethral resection of prostate Social History household members: spouse Smoking Status: Never smoker alcohol intake: current alcohol intake frequency: 3 or more drinks per day substance use type: does not use ROS ROS ED Constitutional Constitutional ED: Reports fatigue; Denies chills or fever(s) Eyes Eyes: Denies change in vision or diplopia ENT ENT ED: Reports as per HPI and facial pain; Denies dental pain, rhinorrhea, sore throat or tongue swelling Cardiovascular Cardiovascular: Denies chest pain or palpitations Respiratory/Chest Respiratory/Chest: Denies cough or dyspnea Gastrointestinal Gastrointestinal: Denies abdominal pain, diarrhea, nausea or vomiting Genitourinary Genitourinary ED: Denies dysuria or hematuria Musculoskeletal Musculoskeletal: Denies back pain or neck pain Integumentary Reports as per HPI and abscess; Denies rash Neurologic Neurologic: Denies headache(s), paresthesias or weakness Psychiatric Psychiatric: Denies anxiety or suicidal thoughts EXAM Physical Exam Const Vital Signs: 12/15/21 16:23 12/15/21 16:32 12/15/21 18:47 Temperature 98 F Temperature Source Temporal Pulse Rate 86 78 Respiratory Rate 14 16 Respiratory Pattern Normal Blood Pressure 126/76 H 135/78 H Blood Pressure Mean 92 97 Pulse Ox 98 98 Oxygen Delivery Method Room Air Room Air 12/15/21 20:00 Temperature Temperature Source Pulse Rate 89 Respiratory Rate 16 Respiratory Pattern Blood Pressure 126/78 H Blood Pressure Mean 94 Pulse Ox 98 Oxygen Delivery Method Room Air Positive well nourished and well developed General Appearance ED: well developed and NAD HEENT Reports moist mucous membranes HEENT Narrative: 10 cm wide abscess along the body of the right mandible mostly, extending down into the upper right neck. No submental edema. No stridor. Mild trismus, there is purulent discharge active from what appears to be the base of tooth #28. On the inside of this tooth, there is a hard white nontender nodule, and medial to this there is no sublingual distention/swelling. normocephalic and atraumatic Eyes PERRL and EOMs intact bilaterally Neck full ROM, no lymphadenopathy, supple and no meningeal signs Resp normal respiratory effort and clear to auscultation bilaterally Cardio regular rate, regular rhythm and no murmurs GI non-tender and non-distended Auscultation: normoactive bowel sounds Palpation: soft Back/Spine no CVA tenderness General Back: other FROM Extremity normal to inspection General Extremety ED: Negative for edema, pulses abnormal or tenderness General Extremity: Negative for edema or pulses abnormal Neuro oriented x3, CN's II-XII intact bilaterally and no sensory deficits noted Sensorium / Orientation: awake and alert Motor Exam: strength 5/5 throughout Skin no rashes or lesions noted and no wounds MDM MDM MDM Narrative Medical decision making narrative: Patient clearly has an abscess in his face/neck, I obtained a CT for further evaluation and it does show that it is centered in the right commissioner of relocation services/submandibular space. It is unknown if it started from a tooth or not, but it is suspicious of this since he has pus pouring out of the space at the base of tooth #28. Pushing on the abscess does not produce more of this. It was sent for culture prior to starting him on vancomycin. There are no staker surveying line construction supervisor tonight although the will have availability in the morning, and Dr. Alcazar was not available tonight although he said he would be available in the morning as well. Given that the patient is immunocompromised and may or may not need operative management, I think he would benefit from at least IV antibiotics and I discussed with the hospitalist for admission. He is clinically stable and not septic. Lab Data Attestation: I reviewed the patient's lab results. Labs: Laboratory Results - last 24 hr 12/15/21 12/15/21 17:35 17:35 WBC 8.9 RBC 3.31 L Hgb 9.6 L Hct 30.6 L MCV 92.4 MCH 29.0 MCHC 31.4 L RDW Std Deviation 59.7 H RDW Coeff of [place] 17.5 H Plt Count 166 MPV 9.9 Immature Gran % (Auto) 0.300 Neut % (Auto) 59.8 Lymph % (Auto) 27.8 [place] % (Auto) 10.8 H Eos % (Auto) 1.1 Baso % (Auto) 0.2 Absolute Neuts (auto) 5.3 Absolute Lymphs (auto) 2.48 Nucleated RBC % 0 Sodium 136 Potassium 4.0 Chloride 103 Carbon Dioxide 28.0 Anion Gap 5 BUN 14 Creatinine 0.88 Estim Creat Clear Calc 86.96 Est GFR (MDRD) Af Amer 111 Est GFR (MDRD) Non-Af 91 BUN/Creatinine Ratio 15.9 Glucose 105 Calcium 8.6 Radiography Diagnostic Testing: Clinical Impression(s) from Imaging Studies Soft Tissue Neck CT 12/15/21 18:15 IMPRESSION: 4 cm abscess centered in the right commissioner of relocation services/submandibular space. No evidence of osteomyelitis. Electronically Signed: Mars Tillman MD at 19:00 EDT , Discharge Plan Triage Chief Complaint: Other, Pain/Inj ED Provider: Isaiah Serna Dx/Rx/DC Orders Clinical Impression: Abscess of submandibular region, Multiple myeloma, Immunocompromised state Prescriptions: No Action albuterol sulfate [Ventolin HFA] 90 mcg/actuation HFA aerosol inhaler 2 puff inhalation Q4H PRN (Reason: shortness of breath or wheezing) Qty: 18 RF: 6 ferrous sulfate 325 MG tablet 325 mg PO DAILY RF: 0 sertraline 100 mg Tablet 100 mg PO DAILY RF: 0 folic acid 1 mg Tablet 1 mg PO DAILY RF: 0 ascorbic acid (vitamin C) [Vitamin C] 500 mg Tablet 500 mg PO DAILY RF: 0 calcium carbonate-vitamin D3 [Oyster Shell Calcium-Vit D3] 500 mg-5 mcg (200 unit) tablet 1 tab PO BIDCM RF: 0 acetaminophen [Tylenol] 325 mg Tablet 650 mg PO Q6H PRN PRN (Reason: PAIN 1-10) Qty: 0 RF: 0 allopurinol 100 mg tablet 200 mg PO DAILY 30 Days Qty: 30 RF: 0 potassium chloride [Klor-Con M20] 20 mEq tablet,ER particles/crystals 20 meq PO DAILYCM 30 Days Qty: 30 RF: 0 tamsulosin 0.4 mg capsule 0.4 mg PO QHS RF: 0 aspirin 81 mg tablet,delayed release (DR/EC) 81 mg PO BREAKFAST RF: 0 mirtazapine 15 mg tablet 15 mg PO QHS RF: 0 pantoprazole 40 mg tablet,delayed release (DR/EC) 40 mg PO BID RF: 0 gabapentin 100 mg capsule 200 mg PO TID RF: 0 carvedilol [Coreg] 6.25 mg tablet 6.25 mg PO BID Qty: 60 RF: 2 magnesium oxide 400 mg (241.3 mg magnesium) tablet 400 mg PO BID Qty: 60 RF: 1 Primary Care Provider: Onur Garcia Referrals: Onur Garcia MD [Primary Care Provider] -
[2021-12-15 17:55] LABS: Absolute Lymphocyte Count 2.48 X10^3/uL (0.83-4.51); Absolute Neutrophil Count 5.3 X10^3/uL (2.0-7.7); Basophil# 0.02 X10^3/uL; Basophil% 0.2 % (0-1); Eosinophils% 1.1 % (0-5); Hematocrit 30.6 % (40-54); Hemoglobin 9.6 g/dL (13.0-16.5); Lymphocyte # 2.48 X10^3/ul (0.83-4.51); Lymphocyte % 27.8 % (19-41); Mean Corp Hgb Conc 31.4 g/dL (32-36); Mean Corpuscular Volume 92.4 fL (80-94); Mean Platelet Vol. 9.9 fl (6.2-12.0); Monocyte# 0.96 X10^3/uL; Monocyte% 10.8 % (0-10); NRBC Flagged by Analyzer 0 % (0-5); Neutrophil # 5.34 X10^3/uL (2.7-7.7); Neutrophil % 59.8 % (47-70); Platelet Count 166 K/mm3 (150-450); RBC Distribution Width CV 17.5 % (11.6-14.6); RBC Distribution Width SD 59.7 fl (35.1-43.9); Red Blood Count 3.31 M/mm3 (4.6-6.2); White Blood Count 8.9 K/mm3 (4.4-11.0)
[2021-12-15 18:15] LABS: Anion Gap 5 (5-15); BUN 14 mg/dL (7-18); BUN/Creat Ratio 15.9 RATIO (10-20); Calcium,Total 8.6 mg/dL (8.5-10.1); Chloride 103 mmol/L (98-107); Creatinine, Serum 0.88 mg/dL (0.70-1.30); EST Glomerular Filtration Rate 91 mL/min (>60); Est Glom Filt Rate - Afr Amer 111 mL/min (>60); Estimated Creatinine Clearance 86.96 ml/min; Glucose 105 mg/dL (74-106); Sodium Level 136 mmol/L (136-145)
--- NOTE | 2021-12-15 18:15 | CT_ITS ---
INDICATION: abscess EXAMINATION: CT Soft Tissue Neck W/ Contrast Injection TECHNIQUE: Helically acquired images were obtained of the neck following IV contrast. A radiation dose optimization technique was used for this scan. IV Contrast dosage and agent: 100 cc [id number] COMPARISON: None. FINDINGS: NASOPHARYNX: Unremarkable. SUPRAHYOID NECK: Centered in the right mandibular and technical support specialist space inferior to the body of the right mandible there is a 3.9 x 3 x 1.7 cm rim-enhancing fluid collection. There is surrounding subcutaneous fat stranding. Otherwise unremarkable oropharynx, oral cavity, parapharyngeal space, and retropharyngeal space. INFRAHYOID NECK: Unremarkable larynx, hypopharynx, and supraglottis. THYROID: No focal lesions. SALIVARY GLANDS: Unremarkable. LYMPH NODES: No cervical or supraclavicular lymphadenopathy. VASCULAR STRUCTURES: Unremarkable. VISUALIZED PORTIONS OF THE ORBITS, PARANASAL SINUSES, MASTOID AIR CELLS AND SKULL BASE: Unremarkable. BONES: Degenerative changes of the cervical spine.. THORACIC INLET: Clear lung apices. CT/Soft Tissue Neck WITH Contrast IMPRESSION: 4 cm abscess centered in the right technical support specialist/submandibular space. No evidence of osteomyelitis. Electronically Signed: Mars Tillman MD at 19:00 EDT ,
[2021-12-15 18:47] VITALS: BP 135/78; PULSE 78; RESP 16; O2SAT 98
[2021-12-15 20:00] VITALS: BP 126/78; PULSE 89; RESP 16; O2SAT 98
--- NOTE | 2021-12-15 21:09 | HP.PCM_ITS ---
Documented by User: JARETT Chamberlain 12/15/21 21:23 HPI - General General Date of Admission: 12/15/21 Date of Service: 12/15/21 Chief Complaint: Submandibular abscess HPI Narrative NIDIA HICKMAN, is a 71 M who presents with complaints of jaw pain and swelling x1 week. Patient also reports that he has difficulty opening his mouth due to pain and swelling. Patient reports that he has a history of multiple myeloma as well as depression, neuropathy, anemia, GERD. Patient reports that this happened approximately 1 month ago and he was given antibiotics and it went away only to come back. Patient has a left chest port and undergoes treatment for his multiple myeloma with Dr. Brunson. Patient denies fever, chills, difficulty swallowing, difficulty breathing. [facility] Medical History (Updated 12/15/21 @ 22:07 by Judy Lainez) Acute deep vein thrombosis (DVT) of left lower extremity Anemia Anemia Angiodysplasia of colon Angiodysplasia of stomach Asthma Atrial fibrillation with RVR Autonomic neuropathy BiPAP (biphasic positive airway pressure) dependence BPH with obstruction/lower urinary tract symptoms Chest pain, unspecified Chronic deep vein thrombosis (DVT) Closed L1 vertebral fracture Closed L2 vertebral fracture Closed T11 fracture Cognitive dysfunction Colon polyps Dysphagia Essential (primary) hypertension ETOH abuse Fatty liver Former smoker GI bleed History of COVID-19 History of hepatitis C Hypomagnesemia Idiopathic gout Iron deficiency Lumbar spinal stenosis Lytic lesion of bone on x-ray Multiple myeloma Multiple myeloma not having achieved remission Obstructive sleep apnea Obstructive sleep apnea Orthostatic hypotension Osteopenia determined by x-ray Pancytopenia Prostatic enlargement SVT (supraventricular tachycardia) Syncope Thrombocytopenia Thyroid nodule incidentally noted on imaging study Torn ligament Urinary (tract) obstruction Wears hearing aid in both ears Home Medications ferrous sulfate 325 mg PO DAILY 06/18/20 [History Last Taken 11/15/21] folic acid 1 mg PO DAILY 10/09/21 [History Last Taken 11/15/21] sertraline 100 mg PO DAILY 10/09/21 [History Last Taken 11/15/21] ascorbic acid (vitamin C) [Vitamin C] 500 mg PO DAILY 10/12/21 [History Last Taken 11/15/21] calcium carbonate-vitamin D3 [Oyster Shell Calcium-Vit D3] 1 tab PO BIDCM [History Last Taken 11/15/21] acetaminophen [Tylenol] 650 mg PO Q6H PRN PRN #0 tab 11/03/21 [Rx Last Taken Unknown] allopurinol 200 mg PO DAILY 30 Days #30 tab 11/03/21 [Rx Last Taken 11/15/21] potassium chloride [Klor-Con M20] 20 meq PO DAILYCM 30 Days #30 tab 11/03/21 [Rx Last Taken 11/15/21] aspirin 81 mg PO BREAKFAST 11/16/21 [History Last Taken 11/15/21] gabapentin 200 mg PO TID 11/16/21 [History Last Taken 11/15/21] mirtazapine 15 mg PO QHS 11/16/21 [History Last Taken 11/15/21] pantoprazole 40 mg PO BID 11/16/21 [History Last Taken 11/15/21] tamsulosin 0.4 mg PO QHS 11/16/21 [History Last Taken 11/15/21] albuterol sulfate 90 mcg/actuation aerosol inhaler 2 puff INHALATION Q4H PRN #18 g 11/19/21 [Rx Last Taken Unknown] carvedilol 6.25 mg tablet 6.25 mg PO BID #60 tab 12/03/21 [Rx Last Taken Unknown] magnesium oxide 400 mg (241.3 mg magnesium) tablet 400 mg PO BID #60 tab 2 [Rx Last Taken Unknown] Allergy/AdvReac Type Severity Reaction Status Date / Time No Known Allergies Allergy Verified 12/15/21 16:23 Family History Mother Heart disease Hypertension Father Hypertension Surgical History History of bunionectomy History of transurethral resection of prostate Social History household members: spouse Smoking Status: Never smoker alcohol intake: current alcohol intake frequency: 3 or more drinks per day substance use type: does not use ROS Constitutional Constitutional: Denies anorexia, chills, fatigue, fever(s) or malaise ENT HEENT: Reports dental pain, facial pain and mouth pain Cardiovascular Cardiovascular: Denies chest pain, edema, palpitations or syncope Respiratory/Chest Respiratory/Chest: Denies cough, shortness of breath at rest, shortness of breath with exertion or wheezing Gastrointestinal Gastrointestinal: Denies abdominal pain, constipation, diarrhea, nausea or vomiting Genitourinary Genitourinary: Denies dysuria Musculoskeletal Musculoskeletal: Denies back pain, extremity pain, joint pain, joint stiffness or joint swelling Integumentary Integumentary: Denies dry skin Neurologic Neurologic: Denies abnormal gait, abnormal speech, confusion, dizziness or focal weakness Psychiatric Psychiatric: Denies anxiety Endocrine Endocrinology: Denies change in body appearance Hematologic/Lymphatic Hematologic/Lymphatic: Reports anemia Vital Signs Vital Signs Vital Signs: 12/15/21 16:23 12/15/21 16:32 12/15/21 18:47 Temperature 98 F Temperature Source Temporal Pulse Rate 86 78 Respiratory Rate 14 16 Respiratory Pattern Normal Blood Pressure 126/76 H 135/78 H Blood Pressure Mean 92 97 Pulse Ox 98 98 Oxygen Delivery Method Room Air Room Air 12/15/21 20:00 Temperature Temperature Source Pulse Rate 89 Respiratory Rate 16 Respiratory Pattern Blood Pressure 126/78 H Blood Pressure Mean 94 Pulse Ox 98 Oxygen Delivery Method Room Air Weight Weight: 189 lb 9.561 oz Body Mass Index (BMI) 25.7 Physical Exam Const alert, oriented x3 and no apparent distress General Appearance: cooperative HEENT normocephalic and head/scalp atraumatic Face and Sinus: facial edema right Positive for submandibular and facial tenderness right Mouth: trismus and restricted motion Eyes conjunctivae normal and no scleral icterus Neck no lymphadenopathy and supple General: trachea midline Resp normal respiratory effort, normal air movement and clear to auscultation bilaterally Cardio regular rate, regular rhythm, S1 normal heart sound, S2 normal heart sound and peripheral pulses 2+ throughout GI normal to inspection, nondistended, normoactive bowel sounds, soft to palpation and non-tender Extremity normal capillary refill and no clubbing, cyanosis or edema General Extremity: no tenderness to palpation of joints or extremities Skin General Skin Exam: no breakdown and turgor normal Lesions: no lesions Rashes: no rashes Neuro no focal motor deficits and no sensory deficits noted Motor Exam: Negative for general weakness Psych thought process normal, cooperative and affect normal Appearance: appropriate Results Lab / Micro Data Result Diagrams: 12/15/21 17:35 12/15/21 17:35 Labs: Laboratory Results - last 24 hr 12/15/21 17:35: Sodium 136, Potassium 4.0, Chloride 103, Carbon Dioxide 28.0, Anion Gap 5, BUN 14, Creatinine 0.88, Estim Creat Clear Calc 86.96, Est GFR (MDRD) Af Amer 111, Est GFR (MDRD) Non-Af 91, BUN/Creatinine Ratio 15.9, Glucose 105, Calcium 8.6 12/15/21 17:35: WBC 8.9, RBC 3.31 L, Hgb 9.6 L, Hct 30.6 L, MCV 92.4, MCH 29.0, MCHC 31.4 L, RDW Std Deviation 59.7 H, RDW Coeff of [place] 17.5 H, Plt Count 166, MPV 9.9, Immature Gran % (Auto) 0.300, Neut % (Auto) 59.8, Lymph % (Auto) 27.8, [place] % (Auto) 10.8 H, Eos % (Auto) 1.1, Baso % (Auto) 0.2, Absolute Neuts (auto) 5.3, Absolute Lymphs (auto) 2.48, Nucleated RBC % 0 Radiology Impression Soft Tissue Neck CT 12/15/21 18:15 IMPRESSION: 4 cm abscess centered in the right rubber washer/submandibular space. No evidence of osteomyelitis. Electronically Signed: Mars Tillman MD at 19:00 EDT , Assessment & Plan Assessment/Plan (1) Abscess of submandibular region: PLAN: 1. Abscess of submandibular region -Admit to [facility] -Consult Dr. Alcazar in the a.m. -Continue vancomycin, add clindamycin IV -Tylenol and oxycodone ordered for pain as needed -Nutrition consult as patient will likely need dietary adjustments due to pain and swelling -Clear liquid diet ordered -CBC and BMP ordered for a.m. 2. Chronic heart failure with reduced EF -Continue carvedilol 3. Peripheral neuropathy -Continue gabapentin 4. Depression -Continue sertraline and Remeron 5. BPH -Continue tamsulosin -Intake and output 6. Iron deficiency anemia -Hemoglobin and hematocrit consistent with patient's baseline -Continue iron supplementation -CBC daily 7. Multiple myeloma -Patient currently undergoing treatment with Dr. Brunson -Patient has left chest port, accessed for admission DVT prophylaxis-SCDs, no pharmacological prophylaxis pending surgical eval This patient was seen by Rosetta Ruff NP-C under the supervision of Dr. Rich. 32 minutes spent in clinical coordination of patient's plan of care. Documented by User: Dr. Massimo Rich MD 12/15/21 22:53 HPI - General General Date of Admission: 12/15/21 [facility] Medical History (Updated 12/15/21 @ 22:07 by Judy Lainez) Acute deep vein thrombosis (DVT) of left lower extremity Anemia Anemia Angiodysplasia of colon Angiodysplasia of stomach Asthma Atrial fibrillation with RVR Autonomic neuropathy BiPAP (biphasic positive airway pressure) dependence BPH with obstruction/lower urinary tract symptoms Chest pain, unspecified Chronic deep vein thrombosis (DVT) Closed L1 vertebral fracture Closed L2 vertebral fracture Closed T11 fracture Cognitive dysfunction Colon polyps Dysphagia Essential (primary) hypertension ETOH abuse Fatty liver Former smoker GI bleed History of COVID-19 History of hepatitis C Hypomagnesemia Idiopathic gout Iron deficiency Lumbar spinal stenosis Lytic lesion of bone on x-ray Multiple myeloma Multiple myeloma not having achieved remission Obstructive sleep apnea Obstructive sleep apnea Orthostatic hypotension Osteopenia determined by x-ray Pancytopenia Prostatic enlargement SVT (supraventricular tachycardia) Syncope Thrombocytopenia Thyroid nodule incidentally noted on imaging study Torn ligament Urinary (tract) obstruction Wears hearing aid in both ears Home Medications ferrous sulfate 325 mg PO DAILY 06/18/20 [History Last Taken 11/15/21] folic acid 1 mg PO DAILY 10/09/21 [History Last Taken 11/15/21] sertraline 100 mg PO DAILY 10/09/21 [History Last Taken 11/15/21] ascorbic acid (vitamin C) [Vitamin C] 500 mg PO DAILY 10/12/21 [History Last Taken 11/15/21] calcium carbonate-vitamin D3 [Oyster Shell Calcium-Vit D3] 1 tab PO BIDCM 10/25/21 [History Last Taken 11/15/21] acetaminophen [Tylenol] 650 mg PO Q6H PRN PRN #0 tab 11/03/21 [Rx Last Taken Unknown] allopurinol 200 mg PO DAILY 30 Days #30 tab 11/03/21 [Rx Last Taken 11/15/21] potassium chloride [Klor-Con M20] 20 meq PO DAILYCM 30 Days #30 tab 11/03/21 [Rx Last Taken 11/15/21] aspirin 81 mg PO BREAKFAST 11/16/21 [History Last Taken 11/15/21] gabapentin 200 mg PO TID 11/16/21 [History Last Taken 11/15/21] mirtazapine 15 mg PO QHS 11/16/21 [History Last Taken 11/15/21] pantoprazole 40 mg PO BID 11/16/21 [History Last Taken 11/15/21] tamsulosin 0.4 mg PO QHS 11/16/21 [History Last Taken 11/15/21] albuterol sulfate 90 mcg/actuation aerosol inhaler 2 puff INHALATION Q4H PRN #18 g 11/19/21 [Rx Last Taken Unknown] carvedilol 6.25 mg tablet 6.25 mg PO BID #60 tab 12/03/21 [Rx Last Taken Unknown] magnesium oxide 400 mg (241.3 mg magnesium) tablet 400 mg PO BID #60 tab 12/03/21 [Rx Last Taken Unknown] Allergy/AdvReac Type Severity Reaction Status Date / Time No Known Allergies Allergy Verified 12/15/21 16:23 Family History Mother Heart disease Hypertension Father Hypertension Surgical History History of bunionectomy History of transurethral resection of prostate Social History household members: spouse Smoking Status: Never smoker alcohol intake: current alcohol intake frequency: 3 or more drinks per day substance use type: does not use Results Lab / Micro Data Result Diagrams: 12/15/21 17:35 12/15/21 17:35 Charges/Coding Addendum Addendum: Patient was seen and examined independently. I agree with assessment and plan by Rosetta Knoble, BOSS DYER-C Patient is a 71-year-old male with a significant history of diastolic heart failure; multiple myeloma with last chemotherapy about 3 months ago; BPH status post TURP and on depends who presents emergency department with a 1 week swelling and pain of his right jaw. The swelling started at the lower submandibular area and it has progressed to the right cheek. He denies any other symptoms except that he had a one-time loose stools; tenesmus and incontinence on the day of presentation. Physical exam: General: Well-nourished, well-developed. Head: Normocephalic, atraumatic, no tenderness Eyes: Vision is grossly intact. EOMI ENT: Bony prominence in the right side of the floor of the mouth. Pus drainage from right lower teeth. Induration of the right cheek. Neck: Nontender, full range of motion, no spinal tenderness, deformities, step- off CVS: Regular rate and rhythm. S1-S2 present. No murmur, gallop or rub. Respiratory : clear to auscultation bilaterally, chest wall nontender, no wheezing Abdomen: Soft, nontender, nondistended, normal bowel sounds, no masses : Deferred Back: Nontender, no CVA tenderness, no midline spinal tenderness, deformities, step-offs Extremities: Nontender full range of motion, no trauma Skin: Normal color, no trauma, abrasions Neuro: Alert, oriented, cranial nerves II through XII grossly intact. Psychiatry: Normal mood. Normal affect. Not depressed. Not anxious. Submandibular abscess Soft tissue neck CT was visualized and independently interpreted and agree with radiologist interpretation of abscess at the right/submandibular space. CBC reviewed showed normal white count; and chronic anemia (likely secondary to multiple myeloma) Oral and Maxillofacial surgeon consult. N.p.o. after midnight while waiting for surgeon to see him. CBC and BMP ordered. DVT prophylaxis: Patient is a surgical candidate no chemical thromboprophylaxis. SCDs ordered. Visit Charges Inpatient E&M: 79546 Init Hosp L3
[2021-12-15 21:34] VITALS: BP 134/78; PULSE 78; RESP 14; TEMP 36.6; O2SAT 98
[2021-12-15 21:40] VITALS: BMI 25.5
[2021-12-15 21:53] VITALS: BP 169/89; PULSE 87; RESP 18; TEMP 37.1; O2SAT 97
--- NOTE | 2021-12-15 22:13 | PCM.RX.CS ---
Consult Pharmacy has been consulted to manage selected antiobiotic: Vancomycin Type of Consult: New start Suspected Infection: Skin/Soft tissue Prior Doses of Antibiotics Received/Current Regimen: Medications Vancomycin HCl 1,500 mg/ (Sodium Chloride) 530 mls @ 250 mls/hr IV Q12H OLIMPIA Discontinued Medications Vancomycin HCl 1,250 mg/ (Sodium Chloride) 275 mls @ 167 mls/hr IV X1 ONE Stop: 12/15/21 18:48 Last Admin: 12/15/21 20:22 Dose: Infused Labs: Sodium 136 mmol/L (136-145) 12/15/21 17:35 Potassium 4.0 mmol/L (3.5-5.1) 12/15/21 17:35 Chloride 103 mmol/L (98-107) 12/15/21 17:35 Carbon Dioxide 28.0 mmol/L (21.0-32.0) 12/15/21 17:35 Anion Gap 5 (5-15) 12/15/21 17:35 BUN 14 mg/dL (7-18) 12/15/21 17:35 Creatinine 0.88 mg/dL (0.70-1.30) 12/15/21 17:35 Est GFR (MDRD) Af Amer 111 mL/min (>60) 12/15/21 17:35 Est GFR (MDRD) Non-Af 91 mL/min (>60) 12/15/21 17:35 BUN/Creatinine Ratio 15.9 RATIO (10-20) 12/15/21 17:35 Glucose 105 mg/dL (74-106) 12/15/21 17:35 Weight used for dosin.4 kg Estimated Creatinine Clearance: 87 Goal Trough: 15-20 mcg/mL Pharmacy Plan for Drug Dosing: Pharmacy Service will continue to monitor and adjust dosing as required. Follow-Up Labs: Trough Vancomycin Labs to be done on [date and time ordered]: 12/17/21 @1375
[2021-12-15] MEDS: Clindamycin 600 MG/50 ML BAG 100 MG IV (22:47)
[2021-12-15] MEDS: 0.9% Saline Lock 10 ML Syringe IV ×2 (22:55→23:47)
[2021-12-16] VITALS (9 sets, daily range): BP systolic 114–174; BP diastolic 62–100; PULSE 81–95; RESP 16–18; TEMP 36.6–37.5; O2SAT 93–97
[2021-12-16] MEDS: hydrALAZINE 20 MG/ML Vial 10 MG IV (05:18)
[2021-12-16] MEDS: 0.9% Saline Lock 10 ML Syringe IV ×2 (05:18→05:58)
[2021-12-16] MEDS: Clindamycin 600 MG/50 ML BAG 100 MG IV (05:18)
[2021-12-16 06:03] LABS: Absolute Lymphocyte Count 2.19 X10^3/uL (0.83-4.51); Absolute Neutrophil Count 5.7 X10^3/uL (2.0-7.7); Basophil# 0.02 X10^3/uL; Basophil% 0.2 % (0-1); Eosinophil# 0.07 X10^3/uL; Eosinophils% 0.8 % (0-5); Hematocrit 31.3 % (40-54); Hemoglobin 9.9 g/dL (13.0-16.5); Lymphocyte # 2.19 X10^3/ul (0.83-4.51); Lymphocyte % 24.9 % (19-41); Mean Corp Hgb Conc 31.6 g/dL (32-36); Mean Corpuscular Volume 91.8 fL (80-94); Mean Platelet Vol. 9.3 fl (6.2-12.0); Monocyte# 0.78 X10^3/uL; Monocyte% 8.9 % (0-10); NRBC Flagged by Analyzer 0 % (0-5); Neutrophil # 5.72 X10^3/uL (2.7-7.7); Neutrophil % 64.9 % (47-70); Platelet Count 175 K/mm3 (150-450); RBC Distribution Width CV 17.3 % (11.6-14.6); Red Blood Count 3.41 M/mm3 (4.6-6.2); White Blood Count 8.8 K/mm3 (4.4-11.0)
[2021-12-16 06:42] LABS: Anion Gap 6 (5-15); BUN 12 mg/dL (7-18); BUN/Creat Ratio 16.1 RATIO (10-20); Calcium,Total 8.1 mg/dL (8.5-10.1); Chloride 101 mmol/L (98-107); Creatinine, Serum 0.74 mg/dL (0.70-1.30); EST Glomerular Filtration Rate 111 mL/min (>60); Est Glom Filt Rate - Afr Amer 134 mL/min (>60); Estimated Creatinine Clearance 76.52 ml/min; Glucose 101 mg/dL (74-106); Potassium 3.7 mmol/L (3.5-5.1); Sodium Level 134 mmol/L (136-145)
--- NOTE | 2021-12-16 09:02 | PN.HOSP_ITS ---
Subjective Subjective Still with facial swelling. Objective Data Objective Data Vital Signs: Vital Signs Temp Pulse Resp BP Pulse Ox 36.6 C 89 18 141/82 H 97 12/16/21 08:40 12/16/21 08:40 12/16/21 08:40 12/16/21 08:40 12/16/21 08:40 Oxygen Delivery Method Room Air Weight: 85.411 kg Body Mass Index (BMI) 25.5 Intake & Output: Intake and Output for Last 24 Hours 12/14/21 12/15/21 12/16/21 23:59 23:59 23:59 Intake Total 825 / 825 580 / 580 Balance 825 / 825 580 / 580 Lab / Micro Data Result Diagrams: 12/16/21 05:10 12/16/21 05:10 Labs: Laboratory Results - last 24 hr 12/15/21 17:35: Sodium 136, Potassium 4.0, Chloride 103, Carbon Dioxide 28.0, Anion Gap 5, BUN 14, Creatinine 0.88, Estim Creat Clear Calc 86.96, Est GFR (MDRD) Af Amer 111, Est GFR (MDRD) Non-Af 91, BUN/Creatinine Ratio 15.9, Glucose 105, Calcium 8.6 12/15/21 17:35: WBC 8.9, RBC 3.31 L, Hgb 9.6 L, Hct 30.6 L, MCV 92.4, MCH 29.0, MCHC 31.4 L, RDW Std Deviation 59.7 H, RDW Coeff of [place] 17.5 H, Plt Count 166, MPV 9.9, Immature Gran % (Auto) 0.300, Neut % (Auto) 59.8, Lymph % (Auto) 27.8, [place]eline % (Auto) 10.8 H, Eos % (Auto) 1.1, Baso % (Auto) 0.2, Absolute Neuts (auto) 5.3, Absolute Lymphs (auto) 2.48, Nucleated RBC % 0 12/16/21 05:10: WBC 8.8, RBC 3.41 L, Hgb 9.9 L, Hct 31.3 L, MCV 91.8, MCH 29.0, MCHC 31.6 L, RDW Std Deviation 58.0 H, RDW Coeff of [place] 17.3 H, Plt Count 175, MPV 9.3, Immature Gran % (Auto) 0.300, Neut % (Auto) 64.9, Lymph % (Auto) 24.9, Evangeline % (Auto) 8.9, Eos % (Auto) 0.8, Baso % (Auto) 0.2, Absolute Neuts (auto) 5.7, Absolute Lymphs (auto) 2.19, Nucleated RBC % 0 12/16/21 05:10: Sodium 134 L, Potassium 3.7, Chloride 101, Carbon Dioxide 27.0, Anion Gap 6, BUN 12, Creatinine 0.74, Estim Creat Clear Calc 76.52, Est GFR (MDRD) Af Amer 134, Est GFR (MDRD) Non-Af 111, BUN/Creatinine Ratio 16.1, Glucose 101, Calcium 8.1 L Radiography Diagnostic Testing: Radiology Impression Soft Tissue Neck CT 12/15/21 18:15 IMPRESSION: 4 cm abscess centered in the right police clerk/submandibular space. No evidence of osteomyelitis. Electronically Signed: Mars Tillman MD at 19:00 EDT , Physical Exam Const alert and no apparent distress HEENT HEENT Narrative: right submandibular swelling. ulceration on lower right gum line. no obvious purulence. Resp normal respiratory effort, no retractions, no use of accessory muscles and clear to auscultation bilaterally Cardio regular rate, regular rhythm, S1 normal heart sound and S2 normal heart sound Skin Skin Narrative: erythema without skin thickening on right face Psych affect normal Assessment & Plan Assessment/Plan (1) Abscess of submandibular region: PLAN: 1. right submandibular abscess * no trismus, dyspnea * may be otogenic * no lugwig's angina at this time * wound culture performed and pending * on vanc and clindamycin * will dc clindamycin and start ampicillin/SB * will require surgery * NPO for now 2. Multiple myeloma * complicates care and recovery * reports not taking chemo therapy for about 2 months. 3. Chronic conditions: * HFREF: compensated. on carvedilol * Peripheral neuropathy * Depression: SSRI * BPH: tamsulosin * Iron-deficiency anemia: stable 4. VTE prophylaxis: SCDs for now. Charges/Coding Visit Charges Inpatient E&M: 45575 Subs Hosp L2
[2021-12-16] MEDS: 0.9% Normal Saline 1,000 ML 75 ML IV (10:03)
[2021-12-16] MEDS: Pantoprazole Sodium 40 MG Tablet PO ×2 (10:06→21:35)
[2021-12-16] MEDS: Magnesium Chloride 64 MG Delay Rel.Tablet 128 MG PO (10:06)
[2021-12-16] MEDS: Sertraline 100 MG Tablet PO (10:06)
[2021-12-16] MEDS: Ascorbic Acid 500 MG Tablet PO (10:06)
[2021-12-16] MEDS: Carvedilol 6.25 MG Tablet PO ×2 (10:06→21:33)
[2021-12-16] MEDS: Allopurinol 100 MG Tablet 200 MG PO (10:06)
[2021-12-16] MEDS: Folic Acid 1 MG Tablet PO (10:06)
--- NOTE | 2021-12-16 10:46 | NURSING ---
Attempted to call pt's. Vijaya to update med list. Left voicemail reminding to bring in med list when she visits.
--- NOTE | 2021-12-16 13:15 | CASEMGMT ---
RN CM AIRPLANE AND ENGINE INSPECTOR CM to room to meet with patient for initial transition planning/care coordination assessment. RN NEETA introduced self and role at [facility]. Pt voices understanding and consents to assessment at this time. Pt resting in bed in no distress at this time. Pt is A/O at this time and answers all questions appropriately. Care providers, pharmacy, and demographics verified/updated at this time. PCP: Dr Garcia Specialists: Dr Brunson-oncology Preferred Pharmacy:[facility] Retail Insurance: [employer], [facility], [place] Prescription Benefit: Yes Living Will/HPOA: Has both LW and HPOA, who is his , Sandra AYALAOK: , Sandra. 2 daughters. Luciana lives about 5 miles away and another dtr lives in [place] Living Arrangements: Lives w/his in one-story home w/basement. 2 steps to enter. Independent w/ADL's. and pt share home mgmt tasks. Transportation: Pt states drives self and states no transportation concerns at this time. also drives. DME: States has the following DME: cane, BIPAP from [facility] (through [place]). Has walker available, but does not use. Pt states no need for further DME at this time. HHC/SNF: No hx of HHC. Has been to [facility], [facility], and [facility]. Declines need for HHC. Pt wishes to return home and states has no concerns with going home at time of discharge. Pt states does not smoke. States drinks a couple shots of Vodka daily, in the evening. Pt states started drinking when he retired, found out about the [place], and during COVID, stating, I'm like a hermit. Pt also voiced stressors @ home w/ since [place] diagnoses. Molly MOCTEZUMA, made aware. CM to follow for any further discharge planning/needs. Pt voices no further concerns/needs at this time. Advised pt to ask for CM if any further questions/concerns/needs arise. Voices understanding. PLAN: Home w/discharge plans in place. Dr Melo has been consulted. CM to discuss further discharge planning w/pt, if IV atb's are needed @ d/c. Angela WHEELER RN, CM
[2021-12-16] MEDS: Gabapentin 100 MG Capsule 200 MG PO ×2 (14:41→21:34)
--- NOTE | 2021-12-16 15:03 | CASEMGMT ---
Social Work SW met with pt and introduced self and role of SW. Pt open to conversation with SW. Support provided to pt as he discussed cancer diagnosis and effects it has had on his life and relationships. Pt denies feelings of depression and denies needs upon discharge. SW will remain available if needs arise. MARIZOL Caputo
--- NOTE | 2021-12-16 16:50 | PCM.CONS.B ---
Consult Date of Consult: 12/16/21 I have seen the patient bedside consultation for right facial swelling presumably from odontogenic reasons. Patient is sitting up cooperative alert and oriented. Recently drainage from the right cheek region extraorally from probable infected lower right dentition as started. Patient states that he feels much better since the drainage and he is also opening his mouth much better. On examination the neck is soft without any deviation of the trachea he does have significant drainage from the right cheek region. It is obviously bacterial, intraorally the patient is able to open without significant trismus the tongue is not swollen palate is clear there is no airway embarrassment noted. He is handling his secretions well. Reason for Consult I I have been asked to see the patient for swelling right neck and cheek presumably from teeth. As above the patient has no airway embarrassment he is draining purulent exudate from the right cheek. He has a significant medical history for multiple myeloma and some congestive heart failure I was told. At this time the patient is draining actively and I do not see any need for acute surgical intervention I feel that he will improve significantly on the IV antibiotics. At this time I will consult with Dr. Velasquez and most likely see this patient on an outpatient basis for removal of any offending teeth causing this infection. This is Dr. Alcazar ending the consult.
[2021-12-16] MEDS: Tamsulosin HCl 0.4 MG Capsule PO (21:33)
[2021-12-16] MEDS: Magnesium Chloride 64 MG Delay Rel.Tablet PO (21:34)
[2021-12-16] MEDS: Mirtazapine 15 MG Tablet PO (21:35)
[2021-12-17 03:15] VITALS: BP 133/56; PULSE 82; RESP 18; TEMP 36.6; O2SAT 96
[2021-12-17] MEDS: 0.9% Normal Saline 1,000 ML 75 ML IV ×2 (03:39→17:32)
[2021-12-17 05:50] LABS: Absolute Neutrophil Count 2.8 X10^3/uL (2.0-7.7); Basophil# 0.02 X10^3/uL; Basophil% 0.4 % (0-1); Eosinophil# 0.13 X10^3/uL; Eosinophils% 2.4 % (0-5); Hemoglobin 9.2 g/dL (13.0-16.5); Lymphocyte % 33.4 % (19-41); Mean Corp Hgb Conc 30.7 g/dL (32-36); Mean Corpuscular Hgb 28.5 pg (27.0-32.0); Mean Corpuscular Volume 92.9 fL (80-94); Monocyte# 0.57 X10^3/uL; Monocyte% 10.6 % (0-10); NRBC Flagged by Analyzer 0 % (0-5); Neutrophil # 2.84 X10^3/uL (2.7-7.7); Neutrophil % 52.6 % (47-70); Platelet Count 159 K/mm3 (150-450); RBC Distribution Width CV 17.3 % (11.6-14.6); RBC Distribution Width SD 60.1 fl (35.1-43.9); Red Blood Count 3.23 M/mm3 (4.6-6.2); White Blood Count 5.4 K/mm3 (4.4-11.0)
[2021-12-17 06:08] LABS: Anion Gap 4 (5-15); BUN 14 mg/dL (7-18); BUN/Creat Ratio 16.6 RATIO (10-20); Chloride 110 mmol/L (98-107); Creatinine, Serum 0.84 mg/dL (0.70-1.30); EST Glomerular Filtration Rate 96 mL/min (>60); Est Glom Filt Rate - Afr Amer 116 mL/min (>60); Glucose 97 mg/dL (74-106); Potassium 3.6 mmol/L (3.5-5.1); Sodium Level 140 mmol/L (136-145); Vancomycin, Trough Level 24.8 ug/mL (5.0-15.0)
[2021-12-17] MEDS: Magnesium Chloride 64 MG Delay Rel.Tablet PO ×3 (06:29→22:40)
[2021-12-17] MEDS: Gabapentin 100 MG Capsule 200 MG PO ×3 (06:29→22:41)
--- NOTE | 2021-12-17 06:36 | PCM.RX.CS ---
Consult Pharmacy has been consulted to manage selected antiobiotic: Vancomycin Type of Consult: Follow-up Suspected Infection: Skin/Soft tissue Prior Doses of Antibiotics Received/Current Regimen: Medications Discontinued Medications Vancomycin HCl 1,500 mg/ (Sodium Chloride) 530 mls @ 250 mls/hr IV Q12H [place] Last Admin: 12/17/21 06:27 Dose: Not Given Labs: Sodium 140 mmol/L (136-145) 12/17/21 05:25 Potassium 3.6 mmol/L (3.5-5.1) 12/17/21 05:25 Chloride 110 mmol/L (98-107) H 12/17/21 05:25 Carbon Dioxide 26.0 mmol/L (21.0-32.0) 12/17/21 05:25 Anion Gap 4 (5-15) L 12/17/21 05:25 BUN 14 mg/dL (7-18) 12/17/21 05:25 Creatinine 0.84 mg/dL (0.70-1.30) 12/17/21 05:25 Est GFR (MDRD) Af Amer 116 mL/min (>60) 12/17/21 05:25 Est GFR (MDRD) Non-Af 96 mL/min (>60) 12/17/21 05:25 BUN/Creatinine Ratio 16.6 RATIO (10-20) 12/17/21 05:25 Glucose 97 mg/dL (74-106) 12/17/21 05:25 Vancomycin Trough 24.8 ug/mL (5.0-15.0) H 12/17/21 05:25 Microbiology: Microbiology 12/15/21 17:15 Wound Abcess - Face Gram Stain - Final Weight used for dosin.4 kg Estimated Creatinine Clearance: 91 Goal Trough: 15-20 mcg/mL Pharmacy Plan for Drug Dosing: Vancomycin trough level was high at 24.8. It was an appropriate 11.5hr trough. Nursing held the 4/15 a.m. dose, and a random vancomycin level will be drawn in 12 hours. Further dosing will be calculated from those results. Pharmacy Service will continue to monitor and adjust dosing as required. Follow-Up Labs: Trough Vancomycin - random Labs to be done on [date and time ordered]: 12/17/21 @7355
[2021-12-17] MEDS: Sertraline 100 MG Tablet PO (08:09)
[2021-12-17] MEDS: Allopurinol 100 MG Tablet PO (08:09)
[2021-12-17] MEDS: Folic Acid 1 MG Tablet PO (08:09)
[2021-12-17] MEDS: Potassium Chloride Oral Tablet 20 MEQ PO (08:09)
[2021-12-17] MEDS: Ascorbic Acid 500 MG Tablet PO (08:09)
[2021-12-17] MEDS: Pantoprazole Sodium 40 MG Tablet PO ×2 (08:09→22:45)
[2021-12-17] MEDS: dilTIAZem CD 240 MG Capsule PO (08:10)
[2021-12-17] MEDS: Carvedilol 6.25 MG Tablet PO ×2 (08:10→22:41)
[2021-12-17 08:37] VITALS: BP 109/82; PULSE 79; RESP 16; TEMP 36.7; O2SAT 96
[2021-12-17 09:32] VITALS: O2SAT 96
[2021-12-17] MEDS: oxyCODONE 5 MG Tablet 10 MG PO (12:03)
--- NOTE | 2021-12-17 12:14 | PCM.PN.HOSP ---
Documented by User: Estrada CAREY 12/17/21 15:05 Subjective Subjective Patient is a 71-year-old male comfortably resting in bed, alert and oriented x3. Denies any difficulty chewing or swallowing food. Denies trismus. Does not appear in acute distress. Objective Data Objective Data Vital Signs: Vital Signs Temp Pulse Resp BP Pulse Ox 98.1 F 79 16 109/82 H 96 12/17/21 08:37 12/17/21 08:37 12/17/21 08:37 12/17/21 08:37 12/17/21 09:32 Oxygen Delivery Method Room Air Weight: 188 lb 4.784 oz Body Mass Index (BMI) 25.5 Intake & Output: Intake and Output for Last 24 Hours 12/15/21 12/16/21 12/17/21 23:59 23:59 23:59 Intake Total 825 / 825 2753.25 / 2753.25 1339.00 / 1339.00 Balance 825 / 825 2753.25 / 2753.25 1339.00 / 1339.00 Lab / Micro Data Result Diagrams: 12/17/21 05:25 12/17/21 05:25 Labs: Laboratory Results - last 24 hr 12/17/21 05:25: WBC 5.4, RBC 3.23 L, Hgb 9.2 L, Hct 30.0 L, MCV 92.9, MCH 28.5, MCHC 30.7 L, RDW Std Deviation 60.1 H, RDW Coeff of [place] 17.3 H, Plt Count 159, MPV 9.0, Immature Gran % (Auto) 0.600, Neut % (Auto) 52.6, Lymph % (Auto) 33.4, [place] % (Auto) 10.6 H, Eos % (Auto) 2.4, Baso % (Auto) 0.4, Absolute Neuts (auto) 2.8, Absolute Lymphs (auto) 1.80, Nucleated RBC % 0 12/17/21 05:25: Sodium 140, Potassium 3.6, Chloride 110 H, Carbon Dioxide 26.0, Anion Gap 4 L, BUN 14, Creatinine 0.84, Estim Creat Clear Calc 91.10, Est GFR (MDRD) Af Amer 116, Est GFR (MDRD) Non-Af 96, BUN/Creatinine Ratio 16.6, Glucose 97, Calcium 8.0 L 12/17/21 05:25: Vancomycin Trough 24.8 H Micro: Microbiology 12/15/21 17:15 Wound Abcess - Face Gram Stain - Final 12/15/21 17:15 Wound Abcess - Face Wound Culture - Preliminary GPC Poss Enterococcus sp Alpha Hemolytic Streptococcus Yeast, not Tatum albicans 12/16/21 16:25 Wound Abcess - Maxillary Gram Stain - Final Physical Exam Const alert, oriented x3 and no apparent distress HEENT HEENT Narrative: Ulcer on the right mandible has ceased draining, still with selling. Denies trisumus or difficultly swallowing. Eyes PERRL, EOMs intact bilaterally and conjunctivae normal Neck no lymphadenopathy, supple and no JVD Resp normal respiratory effort, no retractions and no use of accessory muscles Cardio regular rate, regular rhythm and no JVD GI normal to inspection, nondistended, normoactive bowel sounds Extremity normal to inspection Neuro CN's II-XII intact bilaterally Psych affect normal Assessment & Plan Assessment/Plan (1) Abscess of submandibular region: PLAN: Day 2 Discharge planning: Patient to discharge home when medically ready. 1) right submandibular abscess Patient denies any difficulty swallowing, breathing or trismus. CT of the neck demonstrated 4 cm abscess in the right submandibular space, no evidence of osteomyelitis. Assessed by Oral and Maxillofacial surgeon, no indication for acute surgical intervention, will follow up as an outpatient. Wound culture with gram-positive cocci as well as alphahemolytic strep. Continue Unasyn and await sensitivities. 2) multiple myeloma Complicates #1, has been off of chemotherapy for the past 2 months. 3) chronic HFpEF Not in acute exacerbation, most recent echocardiogram from 2019 demonstrates normal LV size, an EF of 60% and stage I diastolic dysfunction. Continue carvedilol. 4) depression Continue Zoloft. 5) peripheral neuropathy Continue gabapentin and Remeron. 6) BPH Continue Flomax. 7) iron deficiency anemia Hemoglobin is at baseline, stable. 8) gout Continue allopurinol. 9) GERD Continue PPI. DVT prophylaxis - SCDs Patient seen by Estrada Andrews PA-C, under the supervision of Dr. Power. Time spent on patient care: 10 minutes. Documented by User: Dr. Siva Power DO 12/17/21 15:22 Subjective Subjective Jaw feeling better. Still draining. Able to eat without difficulty. Objective Data Lab / Micro Data Result Diagrams: 12/17/21 05:25 12/17/21 05:25 Physical Exam Const Constitutional Narrative: Decreased swelling over the lower right mandible. Still with foul-smelling purulent material expressed but not as copious as previous. Resp normal respiratory effort and no retractions Cardio regular rate, regular rhythm, S1 normal heart sound and S2 normal heart sound GI normal to inspection, nondistended, normoactive bowel sounds Assessment & Plan Assessment/Plan (1) Abscess of submandibular region: PLAN: Patient seen and examined independently. Data and vitals reviewed. I agree with the above note by the physician contact lens assistant. 1. right submandibular abscess Improving no trismus, dyspnea may be otogenic no lugwig's angina at this time wound culture performed and pending on vanc and ampicillin/SB Cultures growing out gram-positive cocci possible Enterococcus, alpha hemolytic strep and yeast. Yeast like a contaminant. Continue with current antibiotics and adjust antibiotics according to the final culture results. Patient was seen by Dr. Alcazar and since it started draining no surgical intervention is necessary at this time but patient will need further follow-up as outpatient as a still is concerned that this could be odontogenic despite it draining out under his mandible. 2. Multiple myeloma complicates care and recovery reports not taking chemo therapy for about 2 months. 3. Chronic conditions: HFREF: compensated. on carvedilol Peripheral neuropathy Depression: SSRI BPH: tamsulosin Iron-deficiency anemia: stable 4. VTE prophylaxis: SCDs for now. Greater than 20minutes reviewing data, patient encounter and management. Charges/Coding Visit Charges Inpatient E&M: 24012 Subs Hosp L2
[2021-12-17 12:29] VITALS: BP 128/76; PULSE 78; RESP 16; TEMP 36.7; O2SAT 99
[2021-12-17 14:54] VITALS: BP 111/64; PULSE 77; RESP 16; TEMP 36.6; O2SAT 97
[2021-12-17 17:34] LABS: Vancomycin, Random Level 17.1 ug/mL (0.0-15.0)
--- NOTE | 2021-12-17 18:36 | PCM.RX.CS ---
Consult Pharmacy has been consulted to manage selected antiobiotic: Vancomycin Type of Consult: Follow-up Suspected Infection: Other Labs: Sodium 140 mmol/L (136-145) 12/17/21 05:25 Potassium 3.6 mmol/L (3.5-5.1) 12/17/21 05:25 Chloride 110 mmol/L (98-107) H 12/17/21 05:25 Carbon Dioxide 26.0 mmol/L (21.0-32.0) 12/17/21 05:25 Anion Gap 4 (5-15) L 12/17/21 05:25 BUN 14 mg/dL (7-18) 12/17/21 05:25 Creatinine 0.84 mg/dL (0.70-1.30) 12/17/21 05:25 Est GFR (MDRD) Af Amer 116 mL/min (>60) 12/17/21 05:25 Est GFR (MDRD) Non-Af 96 mL/min (>60) 12/17/21 05:25 BUN/Creatinine Ratio 16.6 RATIO (10-20) 12/17/21 05:25 Glucose 97 mg/dL (74-106) 12/17/21 05:25 Vancomycin Trough 24.8 ug/mL (5.0-15.0) H 12/17/21 05:25 Random Vancomycin 17.1 ug/mL (0.0-15.0) H 12/17/21 16:51 Microbiology: Microbiology 12/15/21 17:15 Wound Abcess - Face Gram Stain - Final 12/15/21 17:15 Wound Abcess - Face Wound Culture - Preliminary GPC Poss Enterococcus sp Alpha Hemolytic Streptococcus Yeast, not Tatum albicans 12/16/21 16:25 Wound Abcess - Maxillary Gram Stain - Final Goal Trough: 15-20 mcg/mL Pharmacy Plan for Drug Dosing: VANCOMYCIN LEVEL RECEIVED Current Vancomycin Dose: pt was previously on 1250mg q12. dose was on hold due to elevated trough Number of Doses Received: Vancomycin Level: random level resulted at 17.1 Hours Since Last Dose: 23 Renal Function: SrCr 0.84 Renal Function Trend: stable Lab/Micro: Vancomycin Plan/Comments: recommend restarting Vancomycin at a dose of 1000mg q12h (,). checking trough before the 4th dose Pending Level: 12/19/21 at 0730 Pharmacy Service will continue to monitor and adjust dosing as required. Follow-Up Labs: Trough Vancomycin - 12/19/21 at 0730
[2021-12-17] MEDS: Vancomycin IV 1,000 MG/200 ML BAG 200 MG IV (19:58)
[2021-12-17 20:07] VITALS: BP 124/72; PULSE 79; RESP 16; TEMP 37; O2SAT 97
[2021-12-17] MEDS: Tamsulosin HCl 0.4 MG Capsule PO (22:42)
[2021-12-17] MEDS: Mirtazapine 15 MG Tablet PO (22:45)
[2021-12-18 05:04] VITALS: BP 126/72; PULSE 75; RESP 18; TEMP 36.9; O2SAT 96
[2021-12-18] MEDS: Gabapentin 100 MG Capsule 200 MG PO (06:34)
[2021-12-18] MEDS: Magnesium Chloride 64 MG Delay Rel.Tablet PO (06:34)
[2021-12-18] MEDS: Vancomycin IV 1,000 MG/200 ML BAG 200 MG IV (08:29)
[2021-12-18 08:33] VITALS: BP 120/81; PULSE 84; RESP 18; TEMP 36.3; O2SAT 97
--- NOTE | 2021-12-18 09:58 | PCM.DC ---
Discharge Instructions Diet Discharge Diet: No restrictions Activity Discharge Activity: Return to Normal Activity Weight Bearing Status: Weight bearing as tolerated Dressing / Incision Call your doctor if you observe: Fever of 101 or Higher, Numbness or Tingling, Shortness of breath, Dizziness, Chest pain, Increased palpitations (irregular heartbeat) and Calf discomfort Follow Up Care Please Follow Up With: Primary care provider When: Within the next two weeks. Test Results: Test results from this visit will be discussed in further detail at your follow-up appointment, if applicable. Discharge Plan Admission Admit Date/Time: 12/15/21 21:01 Primary Reason for Your Visit: Submandibular abcess. Attending Provider: Siva Power Primary Care Provider: Onur Garcia Consulting Providers: Jones Alcazar Instructions Additional Instructions / Restrictions: * Coreg 6.25mg BID not included on on home medication list. Patient reports no need for refill, continue taking as prescribed. Discharge Orders/Prescriptions Prescriptions: New amoxicillin-pot clavulanate 875-125 mg tablet 1 tab PO BID Qty: 14 RF: 0 Continued albuterol sulfate [Ventolin HFA] 90 mcg/actuation HFA aerosol inhaler 2 puff inhalation Q4H PRN (Reason: shortness of breath or wheezing) Qty: 18 RF: 6 ferrous sulfate 325 MG tablet 325 mg PO BID RF: 0 sertraline 100 mg Tablet 100 mg PO DAILY RF: 0 folic acid 1 mg Tablet 1 mg PO DAILY RF: 0 ascorbic acid (vitamin C) [Vitamin C] 500 mg Tablet 500 mg PO DAILY RF: 0 calcium carbonate-vitamin D3 [Oyster Shell Calcium-Vit D3] 500 mg-5 mcg (200 unit) tablet 1 tab PO BIDCM RF: 0 acetaminophen [Tylenol] 325 mg Tablet 650 mg PO Q6H PRN PRN (Reason: PAIN 1-10) Qty: 0 RF: 0 potassium chloride [Klor-Con M20] 20 mEq tablet,ER particles/crystals 20 meq PO DAILYCM 30 Days Qty: 30 RF: 0 tamsulosin 0.4 mg capsule 0.4 mg PO QHS RF: 0 aspirin 81 mg tablet,delayed release (DR/EC) 81 mg PO BREAKFAST RF: 0 mirtazapine 15 mg tablet 15 mg PO QHS RF: 0 pantoprazole 40 mg tablet,delayed release (DR/EC) 40 mg PO DAILY RF: 0 gabapentin 100 mg capsule 200 mg PO TID RF: 0 diltiazem HCl 240 mg capsule,extended release 24hr 240 mg PO DAILY RF: 0 allopurinol 100 mg tablet 100 mg PO DAILY RF: 0 Mag 64 64 mg tablet,delayed release (DR/EC) 64 mg PO TID RF: 0 Referrals / Follow Up: Onur Garcia MD [Primary Care Provider] - Within 2 Weeks Jones Alcazar DDS [STAFF PHYSICIAN] - See Referral Note (Call Dr. Alcazar's office [place] to establish a follow up appointment. ) Disposition Disposition (needs filled in before D/C Order can be placed): Home, Self Care
[2021-12-18] MEDS: 0.9% Saline Lock 10 ML Syringe IV (10:19)
[2021-12-18] MEDS: Ascorbic Acid 500 MG Tablet PO (10:20)
[2021-12-18] MEDS: dilTIAZem CD 240 MG Capsule PO (10:20)
[2021-12-18] MEDS: Potassium Chloride Oral Tablet 20 MEQ PO (10:20)
[2021-12-18] MEDS: Allopurinol 100 MG Tablet PO (10:20)
[2021-12-18] MEDS: Sertraline 100 MG Tablet PO (10:20)
[2021-12-18] MEDS: Pantoprazole Sodium 40 MG Tablet PO (10:20)
[2021-12-18] MEDS: Carvedilol 6.25 MG Tablet PO (10:21)
[2021-12-18] MEDS: Folic Acid 1 MG Tablet PO (10:21)
--- NOTE | 2021-12-18 11:03 | DS.PCM_ITS ---
Documented by User: Estrada CAREY 12/18/21 11:10 Providers Date of Admission: 12/15/21 Date of Discharge: 12/18/21 Primary Care Physician: Dr. Onur Garcia MD Consultations 12/15/21 21:58 Consult: Oral Surgeon Routine Consulting Provider: Jones Alcazar Reason for Consult: submandibular abscess with pus from tooth 28 EMERGENT Consult: No MD Notified: Yes Date Notified: 12/16/21 Time Notified: 08:11 Method of Notification: Answering Service Comments:: please call in am Reason For Visit: SUBMANDIBULAR ABSCESS Diagnosis Discharge Diagnosis (1) Abscess of submandibular region: Status: Acute Code(s): K12.2 - Cellulitis and abscess of mouth Medications at Discharge Home Medications ferrous sulfate 325 mg PO BID 06/18/20 folic acid 1 mg PO DAILY 10/09/21 sertraline 100 mg PO DAILY 10/09/21 ascorbic acid (vitamin C) [Vitamin C] 500 mg PO DAILY 10/12/21 calcium carbonate-vitamin D3 [Oyster Shell Calcium-Vit D3] 1 tab PO BIDCM 10/25/21 acetaminophen [Tylenol] 650 mg PO Q6H PRN PRN #0 tab 11/03/21 potassium chloride [Klor-Con M20] 20 meq PO DAILYCM 30 Days #30 tab 11/03/21 aspirin 81 mg PO BREAKFAST 11/16/21 gabapentin 200 mg PO TID 11/16/21 mirtazapine 15 mg PO QHS 11/16/21 pantoprazole 40 mg PO DAILY 11/16/21 tamsulosin 0.4 mg PO QHS 11/16/21 albuterol sulfate 90 mcg/actuation aerosol inhaler 2 puff INHALATION Q4H PRN #18 g 11/19/21 Mag 64 64 mg PO TID 12/16/21 allopurinol 100 mg PO DAILY 12/16/21 diltiazem HCl 240 mg PO DAILY 12/16/21 amoxicillin-pot clavulanate 1 tab PO BID #14 tab 12/18/21 Hospital Course Summary of Care Provided Minutes Spent on Discharge: 20 Hospital Course: Patient is a 71-year-old male who was admitted to [facility] on 12/15/2021 for evaluation and management of right submandibular abscess. Hospital course and management as below. 1) right submandibular abscess Patient denies any difficulty swallowing, breathing or trismus. CT of the neck demonstrated 4 cm abscess in the right submandibular space, no evidence of osteomyelitis. Assessed by Oral and Maxillofacial surgeon, no indication for acute surgical intervention, will follow up as an outpatient. Wound culture positive for Strep anginosis, Streptococcus mitis/oralis and Yeast organism with sensitivities to penicllins. Will discharge on 7-day course of Augmentin twice daily, patient is to follow-up with Dr. Alcazar as soon as possible. 2) multiple myeloma Complicates #1, has been off of chemotherapy for the past 2 months. 3) chronic HFpEF Not in acute exacerbation, most recent echocardiogram from 2019 demonstrates normal LV size, an EF of 60% and stage I diastolic dysfunction. Continue carvedilol. 4) depression Continue Zoloft. 5) peripheral neuropathy Continue gabapentin and Remeron. 6) BPH Continue Flomax. 7) iron deficiency anemia Hemoglobin is at baseline, stable. 8) gout Continue allopurinol. 9) GERD Continue PPI. Patient seen by Estrada Andrews PA-C, under the supervision of Dr. Power. Time spent on patient care: 20 minutes. Physical Exam Narrative Patient is a 71-year-old male comfortably resting in bed eating breakfast, alert and orient x3. Patient denies any difficulty chewing, swallowing or trismus. Const alert, oriented x3 and no apparent distress HEENT normocephalic, head/scalp atraumatic and hearing grossly normal bilaterally Eyes conjunctivae normal Neck no lymphadenopathy, supple and no JVD Resp normal respiratory effort, no retractions and no use of accessory muscles Cardio regular rate, regular rhythm and no JVD GI normal to inspection, nondistended, normoactive bowel sounds Extremity normal to inspection Skin no rashes or lesions noted Neuro CN's II-XII intact bilaterally Psych affect normal Weight / BMI Weight Weight: 188 lb 4.784 oz Body Mass Index (BMI) 25.5 ABG / Lab / Microbiology Data Result Diagrams: 12/17/21 05:25 12/17/21 05:25 Laboratory: Laboratory Results - last 24 hr 12/17/21 16:51: Random Vancomycin 17.1 H Microbiology: Microbiology 12/16/21 16:25 Wound Abcess - Maxillary Gram Stain - Final 12/16/21 16:25 Wound Abcess - Maxillary Wound Culture - Preliminary Coag Negative Staph 12/15/21 17:15 Wound Abcess - Face Gram Stain - Final 12/15/21 17:15 Wound Abcess - Face Wound Culture - Preliminary Strep anginosus Streptococcus mitis/ oralis Yeast, not Tatum albicans D/C Instructions Discharge Diet: No restrictions Weight Bearing Status: Weight bearing as tolerated Call your doctor if you observe: Fever of 101 or Higher, Numbness or Tingling, Shortness of breath, Dizziness, Chest pain, Increased palpitations (irregular heartbeat) and Calf discomfort Please Follow Up With: Primary care provider When: Within the next two weeks. Meaningful Use Info Meaningful Use Diagnoses (Choose all that apply): None applicable Discharge Plan Admission Admit Date/Time: 12/15/21 21:01 Primary Reason for Your Visit: Submandibular abcess. Attending Provider: Siva Power Primary Care Provider: Onur Garcia Consulting Providers: Jones Alcazar Instructions Additional Instructions / Restrictions: * Coreg 6.25mg BID not included on on home medication list. Patient reports no need for refill, continue taking as prescribed. Discharge Orders/Prescriptions Prescriptions: New amoxicillin-pot clavulanate 875-125 mg tablet 1 tab PO BID Qty: 14 RF: 0 Continued albuterol sulfate [Ventolin HFA] 90 mcg/actuation HFA aerosol inhaler 2 puff inhalation Q4H PRN (Reason: shortness of breath or wheezing) Qty: 18 RF: 6 ferrous sulfate 325 MG tablet 325 mg PO BID RF: 0 sertraline 100 mg Tablet 100 mg PO DAILY RF: 0 folic acid 1 mg Tablet 1 mg PO DAILY RF: 0 ascorbic acid (vitamin C) [Vitamin C] 500 mg Tablet 500 mg PO DAILY RF: 0 calcium carbonate-vitamin D3 [Oyster Shell Calcium-Vit D3] 500 mg-5 mcg (200 unit) tablet 1 tab PO BIDCM RF: 0 acetaminophen [Tylenol] 325 mg Tablet 650 mg PO Q6H PRN PRN (Reason: PAIN 1-10) Qty: 0 RF: 0 potassium chloride [Klor-Con M20] 20 mEq tablet,ER particles/crystals 20 meq PO DAILYCM 30 Days Qty: 30 RF: 0 tamsulosin 0.4 mg capsule 0.4 mg PO QHS RF: 0 aspirin 81 mg tablet,delayed release (DR/EC) 81 mg PO BREAKFAST RF: 0 mirtazapine 15 mg tablet 15 mg PO QHS RF: 0 pantoprazole 40 mg tablet,delayed release (DR/EC) 40 mg PO DAILY RF: 0 gabapentin 100 mg capsule 200 mg PO TID RF: 0 diltiazem HCl 240 mg capsule,extended release 24hr 240 mg PO DAILY RF: 0 allopurinol 100 mg tablet 100 mg PO DAILY RF: 0 Mag 64 64 mg tablet,delayed release (DR/EC) 64 mg PO TID RF: 0 Referrals / Follow Up: Onur Garcia MD [Primary Care Provider] - Within 2 Weeks Jones Alcazar DDS [STAFF PHYSICIAN] - See Referral Note (Call Dr. Alcazar's office [place] to establish a follow up appointment. ) Disposition Disposition (needs filled in before D/C Order can be placed): Home, Self Care Documented by User: Dr. Siva Power DO 12/18/21 11:57 Providers Date of Admission: 12/15/21 Reason For Visit: SUBMANDIBULAR ABSCESS Medications at Discharge Home Medications ferrous sulfate 325 mg PO BID 06/18/20 folic acid 1 mg PO DAILY 10/09/21 sertraline 100 mg PO DAILY 10/09/21 ascorbic acid (vitamin C) [Vitamin C] 500 mg PO DAILY 10/12/21 calcium carbonate-vitamin D3 [Oyster Shell Calcium-Vit D3] 1 tab PO BIDCM 10/25/21 acetaminophen [Tylenol] 650 mg PO Q6H PRN PRN #0 tab 11/03/21 potassium chloride [Klor-Con M20] 20 meq PO DAILYCM 30 Days #30 tab 11/03/21 aspirin 81 mg PO BREAKFAST 11/16/21 gabapentin 200 mg PO TID 11/16/21 mirtazapine 15 mg PO QHS 11/16/21 pantoprazole 40 mg PO DAILY 11/16/21 tamsulosin 0.4 mg PO QHS 11/16/21 albuterol sulfate 90 mcg/actuation aerosol inhaler 2 puff INHALATION Q4H PRN #18 g 11/19/21 Mag 64 64 mg PO TID 12/16/21 allopurinol 100 mg PO DAILY 12/16/21 diltiazem HCl 240 mg PO DAILY 12/16/21 amoxicillin-pot clavulanate 1 tab PO BID #14 tab 12/18/21 Hospital Course Operations None Procedures None Summary of Care Provided Minutes Spent on Discharge: 32 Hospital Course: Patient seen and examined independently. Data and vitals reviewed. I agree with the above note by the physician administrative support assistant. 1. right submandibular abscess Improving no trismus, dyspnea may be otogenic no lugwig's angina at this time wound culture showing Strep anginosus and mitis/oralis. Chin cx showing [employer]. Overall improved will discharge with Augmentin. Patient was seen by Dr. Alcazar and since it started draining no surgical intervention is necessary at this time but patient will need further follow-up as outpatient as a still is concerned that this could be odontogenic despite it draining out under his mandible. Physical Exam HEENT normocephalic HEENT Narrative: lesion underneath right mandible with scant purulent fluid. Neck no lymphadenopathy ABG / Lab / Microbiology Data Result Diagrams: 12/17/21 05:25 12/17/21 05:25 Discharge Plan Admission Admit Date/Time: 12/15/21 21:01 Primary Reason for Your Visit: Submandibular abcess. Attending Provider: Siva Power Primary Care Provider: Onur Garcia Consulting Providers: Jones Alcazar Instructions Additional Instructions / Restrictions: * Coreg 6.25mg BID not included on on home medication list. Patient reports no need for refill, continue taking as prescribed. Discharge Orders/Prescriptions Prescriptions: New amoxicillin-pot clavulanate 875-125 mg tablet 1 tab PO BID Qty: 14 RF: 0 Continued albuterol sulfate [Ventolin HFA] 90 mcg/actuation HFA aerosol inhaler 2 puff inhalation Q4H PRN (Reason: shortness of breath or wheezing) Qty: 18 RF: 6 ferrous sulfate 325 MG tablet 325 mg PO BID RF: 0 sertraline 100 mg Tablet 100 mg PO DAILY RF: 0 folic acid 1 mg Tablet 1 mg PO DAILY RF: 0 ascorbic acid (vitamin C) [Vitamin C] 500 mg Tablet 500 mg PO DAILY RF: 0 calcium carbonate-vitamin D3 [Oyster Shell Calcium-Vit D3] 500 mg-5 mcg (200 unit) tablet 1 tab PO BIDCM RF: 0 acetaminophen [Tylenol] 325 mg Tablet 650 mg PO Q6H PRN PRN (Reason: PAIN 1-10) Qty: 0 RF: 0 potassium chloride [Klor-Con M20] 20 mEq tablet,ER particles/crystals 20 meq PO DAILYCM 30 Days Qty: 30 RF: 0 tamsulosin 0.4 mg capsule 0.4 mg PO QHS RF: 0 aspirin 81 mg tablet,delayed release (DR/EC) 81 mg PO BREAKFAST RF: 0 mirtazapine 15 mg tablet 15 mg PO QHS RF: 0 pantoprazole 40 mg tablet,delayed release (DR/EC) 40 mg PO DAILY RF: 0 gabapentin 100 mg capsule 200 mg PO TID RF: 0 diltiazem HCl 240 mg capsule,extended release 24hr 240 mg PO DAILY RF: 0 allopurinol 100 mg tablet 100 mg PO DAILY RF: 0 Mag 64 64 mg tablet,delayed release (DR/EC) 64 mg PO TID RF: 0 Referrals / Follow Up: Onur Garcia MD [Primary Care Provider] - Within 2 Weeks Jones Alcazar DDS [STAFF PHYSICIAN] - See Referral Note (Call Dr. Alcazar's office [place] to establish a follow up appointment. ) Disposition Disposition (needs filled in before D/C Order can be placed): Home, Self Care Charges/Coding Visit Charges Inpatient E&M: 98621 Disch Hosp
== END 2021-12-18 12:05 | disposition home or self-care (01) | DRG 158 ==
LOC: ED 20:17 → MS3 23:06
PROVIDERS: Nurse Practitioner Family; Admitting Provider Hospitalist; Emergency Provider Emergency Medicine; PCP Family Medicine
DX: K12.2 Cellulitis and abscess of mouth (principal); D84.9 Immunodeficiency, unspecified; C90.00 Multiple myeloma not having achieved remission; I50.32 Chronic diastolic (congestive) heart failure; D50.9 Iron deficiency anemia, unspecified; K21.9 Gastro-esophageal reflux disease without esophagitis; F32.A Depression, unspecified; I11.0 Hypertensive heart disease with heart failure; G62.9 Polyneuropathy, unspecified; M10.9 Gout, unspecified; Z79.82 Long term (current) use of aspirin; Z79.899 Other long term (current) drug therapy
CPT/HCPCS: 36415; 36591; 70491; 80048; 80202; 85025; 87070; 87077; 87186; 87205; 99283; J7030; J7040; J7050; Q9967; A4216; J0295

== ENCOUNTER 2021-12-29 08:33 | Day surgery (SDC) | payer MEDICARE, BC, SELFPAY ==
[2021-12-29] VITALS (7 sets, daily range): BP systolic 148–177; BP diastolic 79–89; PULSE 73–94; RESP 16–18; TEMP 36.1–36.7; O2SAT 94–99; BMI 25.9
--- NOTE | 2021-12-29 | PROS_PTH ---
PATIENT: NIDIA HICKMAN [place]: [facility] [place]#:[id number] AGE/SX: 71/M ROOM: RE12/29/[address]: Dr. Zeke Oliver MD : 1950 BED: DIS: 12/29/2021 SPEC #: [id number] RECD: 12/29/21 12:26 STATUS: JOSHUA SEALS #: [id number] JOI: 12/29/21 00:[address]: Zeke Oliver DEPT: SURGICAL PATHOLOGY RECD BY: Clarence Leonard ENTERED: 12/29/21 12:27 SP TYPE: TURP OTHR DR: Dr. Onur Garcia MD Tissues: Prostate, NOS Procedures: Surgery Specimen Level IV HEADER OPERATION: Transurethral resection of prostate with Olympus PRE-OP DIAGNOSIS: Benign prostatic hypertrophy with obstruction TISSUE SUBMITTED: Prostate pieces MICROSCOPIC DIAGNOSIS Prostate pieces, Transurethral resection: Benign prostatic hyperplasia, glandular and stromal type. See comment. COMMENT Immunohistochemistry ([id number]) supports the above diagnosis. MICROSCOPIC DESCRIPTION Slides are reviewed. GROSS DESCRIPTION Received is one container labeled with the patient's name and designated prostate pieces. The specimen consists of multiple irregular fragments of pink-bernstein, rubbery, soft tissue that in aggregate weigh 3.2 gm and measure in aggregate 3 x 3 x 1 cm. The entire specimen is submitted in three cassettes. / SJ:rg 12/29/2021 TC:5 CPT: 11410
--- NOTE | 2021-12-29 | IMM_PTH ---
PATIENT: NIDIA HICKMAN LOC: [facility] – [place] U#:[id number] AGE/SX: 71/M ROOM: RE12/29/[address]: Dr. Zeke Oliver MD : 1950 BED: DIS: 12/29/2021 SPEC #: [id number] RECD: 12/30/21 13:22 STATUS: JOSHUA REQ #: [id number] JOI: 12/29/21 00:[address]: Zeke Oliver DEPT: IMMUNOHISTOCHEMISTRY RECD BY: Elise Martin ENTERED: 12/30/21 13:23 SP TYPE: IMMUNO OTHR DR: Dr. Onur Garcia MD Tissues: Prostate, NOS Procedures: 34BE12 (add) P40 (add) 34BE12 (initial) PHYSICIAN & INSTITUTION [place] [id number] SPECIMEN INFORMATION: Tissue Source: Prostate pieces Clinical Info: BPH with obstruction Specimen Number: [id number] CPT code: 77862, 33894 x5 METHODOLOGY: Deparaffinized sections of prefer/formalin-fixed tissue or PAP/DQ stained slides are incubated with monoclonal/polyclonal antibodies/oligonucleotide probes. Localization is made via biotin free immunoperoxidase method. Appropriate controls are performed and reacted as expected. Results on target cell population are indicated in the following table: RESULTS: ANTIBODY / CLONE RESULT Block 1 P40 (BC28) positive 34BE12 (34BE12) positive Block 2 P40 (BC28) positive 34BE12 (34BE12) positive Block 3 P40 (BC28) positive 34BE12 (34BE12) positive These tests were developed and their performance characteristics determined by [facility]. They may not have been cleared or approved by the U.S. Food and Drug Administration. The FDA has determined that such clearance or approval is not necessary. The above immunohistochemical/dualISH markers are ordered and reviewed by the Pathologist. INTERPRETATION: Prostate pieces, transurethral resection: Benign prostatic hyperplasia. SJ:blanca 12/31/2021
[2021-12-29 09:57] LABS: Prothrombin Time (Protime)PT. 12.9 SECONDS (11.7-14.9)
[2021-12-29 09:58] LABS: Partial Thromboplast Time 32.1 Seconds (24.1-36.2)
[2021-12-29 09:59] LABS: AST(SGOT) 24 U/L (15-37); Alanine Aminotransfer ALT/SGPT 13 U/L (16-61); Albumin, Serum 3.2 g/dL (3.2-5.0); Alkaline Phosphatase 130 U/L (45-117); Bilirubin, Direct 0.09 mg/dL (0.00-0.30); Globulin 3.8 g/dL (2.2-4.2)
[2021-12-29] MEDS: Cefazolin 2 GM in 0.9% Normal Saline 100 ML IV (10:02)
--- NOTE | 2021-12-29 10:38 | HP.PCM_ITS ---
HPI - General HPI Narrative NIDIA HICKMAN, is a 71 M who presents transurethral resection of the prostate for recurrent and residual prostatic cyst tissue causing obstruction [facility] Medical History Acute deep vein thrombosis (DVT) of left lower extremity Ambulates with cane Anemia Anemia Angiodysplasia of colon Angiodysplasia of stomach Asthma Atrial fibrillation with RVR Autonomic neuropathy Back pain BiPAP (biphasic positive airway pressure) dependence Blackout Bladder disease BPH with obstruction/lower urinary tract symptoms Cardiology follow-up encounter Chest pain, unspecified Chronic deep vein thrombosis (DVT) Closed L1 vertebral fracture Closed L2 vertebral fracture Closed T11 fracture Cognitive dysfunction Colon polyps DVT (deep venous thrombosis) Dysphagia Easy bruising Essential (primary) hypertension ETOH abuse Fatty liver Gastric reflux GI bleed History of CHF (congestive heart failure) History of COVID-19 History of edema History of hepatitis C History of stress test Hypomagnesemia Idiopathic gout Injury of head and neck Iron deficiency Lumbar spinal stenosis Lytic lesion of bone on x-ray Multiple myeloma not having achieved remission Neuropathy Obstructive sleep apnea Orthostatic hypotension Osteopenia determined by x-ray Pancytopenia Prostatic enlargement Scratched by cat Shortness of breath on exertion SVT (supraventricular tachycardia) Syncope Thrombocytopenia Thyroid nodule incidentally noted on imaging study Torn ligament Urinary (tract) obstruction Wears glasses Wears hearing aid in both ears Home Medications ferrous sulfate 325 mg PO BID 06/18/20 [History Last Taken 11/15/21] folic acid 1 mg PO DAILY 10/09/21 [History Last Taken 11/15/21] sertraline 100 mg PO DAILY 10/09/21 [History Last Taken 11/15/21] ascorbic acid (vitamin C) [Vitamin C] 500 mg PO DAILY 10/12/21 [History Last Taken 11/15/21] calcium carbonate-vitamin D3 [Oyster Shell Calcium-Vit D3] 1 tab PO BIDCM 10/25/21 [History Last Taken 11/15/21] acetaminophen [Tylenol] 650 mg PO Q6H PRN PRN #0 tab 11/03/21 [Rx Last Taken Unknown] potassium chloride [Klor-Con M20] 20 meq PO DAILYCM 30 Days #30 tab 11/03/21 [Rx Last Taken 11/15/21] gabapentin 200 mg PO TID 11/16/21 [History Last Taken 11/15/21] mirtazapine 15 mg PO QHS 11/16/21 [History Last Taken 11/15/21] pantoprazole 40 mg PO DAILY 11/16/21 [History Last Taken 12/29/21] tamsulosin 0.4 mg PO QHS 11/16/21 [History Last Taken 11/15/21] albuterol sulfate 90 mcg/actuation aerosol inhaler 2 puff INHALATION Q4H PRN #18 g 11/19/21 [Rx Last Taken Unknown] allopurinol 100 mg PO DAILY 12/16/21 [History Last Taken Unknown] amoxicillin-pot clavulanate 1 tab PO BID #14 tab 12/18/21 [Rx Last Taken Unknown] carvedilol 6.25 mg tablet 6.25 mg PO BID #60 tab 12/27/21 [Rx Last Taken 12/29/21] magnesium oxide 400 mg (241.3 mg magnesium) tablet 400 mg PO BID #60 tab 12/27/21 [Rx Last Taken Unknown] ciprofloxacin HCl [Cipro] 500 mg PO BID #10 tab 12/29/21 [Rx Last Taken Unknown] Allergy/AdvReac Type Severity Reaction Status Date / Time No Known Allergies Allergy Verified 12/29/21 09:01 Family History Mother Heart disease Hypertension Father Hypertension Surgical History History of bone marrow biopsy History of bunionectomy History of transurethral resection of prostate Hx of colonoscopy Social History household members: spouse Smoking Status: Never smoker alcohol intake: current alcohol intake frequency: 3 or more drinks per day substance use type: does not use Vital Signs Vital Signs Vital Signs: 12/29/21 09:24 Temperature 97 F L Temperature Source Temporal Pulse Rate 79 Respiratory Rate 18 Respiratory Pattern Normal Blood Pressure 177/89 H Blood Pressure Mean 118 Blood Pressure Source Monitor Blood Pressure Position Semi-Fowlers Blood Pressure Location Right Arm Pulse Ox 99 Oxygen Delivery Method Room Air Weight Weight: 87 kg Body Mass Index (BMI) 25.9 Results Lab / Micro Data Labs: Laboratory Results - last 24 hr 12/29/21 09:25: PT 12.9, INR 1.0, APTT 32.1 04/27/22 09:25: Total Bilirubin 0.40, Direct Bilirubin 0.09, AST 24, ALT 13 L, Alkaline Phosphatase 130 H, Total Protein 7.0, Albumin 3.2, Globulin 3.8
--- NOTE | 2021-12-29 10:38 | PCM.DC ---
Discharge Instructions Diet Discharge Diet: No restrictions Activity Discharge Activity: Return to Normal Activity and May Not Drive (while taking narcotic pain medications.) Dressing / Incision Call your doctor if you observe: Fever of 101 or Higher Follow Up Care Please Follow Up With: Zeke Oliver MD When: Call [phone] for an appointment Test Results: Test results from this visit will be discussed in further detail at your follow-up appointment, if applicable. Discharge Plan Admission Primary Reason for Your Visit: kandace flores Attending Provider: Zeke Oliver Primary Care Provider: Onur Garcia Discharge Orders/Prescriptions Prescriptions: New ciprofloxacin HCl [Cipro] 500 mg tablet 500 mg PO BID Qty: 10 RF: 0 Continued albuterol sulfate [Ventolin HFA] 90 mcg/actuation HFA aerosol inhaler 2 puff inhalation Q4H PRN (Reason: shortness of breath or wheezing) Qty: 18 RF: 6 ferrous sulfate 325 MG tablet 325 mg PO BID RF: 0 sertraline 100 mg Tablet 100 mg PO DAILY RF: 0 folic acid 1 mg Tablet 1 mg PO DAILY RF: 0 ascorbic acid (vitamin C) [Vitamin C] 500 mg Tablet 500 mg PO DAILY RF: 0 calcium carbonate-vitamin D3 [Oyster Shell Calcium-Vit D3] 500 mg-5 mcg (200 unit) tablet 1 tab PO BIDCM RF: 0 acetaminophen [Tylenol] 325 mg Tablet 650 mg PO Q6H PRN PRN (Reason: PAIN 1-10) Qty: 0 RF: 0 potassium chloride [Klor-Con M20] 20 mEq tablet,ER particles/crystals 20 meq PO DAILYCM 30 Days Qty: 30 RF: 0 tamsulosin 0.4 mg capsule 0.4 mg PO QHS RF: 0 mirtazapine 15 mg tablet 15 mg PO QHS RF: 0 pantoprazole 40 mg tablet,delayed release (DR/EC) 40 mg PO DAILY RF: 0 gabapentin 100 mg capsule 200 mg PO TID RF: 0 allopurinol 100 mg tablet 100 mg PO DAILY RF: 0 amoxicillin-pot clavulanate 875-125 mg tablet 1 tab PO BID Qty: 14 RF: 0 carvedilol 6.25 mg tablet 6.25 mg PO BID Qty: 60 RF: 6 magnesium oxide 400 mg (241.3 mg magnesium) tablet 400 mg PO BID Qty: 60 RF: 3 Discontinued aspirin 81 mg tablet,delayed release (DR/EC) 81 mg PO BREAKFAST RF: 0 Referrals / Follow Up: Onur Garcia MD [Primary Care Provider] - Disposition Disposition (needs filled in before D/C Order can be placed): Home, Self Care
--- NOTE | 2021-12-29 10:38 | PCM.OPRPT ---
Report of Operation Date of Procedure: 12/29/21 Pre-Operative Diagnosis: Obstruction BPH Post-Operative Diagnosis: Same Surgery/Procedure Performed:: Transurethral resection of prostate for recurrent and residual tissue causing obstruction Description of Surgical Findings:: Indication this is a 71-year-old male he underwent a TURP about 2 years ago he still having difficulty emptying his bladder with a high postvoid residuals on cystoscopy found to have some still obstructive prostate tissue in the channel causing blockage because of this I recommended we take him back to surgery for resect this obstructing tissue at the the residual tissue or or recurrent regrowth tissue in the prostatic channel patient was taken back to surgery after induction of anesthesia he was placed in dorsolithotomy position the penis and testicles were prepped and draped in usual sterile fashion went in the bladder with a 21 [place] rigid cystourethroscope and then inspected he did obstructive tissue in the channel causing blockage of the pathway I then switched over to the resectoscope and then we resected the prostatic channel mostly of the tissue was on the right side of the prostate just a little bit of tissue in the left side the sphincter was intact verumontanum was intact there is no injury or damage to the sphincter of the verumontanum after the resection was done I did a flow test had a wide open flow. Put a 20 [place] catheter in the bladder and he will go home with a catheter to gravity drainage and I will move the catheter out for voiding trial next week. This was a resection of recurrent growth tissue in the prostatic channel. Surgeon: tez Type of Anesthesia: General Admit VTE Documentation VTE Present on Admission: No VTE Mechan Device Prophylaxis: SCD's VTE Pharm Prophylaxis ordered?: No
--- NOTE | 2021-12-29 11:42 | SUR.PHASEI ---
VERY LITTLE CANTU DRAINAGE NOTED. CANTU IRRIGATED EASILY WITH 50 CC STERILE WATER X2. ASPIRATED ENTIRE 100CC WATER PLUS LONG STRINGY CLOT. TOLERATED IRRIGATION WELL.
== END 2021-12-29 13:02 | disposition home or self-care (01) ==
LOC: SDC 08:40 → AC 08:55
PROVIDERS: Anesthesiology; PCP Family Medicine; Referring Provider Urology; Visit Provider Urology
PROC: (CPT 52630; principal; 2021-12-29 10:25)
DX: N40.1 Benign prostatic hyperplasia with lower urinary tract symptoms (principal); I48.91 Unspecified atrial fibrillation; R39.14 Feeling of incomplete bladder emptying; N39.41 Urge incontinence; N32.81 Overactive bladder; R35.1 Nocturia; R33.8 Other retention of urine; I10 Essential (primary) hypertension; J45.20 Mild intermittent asthma, uncomplicated; Z79.899 Other long term (current) drug therapy; Z90.79 Acquired absence of other genital organ(s)
CPT/HCPCS: 52630; 00914; 80076; 85610; 85730; 88305; 88341; 88342; J7120; J2405

== ENCOUNTER → 2022-01-03 | Outpatient (CLI) | payer MEDICARE, BC, SELFPAY ==
[2022-01-03 12:17] LABS: Absolute Lymphocyte Count 2.07 X10^3/uL (0.83-4.51); Absolute Neutrophil Count 3.5 X10^3/uL (2.0-7.7); Basophil# 0.02 X10^3/uL; Basophil% 0.3 % (0-1); Eosinophil# 0.18 X10^3/uL; Eosinophils% 2.8 % (0-5); Hematocrit 36.1 % (40-54); Hemoglobin 10.9 g/dL (13.0-16.5); Lymphocyte # 2.07 X10^3/ul (0.83-4.51); Mean Corp Hgb Conc 30.2 g/dL (32-36); Mean Corpuscular Hgb 29.5 pg (27.0-32.0); Mean Corpuscular Volume 97.8 fL (80-94); Mean Platelet Vol. 9.9 fl (6.2-12.0); Monocyte# 0.64 X10^3/uL; Monocyte% 9.9 % (0-10); NRBC Flagged by Analyzer 0 % (0-5); Neutrophil # 3.52 X10^3/uL (2.7-7.7); Neutrophil % 54.4 % (47-70); Platelet Count 154 K/mm3 (150-450); RBC Distribution Width CV 18.1 % (11.6-14.6); RBC Distribution Width SD 64.9 fl (35.1-43.9); Red Blood Count 3.69 M/mm3 (4.6-6.2); White Blood Count 6.5 K/mm3 (4.4-11.0)
[2022-01-03 12:48] LABS: Vitamin B12 239 pg/mL (211-911)
[2022-01-03 12:51] LABS: ALB/GLOB Ratio 0.9 RATIO (0.9-2.4); AST(SGOT) 19 U/L (15-37); Alanine Aminotransfer ALT/SGPT 15 U/L (16-61); Albumin, Serum 3.2 g/dL (3.2-5.0); Alkaline Phosphatase 152 U/L (45-117); Anion Gap 5 (5-15); BUN 17 mg/dL (7-18); BUN/Creat Ratio 18.6 RATIO (10-20); Chloride 110 mmol/L (98-107); Creatinine, Serum 0.91 mg/dL (0.70-1.30); EST Glomerular Filtration Rate 87 mL/min (>60); Est Glom Filt Rate - Afr Amer 106 mL/min (>60); Globulin 3.5 g/dL (2.2-4.2); Glucose 120 mg/dL (74-106); Magnesium 1.7 mg/dL (1.6-2.6); Potassium 4.5 mmol/L (3.5-5.1); Protein, Total 6.7 g/dL (6.4-8.2); Sodium Level 143 mmol/L (136-145)
== END | disposition home or self-care (01) ==
LOC: BIMLAB 10:17
PROVIDERS: PCP Internal Medicine; Referring Provider Internal Medicine; Visit Provider Internal Medicine
DX: C90.00 Multiple myeloma not having achieved remission (principal); E83.42 Hypomagnesemia; G62.9 Polyneuropathy, unspecified
CPT/HCPCS: 36415; 80053; 82607; 83735; 85025

== ENCOUNTER → 2022-01-12 | Outpatient (CLI) | payer MEDICARE, BC, SELFPAY ==
[2022-01-12 13:49] LABS: Anion Gap 4 (5-15); BUN 14 mg/dL (7-18); BUN/Creat Ratio 15.6 RATIO (10-20); Calcium,Total 8.8 mg/dL (8.5-10.1); Chloride 110 mmol/L (98-107); EST Glomerular Filtration Rate 89 mL/min (>60); Est Glom Filt Rate - Afr Amer 108 mL/min (>60); Glucose 116 mg/dL (74-106); Magnesium 1.8 mg/dL (1.6-2.6); Potassium 4.1 mmol/L (3.5-5.1); Sodium Level 142 mmol/L (136-145)
[2022-01-24 20:07] LABS: Aldosterone, Serum 10.4 ng/dL (0.0-30.0)
[2022-01-24 20:20] LABS: Renin, Plasma 0.411 ng/mL/hr (0.167-5.380)
== END | disposition home or self-care (01) ==
LOC: LAB 12:18
PROVIDERS: PCP Internal Medicine; Visit Provider Nurse Practitioner Gerontology
DX: E87.6 Hypokalemia (principal); I10 Essential (primary) hypertension; E83.42 Hypomagnesemia
CPT/HCPCS: 36415; 80048; 82088; 83735; 84244

== ENCOUNTER → 2022-02-14 | Outpatient (CLI) | payer MEDICARE, BC, SELFPAY ==
[2022-02-14 12:11] LABS: Absolute Lymphocyte Count 1.69 X10^3/uL (0.83-4.51); Absolute Neutrophil Count 2.4 X10^3/uL (2.0-7.7); Basophil# 0.06 X10^3/uL; Basophil% 1.2 % (0-1); Hematocrit 39.1 % (40-54); Hemoglobin 12.4 g/dL (13.0-16.5); Lymphocyte # 1.69 X10^3/ul (0.83-4.51); Lymphocyte % 34.1 % (19-41); Mean Corp Hgb Conc 31.7 g/dL (32-36); Mean Corpuscular Hgb 29.9 pg (27.0-32.0); Mean Corpuscular Volume 94.2 fL (80-94); Mean Platelet Vol. 9.5 fl (6.2-12.0); Monocyte# 0.55 X10^3/uL; Monocyte% 11.1 % (0-10); NRBC Flagged by Analyzer 0 % (0-5); Neutrophil # 2.44 X10^3/uL (2.7-7.7); Neutrophil % 49.2 % (47-70); Platelet Count 128 K/mm3 (150-450); RBC Distribution Width CV 14.4 % (11.6-14.6); RBC Distribution Width SD 49.5 fl (35.1-43.9); Red Blood Count 4.15 M/mm3 (4.6-6.2)
[2022-02-14 12:17] LABS: Magnesium 1.9 mg/dL (1.6-2.6); Vitamin B12 336 pg/mL (211-911)
--- NOTE | 2022-02-15 08:12 | PFT ---
INTRODUCTION: The patient is a 71-year-old male that presents for pulmonary function studies secondary to a diagnosis of dyspnea. Respiratory therapy reported good patient effort. Bronchodilators were used during testing. INTERPRETATION: Forced expiration spirometry demonstrates no evidence of a large airways obstructive ventilatory defect with a postbronchodilator FEV1/FVC of 73%. There was no significant response to aerosolized bronchodilators. Spirograms are of good quality and plateau normally. Body plethysmography was performed and revealed a decreased TLC to 5.79 L, 83% of predicted, indicative of a mild restrictive ventilatory impairment. Diffusing capacity by single breath CO is reduced at 67% of predicted. IMPRESSION: Mild restrictive ventilatory impairment with symmetric reduction in diffusing capacity.
== END | disposition home or self-care (01) ==
LOC: PSN 10:06
PROVIDERS: PCP Internal Medicine; Referring Provider Nurse Practitioner Acute Care; Visit Provider Nurse Practitioner Acute Care
DX: R06.00 Dyspnea, unspecified (principal); E53.8 Deficiency of other specified B group vitamins; E83.42 Hypomagnesemia
CPT/HCPCS: 36415; 82607; 83735; 85025; 94060; 94726; 94729

== ENCOUNTER → 2022-02-15 | Outpatient (CLI) | payer MEDICARE, BC, SELFPAY ==
[2022-02-15 13:42] VITALS: PULSE 71; PULSE 73; PULSE 77; PULSE 82; PULSE 86; PULSE 87; PULSE 89; PULSE 91; O2SAT 95; O2SAT 96; O2SAT 97; O2SAT 98
--- NOTE | 2022-02-16 13:36 | PCM.PSN.6M ---
PSN 6 Minute Walk Test 6 Minute Walk Test 6 Minute Walk Test: 6 Minute Walk Test PSN:6-Minute Walk Test Start: 02/15/22 13:42 Freq: Status: Active Protocol: RESP.6MINW Document 02/15/22 13:42 [facility] (Rec: 02/15/22 13:47 [facility] [id number]) 6 Minute Walk Test Date Performed 02/15/22 Time Performed 13:15 Height 6 ft Weight: 86.183 kg Weight in Pounds 190.[address]: Leandra Ely [employer] Assistive device used: Cane Pre-test Oxygen Delivery Method Room Air Pulse Ox (%) 98 Pulse Rate (60-100 beats/min) 71 Dyspnea Waylon Scale (0-10) 2 1st minute Oxygen Delivery Method Room Air Pulse Ox (%) 97 Pulse Rate (60-100 beats/min) 77 Dyspnea Waylon Scale (0-10) 2 Number of Rests Taken 0 2nd minute Oxygen Delivery Method Room Air Pulse Ox (%) 95 Pulse Rate (60-100 beats/min) 82 Dyspnea [place]lon Scale (0-10) 3 Number of Rests Taken 0 Reported Symptoms Increased Work of Breathing 3rd minute Oxygen Delivery Method Room Air Pulse Ox (%) 96 Pulse Rate (60-100 beats/min) 86 Dyspnea Waylon Scale (0-10) 3 Number of Rests Taken 0 Reported Symptoms Increased Work of Breathing 4th minute Oxygen Delivery Method Room Air Pulse Ox (%) 95 Pulse Rate (60-100 beats/min) 87 Dyspnea Waylon Scale (0-10) 3 Number of Rests Taken 0 Reported Symptoms Increased Work of Breathing 5th minute Oxygen Delivery Method Room Air Pulse Ox (%) 95 Pulse Rate (60-100 beats/min) 89 Dyspnea Waylon Scale (0-10) 3 Number of Rests Taken 0 Reported Symptoms Increased Work of Breathing 6th minute Oxygen Delivery Method Room Air Pulse Ox (%) 95 Pulse Rate (60-100 beats/min) 91 Dyspnea Waylon Scale (0-10) 3 Number of Rests Taken 0 Reported Symptoms Increased Work of Breathing Post-test Oxygen Delivery Method Room Air Pulse Ox (%) 98 Pulse Rate (60-100 beats/min) 73 Dyspnea Waylon Scale (0-10) 2 Full Laps Walked 12 Partial Lap, Number of Tiles Walked 32 Total Distance Walked (ft) 740 Interpretation Interpretation: The patient ambulated 740 feet over the course of 6 minutes beginning on room air with the use of a cane. Pretesting oxygen saturation was noted to be 98% on room air. With ambulation, the myrtle oxygen saturation was 95%. There was no significant exertional oxygen desaturation. Recommendations Recommendations: There is no indication for the use of supplemental oxygen at this time.
== END | disposition home or self-care (01) ==
LOC: PSN 13:09
PROVIDERS: PCP Internal Medicine; Visit Provider Nurse Practitioner Acute Care
DX: R06.00 Dyspnea, unspecified (principal)
CPT/HCPCS: 94618

== ENCOUNTER → 2022-03-01 | Outpatient (CLI) | payer MEDICARE, BC, SELFPAY | END | disposition home or self-care (01) | LOC: SL 13:54 | PROVIDERS: PCP Internal Medicine; Referring Provider Internal Medicine Critical Care Medicine; Visit Provider Internal Medicine Critical Care Medicine | DX: G47.33 Obstructive sleep apnea (adult) (pediatric) (principal) | CPT/HCPCS: 98960; G0463 ==

== ENCOUNTER → 2022-03-08 | Outpatient (CLI) | payer MEDICARE, BC, SELFPAY ==
[2022-03-08 16:53] LABS: Basophil# 0.03 X10^3/uL; Basophil% 0.7 % (0-1); Eosinophil# 0.28 X10^3/uL; Eosinophils% 6.2 % (0-5); Hematocrit 36.8 % (40-54); Hemoglobin 11.8 g/dL (13.0-16.5); Lymphocyte % 37.9 % (19-41); Mean Corp Hgb Conc 32.1 g/dL (32-36); Mean Corpuscular Hgb 30.2 pg (27.0-32.0); Mean Corpuscular Volume 94.1 fL (80-94); Mean Platelet Vol. 9.6 fl (6.2-12.0); Monocyte# 0.42 X10^3/uL; Monocyte% 9.4 % (0-10); NRBC Flagged by Analyzer 0 % (0-5); Neutrophil # 2.03 X10^3/uL (2.7-7.7); Neutrophil % 45.1 % (47-70); Platelet Count 113 K/mm3 (150-450); RBC Distribution Width CV 14.2 % (11.6-14.6); RBC Distribution Width SD 48.6 fl (35.1-43.9); Red Blood Count 3.91 M/mm3 (4.6-6.2); White Blood Count 4.5 K/mm3 (4.4-11.0)
[2022-03-08 20:31] LABS: ALB/GLOB Ratio 0.8 RATIO (0.9-2.4); AST(SGOT) 17 U/L (15-37); Alanine Aminotransfer ALT/SGPT 16 U/L (16-61); Albumin, Serum 3.2 g/dL (3.2-5.0); Alkaline Phosphatase 109 U/L (45-117); Anion Gap 5 (5-15); BUN 21 mg/dL (7-18); BUN/Creat Ratio 16.9 RATIO (10-20); Calcium,Total 8.9 mg/dL (8.5-10.1); Chloride 106 mmol/L (98-107); Creatinine, Serum 1.24 mg/dL (0.70-1.30); EST Glomerular Filtration Rate 61 mL/min (>60); Est Glom Filt Rate - Afr Amer 74 mL/min (>60); Globulin 3.9 g/dL (2.2-4.2); Glucose 104 mg/dL (74-106); Magnesium 1.8 mg/dL (1.6-2.6); Potassium 4.8 mmol/L (3.5-5.1); Protein, Total 7.1 g/dL (6.4-8.2); Sodium Level 139 mmol/L (136-145)
== END | disposition home or self-care (01) ==
LOC: BIMLAB 16:26
PROVIDERS: PCP Internal Medicine; Visit Provider Physician Assistant
DX: F10.10 Alcohol abuse, uncomplicated (principal); E87.6 Hypokalemia; E83.42 Hypomagnesemia; R55 Syncope and collapse
CPT/HCPCS: 36415; 80053; 83735; 85025

== ENCOUNTER 2022-03-31 20:25 | Inpatient (IN) | payer MEDICARE, BC, SELFPAY ==
--- NOTE | 2022-03-31 20:25 | NURSING ---
Pt arrives via ambulance, daughter and son inn law present. Alert and oriented x3, skin warm and dry. Assisted to bed with 3 assists. Report obtained from squad crew.
[2022-03-31 20:54] VITALS: BP 167/87; PULSE 88; RESP 18; TEMP 37.4; O2SAT 88; BMI 25.1
[2022-03-31 22:00] VITALS: O2SAT 98
[2022-03-31 22:49] VITALS: BP 132/79; BP 140/76; PULSE 112; PULSE 99
--- NOTE | 2022-03-31 22:52 | NURSING ---
Order to have back brace when out of bed, pt states they used it once at [facility], [place]. Is not in his things from [employer]. Will have therapy assess in am.
[2022-03-31 22:53] VITALS: BP 140/76; PULSE 99; RESP 18
[2022-03-31] MEDS: oxyCODONE Soln 5 MG/0.25 ML PO.SYRINGE PO (23:27)
[2022-04-01] MEDS: oxyCODONE Soln 5 MG/0.25 ML PO.SYRINGE PO ×2 (06:11→12:18)
[2022-04-01 06:33] LABS: Hematocrit 22.1 % (40-54); Hemoglobin 7.2 g/dL (13.0-16.5); Mean Corp Hgb Conc 32.6 g/dL (32-36); Mean Corpuscular Hgb 30.5 pg (27.0-32.0); Mean Corpuscular Volume 93.6 fL (80-94); Mean Platelet Vol. 8.6 fl (6.2-12.0); Platelet Count 166 K/mm3 (150-450); RBC Distribution Width CV 15.7 % (11.6-14.6); RBC Distribution Width SD 53.4 fl (35.1-43.9); Red Blood Count 2.36 M/mm3 (4.6-6.2); White Blood Count 3.7 K/mm3 (4.4-11.0)
[2022-04-01 06:53] LABS: Anion Gap 6 (5-15); BUN 16 mg/dL (7-18); BUN/Creat Ratio 20.6 RATIO (10-20); Calcium,Total 8.2 mg/dL (8.5-10.1); Chloride 109 mmol/L (98-107); Creatinine, Serum 0.78 mg/dL (0.70-1.30); EST Glomerular Filtration Rate 106 mL/min (>60); Est Glom Filt Rate - Afr Amer 128 mL/min (>60); Estimated Creatinine Clearance 76.52 ml/min; Glucose 100 mg/dL (74-106); Phosphorus 3.1 mg/dL (2.5-4.9); Potassium 3.8 mmol/L (3.5-5.1); Sodium Level 141 mmol/L (136-145)
[2022-04-01 07:46] VITALS: BP 135/79; PULSE 96; RESP 16; TEMP 37; O2SAT 97
[2022-04-01] MEDS: Calcium Carb/Vitamin D 1 TABLET Tablet PO (07:57)
[2022-04-01] MEDS: Aspirin E.C. 81 MG Tablet PO (07:58)
[2022-04-01] MEDS: Carvedilol 12.5 MG Tablet PO (07:58)
[2022-04-01] MEDS: Sertraline 100 MG Tablet PO (07:58)
[2022-04-01] MEDS: Lisinopril 5 MG Tablet PO (07:58)
[2022-04-01] MEDS: Cyanocobalamin 500 MCG Tablet 1000 MCG PO (07:58)
[2022-04-01] MEDS: Magnesium Chloride 64 MG Delay Rel.Tablet 128 MG PO ×2 (07:58→17:40)
[2022-04-01] MEDS: Allopurinol 100 MG Tablet PO (07:58)
[2022-04-01] MEDS: Thiamine Hydrochloride 100 MG Tablet PO (07:58)
[2022-04-01] MEDS: Potassium Chloride Oral Tablet 20 MEQ PO (07:58)
[2022-04-01] MEDS: Ferrous Sulfate 325 MG Tablet PO (07:58)
[2022-04-01] MEDS: Pantoprazole Sodium 40 MG Tablet PO (07:58)
[2022-04-01] MEDS: Folic Acid 1 MG Tablet PO (07:59)
[2022-04-01] MEDS: Chlorhexidine 480 ML 15 ML PO ×2 (08:05→23:04)
[2022-04-01] MEDS: Gabapentin 300 MG Capsule PO ×2 (08:10→12:18)
[2022-04-01 09:54] VITALS: BP 106/68; BP 117/66; BP 124/65; PULSE 107; PULSE 108; PULSE 96
--- NOTE | 2022-04-01 10:44 | HP.PCM_ITS ---
HPI - General General Date of Admission: 03/31/22 Date of Service: 04/01/22 Chief Complaint: Debility due to multitrauma with spinal fractures requiring fusion. HPI Narrative NIDIA HICKMAN, is a 71 YO M well known to me from 2 past admissions to the rehab unit at [facility]. PMH is extensive and can be reviewed below. Nidia has a long hx of falls and he fell down some stairs at home and and sustained a C1 Nathaniel fracture, C5 vertebral body fracture, C6 superior endplate fracture, C7 TP fracture, left vertebral artery dissection, L6 through 9 rib fractures and a right mandible fracture. He was admitted to [facility]. He was taken to the OR on 03/26/2022 for decompression and internal fixation of C4-C6, C3-T1 and T10?T 13. He had been scheduled for an extensive procedure to repair the osteonecrosis of the mandible and he was seen by was seen by ENT while at [place]. They recommended no surgery on the mandible until cleared by Neurosurgery which would not be for another 4-6 weeks. He was seen by PT/OT yanira maurice at [place] and acute rehab was recommended at [facility]. He was transferred to the acute rehab unit at [facility] on 03/31/22. Nursing report was not called to the rehab unit prior to his transfer to the rehab unit. the printed [facility] orders stated he was to wear a TLSO brace anytime he was out of bed. His told the charge nurse that he had not been wearing the brace during therapy sessions for the past week while at . she was told that following the fusion he would not need to wear the brace. This was verified with by the recruitment coordinator. He will have 3 hours of therapy daily to restore function at or near his level prior the the most recent fall/surgeries. The chart from was reviewed and also all the recent testing done at [facility] since he was discharged from rehab on 10/25/21 from Rehab to TCU. Since that time he had a dental abscess that was treated however he developed osteonecrosis from [place]ometa for MM and he is to have mandible reconstruction when neurosurgery releases him in the future. He had a stress test that was negative for ischemia. He had PFT's that were significant for mild restrictive ventilatory impairment with symmetric reduction in diffusing capacity. The last note from Dr. Mendes stated he had been compliant with BIPAP. He has been seeing Dr. Leach and has been diagnosed with B12 deficiency and he is now on oral B12 supplementation. He had an echocardiogram at [facility] in February that showed a 55 to 60% ejection fraction with normal wall motion. The right ventricular systolic pressure was estimated at 37 which is mildly increased. There was no significant valvular heart disease. He had a 72-hour Holter monitor done at [facility] that showed the predominant rhythm to be normal sinus rhythm with an average heart rate of 72. He had occasional supraventricular ectopy with predominantly isolated PVCs with 29 supraventricular couplets. He had 15 short runs of atrial tachycardia with the longest being 12 beats at 110 bpm. There was rare ventricular ectopy consisting of all isolated PVCs. There was no atrial fibrillation. Chun tells me that for the past several weeks he has not had anything to drink and has been sober. He is attending [employer] and has been reading the bible. He is in a much better place mentally than he has been in the past when admitted to rehab. All lab from today was personally reviewed. The white blood cell count is low at 3.7 and the hemoglobin is low at 7.6. Platelets are normal at 166,000. Potassium, sodium, serum bicarb are all normal. The BUN is 16 and the creatinine is 0.78. Calcium is low at 8.2. Albumin is pending. [facility] Medical History (Updated 04/04/22 @ 09:[address] Mary Ann Truong, DO) Acute deep vein thrombosis (DVT) of left lower extremity Anemia Angiodysplasia of colon Angiodysplasia of stomach Aseptic necrosis of jaw Asthma Atrial fibrillation with RVR Autonomic neuropathy B12 deficiency Back pain BiPAP (biphasic positive airway pressure) dependence Bladder disease BPH with obstruction/lower urinary tract symptoms Cardiology follow-up encounter Chest pain, unspecified Chronic deep vein thrombosis (DVT) Chronic diarrhea Closed L1 vertebral fracture Closed L2 vertebral fracture Closed T11 fracture Cognitive dysfunction Colon polyps Debility DVT (deep venous thrombosis) Dysphagia Easy bruising Essential (primary) hypertension ETOH abuse Fatty liver Gastric reflux GI bleed History of CHF (congestive heart failure) History of COVID-19 History of edema History of hepatitis C History of stress test Hypomagnesemia Idiopathic gout Injury of head and neck Iron deficiency Lumbar spinal stenosis Lytic lesion of bone on x-ray Multiple myeloma not having achieved remission Neuropathy Orthostatic hypotension Osteopenia determined by x-ray Pancytopenia Prostatic enlargement Scratched by cat Shortness of breath on exertion Submandibular abscess SVT (supraventricular tachycardia) Syncope Thrombocytopenia Thyroid nodule incidentally noted on imaging study Torn ligament Urinary (tract) obstruction Wears glasses Wears hearing aid in both ears Home Medications ferrous sulfate 325 mg (65 mg iron) tablet 325 mg PO BIDCM supplement 06/18/20 [History Last Taken 11/15/21] folic acid 1 mg tablet 1 mg PO DAILY supplement 10/09/21 [History Last Taken 11/15/21] sertraline 100 mg tablet 100 mg PO DAILY depression/anxiety 10/09/21 [History Last Taken 11/15/21] calcium carbonate 500 mg-vitamin D3 5 mcg (200 unit) tablet (Oyster Shell Calcium-Vitamin D3) 1 tab PO BIDCM Supplement 10/25/21 [History Last Taken 11/15/21] acetaminophen 325 mg tablet (Tylenol) 650 mg PO Q6H PRN PRN PAIN 1-10 #0 tabs 11/03/21 [Rx Last Taken Unknown] mirtazapine 15 mg tablet 15 mg PO QHS appetitie 11/16/21 [History Last Taken 11/15/21] pantoprazole 40 mg tablet,delayed release 40 mg PO DAILY gerd 11/16/21 [History Last Taken 12/29/21] tamsulosin 0.4 mg capsule 0.4 mg PO QHS bladder 11/16/21 [History Last Taken 11/15/21] albuterol sulfate 90 mcg/actuation aerosol inhaler (Ventolin HFA) 2 puff inhalation Q4H PRN shortness of breath or wheezing #18 grams 11/19/21 [Rx Last Taken Unknown] allopurinol 100 mg tablet 100 mg PO DAILY gout 12/16/21 [History Last Taken Unknown] chlorhexidine gluconate 0.12 % mouthwash 15 ml PO BID mouthwash 01/12/22 [History Last Taken Unknown] lisinopril 5 mg tablet 5 mg PO DAILY blood pressure 01/12/22 [History Last Taken Unknown] lenalidomide 10 mg capsule (Revlimid) 1 cap PO DAILY multiple myeloma 02/23/22 [History Last Taken Unknown] aspirin 81 mg tablet,delayed release 81 mg PO DAILY asa 03/08/22 [History Last Taken Unknown] carvedilol 12.5 mg tablet 12.5 mg PO BIDCM heart 03/31/22 [History Last Taken Unknown] cyanocobalamin (vitamin B-12) 1,000 mcg tablet (Vitamin B-12) 1,000 mcg PO BID supplement 03/31/22 [History Last Taken Unknown] gabapentin 300 mg capsule 300 mg PO TIDCM neuropathy 03/31/22 [History Last Taken Unknown] lactase 3,000 unit tablet 3,000 unit PO TIDCM lactose intolerance 03/31/22 [History Last Taken Unknown] magnesium oxide 400 mg (241.3 mg magnesium) tablet 400 mg PO BIDCM supplement 03/31/22 [History Last Taken Unknown] potassium chloride 20 mEq tablet,extended release(part/cryst) (Klor-Con M) 20 meq PO BREAKFAST Supplement 03/31/22 [History Last Taken Unknown] thiamine HCl (vitamin B1) 100 mg tablet 100 mg PO DAILY supplement 03/31/22 [History Last Taken Unknown] Allergy/AdvReac Type Severity Reaction Status Date / Time No Known Allergies Allergy Verified 03/08/22 16:32 Family History Mother Heart disease Hypertension Father Hypertension Surgical History (Updated 04/01/22 @ 11:[address] Mary Ann Truong DO) History of bone marrow biopsy History of bunionectomy History of spinal fusion History of transurethral resection of prostate Hx of colonoscopy Social History household members: spouse Smoking Status: Never smoker alcohol intake: current alcohol intake frequency: 3 or more drinks per day substance use type: does not use ROS Constitutional Constitutional: Reports frequent falls; Denies anorexia, chills, fever(s) or night sweats Eyes Eyes: Reports numbness and other Details: Jaw pain on the left due to osteonecrosis ; Denies blurry vision, change in vision, eye pain or loss of vision ENT HEENT: Reports other Details: He denies dysphagia but, he failed his bedside swallowing eval with ST and he also failed MBS and has been NPO....takes meds crushed in apple sauce. ; Denies abnormal hearing, dysphagia, headache(s), hearing loss, nasal congestion or sore throat Cardiovascular Cardiovascular: Reports lightheadedness and numbness in extremities; Denies chest pain, dyspnea on exertion, edema, orthopnea, palpitations or paroxysmal n octurnal dyspnea Respiratory/Chest Respiratory/Chest: Denies cough, dyspnea, shortness of breath at rest, shortness of breath with exertion or wheezing Gastrointestinal Gastrointestinal: Denies abdominal pain, constipation, diarrhea, dyspepsia, hematemesis, hematochezia, nausea or vomiting Genitourinary Genitourinary: Denies dysuria, hematuria, nocturia, urinary frequency, urinary hesitancy, urinary incontinence or urinary urgency Musculoskeletal Musculoskeletal: Reports neck pain and stiffness; Denies back pain, joint pain, joint swelling or muscle cramps Integumentary Integumentary: Reports wounds; Denies jaundice or rash Neurologic Neurologic: Reports dizziness; Denies confusion, disequilibrium, focal weakness, headache(s), seizures or tremor(s) Psychiatric Psychiatric: Denies homicidal ideation or suicidal ideation Endocrine Endocrinology: Denies change in body appearance, polydipsia or polyuria Hematologic/Lymphatic Hematologic/Lymphatic: Denies lymphadenopathy Allergic/Immunologic Allergic/Immunologic: Denies rhinitis, eczemia or asthma Vital Signs Vital Signs Vital Signs: 03/31/22 20:54 03/31/22 22:49 03/31/22 22:53 Temperature 99.3 F H Temperature Source Temporal Pulse Rate 88 99 Pulse Rate [Lying] 99 Pulse Rate [Sitting (for 1 minute prior to obtaining)] 112 H Pulse Rate [Standing (for 1 minute prior to obtaining)] Respiratory Rate 18 18 Respiratory Effort Respiratory Depth Respiratory Pattern Blood Pressure 167/87 H 140/76 H Blood Pressure [Lying] 140/76 H Blood Pressure [Sitting (for 1 minute prior to obtaining)] 132/79 H Blood Pressure [Standing (for 1 minute prior to obtaining)] Blood Pressure Mean 113 97 Blood Pressure Mean [Lying] 97 Blood Pressure Mean [Sitting (for 1 minute prior to obtaining)] 96 Blood Pressure Mean [Standing (for 1 minute prior to obtaining)] Blood Pressure Source Monitor Monitor Blood Pressure Position Semi-Fowlers Supine Blood Pressure Location Right Arm Left Arm Pulse Ox 88 Oxygen Delivery Method Room Air 03/31/22 22:00 04/01/22 07:46 04/01/22 09:54 Temperature 98.6 F Temperature Source Temporal Pulse Rate 96 Pulse Rate [Lying] 96 Pulse Rate [Sitting (for 1 minute prior to obtaining)] 108 H Pulse Rate [Standing (for 1 minute prior to obtaining)] 107 H Respiratory Rate 16 Respiratory Effort Normal Non-Labored Respiratory Depth Normal Respiratory Pattern Normal Blood Pressure 135/79 H Blood Pressure [Lying] 124/65 H Blood Pressure [Sitting (for 1 minute prior to obtaining)] 106/68 Blood Pressure [Standing (for 1 minute prior to obtaining)] 117/66 Blood Pressure Mean 97 Blood Pressure Mean [Lying] 84 Blood Pressure Mean [Sitting (for 1 minute prior to obtaining)] 80 Blood Pressure Mean [Standing (for 1 minute prior to obtaining)] 83 Blood Pressure Source Monitor Blood Pressure Position Semi-Fowlers Blood Pressure Location Right Forearm Pulse Ox 98 97 Oxygen Delivery Method Room Air Room Air Weight Weight: 180 lb 15.992 oz Body Mass Index (BMI) 25.1 Physical Exam Const alert and oriented x3 Constitutional Narrative: Lying in bed c/o being very hungry. General Appearance: cooperative and well developed HEENT normocephalic HEENT Narrative: Has several areas on the scalp that are sutured from lacerations sustained in the recent fall down the steps. The lacerations are healing with no erythema, discharge or swelling around the incision. Head and Scalp: other Other Details: Has lacerations that have been sutured on the R cheek. No erythema, no discharge, no swelling. Mouth: dry mucous membranes, malodorous breath and other Other Details: Many missing teeth and many caries in other teeth. No buccal lesions Teeth and Gingiva: abnormal tooth and associated gingiva, caries, poor dentition and teeth discoloration Eyes PERRL, EOMs intact bilaterally, conjunctivae normal and no scleral icterus Neck Neck Narrative: Has had recent cervical fusion. The area was is bandaged and I will examine the next time the bandage is removed. General: trachea midline; Negative for lymphadenopathy Chest Chest: symmetrical chest wall rise Resp normal respiratory effort, normal air movement, no use of accessory muscles and clear to auscultation bilaterally Resp Narrative: CTA anterior and lateral. Few crackles in the bases initially that resolved after a few deep breaths. Able to take a deep breath and has no conversational dyspnea. Cardio regular rate, regular rhythm, S1 normal heart sound, S2 normal heart sound, no murmurs, no rub and no gallops Cardio Narrative: No ectopy GI normal to inspection, nondistended, normoactive bowel sounds, soft to palpation, non-tender and no masses Inspection: Negative for abdominal aortic bruit Extremity no clubbing, cyanosis or edema and no calf tenderness Skin Skin Narrative: Multiple trauma with lacerations and incisions. All appear to be healing with no DC, erythema or abnormal swelling. He has resolving areas of ecchymosis. Hair: male pattern alopecia Neuro oriented x3, CN's II-XII intact bilaterally and moves all extremities Neuro Narrative: He has sensory loss in the feet L>R. The R hand is a little weak and occasionally has some numbness Psych cooperative, affect normal, activity/motor behavior normal, denies hallucinations, denies homicidal ideation and denies suicidal ideation Psych Narrative: Less confused than he has been on his 2 previous admissions to rehab. Appearance: grossly normal and appropriate Attitude: calm Activity / Motor Behavior: appropriate eye contact Results Lab / Micro Data Result Diagrams: 04/02/22 06:24 04/01/22 06:20 Labs: Laboratory Results - last 24 hr 04/01/22 06:20: WBC 3.7 L, RBC 2.36 L, Hgb 7.2 L, Hct 22.1 L, MCV 93.6, MCH 30.5, MCHC 32.6, RDW Std Deviation 53.4 H, RDW Coeff of [place] 15.7 H, Plt Count 166, MPV 8.6 04/01/22 06:20: Sodium 141, Potassium 3.8, Chloride 109 H, Carbon Dioxide 26.0, Anion Gap 6, BUN 16, Creatinine 0.78, Estim Creat Clear Calc 76.52, Est GFR (MDRD) Af Amer 128, Est GFR (MDRD) Non-Af 106, BUN/Creatinine Ratio 20.6 H, Glucose 100, Calcium 8.2 L, Phosphorus 3.1, Magnesium 2.0 Assessment & Plan Assessment/Plan (1) Debility: (2) Syncope and collapse: (3) Multiple trauma: (4) Nathaniel fracture: PLAN: C1 (5) C5 vertebral fracture: (6) C7 cervical fracture: PLAN: transverse process (7) C6 cervical fracture: PLAN: superior end plate (8) Left rib fracture: PLAN: Ribs 6-9 (9) Fracture of ramus of mandible: PLAN: Right side. (10) Multiple lacerations: (11) History of spinal fusion: (12) Acute on chronic anemia: (13) Aseptic necrosis of jaw: (14) Chronic diarrhea: (15) B12 deficiency: (16) Obstructive sleep apnea: (17) Peripheral neuropathy: (18) Multiple myeloma: QUALIFIERS: Multiple myeloma remission status: unspecified Qualified Code(s): C90.00 - Multiple myeloma not having achieved remission (19) Alcoholism: (20) Depression: QUALIFIERS: Depression Type: unspecified Qualified Code(s): F32.9 - Major depressive disorder, single episode, unspecified (21) PTSD (post-traumatic stress disorder): (22) Hypomagnesemia: (23) Pulmonary hypertension: (24) Hypoalbuminemia: (25) Gout: (26) Neuropathy: (27) Hypertension: (28) Gastroesophageal reflux disease: (29) Orthostatic hypotension: (30) Cognitive dysfunction: (31) Urinary incontinence: (32) SVT (supraventricular tachycardia): PLAN: Recent Holtor with no AF but, he has had AF in the past. Rare PVC's on the recent Holtor monitor. (33) Dysphagia: PLAN: Failed MBS. NG attempted and failed, due to hx of broken nose in the past. Will need a PEG tube. (34) Chronic deep vein thrombosis (DVT): PLAN: Not on anticoagulation for the past few months. PLAN: Plan PLAN PT for gait stability OT for ADL's ST for evaluation Analgesics as needed Bowel protocol Fall precautions Assess for Anxiety/Depression GI prophylaxis with lansoprazole DVT prophylaxis with SCD's and TANYA mcmullen. Will need to D/W neurosurgery when he can start on pharmacologic prophylaxis for DVT. He has had DVTs in the past and he has a history of multiple myeloma which is currently in remission. AM lab was reviewed. Dental surgery for the osteonecrosis and fracture of the R mandible is on hold for at least 6 weeks due to the spinal surgery. Peridex BID Recheck a HH in the AM Unit Exclusion This patient is an acute care inpatient being housed in the excluded unit because of capacity issues related to the disaster or emergency.: Yes Charges/Coding Visit Charges Inpatient E&M: 69498 Init Hosp L3
[2022-04-01] MEDS: CLARIFY ORDER NOTE (12:24)
[2022-04-01 12:29] LABS: AST(SGOT) 14 U/L (15-37); Alanine Aminotransfer ALT/SGPT 16 U/L (16-61); Albumin, Serum 2.1 g/dL (3.2-5.0); Alkaline Phosphatase 303 U/L (45-117); Bilirubin, Direct 0.21 mg/dL (0.00-0.30); Globulin 3.7 g/dL (2.2-4.2); Protein, Total 5.8 g/dL (6.4-8.2)
--- NOTE | 2022-04-01 16:20 | NURSING ---
Paged Dr Cali, waiting for return call.
--- NOTE | 2022-04-01 16:26 | SP.MBSS_ITS ---
Modified Barium Swallow - Patient Information Study Date: 04/01/22 Study Time: 14:00 Direct Billable Minutes: 120 Total Minutes procedure & reportin Diagnosis: Oropharyngeal dysphagia (13.12) Referring Physician: Mary Ann Truong Reason for Referral: To objectively analyze and assess patients oral and phayngeal swallow and to determine the least restrictive diet to meet safe nutritional needs. Pt. was evaluated by FROG CATCHER earlier this date and suspected aspiration with PO intake. Medical History: NIDIA HICKMAN, is a 71 YO M; Pt. has a long hx of falls and he fell down some stairs at home and and sustained a C1 Nathaniel fracture, C5 vertebral body fracture, C6 superior endplate fracture, C7 TP fracture, left vertebral artery dissection, L6 through 9 rib fractures and a right mandible fracture. On 03/26/2022 for decompression and internal fixation of C4-C6, C3-T1 and T10?T 13. He was transferred to the acute rehab unit at [facility] on 03/31/22. He wears a TLSO brace anytime he was out of bed. Medical History (Updated 04/01/22 @ 11:[address] Mary Ann Truong, DO) Acute deep vein thrombosis (DVT) of left lower extremity Anemia Angiodysplasia of colon Angiodysplasia of stomach Aseptic necrosis of jaw Asthma Atrial fibrillation with RVR Autonomic neuropathy B12 deficiency Back pain BiPAP (biphasic positive airway pressure) dependence Bladder disease BPH with obstruction/lower urinary tract symptoms Cardiology follow-up encounter Chest pain, unspecified Chronic deep vein thrombosis (DVT) Chronic diarrhea Closed L1 vertebral fracture Closed L2 vertebral fracture Closed T11 fracture Cognitive dysfunction Colon polyps Debility DVT (deep venous thrombosis) Dysphagia Easy bruising Essential (primary) hypertension ETOH abuse Fatty liver Gastric reflux GI bleed History of CHF (congestive heart failure) History of COVID-19 History of edema History of hepatitis C History of stress test Hypomagnesemia Idiopathic gout Injury of head and neck Iron deficiency Lumbar spinal stenosis Lytic lesion of bone on x-ray Multiple myeloma not having achieved remission Neuropathy Orthostatic hypotension Osteopenia determined by x-ray Pancytopenia Prostatic enlargement Scratched by cat Shortness of breath on exertion Submandibular abscess SVT (supraventricular tachycardia) Syncope Thrombocytopenia Thyroid nodule incidentally noted on imaging study Torn ligament Urinary (tract) obstruction Wears glasses Wears hearing aid in both ears Current Diet Ordered: Regular with Thin Dentition: Missing Teeth Mental Status: WNL Respiratory Status: Oxygenating on Room Air - Penetration-Aspiration Scale Penetration-Aspiration Scale: OBJECTIVE ASSESSMENT OF SWALLOW FUNCTION (QUANTITATIVE ? PER TRIAL): PENETRATION / ASPIRATION SCALE ([place]): 1 = does not enter airway 2 = enters airway/above vocal folds/ejected 3 = enters airway/above vocal folds/not ejected 4 = enters airway/contacts vocal folds/ejected 5 = enters airway/contacts vocal folds/not ejected 6 = enters airway/below vocal folds/ejected 7 = enters airway/below vocal folds/not ejected despite effort 8 = enters airway/below vocal folds/no effort - Penetration-Aspiration Scale Score Thin Liquid via teaspoon Result: 8= enters airway/below vocal folds/no effort Thin Liquid via teaspoon Trial 2 Result: 8= enters airway/below vocal folds/no effort Thin Liquid via small single sip from cup Result: 8= enters airway/below vocal folds/no effort - Pt. took 3 sips from cup after being prompted to take a single sip [place] Thick Liquid via teaspoon Result: 8= enters airway/below vocal folds/no effort [place] Thick Liquid via small single sip from cup Result: 8= enters airway/below vocal folds/no effort Honey Thick Liquid via teaspoon Result: 3= enters airways/above vocal folds/not ejected Honey Thick Liquid via small single sip from cup Result: 5= enters airways/contacts vocal folds/not ejected Pudding via teaspoon Result: 5= enters airways/contacts vocal folds/not ejected Cookie via teaspoon Result: 1= does not enter airway Honey Thick Liquid via teaspoon Trial 2 Result: 1= does not enter airway Thin Liquid via teaspoon Trial 3 Result: 8= enters airway/below vocal folds/no effort - Oral Phase Labial Seal: No Labial Escape Tongue Control During Bolus Hold: Cohesive bolus between tongue to palatal seal Bolus Preparation/Mastication: Disorganized chewing/mashing with solid pieces of bolus unchewed Bolus Transport/Lingual Motion: Slowed tongue motion Oral Residue: Majority of bolus remaining - Pharyngeal Phase Initiation of Pharyngeal Swallow: Bolus head in pyriforms - bolus prespilled into airway prior to swallow Soft Palate Elevation: Escape to nasopharynx Laryngeal Elevation: Min superior movement thyroid cart/min apprx aryte cart- epig petiole Anterior Hyoid Excursion: Partial anterior movement Epiglottic Movement: No inversion Laryngeal Vestibule Closure at Height of Swallow: Incomplete; narrow column of air/contrast in laryngeal vestibule Pharyngeal Stripping Wave: Absent Pharyngoesophageal Segment Opening: Complete distension and complete duration; no obstruction of flow Tongue Base Retraction: Wide column of contrast between tongue base & post. pharyngeal wall Pharyngeal Residue: Majority of contrast within or on pharyngeal structures - Esophageal Phase Esophageal Clearance: Complete clearance - Treatment Strategies Effects of treatment strategies attemped:: Pt. trialed 2nd swallow and hard swallow to help clear pharyngeal residual with no effect - Diagnosis/Impression Diagnosis: severe to profound oropharyngeal dysphagia (R13.12) Impression: Pt. presents with oral phase dysphagia characterized by decreased mastication and anterior-posterior transfer resulting in oral residues and whole pieces of bolus. Pt. presents with pharyngeal phase dysphagia characterized by decreased tongue base retraction, decreased laryngeal elevation and anterior hyoid excursion, delayed swallow onset, decreased pharyngeal constriction resulting in pre-spill of the bolus into the valleculae, laryngeal vestibule and pyriform sinuses prior to the swallow, pharyngeal residuals and absent epiglottic deflection. Aspiration during the swallow was observed with thin and nectar consistencies and penetration (which was not ejected) was observed with honey and puree textures. Aspiration and penetration is highly suspected between swallows with the pharyngeal residuals of all consistencies. Pt. presented with throat clearing with all trials, complaint of tickle in his throat and an increase in wet/gurgly vocal quality as the study progressed. During the trial with the cookie, pt. was unable to fully masticate the cookie and an un- masticated piece of the cookie became stuck in the vallecule. Pt. was prompted to swallow hard and re-swallow. Due to decreased pharyngeal constriction, re- swallow and hard swallow was unable to remove un-masticated cookie. Pt. eventually dislodged cookie piece with honey thick trial. However, pharyngeal residue was not cleared resulting in increased risk of aspiration between swa llows. Pt. also showed signs of impulsivity during the transfer from the wheelchair into the [facility] chair by not waiting for assistance even when prompted and by taking 3 sips of a drink when prompted to take 1 sip. Pt. was educated on the results of the study and verbalized understanding. - Recommendations Diet: NPO - recommend trials of honey(IDDSI level 3) and puree (IDDSI level 4) with FROG CATCHER only Recommend Repeat Modified Barium Swallow: TBD - repeat MBSS recommended with increased tolerance of po textures as determined by FROG CATCHER Need for Skilled Speech Therapy Services: Yes Education Completed: 1. Described result of evaluation., 2. Pt understands evaluation & agrees with goals and treatment plan., 7. Pt requires further education on strategies & risks. - Status Active ST Patient: Active - Contact Information [facility]:: [facility] [address] [place] [address] Rosetta Muse M.A., CCC-FROG CATCHER 04/01/22
[2022-04-01] MEDS: 0.9% Normal Saline 1,000 ML 75 ML IV (16:58)
[2022-04-01] MEDS: 0.9% Saline Lock 10 ML Syringe IV (16:58)
[2022-04-01] MEDS: Ferrous Sulfate 300 MG/5 ML UDC NG (17:40)
[2022-04-01] MEDS: Gabapentin 300 MG Capsule NG (17:40)
[2022-04-01] MEDS: Carvedilol 12.5 MG Tablet NG (17:40)
[2022-04-01] MEDS: Calcium Carb/Vitamin D 1 TABLET Tablet NG (17:41)
[2022-04-01 19:32] VITALS: BP 123/69; PULSE 88; RESP 15; TEMP 36.7; O2SAT 98
[2022-04-01] MEDS: Mirtazapine 15 MG Tablet NG (23:04)
[2022-04-01] MEDS: Cyanocobalamin 500 MCG Tablet 1000 MCG NG (23:05)
[2022-04-02] MEDS: oxyCODONE Soln 5 MG/0.25 ML PO.SYRINGE NG ×2 (01:14→13:12)
[2022-04-02] MEDS: 0.9% Normal Saline 1,000 ML 75 ML IV ×2 (06:26→18:13)
[2022-04-02 06:30] LABS: Absolute Lymphocyte Count 0.94 X10^3/uL (0.83-4.51); Absolute Neutrophil Count 1.8 X10^3/uL (2.0-7.7); Basophil# 0.03 X10^3/uL; Basophil% 0.9 % (0-1); Eosinophil# 0.05 X10^3/uL; Eosinophils% 1.6 % (0-5); Hematocrit 25.1 % (40-54); Hemoglobin 7.7 g/dL (13.0-16.5); Lymphocyte # 0.94 X10^3/ul (0.83-4.51); Lymphocyte % 29.5 % (19-41); Mean Corp Hgb Conc 30.7 g/dL (32-36); Mean Corpuscular Hgb 29.4 pg (27.0-32.0); Mean Corpuscular Volume 95.8 fL (80-94); Mean Platelet Vol. 8.6 fl (6.2-12.0); Monocyte# 0.32 X10^3/uL; NRBC Flagged by Analyzer 0 % (0-5); Neutrophil # 1.82 X10^3/uL (2.7-7.7); Neutrophil % 57.1 % (47-70); Platelet Count 152 K/mm3 (150-450); RBC Distribution Width CV 15.4 % (11.6-14.6); RBC Distribution Width SD 53.5 fl (35.1-43.9); Red Blood Count 2.62 M/mm3 (4.6-6.2); White Blood Count 3.2 K/mm3 (4.4-11.0)
[2022-04-02 07:55] VITALS: BP 145/68; PULSE 76; RESP 18; TEMP 36.7; O2SAT 98
[2022-04-02] MEDS: Potassium Chloride Oral Soln 20 MEQ/15 ML UDC NG (08:50)
[2022-04-02] MEDS: Carvedilol 12.5 MG Tablet NG ×2 (08:50→16:49)
[2022-04-02] MEDS: Aspirin 81 MG TAB.CHEW NG (08:51)
[2022-04-02] MEDS: Ferrous Sulfate 300 MG/5 ML UDC NG ×2 (08:51→16:48)
[2022-04-02] MEDS: Magnesium Chloride 64 MG Delay Rel.Tablet 128 MG PO ×2 (08:53→16:48)
[2022-04-02] MEDS: Folic Acid 1 MG Tablet NG (08:54)
[2022-04-02] MEDS: Thiamine Hydrochloride 100 MG Tablet NG (08:55)
[2022-04-02] MEDS: Cyanocobalamin 500 MCG Tablet 1000 MCG NG ×2 (08:56→22:28)
[2022-04-02] MEDS: Lansoprazole 15 MG Capsule.DR 30 MG NG (08:57)
[2022-04-02] MEDS: Chlorhexidine 480 ML 15 ML PO ×2 (08:59→22:28)
[2022-04-02] MEDS: Sertraline 100 MG Tablet NG (09:01)
[2022-04-02] MEDS: Lisinopril 5 MG Tablet NG (09:01)
[2022-04-02] MEDS: Calcium Carb/Vitamin D 1 TABLET Tablet NG ×2 (09:02→18:00)
[2022-04-02] MEDS: Allopurinol 100 MG Tablet NG (09:03)
[2022-04-02] MEDS: Gabapentin 300 MG Capsule NG ×3 (09:05→16:50)
[2022-04-02 22:00] VITALS: BP 140/75; PULSE 78; RESP 18; TEMP 36.9; O2SAT 96
[2022-04-02] MEDS: Mirtazapine 15 MG Tablet NG (22:28)
[2022-04-03] MEDS: oxyCODONE Soln 5 MG/0.25 ML PO.SYRINGE NG ×2 (03:24→12:06)
[2022-04-03] MEDS: 0.9% Normal Saline 1,000 ML 75 ML IV ×2 (07:21→20:45)
[2022-04-03] MEDS: Chlorhexidine 480 ML 15 ML PO ×2 (09:10→20:52)
[2022-04-03] MEDS: Magnesium Chloride 64 MG Delay Rel.Tablet 128 MG PO ×2 (09:12→16:06)
[2022-04-03] MEDS: Cyanocobalamin 500 MCG Tablet 1000 MCG NG ×2 (09:12→20:55)
[2022-04-03] MEDS: Potassium Chloride Oral Soln 20 MEQ/15 ML UDC NG (09:13)
[2022-04-03] MEDS: Thiamine Hydrochloride 100 MG Tablet NG (09:13)
[2022-04-03] MEDS: Folic Acid 1 MG Tablet NG (09:14)
[2022-04-03] MEDS: Ferrous Sulfate 300 MG/5 ML UDC NG ×2 (09:14→16:05)
[2022-04-03] MEDS: Sertraline 100 MG Tablet NG (09:15)
[2022-04-03] MEDS: Lisinopril 5 MG Tablet NG (09:15)
[2022-04-03] MEDS: Aspirin 81 MG TAB.CHEW NG (09:15)
[2022-04-03] MEDS: Calcium Carb/Vitamin D 1 TABLET Tablet NG ×2 (09:16→16:07)
[2022-04-03] MEDS: Lansoprazole 15 MG Capsule.DR 30 MG NG (09:17)
[2022-04-03] MEDS: Allopurinol 100 MG Tablet NG (09:17)
[2022-04-03] MEDS: Carvedilol 12.5 MG Tablet NG ×2 (09:18→16:03)
[2022-04-03] MEDS: Gabapentin 300 MG Capsule NG ×3 (09:19→16:10)
[2022-04-03 10:00] VITALS: BP 145/67; PULSE 84; RESP 18; TEMP 36.8; O2SAT 100
[2022-04-03 20:32] VITALS: BP 147/72; PULSE 63; RESP 16; TEMP 36.4; O2SAT 97
[2022-04-03] MEDS: Mirtazapine 15 MG Tablet NG (20:55)
[2022-04-03 22:00] VITALS: PULSE 63; RESP 15
[2022-04-03] MEDS: Acetaminophen 650 MG/20 ML UDC 975 MG NG (22:33)
[2022-04-04] MEDS: oxyCODONE Soln 5 MG/0.25 ML PO.SYRINGE NG ×3 (05:12→17:55)
[2022-04-04] MEDS: Acetaminophen 650 MG/20 ML UDC 975 MG NG ×3 (05:13→17:57)
[2022-04-04 07:28] VITALS: BP 142/75; PULSE 80; RESP 16; TEMP 36.2; O2SAT 97
[2022-04-04 09:41] LABS: Absolute Lymphocyte Count 1.19 X10^3/uL (0.83-4.51); Absolute Neutrophil Count 3.4 X10^3/uL (2.0-7.7); Basophil# 0.04 X10^3/uL; Basophil% 0.8 % (0-1); Eosinophil# 0.08 X10^3/uL; Eosinophils% 1.6 % (0-5); Hematocrit 23.5 % (40-54); Hemoglobin 7.5 g/dL (13.0-16.5); Lymphocyte # 1.19 X10^3/ul (0.83-4.51); Lymphocyte % 23.7 % (19-41); Mean Corp Hgb Conc 31.9 g/dL (32-36); Mean Corpuscular Hgb 30.1 pg (27.0-32.0); Mean Corpuscular Volume 94.4 fL (80-94); Mean Platelet Vol. 8.9 fl (6.2-12.0); Monocyte# 0.28 X10^3/uL; Monocyte% 5.6 % (0-10); NRBC Flagged by Analyzer 0 % (0-5); Neutrophil # 3.41 X10^3/uL (2.7-7.7); Neutrophil % 67.7 % (47-70); Platelet Count 237 K/mm3 (150-450); RBC Distribution Width CV 14.9 % (11.6-14.6); RBC Distribution Width SD 51.3 fl (35.1-43.9); Red Blood Count 2.49 M/mm3 (4.6-6.2)
[2022-04-04 09:53] LABS: International Normalized Ratio 1.3; Prothrombin Time (Protime)PT. 15.6 SECONDS (11.7-14.9)
[2022-04-04 09:54] LABS: Partial Thromboplast Time 44.5 Seconds (24.1-36.2)
[2022-04-04] MEDS: 0.9% Normal Saline 1,000 ML 75 ML IV ×2 (09:57→23:19)
--- NOTE | 2022-04-04 10:00 | PCM.RU.PYE ---
Admission Information Primary Diagnosis:: Debility due to multiple trauma. Status Changes from Prescreening?: No changes Identified Actual Problem List:: Aspiration, Falls, Skin Intergrity, Pain, ALteration in Cmfrt, Cognitve Impr/Memory Loss, Depression, Bladder Incontinence, Mobility Impaired, Self Care Deficit and Alteration-Leisure Activ. Potential Problem List:: DVT, Bleeding, Infection, UTI, Aspiration, Falls, Skin Integrity and Depression Risk of Complications DVT: TANYA Hose and Sequential Compression Device Bleeding: Monitor Lab Values, Nursing to Teach Precautions for anti-coagulation therapy., Wound, if applicable, to be assessed every shift. and Stroke patients assessed for lethargy or change in status. Infection: Clinical Staff to Monitor for S/S of infection: and S/S of infection include fever, redness, warmth, etc. Urinary Tract Infection: Monitor for frequency, burning, discomfort, or incontinence. and Nursing will obtain urine sample for urinalysis and C&S when ordered. Aspiration: Clinical staff will monitor for coughing, drooling, congestion., Speech will evaluate swallowing and dsyphasia. and Nursing will monitor patient swallowing during meals. Falls: Patient will be evaluated for Fall Precautions and Patient will be placed on Fall Precautions as indicated per protocol. Skin Breakdown: Nursing will assess skin daily using assessment tool. and Nursing will place on Skin Breakdown Precautions as indicated. Pain: Clinical staff will assess patient's pain level per protocol., Medications will be given, if needed, and the pain level reassessed. and Other methods: Massage, distraction, decrease stimulus, etc. used PRN. Plan of Care Patient requires physician specializing in physical medicine and rehab oversight to provide close medical supervision of rehab issues including: Pain Management, Sleep Problems, Bowel and Bladder, Medical and co-morbidity Management, DVT prophylaxis, Rehabilitation Leadership and Coordination of treatment team Patient needs Physical Therapy: For a minimum of 1 hour and At least 5 out of 7 days Patient needs Physical Therapy to improve:: Mobility, Strengthening, Transfers, Stretching, ROM, Endurance, Stairs, Gait and Balance Patient needs Occupational Therapy: For a minimum of 1 hour and At least 5 out of 7 days Patient needs Occupational Therapy to improve ADL's incl.: Eating, Grooming, Bathing, Dressing, Toileting, Toilet transfers, Community Reintegration, Higher functioning activities, Household tasks, Adaptive Equipment, Splinting and Other activities as determined Patient requires speech therapy: For a minimum of 1 hour and At least 5 out of 7 days Patient requires speech therapy for: Swallowing, Cognition, Language Skills and Compensatory Strategies Patient requires 24/ Rehabilitation Nursing for: Pain Issues, Identifying and preventing risk factors, Monitoring and reporting current medical conditions, Assisting with ambulation, transfer, and all ADL's, Teaching patients about disease process and medications, Family teaching, Providing safe environment, Bowel and Bladder Issues, Skin integrity and Medication Management Patient needs Geotechnical Field Technician/ Case Management for: Discharge Planning, Arranging Home Equipment or Services and Family Interventions Patient needs Dietary and Nutrition Services for: Adequate Nutrition, Nutritional Supplements and Nutritional Education Goals Patient will remain: free from falls Patient will perform bed mobility at: MOD I level of assist. Patient will complete transfers from bed to chair at: MOD I level of assist. Patient will ambulate: - (300 feet with least restrictive device on various surfaces at standby assist) Patient will complete upper body dressing at: Standby Assist. Patient will complete lower body dressing at: - (Minimal assistance) Patient will complete toileting at: - (Contact-guard assist) Patient will perform bathing at: - (Minimal assistance) Patient will complete grooming at: MOD I level of assist. Patient will complete home management skills at: MOD I level of assist. Patient will achieve: 12 stairs (With 2 handrails at standby assist) Patient will have pain level of: of 3 or less Patient's skin will: remain intact Patient will receive: adequate nutrition. Discharge Planning Pt Prognosis for Sig. Practical Improv. w/in Reasonable Time: Good Estimated Length of stay (days): 28 Anticipated D/C Destination: Home with Home Health Was Preadmission Assessment Accurate?: Yes
[2022-04-04] MEDS: Potassium Chloride Oral Soln 20 MEQ/15 ML UDC NG (10:03)
[2022-04-04] MEDS: Ferrous Sulfate 300 MG/5 ML UDC NG ×2 (10:03→17:48)
[2022-04-04 10:04] LABS: ALB/GLOB Ratio 0.5 RATIO (0.9-2.4); AST(SGOT) 43 U/L (15-37); Alanine Aminotransfer ALT/SGPT 31 U/L (16-61); Albumin, Serum 2.2 g/dL (3.2-5.0); Alkaline Phosphatase 290 U/L (45-117); Anion Gap 8 (5-15); BUN 15 mg/dL (7-18); BUN/Creat Ratio 20.9 RATIO (10-20); Calcium,Total 8.5 mg/dL (8.5-10.1); Chloride 105 mmol/L (98-107); Creatinine, Serum 0.72 mg/dL (0.70-1.30); EST Glomerular Filtration Rate 115 mL/min (>60); Est Glom Filt Rate - Afr Amer 139 mL/min (>60); Estimated Creatinine Clearance 76.52 ml/min; Globulin 4.2 g/dL (2.2-4.2); Glucose 93 mg/dL (74-106); Potassium 4.2 mmol/L (3.5-5.1); Protein, Total 6.4 g/dL (6.4-8.2); Sodium Level 138 mmol/L (136-145)
[2022-04-04] MEDS: Magnesium Chloride 64 MG Delay Rel.Tablet 128 MG PO ×2 (10:04→17:48)
[2022-04-04] MEDS: Carvedilol 12.5 MG Tablet NG ×2 (10:04→17:48)
[2022-04-04] MEDS: Thiamine Hydrochloride 100 MG Tablet NG (10:04)
[2022-04-04] MEDS: Lansoprazole 15 MG Capsule.DR 30 MG NG (10:04)
[2022-04-04] MEDS: Folic Acid 1 MG Tablet NG (10:04)
[2022-04-04] MEDS: Cyanocobalamin 500 MCG Tablet 1000 MCG NG ×2 (10:04→22:17)
[2022-04-04] MEDS: Lisinopril 5 MG Tablet NG (10:04)
[2022-04-04] MEDS: Chlorhexidine 480 ML 15 ML PO ×2 (10:05→22:17)
[2022-04-04] MEDS: Calcium Carb/Vitamin D 1 TABLET Tablet NG ×2 (10:05→17:48)
[2022-04-04] MEDS: Allopurinol 100 MG Tablet NG (10:05)
[2022-04-04] MEDS: Sertraline 100 MG Tablet NG (10:05)
[2022-04-04] MEDS: Gabapentin 300 MG Capsule NG ×3 (10:07→17:49)
--- NOTE | 2022-04-04 10:59 | PN_ITS ---
Subjective Subjective Afebrile VSS Maintaining appropriate oxygen saturation on RA Oral intake - He is NPO for severe dysphagia. General surgery was consulted for a PEG tube on Monday but, never got back to nursing and I was not notified of this. Dr. Cox has been consulted today and he did get back to me and he will see Chun. Currently he is on IV fluids to maintain hydration. Discussed with nursing - no problems that need addressed Reviewed the PT/OT/ST notes Medication list reviewed. I reviewed the monorail charger operator's consult. No malnutrition. Recommendations for TF are in the note. All lab from today is personally reviewed. White blood cell count is up to 5.0 which is normal. Hemoglobin is stable and is 7.5. The platelet count is 237,000 today. PTT is a tad prolonged at 44.5....Lovenox is being held today in the event that Dr. Cox is able to do the PEG today. INR is normal. BMP is unremarkable. Alkaline phosphatase is mildly elevated, more likely than not due to recent fractures. Albumin is low at 2.2 and calcium corrected for hypoalbuminemia is within normal limits. Chun denies shortness of breath, palpitations, chest pain, N/V, dysuria, calf tenderness. He has urinary incontinence. He blames this on a TURP in the past. Jf PEÑA today. His only complaint is that he is very hungry. Objective Data Objective Data Vital Signs: Vital Signs Temp Pulse Resp BP Pulse Ox O2 Del Method O2 Flow Rate 97.2 F L 80 16 142/75 H 97 Room Air 2 04/04/22 07:28 04/04/22 07:28 04/04/22 07:28 04/04/22 07:28 04/04/22 07:28 04/04/22 07:28 04/03/22 22:00 Oxygen Flow Rate (L/min) 2 Oxygen Delivery Method Room Air Weight: 180 lb 15.992 oz Body Mass Index (BMI) 25.1 Intake & Output: Intake and Output for Last 24 Hours 04/02/22 04/03/22 04/04/22 23:59 23:59 23:59 Intake Total 1883.75 / 1883.75 1984 / 1984 1000 / 1000 Output Total 300 / 300 100 / 100 550 / 550 Balance 1583.75 / 1583.75 1885 / 1885 450 / 450 Lab / Micro Data Result Diagrams: 04/04/22 09:30 04/04/22 09:30 Labs: Laboratory Results - last 24 hr 04/04/22 09:30: PT 15.6 H, INR 1.3, APTT 44.5 H 04/04/22 09:30: WBC 5.0, RBC 2.49 L, Hgb 7.5 L, Hct 23.5 L, MCV 94.4 H, MCH 30.1, MCHC 31.9 L, RDW Std Deviation 51.3 H, RDW Coeff of [place] 14.9 H, Plt Count 237, MPV 8.9, Immature Gran % (Auto) 0.600, Neut % (Auto) 67.7, Lymph % (Auto) 23.7, [place] % (Auto) 5.6, Eos % (Auto) 1.6, Baso % (Auto) 0.8, Absolute Neuts (auto) 3.4, Absolute Lymphs (auto) 1.19, Nucleated RBC % 0 04/04/22 09:30: Sodium 138, Potassium 4.2, Chloride 105, Carbon Dioxide 25.0, Anion Gap 8, BUN 15, Creatinine 0.72, Estim Creat Clear Calc 76.52, Est GFR (MDRD) Af Amer 139, Est GFR (MDRD) Non-Af 115, BUN/Creatinine Ratio 20.9 H, Glucose 93, Calcium 8.5, Total Bilirubin 0.50, AST 43 H, ALT 31, Alkaline Phosphatase 290 H, Total Protein 6.4, Albumin 2.2 L, Globulin 4.2, Albumin/Globu sergio Ratio 0.5 L Physical Exam Const alert Constitutional Narrative: He is impulsive and has issues with memory per the therapy notes. His affect is better this admission than it has been in the past and he is more alert and seems less confused than he has been in the past 2 admissions. Speech is slurred due to poor dentition, missing teeth and FX of the R mandible. General Appearance: cooperative HEENT normocephalic HEENT Narrative: Lacerations on the face and Left frontal scalp are healing and there is no erythema and no DC. No swelling. Mouth: dry mucous membranes Eyes PERRL and EOMs intact bilaterally Resp normal respiratory effort, normal air movement and clear to auscultation bilate rally Cardio regular rate, regular rhythm, no murmurs and no gallops Cardio Narrative: No ectopy. GI normal to inspection, nondistended, normoactive bowel sounds, soft to palpation and non-tender Extremity no calf tenderness General Extremity: Negative for edema Skin General Skin Exam: no breakdown Rashes: no rashes Neuro CN's II-XII intact bilaterally Assessment & Plan Assessment/Plan (1) Debility: PLAN: Continue PT/OT/ST (2) Multiple trauma: (3) History of spinal fusion: (4) Aseptic necrosis of jaw: PLAN: Continue Peridex 15 mL twice daily (5) Peripheral neuropathy: (6) Alcoholism: PLAN: States he has not had any ETOH in several weeks. (7) Acute on chronic anemia: PLAN: Will check iron studies.....has been iron deficient in the past. Type and screen for PRBC's prior to EGD and check a HH following the PEG. (8) Immunocompromised state: PLAN: Due to MM. (9) Multiple myeloma: QUALIFIERS: Multiple myeloma remission status: unspecified Qualified Code(s): C90.00 - Multiple myeloma not having achieved remission PLAN: He is in remission and Lenalidomide is on hold since the recent surgery. (10) Dysphagia: PLAN: Severe. Dr. Cox consulted for PEG. Charges/Coding Visit Charges Inpatient E&M: 12234 Subs Hosp L2
[2022-04-04 12:38] LABS: Ferritin 1259 ng/mL (26-388); Iron 20 ug/dL (65-175); Iron Binding Capacity,Total 122 ug/dL (250-450); PERCENT IRON SATURATION 16.4 % (15.0-55.0)
--- NOTE | 2022-04-04 13:15 | CASEMGMT ---
Social Work Team meeting held. Patient present. Patient spouse, Rossi present via speaker phone. Patient plans to discharge to home with spouse at time of discharge. Medicare days to be determined. This protective services social worker educated patient and Rossi on Medicare day approval process and will update patient and Rossi when Medicare days have been approved. Patient to continue with further care and treatment on the Rehab Unit. Plan will be to re-team patient next week. Rossi concerned about time on the Inpatient Rehab Unit being enough time to allow for patient to return to home. This protective services social worker educated patient and Rossi on Medicare benefits and option for fdc home if needed. Rossi voiced understanding. Support provided. Social Work to continue to follow as needed. Fabiano Pimentel MSW, DANIEL-S
--- NOTE | 2022-04-04 16:45 | CON.PCM_ITS ---
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 He is also experiencing protein Malnutrition. He failed a swallow study therefore he needs percutaneous endoscopic gastrostomy tube placement. We will place that tomorrow. The risk and benefits of the procedure were explained to the patient along with patient's who is at the bedside. She was explained alternatives, risk, benefits including outstanding bleeding, infection, sepsis, perforation, need for emergent or . I will hold his heparin dose and I will give him preop antibiotics. HPI Consult Data Date of Consult: 04/04/22 HPI Narrative Reason for Consultation: dysphagia and failed swallow study HPI Narrative: NIDIA HICKMAN, is a 71 M who has a history of hypertension, obstructive sleep apnea, anemia, fatty liver, anemia, GI bleed, multiple myeloma, [place] trauma/hemorrhagic events, and a DVT. He is currently without his anticoagulant therapy until recently started on Heparin. He also has an extensive history of falls and he fell down some stairs at home and and sustained a C1 Nathaniel fracture, C5 vertebral body fracture, C6 superior endplate fracture, C7 TP fract ure, left vertebral artery dissection, L6 through 9 rib fractures and a? right mandible fracture.? He was admitted to [facility].? He was taken to the OR on 03/26/2022 for decompression and internal fixation of C4-C6, C3-T1 and T10?T 13. He had been scheduled for an extensive procedure to repair the osteonecrosis of the mandible and he was seen by was seen by ENT while at [place].? They recommended no surgery on the mandible until cleared by Neurosurgery which would not be for another 4-6 weeks. He was seen by PT/OT while at [place] and acute rehab was recommended at OR.? He was transferred to the acute rehab unit at [facility] on 03/31/22.?He was Having some coughing when attempting to eat or drink.? Pt. was evaluated for suspected aspiration with PO intake. His swallowing evaluation was as follows: Pt. presents with pharyngeal phase dysphagia characterized by decreased tongue base retraction, decreased laryngeal elevation and anterior hyoid excursion, delayed swallow onset, decreased pharyngeal constriction resulting in pre-spill of the bolus into the valleculae, laryngeal vestibule and pyriform sinuses prior to the swallow, pharyngeal residuals and absent epiglottic deflection.? Aspiration during the swallow was observed with thin and nectar consistencies and penetration (which was not ejected) was observed with honey and puree textures.? Aspiration and penetration is highly suspected between swallows with the pharyngeal residuals of all consistencies.? Pt. presented with throat clearing with all trials, complaint of tickle in his throat and an increase in wet/gurgly vocal quality as the study progressed.? During the trial with the cookie, pt. was unable to fully masticate the cookie and an un-masticated piece of the cookie became stuck in the vallecule.? Pt. was prompted to swallow hard and re-swallow.? Due to decreased pharyngeal constriction, re-swallow and hard swallow was unable to remove un-masticated cookie.? Pt. eventually dislodged cookie piece with honey thick trial.? However, pharyngeal residue was not cleared resulting in increased risk of aspiration between swallows. Pt. also showed signs of impulsivity during the transfer from the wheelchair into the [facility] chair by not waiting for assistance even when prompted and by taking 3 sips of a drink when prompted to take 1 sip. Pt. was educated on the results of the study and verbalized understanding. It was recommended that the patient remain n.p.o. and gastroenterology was consulted for a PEG tube placement. Initially Dr. Cox was consulted but he told me to see the patient. [facility] Medical History (Updated 04/04/22 @ 17:[address] Valero Friend, DO) Acute deep vein thrombosis (DVT) of left lower extremity Anemia Angiodysplasia of colon Angiodysplasia of stomach Aseptic necrosis of jaw Asthma Atrial fibrillation with RVR Autonomic neuropathy B12 deficiency Back pain BiPAP (biphasic positive airway pressure) dependence Bladder disease BPH with obstruction/lower urinary tract symptoms Cardiology follow-up encounter Chest pain, unspecified Chronic deep vein thrombosis (DVT) Chronic diarrhea Closed L1 vertebral fracture Closed L2 vertebral fracture Closed T11 fracture Cognitive dysfunction Colon polyps Debility DVT (deep venous thrombosis) Dysphagia Easy bruising Essential (primary) hypertension ETOH abuse Fatty liver Gastric reflux GI bleed History of CHF (congestive heart failure) History of COVID-19 History of edema History of hepatitis C History of stress test Hypomagnesemia Idiopathic gout Injury of head and neck Iron deficiency Lumbar spinal stenosis Lytic lesion of bone on x-ray Multiple myeloma not having achieved remission Neuropathy Orthostatic hypotension Osteopenia determined by x-ray Pancytopenia Prostatic enlargement Scratched by cat Shortness of breath on exertion Submandibular abscess SVT (supraventricular tachycardia) Syncope Thrombocytopenia Thyroid nodule incidentally noted on imaging study Torn ligament Urinary (tract) obstruction Wears glasses Wears hearing aid in both ears Home Medications ferrous sulfate 325 mg (65 mg iron) tablet 325 mg PO BIDCM supplement 06/18/20 [History Last Taken 11/15/21] folic acid 1 mg tablet 1 mg PO DAILY supplement 10/09/21 [History Last Taken 11/15/21] sertraline 100 mg tablet 100 mg PO DAILY depression/anxiety 10/09/21 [History Last Taken 11/15/21] calcium carbonate 500 mg-vitamin D3 5 mcg (200 unit) tablet (Oyster Shell Calcium-Vitamin D3) 1 tab PO BIDCM Supplement 10/25/21 [History Last Taken 11/15/21] acetaminophen 325 mg tablet (Tylenol) 650 mg PO Q6H PRN PRN PAIN 1-10 #0 tabs 11/03/21 [Rx Last Taken Unknown] mirtazapine 15 mg tablet 15 mg PO QHS appetitie 11/16/21 [History Last Taken 11/15/21] pantoprazole 40 mg tablet,delayed release 40 mg PO DAILY gerd 11/16/21 [History Last Taken 12/29/21] tamsulosin 0.4 mg capsule 0.4 mg PO QHS bladder 11/16/21 [History Last Taken 11/15/21] albuterol sulfate 90 mcg/actuation aerosol inhaler (Ventolin HFA) 2 puff inhalation Q4H PRN shortness of breath or wheezing #18 grams 11/19/21 [Rx Last Taken Unknown] allopurinol 100 mg tablet 100 mg PO DAILY gout 12/16/21 [History Last Taken Unknown] chlorhexidine gluconate 0.12 % mouthwash 15 ml PO BID mouthwash 01/12/22 [History Last Taken Unknown] lisinopril 5 mg tablet 5 mg PO DAILY blood pressure 01/12/22 [History Last Taken Unknown] lenalidomide 10 mg capsule (Revlimid) 1 cap PO DAILY multiple myeloma 02/23/22 [History Last Taken Unknown] aspirin 81 mg tablet,delayed release 81 mg PO DAILY asa 03/08/22 [History Last Taken Unknown] carvedilol 12.5 mg tablet 12.5 mg PO BIDCM heart 03/31/22 [History Last Taken Unknown] cyanocobalamin (vitamin B-12) 1,000 mcg tablet (Vitamin B-12) 1,000 mcg PO BID supplement 03/31/22 [History Last Taken Unknown] gabapentin 300 mg capsule 300 mg PO TIDCM neuropathy 03/31/22 [History Last Taken Unknown] lactase 3,000 unit tablet 3,000 unit PO TIDCM lactose intolerance 03/31/22 [History Last Taken Unknown] magnesium oxide 400 mg (241.3 mg magnesium) tablet 400 mg PO BIDCM supplement 03/31/22 [History Last Taken Unknown] potassium chloride 20 mEq tablet,extended release(part/cryst) (Klor-Con M) 20 meq PO BREAKFAST Supplement 03/31/22 [History Last Taken Unknown] thiamine HCl (vitamin B1) 100 mg tablet 100 mg PO DAILY supplement 03/31/22 [History Last Taken Unknown] Allergy/AdvReac Type Severity Reaction Status Date / Time No Known Allergies Allergy Verified 03/08/22 16:32 Family History Mother Heart disease Hypertension Father Hypertension Surgical History (Updated 04/01/22 @ 11:[address] Mary Ann Truong DO) History of bone marrow biopsy History of bunionectomy History of spinal fusion History of transurethral resection of prostate Hx of colonoscopy Social History household members: spouse Smoking Status: Never smoker alcohol intake: current alcohol intake frequency: 3 or more drinks per day substance use type: does not use ROS Constitutional Constitutional: Reports frequent falls; Denies anorexia, chills, fever(s) or night sweats Eyes Eyes: Reports numbness and other Details: Jaw pain on the left due to osteonecrosis ; Denies blurry vision, change in vision, eye pain or loss of vision ENT HEENT: Reports other Details: He denies dysphagia but, he failed his bedside swallowing eval with ST and he also failed MBS and has been NPO....takes meds crushed in apple sauce. ; Denies abnormal hearing, dysphagia, headache(s), hearing loss, nasal congestion or sore throat Cardiovascular Cardiovascular: Reports lightheadedness and numbness in extremities; Denies chest pain, dyspnea on exertion, edema, orthopnea, palpitations or paroxysmal nocturnal dyspnea Respiratory/Chest Respiratory/Chest: Denies cough, dyspnea, shortness of breath at rest, shortness of breath with exertion or wheezing Gastrointestinal Gastrointestinal: Denies abdominal pain, constipation, diarrhea, dyspepsia, hematemesis, hematochezia, nausea or vomiting Genitourinary Genitourinary: Denies dysuria, hematuria, nocturia, urinary frequency, urinary hesitancy, urinary incontinence or urinary urgency Musculoskeletal Musculoskeletal: Reports neck pain and stiffness; Denies back pain, joint pain, joint swelling or muscle cramps Integumentary Integumentary: Reports wounds; Denies jaundice or rash Neurologic Neurologic: Reports dizziness; Denies confusion, disequilibrium, focal weakness, headache(s), seizures or tremor(s) Psychiatric Psychiatric: Denies homicidal ideation or suicidal ideation Endocrine Endocrinology: Denies change in body appearance, polydipsia or polyuria Hematologic/Lymphatic Hematologic/Lymphatic: Denies lymphadenopathy Allergic/Immunologic Allergic/Immunologic: Denies rhinitis, eczemia or asthma Physical Exam Const alert Constitutional Narrative: Speech is slurred due to poor dentition, missing teeth and FX of the R mandible. General Appearance: cooperative HEENT normocephalic HEENT Narrative: Lacerations on the face and Left frontal scalp are healing and there is no erythema and no DC. No swelling. Mouth: dry mucous membranes Eyes PERRL and EOMs intact bilaterally Resp normal respiratory effort, normal air movement and clear to auscultation b ilaterally Cardio regular rate, regular rhythm, no murmurs and no gallops Cardio Narrative: No ectopy. GI normal to inspection, nondistended, normoactive bowel sounds, soft to palpation and non-tender Extremity no calf tenderness General Extremity: Negative for edema Skin General Skin Exam: no breakdown Rashes: no rashes Neuro CN's II-XII intact bilaterally Lab / Micro Data Result Diagrams: 04/04/22 09:30 04/04/22 09:30 Labs: Laboratory Results - last 24 hr 04/04/22 09:30: PT 15.6 H, INR 1.3, APTT 44.5 H 04/04/22 09:30: WBC 5.0, RBC 2.49 L, Hgb 7.5 L, Hct 23.5 L, MCV 94.4 H, MCH 30.1, MCHC 31.9 L, RDW Std Deviation 51.3 H, RDW Coeff of [place] 14.9 H, Plt Count 237, MPV 8.9, Immature Gran % (Auto) 0.600, Neut % (Auto) 67.7, Lymph % (Auto) 23.7, Bureau % (Auto) 5.6, Eos % (Auto) 1.6, Baso % (Auto) 0.8, Absolute Neuts (auto) 3.4, Absolute Lymphs (auto) 1.19, Nucleated RBC % 0 04/04/22 09:30: Sodium 138, Potassium 4.2, Chloride 105, Carbon Dioxide 25.0, Anion Gap 8, BUN 15, Creatinine 0.72, Estim Creat Clear Calc 76.52, Est GFR (MD FRENCH) Af Amer 139, Est GFR (MDRD) Non-Af 115, BUN/Creatinine Ratio 20.9 H, Glucose 93, Calcium 8.5, Total Bilirubin 0.50, AST 43 H, ALT 31, Alkaline Phosphatase 290 H, Total Protein 6.4, Albumin 2.2 L, Globulin 4.2, Albumin/Globulin Ratio 0.5 L 04/04/22 09:30: Iron 20 L, TIBC 122 L, Iron Saturation 16.4, Ferritin 1259 H Charges/Coding Visit Charges Inpatient E&M: 49368 Init Hosp L2
[2022-04-04 19:19] VITALS: O2SAT 95
[2022-04-04 22:00] VITALS: BP 146/75; PULSE 72; PULSE 76; RESP 17; TEMP 36.1; O2SAT 98
[2022-04-04] MEDS: Mirtazapine 15 MG Tablet NG (22:16)
[2022-04-04] MEDS: Tamsulosin HCl 0.4 MG Capsule PO (22:18)
[2022-04-05] VITALS (8 sets, daily range): BP systolic 118–155; BP diastolic 70–88; PULSE 76–84; RESP 14–106; TEMP 36.3–36.8; O2SAT 95–100
[2022-04-05] MEDS: levoFLOXacin IV 500 MG/100 ML BAG 100 MG IV (07:33)
--- NOTE | 2022-04-05 08:33 | SUR.PREOP ---
report called to rehab about pt procedure time being changed to 1130- pt taken back to rehab
[2022-04-05] MEDS: oxyCODONE Soln 5 MG/0.25 ML PO.SYRINGE NG ×3 (08:39→22:36)
--- NOTE | 2022-04-05 12:07 | OP.EGD_ITS ---
Patient Name: Isaiah Rodriguez Procedure Date: 04/05/2022 8:51 AM Date of : 1950 Age: 71 Procedure: Upper GI endoscopy Indications: Dysphagia Providers: Anjum Daniel DO Medicines: Monitored Anesthesia Care Patient Profile: This is a 71 year old male. Refer to note in patient chart for documentation of history and physical. Patient has symptoms of acute dysphagia. Complications: No immediate complications. Procedure: Pre-Anesthesia Assessment: - Prior to the procedure, a History and Physical was performed, and patient medications and allergies were reviewed. The risks and benefits of the procedure and the sedation options and risks were discussed with the patient. All questions were answered and informed consent was obtained. Patient identification and proposed procedure were verified by the physician in the pre-procedure area. Mental Status Examination: alert and oriented. Airway Examination: normal oropharyngeal airway and neck mobility. Respiratory Examination: clear to auscultation. CV Examination: normal. Prophylactic Antibiotics: The patient does not require prophylactic antibiotics. Prior Anticoagulants: The patient has taken no previous anticoagulant or antiplatelet agents. After reviewing the risks and benefits, the patient was deemed in satisfactory condition to undergo the procedure. The anesthesia plan was to use moderate sedation / analgesia (conscious sedation). Immediately prior to administration of medications, the patient was re-assessed for adequacy to receive sedatives. The heart rate, respiratory rate, oxygen saturations, blood pressure, adequacy of pulmonary ventilation, and response to care were monitored throughout the procedure. The physical status of the patient was re-assessed after the procedure. After obtaining informed consent, the endoscope was passed under direct vision. Throughout the procedure, the patient's blood pressure, pulse, and oxygen saturations were monitored continuously. The gastroscope was introduced through the mouth, and advanced to the second part of duodenum. The upper GI endoscopy was accomplished without difficulty. The patient tolerated the procedure well. Scope In: 11:44:57 AM Scope Out: 11:58:35 AM Total Procedure Duration Time 0 hours 13 minutes 38 seconds Findings: The examined esophagus was significantly tortuous. LA Grade A (one or more mucosal breaks less than 5 mm, not extending between tops of 2 mucosal folds) esophagitis with no bleeding was found 38 to 39 cm from the incisors. Patchy mildly erythematous mucosa without bleeding was found in the gastric body. The patient was placed in the supine position for PEG placement. The stomach was insufflated to appose gastric and abdominal rankin. A site was located in the body of the stomach with excellent transillumination, manual external pressure and fluoroscopy for placement. The abdominal wall was marked and prepped in a sterile manner. The area was anesthetized with 1 mL of 0.5% lidocaine. The trocar needle was introduced through the abdominal wall and into the stomach under direct endoscopic view. A snare was introduced through the endoscope and opened in the gastric lumen. The guide wire was passed through the trocar and into the open snare. The snare was closed around the guide wire. The endoscope and snare were removed, pulling the wire out through the mouth. A skin incision was made at the site of needle insertion. The externally removable 20 Fr Corpak gastrostomy tube was lubricated. The G-tube was tied to the guide wire and pulled through the mouth and into the stomach. The trocar needle was removed, and the gastrostomy tube was pulled out from the stomach through the skin. The external bumper was attached to the gastrostomy tube, and the tube was cut to remove the guide wire. The final position of the gastrostomy tube was confirmed by relook endoscopy, and skin marking noted to be 4 cm at the external bumper. The final tension and compression of the abdominal wall by the PEG tube and external bumper were checked and revealed that the bumper was loose and lightly touching the skin. The feeding tube was capped, and the tube site cleaned and dressed. The duodenal bulb was normal. Impression: - Tortuous esophagus. - LA Grade A reflux esophagitis. - Erythematous mucosa in the gastric body. - Normal duodenal bulb. - An externally removable PEG placement was successfully completed. - No specimens collected. Recommendation: - Discharge patient to home. - Resume previous diet. - Continue present medications. PEG is ok to use for tube feedings, medications and liquids today Procedure Code(s): --- Professional --- 65158, Esophagogastroduodenoscopy, flexible, transoral; with directed placement of percutaneous gastrostomy tube CPT copyright 2017 [employer] [employer]. All rights reserved. The codes documented in this report are preliminary and upon assistant corporate controller review may be revised to meet current compliance requirements. Anjum Daniel DO 04/05/2022 12:06:17 PM This report has been signed electronically. Number of Addenda: 1 Note Initiated On: 04/05/2022 8:51 AM Addendum Number: 1 Addendum Date: 06/09/2022 6:36:18 AM MAC was used as sedation for this procedure. Anjum Daniel DO 06/09/2022 6:36:24 AM This report has been signed electronically.
--- NOTE | 2022-04-05 12:07 | OP.CCLET_ITS ---
06/09/2022 Meghann Leach MD [address] [place] [address] [place] [address] Re : Upper GI endoscopy procedure for Isaiah Rodriguez Dear Dr. Leach This procedure was performed on Tuesday, April 05, 2022. My impressions and recommendations are as follows: Impressions : - Tortuous esophagus. - LA Grade A reflux esophagitis. - Erythematous mucosa in the gastric body. - Normal duodenal bulb. - An externally removable PEG placement was successfully completed. - No specimens collected. Recommendations : - Discharge patient to home. - Resume previous diet. - Continue present medications. PEG is ok to use for tube feedings, medications and liquids today My findings are described in the full procedure note, which is enclosed. If I can be of further assistance, please feel free to contact me at . Sincerely, Anjum Daniel, 04/05/2022 12:06:17 PM This report has been signed electronically.
[2022-04-05] MEDS: 0.9% Normal Saline 1,000 ML 75 ML IV (12:30)
[2022-04-05] MEDS: Calcium Carb/Vitamin D 1 TABLET Tablet NG (15:57)
[2022-04-05] MEDS: Carvedilol 12.5 MG Tablet NG (15:57)
[2022-04-05] MEDS: Ferrous Sulfate 300 MG/5 ML UDC NG (15:57)
[2022-04-05] MEDS: Gabapentin 300 MG Capsule NG (15:58)
--- NOTE | 2022-04-05 16:22 | CASEMGMT ---
Social Work Patient approved 16 Medicare days with discharge on or by 04/16/2022. This social sciences professor met with patient spouse outside patient room as patient is currently receiving nursing care. This social sciences professor updated spouse on above information. Patient spouse voiced understanding. This social sciences professor inquired about discharge plan for patient in the event that patient is unable to discharge to home from the Rehab Unit. Patient spouse reports that patient has been on TCU in the past and that TCU would be first choice if patient is unable to return to the community. Patient spouse plans to updated patient on conversation. Social Work to continue to follow. Fabiano HATHAWAY, NIRU
[2022-04-05] MEDS: Pivot 1.5 Cal 1,000 ML 60 ML GT (16:32)
[2022-04-05] MEDS: Magnesium Chloride 64 MG Delay Rel.Tablet 128 MG PO (16:39)
[2022-04-05] MEDS: Cyanocobalamin 500 MCG Tablet 1000 MCG NG (22:22)
[2022-04-05] MEDS: Mirtazapine 15 MG Tablet NG (22:23)
[2022-04-05] MEDS: Chlorhexidine 480 ML 15 ML PO (22:25)
[2022-04-05] MEDS: Acetaminophen 650 MG/20 ML UDC 975 MG NG (22:35)
[2022-04-06] MEDS: 0.9% Normal Saline 1,000 ML 75 ML IV (01:49)
[2022-04-06] MEDS: Pivot 1.5 Cal 1,000 ML 50 ML GT ×2 (06:30→17:36)
[2022-04-06 07:55] VITALS: BP 146/78; PULSE 81; RESP 16; TEMP 36.2; O2SAT 95
--- NOTE | 2022-04-06 08:58 | PCM.PROGNOTE ---
Subjective Subjective Postop day #1-status post PEG tube Afebrile VSS Maintaining appropriate oxygen saturation on RA Oral intake - remains NPO tolerating TF with no high residuals-currently on Pivot 1.540 cc an hour. We will rate is 60 cc an hour. He also has water flushes ordered. Last bowel movement was 04/01/2022 but, he has been NPO for 4 days prior to the insertion of the PEG yesterday by Dr. Daniel. Still incontinent of urine. Discussed with nursing - no problems that need addressed Reviewed the PT/OT/ST notes Medication list reviewed. No complaints today other than being hungry. Denies nausea, abdominal pain, chest pain, shortness of breath, palpitations, lightheadedness, dysuria. Objective Data Objective Data Vital Signs: Vital Signs Temp Pulse Resp BP Pulse Ox O2 Del Method O2 Flow Rate 97.2 F L 81 16 146/78 H 95 Room Air 2 04/06/22 07:55 04/06/22 07:55 04/06/22 07:55 04/06/22 07:55 04/06/22 07:55 04/06/22 07:55 04/05/22 07:49 Oxygen Flow Rate (L/min) 2 Oxygen Delivery Method Room Air Weight: 177 lb 14.609 oz Body Mass Index (BMI) 25.1 Intake & Output: Intake and Output for Last 24 Hours 04/04/22 04/05/22 04/06/22 23:59 23:59 23:59 Intake Total 1999 / 1999 1433 / 1433 998.75 / 998.75 Output Total 550 / 550 100 / 100 Balance 1450 / 1450 1433 / 1433 898.75 / 898.75 Medical Nutrition Assessment Dietitian: Malnutrition Criteria Met Start: 04/05/22 14:50 Freq: Status: Active Protocol: Document 04/05/22 14:50 AG (Rec: 04/05/22 14:50 AG [id number]) Nutrition Malnutrition Evidence of Malnutrition Exists Yes Malnutrition (severe): Acute Illness/Injury Evidenced By Suboptimal Energy Intake ( Severe),Weight Loss (Severe) Intake Problem Inadequate Oral Intake Etiology related to dysphagia Signs/Symptoms as evidenced by NPO status, inability to consume sufficient nutrition via PO diet x 5 days Status Active Problem Clinical Problem Acute Disease or Injury Related Malnutrition Etiology severe, acute malnutrition related to inadequate energy intake d/t dysphagia Signs/Symptoms as evidenced by no significant PO intake x 5 days; unintentional wt loss of 2.6kg /3% <1 week Status Active Problem Recommendation Dietitian Recommendations/Changes 1) Pivot 1.5 at goal rate of 60mL/hour w/ 150mL H2O flush every 4 hours to provide 2163 calories, 135 g protein, and 1980mL total fluid/day. Will start at 30mL/hour and increase by 10mL/hour every 8 hours as tolerated until goal rate is achieved. Once tolerated at goal rate, will transition to bolus feeds. 2) Daily wts-- monitor/trend weights closely and increase TF if wt loss occurs. 3) Close monitoring of electrolytes given acute malnutrition. Lab / Micro Data Result Diagrams: 04/06/22 10:05 04/04/22 09:30 Physical Exam Const alert, oriented x3 and no apparent distress Constitutional Narrative: Lying in bed and appears comfortable. General Appearance: cooperative HEENT HEENT Narrative: no buccal lesions and denies soreness of the tongue. No drooling. Persistent halitosis. Mouth: dry mucous membranes Resp normal respiratory effort, normal air movement and clear to auscultation bilaterally Effort and Inspection: Negative for tachypneic, respiratory distress or uses accessory muscles Cardio regular rate, regular rhythm, no murmurs, no rub and no gallops GI normal to inspection, nondistended, normoactive bowel sounds and soft to palpation GI Narrative: No guarding with palpation but c/o mild tenderness around the PEG site. The PEG site is clean with no DC and no erythema. He is tolerating the TF without any residuals Extremity no calf tenderness General Extremity: Negative for edema Skin General Skin Exam: no breakdown Rashes: no rashes Assessment & Plan Assessment/Plan (1) S/P percutaneous endoscopic gastrostomy (PEG) tube placement: PLAN: Decrease the IV rate to 30cc/hr and DC the IV when he is tolerating TF and water boluses at goal with no significant residuals (2) Oropharyngeal dysphagia: PLAN: Continue ST. Likely will continue to have dysphagia until he has the R mandible repaired. Dental note form states no dental surgery for 6 weeks from 03/26/22 due to increased risk for bacteremia in pt with new hardware in the spine. (3) Multiple trauma: PLAN: Continue PT/OT (4) Acute on chronic anemia: PLAN: Check an today. Charges/Coding Visit Charges Inpatient E&M: 26360 Subs Hosp L2
[2022-04-06 10:15] LABS: Hemoglobin 7.3 g/dL (13.0-16.5)
[2022-04-06] MEDS: Potassium Chloride Oral Soln 20 MEQ/15 ML UDC NG (10:22)
[2022-04-06] MEDS: Folic Acid 1 MG Tablet NG (10:22)
[2022-04-06] MEDS: Calcium Carb/Vitamin D 1 TABLET Tablet NG ×2 (10:22→17:30)
[2022-04-06] MEDS: Ferrous Sulfate 300 MG/5 ML UDC NG ×2 (10:22→17:30)
[2022-04-06] MEDS: Magnesium Chloride 64 MG Delay Rel.Tablet 128 MG PO (10:22)
[2022-04-06] MEDS: Carvedilol 12.5 MG Tablet NG ×2 (10:22→17:30)
[2022-04-06] MEDS: Chlorhexidine 480 ML 15 ML PO ×2 (10:23→21:39)
[2022-04-06] MEDS: Thiamine Hydrochloride 100 MG Tablet NG (10:23)
[2022-04-06] MEDS: Lansoprazole 15 MG Capsule.DR 30 MG NG (10:23)
[2022-04-06] MEDS: Sertraline 100 MG Tablet NG (10:24)
[2022-04-06] MEDS: Lisinopril 5 MG Tablet NG (10:24)
[2022-04-06] MEDS: Cyanocobalamin 500 MCG Tablet 1000 MCG NG ×2 (10:24→21:39)
[2022-04-06] MEDS: Allopurinol 100 MG Tablet NG (10:24)
[2022-04-06] MEDS: Gabapentin 300 MG Capsule NG ×3 (10:31→17:31)
[2022-04-06] MEDS: Aspirin 81 MG TAB.CHEW NG (10:31)
[2022-04-06] MEDS: oxyCODONE Soln 5 MG/0.25 ML PO.SYRINGE NG ×2 (10:32→17:31)
--- NOTE | 2022-04-06 14:16 | NURSING ---
pt in bed and holding onto peg tube asking what all i need to know aout this and how to hook it up right. pt also had reached into bedside stand for attend and changed attends for incontinence. asking to have pull ups set on bed by him to change on own. pt instructed of spinal restrictions and that in order to change pull ups would have to bend down and take pants off and on. pt then asking to get up to br to void. stood at bedside and able to void 50cc. per pt report pt with intermittant confusion.
[2022-04-06] MEDS: 0.9% Normal Saline 1,000 ML 30 ML IV (17:31)
[2022-04-06 19:35] VITALS: BP 141/80; PULSE 73; RESP 15; TEMP 36.6; O2SAT 93
[2022-04-06] MEDS: Acetaminophen 650 MG/20 ML UDC 975 MG NG (21:37)
[2022-04-06] MEDS: Mirtazapine 15 MG Tablet NG (21:39)
[2022-04-07] MEDS: oxyCODONE Soln 5 MG/0.25 ML PO.SYRINGE NG ×3 (00:47→22:04)
[2022-04-07] MEDS: Folic Acid 1 MG Tablet NG (09:18)
[2022-04-07] MEDS: Sertraline 100 MG Tablet NG (09:19)
[2022-04-07] MEDS: Chlorhexidine 480 ML 15 ML PO ×2 (09:19→22:06)
[2022-04-07] MEDS: Calcium Carb/Vitamin D 1 TABLET Tablet NG ×2 (09:19→16:51)
[2022-04-07] MEDS: Ferrous Sulfate 300 MG/5 ML UDC NG ×2 (09:19→16:49)
[2022-04-07] MEDS: Potassium Chloride Oral Soln 20 MEQ/15 ML UDC NG (09:19)
[2022-04-07] MEDS: Carvedilol 12.5 MG Tablet NG ×2 (09:19→16:49)
[2022-04-07] MEDS: Cyanocobalamin 500 MCG Tablet 1000 MCG NG ×2 (09:19→22:06)
[2022-04-07] MEDS: Allopurinol 100 MG Tablet NG (09:19)
[2022-04-07] MEDS: Lisinopril 5 MG Tablet NG (09:19)
[2022-04-07] MEDS: Lansoprazole 15 MG Capsule.DR 30 MG NG (09:19)
[2022-04-07] MEDS: Thiamine Hydrochloride 100 MG Tablet NG (09:19)
[2022-04-07] MEDS: Aspirin 81 MG TAB.CHEW NG (09:21)
[2022-04-07] MEDS: Gabapentin 300 MG Capsule NG ×3 (09:21→16:51)
[2022-04-07] MEDS: Acetaminophen 650 MG/20 ML UDC 975 MG NG ×2 (09:25→16:41)
[2022-04-07 09:31] VITALS: BP 129/62; PULSE 73; RESP 12; TEMP 36.1; O2SAT 97
[2022-04-07] MEDS: Pivot 1.5 Cal 1,000 ML 50 ML GT (09:33)
[2022-04-07] MEDS: Magnesium Hydroxide 30 ML UDC NG (12:34)
[2022-04-07 19:54] VITALS: BP 111/65; PULSE 76; RESP 16; TEMP 36.3; O2SAT 99
[2022-04-07] MEDS: Mirtazapine 15 MG Tablet NG (22:08)
[2022-04-08] VITALS (7 sets, daily range): BP systolic 101–144; BP diastolic 61–77; PULSE 74–79; RESP 16–19; TEMP 36.2–37.1; O2SAT 96–99
--- NOTE | 2022-04-08 00:43 | NURSING ---
PT W/INTERMITTENT CONFUSION THIS SHIFT. CONFUSING DAYTIME & NIGHTTIME. PRESSING THE CALL LIGHT, BUT FALLING ASLEEP BEFORE WE ENTER HIS ROOM. ASKED FOR HIS MEDICINE CUP THAT SOMEONE JUST LEFT HERE ON MY TABLE WHEN NO MED CUP WAS PRESENT. WILL MONITOR FOR REMAINDER OF SHIFT.
[2022-04-08] MEDS: Pivot 1.5 Cal 1,000 ML 60 ML GT (03:21)
--- NOTE | 2022-04-08 05:57 | NURSING ---
PT RESTLESS T/O THE NIGHT AND HAVING DIFFICULTY STAYING ASLEEP. WAKES UP BRIEFLY MANY TIMES AND QUICKLY FALLS BACK TO SLEEP.
[2022-04-08] MEDS: Acetaminophen 650 MG/20 ML UDC 975 MG NG ×3 (07:51→22:38)
[2022-04-08] MEDS: Potassium Chloride Oral Soln 20 MEQ/15 ML UDC NG (07:51)
[2022-04-08] MEDS: Ferrous Sulfate 300 MG/5 ML UDC NG ×2 (07:52→16:27)
[2022-04-08] MEDS: Allopurinol 100 MG Tablet NG (07:52)
[2022-04-08] MEDS: Lisinopril 5 MG Tablet NG (07:52)
[2022-04-08] MEDS: Sertraline 100 MG Tablet NG (07:52)
[2022-04-08] MEDS: Cyanocobalamin 500 MCG Tablet 1000 MCG NG ×2 (07:52→20:46)
[2022-04-08] MEDS: Calcium Carb/Vitamin D 1 TABLET Tablet NG ×2 (07:53→16:27)
[2022-04-08] MEDS: Lansoprazole 15 MG Capsule.DR 30 MG NG (07:53)
[2022-04-08] MEDS: Carvedilol 12.5 MG Tablet NG ×2 (07:53→16:29)
[2022-04-08] MEDS: Folic Acid 1 MG Tablet NG (07:53)
[2022-04-08] MEDS: Gabapentin 300 MG Capsule NG ×3 (07:53→16:29)
[2022-04-08] MEDS: Thiamine Hydrochloride 100 MG Tablet NG (07:53)
[2022-04-08] MEDS: Chlorhexidine 480 ML 15 ML PO ×2 (07:54→20:48)
[2022-04-08] MEDS: oxyCODONE Soln 5 MG/0.25 ML PO.SYRINGE NG ×3 (08:01→22:38)
[2022-04-08] MEDS: Aspirin 81 MG TAB.CHEW NG (08:01)
--- NOTE | 2022-04-08 08:41 | PN_ITS ---
Subjective Subjective Afebrile VSS Maintaining appropriate oxygen saturation on RA Oral intake is NPO - tolerating TF's with no residual. Had a good BM yesterday after MOM. Discussed with nursing - yesterday he was intermittently confused but was easily reoriented. He did not sleep well last night and was restless. This morning he is complaining to nursing that he has right side chest pain that increases with breathing. He has been off pharmacologic DVT prophylaxis and on SCDs and TANYA hose because of the recent spinal surgeries. Reviewed the PT/OT/ST notes Medication list reviewed. Chun tells me that the R lateral CP in the lower lung zone started yesterday but, it much worse today. No hemoptysis. He has SOB when he is moving around in the bed. The pain is sharp and it increases with inspirations. No cough. Has a hx of PE in the past and he had spinal surgeries on 03/26/22 and pharmacologic prophylaxis was held. He has been on SCD's and TEDS. He denies calf pain but he is c/o of new pain in the R thigh laterally. Nursing has been unable to reach the neurosurgeon at [facility] to inquire whether we can start prophylactic Lovenox. He has some pain in the left trapezius muscle but PEÑA's have improved. Objective Data Objective Data Vital Signs: Vital Signs Temp Pulse Resp BP Pulse Ox O2 Del Method O2 Flow Rate 98.7 F 78 16 137/74 H 99 Nasal Cannula 2 04/08/22 07:35 04/08/22 07:35 04/08/22 07:35 04/08/22 07:35 04/08/22 07:35 04/08/22 07:35 04/08/22 07:35 Oxygen Flow Rate (L/min) 2 Oxygen Delivery Method Nasal Cannula Weight: 177 lb 14.609 oz Body Mass Index (BMI) 25.1 Intake & Output: Intake and Output for Last 24 Hours 04/06/22 04/07/22 04/08/22 23:59 23:59 23:59 Intake Total 2636.00 / 2636.00 3067.0 / 3067.0 527.5 / 527.5 Output Total 200 / 200 300 / 300 100 / 100 Balance 2436.00 / 2436.00 2767.0 / 2767.0 427.5 / 427.5 Medical Nutrition Assessment Dietitian: Malnutrition Criteria Met Start: 04/05/22 14:50 Freq: Status: Active Protocol: Document 04/05/22 14:50 AG (Rec: 04/05/22 14:50 AG [id number]) Nutrition Malnutrition Evidence of Malnutrition Exists Yes Malnutrition (severe): Acute Illness/Injury Evidenced By Suboptimal Energy Intake ( Severe),Weight Loss (Severe) Intake Problem Inadequate Oral Intake Etiology related to dysphagia Signs/Symptoms as evidenced by NPO status, inability to consume sufficient nutrition via PO diet x 5 days Status Active Problem Clinical Problem Acute Disease or Injury Related Malnutrition Etiology severe, acute malnutrition related to inadequate energy intake d/t dysphagia Signs/Symptoms as evidenced by no significant PO intake x 5 days; unintentional wt loss of 2.6kg /3% <1 week Status Active Problem Recommendation Dietitian Recommendations/Changes 1) Pivot 1.5 at goal rate of 60mL/hour w/ 150mL H2O flush every 4 hours to provide 2163 calories, 135 g protein, and 1980mL total fluid/day. Will start at 30mL/hour and increase by 10mL/hour every 8 hours as tolerated until goal rate is achieved. Once tolerated at goal rate, will transition to bolus feeds. 2) Daily wts-- monitor/trend weights closely and increase TF if wt loss occurs. 3) Close monitoring of electrolytes given acute malnutrition. Lab / Micro Data Result Diagrams: 04/06/22 10:05 04/04/22 09:30 Physical Exam Const Constitutional Narrative: Easily arousable. Cooperative, appropriate. Grimaces and holds his R side when he takes a deep breath. HEENT HEENT Narrative: strong halitosis Eyes PERRL and EOMs intact bilaterally Resp Resp Narrative: splinting on the R side. Initially had coarse crackles laterally in the base but after a few breaths he was clear. He has 2 L of nasal O2 on and his pulse ox is 99% this morning. Cardio regular rate, regular rhythm, no rub and no gallops GI normal to inspection, nondistended, normoactive bowel sounds and soft to palpation GI Narrative: There is mild pain with palpation around the PEG site but there is no erythema and no discharge. Extremity no calf tenderness Extremity Narrative: He appears to have some edema in the right thigh and he describes pain in his thigh laterally. No erythema and no cords can be palpated in the thigh. General Extremity: Negative for cyanosis Skin General Skin Exam: no breakdown Rashes: no rashes Wound Narrative: Sutures have been removed from the incisions and all are intact with no erythema and no swelling or DC. Neuro CN's II-XII intact bilaterally and no focal motor deficits Assessment & Plan Assessment/Plan (1) Debility: (2) Multiple trauma: (3) History of spinal fusion: (4) Chest pain made worse by breathing: (5) Left rib fracture: (6) Chronic deep vein thrombosis (DVT): (7) Multiple myeloma: QUALIFIERS: Multiple myeloma remission status: unspecified Qualified Code(s): C90.00 - Multiple myeloma not having achieved remission PLAN: Plan 1. Urgent CTA of the chest. 2. CBC with diff, BMP, mag and phos 3. If the CTA is positive will need to start anticoagulation. Today makes 2 weeks from the date of the surgeries. Will continue to try and reach the surgeon and update them. 4. Continue current drug regimen for now. Charges/Coding Visit Charges Inpatient E&M: 49366 Subs Hosp L2
--- NOTE | 2022-04-08 08:53 | CT_ITS ---
EXAM: CT ANGIOGRAPHY CHEST WITH INTRAVENOUS CONTRAST CLINICAL INDICATION: Chest pain TECHNIQUE: Helically acquired angiography images were obtained of the chest with intravenous contrast. This CT exam was performed using one or more of the following dose reduction techniques: automated exposure control, adjustment of the mA and/or kV according to patient size, and/or use of iterative reconstruction technique. This report was created using [employer] report generation technology. MIP reconstructed images were created and reviewed. CONTRAST: IV 100mL Isovue-370 COMPARISON: CTA Chest dated november 16 2021 FINDINGS: PULMONARY ARTERIES: Normal. Normal in caliber. No evidence of pulmonary embolism. AORTA: Normal. Normal in caliber. No evidence of dissection. GREAT VESSELS OF AORTIC ARCH: Normal. Normal in caliber. No evidence of dissection. LUNGS AND PLEURAL SPACES: Small left pleural effusion increased in size from prior exam. Mild bibasilar compression atelectasis. Patchy airspace opacification within the right upper lobe consistent with inflammatory or infectious change. No mass. HEART: Normal. Heart size is normal. No pericardial effusion. No signs of right heart strain, ratio of right ventricle to left ventricle measures less than 1. MEDIASTINUM: Normal. No mediastinal or hilar adenopathy. Esophagus is unremarkable. No hiatal hernia. THYROID: Normal. No thyroid lesions. BONES/JOINTS: Interval surgical fixation of the thoracolumbar junction and cervical spine/T1. Diffuse degenerative changes of the spine. Stable chronic compression deformities of the T11 and T12 vertebral bodies. No suspicious lytic or blastic abnormality. SPLEEN: Spleen is mildly enlarged. TUBES, LINES AND DEVICES: Left internal jugular central venous catheter tip in the proximal superior vena cava. CT/CTA Chest W/WO Contrast IMPRESSION: 1. Focal right upper lobe groundglass density consistent with inflammatory or infectious change. 2. No evidence of acute pulmonary embolism. 3. Small left pleural effusion and bibasilar atelectasis. 4. Interval cervicothoracic and thoracolumbar surgical changes. Electronically Signed: Jose Webster MD at 9:51 EDT ,
[2022-04-08] MEDS: Saliva Substitute 237 ML BOTTLE 15 ML MUCOUS MEM ×2 (10:08→12:39)
[2022-04-08 10:18] LABS: Absolute Lymphocyte Count 1.52 X10^3/uL (0.83-4.51); Absolute Neutrophil Count 3.4 X10^3/uL (2.0-7.7); Basophil# 0.03 X10^3/uL; Basophil% 0.6 % (0-1); Eosinophil# 0.06 X10^3/uL; Eosinophils% 1.1 % (0-5); Hematocrit 22.2 % (40-54); Lymphocyte # 1.52 X10^3/ul (0.83-4.51); Lymphocyte % 28.6 % (19-41); Mean Corp Hgb Conc 31.5 g/dL (32-36); Mean Corpuscular Hgb 30.3 pg (27.0-32.0); Mean Corpuscular Volume 96.1 fL (80-94); Monocyte# 0.27 X10^3/uL; Monocyte% 5.1 % (0-10); NRBC Flagged by Analyzer 0 % (0-5); Neutrophil # 3.39 X10^3/uL (2.7-7.7); Neutrophil % 63.8 % (47-70); Platelet Count 273 K/mm3 (150-450); RBC Distribution Width CV 15.5 % (11.6-14.6); RBC Distribution Width SD 54.3 fl (35.1-43.9); Red Blood Count 2.31 M/mm3 (4.6-6.2); White Blood Count 5.3 K/mm3 (4.4-11.0)
[2022-04-08 10:43] LABS: Anion Gap 5 (5-15); BUN 32 mg/dL (7-18); BUN/Creat Ratio 48.3 RATIO (10-20); Calcium,Total 8.3 mg/dL (8.5-10.1); Chloride 106 mmol/L (98-107); Creatinine, Serum 0.66 mg/dL (0.70-1.30); EST Glomerular Filtration Rate 126 mL/min (>60); Est Glom Filt Rate - Afr Amer 153 mL/min (>60); Estimated Creatinine Clearance 76.52 ml/min; Glucose 108 mg/dL (74-106); Magnesium 1.6 mg/dL (1.6-2.6); Phosphorus 2.6 mg/dL (2.5-4.9); Potassium 4.5 mmol/L (3.5-5.1); Sodium Level 136 mmol/L (136-145)
[2022-04-08] MEDS: Enoxaparin 40 MG/0.4 ML Syringe SC (12:40)
[2022-04-08] MEDS: Pivot 1.5 Cal 1,000 ML BOTTLE 275 ML GT ×3 (15:26→20:49)
[2022-04-08] MEDS: Mirtazapine 15 MG Tablet NG (20:46)
[2022-04-09] MEDS: Pivot 1.5 Cal 1,000 ML BOTTLE 275 ML GT ×4 (05:51→19:40)
[2022-04-09] MEDS: oxyCODONE Soln 5 MG/0.25 ML PO.SYRINGE NG ×3 (05:52→19:27)
[2022-04-09] MEDS: Acetaminophen 650 MG/20 ML UDC 975 MG NG ×2 (05:52→12:07)
[2022-04-09 07:50] VITALS: BP 122/66; PULSE 72; RESP 18; TEMP 36.7; O2SAT 100
[2022-04-09] MEDS: Sertraline 100 MG Tablet NG (09:13)
[2022-04-09] MEDS: Thiamine Hydrochloride 100 MG Tablet NG (09:13)
[2022-04-09] MEDS: Folic Acid 1 MG Tablet NG (09:13)
[2022-04-09] MEDS: Allopurinol 100 MG Tablet NG (09:13)
[2022-04-09] MEDS: Carvedilol 12.5 MG Tablet NG ×2 (09:13→17:39)
[2022-04-09] MEDS: Cyanocobalamin 500 MCG Tablet 1000 MCG NG ×2 (09:13→19:28)
[2022-04-09] MEDS: Gabapentin 300 MG Capsule NG ×3 (09:13→17:39)
[2022-04-09] MEDS: Lisinopril 5 MG Tablet NG (09:13)
[2022-04-09] MEDS: Lansoprazole 15 MG Capsule.DR 30 MG NG (09:14)
[2022-04-09] MEDS: Calcium Carb/Vitamin D 1 TABLET Tablet NG ×2 (09:14→17:39)
[2022-04-09] MEDS: Ferrous Sulfate 300 MG/5 ML UDC NG ×2 (09:14→17:39)
[2022-04-09] MEDS: Aspirin 81 MG TAB.CHEW NG (09:14)
[2022-04-09] MEDS: Potassium Chloride Oral Soln 20 MEQ/15 ML UDC NG (09:14)
[2022-04-09] MEDS: Enoxaparin 40 MG/0.4 ML Syringe SC (09:14)
[2022-04-09] MEDS: Chlorhexidine 480 ML 15 ML PO ×2 (09:15→19:41)
[2022-04-09] MEDS: Magnesium Sulfate 4gm/100mL 4 GM/100 ML IV.SOLN. IV (15:35)
[2022-04-09] MEDS: 0.9% Saline Lock 10 ML Syringe IV (15:35)
[2022-04-09] MEDS: Mirtazapine 15 MG Tablet NG (19:28)
[2022-04-09 19:42] VITALS: BP 123/65; PULSE 76; RESP 17; TEMP 36.7; O2SAT 99
[2022-04-10] MEDS: oxyCODONE Soln 5 MG/0.25 ML PO.SYRINGE NG (05:14)
[2022-04-10] MEDS: Pivot 1.5 Cal 1,000 ML BOTTLE 275 ML GT ×5 (05:15→21:23)
[2022-04-10 07:51] VITALS: BP 126/70; PULSE 84; RESP 17; TEMP 36.4; O2SAT 99
[2022-04-10] MEDS: Sertraline 100 MG Tablet NG (09:57)
[2022-04-10] MEDS: Thiamine Hydrochloride 100 MG Tablet NG (09:57)
[2022-04-10] MEDS: Carvedilol 12.5 MG Tablet NG ×2 (09:57→17:15)
[2022-04-10] MEDS: Enoxaparin 40 MG/0.4 ML Syringe SC (09:57)
[2022-04-10] MEDS: Calcium Carb/Vitamin D 1 TABLET Tablet NG ×2 (09:57→17:15)
[2022-04-10] MEDS: Gabapentin 300 MG Capsule NG ×3 (09:58→17:18)
[2022-04-10] MEDS: Potassium Chloride Oral Soln 20 MEQ/15 ML UDC NG (09:58)
[2022-04-10] MEDS: Lansoprazole 15 MG Capsule.DR 30 MG NG (09:58)
[2022-04-10] MEDS: Ferrous Sulfate 300 MG/5 ML UDC NG ×2 (09:58→17:15)
[2022-04-10] MEDS: Folic Acid 1 MG Tablet NG (09:58)
[2022-04-10] MEDS: Lisinopril 5 MG Tablet NG (09:58)
[2022-04-10] MEDS: Allopurinol 100 MG Tablet NG (09:58)
[2022-04-10] MEDS: Cyanocobalamin 500 MCG Tablet 1000 MCG NG ×2 (09:59→21:23)
[2022-04-10] MEDS: Chlorhexidine 480 ML 15 ML PO ×2 (09:59→21:22)
[2022-04-10] MEDS: Aspirin 81 MG TAB.CHEW NG (10:18)
[2022-04-10 19:24] VITALS: BP 139/62; PULSE 82; RESP 16; TEMP 36.7; O2SAT 100
[2022-04-10] MEDS: Mirtazapine 15 MG Tablet NG (21:23)
[2022-04-10] MEDS: 0.9% Saline Lock 10 ML Syringe IV (21:47)
[2022-04-10 22:00] VITALS: PULSE 85; RESP 16
--- NOTE | 2022-04-11 02:46 | NURSING ---
pt set off BA and found by staff transferring self to toilet. Pt felt urgency for BM and failed to alert staff of toileting needs. Pt advised of safety protocol for RU and pt thanked staff for assistance.
[2022-04-11] MEDS: oxyCODONE Soln 5 MG/0.25 ML PO.SYRINGE NG ×2 (06:04→21:00)
[2022-04-11] MEDS: Acetaminophen 650 MG/20 ML UDC 975 MG NG ×2 (06:04→21:01)
[2022-04-11] MEDS: Pivot 1.5 Cal 1,000 ML BOTTLE 275 ML GT ×4 (06:05→21:13)
[2022-04-11] MEDS: 0.9% Saline Lock 10 ML Syringe IV (06:14)
[2022-04-11 06:34] LABS: Hemoglobin 8.7 g/dL (13.0-16.5)
[2022-04-11 07:02] LABS: Anion Gap 4 (5-15); BUN 33 mg/dL (7-18); BUN/Creat Ratio 52.2 RATIO (10-20); Calcium,Total 8.7 mg/dL (8.5-10.1); Chloride 105 mmol/L (98-107); Creatinine, Serum 0.63 mg/dL (0.70-1.30); EST Glomerular Filtration Rate 134 mL/min (>60); Est Glom Filt Rate - Afr Amer 162 mL/min (>60); Estimated Creatinine Clearance 76.52 ml/min; Glucose 127 mg/dL (74-106); Magnesium 2.1 mg/dL (1.6-2.6); Potassium 4.5 mmol/L (3.5-5.1); Sodium Level 137 mmol/L (136-145)
[2022-04-11] MEDS: Carvedilol 12.5 MG Tablet NG ×2 (08:34→17:40)
[2022-04-11] MEDS: Potassium Chloride Oral Soln 20 MEQ/15 ML UDC NG (08:34)
[2022-04-11] MEDS: Gabapentin 300 MG Capsule NG ×3 (08:34→17:40)
[2022-04-11] MEDS: Aspirin 81 MG TAB.CHEW NG (08:34)
[2022-04-11] MEDS: Ferrous Sulfate 300 MG/5 ML UDC NG ×2 (08:34→17:40)
[2022-04-11] MEDS: Folic Acid 1 MG Tablet NG (08:34)
[2022-04-11] MEDS: Enoxaparin 40 MG/0.4 ML Syringe SC (08:35)
[2022-04-11] MEDS: Thiamine Hydrochloride 100 MG Tablet NG (08:35)
[2022-04-11] MEDS: Chlorhexidine 480 ML 15 ML PO ×2 (08:35→21:01)
[2022-04-11] MEDS: Calcium Carb/Vitamin D 1 TABLET Tablet NG ×2 (08:35→17:39)
[2022-04-11] MEDS: Lansoprazole 15 MG Capsule.DR 30 MG NG (08:35)
[2022-04-11] MEDS: Sertraline 100 MG Tablet NG (08:37)
[2022-04-11] MEDS: Cyanocobalamin 500 MCG Tablet 1000 MCG NG ×2 (08:37→21:01)
[2022-04-11] MEDS: Lisinopril 5 MG Tablet NG (08:37)
[2022-04-11 10:00] VITALS: BP 146/70; PULSE 77; RESP 17; TEMP 36; O2SAT 100
[2022-04-11] MEDS: Allopurinol 100 MG Tablet NG (10:25)
--- NOTE | 2022-04-11 10:35 | PCM.PROGNOTE ---
Subjective Subjective Chun was seen on team rounds today. His Rossi was present in the room. Afebrile VSS Maintaining appropriate oxygen saturation on RA Oral intake through PEG. He is tolerating bolus feedings most of the time but had a residual of 260 and we are going to hold a feeding and recheck. without diarrhea. Remains NPO and will remain NPO until after he recovers from surgery on the R mandible and has another MBS. Last bowel movement was 04/10/2018 when it was small, soft and loose. Continues to be incontinent of urine. Discussed with nursing - no problems that need addressed Reviewed the PT/OT/ST notes Medication list reviewed. All lab was personally reviewed. Hemoglobin is 8.7 following transfusion of 1 unit of packed red blood cells for symptomatic anemia with a hemoglobin of 7.0 on 04/08/2022. Sodium, potassium and magnesium are all within normal limits today. BUN is 33 and the creatinine is stable at 0.63. Chun denies chest pain, shortness of breath, lightheadedness, nausea, abdominal pain, calf tenderness, dysuria. Objective Data Objective Data Vital Signs: Vital Signs Temp Pulse Resp BP Pulse Ox O2 Del Method O2 Flow Rate 96.8 F L 77 17 146/70 H 100 Room Air 2 04/11/22 10:00 04/11/22 10:00 04/11/22 10:00 04/11/22 10:00 04/11/22 10:00 04/11/22 10:00 04/09/22 07:50 Oxygen Flow Rate (L/min) 2 Oxygen Delivery Method Room Air Weight: 176 lb 5.917 oz Body Mass Index (BMI) 25.1 Intake & Output: Intake and Output for Last 24 Hours 04/09/22 04/10/22 04/11/22 23:59 23:59 23:59 Intake Total 1000 / 1000 1825 / 1825 Output Total 550 / 550 Balance 450 / 450 1825 / 1825 Medical Nutrition Assessment Dietitian: Malnutrition Criteria Met Start: 04/05/22 14:50 Freq: Status: Active Protocol: Document 04/08/22 13:58 RMA (Rec: 04/08/22 13:58 RMA [id number]) Nutrition Malnutrition Evidence of Malnutrition Exists Yes Malnutrition (severe): Acute Illness/Injury Evidenced By Suboptimal Energy Intake ( Severe),Weight Loss (Severe) Intake Problem Inadequate Oral Intake Etiology related to dysphagia Signs/Symptoms as evidenced by NPO status, inability to consume sufficient nutrition via PO diet x 5 days Status Active Problem Clinical Problem Acute Disease or Injury Related Malnutrition Etiology severe, acute malnutrition related to inadequate energy intake d/t dysphagia Signs/Symptoms as evidenced by no significant PO intake x 5 days; unintentional wt loss of 2.6kg /3% <1 week Status Active Problem Recommendation Dietitian Recommendations/Changes 1) Dr Truong aware and agrees to transition continuous TF to bolus at this time. Will transition to bolus TF of Pivot 1.5 Nhaum. Start with bolus of 125 mL first 2-3 feedings, increase to 200 mL next 2-3 feedings and increase to goal of 275mL bolus 5x/day w/ 100mL H2O flush before and after each bolus. Bolus tube feeds at goal to provide ~2063 calories, 129 g protein, and 2031mL total fluid/day. 2) Daily wts-- monitor/trend weights closely and increase TF if wt loss occurs. 3) Close monitoring of electrolytes given acute malnutrition. Lab / Micro Data Result Diagrams: 04/11/22 06:20 04/11/22 06:20 Labs: Laboratory Results - last 24 hr 04/11/22 06:20: Hgb 8.7 L, Hct 27.0 L 04/11/22 06:20: Sodium 137, Potassium 4.5, Chloride 105, Carbon Dioxide 28.0, Anion Gap 4 L, BUN 33 H, Creatinine 0.63 L, Estim Creat Clear Calc 76.52, Est GFR (MDRD) Af Amer 162, Est GFR (MDRD) Non-Af 134, BUN/Creatinine Ratio 52.2 H, Glucose 127 H, Calcium 8.7, Magnesium 2.1 Physical Exam Const alert Constitutional Narrative: He is sitting in the recliner at the bedside and he appears comfortable. He is enunciating better and the speech is more intelligible. General Appearance: cooperative Eyes PERRL and EOMs intact bilaterally Neck Neck Narrative: He is wearing the soft collar when he is out of bed for support and he does not fatigue as easily with PT because the collar helps him hold his head up. Resp clear to auscultation bilaterally Cardio regular rate, regular rhythm and no gallops GI normal to inspection, nondistended, normoactive bowel sounds, soft to palpation and non-tender GI Narrative: No redness or purulent DC at the PEG site. Extremity no calf tenderness General Extremity: Negative for edema Skin Skin Narrative: All incisions are intact with no dehiscence, no eloisa-incisional erythema and no purulent discharge. 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 Chun and his are agreeable to TCU following his stay in rehab. He is still requiring a lot of assistance for Showering and UB dressing. He is making good progress with ST and they have been giving him pudding and applesauce and he is able to swallow but fatigues easily and then has a wet voice. I do not feel at this point that his will be able to care for him at home. He has an appt on the with an orofacial surgeon at [facility] to discuss the timing of the mandible repair. I recommended the PEG remain in until after that surgery because I suspect his jaw may be wired shut until healing occurs. I recommend he goes [facility] from [facility] for continued PT/OT to strengthen and get him in good condition prior to another surgery. 2. I discussed the importance of following the instructions from the ST on what he is allowed to eat and I also recommend that his comes in for family training prior to transfer to an SNF to learn how to do the PEG feedings and how to supervise him when he eats to prevent aspiration. We discussed the complications of PNA in a pt with MM who has a lot of hardware in his body and the risk that the hardware could be affected if he has an infection and gets bacteremic. 3. Will continue PT/OT/ST. 4. He seems to be in a better place emotionally and physically at this time than he has been on his 2 admissions in the past. 5. If he continues to have residuals from the bolus feedings will consider adding Reglan. Charges/Coding Visit Charges Inpatient E&M: 24609 Subs Hosp L2
--- NOTE | 2022-04-11 13:05 | CASEMGMT ---
Social Work Team meeting held. Patient present as well as patient spouse. Discharge date set for 04/16/2022. Team recommending for patient to discharge to a custodial facility. Patient and patient spouse agreeable to custodial home referral. This social services counselor had perviously provided patient/patient spouse with list of nursing facilities that are local to patient geographical region and in-network with patient insurance. Patient reports that first choice is the Transitional Care Unit. Patient to continue with further care and treatment on the Rehab Unit until time of discharge. Telephone call to [facility] admission. This social services counselor made referral. Proposed discharge date: 04/16/2022 PLAN: TCU, pending acceptance. Fabiano HATHAWAY, DANIEL-S
--- NOTE | 2022-04-11 14:43 | NURSING ---
1400 tube feeding held d/t residual of 260ml. Dr Truong aware.
--- NOTE | 2022-04-11 15:57 | CHAPLAIN ---
Type of Pastoral Visit _x__ Initial Visit ___ Follow-up Visit ___ On-call Visit ___ General Patient Visit ___ Spiritual Assessment ___ Family Conference ___ Bereavement ___ Rapid Response ___ Code Blue ___ Other (describe below) Pastoral Care Referral From _x__ Patient ___ Family ___ Nurse ___ Physician ___ Stratigraphy Teacher ___ Poultry Processor ___ Other (describe below) Sacrament/Intervention _x__ Active listening ___ Anointing ___ Orthodoxy ___ Bereavement ___ Communion _x__ Marline exploration ___ _x__ Life review _x__ Prayer ___ Reconciliation ___ Sacrament of Sick _x__ Supportive presence ___ Wedding ___ Other (describe below) Pastoral Comments patient has been seen before in previous admissions and 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
[2022-04-11 19:25] VITALS: BP 134/68; PULSE 94; RESP 14; TEMP 36.7; O2SAT 99
[2022-04-11 20:54] VITALS: PULSE 84; RESP 15
[2022-04-11] MEDS: Mirtazapine 15 MG Tablet NG (21:01)
[2022-04-12] MEDS: Acetaminophen 650 MG/20 ML UDC 975 MG NG ×2 (06:20→20:50)
[2022-04-12] MEDS: oxyCODONE Soln 5 MG/0.25 ML PO.SYRINGE NG ×3 (06:21→20:50)
[2022-04-12] MEDS: Pivot 1.5 Cal 1,000 ML BOTTLE 275 ML GT ×4 (06:27→22:18)
[2022-04-12] MEDS: 0.9% Saline Lock 10 ML Syringe IV (06:30)
[2022-04-12 07:28] VITALS: BP 129/77; PULSE 73; RESP 18; TEMP 35.8; O2SAT 100
[2022-04-12] MEDS: Potassium Chloride Oral Soln 20 MEQ/15 ML UDC NG (08:43)
[2022-04-12] MEDS: Ferrous Sulfate 300 MG/5 ML UDC NG ×2 (08:43→18:48)
[2022-04-12] MEDS: Carvedilol 12.5 MG Tablet NG ×2 (08:43→18:48)
[2022-04-12] MEDS: Folic Acid 1 MG Tablet NG (08:43)
[2022-04-12] MEDS: Aspirin 81 MG TAB.CHEW NG (08:43)
[2022-04-12] MEDS: Thiamine Hydrochloride 100 MG Tablet NG (08:44)
[2022-04-12] MEDS: Calcium Carb/Vitamin D 1 TABLET Tablet NG ×2 (08:44→18:49)
[2022-04-12] MEDS: Gabapentin 300 MG Capsule NG ×3 (08:44→18:49)
[2022-04-12] MEDS: Enoxaparin 40 MG/0.4 ML Syringe SC (11:19)
[2022-04-12] MEDS: Lansoprazole 15 MG Capsule.DR 30 MG NG (11:19)
[2022-04-12] MEDS: Chlorhexidine 480 ML 15 ML PO ×2 (11:20→22:19)
[2022-04-12] MEDS: Cyanocobalamin 500 MCG Tablet 1000 MCG NG ×2 (11:20→20:58)
[2022-04-12] MEDS: Sertraline 100 MG Tablet NG (11:20)
[2022-04-12] MEDS: Lisinopril 5 MG Tablet NG (11:20)
[2022-04-12] MEDS: Allopurinol 100 MG Tablet NG (11:20)
--- NOTE | 2022-04-12 13:35 | CASEMGMT ---
Social Work Spoke with Mirian in TCU admissions - pt is accepted to transfer to TCU. SW contacted to update. Plan: DC to TCU, skilled 04/16. Arianna Islas, SAP TECHNICAL DEVELOPER DRAWER IN STITCH BONDING MACHINE
--- NOTE | 2022-04-12 14:07 | NURSING ---
Addendum entered by Radha Barrios 04/12/22 14:08: Dr vernon aware Original Note: 1400 tube feed held d/t residual greater than 100ml
[2022-04-12] MEDS: Metoclopramide 5 MG TABLET GT (18:21)
[2022-04-12 19:39] VITALS: BP 153/60; PULSE 82; RESP 18; TEMP 36.4; O2SAT 94
[2022-04-12] MEDS: Saliva Substitute 237 ML BOTTLE 15 ML MUCOUS MEM (20:55)
[2022-04-12] MEDS: Mirtazapine 15 MG Tablet NG (20:57)
[2022-04-12 22:00] VITALS: PULSE 82; RESP 16; O2SAT 97
[2022-04-12] MEDS: Albuterol Sulfate 8 gm Inhaler (60 puffs) 2 PUFF INHALATION (23:39)
[2022-04-13] MEDS: Metoclopramide 5 MG TABLET GT ×2 (05:14→17:36)
[2022-04-13] MEDS: Acetaminophen 650 MG/20 ML UDC 975 MG NG ×2 (06:27→12:46)
[2022-04-13] MEDS: oxyCODONE Soln 5 MG/0.25 ML PO.SYRINGE NG ×3 (06:27→21:32)
[2022-04-13] MEDS: Pivot 1.5 Cal 1,000 ML BOTTLE 275 ML GT ×5 (06:28→21:34)
[2022-04-13] MEDS: 0.9% Saline Lock 10 ML Syringe IV (06:43)
[2022-04-13 07:45] VITALS: BP 129/66; PULSE 75; RESP 16; TEMP 36.2; O2SAT 98
[2022-04-13] MEDS: Potassium Chloride Oral Soln 20 MEQ/15 ML UDC NG (08:05)
[2022-04-13] MEDS: Carvedilol 12.5 MG Tablet NG ×2 (08:05→17:37)
[2022-04-13] MEDS: Folic Acid 1 MG Tablet NG (08:05)
[2022-04-13] MEDS: Aspirin 81 MG TAB.CHEW NG (08:05)
[2022-04-13] MEDS: Ferrous Sulfate 300 MG/5 ML UDC NG ×2 (08:05→17:36)
[2022-04-13] MEDS: Gabapentin 300 MG Capsule NG ×3 (08:05→17:36)
[2022-04-13] MEDS: Calcium Carb/Vitamin D 1 TABLET Tablet NG ×2 (08:06→17:37)
[2022-04-13] MEDS: Thiamine Hydrochloride 100 MG Tablet NG (08:06)
[2022-04-13] MEDS: Enoxaparin 40 MG/0.4 ML Syringe SC (09:40)
[2022-04-13] MEDS: Sertraline 100 MG Tablet NG (09:40)
[2022-04-13] MEDS: Lisinopril 5 MG Tablet NG (09:40)
[2022-04-13] MEDS: Allopurinol 100 MG Tablet NG (09:40)
[2022-04-13] MEDS: Lansoprazole 15 MG Capsule.DR 30 MG NG (09:40)
[2022-04-13] MEDS: Cyanocobalamin 500 MCG Tablet 1000 MCG NG ×2 (09:41→21:32)
[2022-04-13] MEDS: Chlorhexidine 480 ML 15 ML PO ×2 (09:57→21:36)
[2022-04-13 19:30] VITALS: BP 106/57; PULSE 73; RESP 14; TEMP 37.1; O2SAT 97
[2022-04-13] MEDS: Mirtazapine 15 MG Tablet NG (21:32)
[2022-04-14] MEDS: Metoclopramide 5 MG TABLET GT ×2 (05:59→17:15)
[2022-04-14] MEDS: oxyCODONE Soln 5 MG/0.25 ML PO.SYRINGE NG (05:59)
[2022-04-14] MEDS: Pivot 1.5 Cal 1,000 ML BOTTLE 275 ML GT ×5 (06:06→21:55)
[2022-04-14 08:07] VITALS: BP 131/65; PULSE 86; RESP 20; TEMP 36.5; O2SAT 100
[2022-04-14] MEDS: Thiamine Hydrochloride 100 MG Tablet NG (08:11)
[2022-04-14] MEDS: Carvedilol 12.5 MG Tablet NG ×2 (08:11→17:14)
[2022-04-14] MEDS: Gabapentin 300 MG Capsule NG ×3 (08:11→17:17)
[2022-04-14] MEDS: Calcium Carb/Vitamin D 1 TABLET Tablet NG ×2 (08:11→17:15)
[2022-04-14] MEDS: Folic Acid 1 MG Tablet NG (08:11)
[2022-04-14] MEDS: Potassium Chloride Oral Soln 20 MEQ/15 ML UDC NG (08:11)
[2022-04-14] MEDS: Aspirin 81 MG TAB.CHEW NG (08:11)
[2022-04-14] MEDS: Ferrous Sulfate 300 MG/5 ML UDC NG ×2 (08:11→17:14)
--- NOTE | 2022-04-14 09:00 | EKG12_ITS ---
Test Reason : AM EKG Blood Pressure : / mmHG Vent. Rate : 089 BPM Atrial Rate : 089 BPM P-R Int : 162 ms QRS Dur : 080 ms QT Int : 356 ms P-R-T Axes : 013 -11 027 degrees QTc Int : 433 ms Normal sinus rhythm Normal ECG Confirmed by DAVE QUIROS, MARGARITA ([id number]), food editor PRABHJOT NARAYAN ([id number]) on 04/16/2022 7:34:02 AM Referred By: XOCHILT Confirmed By:MARGARITA ACOSTA MD
[2022-04-14] MEDS: Enoxaparin 40 MG/0.4 ML Syringe SC (10:24)
[2022-04-14] MEDS: Lisinopril 5 MG Tablet NG (10:24)
[2022-04-14] MEDS: Allopurinol 100 MG Tablet NG (10:25)
[2022-04-14] MEDS: Sertraline 100 MG Tablet NG (10:25)
[2022-04-14] MEDS: Lansoprazole 15 MG Capsule.DR 30 MG NG (10:25)
[2022-04-14] MEDS: Cyanocobalamin 500 MCG Tablet 1000 MCG NG ×2 (10:25→21:56)
[2022-04-14] MEDS: Chlorhexidine 480 ML 15 ML PO ×2 (10:26→21:56)
--- NOTE | 2022-04-14 18:00 | NURSING ---
agree with clinical assessment and findings by stefania horan this shift 04/14.
[2022-04-14] MEDS: Albuterol Sulfate 8 gm Inhaler (60 puffs) 2 PUFF INHALATION (19:53)
[2022-04-14] MEDS: Mirtazapine 15 MG Tablet NG (21:56)
[2022-04-14 22:00] VITALS: BP 126/56; PULSE 84; RESP 16; TEMP 36.4; O2SAT 99
[2022-04-14] MEDS: 0.9% Saline Lock 10 ML Syringe IV (22:13)
[2022-04-15] MEDS: Acetaminophen 650 MG/20 ML UDC 975 MG NG ×2 (01:12→09:21)
[2022-04-15] MEDS: Metoclopramide 5 MG TABLET GT ×2 (04:59→16:03)
[2022-04-15] MEDS: Pivot 1.5 Cal 1,000 ML BOTTLE 275 ML GT ×5 (06:09→22:34)
[2022-04-15] MEDS: Thiamine Hydrochloride 100 MG Tablet NG (07:54)
[2022-04-15] MEDS: Ferrous Sulfate 300 MG/5 ML UDC NG ×2 (07:54→16:03)
[2022-04-15] MEDS: Gabapentin 300 MG Capsule NG ×3 (07:54→16:03)
[2022-04-15] MEDS: Potassium Chloride Oral Soln 20 MEQ/15 ML UDC NG (07:54)
[2022-04-15] MEDS: Carvedilol 12.5 MG Tablet NG ×2 (07:54→16:03)
[2022-04-15] MEDS: Aspirin 81 MG TAB.CHEW NG (07:54)
[2022-04-15] MEDS: Folic Acid 1 MG Tablet NG (07:54)
[2022-04-15 08:36] VITALS: BP 116/64; PULSE 76; RESP 17; TEMP 36.2; O2SAT 95
[2022-04-15] MEDS: oxyCODONE Soln 5 MG/0.25 ML PO.SYRINGE NG ×2 (09:21→22:32)
[2022-04-15] MEDS: Lansoprazole 15 MG Capsule.DR 30 MG NG (10:00)
[2022-04-15] MEDS: Calcium Carb/Vitamin D 1 TABLET Tablet NG ×2 (10:00→16:03)
[2022-04-15] MEDS: Allopurinol 100 MG Tablet NG (10:01)
[2022-04-15] MEDS: Lisinopril 5 MG Tablet NG (10:01)
[2022-04-15] MEDS: Enoxaparin 40 MG/0.4 ML Syringe SC (10:01)
[2022-04-15] MEDS: Cyanocobalamin 500 MCG Tablet 1000 MCG NG ×2 (10:01→22:32)
[2022-04-15] MEDS: Sertraline 100 MG Tablet NG (10:01)
[2022-04-15] MEDS: Chlorhexidine 480 ML 15 ML PO ×2 (10:09→22:33)
[2022-04-15] MEDS: 0.9% Saline Lock 10 ML Syringe IV (18:48)
[2022-04-15 19:24] VITALS: BP 124/64; PULSE 78; RESP 18; TEMP 36.7; O2SAT 98
[2022-04-15] MEDS: Mirtazapine 15 MG Tablet NG (22:32)
--- NOTE | 2022-04-15 22:34 | NURSING ---
no residual pulled back on patients peg tube. Tube feeding given per order. No complaints of stomach cramping or pain voiced by patient. No complaints voiced
[2022-04-16] MEDS: oxyCODONE Soln 5 MG/0.25 ML PO.SYRINGE NG ×2 (05:11→11:40)
[2022-04-16] MEDS: Acetaminophen 650 MG/20 ML UDC 975 MG NG ×2 (05:12→11:40)
[2022-04-16] MEDS: Metoclopramide 5 MG TABLET GT (05:13)
[2022-04-16] MEDS: Pivot 1.5 Cal 1,000 ML BOTTLE 275 ML GT ×2 (07:04→10:45)
[2022-04-16 07:55] VITALS: BP 135/72; PULSE 83; RESP 18; TEMP 36.4; O2SAT 100
[2022-04-16] MEDS: Ferrous Sulfate 300 MG/5 ML UDC NG (08:13)
[2022-04-16] MEDS: Potassium Chloride Oral Soln 20 MEQ/15 ML UDC NG (08:13)
[2022-04-16] MEDS: Carvedilol 12.5 MG Tablet NG (08:13)
[2022-04-16] MEDS: Folic Acid 1 MG Tablet NG (08:13)
[2022-04-16] MEDS: Aspirin 81 MG TAB.CHEW NG (08:13)
[2022-04-16] MEDS: Calcium Carb/Vitamin D 1 TABLET Tablet NG (08:14)
[2022-04-16] MEDS: Gabapentin 300 MG Capsule NG ×2 (08:14→11:40)
[2022-04-16] MEDS: Thiamine Hydrochloride 100 MG Tablet NG (08:14)
--- NOTE | 2022-04-16 10:43 | PN_ITS ---
Progress Note This is a late entry for AF VSS Maintaining acceptable pulse ox on RA Tolerating TF better with the addition of Reglan to the drug regimen. Having regular bowel movements. Reviewed the PT/OT/ST notes. Chun denies chest pain, shortness of breath, palpitations, lightheadedness, nausea/vomiting/abdominal pain, dysuria, cephalgia, sore throat, cough. Physical Exam Const alert, oriented x3 and no apparent distress General Appearance: cooperative and well developed HEENT normocephalic Eyes PERRL, EOMs intact bilaterally, conjunctivae normal and no scleral icterus Neck Neck Narrative: He is wearing the soft collar when he is out of bed for support and he does not fatigue as easily with PT because the collar helps him hold his head up. General: trachea midline; Negative for lymphadenopathy Resp normal respiratory effort, normal air movement, no use of accessory muscles and clear to auscultation bilaterally Cardio regular rate, regular rhythm, no murmurs, no rub and no gallops Cardio Narrative: No ectopy. GI normal to inspection, nondistended, normoactive bowel sounds, soft to palpation, non-tender and no masses GI Narrative: No redness or purulent DC at the PEG site. Extremity no clubbing, cyanosis or edema and no calf tenderness Skin Skin Narrative: All incisions are intact with no dehiscence, no eloisa-incisional erythema and no purulent discharge. General Skin Exam: no breakdown Rashes: no rashes Wound Narrative: Sutures have been removed from the incisions and all are intact with no erythema and no swelling or DC. Neuro CN's II-XII intact bilaterally, moves all extremities and no focal motor deficits Psych cooperative, affect normal, activity/motor behavior normal, denies hallucinations, denies homicidal ideation and denies suicidal ideation Activity / Motor Behavior: appropriate eye contact Assessment & Plan Assessment/Plan (1) Debility: PLAN: Continue PT/OT/ST. Plan on discharge to the transitional care unit on 04/16/2022 for ongoing therapy. (2) Multiple trauma: (3) History of spinal fusion: PLAN: Incisions are healing and there is no evidence of infection. (4) Left rib fracture: (5) Fracture of mandible: PLAN: He plans to follow-up at [facility] for reconstruction of the mandible and has an appointment for later in April. (6) Oropharyngeal dysphagia: PLAN: Multiple loose teeth and at risk for aspiration. Continue PEG tube feedings as his main source of nutrition but he has progressed to be able to have pur?ed/pudding thick comfort foods. 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 Not able to effectively chew. At risk for aspiration. We will follow-up with [facility] head and neck surgery for reconstruction of the mandible. Expect he will be n.p.o. after surgery but has the PEG tube to maintain nutrition. (9) Obstructive sleep apnea: PLAN: Not always consistent with wearing CPAP. He wears oxygen via nasal cannula at night. (10) Peripheral neuropathy: (11) Multiple myeloma: QUALIFIERS: Multiple myeloma remission status: unspecified Qualified Code(s): C90.00 - Multiple myeloma not having achieved remission PLAN: Currently in remission. Will resume immunotherapy drug when he is able to swallow capsules. (12) Hypomagnesemia: PLAN: Continue supplement (13) Acute on chronic anemia: PLAN: Transfused with 1 unit of packed red blood cells since admission to rehab and hemoglobin is stable. (14) Cognitive dysfunction: PLAN: I suspect he has a component of CTE secondary to multiple episodes of head trauma in addition to encephalopathy associated with long-term chronic alcohol abuse. PLAN: Plan 1. Chun and his are agreeable to TCU following his stay in rehab. He is still requiring a lot of assistance for Showering and UB dressing. He is making good progress with ST and they have been giving him pudding and applesauce and he is able to swallow but fatigues easily and then has a wet voice. I do not feel at this point that his will be able to care for him at home. He has an appt on the with an orofacial surgeon at [facility] to discuss the timing of the mandible repair. I recommended the PEG remain in until after that surgery because I suspect his jaw may be wired shut until healing occurs. I recommend he goes to SNF at [facility] from rehab for continued PT/OT to strengthen and get him in good condition prior to another surgery. 2. I discussed the importance of following the instructions from the ST on what he is allowed to eat and I also recommend that his comes in for family tra ining prior to transfer to an SNF to learn how to do the PEG feedings and how to supervise him when he eats to prevent aspiration. We discussed the complications of PNA in a pt with MM who has a lot of hardware in his body and the risk that the hardware could be affected if he has an infection and gets bacteremic. 3. Will continue PT/OT/ST. 4. He seems to be in a better place emotionally and physically at this time than he has been on his 2 admissions in the past. 5. If he continues to have residuals from the bolus feedings will consider adding Reglan. Visit Charges Inpatient E&M: 03305 Subs Hosp L2
[2022-04-16] MEDS: Lansoprazole 15 MG Capsule.DR 30 MG NG (10:49)
[2022-04-16] MEDS: Enoxaparin 40 MG/0.4 ML Syringe SC (10:49)
[2022-04-16] MEDS: Lisinopril 5 MG Tablet NG (10:50)
[2022-04-16] MEDS: Allopurinol 100 MG Tablet NG (10:50)
[2022-04-16] MEDS: Sertraline 100 MG Tablet NG (10:50)
[2022-04-16] MEDS: Chlorhexidine 480 ML 15 ML PO (10:50)
[2022-04-16] MEDS: Cyanocobalamin 500 MCG Tablet 1000 MCG NG (10:50)
--- NOTE | 2022-04-16 10:59 | PCM.TXEXTCAR ---
Diet Diet Order/Speech Therapy: 04/01/22 15:46 NPO [Diet: Nothing Per Oral] Is pt able to select menu?: Yes Diet Comments: no dairy Tube Feed: Pivot 1.5 275 cc's 5X's a day Wound(s) mid back: Wound Type: Surgical Incision posterior neck: Wound Type: Surgical Incision upper back-drain sites x2: Wound Type: Puncture top of head: Wound Type: Laceration lt scalp: Wound Type: Laceration rt cheek: Wound Type: Laceration lt chin: Wound Type: Laceration rac: Wound Type: Skin Tear coccyx: Wound Type: redness, shearing LEFT UPPER ABDOMEN: Wound Type: Peg Suggestions for Active Care Times a day to sit in chair: 3 Therapies Weight Bearing: Full weight bearing Physical Therapy: Eval and Treat Occupational Therapy: Eval and Treat Speech Therapy: Eval and Treat Problem/Diagnosis (1) Debility: Status: Acute Code(s): R53.81 - Other malaise Plan: Continue PT/OT/ST. Plan on discharge to the transitional care unit on 04/16/2022 for ongoing therapy. (2) Multiple trauma: Status: Acute Code(s): T07.XXXA - Unspecified multiple injuries, initial encounter (3) History of spinal fusion: Status: Acute Code(s): Z98.1 - Arthrodesis status Plan: Incisions are healing and there is no evidence of infection. Comment: Posterior C4-C6 decompression, posterior C3-T1 instrumentation and fusion, posterior T10-L3 Instrumentation and fusion on 03/26/22 at [facility]. (4) Left rib fracture: Status: Acute Code(s): S22.32XA - Fracture of one rib, left side, initial encounter for closed fracture Comment: 6 through 9 (5) Fracture of mandible: Status: Acute Code(s): S02.609A - Fracture of mandible, unspecified, initial encounter for closed fracture Plan: He plans to follow-up at [facility] for reconstruction of the mandible and has an appointment for later in April. (6) Oropharyngeal dysphagia: Status: Acute Code(s): R13.12 - Dysphagia, oropharyngeal phase Plan: Multiple loose teeth and at risk for aspiration. Continue PEG tube feedings as his main source of nutrition but he has progressed to be able to have pur?ed/pudding thick comfort foods with the ST present. 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 Not able to effectively chew. At risk for aspiration. We will follow-up with [facility] head and neck surgery for reconstruction of the mandible. Expect he will be n.p.o. after surgery but has the PEG tube to maintain nutrition. 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 Comment: R mandible (9) Obstructive sleep apnea: Status: Chronic Code(s): G47.33 - Obstructive sleep apnea (adult) (pediatric) Plan: Not always consistent with wearing CPAP. He wears oxygen via nasal cannula at night. Comment: BiPAP 15/10 cmH2O (10) Peripheral neuropathy: Status: Chronic Code(s): G62.9 - Polyneuropathy, unspecified Comment: Due to chemotherapy for the multiple myeloma.......alcohol abuse also likely contributes to neuropathy. (11) Multiple myeloma: Status: Chronic Code(s): C90.00 - Multiple myeloma not having achieved remission Plan: Currently in remission. Will resume immunotherapy drug when he is able to swallow capsules.Capsules can not be opened and due to dysphagia he is not currently able to swallow the capsule. D/W Dr. Brunson and OK to hold med until he is able to swallow after the surgery to reconstruct the mandible. (12) Hypomagnesemia: Status: Chronic Code(s): E83.42 - Hypomagnesemia Plan: Continue supplement (13) Acute on chronic anemia: Status: Chronic Code(s): D64.9 - Anemia, unspecified Plan: Transfused with 1 unit of packed red blood cells since admission to rehab and hemoglobin is stable. (14) Cognitive dysfunction: Status: Chronic Code(s): F09 - Unspecified mental disorder due to known physiological condition Plan: I suspect he has a component of CTE secondary to multiple episodes of head trauma in addition to encephalopathy associated with long-term chronic alcohol abuse. Comment: Multifactorial. Untreated GASTON, LT alcoholism, malnutrition, ICH due to a fall. Plan 1. Chun is still requiring more assitance than his can provide and is not ready for discharge. He is being transferred to the transitional care unit today for additional therapy so that he may return home. His will need family training prior to discharge. He has an appointment with a head and neck surgeon at [facility] later in the month to schedule surgery to repair the right mandible. 2. Currently he is receiving some comfort foods but only with the speech therapist present. Will need to continue tube feed as his source of calorie/protein intake. Reglan was added to his drug regimen due to large residuals and currently he is tolerating his tube feed. No adverse reactions with Reglan. 3. Chun is concerned that he will need additional therapy following surgery to repair the mandible and is concerned that we would not take him back but I assured him that we will except him back to acute rehab for therapy post mandible repair if therapy is indicated. Allergies/Procedures Done in Hospital Allergies No Known Allergies Allergy (Verified 03/08/22 16:32) Type of Care/Length of Stay Estimated LOS: Convalescent Care Less Than 30 days Type of Care Needed: Skilled Rehab Potential: Good Prognosis: Good Additional Orders/Day of Discharge Additional Orders: CBC, CMP, phos and mag on 04/17/22 H&P will serve as current which was dated: 04/01/22 Day of Discharge: 04/16/22 Dietary and Speech Recommendations Dietitian Recommendations/Changes: 1) NPO; Will continue via PEG- Pivot 1.5 275mL bolus 5x/day w/ 100mL H2O flush before and after each bolus to provide ~2063 calories, 129 g protein, and 2031mL total fluid/day. 2) Daily wts-- monitor/trend weights closely and increase TF if wt loss occurs. 3) Close monitoring of electrolytes given acute malnutrition. Follow Up Care Please Follow Up With: Dr. Roberto Alva When: Monday Please Follow Up With: Dr. Enriqueta Fam-ENT When: Monday Discharge Plan Admission Admit Date/Time: 03/31/22 20:25 Primary Reason for Your Visit: Debility secondary to multitrauma. Attending Provider: Mary Ann Truong Primary Care Provider: Meghann Leach Consulting Providers: Sean Cox Discharge Orders/Prescriptions Prescriptions: New acetaminophen 650 mg/20.3 mL Solution 975 mg NG Q6H PRN PRN (Reason: PAIN 1-10) Qty: 0 0RF aspirin 81 mg Tablet,Chewable 81 mg NG DAILYCM Qty: 0 0RF calcium carbonate-vitamin D3 [Oyster Shell Calcium-Vit D3] 500 mg-5 mcg (200 unit) Tablet 1 tab NG BIDCM Qty: 1 0RF potassium chloride 20 mEq/15 mL Liquid 20 meq NG BREAKFAST Qty: 0 0RF albuterol sulfate [Ventolin HFA] 90 mcg/actuation Hfa Aerosol Inhaler 2 puff inhalation Q4H PRN PRN (Reason: SOB, Wheezing) Qty: 0 0RF metoclopramide HCl 5 mg Tablet 5 mg G-tube 0500,1700 Qty: 0 0RF magnesium hydroxide 400 mg/5 mL Suspension 30 ml NG .PRN X 1 PRN (Reason: Constipation) Qty: 0 0RF oxycodone 20 mg/mL Concentrate 5 mg NG Q6H PRN (Reason: Pain Score 4-10) Qty: 0 0RF heparin, porcine (PF) [Heparin LockFlush(Porcine)(PF)] 100 unit/mL Syringe 50 unit IV UD PRN (Reason: Heparin Flush) Qty: 0 0RF Pivot 1.5 Nahum 0.09 gram- 1.5 kcal/mL Liquid 275 ml G-tube 5X/DAY Qty: 0 0RF Biotene Dry Mouth Oral Rinse Mouthwash 15 ml mucous membrane 5X/DAY PRN (Reason: Dry Mouth) Qty: 0 0RF Continued albuterol sulfate [Ventolin HFA] 90 mcg/actuation HFA aerosol inhaler 2 puff inhalation Q4H PRN (Reason: shortness of breath or wheezing) Qty: 18 6RF chlorhexidine gluconate 0.12 % mouthwash 15 ml PO BID Label Comments: RINSE AND SPIT 15 ML'S TWICE DAILY AFTER BREAKFAST/BEFORE BEDTIME FOLLOWING BRUSHING AND FLOSSING Rx Instructions: after breakfast and before bedtime after brushing and flossing allopurinol 100 mg tablet 100 mg PO DAILY Label Comments: TAKE 1 TABLET BY MOUTH EVERY DAY Changed carvedilol 12.5 mg tablet 12.5 mg feeding tube BIDCM Qty: 1 0RF sertraline 100 mg Tablet 100 mg feeding tube DAILY Qty: 1 0RF cyanocobalamin (vitamin B-12) [Vitamin B-12] 1,000 mcg Tablet 1,000 mcg feeding tube BID Qty: 1 0RF thiamine HCl (vitamin B1) 100 mg Tablet 100 mg feeding tube DAILY Qty: 1 0RF aspirin 81 mg tablet,delayed release (DR/EC) 81 mg feeding tube DAILY Qty: 1 0RF magnesium oxide 400 mg (241.3 mg magnesium) tablet 400 mg feeding tube BIDCM Qty: 1 0RF Rx Instructions: TAKE 1 TABLET BY MOUTH TWICE A DAY ferrous sulfate 325 MG tablet 325 mg feeding tube BIDCM Qty: 1 0RF Rx Instructions: take with food lactase 3,000 unit Tablet 3,000 unit feeding tube TIDCM Qty: 1 0RF folic acid 1 mg Tablet 1 mg feeding tube DAILY Qty: 1 0RF lisinopril 5 mg tablet 5 mg feeding tube DAILY Qty: 1 0RF mirtazapine 15 mg tablet 15 mg feeding tube QHS Qty: 1 0RF Discontinued lenalidomide [Revlimid] 10 mg capsule 1 cap PO DAILY Rx Instructions: once daily for 21 days, off for 7 days then repeat calcium carbonate-vitamin D3 [Oyster Shell Calcium-Vit D3] 500 mg-5 mcg (200 unit) tablet 1 tab PO BIDCM acetaminophen [Tylenol] 325 mg Tablet 650 mg PO Q6H PRN PRN (Reason: PAIN 1-10) Qty: 0 0RF tamsulosin 0.4 mg capsule 0.4 mg PO QHS Label Comments: TAKE 1 CAPSULE BY MOUTH EVERYDAY AT BEDTIME No Action pantoprazole 40 mg tablet,delayed release (DR/EC) 40 mg PO DAILY potassium chloride [Klor-Con M20] 20 mEq tablet,ER particles/crystals 20 meq PO BREAKFAST gabapentin 300 mg capsule 300 mg PO TIDCM Referrals / Follow Up: Meghann Leach MD [Primary Care Provider] - Disposition Disposition (needs filled in before D/C Order can be placed): Residential Facility (1) Multiple myeloma Qualifiers: Multiple myeloma remission status: unspecified Qualified Code(s): C90.00 - Multiple myeloma not having achieved remission
--- NOTE | 2022-04-16 12:08 | DS.PCM_ITS ---
Providers Date of Admission: 03/31/22 Date of Discharge: 04/16/22 Primary Care Physician: Dr. Meghann Leach MD Consultations 04/04/22 09:01 Consult: General Surgery Routine Consulting Provider: Sean Cox Reason for Consult: peg placement EMERGENT Consult: No MD Notified: Yes Date Notified: 04/04/22 Time Notified: 09:02 Method of Notification: Text Reason For Visit: SPINAL FUSTION S/P MULTIPLE TRAUMA Diagnosis Discharge Diagnosis (1) Debility: Status: Acute Code(s): R53.81 - Other malaise Plan: Continue PT/OT/ST. Plan on discharge to the transitional care unit on 04/16/2022 for ongoing therapy. (2) Multiple trauma: Status: Acute Code(s): T07.XXXA - Unspecified multiple injuries, initial encounter (3) History of spinal fusion: Status: Acute Code(s): Z98.1 - Arthrodesis status Plan: Incisions are healing and there is no evidence of infection. (4) Left rib fracture: Status: Acute Code(s): S22.32XA - Fracture of one rib, left side, initial encounter for closed fracture (5) Fracture of mandible: Status: Acute Code(s): S02.609A - Fracture of mandible, unspecified, initial encounter for closed fracture Plan: He plans to follow-up at [facility] for reconstruction of the mandible and has an appointment for later in April. (6) Oropharyngeal dysphagia: Status: Acute Code(s): R13.12 - Dysphagia, oropharyngeal phase Plan: Multiple loose teeth and at risk for aspiration. Continue PEG tube feedings as his main source of nutrition but he has progressed to be able to have pur ?ed/pudding thick comfort foods with the ST present. 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 Not able t o effectively chew. At risk for aspiration. We will follow-up with [facility] head and neck surgery for reconstruction of the mandible. Expect he will be n.p.o. after surgery but has the PEG tube to maintain nutrition. 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 (9) Obstructive sleep apnea: Status: Chronic Code(s): G47.33 - Obstructive sleep apnea (adult) (pediatric) Plan: Not always consistent with wearing CPAP. He wears oxygen via nasal cannula at night. (10) Peripheral neuropathy: Status: Chronic Code(s): G62.9 - Polyneuropathy, unspecified (11) Multiple myeloma: Status: Chronic Code(s): C90.00 - Multiple myeloma not having achieved remission Qualifiers: Multiple myeloma remission status: unspecified Qualified Code(s): C90.00 - Multiple myeloma not having achieved remission Plan: Currently in remission. Will resume immunotherapy drug when he is able to swallow capsules. Capsules can not be opened and due to dysphagia he is not currently able to swallow the capsule. D/W Dr. Brunson and OK to hold med until he is able to swallow after the surgery to reconstruct the mandible. (12) Hypomagnesemia: Status: Chronic Code(s): E83.42 - Hypomagnesemia Plan: Continue supplement (13) Acute on chronic anemia: Status: Chronic Code(s): D64.9 - Anemia, unspecified Plan: Transfused with 1 unit of packed red blood cells since admission to rehab and hemoglobin is stable. (14) Cognitive dysfunction: Status: Chronic Code(s): F09 - Unspecified mental disorder due to known physiological condition Plan: I suspect he has a component of CTE secondary to multiple episodes of head trauma in addition to encephalopathy associated with long-term chronic alcohol abuse. Plan 1. Chun is still requiring more assitance than his can provide and is not ready for discharge. He is being transferred to the transitional care unit today for additional therapy so that he may return home. His will need family training prior to discharge. He has an appointment with a head and neck surgeon at [facility] later in the month to schedule surgery to repair the right mandible. 2. Currently he is receiving some comfort foods but only with the speech therapist present. Will need to continue tube feed as his source of calorie/protein intake. Reglan was added to his drug regimen due to large residuals and currently he is tolerating his tube feed. No adverse reactions wi th Reglan. 3. Chun is concerned that he will need additional therapy following surgery to repair the mandible and is concerned that we would not take him back but I assured him that we will except him back to acute rehab for therapy post mandible repair if therapy is indicated. Medications at Discharge Home Medications pantoprazole 40 mg tablet,delayed release 40 mg PO DAILY gerd 11/16/21 albuterol sulfate 90 mcg/actuation aerosol inhaler (Ventolin HFA) 2 puff inhalation Q4H PRN shortness of breath or wheezing #18 grams 11/19/21 allopurinol 100 mg tablet 100 mg PO DAILY gout 12/16/21 chlorhexidine gluconate 0.12 % mouthwash 15 ml PO BID mouthwash 01/12/22 gabapentin 300 mg capsule 300 mg PO TIDCM neuropathy 03/31/22 potassium chloride 20 mEq tablet,extended release(part/cryst) (Klor-Con M) 20 meq PO BREAKFAST Supplement 03/31/22 acetaminophen 650 mg/20.3 mL oral solution 975 mg (30.45 mL) NG Q6H PRN PRN PAIN 1-10 #0 mL 04/16/22 albuterol sulfate 90 mcg/actuation aerosol inhaler (Ventolin HFA) 2 puff inhalation Q4H PRN PRN SOB, Wheezing #0 grams 04/16/22 aspirin 81 mg chewable tablet 81 mg NG DAILYCM #0 tabs 04/16/22 aspirin 81 mg tablet,delayed release 81 mg feeding tube DAILY asa #1 TAB 04/16/22 calcium carbonate 500 mg-vitamin D3 5 mcg (200 unit) tablet (Oyster Shell Calcium-Vitamin D3) 1 tab NG BIDCM #1 TAB 04/16/22 carvedilol 12.5 mg tablet 12.5 mg feeding tube BIDCM heart #1 TAB 04/16/22 cyanocobalamin (vitamin B-12) 1,000 mcg tablet (Vitamin B-12) 1,000 mcg feeding tube BID supplement #1 TAB 04/16/22 ferrous sulfate 325 mg (65 mg iron) tablet 325 mg feeding tube BIDCM supplement #1 TAB 04/16/22 folic acid 1 mg tablet 1 mg feeding tube DAILY supplement #1 TAB 04/16/22 heparin, porcine (PF) 100 unit/mL intravenous syringe (Heparin Lock Flush (Porcine) (PF)) 50 unit (0.5 mL) IV UD PRN Heparin Flush #0 mL 04/16/22 lactase 3,000 unit tablet 3,000 unit feeding tube TIDCM lactose intolerance #1 TAB 04/16/22 lisinopril 5 mg tablet 5 mg feeding tube DAILY blood pressure #1 TAB 04/16/22 magnesium hydroxide 400 mg/5 mL oral suspension 30 ml NG .PRN X 1 PRN Constipation #0 mL 04/16/22 magnesium oxide 400 mg (241.3 mg magnesium) tablet 400 mg feeding tube BIDCM supplement #1 TAB 04/16/22 metoclopramide HCl 5 mg tablet 5 mg G-tube 0500,1700 #0 tabs 04/16/22 mirtazapine 15 mg tablet 15 mg feeding tube QHS appetitie #1 TAB 04/16/22 nut.tx.comp. immune systm,reg 0.09 gram-1.5 kcal/mL liquid for tube feed (Pivot 1.5 Nahum) 275 ml G-tube 5X/DAY #0 mL 04/16/22 oxycodone 20 mg/mL oral concentrate 5 mg (0.25 mL) NG Q6H PRN Pain Score 4-10 #0 mL 04/16/22 potassium chloride 20 mEq/15 mL oral liquid 20 meq (15 mL) NG BREAKFAST #0 mL 04/16/22 saliva substitute combo no.9 (Biotene Dry Mouth Oral Rinse mouthwash) 15 ml mucous membrane 5X/DAY PRN Dry Mouth #0 mL 04/16/22 sertraline 100 mg tablet 100 mg feeding tube DAILY depression/anxiety #1 TAB 04/16/22 thiamine HCl (vitamin B1) 100 mg tablet 100 mg feeding tube DAILY supplement #1 TAB 04/16/22 Hospital Course Operations - (Decompression and internal fixation of C4-C6, C3-T1 and T10-T 13 on 03/26/2022 at [facility].) Procedures Peg tube placement (04/05/[address] Valero Friend.) Summary of Care Provided Minutes Spent on Discharge: 40 Hospital Course: NIDIA HICKMAN, is a 71 YO? M well known to me from 2 previous admissions to the rehab unit at [facility]. PMH is extensive and can be reviewed below.? Nidia has a long hx of falls and he fell down some stairs at home and and sustained a C1 Nathaniel fracture, C5 vertebral body fracture, C6 superior endplate fracture, C7 TP fracture, left vertebral artery dissection, L6 through 9 rib fractures and a? right mandible fracture.? He was admitted to [facility].? He was taken to the OR on 03/26/2022 for decompression and internal fixation of C4-C6, C3-T1 and T10?T 13. He had been scheduled for an extensive procedure to repair the osteonecrosis of the mandible and he was seen by todd bronson by ENT while at [facility].? They recommended no surgery on the mandible until cleared by Neurosurgery which would not be for another 4-6 weeks. He was seen by PT/OT while at [facility] and acute rehab was recommended at [facility].? He was transferred to the acute rehab unit at [facility] on 03/31/22 for 3 hours of therapy daily to restore function at or hopefully better than function prior to the recent accident. Recent documentation was reviewed and additional recent hx was obtained. He had a stress test that was negative for ischemia.? He had PFT's that were significant for mild restrictive ventilatory impairment with symmetric reduction in diffusing capacity.? The last note from Dr. Mendes stated he had been compliant with BIPAP.? He has been seeing Dr. Leach for primary care and has be en diagnosed with B12 deficiency and was placed on oral B12 supplementation.? He had an echocardiogram at [facility] in February that showed a 55 to 60% ejection fraction with normal wall motion.? The right ventricular systolic pressure was estimated at 37 which is mildly increased.? There was no significant valvular heart disease.? He had a 72-hour Holter monitor done at [facility] that showed the predominant rhythm to be normal sinus rhythm with an average heart rate of 72.? He had occasional supraventricular ectopy with predominantly isolated PVCs with 29 supraventricular couplets.? He had 15 short runs of atrial tachycardia with the longest being 12 beats at 110 bpm.? Th ere was rare ventricular ectopy consisting of all isolated PVCs.? There was no atrial fibrillation. Chun denied having any ETOH for several weeks prior to the syncope and fall down the stairs. He has been attending [employer]ian[employer] and reading the bible and generally is in a much better place mentally and emotionally than he was on his previous 2 admissions to rehab. He was evaluated by ST and felt he was likely aspirating. On 04/01/2022 he had a modified barium swallow. He was diagnosed with severe to profound oropharyngeal dysphagia and he was made NPO. A PEG tube was inserted by Dr. Anjum Daniel on 04/05/2022. Consultation was obtained with the dietitian and prior to discharge Chun was tolerating 275 cc of Pivot 1.75 times a day. He was having some residuals and was started on Reglan 5 mg BID with good success. Hemoglobin at arrival to rehab was 7.2. He had no lightheadedness and he was not orthostatic. After the PEG the HGB dropped to 7.0 and he started c/o dizziness. He was transfused with 1 unit of PRBC's and on 04/11/2022 the hemoglobin was 8.7. White blood cell count and platelets have been within normal limits. On 04/11/2022 the magnesium was within normal limits and the potassium was 4.5. Sodium was also within normal limits. The BUN is elevated out of proportion to the creatinine, 33/0.63, and I suspect this is secondary to the high protein content of the tube feed. He is not dehydrated on physical exam and he is not orthostatic. Chun worked hard with therapy and progressed well however, he still required more assistnace than his could provide at home. Prior to discharge he had ambulated 165 feet with a wheeled walker at contact-guard assist. He has walked 165 feet with a straight cane at contact-guard assist for safety. He has completed transfers from various surfaces at [facility]. He is still requiring assistance with showering and upper body dressing. He is contact-guard assist for lower body dressing. He is contact-guard assist for toilet transfer and for tub/shower transfer. His works during the day and he is alone at home and must be able to toilet and transfer on and off the toilet at [facility]. He has an appt scheduled at [facility] in late April to discuss and plan for reconstruction of the mandible. Imaging of the distal LE will be done to evaluate the tibia for use to reconstruct his jaw. The imaging will be done after transfer to senior living and his physician wants an MRI done at a center in [facility]. Chun was transferred to TCU for additional therapy prior to going home on 04/16/22. His will need family training prior to DC from TCU to learn how to administer PEG feedings. Physical Exam Const alert, oriented x3 and no apparent distress General Appearance: cooperative HEENT normocephalic Eyes PERRL, EOMs intact bilaterally, conjunctivae normal and no scleral icterus Neck General: trachea midline; Negative for lymphadenopathy Resp normal respiratory effort, normal air movement and clear to auscultation bilaterally Cardio regular rate, regular rhythm, no murmurs, no rub and no gallops Cardio Narrative: No ectopy. GI normal to inspection, nondistended, normoactive bowel sounds, soft to palpation, non-tender and no masses GI Narrative: No redness or purulent DC at the PEG site. Extremity no clubbing, cyanosis or edema and no calf tenderness Skin Skin Narrative: All incisions are intact with no dehiscence, no eloisa-incisional erythema and no purulent discharge. General Skin Exam: no breakdown Rashes: no rashes Wound Narrative: Sutures have been removed from the incisions and all incisions are intact with no dehiscence, no erythema and no purulent discharge. Neuro CN's II-XII intact bilaterally, moves all extremities and no focal motor deficits Neuro Narrative: He has numbness in his feet which is chronic. Coordination / Balance: [id number] test normal and [id number] test normal Speech: speech abnormal Details: Positive for slurred (Slurring is related to the mandible fracture and multiple loose teeth. ) Psych cooperative, affect normal, activity/motor behavior normal, denies hallucinations, denies homicidal ideation and denies suicidal ideation Appearance: grossly normal and appropriate Attitude: calm Activity / Motor Behavior: appropriate eye contact Medical Records Data Medical Nutrition Assessment Dietitian: Malnutrition Criteria Met Start: 04/05/22 14:50 Freq: Status: Active Protocol: Document 04/11/22 11:16 (Rec: 04/11/22 11:16 [id number]) Nutrition Malnutrition Evidence of Malnutrition Exists Yes Malnutrition (severe): Acute Illness/Injury Evidenced By Suboptimal Energy Intake ( Severe),Weight Loss (Severe) Intake Problem Inadequate Oral Intake Etiology related to dysphagia Signs/Symptoms as evidenced by NPO status, inability to consume sufficient nutrition via PO diet x 5 days Status Active Problem Clinical Problem Acute Disease or Injury Related Malnutrition Etiology severe, acute malnutrition related to inadequate energy intake d/t dysphagia Signs/Symptoms as evidenced by no significant PO intake x 5 days; unintentional wt loss of 2.6kg /3% <1 week Status Active Problem Recommendation Dietitian Recommendations/Changes 1) NPO; Will continue via PEG- Pivot 1.5 275mL bolus 5x/day w/ 100mL H2O flush before and after each bolus to provide ~ 2063 calories, 129 g protein, and 2031mL total fluid/day. 2) Daily wts-- monitor/trend weights closely and increase TF if wt loss occurs. 3) Close monitoring of electrolytes given acute malnutrition. Weight / BMI Weight Weight: 174 lb 9 oz Body Mass Index (BMI) 25.1 ABG / Lab / Microbiology Data Result Diagrams: 04/11/22 06:20 04/11/22 06:20 Microbiology: Microbiology 04/16/22 08:00 Nasal Secretion SARS-CoV-2 Antigen (Rapid) - Final D/C Instructions Please Follow Up With: Dr. Roberto Alva Meaningful Use Info Meaningful Use Diagnoses (Choose all that apply): None applicable Discharge Plan Admission Admit Date/Time: 03/31/22 20:25 Primary Reason for Your Visit: Debility secondary to multitrauma. Attending Provider: Mary Ann Truong Primary Care Provider: Meghann Leach Consulting Providers: Sean Cox Discharge Orders/Prescriptions Prescriptions: New acetaminophen 650 mg/20.3 mL Solution 975 mg NG Q6H PRN PRN (Reason: PAIN 1-10) Qty: 0 0RF aspirin 81 mg Tablet,Chewable 81 mg NG DAILYCM Qty: 0 0RF calcium carbonate-vitamin D3 [Oyster Shell Calcium-Vit D3] 500 mg-5 mcg (200 unit) Tablet 1 tab NG BIDCM Qty: 1 0RF potassium chloride 20 mEq/15 mL Liquid 20 meq NG BREAKFAST Qty: 0 0RF albuterol sulfate [Ventolin HFA] 90 mcg/actuation Hfa Aerosol Inhaler 2 puff inhalation Q4H PRN PRN (Reason: SOB, Wheezing) Qty: 0 0RF metoclopramide HCl 5 mg Tablet 5 mg G-tube 0500,1700 Qty: 0 0RF magnesium hydroxide 400 mg/5 mL Suspension 30 ml NG .PRN X 1 PRN (Reason: Constipation) Qty: 0 0RF oxycodone 20 mg/mL Concentrate 5 mg NG Q6H PRN (Reason: Pain Score 4-10) Qty: 0 0RF heparin, porcine (PF) [Heparin LockFlush(Porcine)(PF)] 100 unit/mL Syringe 50 unit IV UD PRN (Reason: Heparin Flush) Qty: 0 0RF Pivot 1.5 Nahum 0.09 gram- 1.5 kcal/mL Liquid 275 ml G-tube 5X/DAY Qty: 0 0RF Biotene Dry Mouth Oral Rinse Mouthwash 15 ml mucous membrane 5X/DAY PRN (Reason: Dry Mouth) Qty: 0 0RF Continued albuterol sulfate [Ventolin HFA] 90 mcg/actuation HFA aerosol inhaler 2 puff inhalation Q4H PRN (Reason: shortness of breath or wheezing) Qty: 18 6RF chlorhexidine gluconate 0.12 % mouthwash 15 ml PO BID Label Comments: RINSE AND SPIT 15 ML'S TWICE DAILY AFTER BREAKFAST/BEFORE BEDTIME FOLLOWING [facility] Rx Instructions: after breakfast and before bedtime after brushing and flossing allopurinol 100 mg tablet 100 mg PO DAILY Label Comments: TAKE 1 TABLET BY MOUTH EVERY DAY Changed carvedilol 12.5 mg tablet 12.5 mg feeding tube BIDCM Qty: 1 0RF sertraline 100 mg Tablet 100 mg feeding tube DAILY Qty: 1 0RF cyanocobalamin (vitamin B-12) [Vitamin B-12] 1,000 mcg Tablet 1,000 mcg feeding tube BID Qty: 1 0RF thiamine HCl (vitamin B1) 100 mg Tablet 100 mg feeding tube DAILY Qty: 1 0RF aspirin 81 mg tablet,delayed release (DR/EC) 81 mg feeding tube DAILY Qty: 1 0RF magnesium oxide 400 mg (241.3 mg magnesium) tablet 400 mg feeding tube BIDCM Qty: 1 0RF Rx Instructions: TAKE 1 TABLET BY MOUTH TWICE A DAY ferrous sulfate 325 MG tablet 325 mg feeding tube BIDCM Qty: 1 0RF Rx Instructions: take with food lactase 3,000 unit Tablet 3,000 unit feeding tube TIDCM Qty: 1 0RF folic acid 1 mg Tablet 1 mg feeding tube DAILY Qty: 1 0RF lisinopril 5 mg tablet 5 mg feeding tube DAILY Qty: 1 0RF mirtazapine 15 mg tablet 15 mg feeding tube QHS Qty: 1 0RF Discontinued lenalidomide [Revlimid] 10 mg capsule 1 cap PO DAILY Rx Instructions: once daily for 21 days, off for 7 days then repeat calcium carbonate-vitamin D3 [Oyster Shell Calcium-Vit D3] 500 mg-5 mcg (200 unit) tablet 1 tab PO BIDCM acetaminophen [Tylenol] 325 mg Tablet 650 mg PO Q6H PRN PRN (Reason: PAIN 1-10) Qty: 0 0RF tamsulosin 0.4 mg capsule 0.4 mg PO QHS Label Comments: TAKE 1 CAPSULE BY MOUTH EVERYDAY AT BEDTIME No Action pantoprazole 40 mg tablet,delayed release (DR/EC) 40 mg PO DAILY potassium chloride [Klor-Con M20] 20 mEq tablet,ER particles/crystals 20 meq PO BREAKFAST gabapentin 300 mg capsule 300 mg PO TIDCM Referrals / Follow Up: Meghann Leach MD [Primary Care Provider] - Disposition Disposition (needs filled in before D/C Order can be placed): Assisted Facility Charges/Coding Visit Charges Inpatient E&M: 43238 Disch Hosp
--- NOTE | 2022-04-16 13:51 | NURSING ---
Report given to TCU, patient discharged at this time.
== END 2022-04-16 13:51 | disposition skilled nursing facility (03) | DRG 560 ==
PROVIDERS: Internal Medicine Gastroenterology; Admitting Provider Internal Medicine; PCP Internal Medicine; Visit Provider Internal Medicine
PROC: 0DJ08ZZ Inspection of Upper Intestinal Tract, Via Natural or Artificial Opening Endoscopic (ICD-10-PCS; CPT 43235; principal; 2022-04-05 08:10)
DX: S12.090D Other displaced fracture of first cervical vertebra, subsequent encounter for fracture with routine healing (principal); C90.01 Multiple myeloma in remission; M87.188 Osteonecrosis due to drugs, other site; N13.8 Other obstructive and reflux uropathy; I27.20 Pulmonary hypertension, unspecified; R13.12 Dysphagia, oropharyngeal phase; F10.20 Alcohol dependence, uncomplicated; K21.9 Gastro-esophageal reflux disease without esophagitis; D50.9 Iron deficiency anemia, unspecified; G47.33 Obstructive sleep apnea (adult) (pediatric); W10.9XXD Fall (on) (from) unspecified stairs and steps, subsequent encounter; G62.9 Polyneuropathy, unspecified; I10 Essential (primary) hypertension; M10.00 Idiopathic gout, unspecified site; F43.10 Post-traumatic stress disorder, unspecified; N40.1 Benign prostatic hyperplasia with lower urinary tract symptoms; S12.400D Unspecified displaced fracture of fifth cervical vertebra, subsequent encounter for fracture with routine healing; Z86.16 Personal history of COVID-19; S12.590D Other displaced fracture of sixth cervical vertebra, subsequent encounter for fracture with routine healing; S12.600D Unspecified displaced fracture of seventh cervical vertebra, subsequent encounter for fracture with routine healing; S22.42XD Multiple fractures of ribs, left side, subsequent encounter for fracture with routine healing; S02.641D Fracture of ramus of right mandible, subsequent encounter for fracture with routine healing; Z86.718 Personal history of other venous thrombosis and embolism; Z79.899 Other long term (current) drug therapy; Z98.1 Arthrodesis status; R32 Unspecified urinary incontinence
CPT/HCPCS: 71275; 74230; 80048; 80053; 80076; 82728; 83540; 83550; 83735; 84100; 85014; 85018; 85025; 85027; 85610; 85730; 86850; 86900; 86901; 86920; 86922; 87426; 92507; 92526; 92610; 92611; 93005; 97110; 97116; 97162; 97166; 97530; 97535; 97802; 97803; J7030; P9016; Q9967; A4216; J2405

== ENCOUNTER 2022-04-16 14:00 | Inpatient (IN) | payer MEDICARE, BC, SELFPAY ==
[2022-04-16 14:29] VITALS: BP 96/56; PULSE 73; RESP 16; TEMP 36.1; O2SAT 90
[2022-04-16 15:28] VITALS: BMI 24.0
--- NOTE | 2022-04-16 16:37 | HP.PCM_ITS ---
[facility] - General General Date of Admission: 04/16/22 Date of Service: 04/18/22 Chief Complaint: Here for rehab. HPI Narrative NIDIA HICKMAN, is a 71 Male who presents with followin03/26/2022 [facility] performed decompression, internal fixation of C4-C6, C3-T1, T10-T13. 03/31/2022 Admit to RU. Dental surgery for osteonecrosis, fracture right mandible on hold for 6 weeks due to spinal surgery. 04/04/2022 NPO, IV fluids for severe dysphagia. 04/05/2022 Dr. Daniel placed PEG tube. 04/06/2022 Tolerating tube feed. Incontinent of urine. 04/08/2022 Intermittent confusion. CTA chest for chest pain negative pulmonary embolism. Transfuse 1 unit PRBC. 04/11/2022 NPO until recovers from dental, right mandible surgery. Hemoglobin 8.7. Speech Therapy gave pudding, apple sauce. 04/16/2022 Admit to TCU with debility, here for rehabilitation, strengthening, prior to discharge home with . [facility] Medical History Acute deep vein thrombosis (DVT) of left lower extremity Anemia Angiodysplasia of colon Angiodysplasia of stomach Aseptic necrosis of jaw Asthma Atrial fibrillation with RVR Autonomic neuropathy B12 deficiency Back pain BiPAP (biphasic positive airway pressure) dependence Bladder disease BPH with obstruction/lower urinary tract symptoms Cardiology follow-up encounter Chest pain, unspecified Chronic deep vein thrombosis (DVT) Chronic diarrhea Closed L1 vertebral fracture Closed L2 vertebral fracture Closed T11 fracture Cognitive dysfunction Colon polyps Debility DVT (deep venous thrombosis) Easy bruising Essential (primary) hypertension ETOH abuse Fatty liver Gastric reflux GI bleed History of CHF (congestive heart failure) History of COVID-19 History of edema History of hepatitis C History of stress test Hypomagnesemia Idiopathic gout Injury of head and neck Iron deficiency Lumbar spinal stenosis Lytic lesion of bone on x-ray Multiple myeloma not having achieved remission Neuropathy Orthostatic hypotension Osteopenia determined by x-ray Pancytopenia Prostatic enlargement Scratched by cat Shortness of breath on exertion Submandibular abscess SVT (supraventricular tachycardia) Syncope Thrombocytopenia Thyroid nodule incidentally noted on imaging study Torn ligament Urinary (tract) obstruction Wears glasses Wears hearing aid in both ears Home Medications pantoprazole 40 mg tablet,delayed release 40 mg PO DAILY gerd 11/16/21 [History Last Taken 12/29/21] albuterol sulfate 90 mcg/actuation aerosol inhaler (Ventolin HFA) 2 puff in halation Q4H PRN shortness of breath or wheezing #18 grams 11/19/21 [Rx Last Taken Unknown] allopurinol 100 mg tablet 100 mg feeding tube DAILY gout 12/16/21 [History Last Taken Unknown] chlorhexidine gluconate 0.12 % mouthwash 15 ml PO BID mouthwash 01/12/22 [History Last Taken Unknown] gabapentin 300 mg capsule 300 mg PO TIDCM neuropathy 03/31/22 [History Last Taken Unknown] acetaminophen 650 mg/20.3 mL oral solution 975 mg (30.45 mL) NG Q6H PRN PRN PAIN 1-10 #0 mL 04/16/22 [Rx Last Taken Unknown] aspirin 81 mg chewable tablet 81 mg NG DAILY heart health 04/16/22 [History Last Taken Unknown] calcium carbonate 500 mg-vitamin D3 5 mcg (200 unit) tablet (Oyster Shell Calcium-Vitamin D3) 1 tab NG BIDCM supplement 04/16/22 [History Last Taken Unknown] carvedilol 12.5 mg tablet 12.5 mg feeding tube BIDCM heart #1 TAB 04/16/22 [Rx Last Taken Unknown] cyanocobalamin (vitamin B-12) 1,000 mcg tablet (Vitamin B-12) 1,000 mcg feeding tube BID supplement #1 TAB 04/16/22 [Rx Last Taken Unknown] ferrous sulfate 325 mg (65 mg iron) tablet 325 mg feeding tube BIDCM supplement #1 TAB 04/16/22 [Rx Last Taken 11/15/21] folic acid 1 mg tablet 1 mg feeding tube DAILY supplement #1 TAB 04/16/22 [Rx L ast Taken 11/15/21] heparin, porcine (PF) 100 unit/mL intravenous syringe (Heparin Lock Flush (Porci ne) (PF)) 50 unit (0.5 mL) IV UD PRN Heparin Flush #0 mL 04/16/22 [Rx Last Taken Unknown] lactase 3,000 unit tablet 3,000 unit feeding tube TIDCM lactose intolerance #1 TAB 04/16/22 [Rx Last Taken Unknown] lisinopril 5 mg tablet 5 mg feeding tube DAILY blood pressure #1 TAB 04/16/22 [Rx Last Taken Unknown] magnesium hydroxide 400 mg/5 mL oral suspension 30 ml feeding tube .PRN X 1 PRN Constipation 04/16/22 [History Last Taken Unknown] magnesium oxide 400 mg (241.3 mg magnesium) tablet 400 mg feeding tube BIDCM supplement #1 TAB 04/16/22 [Rx Last Taken Unknown] metoclopramide HCl 5 mg tablet 5 mg G-tube 0500,1700 stomach 04/16/22 [History Last Taken Unknown] mirtazapine 15 mg tablet 15 mg feeding tube QHS appetitie #1 TAB 04/16/22 [Rx Last Taken 11/15/21] nut.tx.comp. immune systm,reg 0.09 gram-1.5 kcal/mL liquid for tube feed (Pivot 1.5 Nahum) 275 ml G-tube 5X/DAY nutrition 04/16/22 [History Last Taken Unknown] oxycodone 20 mg/mL oral concentrate 5 mg (0.25 mL) NG Q6H PRN Pain Score 4-10 #0 mL 04/16/22 [Rx Last Taken Unknown] potassium chloride 20 mEq/15 mL oral liquid 20 meq feeding tube BREAKFAST supplement 04/16/22 [History Last Taken Unknown] saliva substitute combo no.9 (Biotene Dry Mouth Oral Rinse mouthwash) 15 ml mucous membrane 5X/DAY PRN Dry Mouth #0 mL 04/16/22 [Rx Last Taken Unknown] sertraline 100 mg tablet 100 mg feeding tube DAILY depression/anxiety #1 TAB 04/16/22 [Rx Last Taken 11/15/21] thiamine HCl (vitamin B1) 100 mg tablet 100 mg feeding tube DAILY supplement #1 TAB 04/16/22 [Rx Last Taken Unknown] Allergy/AdvReac Type Severity Reaction Status Date / Time No Known Allergies Allergy Verified 03/08/22 16:32 Family History Mother Heart disease Hypertension Father Hypertension Surgical History History of bone marrow biopsy History of bunionectomy History of spinal fusion History of transurethral resection of prostate Hx of colonoscopy Social History household members: spouse Smoking Status: Never smoker alcohol intake: current alcohol intake frequency: 3 or more drinks per day substance use type: does not use ROS Constitutional Constitutional: Denies chills, fever(s) or weight gain ENT HEENT: Denies headache(s), nasal congestion or nasal discharge Cardiovascular Cardiovascular: Denies chest pain or palpitations Respiratory/Chest Respiratory/Chest: Denies cough, excessive phlegm production or shortness of breath with exertion Gastrointestinal Gastrointestinal: Denies abdominal pain, nausea or vomiting Genitourinary Genitourinary: Denies dysuria Musculoskeletal Musculoskeletal: Denies joint pain or joint swelling Integumentary Integumentary: Denies rash or wounds Neurologic Neurologic: Denies focal weakness, numbness or tingling Psychiatric Psychiatric: Denies anxiety, auditory hallucinations, depression, homicidal id eation or suicidal ideation Vital Signs Vital Signs Vital Signs: 04/16/22 14:29 04/16/22 16:13 Temperature 96.9 F L Temperature Source Temporal Pulse Rate 73 Pulse Strength Normal (2+) Respiratory Rate 16 Blood Pressure 96/56 L Blood Pressure Mean 69 Blood Pressure Source Monitor Blood Pressure Position Sitting Blood Pressure Location Left Arm Pulse Ox 90 Oxygen Delivery Method Room Air Weight Weight: 80.195 kg Body Mass Index (BMI) 24.0 Physical Exam Const alert General Appearance: cooperative HEENT normocephalic Eyes PERRL and EOMs intact bilaterally Neck supple, no JVD and no carotid bruits Resp normal respiratory effort, normal air movement and clear to auscultation bilaterally Cardio regular rate and regular rhythm GI normal to inspection, nondistended, normoactive bowel sounds, non-tender and non-distended GI Narrative: PEG tube. 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: (6) C6 cervical fracture: (7) C7 cervical fracture: (8) C5 vertebral fracture: (9) Nathaniel fracture: (10) Multiple trauma: (11) Left rib fracture: (12) History of spinal fusion: (13) Alcoholism: (14) Iron deficiency anemia: (15) Depression: (16) Appetite loss: (17) Gastroesophageal reflux disease: (18) Benign prostate hyperplasia: (19) Gout: (20) Multiple myeloma: (21) Neuropathic pain: (22) Hypokalemia: (23) Obstructive sleep apnea: PLAN: Plan 71 year old male with below past medical history hospitalized for multiple cervical fractures, underwent decompression, internal fixation cervical spine, admitted to , complicated by dysphagia requiring PEG tube placement, due to right mandible fracture, osteonecrosis, admitted to TCU with debility, here for rehabilitation, strengthening, prior to discharge home with . * Debility - PT/OT. * Dysphagia - ST. * Pain - Tylenol 975mg q6h prn pain (1-10), Oxycodone 5mg q6h prn pain (4-10). * Bowel - MOM 30ml x1 prn. * Adult immunization - Administer pneumonia vaccine, covid19 vaccine, flu vaccine as appropriate. * DVT prophylaxis - Hold, anemia. * Shortness of breath - Albuterol MDI 2 puffs q6h prn. * Gout - Allopurinol 100mg daily. * CV prophylaxis - Aspirin 81mg daily. * Calcium deficiency - Calcium D bid. * Hypertension - Coreg 12.5mg bid, Lisinopril 5mg daily. * Oral Hygiene - Peridex 15ml bid, Saliva 15ml 5x/day prn. * B12 deficiency - B12 1000mcg bid. * Iron deficiency anemia - Ferrous sulfate 300mg bid. * Alcohol abuse - Thiamine 100mg daily, Folic Acid 1mg daily. * Neuropathic pain - Gabapentin 300mg tid. * Lactase deficiency - Lactase 3000 units tid. * GERD - Lansoprazole 30mg daily. * Gastroparesis - Reglan 5mg bid. * Appetite loss - Mirtazapine 15mg qhs, stable chronic alf use, GDR not recommended. * Nutrition - Pivot 1.5 275ml 5x/day. * Hypokalemia - KCL 20meq daily. * Depression - Sertraline 100mg daily, stable chronic roasterman use, GDR not recommended.
[2022-04-16] MEDS: Metoclopramide 5 MG TABLET GT (18:07)
[2022-04-16] MEDS: Calcium Carb/Vitamin D 1 TABLET Tablet GT (18:07)
[2022-04-16] MEDS: Ferrous Sulfate 300 MG/5 ML UDC GT (18:07)
[2022-04-16] MEDS: Cyanocobalamin 500 MCG Tablet 1000 MCG GT (18:08)
[2022-04-16] MEDS: Pivot 1.5 Cal 1,000 ML BOTTLE 275 ML GT ×2 (18:09→21:12)
[2022-04-16] MEDS: Gabapentin 300 MG Capsule GT (18:13)
[2022-04-16] MEDS: Carvedilol 12.5 MG Tablet GT (18:17)
[2022-04-16 18:50] VITALS: PULSE 80; RESP 16; O2SAT 98
[2022-04-16] MEDS: Acetaminophen 650 MG/20 ML UDC 975 MG GT (21:10)
[2022-04-16] MEDS: Mirtazapine 15 MG Tablet GT (21:10)
[2022-04-16] MEDS: Chlorhexidine 480 ML 15 ML PO (21:13)
[2022-04-16] MEDS: oxyCODONE Soln 5 MG/0.25 ML PO.SYRINGE SL (21:29)
[2022-04-17] MEDS: Lisinopril 5 MG Tablet GT (05:05)
[2022-04-17] MEDS: Sertraline 100 MG Tablet GT (05:05)
[2022-04-17] MEDS: Allopurinol 100 MG Tablet GT (05:05)
[2022-04-17] MEDS: Lansoprazole 15 MG Capsule.DR 30 MG GT (05:05)
[2022-04-17] MEDS: Metoclopramide 5 MG TABLET GT ×2 (05:06→17:16)
[2022-04-17] MEDS: Pivot 1.5 Cal 1,000 ML BOTTLE 275 ML GT ×5 (05:12→20:50)
[2022-04-17] MEDS: oxyCODONE Soln 5 MG/0.25 ML PO.SYRINGE SL ×3 (05:26→20:47)
[2022-04-17 05:28] VITALS: BP 127/74; PULSE 83
[2022-04-17 07:15] LABS: Absolute Lymphocyte Count 1.75 X10^3/uL (0.83-4.51); Basophil# 0.01 X10^3/uL; Basophil% 0.2 % (0-1); Eosinophil# 0.17 X10^3/uL; Hematocrit 27.9 % (40-54); Hemoglobin 8.9 g/dL (13.0-16.5); Lymphocyte # 1.75 X10^3/ul (0.83-4.51); Lymphocyte % 30.8 % (19-41); Mean Corp Hgb Conc 31.9 g/dL (32-36); Mean Corpuscular Hgb 29.7 pg (27.0-32.0); Mean Platelet Vol. 9.2 fl (6.2-12.0); Monocyte# 0.74 X10^3/uL; NRBC Flagged by Analyzer 0 % (0-5); Neutrophil # 2.99 X10^3/uL (2.7-7.7); Neutrophil % 52.6 % (47-70); Platelet Count 250 K/mm3 (150-450); RBC Distribution Width SD 51.6 fl (35.1-43.9); White Blood Count 5.7 K/mm3 (4.4-11.0)
[2022-04-17 07:39] LABS: Anion Gap 7 (5-15); BUN 46 mg/dL (7-18); BUN/Creat Ratio 64.8 RATIO (10-20); Calcium,Total 9.4 mg/dL (8.5-10.1); Chloride 100 mmol/L (98-107); Creatinine, Serum 0.71 mg/dL (0.70-1.30); EST Glomerular Filtration Rate 117 mL/min (>60); Est Glom Filt Rate - Afr Amer 141 mL/min (>60); Estimated Creatinine Clearance 76.52 ml/min; Glucose 142 mg/dL (74-106); Potassium 4.2 mmol/L (3.5-5.1); Sodium Level 135 mmol/L (136-145)
[2022-04-17 08:41] VITALS: O2SAT 94
[2022-04-17] MEDS: Gabapentin 300 MG Capsule GT ×3 (09:22→17:20)
[2022-04-17] MEDS: Aspirin 81 MG TAB.CHEW GT (09:22)
[2022-04-17] MEDS: Carvedilol 12.5 MG Tablet GT ×2 (09:23→17:16)
[2022-04-17] MEDS: Ferrous Sulfate 300 MG/5 ML UDC GT ×2 (09:23→17:16)
[2022-04-17] MEDS: Calcium Carb/Vitamin D 1 TABLET Tablet GT ×2 (09:24→17:16)
[2022-04-17] MEDS: Folic Acid 1 MG Tablet GT (09:24)
[2022-04-17] MEDS: Potassium Chloride Oral Soln 20 MEQ/15 ML UDC GT (09:24)
[2022-04-17] MEDS: Thiamine Hydrochloride 100 MG Tablet GT (09:25)
[2022-04-17] MEDS: Cyanocobalamin 500 MCG Tablet 1000 MCG GT ×2 (09:26→17:16)
[2022-04-17] MEDS: Chlorhexidine 480 ML 15 ML PO ×2 (09:27→20:42)
[2022-04-17] MEDS: Tuberculin,Purif.prot.deriv. 50 TU/ML Vial 0.1 ML ID (09:55)
[2022-04-17] MEDS: Acetaminophen 650 MG/20 ML UDC 975 MG GT ×2 (09:57→20:49)
--- NOTE | 2022-04-17 14:27 | NURSING ---
3cc residual noted via PEG. resting in bed, HOB elevated. call light in reach.
[2022-04-17 16:00] VITALS: BP 112/59; PULSE 77; RESP 18; TEMP 36.2; O2SAT 97
[2022-04-17] MEDS: Mirtazapine 15 MG Tablet GT (20:43)
--- NOTE | 2022-04-18 01:50 | NURSING ---
Pt calls reporting a headache and would like medication. Informed pt next scheduled dose is in approximately 1 hour. In moderate distress. Grabs right side of head and behind ear where pain is present. Removed pillow behind head. Placed a warm blanket behind head and a second to crown and down both sides of face. Pt was resting w/ eyes closed w/ in minutes of placing warm blankets. Will continue to monitor.
--- NOTE | 2022-04-18 02:20 | NURSING ---
Pt w/ small volume of urine output w/ each attempt to void, between 50-100 ml. Bladder scan completed post-void for 46ml. Will continue to monitor.
[2022-04-18] MEDS: Lansoprazole 15 MG Capsule.DR 30 MG GT (05:49)
[2022-04-18] MEDS: Sertraline 100 MG Tablet GT (05:49)
[2022-04-18] MEDS: Lisinopril 5 MG Tablet GT (05:49)
[2022-04-18] MEDS: Acetaminophen 650 MG/20 ML UDC 975 MG GT ×2 (05:50→21:29)
[2022-04-18] MEDS: Allopurinol 100 MG Tablet GT (05:50)
[2022-04-18] MEDS: Metoclopramide 5 MG TABLET GT ×2 (05:50→18:18)
[2022-04-18 05:55] VITALS: BP 121/67; PULSE 82
[2022-04-18] MEDS: oxyCODONE Soln 5 MG/0.25 ML PO.SYRINGE SL ×2 (05:55→18:52)
[2022-04-18] MEDS: Pivot 1.5 Cal 1,000 ML BOTTLE 275 ML GT ×5 (05:57→21:31)
[2022-04-18 07:18] VITALS: O2SAT 94
--- NOTE | 2022-04-18 07:48 | NURSING ---
DIRECTOR IMAGING reports pt completed an unassisted transfer. Attempted to obtain snacks as he expresses the desire to eat. Educated on the importance of maintaining NPO status at this time to prevent aspiration PNA. Also instructed to call for staff for any transfers to ensure safety and prevent complications s/p surgery. Much emotional support and active listening provided. Pt is concerned with the inability to eat at this time that he will have a similar disease trajectory like his late [id number] being placed in a SNF for 8 years and required total care. Reassurance provided and informed pt the goal on TCU is to work with therapy to gain strength. Call light w/ in reach. Bed alarm in use. Room camera in use.
[2022-04-18] MEDS: Potassium Chloride Oral Soln 20 MEQ/15 ML UDC GT (09:53)
[2022-04-18] MEDS: Cyanocobalamin 500 MCG Tablet 1000 MCG GT ×2 (09:54→18:18)
[2022-04-18] MEDS: Folic Acid 1 MG Tablet GT (09:54)
[2022-04-18] MEDS: Ferrous Sulfate 300 MG/5 ML UDC GT ×2 (09:54→18:20)
[2022-04-18] MEDS: Thiamine Hydrochloride 100 MG Tablet GT (09:54)
[2022-04-18] MEDS: Aspirin 81 MG TAB.CHEW GT (09:55)
[2022-04-18] MEDS: Carvedilol 12.5 MG Tablet GT ×2 (09:55→18:19)
[2022-04-18] MEDS: Gabapentin 300 MG Capsule GT ×3 (09:55→18:26)
[2022-04-18] MEDS: Calcium Carb/Vitamin D 1 TABLET Tablet GT ×2 (09:55→18:19)
[2022-04-18] MEDS: Chlorhexidine 480 ML 15 ML PO ×2 (09:56→20:42)
[2022-04-18 16:00] VITALS: BP 114/68; PULSE 81; RESP 14; TEMP 36.2
--- NOTE | 2022-04-18 16:31 | CASEMGMT ---
Social Work Met with patient to complete initial assessment. Pt admitted from and known to this worker. No changes to previous assessment. Confirmed code status. Completed MOLST form, communication to , placed in chart. Explained Medicare benefit. Encouraged to contact secondary insurance to ensure copay coverage. The goal is for pt to return home with . SW to continue to follow for DC planning. RIVAS SmithW
--- NOTE | 2022-04-18 16:38 | NURSING ---
1600; INSTRUCTED PT ON CARE OF PEG TUBE. ADMINISTERING TUBEFEED, WATER FLUSH, REMOVING DRESSING, WASHING AROUND PEG TUBE WITH SOAP AND WATER, RINSING WELL, APPLYING NEW DRESSING. PT WAS SHOWN AND SHE DID RETURN DEMO. ALL QUESTIONS ANSWERED.
[2022-04-18] MEDS: Menthol/Lanolin/Calamine/Znox 113 GM Tube 1 APPLIC TOPICAL (20:39)
[2022-04-18] MEDS: Mirtazapine 15 MG Tablet GT (21:30)
--- NOTE | 2022-04-18 21:37 | NURSING ---
Peg tube flushing well, residual 0ml, tolerates feeding well. HOB left elevated at 35 degrees.
[2022-04-19] MEDS: Metoclopramide 5 MG TABLET GT ×2 (05:44→17:56)
[2022-04-19] MEDS: Menthol/Lanolin/Calamine/Znox 113 GM Tube 1 APPLIC TOPICAL ×2 (05:50→17:57)
[2022-04-19 05:51] VITALS: BP 118/67; PULSE 86
[2022-04-19] MEDS: Sertraline 100 MG Tablet GT (05:53)
[2022-04-19] MEDS: Allopurinol 100 MG Tablet GT (05:53)
[2022-04-19] MEDS: Lisinopril 5 MG Tablet GT (05:53)
[2022-04-19] MEDS: Lansoprazole 15 MG Capsule.DR 30 MG GT (05:53)
[2022-04-19] MEDS: Pivot 1.5 Cal 1,000 ML BOTTLE 275 ML GT ×5 (05:56→20:26)
[2022-04-19] MEDS: Acetaminophen 650 MG/20 ML UDC 975 MG GT ×2 (05:59→20:15)
--- NOTE | 2022-04-19 06:04 | NURSING ---
Residual 5ml this am, pt tolerated feeding well, medicated with tylenol for c/o headache. HOB remains elevated at 35 degrees, call light in reach.
[2022-04-19] MEDS: Aspirin 81 MG TAB.CHEW GT (08:33)
[2022-04-19] MEDS: Carvedilol 12.5 MG Tablet GT ×2 (08:33→17:55)
[2022-04-19] MEDS: Gabapentin 300 MG Capsule GT ×3 (08:33→18:01)
[2022-04-19] MEDS: Folic Acid 1 MG Tablet GT (08:34)
[2022-04-19] MEDS: Calcium Carb/Vitamin D 1 TABLET Tablet GT ×2 (08:34→17:55)
[2022-04-19] MEDS: Potassium Chloride Oral Soln 20 MEQ/15 ML UDC GT (08:34)
[2022-04-19] MEDS: Ferrous Sulfate 300 MG/5 ML UDC GT ×2 (08:34→17:55)
[2022-04-19] MEDS: Thiamine Hydrochloride 100 MG Tablet GT (08:35)
[2022-04-19] MEDS: Cyanocobalamin 500 MCG Tablet 1000 MCG GT ×2 (08:35→17:56)
[2022-04-19] MEDS: Chlorhexidine 480 ML 15 ML PO ×2 (08:36→20:22)
[2022-04-19] MEDS: COVID-19 VACC, MRNA(PFIZER)/PF 30 MCG/0.3 ML SYRINGE IM (11:53)
[2022-04-19] MEDS: oxyCODONE Soln 5 MG/0.25 ML PO.SYRINGE SL ×2 (13:47→22:25)
--- NOTE | 2022-04-19 15:02 | NURSING ---
pt updated on a staff member testing positive for covid. will notify when she arrives for visit
[2022-04-19 15:23] VITALS: BP 129/62; PULSE 87; RESP 16; TEMP 36.4; O2SAT 97
[2022-04-19 20:25] VITALS: O2SAT 95
[2022-04-19] MEDS: Mirtazapine 15 MG Tablet GT (20:27)
[2022-04-20] MEDS: Metoclopramide 5 MG TABLET GT ×2 (04:40→17:31)
[2022-04-20 04:41] VITALS: BP 109/69; PULSE 84
[2022-04-20] MEDS: Lansoprazole 15 MG Capsule.DR 30 MG GT (04:42)
[2022-04-20] MEDS: Sertraline 100 MG Tablet GT (04:42)
[2022-04-20] MEDS: Lisinopril 5 MG Tablet GT (04:42)
[2022-04-20] MEDS: Allopurinol 100 MG Tablet GT (04:42)
[2022-04-20] MEDS: Menthol/Lanolin/Calamine/Znox 113 GM Tube 1 APPLIC TOPICAL ×2 (04:43→17:32)
[2022-04-20] MEDS: Pivot 1.5 Cal 1,000 ML BOTTLE 275 ML GT ×5 (04:46→21:41)
[2022-04-20 06:40] VITALS: O2SAT 95
[2022-04-20] MEDS: oxyCODONE Soln 5 MG/0.25 ML PO.SYRINGE SL ×2 (06:57→13:08)
[2022-04-20] MEDS: Acetaminophen 650 MG/20 ML UDC 975 MG GT ×2 (08:31→21:39)
[2022-04-20] MEDS: Aspirin 81 MG TAB.CHEW GT (08:33)
[2022-04-20] MEDS: Potassium Chloride Oral Soln 20 MEQ/15 ML UDC GT (08:33)
[2022-04-20] MEDS: Ferrous Sulfate 300 MG/5 ML UDC GT ×2 (08:34→17:30)
[2022-04-20] MEDS: Folic Acid 1 MG Tablet GT (08:34)
[2022-04-20] MEDS: Thiamine Hydrochloride 100 MG Tablet GT (08:34)
[2022-04-20] MEDS: Cyanocobalamin 500 MCG Tablet 1000 MCG GT ×2 (08:34→17:31)
[2022-04-20] MEDS: Carvedilol 12.5 MG Tablet GT ×2 (08:34→17:29)
[2022-04-20] MEDS: Calcium Carb/Vitamin D 1 TABLET Tablet GT ×2 (08:34→17:31)
[2022-04-20] MEDS: Chlorhexidine 480 ML 15 ML PO ×2 (08:35→21:47)
[2022-04-20] MEDS: Gabapentin 300 MG Capsule GT ×2 (08:53→13:51)
[2022-04-20 08:54] VITALS: BP 124/62; PULSE 89
--- NOTE | 2022-04-20 10:18 | CASEMGMT ---
Social Work IDT met with patient and for care plan meeting. Discussed patient's progress in PT/OT/ST/SN. Explained Medicare benefit. Encouraged to contact secondary insurance to ensure copay coverage. The goal is for pt to return home with with her assistance. Pt has 2 steps to enter and has new peg. Nursing is teaching on how to administer tube feeds. SW to continue to follow for DC planning. Arianna Islas, PRINCIPAL SOFTWARE ENGINEER ACADEMIC SUPPORT SPECIALIST
--- NOTE | 2022-04-20 11:00 | NURSING ---
Residual checked 0ml noted.
--- NOTE | 2022-04-20 14:00 | NURSING ---
Residual checked 30ml noted.
[2022-04-20 14:38] VITALS: BP 112/60; PULSE 82; RESP 14; O2SAT 98
--- NOTE | 2022-04-20 14:42 | PHA.CONS_ITS ---
TCU RX Drug Regimen Review Subjective: TCU Admission. 71 YOM hospitalized for multiple cervical fractures, underwent decompression and internal fixation cervical spine at . Admitted to , complicated by dysphagia requiring PEG tube placement due to right mandible fracture and osteonecrosis. Admitted to TCU with debility for strengthening and rehabilitation. Objective: Allergies No Known Allergies Allergy (Verified 03/08/22 16:32) Current Medications Generic Name Dose Route Start Last Admin Trade Name Freq PRN Reason Stop Dose Admin Acetaminophen 975 mg 04/16/22 14:43 04/20/22 08:31 Acetaminophen 650 Mg/20 Ml Udc GT 975 mg Q6H PRN PRN Administration PAIN 1-10 Albuterol Sulfate 2 puff 04/16/22 14:43 Albuterol Sulfate 8 Gm Inhaler (60 Puffs) INHALATION Q4H PRN shortness of breath or wheezing Allopurinol 100 mg 04/17/22 06:00 04/20/22 04:42 Allopurinol 100 Mg Tablet GT 100 mg DAILY [facility] Administration Aspirin 81 mg 04/17/22 08:00 04/20/22 08:33 Aspirin 81 Mg Tab.Chew [facility] Calamine/Phenol 1 applic 04/18/22 18:00 04/20/22 04:43 Menthol/Lanolin/Calamine/Znox 113 Gm Tube TOPICAL 1 applic BID [facility] Administration Protocol Calcium/Vitamin D 1 tablet 04/16/22 17:00 04/20/22 08:34 Calcium Carb/Vitamin D 1 Tablet Tablet GT 1 tablet BIDCM OLIM[place] Administration Carvedilol 12.5 mg 04/16/22 17:00 04/20/22 08:34 Carvedilol 12.5 Mg Tablet GT 12.5 mg BIDCM O[facility] Administration Chlorhexidine Gluconate 15 ml 04/16/22 20:00 04/20/22 08:35 Chlorhexidine 480 Ml PO 15 ml 0900,2000 O[facility] Administration Cyanocobalamin 1,000 mcg 04/16/22 17:00 04/20/22 08:34 Cyanocobalamin 500 Mcg Tablet GT 1,000 mcg BIDCM [facility] Administration Ferrous Sulfate 300 mg 04/16/22 17:00 04/20/22 08:34 Ferrous Sulfate 300 Mg/5 Ml Udc GT 300 mg BIDCM [facility] Administration Folic Acid 1 mg 04/17/22 08:00 04/20/22 08:34 Folic Acid 1 Mg Tablet GT 1 mg DAILYCM [facility] Administration Gabapentin 300 mg 04/16/22 17:45 04/20/22 13:51 Gabapentin 300 Mg Capsule GT 300 mg TIDCM [facility] Administration Heparin Sodium (Beef Lung) 50 unit 04/16/22 14:43 Heparin Lock 500 Unit/5 Ml In 10 Ml Syringe IV UD PRN Heparin Flush Lactose 275 ml 04/16/22 18:00 04/20/22 13:51 Pivot 1.5 Nahum 1,000 Ml Bottle GT 275 ml 5X/DAY [facility] Administration Lansoprazole 30 mg 04/17/22 06:00 04/20/22 04:42 Lansoprazole 15 Mg Capsule.Dr GT 30 mg DAILY [facility] Administration Lisinopril 5 mg 04/17/22 06:00 04/20/22 04:42 Lisinopril 5 Mg Tablet GT 5 mg DAILY [facility] Administration Magnesium Hydroxide 30 ml 04/16/22 14:43 Magnesium Hydroxide 30 Ml Udc GT .PRN X 1 PRN Constipation Metoclopramide HCl 5 mg 04/16/22 17:00 04/20/22 04:40 Metoclopramide 5 Mg Tablet GT 5 mg 0500,1700 [facility] Administration Mirtazapine 15 mg 04/16/22 22:00 04/19/22 20:27 Mirtazapine 15 Mg Tablet GT 15 mg QHS [facility] Administration Multi-Ingredient Cream 1 applic 04/17/22 22:00 04/19/22 20:21 Mineral Oil/Petrolatum,White Jar TOPICAL 1 each QHS [facility] Administration Protocol Oxycodone HCl 5 mg 04/16/22 14:43 04/20/22 13:08 Oxycodone Soln 5 Mg/0.25 Ml Po.Syringe SL 5 mg Q6H PRN Administration Pain Score 4-10 Potassium Chloride 20 meq 04/17/22 08:00 04/20/22 08:33 Potassium Chloride Oral Soln 20 Meq/15 Ml Udc GT 20 meq BREAKFAST [facility] Administration Saliva Substitute 15 ml 04/16/22 14:43 Saliva Substitute 237 Ml Bottle MUCOUS MEM 5X/DAY PRN Dry Mouth Sertraline HCl 100 mg 04/17/22 06:00 04/20/22 04:42 Sertraline 100 Mg Tablet GT 100 mg DAILY [facility] Administration Sodium Chloride 10 - 40 ml 04/16/22 15:07 0.9% Saline Lock 10 Ml Syringe IV UD PRN Port-a-Cath (VAD) Flush Sodium Chloride 10 - 40 ml 04/16/22 15:07 0.9 % Nacl (Sterile) Posiflush 10 Ml IV UD PRN Port access or dressing change Thiamine HCl 100 mg 04/17/22 08:00 04/20/22 08:34 Thiamine Hydrochloride 100 Mg Tablet GT 100 mg DAILYCM [facility] Administration Tuberculin PPD 0.1 ml 04/24/22 10:00 Tuberculin,Purif.Prot.Deriv. 50 Tu/Ml Vial ID 04/24/22 10:01 X1 ONE Problem List (Last Reviewed 04/16/22 @ 16:[address] 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 (Acute) C6 cervical fracture (Acute) C7 cervical fracture (Acute) C5 vertebral fracture (Acute) Nathaniel fracture (Acute) Multiple trauma (Acute) Left rib fracture (Acute) History of spinal fusion (Acute) Alcoholism (Chronic) Vital Signs Temp Pulse Resp BP Pulse Ox O2 Del Method 97.6 F L 82 14 112/60 98 Room Air 04/19/22 15:23 04/20/22 14:38 04/20/22 14:38 04/20/22 14:38 04/20/22 14:38 04/20/22 14:38 Oxygen Delivery Method Room Air Weight: 81.193 kg Body Mass Index (BMI) 24.0 Sodium 135 mmol/L (136-145) L 04/17/22 06:42 Potassium 4.2 mmol/L (3.5-5.1) 04/17/22 06:42 Chloride 100 mmol/L (98-107) 04/17/22 06:42 Carbon Dioxide 28.0 mmol/L (21.0-32.0) 04/17/22 06:42 Anion Gap 7 (5-15) 04/17/22 06:42 BUN 46 mg/dL (7-18) H 04/17/22 06:42 Creatinine 0.71 mg/dL (0.70-1.30) 04/17/22 06:42 Est GFR (MDRD) Af Amer 141 mL/min (>60) 04/17/22 06:42 Est GFR (MDRD) Non-Af 117 mL/min (>60) 04/17/22 06:42 BUN/Creatinine Ratio 64.8 RATIO (10-20) H 04/17/22 06:42 Glucose 142 mg/dL (74-106) H 04/17/22 06:42 Assessment/Plan: 1. Pain: acetaminophen 975mg QT Q6H PRN pain (1-10) and oxycodone solution 5mg S LQ6H PRN pain (4-10). Please continue to monitor for S/S of increased pain, PRN usage, rash, constipation and respiratory depression. Last documented bowel movement 04/19/22. Last acetaminophen dose 04/19/22 pain level 6/10 (has had 8 doses). Last oxycodone dose 04/20/22 pain level 6/10 (has had 10 doses). 2. Bowel: MOM 30ml GT x1 PRN constipation. Please continue to monitor for constipation and PRN usage. Last documented bowel movement 04/19/22. Has not received any doses. 3. Shortness of breath: albuterol MDI 2 puffs inhalation Q4H PRN SOB/wheezing. Please consider monitoring for S/S of shortness of breath, wheezing. No dose has been used yet.? 4. Gout: allopurinol 100mg GT daily. Please continue to monitor for S/S of gout, uric acid level (last 2.9 mg/dl)?and renal function. 5. CV prophylaxis: aspirin 81 mg GT daily. Please continue to monitor for S/S of bleeding and bruising, platelets (last 250,000) and hemoglobin (last 8.9g/dL).? 6. Calcium deficiency: calcium/D 1T GT BIDCM. Last vitamin D level is from 05/12/20. Please consider ordering a vitamin D level now and then annually if clinically appropriate. Thanks. Please continue to monitor calcium level (last 9.4mg/dL). 7. Hypertension: carvedilol 12.5mg GT BIDCM and lisinopril 5mg GT daily. Please continue to monitor heart rate (last 82), blood pressure (last 112/60), potassium (last 4.2mmol/L), sodium (last 135mmol/L), cough, and creatinine (last 0.71mg/dL). 8. B12 deficiency: cyanocobalamin 1000mcg GT BIDCM. Please continue to monitor vitamin B12 level (last 336 pg/mL 02/14/22). 9. Iron deficiency anemia: ferrous sulfate suspension 300 mg GT BIDCM. Please consider monitoring hemoglobin (last 8.9 g/dL), dark stools, and constipation 10. Alcohol abuse: thiamine 100 mg GT daily and folic Acid 1mg GT daily. Please continue to monitor folic acid (last 51.50 ng/mL 05/12/20).? 11. GERD: lansoprazole 30mg GT daily. Please continue to monitor S/S of GERD, magnesium level (last 2.1mg/dL) and diarrhea. 12. Hypokalemia: potassium chloride solution 20 meq GT breakfast. Please continue to monitor potassium level (last 4.2mmol/L). 13. Oral Hygiene: Peridex 15ml PO BID and Biotene 15ml MM 5x/day PRN dry mouth. Please continue to monitor oral hygiene and PRN usage. No Biotene used yet. 14. Gastroparesis: metoclopramide 5 mg GT BID. Based on resident?s CrCl of 107.8 mL/min no dose adjustment is needed. This medication is on the BEERs list for extrapyramidal side effects. Continue to monitor S/S of extrapyramidal effects and gastric motility. Assessment/Plan for indications treated with psychotropic medications: 1. Neuropathic pain: gabapentin 300 mg GT TID. Please continue to monitor for confusion and renal function. Not used for psychotropic effects. This medication is on the BEERs list for falls. Please continue to monitor. GDR not appropriate. 2. Appetite loss: mirtazapine 15 mg GT QHS. Please continue to monitor eating habits. Per apartment hotel manager resident has malnutrition, dysphagia, unintentional weight loss and NPO. Please see physician note regarding GDR. 4. Depression: sertraline 100mg GT DAILYCM. Please see physician note regarding GDR. This medication is one the BEERs list for fall. Please continue to monitor GDR not recommended. Medical chart and medication regimen reviewed. The following medication irregularities or issues were identified: *1. Calcium/D 1T GT BIDCM. Last vitamin D level is from 05/12/20. Please consider ordering a vitamin D level now and then annually if clinically appropriate. Thanks Date of Note:: 04/20/22
--- NOTE | 2022-04-20 15:01 | CHAPLAIN ---
Type of Pastoral Visit ___ Initial Visit _x__ Follow-up Visit ___ On-call Visit ___ General Patient Visit ___ Spiritual Assessment ___ Family Conference ___ Bereavement ___ Rapid Response ___ Code Blue ___ Other (describe below) Pastoral Care Referral From _x__ Patient _x__ Family ___ Nurse ___ Physician ___ Webbing Supervisor ___ Adjunct Communications Faculty Member ___ Other (describe below) Sacrament/Intervention _x__ Active listening ___ Anointing ___ Presybeterian ___ Bereavement ___ Communion _x__ Marline exploration ___ ___ Life review _x__ Prayer ___ Reconciliation ___ Sacrament of Sick _x__ Supportive presence ___ Wedding ___ Other (describe below) Pastoral Comments patient and spouse in room; spouse is being trained in home care for pt; both welcome visit and support; pt and spouse review his health and status; pt speaks of his own spiritual journey and how he is growing in marline in these past months of health crisis; pt has neighbors that are supportive spiritually; both pt and spouse are expressive about the importance to them of spiritual support and personal visits; prayer welcomed
--- NOTE | 2022-04-20 16:14 | NURSING ---
Demonstrated the administration of Medication and Tube feed to this Nurse. Answered any questions had.
[2022-04-20] MEDS: oxyCODONE Soln 5 MG/0.25 ML PO.SYRINGE 10 MG SL ×2 (17:29→21:36)
--- NOTE | 2022-04-20 17:30 | NURSING ---
Residual checked 0ml noted.
[2022-04-20] MEDS: Gabapentin 300 MG Capsule 600 MG GT (17:38)
[2022-04-20 17:48] VITALS: BP 121/66; PULSE 81
[2022-04-20] MEDS: Mirtazapine 15 MG Tablet GT (21:39)
[2022-04-21] MEDS: Metoclopramide 5 MG TABLET GT ×2 (04:45→18:33)
[2022-04-21] MEDS: Menthol/Lanolin/Calamine/Znox 113 GM Tube 1 APPLIC TOPICAL ×2 (04:45→22:36)
[2022-04-21] MEDS: Lisinopril 5 MG Tablet GT (04:46)
[2022-04-21] MEDS: Pivot 1.5 Cal 1,000 ML BOTTLE 275 ML GT ×5 (04:46→22:42)
[2022-04-21] MEDS: Allopurinol 100 MG Tablet GT (04:46)
[2022-04-21] MEDS: Lansoprazole 15 MG Capsule.DR 30 MG GT (04:46)
[2022-04-21] MEDS: Sertraline 100 MG Tablet GT (04:46)
[2022-04-21 07:10] VITALS: O2SAT 93
[2022-04-21] MEDS: Gabapentin 300 MG Capsule 600 MG GT ×3 (08:41→18:32)
[2022-04-21] MEDS: oxyCODONE Soln 5 MG/0.25 ML PO.SYRINGE 10 MG SL ×4 (08:41→23:17)
[2022-04-21] MEDS: Cyanocobalamin 500 MCG Tablet 1000 MCG GT ×2 (08:44→18:32)
[2022-04-21] MEDS: Aspirin 81 MG TAB.CHEW GT (08:44)
[2022-04-21] MEDS: Ferrous Sulfate 300 MG/5 ML UDC GT ×2 (08:44→18:32)
[2022-04-21] MEDS: Folic Acid 1 MG Tablet GT (08:44)
[2022-04-21] MEDS: Potassium Chloride Oral Soln 20 MEQ/15 ML UDC GT (08:44)
[2022-04-21] MEDS: Calcium Carb/Vitamin D 1 TABLET Tablet GT ×2 (08:44→18:32)
[2022-04-21] MEDS: Carvedilol 12.5 MG Tablet GT ×2 (08:44→18:32)
[2022-04-21] MEDS: Thiamine Hydrochloride 100 MG Tablet GT (08:44)
--- NOTE | 2022-04-21 09:00 | NURSING ---
Peg Tube Residual checked 0ml. HOB @ 45 degrees at this time. Call light within reach.
[2022-04-21] MEDS: Chlorhexidine 480 ML 15 ML PO ×2 (09:04→22:35)
[2022-04-21 09:08] VITALS: BP 119/64; PULSE 84
[2022-04-21 13:51] VITALS: BP 90/52; PULSE 84; RESP 15; TEMP 35.7; O2SAT 95
--- NOTE | 2022-04-21 14:00 | NURSING ---
Peg Tube Residual checked 127ml. Pt tolerating Tube feeds well. HOB @ 45 degrees at this time. Call light within reach.
--- NOTE | 2022-04-21 15:35 | RAD_ITS ---
INDICATION: Increasing pain EXAMINATION/TECHNIQUE: X-RAY - XR Skull Complete Min 4 Views COMPARISON: None. FINDINGS: CALVARIUM: No depressed skull fracture. No destructive or sclerotic abnormality observed. SOFT TISSUES: No soft tissue swelling or gas. SINUSES: No acute abnormality. RAD/Skull min 4 Views IMPRESSION: 1. Moderate to extensive dental amalgam noted. Extensive postoperative changes are present involving the cervical spine. 2. No fractures or acute destructive bony processes involving the cranial vault and visualized facial skeleton. Mandible is not completely included on current exam. Electronically Signed: Isaiah Regalado MD at 18:32 EDT ,
--- NOTE | 2022-04-21 15:35 | RAD_ITS ---
INDICATION: Increased Pain EXAMINATION/TECHNIQUE: X-RAY - XR Mandible Complete Min 4 Views COMPARISON: None. FINDINGS: SOFT TISSUES: No soft tissue swelling or gas. No radiopaque foreign body. BONES/TMJs: No fractures noted. There is a heterogeneous appearance of the mandible at the level of the symphysis, areas of erosion suspected however this may be projectional. Dental amalgam at multiple levels. No displaced fracture. DENTITION: Dentition is intact, dental amalgam is present. RAD/Mandible Min 4 Views IMPRESSION: 1. No evidence fracture malalignment. 2. Heterogeneous appearance of the trabecular pattern involving the mandibular symphysis and adjacent mandibular body. This may be projectional, however infiltrating sclerotic process is a consideration. Consider follow-up evaluation with CT imaging for further evaluation of the trabecular pattern. Electronically Signed: Isaiah Regalado MD at 18:26 EDT ,
--- NOTE | 2022-04-21 17:00 | RAD_ITS ---
INDICATION: Increased Pain EXAMINATION/TECHNIQUE: X-RAY - XR Spine Cervical 4 or 5 Views COMPARISON: None. FINDINGS: VERTEBRAE: Extensive postoperative changes noted. Posterior nargis fixation from C3 to T1. No evidence fracture or destructive bony process. No hardware failure noted. Diffuse osteophyte formation. Odontoid process and prevertebral soft tissue planes have normal appearance. DISCS: Disc spaces are maintained, marginal osteophytes are present. NECK SOFT TISSUES: No prevertebral soft tissue widening. LUNG APICES: Clear. RAD/Cerv Spine 4 or 5 Views IMPRESSION: 1. Extensive postoperative changes including pedicle screw posterior fixation extending from C3 to T1. No evidence of fracture or hardware failure. 2. Diffuse osteopenia, marginal osteophyte formation without evidence of fracture or acute destructive bony process.. Electronically Signed: Isaiah Regalado MD at 18:35 EDT ,
[2022-04-21] MEDS: MethylPREDNISolone DosePak 4 MG BOX PO ×2 (18:33→22:40)
[2022-04-21 18:55] VITALS: BP 108/59; PULSE 84
[2022-04-21 20:00] VITALS: RESP 16
--- NOTE | 2022-04-21 20:51 | NURSING ---
Patient requests siderails up x4 stating improves mobility/repositioning in bed, educated on side rail policy, patient requests all 4 siderails up, siderails up per request/pt. preference, encouraged to voice at any time when patient would like siderails x2, verbalizes understanding, denies further requests. Presents as A&Ox3. Call light in reach.
[2022-04-21] MEDS: Mirtazapine 15 MG Tablet GT (22:41)
--- NOTE | 2022-04-21 23:39 | NURSING ---
Presents in bed, HOB elevated, A&Ox3, forgetful at times. Peg tube patent, 0 residual, peg site without s/sx infection. PRN Oxyfast administered as ordered per pt. request for 6/10 pain to mouth/jaw/back. No distress observed or reported. Resps even and unlabored. Pleasant and talkative. Call light in reach.
[2022-04-22] MEDS: oxyCODONE Soln 5 MG/0.25 ML PO.SYRINGE 10 MG SL ×2 (04:55→13:24)
[2022-04-22] MEDS: Lansoprazole 15 MG Capsule.DR 30 MG GT (04:56)
[2022-04-22] MEDS: Menthol/Lanolin/Calamine/Znox 113 GM Tube 1 APPLIC TOPICAL ×2 (04:58→18:37)
[2022-04-22] MEDS: Metoclopramide 5 MG TABLET GT ×2 (04:59→18:18)
[2022-04-22] MEDS: Sertraline 100 MG Tablet GT (04:59)
[2022-04-22] MEDS: Pivot 1.5 Cal 1,000 ML BOTTLE 275 ML GT ×5 (05:00→22:59)
[2022-04-22] MEDS: Allopurinol 100 MG Tablet GT (05:00)
[2022-04-22] MEDS: Lisinopril 5 MG Tablet GT (05:00)
[2022-04-22 05:24] VITALS: BP 140/71; PULSE 72; RESP 16; O2SAT 97
[2022-04-22] MEDS: Carvedilol 12.5 MG Tablet GT ×2 (08:32→18:18)
[2022-04-22] MEDS: Calcium Carb/Vitamin D 1 TABLET Tablet GT ×2 (08:32→18:18)
[2022-04-22] MEDS: Aspirin 81 MG TAB.CHEW GT (08:32)
[2022-04-22] MEDS: Folic Acid 1 MG Tablet GT (08:33)
[2022-04-22] MEDS: MethylPREDNISolone DosePak 4 MG BOX PO ×4 (08:33→22:54)
[2022-04-22] MEDS: Thiamine Hydrochloride 100 MG Tablet GT (08:33)
[2022-04-22] MEDS: Ferrous Sulfate 300 MG/5 ML UDC GT ×2 (08:33→18:18)
[2022-04-22] MEDS: Potassium Chloride Oral Soln 20 MEQ/15 ML UDC GT (08:33)
[2022-04-22] MEDS: Cyanocobalamin 500 MCG Tablet 1000 MCG GT ×3 (08:35→18:18)
[2022-04-22] MEDS: Acetaminophen 650 MG/20 ML UDC 975 MG GT (08:38)
[2022-04-22] MEDS: Chlorhexidine 480 ML 15 ML PO ×2 (08:40→23:08)
--- NOTE | 2022-04-22 08:56 | MDS.RN ---
Pain interview for kiana 04/23/22
[2022-04-22] MEDS: Gabapentin 300 MG Capsule 600 MG GT ×3 (09:29→18:26)
[2022-04-22 16:00] VITALS: BP 129/71; PULSE 76; RESP 21; TEMP 35.6; O2SAT 96
--- NOTE | 2022-04-22 16:49 | CASEMGMT ---
Social Work BIMS () and PHQ-9 (12/29) completed for MDS assessment. Arianna Islas MSW INSTRUCTIONAL WRITER
[2022-04-22] MEDS: Mirtazapine 15 MG Tablet GT (22:54)
[2022-04-23] MEDS: Metoclopramide 5 MG TABLET GT ×2 (04:49→17:25)
[2022-04-23] MEDS: Lansoprazole 15 MG Capsule.DR 30 MG GT (04:49)
[2022-04-23] MEDS: Sertraline 100 MG Tablet GT (04:49)
[2022-04-23] MEDS: Allopurinol 100 MG Tablet GT (04:49)
[2022-04-23] MEDS: Lisinopril 5 MG Tablet GT (04:49)
[2022-04-23] MEDS: Pivot 1.5 Cal 1,000 ML BOTTLE 275 ML GT ×5 (04:50→21:17)
[2022-04-23] MEDS: Menthol/Lanolin/Calamine/Znox 113 GM Tube 1 APPLIC TOPICAL ×2 (04:50→17:46)
[2022-04-23 04:54] VITALS: BP 124/60; PULSE 69
[2022-04-23] MEDS: Gabapentin 300 MG Capsule 600 MG GT ×3 (08:57→17:25)
[2022-04-23] MEDS: Thiamine Hydrochloride 100 MG Tablet GT (08:58)
[2022-04-23] MEDS: Carvedilol 12.5 MG Tablet GT ×2 (08:59→17:25)
[2022-04-23] MEDS: Aspirin 81 MG TAB.CHEW GT (08:59)
[2022-04-23] MEDS: Calcium Carb/Vitamin D 1 TABLET Tablet GT ×2 (08:59→17:25)
[2022-04-23] MEDS: Chlorhexidine 480 ML 15 ML PO ×2 (08:59→21:22)
[2022-04-23] MEDS: Potassium Chloride Oral Soln 20 MEQ/15 ML UDC GT (08:59)
[2022-04-23] MEDS: Ferrous Sulfate 300 MG/5 ML UDC GT ×2 (08:59→17:25)
[2022-04-23] MEDS: Cyanocobalamin 500 MCG Tablet 1000 MCG GT ×2 (08:59→17:25)
[2022-04-23] MEDS: Folic Acid 1 MG Tablet GT (08:59)
[2022-04-23] MEDS: MethylPREDNISolone DosePak 4 MG BOX PO ×4 (08:59→21:17)
[2022-04-23] MEDS: Acetaminophen 650 MG/20 ML UDC 975 MG GT (09:00)
--- NOTE | 2022-04-23 15:35 | NURSING ---
Updated Pt and family on covid positive resident.
[2022-04-23 16:00] VITALS: BP 101/61; PULSE 82; RESP 14; TEMP 35.8; O2SAT 98
[2022-04-23 17:47] VITALS: BP 128/72; PULSE 72
[2022-04-23] MEDS: oxyCODONE Soln 5 MG/0.25 ML PO.SYRINGE 10 MG SL (20:06)
[2022-04-23 20:12] VITALS: PULSE 60; RESP 16; O2SAT 98
[2022-04-23] MEDS: Mirtazapine 15 MG Tablet GT (21:17)
[2022-04-24 05:33] LABS: Absolute Lymphocyte Count 1.93 X10^3/uL (0.83-4.51); Absolute Neutrophil Count 5.2 X10^3/uL (2.0-7.7); Basophil# 0.01 X10^3/uL; Basophil% 0.1 % (0-1); Eosinophil# 0.03 X10^3/uL; Eosinophils% 0.4 % (0-5); Hematocrit 28.9 % (40-54); Lymphocyte # 1.93 X10^3/ul (0.83-4.51); Lymphocyte % 24.8 % (19-41); Mean Corp Hgb Conc 31.1 g/dL (32-36); Mean Corpuscular Hgb 28.7 pg (27.0-32.0); Mean Platelet Vol. 9.3 fl (6.2-12.0); Monocyte# 0.48 X10^3/uL; Monocyte% 6.2 % (0-10); NRBC Flagged by Analyzer 0 % (0-5); Neutrophil # 5.21 X10^3/uL (2.7-7.7); Platelet Count 219 K/mm3 (150-450); RBC Distribution Width CV 15.3 % (11.6-14.6); RBC Distribution Width SD 50.7 fl (35.1-43.9); Red Blood Count 3.14 M/mm3 (4.6-6.2); White Blood Count 7.8 K/mm3 (4.4-11.0)
[2022-04-24 05:59] LABS: Anion Gap 6 (5-15); BUN 66 mg/dL (7-18); BUN/Creat Ratio 99.4 RATIO (10-20); Calcium,Total 8.9 mg/dL (8.5-10.1); Chloride 102 mmol/L (98-107); Creatinine, Serum 0.66 mg/dL (0.70-1.30); EST Glomerular Filtration Rate 126 mL/min (>60); Est Glom Filt Rate - Afr Amer 153 mL/min (>60); Estimated Creatinine Clearance 76.52 ml/min; Glucose 97 mg/dL (74-106); Potassium 4.4 mmol/L (3.5-5.1); Sodium Level 138 mmol/L (136-145)
[2022-04-24] MEDS: Pivot 1.5 Cal 1,000 ML BOTTLE 275 ML GT ×5 (06:10→22:57)
[2022-04-24] MEDS: Lansoprazole 15 MG Capsule.DR 30 MG GT (06:10)
[2022-04-24] MEDS: Metoclopramide 5 MG TABLET GT ×2 (06:12→17:22)
[2022-04-24] MEDS: Acetaminophen 650 MG/20 ML UDC 975 MG GT ×2 (06:15→22:53)
[2022-04-24] MEDS: Lisinopril 5 MG Tablet GT (06:15)
[2022-04-24] MEDS: Sertraline 100 MG Tablet GT (06:15)
[2022-04-24] MEDS: Allopurinol 100 MG Tablet GT (06:15)
[2022-04-24] MEDS: Menthol/Lanolin/Calamine/Znox 113 GM Tube 1 APPLIC TOPICAL ×2 (06:19→17:24)
--- NOTE | 2022-04-24 06:38 | NURSING ---
Patient observed awake frequently throughout the night, patient talkative stating anxiety at times related to current health status, upcoming appointments for anticipated jaw surgery, and unsure if and when will be able to return home due to current healthcare needs. Feelings validated, 1:1 provided, pt. expresses hopeful for healing regarding upcoming surgeries and return home with spouse and future travel with family. Patient pleasant, talkative, disorganized thinking observed at times. Highly motivated to get back home with my , but she thinks I can't do it yet. Patient gait is unsteady, requires verbal cues to complete tasks, often requiring encouragement to slow down, pace self, and request assist for help to promote safety. Poor safety awareness observed. Cervical collar when up per order. Ax1 with all care. Incontinent of urine at times, requires assist with eloisa-care/hygiene needs. Peg tube patent, zero residual this AM, peg site remains without s/sx infection. No distress observed or reported. Personal items within reach.Denies requests. Call light in reach. Written communication left for regarding patient difficulty sleeping and expressing anxiety at times regarding health status.
[2022-04-24] MEDS: Gabapentin 300 MG Capsule 600 MG GT ×3 (08:51→17:22)
[2022-04-24] MEDS: Chlorhexidine 480 ML 15 ML PO ×2 (08:51→22:41)
[2022-04-24] MEDS: Ferrous Sulfate 300 MG/5 ML UDC GT ×2 (08:52→17:23)
[2022-04-24] MEDS: MethylPREDNISolone DosePak 4 MG BOX PO ×3 (08:52→22:51)
[2022-04-24] MEDS: Potassium Chloride Oral Soln 20 MEQ/15 ML UDC GT (08:52)
[2022-04-24] MEDS: Folic Acid 1 MG Tablet GT (08:53)
[2022-04-24] MEDS: Cyanocobalamin 500 MCG Tablet 1000 MCG GT ×2 (08:53→17:22)
[2022-04-24] MEDS: Thiamine Hydrochloride 100 MG Tablet GT (08:53)
[2022-04-24] MEDS: Aspirin 81 MG TAB.CHEW GT (08:53)
[2022-04-24] MEDS: Carvedilol 12.5 MG Tablet GT ×2 (08:53→17:23)
[2022-04-24] MEDS: Calcium Carb/Vitamin D 1 TABLET Tablet GT ×2 (08:53→17:22)
[2022-04-24 09:21] VITALS: BP 138/71; PULSE 71
[2022-04-24] MEDS: oxyCODONE Soln 5 MG/0.25 ML PO.SYRINGE 10 MG SL ×2 (09:25→22:45)
[2022-04-24] MEDS: Tuberculin,Purif.prot.deriv. 50 TU/ML Vial 0.1 ML ID (13:20)
[2022-04-24 15:58] VITALS: BP 120/70; PULSE 76; RESP 16; TEMP 36.5; O2SAT 95
[2022-04-24] MEDS: BACITRACIN 15 GM Tube 1 APPLIC TOPICAL (17:23)
[2022-04-24] MEDS: Mirtazapine 15 MG Tablet GT (22:49)
[2022-04-24] MEDS: MELATONIN 10 MG TABLET PO (22:50)
[2022-04-25] MEDS: Lansoprazole 15 MG Capsule.DR 30 MG GT (05:53)
[2022-04-25] MEDS: Lisinopril 5 MG Tablet GT (05:53)
[2022-04-25] MEDS: Allopurinol 100 MG Tablet GT (05:54)
[2022-04-25] MEDS: Sertraline 100 MG Tablet GT (05:54)
[2022-04-25] MEDS: Metoclopramide 5 MG TABLET GT ×2 (05:54→18:32)
[2022-04-25] MEDS: Acetaminophen 650 MG/20 ML UDC 975 MG GT (05:56)
[2022-04-25] MEDS: oxyCODONE Soln 5 MG/0.25 ML PO.SYRINGE 10 MG SL ×3 (05:57→22:18)
[2022-04-25] MEDS: Pivot 1.5 Cal 1,000 ML BOTTLE 275 ML GT ×5 (05:58→22:29)
[2022-04-25] MEDS: BACITRACIN 15 GM Tube 1 APPLIC TOPICAL ×2 (06:10→18:32)
[2022-04-25] MEDS: Menthol/Lanolin/Calamine/Znox 113 GM Tube 1 APPLIC TOPICAL ×2 (06:13→18:33)
--- NOTE | 2022-04-25 08:41 | NURSING ---
Optical Instrument Assembler Note: Interview for MDS section F completed on 04/21/22 for MIKIE of 04/23/22. Section F entered and complete.
[2022-04-25] MEDS: MethylPREDNISolone DosePak 4 MG BOX PO ×2 (09:13→22:20)
[2022-04-25] MEDS: Potassium Chloride Oral Soln 20 MEQ/15 ML UDC GT (09:13)
[2022-04-25] MEDS: Ferrous Sulfate 300 MG/5 ML UDC GT ×2 (09:13→18:32)
[2022-04-25] MEDS: Cyanocobalamin 500 MCG Tablet 1000 MCG GT ×2 (09:14→18:32)
[2022-04-25] MEDS: Folic Acid 1 MG Tablet GT (09:14)
[2022-04-25] MEDS: Thiamine Hydrochloride 100 MG Tablet GT (09:14)
[2022-04-25] MEDS: Calcium Carb/Vitamin D 1 TABLET Tablet GT ×2 (09:14→18:32)
[2022-04-25] MEDS: Aspirin 81 MG TAB.CHEW GT (09:15)
[2022-04-25] MEDS: Chlorhexidine 480 ML 15 ML PO ×2 (09:15→22:14)
[2022-04-25] MEDS: Carvedilol 12.5 MG Tablet GT ×2 (09:16→18:32)
[2022-04-25 09:17] VITALS: BP 119/69; PULSE 71
[2022-04-25] MEDS: Gabapentin 300 MG Capsule 600 MG GT ×3 (09:25→18:32)
[2022-04-25 14:39] VITALS: BP 115/64; PULSE 60; RESP 21; TEMP 35.9; O2SAT 99
--- NOTE | 2022-04-25 14:54 | NURSING ---
35ml residual noted with breakfast tube feeding.
--- NOTE | 2022-04-25 14:55 | NURSING ---
0 residual noted with lunch tube feeding.
[2022-04-25 22:00] VITALS: PULSE 63; RESP 18; O2SAT 96
[2022-04-25] MEDS: MELATONIN 10 MG TABLET PO (22:21)
[2022-04-25] MEDS: Mirtazapine 15 MG Tablet GT (22:22)
[2022-04-26 06:00] VITALS: BP 120/68; PULSE 68; RESP 16
[2022-04-26] MEDS: Metoclopramide 5 MG TABLET GT ×2 (06:00→17:01)
[2022-04-26] MEDS: Lansoprazole 15 MG Capsule.DR 30 MG GT (06:02)
[2022-04-26] MEDS: Allopurinol 100 MG Tablet GT (06:02)
[2022-04-26] MEDS: BACITRACIN 15 GM Tube 1 APPLIC TOPICAL ×2 (06:03→17:02)
[2022-04-26] MEDS: Sertraline 100 MG Tablet GT (06:03)
[2022-04-26] MEDS: Menthol/Lanolin/Calamine/Znox 113 GM Tube 1 APPLIC TOPICAL ×2 (06:03→17:03)
[2022-04-26] MEDS: Lisinopril 5 MG Tablet GT (06:03)
[2022-04-26] MEDS: Pivot 1.5 Cal 1,000 ML BOTTLE 275 ML GT ×5 (06:04→21:05)
--- NOTE | 2022-04-26 06:49 | NURSING ---
Peg tube remains patent, zero residual this shift, bolus/flush maintained as ordered. Bacitracin to peg site per order, no s/sx infection. Pleasant and talkative. Patient reports sleeping better this HS, observed resting often with eyes closed. No c/o pain at this time. No distress observed or reported. Denies requests. Call light in reach.
[2022-04-26] MEDS: Gabapentin 300 MG Capsule 600 MG GT ×3 (07:42→17:01)
[2022-04-26] MEDS: Ferrous Sulfate 300 MG/5 ML UDC GT ×2 (07:44→17:01)
[2022-04-26] MEDS: Folic Acid 1 MG Tablet GT (07:44)
[2022-04-26] MEDS: Aspirin 81 MG TAB.CHEW GT (07:44)
[2022-04-26] MEDS: MethylPREDNISolone DosePak 4 MG BOX PO (07:45)
[2022-04-26] MEDS: Cyanocobalamin 500 MCG Tablet 1000 MCG GT ×2 (07:45→17:01)
[2022-04-26] MEDS: Potassium Chloride Oral Soln 20 MEQ/15 ML UDC GT (07:45)
[2022-04-26] MEDS: Calcium Carb/Vitamin D 1 TABLET Tablet GT ×2 (07:45→17:01)
[2022-04-26] MEDS: Thiamine Hydrochloride 100 MG Tablet GT (07:45)
[2022-04-26] MEDS: Carvedilol 12.5 MG Tablet GT ×2 (07:46→17:00)
[2022-04-26] MEDS: Chlorhexidine 480 ML 15 ML PO ×2 (09:36→21:02)
[2022-04-26 13:54] VITALS: BP 103/56; PULSE 71; RESP 17; TEMP 35.8; O2SAT 98
--- NOTE | 2022-04-26 14:12 | NURSING ---
and patient notified of staff member testing positive.
--- NOTE | 2022-04-26 14:21 | WOUNDNOTE ---
wound photo: back
--- NOTE | 2022-04-26 18:31 | NURSING ---
Peg tube patent and flushes well. No risidual noted on any bolus or medication administration.
[2022-04-26] MEDS: Mirtazapine 15 MG Tablet GT (21:05)
[2022-04-26] MEDS: MELATONIN 10 MG TABLET PO (21:05)
[2022-04-26] MEDS: oxyCODONE Soln 5 MG/0.25 ML PO.SYRINGE 10 MG SL (23:25)
[2022-04-27] MEDS: oxyCODONE Soln 5 MG/0.25 ML PO.SYRINGE 10 MG SL ×2 (03:36→08:46)
[2022-04-27] MEDS: BACITRACIN 15 GM Tube 1 APPLIC TOPICAL ×2 (06:03→21:47)
[2022-04-27] MEDS: Menthol/Lanolin/Calamine/Znox 113 GM Tube 1 APPLIC TOPICAL ×2 (06:04→18:10)
[2022-04-27] MEDS: Allopurinol 100 MG Tablet GT (06:04)
[2022-04-27] MEDS: Lisinopril 5 MG Tablet GT (06:04)
[2022-04-27] MEDS: Lansoprazole 15 MG Capsule.DR 30 MG GT (06:04)
[2022-04-27] MEDS: Sertraline 100 MG Tablet GT (06:04)
[2022-04-27] MEDS: Metoclopramide 5 MG TABLET GT ×2 (06:04→17:44)
[2022-04-27] MEDS: Pivot 1.5 Cal 1,000 ML BOTTLE 275 ML GT ×4 (06:05→21:52)
[2022-04-27] MEDS: Gabapentin 300 MG Capsule 600 MG GT ×3 (08:44→17:44)
[2022-04-27] MEDS: Cyanocobalamin 500 MCG Tablet 1000 MCG GT ×2 (08:51→17:44)
[2022-04-27] MEDS: Ferrous Sulfate 300 MG/5 ML UDC GT ×2 (08:51→17:44)
[2022-04-27] MEDS: Potassium Chloride Oral Soln 20 MEQ/15 ML UDC GT (08:51)
[2022-04-27] MEDS: Aspirin 81 MG TAB.CHEW GT (08:51)
[2022-04-27] MEDS: Chlorhexidine 480 ML 15 ML PO ×2 (08:51→21:43)
[2022-04-27] MEDS: Folic Acid 1 MG Tablet GT (08:51)
[2022-04-27] MEDS: Carvedilol 12.5 MG Tablet GT (08:51)
[2022-04-27] MEDS: Thiamine Hydrochloride 100 MG Tablet GT (08:51)
[2022-04-27] MEDS: Calcium Carb/Vitamin D 1 TABLET Tablet GT ×2 (08:51→17:44)
[2022-04-27 09:29] VITALS: BP 138/60; PULSE 84
[2022-04-27] MEDS: Acetaminophen 650 MG/20 ML UDC 975 MG GT ×2 (10:43→17:44)
--- NOTE | 2022-04-27 12:45 | NURSING ---
Pt left unit with to go to Dr. Jose.
--- NOTE | 2022-04-27 13:22 | NURSING ---
Lisinopril 5mg Discontinued per Sayra Romeo NP at appt on 04/26/22.
[2022-04-27 16:00] VITALS: TEMP 36.4
[2022-04-27 17:32] VITALS: BP 101/54; PULSE 76; RESP 18; TEMP 36.2; O2SAT 93
--- NOTE | 2022-04-27 19:31 | NURSING ---
Pt and family updated on covid positive resident.
--- NOTE | 2022-04-27 19:35 | NURSING ---
Family notified of patient testing positive for Covid.
[2022-04-27 21:45] VITALS: PULSE 54; RESP 16; O2SAT 93
[2022-04-27] MEDS: MELATONIN 10 MG TABLET PO (21:47)
[2022-04-27] MEDS: Mirtazapine 15 MG Tablet GT (21:48)
[2022-04-28] MEDS: oxyCODONE Soln 5 MG/0.25 ML PO.SYRINGE 10 MG SL ×3 (05:02→21:45)
[2022-04-28] MEDS: Lansoprazole 15 MG Capsule.DR 30 MG GT (05:04)
[2022-04-28] MEDS: Metoclopramide 5 MG TABLET GT ×2 (05:04→21:48)
[2022-04-28] MEDS: Allopurinol 100 MG Tablet GT (05:05)
[2022-04-28] MEDS: Sertraline 100 MG Tablet GT (05:05)
[2022-04-28] MEDS: Pivot 1.5 Cal 1,000 ML BOTTLE 275 ML GT ×4 (05:05→21:57)
[2022-04-28] MEDS: BACITRACIN 15 GM Tube 1 APPLIC TOPICAL ×2 (05:05→21:49)
[2022-04-28] MEDS: Menthol/Lanolin/Calamine/Znox 113 GM Tube 1 APPLIC TOPICAL ×2 (05:06→21:49)
[2022-04-28] MEDS: Baclofen 10 MG Tablet PO (06:38)
[2022-04-28] MEDS: Gabapentin 300 MG Capsule 600 MG GT ×3 (08:53→21:56)
[2022-04-28] MEDS: Chlorhexidine 480 ML 15 ML PO ×2 (08:55→21:51)
[2022-04-28] MEDS: Cyanocobalamin 500 MCG Tablet 1000 MCG GT ×2 (08:55→21:48)
[2022-04-28] MEDS: Carvedilol 12.5 MG Tablet GT ×2 (08:55→21:47)
[2022-04-28] MEDS: Thiamine Hydrochloride 100 MG Tablet GT (08:55)
[2022-04-28] MEDS: Folic Acid 1 MG Tablet GT (08:55)
[2022-04-28] MEDS: Calcium Carb/Vitamin D 1 TABLET Tablet GT ×2 (08:56→21:48)
[2022-04-28] MEDS: Ferrous Sulfate 300 MG/5 ML UDC GT ×2 (08:56→21:48)
[2022-04-28] MEDS: Aspirin 81 MG TAB.CHEW GT (08:56)
[2022-04-28] MEDS: Potassium Chloride Oral Soln 20 MEQ/15 ML UDC GT (08:56)
[2022-04-28] MEDS: Acetaminophen 650 MG/20 ML UDC 975 MG GT (09:17)
[2022-04-28 09:24] VITALS: BP 132/71; PULSE 84
--- NOTE | 2022-04-28 11:47 | MDS.RN ---
Information for the mds was obtained from review of the clinical record, interview of resident, staff, and direct observation of resident's care.
[2022-04-28 15:02] VITALS: BP 103/59; PULSE 76; RESP 14; O2SAT 96
[2022-04-28 21:39] VITALS: BP 115/62; PULSE 80; RESP 16; TEMP 36.6; O2SAT 96
[2022-04-28] MEDS: MELATONIN 10 MG TABLET PO (21:47)
[2022-04-28] MEDS: Mirtazapine 15 MG Tablet GT (21:58)
[2022-04-29] MEDS: Menthol/Lanolin/Calamine/Znox 113 GM Tube 1 APPLIC TOPICAL ×2 (04:40→16:53)
[2022-04-29] MEDS: Lansoprazole 15 MG Capsule.DR 30 MG GT (04:55)
[2022-04-29] MEDS: BACITRACIN 15 GM Tube 1 APPLIC TOPICAL ×2 (04:55→16:53)
[2022-04-29] MEDS: Pivot 1.5 Cal 1,000 ML BOTTLE 275 ML GT ×5 (04:55→21:19)
[2022-04-29] MEDS: Sertraline 100 MG Tablet GT (04:56)
[2022-04-29] MEDS: Metoclopramide 5 MG TABLET GT ×2 (04:56→16:53)
[2022-04-29] MEDS: Allopurinol 100 MG Tablet GT (04:56)
[2022-04-29] MEDS: Folic Acid 1 MG Tablet GT (08:37)
[2022-04-29] MEDS: Aspirin 81 MG TAB.CHEW GT (08:37)
[2022-04-29] MEDS: Gabapentin 300 MG Capsule 600 MG GT ×3 (08:37→16:53)
[2022-04-29] MEDS: Carvedilol 12.5 MG Tablet GT ×2 (08:37→16:53)
[2022-04-29] MEDS: Ferrous Sulfate 300 MG/5 ML UDC GT ×2 (08:37→16:52)
[2022-04-29] MEDS: Calcium Carb/Vitamin D 1 TABLET Tablet GT ×2 (08:38→16:53)
[2022-04-29] MEDS: Chlorhexidine 480 ML 15 ML PO ×2 (08:38→21:05)
[2022-04-29] MEDS: Thiamine Hydrochloride 100 MG Tablet GT (08:38)
[2022-04-29] MEDS: Potassium Chloride Oral Soln 20 MEQ/15 ML UDC GT (08:38)
[2022-04-29] MEDS: Cyanocobalamin 500 MCG Tablet 1000 MCG GT ×2 (08:38→16:53)
[2022-04-29 08:44] VITALS: BP 108/64; PULSE 80
--- NOTE | 2022-04-29 13:30 | NURSING ---
20cc residual after lunch, ate mashed potatoes & chili.
[2022-04-29 15:14] VITALS: BP 125/55; PULSE 77; RESP 19; TEMP 36.6; O2SAT 99
--- NOTE | 2022-04-29 17:06 | NURSING ---
0 residual this evening. pt tolerating well. oral swab given, pt swabbing mouth.
[2022-04-29] MEDS: oxyCODONE Soln 5 MG/0.25 ML PO.SYRINGE 10 MG SL (20:14)
[2022-04-29] MEDS: Baclofen 10 MG Tablet PO (21:07)
[2022-04-29] MEDS: Mirtazapine 15 MG Tablet GT (21:09)
[2022-04-29] MEDS: MELATONIN 10 MG TABLET PO (21:11)
[2022-04-29] MEDS: Acetaminophen 650 MG/20 ML UDC 975 MG GT (21:21)
[2022-04-29 22:00] VITALS: PULSE 96; RESP 18; O2SAT 96
[2022-04-30] MEDS: oxyCODONE Soln 5 MG/0.25 ML PO.SYRINGE 10 MG SL ×2 (01:56→20:05)
[2022-04-30] MEDS: Acetaminophen 650 MG/20 ML UDC 975 MG GT ×3 (06:13→22:45)
[2022-04-30] MEDS: BACITRACIN 15 GM Tube 1 APPLIC TOPICAL ×2 (06:14→18:06)
[2022-04-30] MEDS: Lansoprazole 15 MG Capsule.DR 30 MG GT (06:15)
[2022-04-30] MEDS: Metoclopramide 5 MG TABLET GT ×2 (06:15→18:05)
[2022-04-30] MEDS: Allopurinol 100 MG Tablet GT (06:15)
[2022-04-30] MEDS: Sertraline 100 MG Tablet GT (06:15)
[2022-04-30] MEDS: Menthol/Lanolin/Calamine/Znox 113 GM Tube 1 APPLIC TOPICAL ×2 (06:43→18:05)
[2022-04-30] MEDS: Pivot 1.5 Cal 1,000 ML BOTTLE 275 ML GT ×5 (07:53→22:51)
[2022-04-30] MEDS: Potassium Chloride Oral Soln 20 MEQ/15 ML UDC GT (07:53)
[2022-04-30] MEDS: Calcium Carb/Vitamin D 1 TABLET Tablet GT ×2 (07:53→18:05)
[2022-04-30] MEDS: Ferrous Sulfate 300 MG/5 ML UDC GT ×2 (07:53→18:05)
[2022-04-30] MEDS: Carvedilol 12.5 MG Tablet GT ×2 (07:53→18:05)
[2022-04-30] MEDS: Gabapentin 300 MG Capsule 600 MG GT ×3 (07:53→18:05)
[2022-04-30] MEDS: Folic Acid 1 MG Tablet GT (07:54)
[2022-04-30] MEDS: Thiamine Hydrochloride 100 MG Tablet GT (07:54)
[2022-04-30] MEDS: Chlorhexidine 480 ML 15 ML PO ×2 (07:54→22:44)
[2022-04-30] MEDS: Cyanocobalamin 500 MCG Tablet 1000 MCG GT ×2 (07:54→18:05)
[2022-04-30] MEDS: Aspirin 81 MG TAB.CHEW GT (07:54)
[2022-04-30 10:00] VITALS: RESP 18
--- NOTE | 2022-04-30 14:00 | NURSING ---
35 residual before tube feeding
[2022-04-30 14:50] VITALS: BP 114/67; PULSE 76; RESP 14; O2SAT 97
[2022-04-30] MEDS: Baclofen 10 MG Tablet PO (22:42)
[2022-04-30] MEDS: Mirtazapine 15 MG Tablet GT (22:43)
[2022-04-30] MEDS: MELATONIN 10 MG TABLET PO (22:44)
[2022-05-01] MEDS: oxyCODONE Soln 5 MG/0.25 ML PO.SYRINGE 10 MG SL ×4 (00:45→19:46)
[2022-05-01 06:00] VITALS: BP 113/70; PULSE 75
[2022-05-01] MEDS: Menthol/Lanolin/Calamine/Znox 113 GM Tube 1 APPLIC TOPICAL ×2 (06:09→17:41)
[2022-05-01] MEDS: Lansoprazole 15 MG Capsule.DR 30 MG GT (06:10)
[2022-05-01] MEDS: Metoclopramide 5 MG TABLET GT ×2 (06:13→17:40)
[2022-05-01] MEDS: BACITRACIN 15 GM Tube 1 APPLIC TOPICAL ×2 (06:13→17:41)
[2022-05-01] MEDS: Allopurinol 100 MG Tablet GT (06:13)
[2022-05-01] MEDS: Sertraline 100 MG Tablet GT (06:13)
[2022-05-01] MEDS: Acetaminophen 650 MG/20 ML UDC 975 MG GT ×2 (06:28→22:53)
[2022-05-01] MEDS: Pivot 1.5 Cal 1,000 ML BOTTLE 275 ML GT ×5 (06:33→22:50)
[2022-05-01 06:43] LABS: Absolute Lymphocyte Count 1.71 X10^3/uL (0.83-4.51); Absolute Neutrophil Count 3.3 X10^3/uL (2.0-7.7); Basophil# 0.01 X10^3/uL; Basophil% 0.2 % (0-1); Eosinophil# 0.18 X10^3/uL; Eosinophils% 3.1 % (0-5); Hemoglobin 8.7 g/dL (13.0-16.5); Lymphocyte # 1.71 X10^3/ul (0.83-4.51); Lymphocyte % 29.9 % (19-41); Mean Corp Hgb Conc 31.1 g/dL (32-36); Mean Corpuscular Hgb 29.2 pg (27.0-32.0); Mean Platelet Vol. 9.5 fl (6.2-12.0); Monocyte% 8.7 % (0-10); NRBC Flagged by Analyzer 0 % (0-5); Neutrophil # 3.29 X10^3/uL (2.7-7.7); Neutrophil % 57.6 % (47-70); Platelet Count 168 K/mm3 (150-450); RBC Distribution Width CV 16.5 % (11.6-14.6); RBC Distribution Width SD 56.1 fl (35.1-43.9); Red Blood Count 2.98 M/mm3 (4.6-6.2); White Blood Count 5.7 K/mm3 (4.4-11.0)
[2022-05-01 07:02] LABS: Anion Gap 7 (5-15); BUN 53 mg/dL (7-18); Calcium,Total 8.8 mg/dL (8.5-10.1); Chloride 102 mmol/L (98-107); Creatinine, Serum 0.62 mg/dL (0.70-1.30); EST Glomerular Filtration Rate 138 mL/min (>60); Est Glom Filt Rate - Afr Amer 166 mL/min (>60); Estimated Creatinine Clearance 76.52 ml/min; Glucose 96 mg/dL (74-106); Potassium 3.9 mmol/L (3.5-5.1); Sodium Level 138 mmol/L (136-145)
[2022-05-01] MEDS: Gabapentin 300 MG Capsule 600 MG GT ×3 (09:09→17:40)
[2022-05-01] MEDS: Potassium Chloride Oral Soln 20 MEQ/15 ML UDC GT (09:09)
[2022-05-01] MEDS: Carvedilol 12.5 MG Tablet GT ×2 (09:09→17:41)
[2022-05-01] MEDS: Ferrous Sulfate 300 MG/5 ML UDC GT ×2 (09:09→17:40)
[2022-05-01] MEDS: Thiamine Hydrochloride 100 MG Tablet GT (09:09)
[2022-05-01] MEDS: Cyanocobalamin 500 MCG Tablet 1000 MCG GT ×2 (09:10→17:40)
[2022-05-01] MEDS: Calcium Carb/Vitamin D 1 TABLET Tablet GT ×2 (09:10→17:40)
[2022-05-01] MEDS: Folic Acid 1 MG Tablet GT (09:10)
[2022-05-01] MEDS: Chlorhexidine 480 ML 15 ML PO ×2 (09:10→22:48)
[2022-05-01] MEDS: Aspirin 81 MG TAB.CHEW GT (09:10)
[2022-05-01 14:58] VITALS: BP 115/69; PULSE 71; RESP 16; TEMP 36.4; O2SAT 97
[2022-05-01 17:45] VITALS: BP 122/71; PULSE 78
[2022-05-01] MEDS: Mirtazapine 15 MG Tablet GT (22:51)
[2022-05-01] MEDS: MELATONIN 10 MG TABLET PO (22:52)
[2022-05-02 06:15] VITALS: BP 125/65; PULSE 84
[2022-05-02] MEDS: Metoclopramide 5 MG TABLET GT ×2 (06:17→18:17)
[2022-05-02] MEDS: Sertraline 100 MG Tablet GT (06:17)
[2022-05-02] MEDS: Allopurinol 100 MG Tablet GT (06:17)
[2022-05-02] MEDS: Lansoprazole 15 MG Capsule.DR 30 MG GT (06:17)
[2022-05-02] MEDS: BACITRACIN 15 GM Tube 1 APPLIC TOPICAL ×2 (06:20→18:18)
[2022-05-02] MEDS: Acetaminophen 650 MG/20 ML UDC 975 MG GT ×2 (06:21→13:44)
[2022-05-02] MEDS: Pivot 1.5 Cal 1,000 ML BOTTLE 275 ML GT ×5 (06:22→21:26)
[2022-05-02] MEDS: Menthol/Lanolin/Calamine/Znox 113 GM Tube 1 APPLIC TOPICAL ×2 (06:32→18:18)
[2022-05-02] MEDS: oxyCODONE Soln 5 MG/0.25 ML PO.SYRINGE 10 MG SL ×2 (06:35→21:41)
[2022-05-02 08:30] VITALS: BP 113/73; PULSE 78
[2022-05-02] MEDS: Thiamine Hydrochloride 100 MG Tablet GT (08:55)
[2022-05-02] MEDS: Calcium Carb/Vitamin D 1 TABLET Tablet GT ×2 (08:55→18:17)
[2022-05-02] MEDS: Carvedilol 12.5 MG Tablet GT ×2 (08:55→18:16)
[2022-05-02] MEDS: Folic Acid 1 MG Tablet GT (08:55)
[2022-05-02] MEDS: Cyanocobalamin 500 MCG Tablet 1000 MCG GT ×2 (08:55→18:16)
[2022-05-02] MEDS: Potassium Chloride Oral Soln 20 MEQ/15 ML UDC GT (08:55)
[2022-05-02] MEDS: Ferrous Sulfate 300 MG/5 ML UDC GT ×2 (08:55→18:17)
[2022-05-02] MEDS: Chlorhexidine 480 ML 15 ML PO ×2 (08:55→21:27)
[2022-05-02] MEDS: Aspirin 81 MG TAB.CHEW GT (08:55)
[2022-05-02] MEDS: Gabapentin 300 MG Capsule 600 MG GT ×3 (08:58→18:17)
[2022-05-02 10:30] VITALS: PULSE 78; O2SAT 99
--- NOTE | 2022-05-02 11:50 | WOUNDNOTE ---
wound photo: back
--- NOTE | 2022-05-02 13:50 | NURSING ---
Pt off unit with went to F/U appt.
--- NOTE | 2022-05-02 16:53 | NURSING ---
Updated resident and family of positive covid resident and employee.
[2022-05-02 18:38] VITALS: BP 121/65; PULSE 85; RESP 18; TEMP 36.4; O2SAT 98
--- NOTE | 2022-05-02 18:41 | NURSING ---
Pt returned from appt with Mary Ann Bajwa CNP. N.O. for Cephalexin 500mg QID x10 days d/t incision appears to be infected. Continue to use soft Cervical collar for C1 Fracture. No monkey Bars for movement in the bed. Needs to be assisted up in bed. The monkey bars can interfere with hardware healing/fusion in cervical and thoracolumbar spine and can interfere with wound healing. Pt is to have Xrays and CT prior to appt with Dr. Lugo awaiting for appt to be scheduled d/t Dr. Lugo being on vacation.
[2022-05-02] MEDS: Mirtazapine 15 MG Tablet GT (21:26)
[2022-05-02] MEDS: MELATONIN 10 MG TABLET PO (21:26)
[2022-05-02] MEDS: Cephalexin Suspension 250 MG/5 ML PO.SYRINGE 500 MG GT (21:31)
[2022-05-03] MEDS: Menthol/Lanolin/Calamine/Znox 113 GM Tube 1 APPLIC TOPICAL ×2 (05:04→18:33)
[2022-05-03] MEDS: Lansoprazole 15 MG Capsule.DR 30 MG GT (05:04)
[2022-05-03] MEDS: Pivot 1.5 Cal 1,000 ML BOTTLE 275 ML GT ×5 (05:04→22:07)
[2022-05-03] MEDS: Metoclopramide 5 MG TABLET GT ×2 (05:04→18:30)
[2022-05-03] MEDS: Allopurinol 100 MG Tablet GT (05:04)
[2022-05-03] MEDS: Sertraline 100 MG Tablet GT (05:04)
[2022-05-03] MEDS: BACITRACIN 15 GM Tube 1 APPLIC TOPICAL ×2 (05:05→18:32)
[2022-05-03] MEDS: Cephalexin Suspension 250 MG/5 ML PO.SYRINGE 500 MG GT ×3 (05:07→22:07)
[2022-05-03] MEDS: Gabapentin 300 MG Capsule 600 MG GT ×3 (08:39→18:32)
[2022-05-03] MEDS: Aspirin 81 MG TAB.CHEW GT (08:40)
[2022-05-03] MEDS: Calcium Carb/Vitamin D 1 TABLET Tablet GT ×2 (08:40→18:30)
[2022-05-03] MEDS: Thiamine Hydrochloride 100 MG Tablet GT (08:40)
[2022-05-03] MEDS: Folic Acid 1 MG Tablet GT (08:40)
[2022-05-03] MEDS: Carvedilol 12.5 MG Tablet GT ×2 (08:40→18:29)
[2022-05-03] MEDS: Ferrous Sulfate 300 MG/5 ML UDC GT ×2 (08:40→18:30)
[2022-05-03] MEDS: Potassium Chloride Oral Soln 20 MEQ/15 ML UDC GT (08:40)
[2022-05-03] MEDS: Cyanocobalamin 500 MCG Tablet 1000 MCG GT ×2 (08:40→18:30)
[2022-05-03] MEDS: Chlorhexidine 480 ML 15 ML PO ×2 (08:41→22:10)
[2022-05-03] MEDS: oxyCODONE Soln 5 MG/0.25 ML PO.SYRINGE 10 MG SL ×2 (08:44→15:59)
[2022-05-03 08:48] VITALS: BP 127/73; PULSE 85
--- NOTE | 2022-05-03 10:00 | MDS.RN ---
HEARING AIDS PLACED IN BOTH EARS, PT OFF FLOOR TO APPT, ON WAY. CALLED HER PER PT REQUEST. SHE FORGOT ABOUT IT. STAFF TAKING IN WC TO PULMONARY APPT WITH MANI CHRISTOPHER.
--- NOTE | 2022-05-03 11:14 | NURSING ---
pt back from appt, orders to not wear PAP therapy d/t loose teeth being present. Use oxygen with sleep, sat 89-92%, start 2 LM. F/U Dr Mendes in 6 months.
--- NOTE | 2022-05-03 12:16 | NURSING ---
per report to Dr Vernon today, pt BPs running low. reviewed and none since 04/21. lisinopril was dc'd at some point. dr aguilar updated by dr vernon, new order for midodrine. aware.
[2022-05-03] MEDS: Midodrine HCl 5 MG Tablet PO ×2 (14:08→22:12)
[2022-05-03 14:09] VITALS: BP 94/49; PULSE 75; RESP 16; TEMP 36.4; O2SAT 97
--- NOTE | 2022-05-03 15:34 | NURSING ---
updated on positive covid staff member. to bring in pt fundraising sale representative to prevent pt from twisting and bending.
--- NOTE | 2022-05-03 16:32 | NURSING ---
0 residual at 10am & 2pm today.
--- NOTE | 2022-05-03 16:54 | RAD_ITS ---
STUDY: X-RAY - LUMBAR SPINE REASON FOR EXAM: Male, 71 years old. Follow-up surgery. TECHNIQUE: 3 view(s) of the lumbar spine were obtained. COMPARISON: None FINDINGS: There is straightening of the normal lumbar lordosis. There is now a surgical fusion from C6 L3 upward into the thoracic spine. There is a compression deformity with anterior wedging T11. Remainder the vertebral axial heights are maintained. There is a normal alignment of the vertebrae. There is multilevel endplate spondylosis of the lumbar vertebrae. There is multi-level degenerative disc disease with multi-level disc space narrowing. There is no evidence of acute fracture or loss of vertebral axial height. The soft tissue structures are unremarkable. RAD/Lumbar Spine 2 or 3 Views IMPRESSION: 1. Posterior fusion of the thoracolumbar spine with maintenance of normal alignment. 2. Degenerative changes of the lumbar spine. 3. Anterior wedging at T11. This is age indeterminate. Electronically Signed: Smith Sterling DO at 19:39 EDT ,
--- NOTE | 2022-05-03 17:04 | RAD_ITS ---
STUDY: X-RAY - THORACIC SPINE REASON FOR EXAM: Male, 71 years old. S/p fracture and lumbar fusion -- AP and lateral TECHNIQUE: Frontal and lateral view(s) of the thoracic spine were obtained. COMPARISON: Chest x-ray November 05, 2021 FINDINGS: There is postoperative change of the cervical spine with posterior fusion hardware extending to T1. There is postoperative change of the lower thoracic and lumbar spine with fusion and pedicle screws extending from she and through L3. Normal kyphosis of the thoracic spine. There is no substantial scoliosis. There is arthritic change with flowing osteophytes and DISH. There is chronic T11 compression fracture with 50% loss of height. The soft tissue structures are unremarkable. There is port on the left extending to the superior vena cava. RAD/Thoracic Spine 3 Views IMPRESSION: Arthritic and postoperative change. T11 compression fracture. Electronically Signed: Isaiah Nur MD at 21:38 EDT ,
--- NOTE | 2022-05-03 17:19 | NURSING ---
pt off unit for xrays ordered by Dr Lugo at per stating he wants them done now.
--- NOTE | 2022-05-03 17:20 | RAD_ITS ---
STUDY: X-RAY - CERVICAL SPINE REASON FOR EXAM: Male, 71 years old. Follow-up C1 fracture. TECHNIQUE: 3 view(s) of the cervical spine were obtained. COMPARISON: Cervical spine, 04/21/2022. FINDINGS: There are degenerative changes of the anterior atlantoaxial articulation. Normal odontoid process. Normal cervical lordosis. There is again seen posterior fusion of C3-T1. The hardware is intact and unchanged in position. Multilevel degenerative change stable and compared to the prior study. There is no evidence of acute fracture or change in alignment. The soft tissue structures are unremarkable. RAD/Cerv Spine 2 or 3 Views IMPRESSION: No interval change. There is limited visualization of C1 without obvious fracture. Electronically Signed: Smith Sterling DO at 19:35 EDT ,
[2022-05-03 18:29] VITALS: BP 123/62; PULSE 76
--- NOTE | 2022-05-03 18:45 | NURSING ---
pt noted to have a growth/extra skin reddened and bleeding to inferior peg insertion site. bacitracin ordered. will have dr aguilar assess in AM.
[2022-05-03] MEDS: Mirtazapine 15 MG Tablet GT (22:12)
[2022-05-03] MEDS: MELATONIN 10 MG TABLET PO (22:12)
[2022-05-04 01:59] VITALS: PULSE 75; O2SAT 97
[2022-05-04] MEDS: Pivot 1.5 Cal 1,000 ML BOTTLE 275 ML GT ×5 (05:20→21:35)
[2022-05-04] MEDS: Menthol/Lanolin/Calamine/Znox 113 GM Tube 1 APPLIC TOPICAL ×2 (05:21→17:34)
[2022-05-04] MEDS: Allopurinol 100 MG Tablet GT (05:23)
[2022-05-04] MEDS: Sertraline 100 MG Tablet GT (05:23)
[2022-05-04] MEDS: Metoclopramide 5 MG TABLET GT ×2 (05:23→17:33)
[2022-05-04] MEDS: Lansoprazole 15 MG Capsule.DR 30 MG GT (05:24)
[2022-05-04] MEDS: Cephalexin Suspension 250 MG/5 ML PO.SYRINGE 500 MG GT ×3 (05:26→21:37)
[2022-05-04] MEDS: BACITRACIN 15 GM Tube 1 APPLIC TOPICAL (05:42)
[2022-05-04] MEDS: Midodrine HCl 5 MG Tablet PO ×3 (08:11→17:33)
[2022-05-04] MEDS: Aspirin 81 MG TAB.CHEW GT (08:11)
[2022-05-04] MEDS: Gabapentin 300 MG Capsule 600 MG GT ×3 (08:11→17:37)
[2022-05-04] MEDS: Potassium Chloride Oral Soln 20 MEQ/15 ML UDC GT (08:12)
[2022-05-04] MEDS: Folic Acid 1 MG Tablet GT (08:12)
[2022-05-04] MEDS: Carvedilol 12.5 MG Tablet GT ×2 (08:12→17:31)
[2022-05-04] MEDS: Ferrous Sulfate 300 MG/5 ML UDC GT ×2 (08:12→17:31)
[2022-05-04] MEDS: Calcium Carb/Vitamin D 1 TABLET Tablet GT ×2 (08:12→17:32)
[2022-05-04] MEDS: Thiamine Hydrochloride 100 MG Tablet GT (08:13)
[2022-05-04] MEDS: Cyanocobalamin 500 MCG Tablet 1000 MCG GT ×2 (08:13→17:33)
[2022-05-04] MEDS: Chlorhexidine 480 ML 15 ML PO ×2 (08:16→21:32)
[2022-05-04 09:32] VITALS: PULSE 64; RESP 16; O2SAT 98
[2022-05-04] MEDS: oxyCODONE Soln 5 MG/0.25 ML PO.SYRINGE 10 MG SL (10:04)
--- NOTE | 2022-05-04 14:10 | WOUNDNOTE ---
wound photo: PEG site abdomen
[2022-05-04 14:33] VITALS: BP 117/65; PULSE 72; RESP 14; TEMP 36.8; O2SAT 75
--- NOTE | 2022-05-04 16:00 | CHAPLAIN ---
Type of Pastoral Visit ___ Initial Visit _x__ Follow-up Visit ___ On-call Visit ___ General Patient Visit ___ Spiritual Assessment ___ Family Conference ___ Bereavement ___ Rapid Response ___ Code Blue ___ Other (describe below) Pastoral Care Referral From _x__ Patient _x__ Family ___ Nurse ___ Physician ___ Director Physical ___ Graduation Coach ___ Other (describe below) Sacrament/Intervention _x__ Active listening ___ Anointing ___ Confucianism ___ Bereavement ___ Communion ___ Marline exploration ___ ___ Life review _x__ Prayer ___ Reconciliation ___ Sacrament of Sick _x__ Supportive presence ___ Wedding ___ Other (describe below) Pastoral Comments this follow up visit was to explore how patient is dealing with his recovery; his spouse had contacted this director business integration yesterday about lack of information about care and treatment from his providing hospital (not this one) and in misinformation about appointments etc. that were frustrating to spouse and possibly the patient; pt talks more about the trip to that hospital than he does about his lack of information; pt admits that he is realizing more and more how severe his injuries were and how rajani he is as well; pt talks with humor and states that I will get better; casual conversation also about life and news and sports; prayer is welcomed too
--- NOTE | 2022-05-04 16:10 | NURSING ---
Family notified of positive covid resident
[2022-05-04] MEDS: MELATONIN 10 MG TABLET PO (21:35)
[2022-05-04] MEDS: Mirtazapine 15 MG Tablet GT (21:35)
[2022-05-05] MEDS: oxyCODONE Soln 5 MG/0.25 ML PO.SYRINGE 10 MG SL ×2 (04:08→08:30)
[2022-05-05] MEDS: Cephalexin Suspension 250 MG/5 ML PO.SYRINGE 500 MG GT ×3 (04:56→22:15)
[2022-05-05] MEDS: Sertraline 100 MG Tablet GT (04:56)
[2022-05-05] MEDS: Metoclopramide 5 MG TABLET GT ×2 (04:56→18:20)
[2022-05-05] MEDS: Lansoprazole 15 MG Capsule.DR 30 MG GT (04:56)
[2022-05-05] MEDS: Pivot 1.5 Cal 1,000 ML BOTTLE 275 ML GT ×5 (04:57→22:15)
[2022-05-05] MEDS: Allopurinol 100 MG Tablet GT (04:57)
[2022-05-05] MEDS: Menthol/Lanolin/Calamine/Znox 113 GM Tube 1 APPLIC TOPICAL ×2 (04:59→18:36)
[2022-05-05] MEDS: Cyanocobalamin 500 MCG Tablet 1000 MCG GT ×2 (08:57→18:20)
[2022-05-05] MEDS: Gabapentin 300 MG Capsule 600 MG GT ×3 (08:57→18:18)
[2022-05-05] MEDS: Thiamine Hydrochloride 100 MG Tablet GT (08:57)
[2022-05-05] MEDS: Potassium Chloride Oral Soln 20 MEQ/15 ML UDC GT (08:57)
[2022-05-05] MEDS: Calcium Carb/Vitamin D 1 TABLET Tablet GT ×2 (08:57→18:19)
[2022-05-05] MEDS: Ferrous Sulfate 300 MG/5 ML UDC GT ×2 (08:57→18:19)
[2022-05-05] MEDS: Folic Acid 1 MG Tablet GT (08:57)
[2022-05-05] MEDS: Midodrine HCl 5 MG Tablet PO ×3 (08:57→18:20)
[2022-05-05] MEDS: Aspirin 81 MG TAB.CHEW GT (08:58)
[2022-05-05] MEDS: Carvedilol 12.5 MG Tablet GT ×2 (08:58→18:21)
[2022-05-05] MEDS: Acetaminophen 650 MG/20 ML UDC 975 MG GT ×3 (08:59→22:01)
[2022-05-05] MEDS: Chlorhexidine 480 ML 15 ML PO ×2 (09:00→22:14)
[2022-05-05 09:21] VITALS: BP 131/67; PULSE 76
[2022-05-05 14:31] VITALS: BP 105/53; PULSE 74; RESP 14; TEMP 36.2; O2SAT 95
[2022-05-05 16:40] VITALS: PULSE 74; RESP 18; TEMP 35.9; O2SAT 94
[2022-05-05 18:37] VITALS: BP 109/61; PULSE 74
[2022-05-05 20:24] VITALS: PULSE 79; RESP 16; O2SAT 97
[2022-05-05] MEDS: MELATONIN 10 MG TABLET PO (22:15)
[2022-05-05] MEDS: Mirtazapine 15 MG Tablet GT (22:16)
[2022-05-06] MEDS: Cephalexin Suspension 250 MG/5 ML PO.SYRINGE 500 MG GT ×3 (06:32→23:07)
[2022-05-06] MEDS: Lansoprazole 15 MG Capsule.DR 30 MG GT ×2 (06:33→18:16)
[2022-05-06] MEDS: Sertraline 100 MG Tablet GT (06:33)
[2022-05-06] MEDS: Allopurinol 100 MG Tablet GT (06:34)
[2022-05-06] MEDS: Acetaminophen 650 MG/20 ML UDC 975 MG GT ×3 (06:34→23:05)
[2022-05-06] MEDS: Metoclopramide 5 MG TABLET GT ×2 (06:34→18:16)
[2022-05-06] MEDS: Pivot 1.5 Cal 1,000 ML BOTTLE 275 ML GT ×5 (06:43→22:57)
[2022-05-06] MEDS: Menthol/Lanolin/Calamine/Znox 113 GM Tube 1 APPLIC TOPICAL ×2 (06:44→18:36)
[2022-05-06 06:47] VITALS: BP 142/65; PULSE 72
[2022-05-06 07:21] VITALS: O2SAT 95
[2022-05-06] MEDS: Gabapentin 300 MG Capsule 600 MG GT ×3 (08:37→18:16)
[2022-05-06] MEDS: Carvedilol 12.5 MG Tablet GT ×2 (08:39→18:16)
[2022-05-06] MEDS: Potassium Chloride Oral Soln 20 MEQ/15 ML UDC GT (08:39)
[2022-05-06] MEDS: Ferrous Sulfate 300 MG/5 ML UDC GT ×2 (08:39→18:15)
[2022-05-06] MEDS: Aspirin 81 MG TAB.CHEW GT (08:39)
[2022-05-06] MEDS: Thiamine Hydrochloride 100 MG Tablet GT (08:39)
[2022-05-06] MEDS: Cyanocobalamin 500 MCG Tablet 1000 MCG GT ×2 (08:39→18:15)
[2022-05-06] MEDS: Folic Acid 1 MG Tablet GT (08:39)
[2022-05-06] MEDS: Midodrine HCl 5 MG Tablet PO ×3 (08:39→18:15)
[2022-05-06] MEDS: Calcium Carb/Vitamin D 1 TABLET Tablet GT ×2 (08:39→18:15)
[2022-05-06] MEDS: Chlorhexidine 480 ML 15 ML PO ×2 (08:39→22:53)
[2022-05-06 09:03] VITALS: BP 138/72; PULSE 80
--- NOTE | 2022-05-06 12:08 | CON.PCM_ITS ---
Assessment & Plan Assessment/Plan (1) Irritation around percutaneous endoscopic gastrostomy (PEG) tube site: PLAN: It is not appear to be any signs of bumper syndrome. Of tube should be rotated in a counterclockwise and clockwise rotation for [address] to allow the stoma to form a nice tract in the setting of a new gastrostomy tube. Also there needs to be at least two 2 x 2's or 4 x 4's underneath of the bumper at all times to avoid pressure ulcer that can form. I would recommend that we use bacitracin plus a antifungal topical treatment and a antibiotic treatment through the PEG tube to facilitate healing. The bu mper should be at 4 cm of possible to avoid irritation. Excessive pressure between the PEG?s external and internal bolsters is associated with a higher infection rate?thus setting and maintaining the proper tension can decrease the likelihood of infection. Loose contact of the outer bolster with the skin is all that is required to appose the gastric and abdominal wall. I also recommend twice a day PPI therapy to decrease the amount has been it is not healing from the inside of the stomach at the location of the bumper. HPI Consult Data Date of Consult: 05/06/22 HPI Narrative Reason for Consultation: malfunctioning peg HPI Narrative: NIDIA HICKMAN, is a 71 M with a history of hypertension, obstructive sleep apnea, anemia, fatty liver, anemia, GI bleed, multiple myeloma, ENVIRONMENTAL TECH trauma/hemorrhagic events, and a DVT. He is currently without his anticoagulant therapy until recently started on Heparin. He also has an extensive history of falls and he fell down some stairs at home and and sustained a C1 Nathaniel fracture, C5 vertebral body fracture, C6 superior endplate fracture, C7 TP fracture, left vertebral artery dissection, L6 through 9 rib fractures and a? right mandible fracture.? He was admitted to [facility] He was taken to the OR on 03/26/2022 for decompression and internal fixation of C4-C6, C3-T1 and T10?T 13. He had been scheduled for an extensive procedure to repair the osteonecrosis of the mandible and he was seen by was seen by ENT while at [facility].? They recommended no surgery on the mandible until cleared by Neurosurgery which would not be for another 4-6 weeks. He was seen by PT/OT while at [facility] and acute rehab was recommended at [place]. ? He was transferred to the acute rehab unit at [facility] on 03/31/22. He failed a swallowing study and I was consulted to place a PEG on 04/06/2022. He had a PEG tube placed on 04/07/2022. Approximately 5 days ago he started developing some abdominal pain around the PEG site. He has been maintaining his weight and is still n.p.o. as he remains in rehab. There was some questions regarding a possible leaking of gastric contents through the stoma. The stoma was treated with silver nitrate around the stomal site for some possible bruising from stomach content. He said that he is not in much pain at this time. He denies any nausea. He is not having residuals from his PEG feedings. He denies abdominal distention. All other 16 review of systems are negative except as per body mentioned HPI. [facility] Medical History (Reviewed 04/26/22 @ 12:18 by Sayra Romeo DIRECTOR EXECUTIVE COMMUNICATIONS, DIRECTOR EXECUTIVE COMMUNICATIONS-C) Acute deep vein thrombosis (DVT) of left lower extremity Alcoholism Anemia Angiodysplasia of colon Angiodysplasia of stomach Aseptic necrosis of jaw Asthma Atrial fibrillation with RVR Autonomic neuropathy B12 deficiency Back pain BiPAP (biphasic positive airway pressure) dependence Bladder disease BPH with obstruction/lower urinary tract symptoms Cardiology follow-up encounter Chest pain, unspecified Chronic deep vein thrombosis (DVT) Chronic diarrhea Closed L1 vertebral fracture Closed L2 vertebral fracture Closed T11 fracture Cognitive dysfunction Colon polyps Debility Depression DVT (deep venous thrombosis) Easy bruising Essential (primary) hypertension ETOH abuse Fatty liver Gastric reflux Gastroesophageal reflux disease GI bleed Gout History of CHF (congestive heart failure) History of COVID-19 History of edema History of hepatitis C History of stress test Hypertension Hypomagnesemia Idiopathic gout Injury of head and neck Iron deficiency Lumbar spinal stenosis Lytic lesion of bone on x-ray Multiple myeloma Multiple myeloma not having achieved remission Neuropathy Neuropathy Obstructive sleep apnea Orthostatic hypotension Osteopenia determined by x-ray Pancytopenia Peripheral neuropathy Prostatic enlargement PTSD (post-traumatic stress disorder) Pulmonary hypertension Scratched by cat Shortness of breath on exertion Submandibular abscess SVT (supraventricular tachycardia) Syncope Syncope and collapse Thrombocytopenia Thyroid nodule incidentally noted on imaging study Torn ligament Urinary (tract) obstruction Wears glasses Wears hearing aid in both ears Home Medications albuterol sulfate 90 mcg/actuation aerosol inhaler (Ventolin HFA) 2 puff inhalation Q4H PRN shortness of breath or wheezing #18 grams 11/19/21 [Rx Last Taken Unknown] allopurinol 100 mg tablet 100 mg feeding tube DAILY gout 12/16/21 [History Last Taken Unknown] chlorhexidine gluconate 0.12 % mouthwash 15 ml PO BID mouthwash 01/12/22 [History Last Taken Unknown] gabapentin 300 mg capsule 300 mg PO TIDCM neuropathy 03/31/22 [History Last Taken Unknown] acetaminophen 650 mg/20.3 mL oral solution 975 mg (30.45 mL) NG Q6H PRN PRN PAIN 1-10 #0 mL 04/16/22 [Rx Last Taken Unknown] aspirin 81 mg chewable tablet 81 mg NG DAILYCM heart health 04/16/22 [History Last Taken Unknown] calcium carbonate 500 mg-vitamin D3 5 mcg (200 unit) tablet (Oyster Shell Calcium-Vitamin D3) 1 tab NG BIDCM supplement 04/16/22 [History Last Taken Unknown] carvedilol 12.5 mg tablet 12.5 mg feeding tube BIDCM heart #1 TAB 04/16/22 [Rx Last Taken Unknown] cyanocobalamin (vitamin B-12) 1,000 mcg tablet (Vitamin B-12) 1,000 mcg feeding tube BID supplement #1 TAB 04/16/22 [Rx Last Taken Unknown] ferrous sulfate 325 mg (65 mg iron) tablet 325 mg feeding tube BIDCM supplement #1 TAB 04/16/22 [Rx Last Taken 11/15/21] folic acid 1 mg tablet 1 mg feeding tube DAILY supplement #1 TAB 04/16/22 [Rx Last Taken 11/15/21] heparin, porcine (PF) 100 unit/mL intravenous syringe (Heparin Lock Flush (Porcine) (PF)) 50 unit (0.5 mL) IV UD PRN Heparin Flush #0 mL 04/16/22 [Rx Last Taken Unknown] lactase 3,000 unit tablet 3,000 unit feeding tube TIDCM lactose intolerance #1 TAB 04/16/22 [Rx Last Taken Unknown] magnesium hydroxide 400 mg/5 mL oral suspension 30 ml feeding tube .PRN X 1 PRN Constipation 04/16/22 [History Last Taken Unknown] magnesium oxide 400 mg (241.3 mg magnesium) tablet 400 mg feeding tube BIDCM supplement #1 TAB 04/16/22 [Rx Last Taken Unknown] metoclopramide HCl 5 mg tablet 5 mg G-tube 0500,1700 stomach 04/16/22 [History Last Taken Unknown] mirtazapine 15 mg tablet 15 mg feeding tube QHS appetitie #1 TAB 04/16/22 [Rx Last Taken 11/15/21] nut.tx.comp. immune systm,reg 0.09 gram-1.5 kcal/mL liquid for tube feed (Pivot 1.5 Perla) 275 ml G-tube 5X/DAY nutrition 04/16/22 [History Last Taken Unknown] oxycodone 20 mg/mL oral concentrate 5 mg (0.25 mL) NG Q6H PRN Pain Score 4-10 #0 mL 04/16/22 [Rx Last Taken Unknown] potassium chloride 20 mEq/15 mL oral liquid 20 meq feeding tube BREAKFAST supplement 04/16/22 [History Last Taken Unknown] saliva substitute combo no.9 (Biotene Dry Mouth Oral Rinse mouthwash) 15 ml mucous membrane 5X/DAY PRN Dry Mouth #0 mL 04/16/22 [Rx Last Taken Unknown] sertraline 100 mg tablet 100 mg feeding tube DAILY depression/anxiety #1 TAB 04/16/22 [Rx Last Taken 11/15/21] thiamine HCl (vitamin B1) 100 mg tablet 100 mg feeding tube DAILY supplement #1 TAB 04/16/22 [Rx Last Taken Unknown] lansoprazole 15 mg capsule,delayed release 15 mg PO DAILY 04/26/22 [History Last Taken Unknown] Allergy/AdvReac Type Severity Reaction Status Date / Time No Known Allergies Allergy Verified 05/03/22 10:08 Family History Mother Heart disease Hypertension Father Hypertension Surgical History History of bone marrow biopsy History of bunionectomy History of spinal fusion History of transurethral resection of prostate Hx of colonoscopy S/P percutaneous endoscopic gastrostomy (PEG) tube placement Social History household members: spouse Smoking Status: Never smoker alcohol intake: current alcohol intake frequency: 3 or more drinks per day substance use type: does not use ROS Constitutional Constitutional: Denies chills, fever(s) or weight gain ENT HEENT: Denies headache(s), nasal congestion or nasal discharge Cardiovascular Cardiovascular: Denies chest pain or palpitations Respiratory/Chest Respiratory/Chest: Denies cough, excessive phlegm production or shortness of breath with exertion Gastrointestinal Gastrointestinal: Denies abdominal pain, nausea or vomiting Genitourinary Genitourinary: Denies dysuria Musculoskeletal Musculoskeletal: Denies joint pain or joint swelling Integumentary Integumentary: Denies rash or wounds Neurologic Neurologic: Denies focal weakness, numbness or tingling Psychiatric Psychiatric: Denies anxiety, auditory hallucinations, depression, homicidal ideation or suicidal ideation Physical Exam Const alert General Appearance: cooperative HEENT normocephalic Eyes PERRL and EOMs intact bilaterally Neck supple, no JVD and no carotid bruits Resp normal respiratory effort, normal air movement and clear to auscultation bilaterally Cardio regular rate and regular rhythm GI normal to inspection, nondistended, normoactive bowel sounds, non-tender and non-distended GI Narrative: PEG tube. There is some excoriation with redness and irritation around the stomal site. The bumper is at 3.5 cm. There is no discharge or fluid coming from the PEG tube. The PEG tube does not appear to cracked. Extremity normal capillary refill General Extremity: Negative for edema Skin no rashes or lesions noted General Skin Exam: no breakdown Psych affect normal Appearance: appropriate Medical Records Data Medical Nutrition Assessment Dietitian: Malnutrition Criteria Met Start: 04/18/22 12:15 Freq: Status: Active Protocol: Document 04/25/22 14:13 ANNE (Rec: 04/25/22 14:13 ANNE [id number]) Nutrition Malnutrition Evidence of Malnutrition Exists Yes Malnutrition (severe): Acute Illness/Injury Evidenced By Suboptimal Energy Intake ( Severe),Weight Loss (Severe) Intake Problem Inadequate Oral Intake Etiology related to dysphagia Signs/Symptoms as evidenced by NPO status, inability to consume sufficient nutrition via PO diet x > 2 wks Status Active Problem Clinical Problem Acute Disease or Injury Related Malnutrition Etiology severe, acute malnutrition related to inadequate energy intake d/t dysphagia Signs/Symptoms as evidenced by no significant PO intake x > 2wks; 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 2- Once able to resume po diet , rec liberal Regular w/ consistency per [employer]LL CAPTAIN. Provide magic cup or ensure pudding w/ meals for increased nutrition if consumed. 3- Once able to have po diet, rec Pivot 1.5 bolus feeds 240 ml TF formula w/ 180 ml H2O flush if intake <50% at meals and 240 ml Pivot 1.5 w/ 180 ml H2O flush at HS. Each bolus will provide ~ 360 perla/ 22.5 gm pro/day. If all four bolus feeds given = 1440 perla/ 90 gm pro / 1440 ml free water /day and provide ~ 72% of estimated perla needs/ 75% of est pro needs/day. 4 - Daily wts-- monitor/trend weights closely and increase TF/supplement po diet if wt loss occurs. Lab / Micro Data Result Diagrams: 05/01/22 05:40 05/01/22 05:40 Micro: Microbiology 05/05/22 15:30 Nasal Secretion SARS-CoV-2 Antigen (Rapid) - Final Charges/Coding Visit Charges Inpatient E&M: 50446 Init Hosp L2
--- NOTE | 2022-05-06 15:11 | CASEMGMT ---
Addendum entered by Arianna Islas 05/06/22 17:00: [facility] stated the Medicare benefits will need to be verified prior to shipping out the tube feed. [facility] will work on this 05/07 and notify ED SW of outcome. SW updated nursing, dietary, pt and . Advised to pt and of risk of discharging home without tube feed supplies. Dietary 4 bags of Pivot and TCU to send home remaining 2 bags with pt. and pt still electing to DC home as planned 05/07 and [facility] to deliver tube feed 05/10 once verified. Addendum entered by Arianna Islas 05/06/22 16:05: [facility] does not supply tube feed. SW referred to [facility] via phone and faxed paperwork. Addendum entered by Arianna Islas 05/06/22 15:33: prefers [facility] - referral made via phone for PT/OT/ST/SN Original Note: Social Work IDT recommending DC home until surgery and to preserve Medicare days. SW spoke with pt and pt agreeable to DC home. SW contacted to discuss DC plans. happy and requesting DC 05/07 as dtr's [birth year] is [birth year]. SW advised C may not be able to visit pt over the holiday weekend. expressed understanding and confidence in administering tube feed. IDT agreeable to DC 05/07. SW sent HHC list to via text via [employer] of providers including quality and resource use data and consistent with the patient?s preferred geographic region, medical needs, and insurance network. Pt needs no DME. to transport. Plan: DC home with 05/07, HHC PT/OT/ST/SN [facility] Smith
--- NOTE | 2022-05-06 15:41 | DS.PCM_ITS ---
Providers Date of Admission: 04/16/22 Primary Care Physician: Dr. Meghann Leach MD Consultations 04/25/22 23:42 Consult: Onc/Wound/package sealer Routine Comment: MID SPINE HEALING SURGICAL SITE 05/05/22 08:15 Consult: Gastroenterology Routine Consulting Provider: [facility] Reason for Consult: PEG Tube Leaking around site EMERGENT Consult: No MD Notified: Yes Date Notified: 05/05/22 Time Notified: 08:16 Method of Notification: Answering Service Reason For Visit: SPINAL FUSTION S/P TRAMA Diagnosis Discharge Diagnosis (1) Irritation around percutaneous endoscopic gastrostomy (PEG) tube site: Status: Acute Code(s): K94.29 - Other complications of gastrostomy Plan 71 year old male with below past medical history hospitalized for multiple cervical fractures, underwent decompression, internal fixation cervical spine, admitted to , complicated by dysphagia requiring PEG tube placement, due to right mandible fracture, osteonecrosis, admitted to TCU with debility, here for rehabilitation, strengthening, prior to discharge home with . * Debility - PT/OT. * Dysphagia - ST. * Pain - Tylenol 975mg q6h prn pain (1-10), Oxycodone 5mg q6h prn pain (4-10). * Bowel - MOM 30ml x1 prn. * Adult immunization - Administer pneumonia vaccine, covid19 vaccine, flu vaccine as appropriate. * DVT prophylaxis - Hold, anemia. * Shortness of breath - Albuterol MDI 2 puffs q6h prn. * Gout - Allopurinol 100mg daily. * CV prophylaxis - Aspirin 81mg daily. * Calcium deficiency - Calcium D bid. * Hypertension - Coreg 12.5mg bid, Lisinopril 5mg daily. * Oral Hygiene - Peridex 15ml bid, Saliva 15ml 5x/day prn. * B12 deficiency - B12 1000mcg bid. * Iron deficiency anemia - Ferrous sulfate 300mg bid. * Alcohol abuse - Thiamine 100mg daily, Folic Acid 1mg daily. * Neuropathic pain - Gabapentin 300mg tid. * Lactase deficiency - Lactase 3000 units tid. * GERD - Lansoprazole 30mg daily. * Gastroparesis - Reglan 5mg bid. 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 * Nutrition - Pivot 1.5 275ml 5x/day. * Hypokalemia - KCL 20meq daily. 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 Medications at Discharge Home Medications albuterol sulfate 90 mcg/actuation aerosol inhaler (Ventolin HFA) 2 puff inhalation Q4H PRN shortness of breath or wheezing #18 grams 11/19/21 allopurinol 100 mg tablet 100 mg feeding tube DAILY gout 12/16/21 chlorhexidine gluconate 0.12 % mouthwash 15 ml PO BID mouthwash 01/12/22 gabapentin 300 mg capsule 300 mg PO TIDCM neuropathy 03/31/22 aspirin 81 mg chewable tablet 81 mg NG DAILYCM heart health 04/16/22 calcium carbonate 500 mg-vitamin D3 5 mcg (200 unit) tablet (Oyster Shell Calcium-Vitamin D3) 1 tab NG BIDCM supplement 04/16/22 carvedilol 12.5 mg tablet 12.5 mg feeding tube BIDCM heart #1 TAB 04/16/22 cyanocobalamin (vitamin B-12) 1,000 mcg tablet (Vitamin B-12) 1,000 mcg feeding tube BID supplement #1 TAB 04/16/22 folic acid 1 mg tablet 1 mg feeding tube DAILY supplement #1 TAB 04/16/22 magnesium oxide 400 mg (241.3 mg magnesium) tablet 400 mg feeding tube BIDCM supplement #1 TAB 04/16/22 mirtazapine 15 mg tablet 15 mg feeding tube QHS appetitie #1 TAB 04/16/22 potassium chloride 20 mEq/15 mL oral liquid 20 meq feeding tube BREAKFAST supplement 04/16/22 saliva substitute combo no.9 (Biotene Dry Mouth Oral Rinse mouthwash) 15 ml mucous membrane 5X/DAY PRN Dry Mouth #0 mL 04/16/22 sertraline 100 mg tablet 100 mg feeding tube DAILY depression/anxiety #1 TAB 04/16/22 thiamine HCl (vitamin B1) 100 mg tablet 100 mg feeding tube DAILY supplement #1 TAB 04/16/22 acetaminophen 650 mg/20.3 mL oral solution 975 mg (30.45 mL) G-tube TID 30 days #2,740.5 mL 05/06/22 ferrous sulfate 300 mg (60 mg iron)/5 mL oral liquid 300 mg (5 mL) G-tube BIDCM 30 days #300 mL 05/06/22 lansoprazole 15 mg capsule,delayed release 30 mg G-tube BID 30 days #120 caps 05/06/22 metoclopramide HCl 5 mg tablet 5 mg G-tube 0500,1700 30 days #60 tabs 05/06/22 midodrine 5 mg tablet 5 mg PO TIDCM 30 days #90 tabs 05/06/22 nut.tx.comp. immune systm,reg 0.09 gram-1.5 kcal/mL liquid for tube feed (Pivot 1.5 Perla) 275 ml G-tube 5X/DAY 30 days #41,250 mL 05/06/22 oxycodone 20 mg/mL oral concentrate 10 mg (0.5 mL) sublingual Q4H PRN Pain Score 4-10 7 days #21 mL 05/06/22 Hospital Course Operations None Procedures Peg tube placement Summary of Care Provided Minutes Spent on Discharge: 35 Hospital Course: 71 year old male with below past medical history hospitalized for multiple cervical fractures, underwent decompression, internal fixation cervical spine, admitted to [facility], complicated by dysphagia requiring PEG tube placement, due to right mandible fracture, osteonecrosis, admitted to TCU with debility, here for rehabilitation, strengthening, prior to discharge home with . Resident needs surgery for right mandible fracture, osteonecrosis. Discharge home with 05/07/2022, Home Health Care PT/TO/ST/SN. Physical Exam Const alert General Appearance: cooperative HEENT normocephalic Eyes PERRL and EOMs intact bilaterally Neck supple, no JVD and no carotid bruits Resp normal respiratory effort, normal air movement and clear to auscultation bilaterally Cardio regular rate and regular rhythm GI normal to inspection, nondistended, normoactive bowel sounds, non-tender and non-distended GI Narrative: PEG tube. Extremity normal capillary refill General Extremity: Negative for edema Skin no rashes or lesions noted General Skin Exam: no breakdown Psych affect normal Appearance: appropriate Medical Records Data Medical Nutrition Assessment Dietitian: Malnutrition Criteria Met Start: 04/18/22 12:15 Freq: Status: Active Protocol: Document 04/25/22 14:13 ANNE (Rec: 04/25/22 14:13 ANNE [id number]) Nutrition Malnutrition Evidence of Malnutrition Exists Yes Malnutrition (severe): Acute Illness/Injury Evidenced By Suboptimal Energy Intake ( Severe),Weight Loss (Severe) Intake Problem Inadequate Oral Intake Etiology related to dysphagia Signs/Symptoms as evidenced by NPO status, inability to consume sufficient nutrition via PO diet x > 2 wks Status Active Problem Clinical Problem Acute Disease or Injury Related Malnutrition Etiology severe, acute malnutrition related to inadequate energy intake d/t dysphagia Signs/Symptoms as evidenced by no significant PO intake x > 2wks; 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 2- Once able to resume po diet , rec liberal Regular w/ consistency per INSTRUCTOR NURSE. Provide magic cup or ensure pudding w/ meals for increased nutrition if consumed. 3- Once able to have po diet, rec Pivot 1.5 bolus feeds 240 ml TF formula w/ 180 ml H2O flush if intake <50% at meals and 240 ml Pivot 1.5 w/ 180 ml H2O flush at HS. Each bolus will provide ~ 360 perla/ 22.5 gm pro/day. If all four bolus feeds given = 1440 perla/ 90 gm pro / 1440 ml free water /day and provide ~ 72% of estimated perla needs/ 75% of est pro needs/day. 4 - Daily wts-- monitor/trend weights closely and increase TF/supplement po diet if wt loss occurs. Weight / BMI Weight Weight: 81.737 kg Body Mass Index (BMI) 24.0 ABG / Lab / Microbiology Data Result Diagrams: 05/01/22 05:40 05/01/22 05:40 Microbiology: Microbiology 05/05/22 15:30 Nasal Secretion SARS-CoV-2 Antigen (Rapid) - Final 04/28/22 10:55 Nasal Secretion SARS-CoV-2 Antigen (Rapid) - Final 04/23/22 15:30 Nasal Secretion SARS-CoV-2 Antigen (Rapid) - Final D/C Instructions Discharge Diet: - (NPO, TF.) Discharge Activity: Return to Normal Activity, May Shower and Use Walker Weight Bearing Status: Weight bearing as tolerated Call your doctor if you observe: Fever of 101 or Higher, Inability to urinate, Inability to have a bowel movement, Shortness of breath, Dizziness, Fainting spells, Swelling in the ankles, Chest pain and Uncontrolled pain Additional Instructions: Discharge home with 05/07/2022, Home Health Care PT/TO/ST/SN. Please Follow Up With: Roberto Alva When: As scheduled. Meaningful Use Info Meaningful Use Diagnoses (Choose all that apply): None applicable Discharge Plan Admission Admit Date/Time: 04/16/22 14:00 Primary Reason for Your Visit: Debility. Attending Provider: Ezequiel Tam Chi Primary Care Provider: Meghann Leach Instructions Additional Instructions / Restrictions: Discharge home with 05/07/2022, Home Health Care PT/TO/ST/SN. Discharge Orders/Prescriptions Prescriptions: New metoclopramide HCl 5 mg Tablet 5 mg G-tube 0500,1700 30 Days Qty: 60 0RF ferrous sulfate 300 mg (60 mg iron)/5 mL Liquid 300 mg G-tube BIDCM 30 Days Qty: 300 0RF lansoprazole 15 mg Capsule,Delayed Release(Dr/Ec) 30 mg G-tube BID 30 Days Qty: 120 0RF oxycodone 20 mg/mL Concentrate 10 mg sublingual Q4H PRN (Reason: Pain Score 4-10) 7 Days Qty: 21 0RF acetaminophen 650 mg/20.3 mL Solution 975 mg G-tube TID 30 Days Qty: 2740.5 0RF Pivot 1.5 Perla 0.09 gram- 1.5 kcal/mL Liquid 275 ml G-tube 5X/DAY 30 Days Qty: 99569 0RF midodrine 5 mg Tablet 5 mg PO TIDCM 30 Days Qty: 90 0RF Continued albuterol sulfate [Ventolin HFA] 90 mcg/actuation HFA aerosol inhaler 2 puff inhalation Q4H PRN (Reason: shortness of breath or wheezing) Qty: 18 6RF chlorhexidine gluconate 0.12 % mouthwash 15 ml PO BID Label Comments: RINSE AND SPIT 15 ML'S TWICE DAILY AFTER BREAKFAST/BEFORE BEDTIME FOLLOWING BRUSHING AND FLOSSING Rx Instructions: after breakfast and before bedtime after brushing and flossing allopurinol 100 mg tablet 100 mg feeding tube DAILY Label Comments: TAKE 1 TABLET BY MOUTH EVERY DAY gabapentin 300 mg capsule 300 mg PO TIDCM Biotene Dry Mouth Oral Rinse Mouthwash 15 ml mucous membrane 5X/DAY PRN (Reason: Dry Mouth) Qty: 0 0RF Rx Instructions: via oral swab carvedilol 12.5 mg tablet 12.5 mg feeding tube BIDCM Qty: 1 0RF sertraline 100 mg Tablet 100 mg feeding tube DAILY Qty: 1 0RF cyanocobalamin (vitamin B-12) [Vitamin B-12] 1,000 mcg Tablet 1,000 mcg feeding tube BID Qty: 1 0RF thiamine HCl (vitamin B1) 100 mg Tablet 100 mg feeding tube DAILY Qty: 1 0RF magnesium oxide 400 mg (241.3 mg magnesium) tablet 400 mg feeding tube BIDCM Qty: 1 0RF Rx Instructions: TAKE 1 TABLET BY MOUTH TWICE A DAY folic acid 1 mg Tablet 1 mg feeding tube DAILY Qty: 1 0RF mirtazapine 15 mg tablet 15 mg feeding tube QHS Qty: 1 0RF potassium chloride 20 mEq/15 mL liquid 20 meq feeding tube BREAKFAST aspirin 81 mg tablet,chewable 81 mg NG DAILYCM calcium carbonate-vitamin D3 [Oyster Shell Calcium-Vit D3] 500 mg-5 mcg (200 unit) tablet 1 tab NG BIDCM Discontinued lansoprazole 15 mg capsule,delayed release(DR/EC) 15 mg PO DAILY acetaminophen 650 mg/20.3 mL Solution 975 mg NG Q6H PRN PRN (Reason: PAIN 1-10) Qty: 0 0RF oxycodone 20 mg/mL Concentrate 5 mg NG Q6H PRN (Reason: Pain Score 4-10) Qty: 0 0RF heparin, porcine (PF) [Heparin LockFlush(Porcine)(PF)] 100 unit/mL Syringe 50 unit IV UD PRN (Reason: Heparin Flush) Qty: 0 0RF ferrous sulfate 325 MG tablet 325 mg feeding tube BIDCM Qty: 1 0RF Rx Instructions: take with food lactase 3,000 unit Tablet 3,000 unit feeding tube TIDCM Qty: 1 0RF metoclopramide HCl 5 mg tablet 5 mg G-tube 0500,1700 magnesium hydroxide 400 mg/5 mL suspension 30 ml feeding tube .PRN X 1 PRN (Reason: Constipation) Pivot 1.5 Perla 0.09 gram- 1.5 kcal/mL liquid 275 ml G-tube 5X/DAY Rx Instructions: 100cc water flush with each bolus Referrals / Follow Up: Meghann Leach MD [Primary Care Provider] - Disposition Disposition (needs filled in before D/C Order can be placed): Home Health Service
[2022-05-06 16:00] VITALS: BP 159/71; PULSE 82; RESP 16; TEMP 36.9; O2SAT 96
--- NOTE | 2022-05-06 16:23 | CASEMGMT ---
Social Work BIMS and PHQ-9 completed for MDS assessment. Arianna Islas, BUTTERMAK[employer]
--- NOTE | 2022-05-06 16:54 | NS ---
Informed by nsg that res is being d/c'd tomorrow. Will not be able to get Pivot 1.5 formula for tube feed until 05/10 d/t holiday weekend. Talked to Jesus in pharmacy and he will bring 4 bottles of Pivot 1.5 to floor later today for res to take home with him - also res to take any of remaining bottle being used at time of discharge. Spoke to Arianna, drug abuse social worker and SIVA Capone, about this plan. RN will review with res on how to safely maintain formula (use container within 24 hours) and how to dose bolus feeds. Res is knowledgeable about provide bolus feeds/flushes to res via PEG.
[2022-05-06] MEDS: BACITRACIN 15 GM Tube 1 APPLIC TOPICAL (18:35)
[2022-05-06] MEDS: Nystatin Powder 15gm Bottle 1 APPLIC TOPICAL (18:38)
[2022-05-06] MEDS: MELATONIN 10 MG TABLET PO (22:56)
[2022-05-06] MEDS: Mirtazapine 15 MG Tablet GT (22:58)
[2022-05-07] MEDS: Pivot 1.5 Cal 1,000 ML BOTTLE 275 ML GT ×2 (06:26→09:13)
[2022-05-07] MEDS: Acetaminophen 650 MG/20 ML UDC 975 MG GT (06:27)
[2022-05-07] MEDS: Cephalexin Suspension 250 MG/5 ML PO.SYRINGE 500 MG GT (06:27)
[2022-05-07] MEDS: BACITRACIN 15 GM Tube 1 APPLIC TOPICAL (06:28)
[2022-05-07] MEDS: Menthol/Lanolin/Calamine/Znox 113 GM Tube 1 APPLIC TOPICAL (06:30)
[2022-05-07] MEDS: Sertraline 100 MG Tablet GT (06:30)
[2022-05-07] MEDS: Metoclopramide 5 MG TABLET GT (06:30)
[2022-05-07] MEDS: Allopurinol 100 MG Tablet GT (06:30)
[2022-05-07] MEDS: Lansoprazole 15 MG Capsule.DR 30 MG GT (06:30)
[2022-05-07] MEDS: Nystatin Powder 15gm Bottle 1 APPLIC TOPICAL (06:31)
[2022-05-07 07:33] VITALS: O2SAT 97
[2022-05-07] MEDS: Aspirin 81 MG TAB.CHEW GT (09:12)
[2022-05-07] MEDS: Folic Acid 1 MG Tablet GT (09:12)
[2022-05-07] MEDS: Carvedilol 12.5 MG Tablet GT (09:12)
[2022-05-07] MEDS: Midodrine HCl 5 MG Tablet PO (09:12)
[2022-05-07] MEDS: Calcium Carb/Vitamin D 1 TABLET Tablet GT (09:12)
[2022-05-07] MEDS: Chlorhexidine 480 ML 15 ML PO (09:13)
[2022-05-07] MEDS: Gabapentin 300 MG Capsule 600 MG GT (09:13)
[2022-05-07] MEDS: Thiamine Hydrochloride 100 MG Tablet GT (09:13)
[2022-05-07] MEDS: Ferrous Sulfate 300 MG/5 ML UDC GT (09:13)
[2022-05-07] MEDS: Cyanocobalamin 500 MCG Tablet 1000 MCG GT (09:13)
[2022-05-07] MEDS: Potassium Chloride Oral Soln 20 MEQ/15 ML UDC GT (09:13)
[2022-05-07 09:27] VITALS: BP 151/68; PULSE 62; RESP 16; TEMP 36.2; O2SAT 95
--- NOTE | 2022-05-07 10:28 | NURSING ---
pt demonstrated tube feed and medication administration via PEG tube. wallet given to .
[2022-05-07 10:29] VITALS: PULSE 71; RESP 16; O2SAT 95
--- NOTE | 2022-05-07 16:05 | CASEMGMT ---
Social Work RN called in regard to pt's formula for tube feeds. As per SW note, [facility] was to follow up w/SW today about how the formula would be covered. SW did not receive a call. SW let RN know to let family know that SW will follow up and let them know on Monday, it seems from the note that the formula is to be delivered Monday. SW called [facility] as they did not follow up today. SW informed that they need a prescription for the formula. They also need it documented how long the formula will be needed, Medicare only covers if it's more than 90 days. Additionally, they need it documented the justification for the specialty formula, if they tried and the standard formula failed or what is the justification. The Medicare team does not return until Monday so they can review all of this on Monday. They can potentially deliver the formula Caroline. Also if it is not covered, the family can pay for it privately. SW will let the SW for TCU know, and let the RN in TCU know as well. NIRU Whitlock
--- NOTE | 2022-05-10 14:09 | CASEMGMT ---
Social Work SW received signed script from and spoke with the wholesale account manager to get the proper documentation requested by Medicare. Spoke with Jyothi at [facility] to update and confirm all needed paperwork has been received. SW spoke with to answer questions, provide updates from [facility]. appreciative and stated the RN from [facility] is scheduled today to assist. [facility] to deliver tube feed by end of day today. RIVAS SmithW
== END 2022-05-07 10:30 | disposition home health service (06) | DRG 560 ==
PROVIDERS: Admitting Provider Family Medicine Geriatric Medicine; PCP Internal Medicine; Visit Provider Family Medicine Geriatric Medicine
DX: S12.300D Unspecified displaced fracture of fourth cervical vertebra, subsequent encounter for fracture with routine healing (principal); C90.00 Multiple myeloma not having achieved remission; I11.0 Hypertensive heart disease with heart failure; K94.29 Other complications of gastrostomy; D50.9 Iron deficiency anemia, unspecified; K21.9 Gastro-esophageal reflux disease without esophagitis; E53.8 Deficiency of other specified B group vitamins; I50.9 Heart failure, unspecified; F10.20 Alcohol dependence, uncomplicated; Z93.1 Gastrostomy status; E87.6 Hypokalemia; G47.33 Obstructive sleep apnea (adult) (pediatric); M10.00 Idiopathic gout, unspecified site; G62.9 Polyneuropathy, unspecified; M10.9 Gout, unspecified; F10.10 Alcohol abuse, uncomplicated; N40.0 Benign prostatic hyperplasia without lower urinary tract symptoms; F32.A Depression, unspecified; Z79.899 Other long term (current) drug therapy; Z79.82 Long term (current) use of aspirin; Z79.01 Long term (current) use of anticoagulants; X58.XXXD Exposure to other specified factors, subsequent encounter; S12.400D Unspecified displaced fracture of fifth cervical vertebra, subsequent encounter for fracture with routine healing; S12.600D Unspecified displaced fracture of seventh cervical vertebra, subsequent encounter for fracture with routine healing; S12.500D Unspecified displaced fracture of sixth cervical vertebra, subsequent encounter for fracture with routine healing; S02.609D Fracture of mandible, unspecified, subsequent encounter for fracture with routine healing; Z86.16 Personal history of COVID-19; Z23 Encounter for immunization; R13.12 Dysphagia, oropharyngeal phase
CPT/HCPCS: 0004A; 36415; 70110; 70260; 72040; 72050; 72072; 72100; 80048; 85025; 87811; 91300; 92507; 92526; 92610; 97110; 97116; 97162; 97165; 97530; 97535; 97537; 97802; 97803

== ENCOUNTER → 2022-05-04 | Outpatient (CLI) | payer MEDICARE, BC, SELFPAY ==
--- NOTE | 2022-05-04 10:55 | CT_ITS ---
STUDY: CT CERVICAL SPINE WITHOUT CONTRAST REASON FOR EXAM: Male, 71 years old. NECK PAIN. INTERNAL FIXATION 03/26/22, RECENT MANDIBLE FX RADIATION DOSAGE (If Supplied By Facility): CTDIvol = ( 20.85 ) mGy, DLP = ( 467.09 ) mGycm TECHNIQUE: High resolution transaxial imaging was performed without contrast material. Sagittal and coronal images were reconstructed. Individualized dose optimization techniques were used for this CT. COMPARISON: None FINDINGS: Normal craniovertebral junction. There are degenerative changes of the anterior atlantoaxial articulation. Normal odontoid process. There is straightening of the normal cervical lordosis. The patient is status post laminectomy with interpedicular screw fixation and bone grafting from the C3 down to the T1 level. C2-3: Normal endplates. Normal disc height and morphology. Normal central canal and intervertebral neuroforamina. C3-4: Anterior spondylosis. The disc spaces relatively well defined. C4-5: Extensive anterior spondylosis. Mild degree of disc space narrowing. C5-6: Spondylosis. Mild degree of disc space narrowing. C6-7: Anterior spondylosis and disc space narrowing. C7-T1: Normal endplates. Normal disc height and morphology. Normal central canal and intervertebral neuroforamina. There is evidence of a 1.8 cm x 1.9 cm rounded lucency in the posterior right cerebellar hemisphere. This corresponds to a dilated posterior right occipital horn. CT/Spine Cervical without Contras IMPRESSION: Status post laminectomy with interpedicular screw and nargis fixation from the C3 down to the T1 vertebral level with multiple levels of the spondylosis and disc space narrowing. Electronically Signed: Collins Carlson MD at 12:00 EDT ,
== END | disposition home or self-care (01) ==
PROVIDERS: PCP Internal Medicine
DX: S12.9XXA Fracture of neck, unspecified, initial encounter (principal); S22.009A Unspecified fracture of unspecified thoracic vertebra, initial encounter for closed fracture; Z98.1 Arthrodesis status
CPT/HCPCS: 72125

== ENCOUNTER → 2022-06-07 | Outpatient (CLI) | payer MEDICARE, BC, SELFPAY ==
--- NOTE | 2022-06-07 08:46 | CYSPIN_PTH ---
PATIENT: NIDIA HICKMAN LOC: [facility] U#:[id number] AGE/SX: 71/M ROOM: RE06/07/[address]: Dr. Zeke Oliver MD : 1950 BED: DIS: 06/07/2022 SPEC #: [id number] RECD: 06/08/22 06:58 STATUS: JOSHUA RESandra #: [id number] JOI: 06/07/22 08:[address]: Zeke Oliver DEPT: CYTOLOGY RECD BY: Vicenta Ayoub ENTERED: 06/08/22 06:59 SP TYPE: CYSPIN FL OTHR DR: Dr. Meghann Leach MD Tissues: Urine Procedures: Pap Stain (control) Special Stain Group II Cytospin Fluid HEADER OPERATION: Not noted PRE-OP DIAGNOSIS: BPH with lower urinary tract symptoms TISSUE SUBMITTED: Urine for cytology DIAGNOSIS CYTOLOGY Urine for cytology (cytospin): Negative for high-grade urothelial carcinoma (NHGUC), ([facility]ia Cytology Category II). See comment. SJ:rg 06/08/2022 COMMENT Clinical correlation and appropriate follow up are necessary. The [facility]ia System for urine cytology diagnostic categorization was used in the evaluation of this case. CYTOLOGY STUDY Slides are reviewed. CYTOLOGY GROSS Received is 15 ml of cloudy yellow fluid labeled with the patient's name and and designated per the requisition as urine. Submitted for cytology preparation. / art 06/07/2022 TC:5 CPT: 02237
[2022-06-07 16:59] LABS: Cytology, Body Fluid / CSF SEE PATHOLOGY REPORT
== END | disposition home or self-care (01) ==
LOC: LABSPEC 16:42
PROVIDERS: PCP Internal Medicine; Visit Provider Urology
DX: N40.1 Benign prostatic hyperplasia with lower urinary tract symptoms (principal)
CPT/HCPCS: 88108; 88313

== ENCOUNTER 2022-10-04 11:29 | Day surgery (SDC) | payer MEDICARE, BC, SELFPAY ==
[2022-10-04] VITALS (7 sets, daily range): BP systolic 132–163; BP diastolic 72–87; PULSE 61–67; RESP 16; TEMP 36.1–36.8; O2SAT 96–100; BMI 26.0
[2022-10-04] MEDS: Lactated Ringers 1,000 ML 15 ML IV (12:19)
--- NOTE | 2022-10-04 15:33 | PCM.HP.BLA ---
History and Physical 72 M who presents to the office today to f/u PEG tube that Dr Daniel placed while patient was admitted to the hospital for rehab in 04/2022. He was in the rehab unit and the TCU in 2021 after sustaining multiple cervical fractures and having internal fixation of cervical spine. Pt was unable to take food by mouth due to osteonecrosis of the mandible. He had jaw surgery in 07/2022, is now able to eat soft foods, no longer has to rely on tube feeds. He will eventually get dentures and will be able to expand the foods he can eat. He has gained 20 lbs since PEG was placed. PEG is now tight since he has gained weight. is concerned about infection since small amt purulent matter gets on gauze despite using daily bacitracin. He is almost finished with 8 wks of IV antibiotics since his jaw surgery. Has a port. Reports slightly loose stools. No melena or hematochezia. No abd pain. No nausea, vomiting. No choking or having difficulty swallowing. No heartburn. ROS Const Constitutional: Positive for weight change; No fatigue ENT ENT: Positive for difficulty swallowing Cardio Cardiology: Positive for leg pain with exertion Gastro GI: Positive for diarrhea and difficulty swallowing; No abdominal pain, belching, bloating, change in bowel habits, change in stool character, coffee ground emesis, constipation, cramping, heartburn, feeling full early, excessive flatus, incontinent of stools, Vomiting blood/hematemesis, Blood in stool, loose stools, Black,tarry stools, nausea/dyspepsia, pain with swallowing, vomiting or other Musc Musculoskeletal: Positive for joint pain, muscle weakness, numbness, stiffness, tingling, Arthritis, sciatica, restless legs, leg pain at night and leg pain with exertion Skin Skin: No yellowing of the eye or itchy eyes Neuro Neurology: Positive for numbness, tingling and restless legs Psych Psychiatric: No anxiety and No depression Endo Endocrine: Positive for weight change; No fatigue Aller/Imm Allergy/Immunologic: No itchy eyes Gómez/Lymp Hematologic/Lymphatic: No easy bleeding or easy bruising Exam Const General: cooperative and no acute distress Nutritional Appearance: overweight Orientation: alert, awake and oriented x3 GI Other: PEG in place, some granulated tissue, no bleeding, tiny amt of purulent matter on gauze, no skin erythema Quality Reporting Tobacco Screening ([facility] 138) Smoking Status: Never smoker Assessment and Plan Assessment and Plan (1) Dysphagia: ?Status:?Acute ?Plan: PEG was placed in 04/2022 due to dysphagia secondary to osteonecrosis of the jaw. He had jaw surgery in 07/2022, now is able to eat. He is scheduled for EGD for PEG removal next week.? (2) Status post insertion of percutaneous endoscopic gastrostomy (PEG) tube: ?Status:?Acute ?Plan: as above ? ? ? Orders: Orders EGD 10/04/22 Z93.1 - Gastrostomy status ? I have examined the patient and the H&P has been reviewed. There are no clinical changes since date of exam.
[2022-10-04] MEDS: Silver Nitrate (BKC) 1 EACH (15:55)
--- NOTE | 2022-10-04 16:05 | OP.EGD_ITS ---
Patient Name: Isaiah Rodriguez Procedure Date: 10/04/2022 3:38 PM Date of : 1950 Age: 72 Procedure: Upper GI endoscopy Indications: Dysphagia Providers: Anjum Daniel DO Referring MD: Anjum Daniel DO Medicines: Monitored Anesthesia Care Patient Profile: This is a 72 year old male. Refer to note in patient chart for documentation of history and physical. Patient has symptoms of chronic dysphagia. Complications: No immediate complications. Procedure: Pre-Anesthesia Assessment: - Prior to the procedure, a History and Physical was performed, and patient medications and allergies were reviewed. The patient is competent. The risks and benefits of the procedure and the sedation options and risks were discussed with the patient. All questions were answered and informed consent was obtained. Patient identification and proposed procedure were verified by the physician in the pre-procedure area. Mental Status Examination: alert and oriented. Airway Examination: normal oropharyngeal airway and neck mobility. Respiratory Examination: clear to auscultation. CV Examination: normal. Prophylactic Antibiotics: The patient does not require prophylactic antibiotics. Prior Anticoagulants: The patient has taken no previous anticoagulant or antiplatelet agents. ASA Grade Assessment: II - A patient with mild systemic disease. After reviewing the risks and benefits, the patient was deemed in satisfactory condition to undergo the procedure. The anesthesia plan was to use monitored anesthesia care (MAC). Immediately prior to administration of medications, the patient was re-assessed for adequacy to receive sedatives. The heart rate, respiratory rate, oxygen saturations, blood pressure, adequacy of pulmonary ventilation, and response to care were monitored throughout the procedure. The physical status of the patient was re-assessed after the procedure. After obtaining informed consent, the endoscope was passed under direct vision. Throughout the procedure, the patient's blood pressure, pulse, and oxygen saturations were monitored continuously. The gastroscope was introduced through the mouth, and advanced to the second part of duodenum. The upper GI endoscopy was accomplished without difficulty. The patient tolerated the procedure well. Scope In: 3:48:04 PM Scope Out: 3:55:15 PM Total Procedure Duration Time 0 hours 7 minutes 11 seconds Findings: One benign-appearing, intrinsic stenosis was found 20 to 22 cm from the incisors. This stenosis was moderately severe and measured 3 mm (inner diameter) x 3 cm (in length). The stenosis was traversed. A guidewire was placed and the scope was withdrawn. Dilation was performed with a Savary dilator with no resistance at 60 Fr. The dilation site was examined following endoscope reinsertion and showed moderate improvement in luminal narrowing. Estimated blood loss was minimal. There was evidence of an intact gastrostomy with a patent G-tube present in the gastric body. The PEG required removal because it was no longer necessary. The PEG was cut externally, grasped, and removed with the scope. Removal was easily accomplished. The first portion of the duodenum was normal. Impression: - Benign-appearing esophageal stenosis. Dilated. - Intact gastrostomy with a patent G-tube present. - Normal first portion of the duodenum. - The PEG was cut externally, grasped, and removed with the scope because it was no longer necessary. - No specimens collected. Recommendation: - Discharge patient to home. - Resume previous diet. - Continue present medications. Procedure Code(s): --- Professional --- 68696, Esophagogastroduodenoscopy, flexible, transoral; with removal of foreign body(s) 66359, Esophagogastroduodenoscopy, flexible, transoral; with insertion of guide wire followed by passage of dilator(s) through esophagus over guide wire CPT copyright 2017 [employer]. All rights reserved. The codes documented in this report are preliminary and upon internal affairs commander review may be revised to meet current compliance requirements. Anjum Daniel DO 10/04/2022 4:05:18 PM This report has been signed electronically. Number of Addenda: 0 Note Initiated On: 10/04/2022 3:38 PM
--- NOTE | 2022-10-04 16:06 | OP.CCLET_ITS ---
10/04/2022 Meghann Leach MD [address] [place] [address] [place] [address] Re : Upper GI endoscopy procedure for Isaiah Rodriguez Dear Dr. Leach This procedure was performed on Tuesday, October 04, 2022. My impressions and recommendations are as follows: Impressions : - Benign-appearing esophageal stenosis. Dilated. - Intact gastrostomy with a patent G-tube present. - Normal first portion of the duodenum. - The PEG was cut externally, grasped, and removed with the scope because it was no longer necessary. - No specimens collected. Recommendations : - Discharge patient to home. - Resume previous diet. - Continue present medications. My findings are described in the full procedure note, which is enclosed. If I can be of further assistance, please feel free to contact me at . Sincerely, Anjum Daniel, 10/04/2022 4:05:18 PM This report has been signed electronically.
[2022-10-04] MEDS: 0.9 % NaCl (Sterile) Posiflush 10 mL IV (17:14)
== END 2022-10-04 17:18 | disposition home or self-care (01) ==
LOC: EN 11:30 → AC 11:37
PROVIDERS: PCP Internal Medicine; Referring Provider Internal Medicine Gastroenterology; Visit Provider Internal Medicine Gastroenterology
PROC: 0DJ08ZZ Inspection of Upper Intestinal Tract, Via Natural or Artificial Opening Endoscopic (ICD-10-PCS; CPT 43235; principal; 2022-10-04 12:40)
DX: K22.2 Esophageal obstruction (principal); Z93.1 Gastrostomy status; R13.10 Dysphagia, unspecified; Z79.82 Long term (current) use of aspirin; Z79.899 Other long term (current) drug therapy
CPT/HCPCS: 43248; J7120; A4216; C1769; J2405

== ENCOUNTER → 2022-12-22 | Outpatient (CLI) | payer MEDICARE, BC, SELFPAY ==
[2022-12-22 14:47] LABS: Bacteria 0 SEEN /hpf (None Seen); Mucous, Urine 0 SEEN /hpf (<or=2+); Squamous Epithelial Cells - UA 0 SEEN /hpf (0-5); White Blood Cells 0 SEEN /hpf (0-5)
[2022-12-22 15:37] LABS: Color, Urine Yellow (Yellow); Glucose, Dipstick Normal (Normal); Ketone-Dipstick Negative (Negative); Leukocyte Esterase-Dipstick Negative /ul (Negative); Nitrite-Dipstick Negative (Negative); Occult Blood-Urine 10 /ul (Negative); Protein-Dipstick Negative (Negative); Urine Bilirubin Dipstick Negative (Negative); Urine Clarity Sl. Cloudy (Clear); Urine Urobilinogen Normal (Normal)
[2022-12-22 15:46] LABS: Absolute Lymphocyte Count 2.93 X10^3/uL (0.83-4.51); Absolute Neutrophil Count 4.2 X10^3/uL (2.0-7.7); Basophil# 0.05 X10^3/uL; Basophil% 0.6 % (0-1); Eosinophil# 0.45 X10^3/uL; Eosinophils% 5.5 % (0-5); Hematocrit 42.1 % (40-54); Hemoglobin 13.6 g/dL (13.0-16.5); Lymphocyte # 2.93 X10^3/ul (0.83-4.51); Lymphocyte % 35.5 % (19-41); Mean Corp Hgb Conc 32.3 g/dL (32-36); Mean Corpuscular Hgb 28.4 pg (27.0-32.0); Mean Corpuscular Volume 87.9 fL (80-94); Mean Platelet Vol. 8.9 fl (6.2-12.0); Monocyte# 0.57 X10^3/uL; Monocyte% 6.9 % (0-10); NRBC Flagged by Analyzer 0 % (0-5); Neutrophil # 4.23 X10^3/uL (2.7-7.7); Neutrophil % 51.3 % (47-70); Platelet Count 215 K/mm3 (150-450); RBC Distribution Width CV 17.2 % (11.6-14.6); RET-HE 31.7 pg (30-35); Red Blood Count 4.79 M/mm3 (4.6-6.2); Reticulocyte Count 1.34 % (0.5-1.5); White Blood Count 8.3 K/mm3 (4.4-11.0)
[2022-12-22 15:52] LABS: Red Blood Cells-Urine 0-5 SEEN /hpf (0-5)
[2022-12-22 16:13] LABS: Ferritin 380 ng/mL (26-388); Iron 63 ug/dL (65-175); Iron Binding Capacity,Total 211 ug/dL (250-450); PERCENT IRON SATURATION 29.9 % (15.0-55.0)
== END | disposition home or self-care (01) ==
PROVIDERS: Physician Assistant; PCP Internal Medicine; Referring Provider Internal Medicine Gastroenterology; Visit Provider Internal Medicine Gastroenterology
DX: R30.0 Dysuria (principal); K21.9 Gastro-esophageal reflux disease without esophagitis; D50.9 Iron deficiency anemia, unspecified
CPT/HCPCS: 36415; 81001; 82728; 83540; 83550; 85025; 85045; 87086; 87088

== ENCOUNTER → 2023-02-27 | Outpatient (CLI) | payer MEDICARE, BC, SELFPAY ==
[2023-02-27 10:09] LABS: Absolute Lymphocyte Count 1.94 X10^3/uL (0.83-4.51); Absolute Neutrophil Count 3.5 X10^3/uL (2.0-7.7); Basophil# 0.03 X10^3/uL; Basophil% 0.5 % (0-1); Eosinophil# 0.26 X10^3/uL; Eosinophils% 4.1 % (0-5); Hematocrit 42.1 % (40-54); Hemoglobin 13.5 g/dL (13.0-16.5); Lymphocyte # 1.94 X10^3/ul (0.83-4.51); Lymphocyte % 30.9 % (19-41); Mean Corp Hgb Conc 32.1 g/dL (32-36); Mean Corpuscular Hgb 29.5 pg (27.0-32.0); Mean Corpuscular Volume 92.1 fL (80-94); Monocyte# 0.52 X10^3/uL; Monocyte% 8.3 % (0-10); NRBC Flagged by Analyzer 0 % (0-5); Neutrophil # 3.48 X10^3/uL (2.7-7.7); Neutrophil % 55.4 % (47-70); Platelet Count 182 K/mm3 (150-450); RBC Distribution Width CV 15.9 % (11.6-14.6); RBC Distribution Width SD 53.6 fl (35.1-43.9); Red Blood Count 4.57 M/mm3 (4.6-6.2); White Blood Count 6.3 K/mm3 (4.4-11.0)
[2023-02-27 10:34] LABS: Vitamin B12 1436 pg/mL (211-911)
[2023-02-27 10:45] LABS: ALB/GLOB Ratio 0.7 RATIO (0.9-2.4); AST(SGOT) 17 U/L (15-37); Alanine Aminotransfer ALT/SGPT 14 U/L (16-61); Albumin, Serum 3.3 g/dL (3.2-5.0); Alkaline Phosphatase 113 U/L (45-117); Anion Gap 4 (5-15); BUN 19 mg/dL (7-18); BUN/Creat Ratio 17.6 RATIO (10-20); Calcium,Total 9.2 mg/dL (8.5-10.1); Chloride 104 mmol/L (98-107); Cholesterol 134 mg/dL (200); Creatinine, Serum 1.08 mg/dL (0.70-1.30); EST Glomerular Filtration Rate 72 mL/min (>60); Est Glom Filt Rate - Afr Amer 87 mL/min (>60); Globulin 4.5 g/dL (2.2-4.2); Glucose 107 mg/dL (74-106); High Density Lipoprotein 19 mg/dL; PSA,Total - Annual Screen 1.22 ng/mL (0.00-4.00); Potassium 4.4 mmol/L (3.5-5.1); Protein, Total 7.8 g/dL (6.4-8.2); Sodium Level 138 mmol/L (136-145); Triglycerides 303 mg/dL; Very Low Density Lipoprotein 61 mg/dL (5-40)
== END | disposition home or self-care (01) ==
LOC: LAB 09:21
PROVIDERS: PCP Internal Medicine; Referring Provider Urology; Visit Provider Urology
DX: I11.0 Hypertensive heart disease with heart failure (principal); I50.20 Unspecified systolic (congestive) heart failure; K21.9 Gastro-esophageal reflux disease without esophagitis; E53.8 Deficiency of other specified B group vitamins; Z12.5 Encounter for screening for malignant neoplasm of prostate
CPT/HCPCS: 36415; 80053; 80061; 82607; 84153; 85025; G0103

== ENCOUNTER → 2023-10-31 | Outpatient (CLI) | payer MEDICARE, BC, SELFPAY | END | disposition home or self-care (01) | LOC: LABSPEC 16:03 | PROVIDERS: PCP Internal Medicine; Referring Provider Urology; Visit Provider Urology | DX: R30.0 Dysuria (principal) | CPT/HCPCS: 87086; 87088; 87186 ==

== ENCOUNTER → 2024-01-22 | Outpatient (CLI) | payer MEDICARE, BC, SELFPAY ==
[2024-01-22 12:44] LABS: Absolute Lymphocyte Count 1.68 X10^3/uL (0.83-4.51); Absolute Neutrophil Count 3.9 X10^3/uL (2.0-7.7); Basophil# 0.02 X10^3/uL; Basophil% 0.3 % (0-1); Eosinophil# 0.15 X10^3/uL; Eosinophils% 2.4 % (0-5); Hematocrit 44.2 % (40-54); Hemoglobin 14.1 g/dL (13.0-16.5); Lymphocyte # 1.68 X10^3/ul (0.83-4.51); Lymphocyte % 27.2 % (19-41); Mean Corp Hgb Conc 31.9 g/dL (32-36); Mean Corpuscular Hgb 29.6 pg (27.0-32.0); Mean Corpuscular Volume 92.9 fL (80-94); Mean Platelet Vol. 8.9 fl (6.2-12.0); Monocyte% 6.5 % (0-10); NRBC Flagged by Analyzer 0 % (0-5); Neutrophil % 63.3 % (47-70); Platelet Count 190 K/mm3 (150-450); RBC Distribution Width CV 14.1 % (11.6-14.6); Red Blood Count 4.76 M/mm3 (4.6-6.2); White Blood Count 6.2 K/mm3 (4.4-11.0)
[2024-01-22 12:54] LABS: ALB/GLOB Ratio 0.9 RATIO (0.9-2.4); AST(SGOT) 16 U/L (15-37); Alanine Aminotransfer ALT/SGPT 16 U/L (16-61); Albumin, Serum 3.5 g/dL (3.2-5.0); Alkaline Phosphatase 99 U/L (45-117); Anion Gap 2 (5-15); BUN 14 mg/dL (7-18); BUN/Creat Ratio 13.3 RATIO (10-20); Calcium,Total 9.3 mg/dL (8.5-10.1); Chloride 106 mmol/L (98-107); Cholesterol 161 mg/dL (200); Creatinine, Serum 1.05 mg/dL (0.70-1.30); EST Glomerular Filtration Rate 74 mL/min (>60); Est Glom Filt Rate - Afr Amer 89 mL/min (>60); Glucose 118 mg/dL (74-106); High Density Lipoprotein 26 mg/dL; Potassium 4.6 mmol/L (3.5-5.1); Protein, Total 7.5 g/dL (6.4-8.2); Sodium Level 140 mmol/L (136-145); Triglycerides 139 mg/dL; Very Low Density Lipoprotein 28 mg/dL (5-40)
== END | disposition home or self-care (01) ==
LOC: BIMLAB 11:14
PROVIDERS: PCP Internal Medicine; Visit Provider Internal Medicine
DX: F41.9 Anxiety disorder, unspecified (principal); F32.A Depression, unspecified; I10 Essential (primary) hypertension; N40.0 Benign prostatic hyperplasia without lower urinary tract symptoms
CPT/HCPCS: 36415; 80053; 80061; 84153; 85025

== ENCOUNTER 2024-04-01 14:16 | Outpatient (RCR) | payer MEDICARE, BC, SELFPAY ==
--- NOTE | 2024-04-01 17:09 | HP.SP.EV_ITS ---
Visit History Visit Info Date of Eval: 04/01/24 Visit: 1 Emergency Manager: STELLA History Attending Doctor: YAMILETH CID Referring Doctor: YAMILETH CID Reason for Referral: DENTAL PROSTHESIS. RX HERE Previous speech therapy: Yes Results: bone, blood cancer - chemo pills. had part of jaw bone removed - year ago. Dentures - just got. Pt eats soft foods since his surgery. pt will often eat without his dentures. pt has trouble with chewy textures and harder foods. in remission currently with his cancer. Other Relevant Medical History/Diagnoses/Surgery: no coughing or choking noted. 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 Pt had the tube removed and no longer required non-oral feedings. Objective Dysphagia Thin Liquids Administred via: Cup Oral Transit: WNL Bolus clearance: fully cleared Gagging: No Cough: none observed/unable to assess Pharyngeal phase: immediate laryngeal elevation Comments: Single and sequential sips via cup trialed with no s/s of aspiration Pureed Administered via: Spoon Oral Preparation: minimal chew thrust gravity assisted and WNL Oral Transit: Delay > 10 seconds Bolus clearance: some clearance/residue Gagging: No Cough: none observed/unable to assess Pharyngeal phase: immediate laryngeal elevation Patient Report: dentures shifting around in mouth when chewing and using tongue tip lateralization to move the bolus between the left and right side of his mouth Soft & Bite sized (Mechanical) Administered via: Spoon Oral Preparation: no bolus formation no attempt and minimal chew thrust gravity assisted Oral Transit: Delay > 10 seconds Bolus clearance: some clearance/residue Cough: throat clear Pharyngeal phase: laryngeal elevation mildly restricted slow initiation Patient Report: Dentures shifting around in mouth when chewing and using tongue tip lateralization to move the bolus between the left and right side of his mouth. Pt reported difficulty with aligning his top teeth and his bottom denture to effectively masticate a wet, slippy food like a peach. Comments: One throat clear noted after pt had difficulty with manipulating the peach for mastication. Regular Oral Preparation: no bolus formation no attempt Oral Transit: Delay > 10 seconds Bolus clearance: significant clearance/minimal residue Cough: delayed Pharyngeal phase: immediate laryngeal elevation Patient Report: Fig georgina getting stuck to the right side of his bottom dentures. Unable to use a tongue sweep to clear due to dentures pushing up in the back. Pt attempted to eat of bite of granola but spit it out due to difficulty with mastication. A piece of granola was stuck in his mouth and pt attempted to use his tongue to clear the piece. Pt with a delayed cough when attempting to clear the oral cavity of residue. Comments: A liquid wash was not effective in clearing the fig georgina from the oral cavity. Swallowing Impairment Contributing Factors to Swallowing Impairment: Mastication Inefficiency Other: ill fitting dentures due to jaw bone removal surgery Impact Impact on Safety & Functioning: Risk for Inadequate Nutrition/Hydration Recommendations Modified Barium Swallow/Cookie Swallow Recommended: No Swallowing Treatment: No Diet Texture Recommendations Solids: Soft & Bite sized (Level 6, Chopped) Liquids: Thin (Level 0) Safety Saftey Precautions/Swallowing Recommendations (Check all that Apply): Small Sips & Bites when Eating and Alternate Liquids & Solids Other: Recommend consulting a dental specialist to improve the fit of the dentures. Results Swallowing Within Normal Limits: No (due to issue with denture fit) Subjective Dysarthria/Motor Subjective Subjective: Pt stated that he is practicing his speech by reading out loud at home due to the mechanical changes from talking with no bottom teeth to now talking with his dentures in. Pt was 100% intelligible in conversation and able to work on continued practice at home independently. No treatment warranted to address speech clarity at this time. Swallowing Performance Scale Swallowing Performance Scale Swallowing Performance Scale Result: 3 Mild Reference: Neuro-QoL instrument Radiation Oncology Patient Plan Plan Plan: No speech therapy warranted at this time. Recommend consulting a dental specialist to improve the fit of the dentures. Provided education on compensatory strategies (small bites, alternate sips & bites) and diet recommendation (soft and bite sized texture with thin liquids) to utilize until pt is able to see the dental specialist to promote swallow safety. Recommendations Treatment Warranted: No Education Patient Instruction Patient Education: Diagnosis, Treatment Plan, Goals, Safety Precautions and Diet Level Person Taught: Patient Teaching Method: Discussion and Demonstration Response to teaching: Verbalize understanding
== END 2024-04-01 19:00 | disposition home or self-care (01) ==
LOC: SP 14:16
PROVIDERS: PCP Internal Medicine
DX: M87.180 Osteonecrosis due to drugs, jaw (principal); K08.409 Partial loss of teeth, unspecified cause, unspecified class
CPT/HCPCS: 92610

== ENCOUNTER → 2024-06-24 | Outpatient (CLI) | payer MEDICARE, BC, SELFPAY ==
--- NOTE | 2024-06-24 15:05 | RAD_ITS ---
STUDY: X-RAY - LEFT SHOULDER REASON FOR EXAM: Male, 73 years old. Left Shoulder Pain TECHNIQUE: 4 views of the left shoulder. COMPARISON: None. FINDINGS: There is mild glenohumeral arthrosis. There is mild hypertrophic acromioclavicular arthrosis. Normal acromion. Intact humeral head and visualized proximal humerus. The soft tissue structures are unremarkable. There is no demonstrated fracture. Normal visualized pulmonary apex. RAD/Shoulder min 2 Views IMPRESSION: Mild glenohumeral arthrosis. Mild hypertrophic acromioclavicular arthrosis. Electronically Signed: Ace Gaytan MD at 12:45 EDT ,
== END | disposition home or self-care (01) ==
LOC: RAD 14:49
PROVIDERS: PCP Internal Medicine; Referring Provider Internal Medicine; Visit Provider Internal Medicine
DX: M25.512 Pain in left shoulder (principal)
CPT/HCPCS: 73030

== ENCOUNTER → 2024-09-25 | Outpatient (CLI) | payer MEDICARE, BC, SELFPAY ==
[2024-09-25 15:06] LABS: Absolute Lymphocyte Count 1.42 X10^3/uL (0.83-4.51); Absolute Neutrophil Count 2.4 X10^3/uL (2.0-7.7); Basophil# 0.06 X10^3/uL; Basophil% 1.3 % (0-1); Eosinophil# 0.37 X10^3/uL; Eosinophils% 8.2 % (0-5); Hematocrit 43.4 % (40-54); Hemoglobin 14.6 g/dL (13.0-16.5); Lymphocyte # 1.42 X10^3/ul (0.83-4.51); Lymphocyte % 31.5 % (19-41); Mean Corp Hgb Conc 33.6 g/dL (32-36); Mean Corpuscular Hgb 31.9 pg (27.0-32.0); Mean Platelet Vol. 10.4 fl (6.2-12.0); Monocyte# 0.27 X10^3/uL; NRBC Flagged by Analyzer 0 % (0-5); Neutrophil # 2.36 X10^3/uL (2.7-7.7); Neutrophil % 52.3 % (47-70); Platelet Count 125 K/mm3 (150-450); RBC Distribution Width CV 14.9 % (11.6-14.6); RBC Distribution Width SD 51.3 fl (35.1-43.9); Red Blood Count 4.57 M/mm3 (4.6-6.2); White Blood Count 4.5 K/mm3 (4.4-11.0)
[2024-09-25 15:33] LABS: Vitamin B12 1116 pg/mL (211-911)
[2024-09-25 15:44] LABS: ALB/GLOB Ratio 0.8 RATIO (0.9-2.4); AST(SGOT) 18 U/L (15-37); Alanine Aminotransfer ALT/SGPT 18 U/L (16-61); Albumin, Serum 3.5 g/dL (3.2-5.0); Alkaline Phosphatase 97 U/L (45-117); Anion Gap 4 (5-15); BUN 13 mg/dL (7-18); BUN/Creat Ratio 12.7 RATIO (10-20); Calcium,Total 9.3 mg/dL (8.5-10.1); Chloride 101 mmol/L (98-107); Creatinine, Serum 1.02 mg/dL (0.70-1.30); EST Glomerular Filtration Rate 76 mL/min (>60); Est Glom Filt Rate - Afr Amer 92 mL/min (>60); Globulin 4.3 g/dL (2.2-4.2); Glucose 110 mg/dL (74-106); Potassium 5.5 mmol/L (3.5-5.1); Protein, Total 7.8 g/dL (6.4-8.2); Sodium Level 135 mmol/L (136-145); T4 Free Direct 1.05 ng/dL (0.76-1.46)
== END | disposition home or self-care (01) ==
PROVIDERS: PCP Internal Medicine; Referring Provider Internal Medicine; Visit Provider Internal Medicine
DX: I10 Essential (primary) hypertension (principal); M79.2 Neuralgia and neuritis, unspecified; K21.9 Gastro-esophageal reflux disease without esophagitis
CPT/HCPCS: 36415; 80053; 82607; 84439; 84443; 85025

== ENCOUNTER → 2024-12-20 | Outpatient (CLI) | payer MEDICARE, BC, SELFPAY ==
[2024-12-20 16:30] LABS: ALB/GLOB Ratio 0.9 RATIO (0.9-2.4); AST(SGOT) 26 U/L (<=37); Alanine Aminotransfer ALT/SGPT 14 U/L (<=46); Albumin, Serum 3.7 g/dL (3.4-4.8); Alkaline Phosphatase 81 U/L (40-129); Anion Gap 10 (5-15); BUN 12 mg/dL (4-19); BUN/Creat Ratio 11.6 RATIO (10-20); Calcium,Total 8.6 mg/dL (7.6-11.0); Carbon Dioxide 26.4 mmol/L (21.0-32.0); Chloride 101 mmol/L (98-108); Cholesterol 127 mg/dL (<=200); Creatinine, Serum 0.99 mg/dL (0.70-1.20); EST Glomerular Filtration Rate 81 (>60); Globulin 4.2 g/dL (2.2-4.2); Glucose 109 mg/dL (70-99); High Density Lipoprotein 39 mg/dL; Low Density Lipoprotein Calc. 68 mg/dL; PSA,Total- Diagnostic 1.96 ng/mL (0.00-4.00); Potassium 3.9 mmol/L (3.3-5.1); Protein, Total 7.9 g/dL (5.9-8.4); Sodium Level 136 mmol/L (133-145); Total Bilirubin 0.94 mg/dL (0.00-1.30); Triglycerides 99 mg/dL; Very Low Density Lipoprotein 20 mg/dL (5-40); cholesterol:hdl ratio screen 3.26
== END | disposition home or self-care (01) ==
LOC: BIMLAB 11:58
PROVIDERS: PCP Internal Medicine; Referring Provider Internal Medicine; Visit Provider Internal Medicine
DX: I10 Essential (primary) hypertension (principal); N40.0 Benign prostatic hyperplasia without lower urinary tract symptoms
CPT/HCPCS: 36415; 80053; 80061; 84153

== ENCOUNTER 2025-01-21 13:00 | Outpatient (RCR) | payer MEDICARE, BC, SELFPAY ==
--- NOTE | 2024-12-30 13:14 | HP.PTEVAL ---
Patient's Visit Information Visit Information Visit Information: NIDIA HICKMAN is a 74 year old M referred to Physical Therapy by Dr. Meghann Leach MD with a diagnosis of LEFT SHOULDER PAIN. Date of Evaluation: 12/30/24 Physical Therapist: Leonard You PT, Cert MDT, OCS Visit Plan Frequency: 2x /Week Duration: 4 Weeks Plan: *RTC TEAR* MULTIPLE MYELOMA NO MODALITIES PT INTERVENTIONS GRADED ROM ,STRENGTHENING EX'S SHOULDER ,SCAPULAR STRENGTHENING ,POSTURAL EX'S ,ACTIVITY MODIFICATION Subjective Subjective: This 74 y/o male presents to physical therapy with left shoulder pain. Patient has shoulder pain ~ 1 month falling on shoulder with initially a lot of bruising. Patient seen did x-rays -. Patient Dr recommended PT. Patient is on remission for multiple myeloma. Pain is described as sharp pain global. Aggravating factors raising arm OH ,lifting ,reaching to side . Alleviating factors rest aleve. Denies paresthesia/tingling except feet and hands thus has neuropathy. Patient pain affects sleeping. Patient recently left foot ORIF toes surgery has had lumbar fusion plates screws.Patient condition affects ability to perform ADLS and housework tasks. Patient goals to decrease pain in left shoulder. SOCIAL: maaried VOCATION: retired Pain Left Shoulder: Pain Intensity (Out of 10): 8 Pain Intensity Range: 10 Objective Objective: POSTURE: mild forward posture NEURO: denies paresthesia/tingling except toes and feet PALPATION: tender AC AROM: shoulder flexion 100 degrees ,abduction 90 degrees , ER 80 degrees , IR L1 PROM: flexion /abduction 150 degrees MMT: ( peak force) infraspinatus 4.1 ,subscapularis 9.9 , supraspinatus 0 Special Tests L Shoulder External Rotation Lag Test - RC Tear: Positive L Shoulder Supine Impingement Test - RC Tear: Positive L Shoulder Lift Off Test - Subscapular Tear: Negative L Shoulder Drop Sign - IS Test: Negative L Shoulder Empty Can - SS: Positive L Shoulder Belly Press - SupScap: Positive L Shoulder Neer - Impingement: Positive L Shoulder Novak Jabier - Impingement: Positive L Shoulder Biceps Load Test - Labrum: Positive Balance/Special Test Scores Quick DASH Score: 54.5450 Goals Goal 1:: Patient to be I with HEP for shoulder Goal Time Frame: 4-6 Weeks Goal 2:: Patient to improve AROM shoulder flexion/abduction by 10 degrees with OH activities Goal Time Frame: 4-6 Weeks Goal 4:: Patient to improve strength RTC /deltoid peak force by 2-3 # to improve function Goal Time Frame: 4-6 Weeks Goal 5:: Patient to demonstrate 30-40% improvement with less pain and improved function Goal Time Frame: 4-6 Weeks Rehabilitation Potential Physical Therapy Diagnosis: This patient has left shoulder pain with RTC tear with weakness of supraspinatus and infraspinatus' with pain ,poor ROM and i Rehabilitation Potential: Fair Anticipated Interventions Patient/Client Instruction: Educate patient on: Condition and Plan of Care For the Purpose of:: To decrease pain, To increase ROM, To improve muscle performance and motor function, To improve ability to perform ADL's, To increase tolerance to activity/condition/position, To improve ability of physical actions for home/community/work/leisure, To improve gait and locomotor functions, To decrease soft tissue restriction and To increase flexibility/ROM Therapeutic Exercise to Include: Strength training, Postural training, Passive ROM, Active ROM and Scapular Strength/Stabilization For the Purpose of:: To decrease pain, To increase ROM, To improve muscle performance and motor function, To improve ability to perform ADL's, To increase tolerance to activity/condition/position, To improve ability of physical actions for home/community/work/leisure, To improve health of tissue, To decrease soft tissue restriction, To increase flexibility/ROM and To prevent re-injury Text: Thank you for the opportunity to evaluate your patient. For Medicare and Medicare HMO plans, please review the plan of care and approve it. It will need to be FAXED BACK to us at [phone] for Medicare purposes. For Medicare only, by signing this I certify the plan of care. Please let me know if there are questions or concerns regarding this plan of care. Physician Signature: Date:
--- NOTE | 2024-12-30 13:57 | HP.PTEVAL_ITS ---
Patient's Visit Information Visit Information Visit Information: NIDIA HICKMAN is a 74 year old M referred to Physical Therapy by Dr. Meghann Leach MD with a diagnosis of LEFT SHOULDER PAIN. Date of Evaluation: 12/30/24 Physical Therapist: Leonard You PT, Cert MDT, OCS Visit Plan Frequency: 2x /Week Duration: 4 Weeks Plan: *RTC TEAR* MULTIPLE MYELOMA NO MODALITIES PT INTERVENTIONS GRADED ROM ,STRENGTHENING EX'S SHOULDER ,SCAPULAR STRENGTHENING ,POSTURAL EX'S ,ACTIVITY MODIFICATION Subjective Subjective: This 74 y/o male presents to physical therapy with left shoulder pain. Patient has shoulder pain ~ 1 month falling on shoulder with initially a lot of bruising. Patient seen did x-rays -. Patient Dr recommended PT. Jeet shen is on remission for multiple myeloma. Pain is described as sharp pain global. Aggravating factors raising arm OH ,lifting ,reaching to side . Alleviating factors rest aleve. Denies paresthesia/tingling except feet and hands thus has neuropathy. Patient pain affects sleeping. Patient recently left foot ORIF toes surgery has had lumbar fusion plates screws.Patient condition affects ability to perform ADLS and housework tasks. Patient goals to decrease pain in left shoulder. SOCIAL: maaried VOCATION: retired Pain Left Shoulder: Pain Intensity (Out of 10): 8 Pain Intensity Range: 10 Objective Objective: POSTURE: mild forward posture NEURO: denies paresthesia/tingling except toes and feet PALPATION: tender AC AROM: shoulder flexion 100 degrees ,abduction 90 degrees , ER 80 degrees , IR L1 PROM: flexion /abduction 150 degrees MMT: ( peak force) infraspinatus 4.1 ,subscapularis 9.9 , supraspinatus 0, deltoid 0 Special Tests L Shoulder External Rotation Lag Test - RC Tear: Positive L Shoulder Supine Impingement Test - RC Tear: Positive L Shoulder Lift Off Test - Subscapular Tear: Negative L Shoulder Drop Sign - IS Test: Negative L Shoulder Empty Can - SS: Positive L Shoulder Belly Press - SupScap: Positive L Shoulder Neer - Impingement: Positive L Shoulder Novak Jabier - Impingement: Positive L Shoulder Biceps Load Test - Labrum: Positive Balance/Special Test Scores Quick DASH Score: 54.5450 Goals Goal 1:: Patient to be I with HEP for shoulder Goal Time Frame: 4-6 Weeks Goal 2:: Patient to improve AROM shoulder flexion/abduction by 10 degrees with OH activities Goal Time Frame: 4-6 Weeks Goal 4:: Patient to improve strength RTC /deltoid peak force by 2-3 # to improve function Goal Time Frame: 4-6 Weeks Goal 5:: Patient to demonstrate 30-40% improvement with less pain and improved function Goal Time Frame: 4-6 Weeks Rehabilitation Potential Physical Therapy Diagnosis: This patient has left shoulder pain with RTC tear with weakness of supraspinatus and infraspinatus' with pain ,poor ROM and i Rehabilitation Potential: Fair Anticipated Interventions Patient/Client Instruction: Educate patient on: Condition and Plan of Care For the Purpose of:: To decrease pain, To increase ROM, To improve muscle performance and motor function, To improve ability to perform ADL's, To increase tolerance to activity/condition/position, To improve ability of physical actions for home/community/work/leisure, To improve gait and locomotor functions, To decrease soft tissue restriction and To increase flexibility/ROM Therapeutic Exercise to Include: Strength training, Postural training, Passive ROM, Active ROM and Scapular Strength/Stabilization For the Purpose of:: To decrease pain, To increase ROM, To improve muscle performance and motor function, To improve ability to perform ADL's, To increase tolerance to activity/condition/position, To improve ability of physical actions for home/community/work/leisure, To improve health of tissue, To decrease soft tissue restriction, To increase flexibility/ROM and To prevent re-injury Text: Thank you for the opportunity to evaluate your patient. For Medicare and Medicare HMO plans, please review the plan of care and approve it. It will need to be FAXED BACK to us at [phone] for Medicare purposes. For Medicare only, by signing this I certify the plan of care. Please let me know if there are questions or concerns regarding this plan of care. Physician Signature: Date:
--- NOTE | 2025-05-12 18:09 | HP.PT.NRP ---
Patient Information Patient Information: NIDIA HICKMAN was seen in my office for initial evaluation on 12/30/24. The following Plan of Care was established for this patient: POC Established Initial Frequency: 2x /Week Initial Duration: 4 Weeks Anticipated Interventions Patient/Client Instruction: Educate patient on: Condition and Plan of Care For the Purpose of:: To decrease pain, To increase ROM, To improve muscle performance and motor function, To improve ability to perform ADL's, To increase tolerance to activity/condition/position, To improve ability of physical actions for home/community/work/leisure, To improve gait and locomotor functions, To decrease soft tissue restriction and To increase flexibility/ROM Therapeutic Exercise to Include: Strength training, Postural training, Passive ROM, Active ROM and Scapular Strength/Stabilization For the Purpose of:: To decrease pain, To increase ROM, To improve muscle performance and motor function, To improve ability to perform ADL's, To increase tolerance to activity/condition/position, To improve ability of physical actions for home/community/work/leisure, To improve health of tissue, To decrease soft tissue restriction, To increase flexibility/ROM and To prevent re-injury Last Seen Last Seen: This patient was last seen in our office . Pertinent comments regarding their Physical therapy will appear below: Patient seen for PT to manage RTC tear with HEP At this point I will be discontinuing this patient from physical therapy. I would be happy to see this patient again in the future if found appropriate by the physician. Thank you! Leonard You, PT, Cert MDT, OCS Balance/Gait/Functional tests Balance/Special Test Scores Quick DASH Score: 54.5450
== END 2025-01-21 19:00 | disposition home or self-care (01) ==
LOC: PT 13:00
PROVIDERS: PCP Internal Medicine; Referring Provider Internal Medicine; Visit Provider Internal Medicine
DX: M25.512 Pain in left shoulder (principal)
CPT/HCPCS: 97110; 97162

== ENCOUNTER → 2025-03-24 | Outpatient (CLI) | payer MEDICARE, BC, SELFPAY ==
[2025-03-24 12:46] LABS: Hematocrit 37.8 % (40-54); Hemoglobin 13.2 g/dL (13.0-16.5); Immature Granulocytes Count 0.040 X10^3/uL (0.0-0.0); Mean Corp Hgb Conc 34.9 g/dL (32-36); Mean Corpuscular Volume 98.2 fL (80-94); Mean Platelet Vol. 9.2 fl (6.2-12.0); NRBC Flagged by Analyzer 0 % (0-5); Platelet Count 134 K/mm3 (150-450); RBC Distribution Width CV 14.0 % (11.6-14.6); RBC Distribution Width SD 50.9 fl (35.1-43.9); Red Blood Count 3.85 M/mm3 (4.6-6.2); White Blood Count 4.2 K/mm3 (4.4-11.0)
[2025-03-24 13:23] LABS: AST(SGOT) 25 U/L (<=37); Alanine Aminotransfer ALT/SGPT 15 U/L (<=46); Albumin, Serum 3.8 g/dL (3.4-4.8); Alkaline Phosphatase 86 U/L (40-129); Anion Gap 10 (5-15); BUN 12 mg/dL (4-19); BUN/Creat Ratio 13.1 RATIO (10-20); Calcium,Total 9.0 mg/dL (7.6-11.0); Carbon Dioxide 27.5 mmol/L (21.0-32.0); Chloride 103 mmol/L (98-108); Cholesterol 121 mg/dL (<=200); Globulin 3.6 g/dL (2.2-4.2); Glucose 94 mg/dL (70-99); Low Density Lipoprotein Calc. 53 mg/dL; Potassium 3.6 mmol/L (3.3-5.1); Triglycerides 155 mg/dL; Very Low Density Lipoprotein 31 mg/dL (5-40); cholesterol:hdl ratio screen 3.27
== END | disposition home or self-care (01) ==
LOC: BIMLAB 10:44
PROVIDERS: PCP Internal Medicine; Referring Provider Internal Medicine; Visit Provider Internal Medicine
DX: I10 Essential (primary) hypertension (principal); K21.9 Gastro-esophageal reflux disease without esophagitis; F32.A Depression, unspecified; F41.9 Anxiety disorder, unspecified
CPT/HCPCS: 36415; 80053; 80061; 85025

== ENCOUNTER → 2025-08-19 | Outpatient (CLI) | payer MEDICARE, BC, SELFPAY ==
--- NOTE | 2025-08-19 15:14 | CT_ITS ---
PROCEDURE: EXTREMITY LOWER WITH CONTRAST 08/19/2025 REASON FOR EXAM: RIGHT THIGH SWELLING TECHNIQUE: Procedure Code: CTELW Modality: CT Procedure: EXTREMITY LOWER WITH CONTRAST Coronal and Sagittal reconstruction series were provided. CONTRAST: 98 cc [id number] One or more dose reduction techniques were used (e.g., Automated exposure control, adjustment of the mA and/or kV according to patient size, use of iterative reconstruction technique). RADIATION DOSE SUMMARY: DLP: 923 mGycm COMPARISON: None FINDINGS: Bones: There is no fracture or dislocation identified. There is no suspicious lytic or blastic lesion. 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 There is no visible effusion. Soft Tissues: There is a 3.2 x 2.7 cm uncomplicated fat containing right inguinal hernia. Vascular calcifications are noted. There are surgical clips present with fatty replacement and muscular atrophy of the vastus intermedius. There is no suspicious mass or cyst. There is no adenopathy. Neurovascular structures appear intact. Atherosclerotic calcifications are noted. CT/Extremity Lower WITH Contrast IMPRESSION: There are surgical clips present with fatty replacement and muscular atrophy of the vastus intermedius. There is no suspicious mass or cyst. There is a 3.2 x 2.7 cm uncomplicated fat containing right inguinal hernia. Reading Location: [facility]
[2025-08-19] MEDS: 0.9% Saline Lock 10 ML Syringe IV (15:35)
== END | disposition home or self-care (01) ==
LOC: CT 15:13
PROVIDERS: PCP Internal Medicine; Referring Provider Internal Medicine; Visit Provider Internal Medicine
DX: R22.41 Localized swelling, mass and lump, right lower limb (principal)
CPT/HCPCS: 73701; Q9967; A4216